=== PATIENT | female | born 1960 | race Caucasian/White ===

== ENCOUNTER 2022-11-05 09:53 | Outpatient (OUT) | payer MEDICAID, SELFPAY ==
[2022-11-05 12:11] LABS: Alanine Aminotransferase 50 U/L (14-59); Albumin Globulin Ratio 0.9; Alkaline Phosphatase 54 U/L (46-116); Anion Gap 13.3; Aspartate Amino Transferase 31 U/L (15-37); BUN Creatinine Ratio 18.3; Bilirubin Total 0.4 mg/dL (0.2-1.0); Calcium 9.6 mg/dL (8.5-10.1); Carbon Dioxide 26.8 mmol/L (21.0-32.0); Chloride 102 mmol/L (98-107); Chol HDL Ratio 3.8; Cholesterol 169 mg/dL (<=200); Estimated GFR (African America >60 (>=60); Estimated GFR (Non-African Ame >60 (>=60); Globulin 4.3 g/dL; Glucose 139 mg/dL (74-106); HDL Cholesterol 44 mg/dL (40-60); LDL Cholesterol Calculated 110.4 mg/dL; Potassium 4.1 mmol/L (3.5-5.1); Sodium 138 mmol/L (136-145); Total Protein 8.3 g/dL (6.4-8.2); Triglycerides 73 mg/dL (<=150); VLDL CHOLESTEROL 14.6 mg/dL
[2022-11-05 13:13] LABS: Estimated Average Glucose 148 mg/dL; Glycohemoglobin A1C 6.8 % (4.5-6.2)
== END 2022-11-05 09:54 | disposition home or self-care (01) ==
LOC: LAB 09:55
PROVIDERS: PCP Family Medicine; Visit Provider Family Medicine
DX: I12.9 Hypertensive chronic kidney disease with stage 1 through stage 4 chronic kidney disease, or unspecified chronic kidney disease (principal); N18.31 Chronic kidney disease, stage 3a; E11.22 Type 2 diabetes mellitus with diabetic chronic kidney disease; E78.2 Mixed hyperlipidemia
CPT/HCPCS: 36415; 80053; 80061; 83036

== ENCOUNTER 2022-12-24 13:37 | Outpatient (OUT) | payer MEDICAID, SELFPAY ==
[2022-12-24 14:29] LABS: Free T4 1.35 ng/dL (0.76-1.46)
[2022-12-24 14:34] LABS: Thyroid Stimulating Hormone 2.117 uIU/mL (0.358-3.740)
== END 2022-12-24 13:38 | disposition home or self-care (01) ==
LOC: LAB 13:38
PROVIDERS: PCP Family Medicine; Visit Provider Family Medicine
DX: E06.3 Autoimmune thyroiditis (principal); E03.9 Hypothyroidism, unspecified; G93.32 Myalgic encephalomyelitis/chronic fatigue syndrome
CPT/HCPCS: 36415; 84439; 84443

== ENCOUNTER 2023-06-16 08:15 | Outpatient (OUT) | payer MEDICAID, SELFPAY ==
[2023-06-16 10:09] LABS: Estimated Average Glucose 166 mg/dL; Glycohemoglobin A1C 7.4 % (4.5-6.2)
== END 2023-06-16 08:16 | disposition home or self-care (01) ==
LOC: LAB 08:15
PROVIDERS: PCP Family Medicine; Visit Provider Family Medicine
DX: E11.22 Type 2 diabetes mellitus with diabetic chronic kidney disease (principal); N18.31 Chronic kidney disease, stage 3a
CPT/HCPCS: 36415; 83036

== ENCOUNTER 2023-10-07 10:29 | Outpatient (OUT) | payer MEDICAID, SELFPAY ==
--- OUTSIDE RECORDS SUMMARY | 2023-10-07 10:52 | XMS_ITS | CCD ---
Author Organization [facility] Care Team Providers Care Coke Wheeler Name Role Phone COLT BOGGS Referring Unavailable HEMEYER, COLT Primary Care Unavailable RENNO, ANAS Attending Unavailable RENNO, ANAS Admitting Unavailable OK Procedure Practitioner Unavailab REG Molina Surgeon Unavailable OK Procedure Practitioner Unavailab MARIBEL Richardson Surgeon Unavail able OK Procedure Practitioner Unavailab TK Ha A Surgeon Unavailable OK Procedure Practitioner Unavailab le UNKNOWN, PROVIDER Surgeon Unavailable HEMEYER ., DR DALEY Attending Unavailable HEMEYER ., DR DALEY Primary Care Unavailable HEMEYER ., DR DALEY Admitting Unavailable HEMEYER ., DR DALEY Consulting Unavailable HEMEYER ., DR DALEY Primary Care Unavailable HEMEYER ., DR DALEY Admitting Unavailable HEMEYER ., DR DALEY Attending Unavailable HEMEYER ., DR DALEY Attending Unavailable HEMEYER ., DR DALEY Consulting Unavailable HEMEYER ., DR DALEY Primary Care Unavailable HEMEYER ., DR DALEY Admitting Unavailable HEMEYER ., DR DALEY Attending Unavailable HEMEYER ., DR DALEY Consulting Unavailable HEMEYER ., DR DALEY Primary Care Unavailable HEMEYER ., DR DALEY Admitting Unavailable HEMEYER ., DR DALEY Consulting Unavailable HEMEYER ., DR DALEY Primary Care Unavailable HEMEYER ., DR DALEY Admitting Unavailable HEMEYER ., DR DALEY Attending Unavailable HEMEYER, COLT J Attending Unavailable Allergies Allergy Classification Reported Allergen(s) Allergy Type Date of Onset Reaction(s) Facility (2 sources) Nalbuphine Drug Allergy 09-13-2013 [facility] Repository Problems Problem Classification Problem Date Documented Da te Episodic/Chronic Cardiac dysrhythmias (1 source) Tachycardia, unspecified; Translations: [TACHYCARDIA, UNSPECIFIED] Onset: 05-23-2018 Episodic Chronic kidney disease (1 source) Chronic kidney disease; Translations: [CHRONIC KIDNEY DISEASE STAGE 3A] Onset: 02-28-2022 Diabetes mellitus with complications (5 sources) Type 2 diabetes mellitus with diabetic chronic kidney disease; Translations: [TYPE 2 DM W/DIABETIC CKD] Onset: 02-28-2022 Chronic Diabetes mellitus without complication (1 source) Type 2 diabetes mellitus without complications; Translations: [TYPE 2 DIABETES MELLITUS WITHOUT COMPLICATIONS] Onset: 05-23-2018 Chronic Disorders of lipid metabolism (2 sources) Hyperlipidemia, unspecified; Translations: [Mixed hyperlipidemia] Onset: 05-23-2018 Chronic Essential hypertension (1 source) Essential (primary) hypertension; Translations: [ESSENTIAL (PRIMARY) HYPERTENSION] Onset: 05-23-2018 Chronic Hypertension with complications and secondary hypertension (4 sources) Hypertensive chronic kidney disease with stage 1 through stage 4 chronic kidney disease, or unspecified chronic kidney disease; Translations: [HTN CKD W/STAGE 1-4 CKD/UNS CKD] Onset: 02-25-2022 Chronic Malaise and fatigue (4 sources) Chronic fatigue, unspecified; Translations: [CHRONIC FATIGUE UNSPECIFIED] Onset: 07-04-2022 Chronic Other aftercare (1 source) halfway (current) use of aspirin; Translations: [ALF (CURRENT) USE OF ASPIRIN] Onset: 05-23-2018 Episodic Other aftercare (1 source) 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; Translations: [ALF (CURRENT) USE OF ORAL HYPOGLYCEMIC DRUGS] Onset: 05-23-2018 Other nervous system disorders (1 source) Encephalopathy, unspecified; Translations: [ENCEPHALOPATHY, UNSPECIFIED] Onset: 05-23-2018 Chronic Residual codes; unclassified (2 sources) Altered mental status, unspecified; Translations: [ALTERED MENTAL STATUS, UNSPECIFIED] Onset: 05-23-2018 Episodic Residual codes; unclassified (1 source) Acquired absence of other specified parts of digestive tract; Translations: [ACQUIRED ABSENCE OF OTHER SPECIFIED PARTS OF DIGESTIVE TRACT] Onset: 05-23-2018 Episodic Respiratory failure; insufficiency; arrest (adult) (1 source) Acute respiratory failure with hypoxia; Translations: [ACUTE RESPIRATORY FAILURE WITH HYPOXIA] Onset: 05-23-2018 Episodic Thyroid disorders (4 sources) Hypothyroidism, unspecified; Translations: [Thyrotoxicosis with diffuse goiter without thyrotoxic crisis or storm] Onset: 05-23-2018 Chronic Unclassified (1 source) AMS, LETHARGY Onset: 05-23-2018 Unclassified (1 source) AMS Onset: 05-23-2018 Results Test Name Value Interpretation Reference Range Facility GLYCOHEMOGLOBIN A1Con 2022 ADA RECOMMENDATION SEE BELOW Normal [facility] Comment on above: Result Comment: ADA RECOMMENDED LIMIT 4.0 - 6.0 ADA THERAPEUTIC TARGET < 7.0 ACTION SUGGESTED > 7.0 Performed By: #### A 1C #### [facility] [address] [place] [address] Dr. Veronica Floyd Glucose [Mass/Vol] 160 mg/dL Normal [facility] Comment on above: Performed By: #### A 1C #### [facility] [address] [place] [address] Dr. Veronica Floyd HbA1c (Bld) [Mass fraction] 7.2 % Critically high 4.5-6.2 [facility] Comment on above: Performed By: #### A 1C #### [facility] [address] [place] [address] Dr. Veronica Floyd FREE T3on 07-04-2022 FREE T3 2.59 pg/mlL Normal 2.18-3.98 [facility] Comment on above: Performed By: #### T SH, FT3 #### [facility] [address] [place] [address] Dr. Veronica Floyd FREE T4on 07-04-2022 Free T4 [Mass/Vol] 1.25 ng/dL Normal 0.76-1.46 [facility] Comment on above: Performed By: #### F T4 #### [facility] [address] [place] [address] Dr. Veronica Floyd TSHon 07-04-2022 TSH 3.607 uIU/mL Normal 0.358-3.740 [facility] Comment on above: Performed By: #### T SH, FT3 #### [facility] [address] [place] [address] Dr. Veronica Floyd GLYCOHEMOGLOBIN A1Con 2021 ADA RECOMMENDATION SEE BELOW Normal [facility] Comment on above: Result Comment: ADA RECOMMENDED LIMIT 4.0 - 6.0 ADA THERAPEUTIC TARGET < 7.0 ACTION SUGGESTED > 7.0 Performed By: #### A 1C #### [facility] [address] [address] [address] Veronica Floyd Glucose [Mass/Vol] 154 mg/dL Normal [facility] Comment on above: Performed By: #### A 1C #### [facility] [address] [place] [address] Dr. Veronica Floyd HbA1c (Bld) [Mass fraction] 7.0 % Critically high 4.5-6.2 [facility] Comment on above: Performed By: #### A 1C #### [facility] [address] [place] [address] Dr. Veronica Floyd LIPID PROFILEon 02-25-2022 CHOL-HDL RATIO NORM SEE BELOW Normal [facility] Comment on above: Result Comment: 3.3 - 4.4 LOW RISK 4.4 - 7.1 AVERAGE RISK 7.1 - 11.0 MODERATE RISK >11.0 HIGH RISK Performed By: #### C MP, LIPID #### [facility] [address] [place] [address] Dr. Veronica Floyd Cholesterol [Mass/Vol] 173 mg/dL Normal <=200 [facility] Comment on above: Performed By: #### C MP, LIPID #### [facility] [address] [place] [address] Dr. Veronica Floyd Cholesterol in HDL [Mass/Vol] 44 mg/dL Normal 40-60 [facility] Comment on above: Performed By: #### C MP, LIPID #### [facility] [address] [place] [address] Dr. Veronica Floyd Cholesterol in LDL [Mass/Vol] 114.6 mg/dL Normal [facility] Comment on above: Performed By: #### C MP, LIPID #### [facility] [address] [place] [address] Dr. Veronica Floyd Cholesterol.total/ Cholesterol in HDL [Mass ratio] 3.9 {ratio} Normal [facility] Comment on above: Performed By: #### C MP, LIPID #### [facility] [address] [place] [address] Dr. Veronica Floyd HDL NORMAL > or = 60 mg/dl - LO W CARDIOVASCULAR RISK <40 mg/dl - HIGH CARDIOVASCULAR RISK Normal [facility] Comment on above: Performed By: #### C MP, LIPID #### [facility] [address] [address] [address] Veronica Floyd LDL CALC NORMAL SEE BELOW Normal [facility] Comment on above: Result Comment: <100 mg/dl OPTIMAL 100 - 129 mg/dl NEAR OR ABOVE OPTIMAL 130 - 159 mg/dl BORDERLINE HIGH 160 - 189 mg/dl HIGH >190 mg/dl VERY HIGH Performed By: #### C MP, LIPID #### [facility] [address] [address] [address] Veronica Floyd Triglyceride [Mass/Vol] 72 mg/dL Normal <=150 [facility] Comment on above: Performed By: #### C MP, LIPID #### [facility] [address] [address] [address] Veronica Floyd VLDL CALC 14.4 mg/dL Normal [facility] Comment on above: Performed By: #### C MP, LIPID #### [facility] [address] [address] [address] Veronica Floyd PROF 14(COMP METB)on 02-25- 022 Albumin [Mass/Vol] 4.0 g/dL Normal 3.4-5.0 [facility] Comment on above: Performed By: #### C MP, LIPID #### [facility] [address] [address] [address] Veronica Floyd Albumin/Globulin [Mass ratio] 1.0 {ratio} Normal [facility] Comment on above: Performed By: #### C MP, LIPID #### [facility] [address] [address] [address] Veronica Floyd ALP [Catalytic activity/Vol] 53 U/L Normal 46-116 [facility] Comment on above: Performed By: #### C MP, LIPID #### [facility] [address] [address] [address] Veronica Floyd ALT [Catalytic activity/Vol] 45 U/L Normal 14-59 [facility] Comment on above: Performed By: #### C MP, LIPID #### [facility] [address] [address] [address] Veronica Floyd Anion gap [Moles/Vol] 9.8 mmol/L Normal [facility] Comment on above: Performed By: #### C MP, LIPID #### [facility] [address] [address] [address] Veronica Floyd AST [Catalytic activity/Vol] 23 U/L Normal 15-37 [facility] Comment on above: Performed By: #### C MP, LIPID #### [facility] [address] [address] [address] Veronica Floyd Bilirubin [Mass/Vol] 0.3 mg/dL Normal 0.2-1.0 [facility] Comment on above: Performed By: #### C MP, LIPID #### [facility] [address] [address] [address] Veronica Floyd Calcium [Mass/Vol] 9.5 mg/dL Normal 8.5-10.1 [facility] Comment on above: Performed By: #### C MP, LIPID #### [facility] [address] [address] [address] Veronica Floyd Chloride [Moles/Vol] 101 mmol/L Normal 98-107 [facility] Comment on above: Performed By: #### C MP, LIPID #### [facility] [address] [address] [address] Veronica Floyd CO2 [Moles/Vol] 28.4 mmol/L Normal 21.0-32.0 [facility] Comment on above: Performed By: #### C MP, LIPID #### [facility] [address] [address] [address] Veronica Floyd Creatinine [Mass/Vol] 0.90 mg/dL Normal 0.55-1.02 [facility] Comment on above: Performed By: #### C MP, LIPID #### [facility] [address] [address] [address] Veronica Floyd EGFR-AF FRENCH >60 Normal >=60 [facility] Comment on above: Performed By: #### C MP, LIPID #### [facility] [address] [address] [address] Veronica Floyd EGFR-NON AF FRENCH >60 Normal >=60 [facility] Comment on above: Performed By: #### C MP, LIPID #### [facility] [address] [address] [address] Veronica Floyd Globulin (S) [Mass/Vol] 4.1 g/dL Normal [facility] Comment on above: Performed By: #### C MP, LIPID #### [facility] [address] [address] [address] Veronica Floyd Glucose [Mass/Vol] 136 mg/dL Critically high 74-106 [facility] Comment on above: Performed By: #### C MP, LIPID #### [facility] [address] [place] [address] Dr. Veronica Floyd Potassium [Moles/Vol] 4.2 mmol/L Normal 3.5-5.1 [facility] Comment on above: Performed By: #### C MP, LIPID #### [facility] [address] [place] [address] Dr. Veronica Floyd Protein [Mass/Vol] 8.1 g/dL Normal 6.4-8.2 [facility] Comment on above: Performed By: #### C MP, LIPID #### [facility] [address] [place] [address] Dr. Veronica Floyd Sodium [Moles/Vol] 135 mmol/L Critically low 136-145 [facility] Comment on above: Performed By: #### C MP, LIPID #### [facility] [address] [place] [address] Dr. Veronica Floyd Urea nitrogen [Mass/Vol] 18.0 mg/dL Normal 7.0-18.0 [facility] Comment on above: Performed By: #### C MP, LIPID #### [facility] [address] [place] [address] Dr. Veronica Floyd Urea nitrogen/Creatinin e [Mass ratio] 20.0 mg/mg Normal [facility] Comment on above: Performed By: #### C MP, LIPID #### [facility] [address] [address] [address] Veronica Floyd GLYCOHEMOGLOBIN A1Con 2021 ADA RECOMMENDATION SEE BELOW Normal [facility] Comment on above: Result Comment: ADA RECOMMENDED LIMIT 4.0 - 6.0 ADA THERAPEUTIC TARGET < 7.0 ACTION SUGGESTED > 7.0 Performed By: #### A 1C #### [facility] [address] [address] [address] Veronica Floyd Glucose [Mass/Vol] 137 mg/dL Normal [facility] Comment on above: Performed By: #### A 1C #### [facility] [address] [address] [address] Veronica Floyd HbA1c (Bld) [Mass fraction] 6.4 % Critically high 4.5-6.2 [facility] Comment on above: Performed By: #### A 1C #### [facility] [address] [place] [address] Dr. Veronica Floyd BASIC METABOLIC PANELon 05-16 Calcium mass conc 9.5 mg/dL Normal 8.6-10.3 [facility] Comment on above: Order Comment: No: D o not add to previous draw Performed By: #### 3 1018 #### [facility] [address] [place] [address], [place] Chloride molar conc 102 mmol/L Normal 98-107 [facility] Comment on above: Order Comment: No: D o not add to previous draw Performed By: #### 3 1018 #### [facility] [address] [place] [address], [place] CO2 molar conc 30 mmol/L Normal 21-31 [facility] Comment on above: Order Comment: No: D o not add to previous draw Performed By: #### 3 1018 #### [facility] [address] [place] [address], [place] Creatinine mass conc 1.14 mg/dL Normal 0.60-1.20 [facility] Comment on above: Order Comment: No: D o not add to previous draw Performed By: #### 3 1018 #### [facility] [address] [place] [address], [place] GFR/1.73 sq M predicted among blacks MDRD vol rate/area (S/P/Bld) 59 ml/min/1.73sq m Abnormal >60 [facility] Comment on above: Order Comment: No: D o not add to previous draw Performed By: #### 3 1018 #### [facility] [address] [place] [address], [place] GFR/1.73 sq M predicted among non-blacks MDRD vol rate/area (S/P/Bld) 49 ml/min/1.73sq m Abnormal >60 [facility] Comment on above: Order Comment: No: D o not add to previous draw Performed By: #### 3 1018 #### [facility] [address] [place] [address], [place] Glucose mass conc 132 mg/dL High 70-100 [facility] Comment on above: Order Comment: No: D o not add to previous draw Performed By: #### 3 1018 #### [facility] [address] [place] [address], [place] Potassium molar conc 3.8 mmol/L Normal 3.5-5.1 [facility] Comment on above: Order Comment: No: D o not add to previous draw Performed By: #### 3 1018 #### [facility] [address] [place] [address], [place] Sodium molar conc 141 mmol/L Normal 136-145 [facility] Comment on above: Order Comment: No: D o not add to previous draw Performed By: #### 3 1018 #### [facility] [address] [place] [address], [place] Urea nitrogen mass conc 28 mg/dL High 7-25 [facility] Comment on above: Order Comment: No: D o not add to previous draw Performed By: #### 3 1018 #### [facility] [address] CBC COMPLETE BLOOD COUNTon 0 - Erythrocyte distribution width Ratio (RBC) 14.6 % Normal 11.5-15.0 [facility] Comment on above: Order Comment: No: D o not add to previous draw Performed By: #### 3 1018 #### [facility] [address] [place] [address], [facility] Hematocrit Volume Fraction (Bld) 39.7 % Normal 36.0-45.0 [facility] Comment on above: Order Comment: No: D o not add to previous draw Performed By: #### 3 1018 #### [facility] [address] [place] [address], [facility] Hemoglobin mass conc (Bld) 12.8 g/dL Normal 12.0-15.0 [facility] Comment on above: Order Comment: No: D o not add to previous draw Performed By: #### 3 1018 #### [facility] [address] [facility] [place] [address], [facility] MCH Entitic mass (RBC) 27.9 pg Normal 27.0-33.0 [facility] Comment on above: Order Comment: No: D o not add to previous draw Performed By: #### 3 1018 #### [facility] [address] [facility] [place] [address], [facility] MCHC mass conc (RBC) 32.2 g/dL Normal 32.0-35.0 [facility] Comment on above: Order Comment: No: D o not add to previous draw Performed By: #### 3 1018 #### [facility] [address] [place] [address], [facility] MCV Entitic volume (RBC) 86.7 fL Normal 82.0-98.0 [facility] Comment on above: Order Comment: No: D o not add to previous draw Performed By: #### 3 1018 #### [facility] [address] [facility]. [address] Nucleated RBC/100 WBC Ratio (Bld) 0 % Normal 0-0 [facility] Comment on above: Order Comment: No: D o not add to previous draw Performed By: #### 3 1018 #### [facility] [address] [place] [address], [facility] PLAT CNT 256 10*3/uL Normal 150-400 [facility] Comment on above: Order Comment: No: D o not add to previous draw Performed By: #### 3 1018 #### [facility] [address] RBC #/vol (Bld) 4.58 10*6/uL Normal 3.80-5.00 [facility] Comment on above: Order Comment: No: D o not add to previous draw Performed By: #### 3 1018 #### [facility] [address] [facility]. [address] WBC #/vol (Bld) 5.70 10*3/uL Normal 4.00-10.60 [facility] Comment on above: Order Comment: No: D o not add to previous draw Performed By: #### 3 1018 #### [facility] [address] [facility]. [address] IMMUNOGLOB BLon 06-03-2018 IgA mass conc 364 mg/dL Normal 60-413 [facility] Comment on above: Order Comment: No: D o not add to previous draw Performed By: #### 3 1018 #### [facility] [address] IgG mass conc 1180 mg/dL Normal 591-1540 [facility] Comment on above: Order Comment: No: D o not add to previous draw Performed By: #### 3 1018 #### [facility] [address] [place] [address], [facility] IgM mass conc 187 mg/dL Normal 54-285 [facility] Comment on above: Order Comment: No: D o not add to previous draw Performed By: #### 3 1018 #### [facility] [address] [place] [address], [facility] IMMUNOGLOBULIN Andrea 9 [place] Normal [facility] Comment on above: Order Comment: No: D o not add to previous draw IMMUNOGLOBULIN E 230 IU/mL High <101 [facility] Comment on above: Order Comment: No: D o not add to previous draw POC GLUCOSE LABon 06-03-2018 Glucose mass conc 250 mg/dL High 70-100 [facility] Comment on above: Performed By: #### 3 1018 #### [facility] [address] [place] [address], [facility] Glucose mass conc 254 mg/dL High 70-100 [facility] Comment on above: Performed By: #### 3 1018 #### [facility] [address] [place] [address], [facility] Glucose mass conc 131 mg/dL High 70-100 [facility] Comment on above: Performed By: #### 3 1018 #### [facility] [address] [place] [address], [facility] Glucose mass conc 117 mg/dL High 70-100 [facility] Comment on above: Performed By: #### 3 1018 #### [facility] [address] [place] [address], [place] BASIC METABOLIC PANELon 05-15 Calcium mass conc 9.4 mg/dL Normal 8.6-10.3 [facility] Comment on above: Order Comment: No: D o not add to previous draw Performed By: #### 3 1018 #### [facility] [address] [place] [address], [facility] Chloride molar conc 97 mmol/L Low 98-107 [facility] Comment on above: Order Comment: No: D o not add to previous draw Performed By: #### 3 1018 #### [facility] [address] [place] [address], [facility] CO2 molar conc 30 mmol/L Normal 21-31 [facility] Comment on above: Order Comment: No: D o not add to previous draw Performed By: #### 3 1018 #### [facility] [address] [place] [address], [place] Creatinine mass conc 1.15 mg/dL Normal 0.60-1.20 [facility] Comment on above: Order Comment: No: D o not add to previous draw Performed By: #### 3 1018 #### [facility] [address] [place] [address], [place] GFR/1.73 sq M predicted among blacks MDRD vol rate/area (S/P/Bld) 59 ml/min/1.73sq m Abnormal >60 [facility] Comment on above: Order Comment: No: D o not add to previous draw Performed By: #### 3 1018 #### [facility] [address] [place] [address], [facility] GFR/1.73 sq M predicted among non-blacks MDRD vol rate/area (S/P/Bld) 49 ml/min/1.73sq m Abnormal >60 [facility] Comment on above: Order Comment: No: D o not add to previous draw Performed By: #### 3 1018 #### [facility] [address] [place] [address], [place] Glucose mass conc 172 mg/dL High 70-100 [facility] Comment on above: Order Comment: No: D o not add to previous draw Performed By: #### 3 1018 #### [facility] [address] [place] [address], [place] Potassium molar conc 2.9 mmol/L Low 3.5-5.1 [facility] Comment on above: Order Comment: No: D o not add to previous draw Performed By: #### 3 1018 #### [facility] [address] [place] [address], [facility] Sodium molar conc 138 mmol/L Normal 136-145 [facility] Comment on above: Order Comment: No: D o not add to previous draw Performed By: #### 3 1018 #### [facility] [address] [place] [address], [facility] Urea nitrogen mass conc 24 mg/dL Normal 7-25 [facility] Comment on above: Order Comment: No: D o not add to previous draw Performed By: #### 3 1018 #### [facility] [address] [place] [address], [facility] HEMOGLOBIN A1Con 06-02-2018 Hemoglobin A1c/Hemoglobin.tot al mass fraction (Bld) 7.1 % High 4.0-6.0 [facility] Comment on above: Order Comment: Yes: Add to Previous draw if able Performed By: #### 3 1018 #### [facility] [address] [facility] [place] [address], [facility] Hemoglobin A1c/Hemoglobin.tot al mass fraction (Bld) 157 mg/dL High 70-126 [facility] Comment on above: Order Comment: Yes: Add to Previous draw if able Performed By: #### 3 1018 #### [facility] [address] [place] [address], [facility] MAGNESIUM BLOODon 06-02-2018 Magnesium mass conc 2.5 mg/dL Normal 1.9-2.7 [facility] Comment on above: Performed By: #### 3 1018 #### [facility] [address] [place] [address], [facility] MISCELLANEOUS PATHon 019 RESULT Results faxed to [facility] and sent to HIM Normal [facility] Comment on above: Order Comment: ARUP# [id number] ALLERGEN, FOOD, ALPHA-Gal PANEL CPT 99596 X4 Result Comment: Test performed at [facility], [address] [place] [id number]. Results faxed to Dr. Arroyo at [phone] Performed By: #### 3 1018 #### [facility] [address] [place] [address], [place] POC GLUCOSE LABon 06-02-2018 Glucose mass conc 243 mg/dL High 70-100 [facility] Comment on above: Performed By: #### 3 1018 #### [facility] [address] [place] [address], [place] Glucose mass conc 236 mg/dL High 70-100 [facility] Comment on above: Performed By: #### 3 1018 #### [facility] [address] [place] [address], [place] Glucose mass conc 154 mg/dL High 70-100 [facility] Comment on above: Performed By: #### 3 1018 #### [facility] [address] [place] [address], [place] Glucose mass conc 215 mg/dL High 70-100 [facility] Comment on above: Performed By: #### 3 1018 #### [facility] [address] [place] [address], [place] BASIC METABOLIC PANELon 05-15 Calcium mass conc 9.5 mg/dL Normal 8.6-10.3 [facility] Comment on above: Order Comment: No: D o not add to previous draw Performed By: #### 3 1018 #### [facility] [address] [place] [address], [place] Chloride molar conc 95 mmol/L Low 98-107 [facility] Comment on above: Order Comment: No: D o not add to previous draw Performed By: #### 3 1018 #### [facility] [address] [place] [address], [place] CO2 molar conc 30 mmol/L Normal 21-31 [facility] Comment on above: Order Comment: No: D o not add to previous draw Performed By: #### 3 1018 #### [facility] [address] [place] [address], [facility] Creatinine mass conc 0.78 mg/dL Normal 0.60-1.20 [facility] Comment on above: Order Comment: No: D o not add to previous draw Performed By: #### 3 1018 #### [facility] [address] [place] [address], [place] GFR/1.73 sq M predicted among blacks MDRD vol rate/area (S/P/Bld) mL/min/{1.73_m2} Normal >60 [facility] Comment on above: Order Comment: No: D o not add to previous draw Performed By: #### 3 1018 #### [facility] [address] [place] [address], [facility] GFR/1.73 sq M predicted among non-blacks MDRD vol rate/area (S/P/Bld) mL/min/{1.73_m2} Normal >60 [facility] Comment on above: Order Comment: No: D o not add to previous draw Performed By: #### 3 1018 #### [facility] [address] [place] [address], [facility] Glucose mass conc 160 mg/dL High 70-100 [facility] Comment on above: Order Comment: No: D o not add to previous draw Performed By: #### 3 1018 #### [facility] [address] [place] [address], [place] Potassium molar conc 3.1 mmol/L Low 3.5-5.1 [facility] Comment on above: Order Comment: No: D o not add to previous draw Performed By: #### 3 1018 #### [facility] [address] [place] [address], [place] Sodium molar conc 138 mmol/L Normal 136-145 [facility] Comment on above: Order Comment: No: D o not add to previous draw Performed By: #### 3 1018 #### [facility] [address] [facility]. [address] Urea nitrogen mass conc 16 mg/dL Normal 7-25 [facility] Comment on above: Order Comment: No: D o not add to previous draw Performed By: #### 3 1018 #### [facility] [address] [facility]. [address] CBC W/DIFFon 06-01-2018 ABS BASOPHILS 0.0 10*3/uL Normal 0.0-0.2 [facility] Comment on above: Order Comment: No: D o not add to previous draw Performed By: #### 2 5508, 94369, 04229, 35605 #### [facility] [address] ABS IMM GRANS 0.1 10*3/uL Normal 0.0-0.2 [facility] Comment on above: Order Comment: No: D o not add to previous draw Performed By: #### 2 5508, 22168, 36374, 52538 #### [facility] [address] [facility]. [address] ABS NEUTROPHILS 5.1 10*3/uL Normal 1.6-7.6 [facility] Comment on above: Order Comment: No: D o not add to previous draw Performed By: #### 2 5508, 01243, 44874, 46256 #### [facility] [address] [facility]. [address] Basophils #/vol (Bld) 0.5 % Normal 0.0-1.0 [facility] Comment on above: Order Comment: No: D o not add to previous draw Performed By: #### 2 5508, 16241, 58454, 36264 #### [facility] [address] [place] [address], [facility] Eosinophils #/vol (Bld) 0.0 10*3/uL Normal 0.0-0.5 [facility] Comment on above: Order Comment: No: D o not add to previous draw Performed By: #### 2 5508, 33171, 53994, 28595 #### [facility] [address] [place] [address], [facility] Eosinophils/100 WBC (Bld) 0.1 % Normal 0.0-6.0 [facility] Comment on above: Order Comment: No: D o not add to previous draw Performed By: #### 2 5507, 96966, 28413, 69359 #### [facility] [address] [place] [address], [facility] Erythrocyte distribution width Ratio (RBC) 14.4 % Normal 11.5-15.0 [facility] Comment on above: Order Comment: No: D o not add to previous draw Performed By: #### 2 550, 08732, 13618, 29247 #### [facility] [address] [place] [address], [facility] Hematocrit Volume Fraction (Bld) 39.8 % Normal 36.0-45.0 [facility] Comment on above: Order Comment: No: D o not add to previous draw Performed By: #### 2 550, 12433, 15218, 62221 #### [facility] [address] [place] [address], [facility] Hemoglobin mass conc (Bld) 13.4 g/dL Normal 12.0-15.0 [facility] Comment on above: Order Comment: No: D o not add to previous draw Performed By: #### 2 550, 18622, 97593, 00590 #### [facility] [address] [place] [address], [facility] IMMATURE GRANS 1.6 % High 0.0-1.0 [facility] Comment on above: Order Comment: No: D o not add to previous draw Performed By: #### 2 5507, 74319, 13357, 29306 #### [facility] [address] [place] [address], [facility] Lymphocytes #/vol (Bld) 1.7 10*3/uL Normal 1.2-4.0 [facility] Comment on above: Order Comment: No: D o not add to previous draw Performed By: #### 2 5507, , 44831, 77446 #### [facility] [address] [place] [address], [facility] Lymphocytes/100 WBC (Bld) 22.3 % Normal 20.0-45.0 [facility] Comment on above: Order Comment: No: D o not add to previous draw Performed By: #### 2 5507, , 61214, 20234 #### [facility] [address] MCH Entitic mass (RBC) 27.7 pg Normal 27.0-33.0 [facility] Comment on above: Order Comment: No: D o not add to previous draw Performed By: #### 2 5507, 55599, 35437, 86974 #### [facility] [address] [place] [address], [facility] MCHC mass conc (RBC) 33.7 g/dL Normal 32.0-35.0 [facility] Comment on above: Order Comment: No: D o not add to previous draw Performed By: #### 2 5507, 06616, 04814, 65422 #### [facility] [address] [place] [address], [facility] MCV Entitic volume (RBC) 82.4 fL Normal 82.0-98.0 [facility] Comment on above: Order Comment: No: D o not add to previous draw Performed By: #### 2 5507, 79756, 67072, 45936 #### [facility] [address] [place] [address], [facility] Monocytes #/vol (Bld) 0.7 10*3/uL Normal 0.1-1.0 [facility] Comment on above: Order Comment: No: D o not add to previous draw Performed By: #### 2 8, 60714, 63508, 47293 #### [facility] [address] [place] [address], [facility] MONOS 8.7 % Normal 5.0-12.0 [facility] Comment on above: Order Comment: No: D o not add to previous draw Performed By: #### 2 8, 77694, 21593, 01882 #### [facility] [address] [place] [address], [facility] Neutrophils/100 WBC (Bld) 66.8 % Normal 40.0-72.0 [facility] Comment on above: Order Comment: No: D o not add to previous draw Performed By: #### 2 5507, 28197, 65699, 85019 #### [facility] [address] [place] [address], [facility] Nucleated RBC/100 WBC Ratio (Bld) 0 % Normal 0-0 [facility] Comment on above: Order Comment: No: D o not add to previous draw Performed By: #### 2 550, 08721, 00432, 22702 #### [facility] [address] [place] [address], [facility] PLAT CNT 293 10*3/uL Normal 150-400 [facility] Comment on above: Order Comment: No: D o not add to previous draw Performed By: #### 2 8, 35066, 39769, 47262 #### [facility] [address] [place] [address], [facility] RBC #/vol (Bld) 4.83 10*6/uL Normal 3.80-5.00 [facility] Comment on above: Order Comment: No: D o not add to previous draw Performed By: #### 2 5507, 95127, 48757, 21656 #### [facility] [address] [place] [address], [facility] WBC #/vol (Bld) 7.70 10*3/uL Normal 4.00-10.60 [facility] Comment on above: Order Comment: No: D o not add to previous draw Performed By: #### 2 5508, 69643, 86740, 15082 #### [facility] [address] EEG Reporton 06-01-2018 EEG Report Name: Shabana Stallworth [facility] MR#: [id number] Age: 58 Physician: Colt Boggs M.D. Date: From 6:30 on May 30, 2018 until 0630 hours on May 31, 2018 Lab#: Date of : 1960 Patient Type: I NEURODIAGNOSTIC SERVICES REPORT [address] [place], [place] [address] Board of the [place] [employer] Accredited retail loss prevention officer: Jesse Muir. EEG DURATION: 23:33 and 0 seconds. CLINICAL HISTORY: This is a 58-year-old white female who was found confused at work. She apparently could not remember her name or events of the day. Her stated that she had been sleeping more the past 4 days. She had been complaining of fatigue and drove past the house. denies any facial droop or weakness or extremity deficits. PAST MEDICAL HISTORY: MEDICATIONS: Acetaminophen, acyclovir, ampicillin, ceftriaxone, etomidate, fentanyl citrate, rocuronium, vancomycin. OTHER PARAMETERS: EKG. ACTIVITIES: Stupor, 100%. 1. Generalized intermittent rhythmic slow, generalized and lateralized left hemisphere, 1-3 hertz, 20-70 microvolts seen in 30%-40% of recording. 2. Posterior background, not clearly seen. 3. Sleep spindles 12-16 hertz, 20-70 microvolts seen during sleep. 4. Excessive fast 15-18 hertz, 20-60 microvolts seen throughout the record. 5. Stimulation touch, auditory and pain stimuli, EEG reactivity seen. CLASSIFICATION: Abnormal II (lethargy 10-20 scalp electrodes, anterior temporal electrodes, standard electrodes). 1. Intermittent rhythmic slow, generalized and lateralized left hemisphere. 2. Excessive fast, generalized. IMPRESSION: Continuous video EEG monitoring was reviewed from 6:30 on May 30, 2018 until 0630 on 05/31/2018 and is suggestive of bilateral cortical dysfunction maximum in the left hemisphere. This EEG also shows moderate diffuse encephalopathy. The excessive fast activity seen in this recording could be secondary to the effect of medications. No epileptiform discharges or EEG seizures were seen during this recording. There was no push button event. Electronically Signed by: Raghu Matson MD 06/02/2018 09:51 P Raghu Matson MD Date Dict: 05/31/2018/10:33 Dipak/Raghu Matson MD Date Trans: 06/01/2018 05:26 Dipak/luis e [id number] cc: Colt Boggs M.D. [address] [place] [id number] Normal [facility] MAGNESIUM BLOODon 06-01-2018 Magnesium mass conc 2.3 mg/dL Normal 1.9-2.7 [facility] Comment on above: Performed By: #### 2 5508, 60671, 34022, 74477 #### [facility] [address] [place] [address], [place] POC GLUCOSE LABon 06-01-2018 Glucose mass conc 332 mg/dL High 70-100 [facility] Comment on above: Performed By: #### 3 1018 #### [facility] [address] [place] [address], [place] Glucose mass conc 224 mg/dL High 70-100 [facility] Comment on above: Performed By: #### 3 1018 #### [facility] [address] [place] [address], [place] Glucose mass conc 156 mg/dL High 70-100 [facility] Comment on above: Performed By: #### 2 5508, 19011, 23153, 12074 #### [facility] [address] [place] [address], [place] Glucose mass conc 216 mg/dL High 70-100 [facility] Comment on above: Performed By: #### 2 5508, 63193, 09400, 87772 #### [facility] [address] [place] [address], [facility] *C DIFF DNA AMPLIFICATIONon 05-31-2018 *C DIFF DNA AMPLIFICATION Clinical Report: (D) Specimen: [id number] Collected: 05/31/2018 13:15 Status: Final Last Updated: 05/31/2018 17:23 (1) No: Do not add to previous draw CDT DNA: (Final) Negative Normal [facility] Comment on above: Order Comment: No: D o not add to previous draw Performed By: #### 2 5508, 86106, 60160, 72211 #### [facility] [address] [place] [address], [facility] BASIC METABOLIC PANELon 05-15 Calcium mass conc 9.0 mg/dL Normal 8.6-10.3 [facility] Comment on above: Order Comment: No: D o not add to previous draw Performed By: #### 2 5508, 00222, 66295, 91901 #### [facility] [address] [place] [address], [place] Chloride molar conc 97 mmol/L Low 98-107 [facility] Comment on above: Order Comment: No: D o not add to previous draw Performed By: #### 2 5508, 00314, 61155, 37020 #### [facility] [address] [place] [address], [place] CO2 molar conc 32 mmol/L High 21-31 [facility] Comment on above: Order Comment: No: D o not add to previous draw Performed By: #### 2 5508, 15781, 46666, 51927 #### [facility] [address] [place] [address], [place] Creatinine mass conc 0.60 mg/dL Normal 0.60-1.20 [facility] Comment on above: Order Comment: No: D o not add to previous draw Performed By: #### 2 5508, 44969, 64078, 15903 #### [facility] [address] [place] [address], [place] GFR/1.73 sq M predicted among blacks MDRD vol rate/area (S/P/Bld) mL/min/{1.73_m2} Normal >60 [facility] Comment on above: Order Comment: No: D o not add to previous draw Performed By: #### 2 550, 73055, 36117, 55820 #### [facility] [address] [place] [address], [place] GFR/1.73 sq M predicted among non-blacks MDRD vol rate/area (S/P/Bld) mL/min/{1.73_m2} Normal >60 [facility] Comment on above: Order Comment: No: D o not add to previous draw Performed By: #### 2 5508, 21754, 60741, 18065 #### [facility] [address] [place] [address], [facility] Glucose mass conc 114 mg/dL High 70-100 [facility] Comment on above: Order Comment: No: D o not add to previous draw Performed By: #### 2 5508, 84881, 30702, 49870 #### [facility] [address] [place] [address], [place] Potassium molar conc 2.9 mmol/L Low 3.5-5.1 [facility] Comment on above: Order Comment: No: D o not add to previous draw Performed By: #### 2 5508, 83966, 64939, 45284 #### [facility] [address] [place] [address], [place] Sodium molar conc 140 mmol/L Normal 136-145 [facility] Comment on above: Order Comment: No: D o not add to previous draw Performed By: #### 2 5508, 96043, 40910, 12320 #### [facility] [address] Urea nitrogen mass conc 12 mg/dL Normal 7-25 [facility] Comment on above: Order Comment: No: D o not add to previous draw Performed By: #### 2 5507, 51891, 87835, 71402 #### [facility] [address] [facility] [address] CBC W/DIFFon 05-31-2018 ABS BASOPHILS 0.0 10*3/uL Normal 0.0-0.2 [facility] Comment on above: Order Comment: No: D o not add to previous draw Performed By: #### 2 5507, 22785, 37397, 67587 #### [facility] [address] [facility]. [address] ABS NEUTROPHILS 3.2 10*3/uL Normal 1.6-7.6 [facility] Comment on above: Order Comment: No: D o not add to previous draw Performed By: #### 2 5507, 84319, 40848, 56365 #### [facility] [address] [facility] [address] Basophils #/vol (Bld) 0.0 % Normal 0.0-1.0 [facility] Comment on above: Order Comment: No: D o not add to previous draw Performed By: #### 2 5508, 53229, 73468, 86568 #### [facility] [address] [facility] [address] Eosinophils #/vol (Bld) 0.0 10*3/uL Normal 0.0-0.5 [facility] Comment on above: Order Comment: No: D o not add to previous draw Performed By: #### 2 550, 80050, 65304, 46781 #### [facility] [address] Eosinophils/100 WBC (Bld) 0.0 % Normal 0.0-6.0 [facility] Comment on above: Order Comment: No: D o not add to previous draw Performed By: #### 2 8, 66419, 13415, 33728 #### [facility] [address] [place] [address], [facility] Erythrocyte distribution width Ratio (RBC) 14.2 % Normal 11.5-15.0 [facility] Comment on above: Order Comment: No: D o not add to previous draw Performed By: #### 2 5507, 88951, 09329, 04686 #### [facility] [address] [place] [address], [facility] GIANT PLATELETS Present Normal [facility] Comment on above: Order Comment: No: D o not add to previous draw Performed By: #### 2 5507, 22638, 10465, 82711 #### [facility] [address] Hematocrit Volume Fraction (Bld) 37.7 % Normal 36.0-45.0 [facility] Comment on above: Order Comment: No: D o not add to previous draw Performed By: #### 2 5507, 21190, 02681, 93081 #### [facility] [address] [place] [address], [facility] Hemoglobin mass conc (Bld) 12.5 g/dL Normal 12.0-15.0 [facility] Comment on above: Order Comment: No: D o not add to previous draw Performed By: #### 2 5507, 71861, 84066, 21822 #### [facility] [address] [place] [address], [facility] Lymphocytes #/vol (Bld) 1.2 10*3/uL Normal 1.2-4.0 [facility] Comment on above: Order Comment: No: D o not add to previous draw Performed By: #### 2 5508, 09549, 71692, 91654 #### [facility] [address] Lymphocytes/100 WBC (Bld) 24.3 % Normal 20.0-45.0 [facility] Comment on above: Order Comment: No: D o not add to previous draw Performed By: #### 2 5507, 24721, 73779, 08048 #### [facility] [address] [place] [address], [facility] MCH Entitic mass (RBC) 27.7 pg Normal 27.0-33.0 [facility] Comment on above: Order Comment: No: D o not add to previous draw Performed By: #### 2 5507, 84057, 37253, 46835 #### [facility] [address] MCHC mass conc (RBC) 33.2 g/dL Normal 32.0-35.0 [facility] Comment on above: Order Comment: No: D o not add to previous draw Performed By: #### 2 5507, 24389, 06923, 51085 #### [facility] [address] MCV Entitic volume (RBC) 83.6 fL Normal 82.0-98.0 [facility] Comment on above: Order Comment: No: D o not add to previous draw Performed By: #### 2 550, 99934, 04230, 62396 #### [facility] [address] METAMYELO 0.9 % High 0.0-0.0 [facility] Comment on above: Order Comment: No: D o not add to previous draw Performed By: #### 2 5507, 23793, 48365, 51470 #### [facility] [address] [place] [address], [facility] Monocytes #/vol (Bld) 0.4 10*3/uL Normal 0.1-1.0 [facility] Comment on above: Order Comment: No: D o not add to previous draw Performed By: #### 2 8, 53291, 19578, 40427 #### [facility] [address] [place] [address], [place] MONOS 7.5 % Normal 5.0-12.0 [facility] Comment on above: Order Comment: No: D o not add to previous draw Performed By: #### 2 5507, 75936, 68211, 00565 #### [facility] [address] [place] [address], [facility] MYELOS 1.9 % High .0-.0 [facility] Comment on above: Order Comment: No: D o not add to previous draw Performed By: #### 2 5507, 01581, 39309, 92616 #### [facility] [address] [place] [address], [facility] Neutrophils/100 WBC (Bld) 65.4 % Normal 40.0-72.0 [facility] Comment on above: Order Comment: No: D o not add to previous draw Performed By: #### 2 5507, 42950, 56175, 05835 #### [facility] [address] [place] [address], [facility] NRBC SCAN Present Normal [facility] Comment on above: Order Comment: No: D o not add to previous draw Performed By: #### 2 550, 72367, 07326, 44582 #### [facility] [address] [place] [address], [place] Nucleated RBC/100 WBC Ratio (Bld) 0 % Normal 0-0 [facility] Comment on above: Order Comment: No: D o not add to previous draw Performed By: #### 2 550, 94297, 07419, 44718 #### [facility] [address] [place] [address], [place] PLAT CNT 284 10*3/uL Normal 150-400 [facility] Comment on above: Order Comment: No: D o not add to previous draw Performed By: #### 2 5508, 18790, 93981, 89107 #### [facility] [address] [place] [address], [facility] RBC #/vol (Bld) 4.51 10*6/uL Normal 3.80-5.00 [facility] Comment on above: Order Comment: No: D o not add to previous draw Performed By: #### 2 5508, 19304, 31947, 13584 #### [facility] [address] [place] [address], [facility] WBC #/vol (Bld) 4.88 10*3/uL Normal 4.00-10.60 [facility] Comment on above: Order Comment: No: D o not add to previous draw Performed By: #### 2 5508, 04665, 91355, 96446 #### [facility] [address] EEG Reporton 05-31-2018 EEG Report Name: Shabana Stallworth [facility] MR#: [id number] Age: 58 Physician: Colt Boggs M.D. Date: From 6:30 on May 29, 2018, until 6:30 on May 30, 2018 Lab#: [id number] Date of : 1960 Patient Type: I NEURODIAGNOSTIC SERVICES REPORT [address] [place], [place] [address] Board of the [place] [employer] Accredited retail loss prevention officer: Jesse Muir. EEG DURATION: 23:45 and 28 seconds. CLINICAL HISTORY: This is a 58-year-old white female who was found confused at work. She apparently could not remember her name or events of the day. Her stated that she had been sleeping more the past 4 days. She had been complaining of fatigue and drove past the house. denies any facial droop or weakness, or extremity deficits. PAST MEDICAL HISTORY: MEDICATIONS: Acetaminophen, acyclovir, ampicillin, ceftriaxone, etomidate, fentanyl citrate, rocuronium, vancomycin. OTHER PARAMETERS: EKG. ACTIVITIES: Stupor, 100%. 1. Generalized intermittent rhythmic slow, generalized and lateralized left hemisphere, 1-3 hertz, 20-70 microvolts seen in 30-40% of recording. 2. Triphasic waves, generalized, seen during intermittent rhythmic slowing. 3. Posterior background of 9-10 hertz, 20-70 microvolts, seen in the posterior head region. It is waxing and waning, and is reduced by eye opening. 4. Sleep spindles 12-16 hertz, 20-70 microvolts, seen during sleep. 5. Vertex waves, 1 hertz, 20-70 microvolts, seen during sleep. 6. Stimulation; touch, auditory, and pain stimuli EEG reactivity seen. CLASSIFICATION: Abnormal II (lethargy, 10-20 scalp electrodes, anterior temporal electrodes, standard electrodes). 1. Intermittent rhythmic slow, generalized and lateralized, left hemisphere. 2. Triphasic waves, generalized, seen during intermittent rhythmic slowing. IMPRESSION: Continuous video EEG monitoring was reviewed from 6:30 on May 29, 2018, until 6:30 hours on May 30, 2018, and is suggestive of bilateral cortical dysfunction, maximum in the left hemisphere. This EEG also shows moderate diffuse encephalopathy. This study shows interval improvement. No epileptiform discharges or EEG seizures were seen during this recording. There was no push button event. Electronically Signed by: Raghu Matson MD 06/02/2018 09:51 P Raghu Matson MD Date Dict: 05/30/2018/10:09 Diapk/Raghu Matson MD Date Trans: 05/31/2018 05:14 Dipak/luis e [id number] cc: Colt Boggs M.D. [address] [place] [id number] Normal [facility] MAGNESIUM BLOODon 05-31-2018 Magnesium mass conc 1.9 mg/dL Normal 1.9-2.7 [facility] Comment on above: Order Comment: No: D o not add to previous draw Performed By: #### 2 5508, 16454, 55052, 85719 #### [facility] [address] [place] [address], [place] PHOSPHORUS BLOODon 9 Phosphate mass conc 4.0 mg/dL Normal 2.5-5.0 [facility] Comment on above: Order Comment: No: D o not add to previous draw Performed By: #### 2 5507, 01089, 27566, 14310 #### [facility] [address] [place] [address], [place] POC GLUCOSE LABon 05-31-2018 Glucose mass conc 274 mg/dL High 70-100 [facility] Comment on above: Performed By: #### 2 5507, 33321, 07203, 25332 #### [facility] [address] [place] [address], [place] Glucose mass conc 265 mg/dL High 70-100 [facility] Comment on above: Performed By: #### 2 5507, 97066, 89128, 89640 #### [facility] [address] [place] [address], [place] Glucose mass conc 118 mg/dL High 70-100 [facility] Comment on above: Performed By: #### 2 5507, 82657, 68329, 24935 #### [facility] [address] [place] [address], [place] Glucose mass conc 123 mg/dL High 70-100 [facility] Comment on above: Performed By: #### 2 5507, 04392, 81491, 45039 #### [facility] [address] [place] [address], [place] ARTERIAL BLOOD GAS WITH ICAo n 05-30-2018 BASE EXCESS 5 mmol/L High -2-2 [facility] Comment on above: Performed By: #### 2 5507, 00956, 52388, 63971 #### [facility] [address] [place] [address], [place] DELIVERY SYSTEMS MV Normal [facility] Comment on above: Performed By: #### 2 550, 96857, 23858, 35376 #### [facility] [address] [place] [address], [place] FIO2 40 % Normal 21-100 [facility] Comment on above: Performed By: #### 2 5507, 52313, 03854, 75612 #### [facility] [address] [place] [address], [place] HCO3 molar conc (Bld) 30 mmol/L High 23-27 [facility] Comment on above: Performed By: #### 2 5507, 74567, 06573, 14687 #### [facility] [address] [place] [address], [place] IONIZED CALCIUM 1.21 mmol/L Normal 1.13-1.32 [facility] Comment on above: Performed By: #### 2 5507, 10442, 88433, 86051 #### [facility] [address] [place] [address], [place] MIN VOLUME 7.7 Normal [facility] Comment on above: Performed By: #### 2 5507, 05296, 78825, 87913 #### [facility] [address] [place] [address], [place] MODALITY AC Normal [facility] Comment on above: Performed By: #### 2 550, 51140, 55956, 47343 #### [facility] [address] [place] [address], [place] Oxygen ppres (Bld) 88 mm[Hg] Normal 75-100 [facility] Comment on above: Performed By: #### 2 550, 76557, 53346, 96456 #### [facility] [address] [place] [address], [place] Oxygen saturation in Blood 95.4 % Normal 94.0-97.0 [facility] Comment on above: Performed By: #### 2 5508, 24665, 75226, 20590 #### [facility] [address] [place] [address], [facility] PCO2 43 mmHg Normal 35-45 [facility] Comment on above: Performed By: #### 2 550, 77416, 11167, 25560 #### [facility] [address] [place] [address], [facility] PEEP 8.0 CMH20 Normal [facility] Comment on above: Performed By: #### 2 5508, 51840, 66320, 11135 #### [facility] [address] [place] [address], [facility] PF RATIO 220 mmHg Normal 50-400 [facility] Comment on above: Performed By: #### 2 5508, 85928, 17567, 17790 #### [facility] [address] [place] [address], [facility] pH (Bld) 7.45 [pH] Normal 7.35-7.45 [facility] Comment on above: Performed By: #### 2 5508, 34858, 72743, 25430 #### [facility] [address] [place] [address], [facility] TIDAL VOLUME (VT) CC 400 Normal [facility] Comment on above: Performed By: #### 2 5508, 14895, 92136, 74524 #### [facility] [address] [place] [address], [facility] BASIC METABOLIC PANELon 02- Calcium mass conc 8.5 mg/dL Low 8.6-10.3 [facility] Comment on above: Order Comment: No: D o not add to previous draw Performed By: #### 2 5508, 81900, 55828, 77052 #### [facility] [address] [place] [address], [facility] Chloride molar conc 101 mmol/L Normal 98-107 [facility] Comment on above: Order Comment: No: D o not add to previous draw Performed By: #### 2 5508, 71650, 26885, 67680 #### [facility] [address] [place] [address], [place] CO2 molar conc 28 mmol/L Normal 21-31 [facility] Comment on above: Order Comment: No: D o not add to previous draw Performed By: #### 2 5508, 56552, 20061, 02910 #### [facility] [address] [place] [address], [place] Creatinine mass conc 0.59 mg/dL Low 0.60-1.20 [facility] Comment on above: Order Comment: No: D o not add to previous draw Performed By: #### 2 550, 54111, 15842, 03729 #### [facility] [address] [place] [address], [place] GFR/1.73 sq M predicted among blacks MDRD vol rate/area (S/P/Bld) mL/min/{1.73_m2} Normal >60 [facility] Comment on above: Order Comment: No: D o not add to previous draw Performed By: #### 2 5508, 24208, 48336, 16840 #### [facility] [address] [place] [address], [place] GFR/1.73 sq M predicted among non-blacks MDRD vol rate/area (S/P/Bld) mL/min/{1.73_m2} Normal >60 [facility] Comment on above: Order Comment: No: D o not add to previous draw Performed By: #### 2 5508, 60220, 04337, 71215 #### [facility] [address] [place] [address], [place] Glucose mass conc 239 mg/dL High 70-100 [facility] Comment on above: Order Comment: No: D o not add to previous draw Performed By: #### 2 550, 14077, 73962, 06196 #### [facility] [address] [place] [address], [facility] Potassium molar conc 3.6 mmol/L Normal 3.5-5.1 [facility] Comment on above: Order Comment: No: D o not add to previous draw Performed By: #### 2 5508, 58453, 58738, 31622 #### [facility] [address] [place] [address], [facility] Sodium molar conc 136 mmol/L Normal 136-145 [facility] Comment on above: Order Comment: No: D o not add to previous draw Performed By: #### 2 5508, 82129, 89659, 34159 #### [facility] [address] [place] [address], [facility] Urea nitrogen mass conc 20 mg/dL Normal 7-25 [facility] Comment on above: Order Comment: No: D o not add to previous draw Performed By: #### 2 5508, 55090, 36226, 81257 #### [facility] [address] [facility] [place] [address], [facility] CBC W/DIFFon 05-30-2018 ABS BASOPHILS 0.0 10*3/uL Normal 0.0-0.2 [facility] Comment on above: Order Comment: No: D o not add to previous draw Performed By: #### 2 5508, 17508, 48120, 08454 #### [facility] [address] [facility] [address] ABS IMM GRANS 0.2 10*3/uL Normal 0.0-0.2 [facility] Comment on above: Order Comment: No: D o not add to previous draw Performed By: #### 2 5508, 77715, 45399, 41731 #### [facility] [address] [place] [address], [facility] ABS NEUTROPHILS 2.5 10*3/uL Normal 1.6-7.6 [facility] Comment on above: Order Comment: No: D o not add to previous draw Performed By: #### 2 8, 08289, 30823, 71261 #### [facility] [address] [place] [address], [facility] Basophils #/vol (Bld) 0.5 % Normal 0.0-1.0 [facility] Comment on above: Order Comment: No: D o not add to previous draw Performed By: #### 2 8, 65362, 21836, 36830 #### [facility] [address] [place] [address], [facility] Eosinophils #/vol (Bld) 0.0 10*3/uL Normal 0.0-0.5 [facility] Comment on above: Order Comment: No: D o not add to previous draw Performed By: #### 2 5507, 71637, 57847, 03525 #### [facility] [address] [place] [address], [facility] Eosinophils/100 WBC (Bld) 0.0 % Normal 0.0-6.0 [facility] Comment on above: Order Comment: No: D o not add to previous draw Performed By: #### 2 5507, 84010, 69181, 77760 #### [facility] [address] [place] [address], [facility] Erythrocyte distribution width Ratio (RBC) 13.9 % Normal 11.5-15.0 [facility] Comment on above: Order Comment: No: D o not add to previous draw Performed By: #### 2 5508, 67628, 24777, 56771 #### [facility] [address] [place] [address], [facility] Hematocrit Volume Fraction (Bld) 34.3 % Low 36.0-45.0 [facility] Comment on above: Order Comment: No: D o not add to previous draw Performed By: #### 2 550, 55047, 32448, 92466 #### [facility] [address] Hemoglobin mass conc (Bld) 11.3 g/dL Low 12.0-15.0 [facility] Comment on above: Order Comment: No: D o not add to previous draw Performed By: #### 2 8, 34698, 25585, 88539 #### [facility] [address] [facility] [place] [address], [facility] IMMATURE GRANS 3.6 % High 0.0-1.0 [facility] Comment on above: Order Comment: No: D o not add to previous draw Performed By: #### 2 5507, , 29170, 80177 #### [facility] [address] [facility] [place] [address], [facility] Lymphocytes #/vol (Bld) 1.2 10*3/uL Normal 1.2-4.0 [facility] Comment on above: Order Comment: No: D o not add to previous draw Performed By: #### 2 5507, , 75287, 73400 #### [facility] [address] [facility] [place] [address], [facility] Lymphocytes/100 WBC (Bld) 29.0 % Normal 20.0-45.0 [facility] Comment on above: Order Comment: No: D o not add to previous draw Performed By: #### 2 5507, 96262, 16179, 06221 #### [facility] [address] [facility] [place] [address], [facility] MCH Entitic mass (RBC) 28.0 pg Normal 27.0-33.0 [facility] Comment on above: Order Comment: No: D o not add to previous draw Performed By: #### 2 5507, 44387, 41346, 99176 #### [facility] [address] [facility] [place] [id number], [facility] MCHC mass conc (RBC) 32.9 g/dL Normal 32.0-35.0 [facility] Comment on above: Order Comment: No: D o not add to previous draw Performed By: #### 2 5507, 71954, 34722, 70491 #### [facility] [address] MCV Entitic volume (RBC) 85.1 fL Normal 82.0-98.0 [facility] Comment on above: Order Comment: No: D o not add to previous draw Performed By: #### 2 8, 81620, 02679, 34260 #### [facility] [address] Monocytes #/vol (Bld) 0.3 10*3/uL Normal 0.1-1.0 [facility] Comment on above: Order Comment: No: D o not add to previous draw Performed By: #### 2 5507, 21353, 85115, 96713 #### [facility] [address] MONOS 6.9 % Normal 5.0-12.0 [facility] Comment on above: Order Comment: No: D o not add to previous draw Performed By: #### 2 5507, 38866, 70863, 69616 #### [facility] [address] Neutrophils/100 WBC (Bld) 60.0 % Normal 40.0-72.0 [facility] Comment on above: Order Comment: No: D o not add to previous draw Performed By: #### 2 5507, 40810, 39988, 95461 #### [facility] [address] Nucleated RBC/100 WBC Ratio (Bld) 0 % Normal 0-0 [facility] Comment on above: Order Comment: No: D o not add to previous draw Performed By: #### 2 5507, 46845, 14231, 04972 #### [facility] [address] [place] [address], [facility] PLAT CNT 250 10*3/uL Normal 150-400 [facility] Comment on above: Order Comment: No: D o not add to previous draw Performed By: #### 2 5508, 67800, 63777, 14658 #### [facility] [address] RBC #/vol (Bld) 4.03 10*6/uL Normal 3.80-5.00 [facility] Comment on above: Order Comment: No: D o not add to previous draw Performed By: #### 2 5508, 93751, 44085, 97268 #### [facility] [address] [place] [address], [facility] WBC #/vol (Bld) 4.20 10*3/uL Normal 4.00-10.60 [facility] Comment on above: Order Comment: No: D o not add to previous draw Performed By: #### 2 5508, 14284, 30526, 66764 #### [facility] [address] EEG Reporton 05-30-2018 EEG Report Name: Shabana Stallworth [facility] MR#: [id number] Age: 58 Physician: Colt Boggs M.D. Date: From 0630 hours on May 28, 2018, until 0630 hours on May 29, 2018 Lab#: [id number] Date of : 1960 Patient Type: I NEURODIAGNOSTIC SERVICES REPORT [address] [place] [phone] Board of the [place] [employer] Accredited retail loss prevention officer: Jesse Muir. EEG DURATION: 23:53:41. CLINICAL HISTORY: This is a 58-year-old white female who was found confused at work. She apparently could not remember her name or events of the day. Her stated that she had been sleeping more than the past four days. She had been complaining of fatigue and drove past the house. denies any facial droop or weakness for extremity deficits. PAST MEDICAL HISTORY: MEDICATIONS: Acetaminophen, acyclovir, ampicillin, ceftriaxone, etomidate, fentanyl citrate, rocuronium, vancomycin. OTHER PARAMETERS: EKG. ACTIVITIES: Stupor 100%. 1. Generalized intermittent rhythmic slow generalized and lateralized left hemisphere, 1-3 hertz, 20-70 microvolts seen in 50-60% of recording. 2. Continuous slow 2-6 hertz, 20-70 microvolts, generalized seen in 70%-80% of recording. 3. Sleep spindles 12-16 hertz, 20-70 microvolts, seen during sleep. 4. Vertex waves, 1 hertz, 20-70 microvolts, seen during sleep. 5. Stimulation touch, auditory, and pain stimuli, EEG reactivity. CLASSIFICATION: Abnormal III (stupor 10-20 scalp electrodes, anterior temporal electrodes, standard electrodes). 1. Continuous slow, generalized. 2. Intermittent rhythmic slow generalized and lateralized, left hemisphere. IMPRESSION: Continuous video EEG monitoring was reviewed from 0630 hours on May 28, 2018, until 0630 hours on May 29, 2018, and is suggestive of bilateral cortical dysfunction maximum in the left hemisphere. This EEG also shows moderate diffuse encephalopathy. No epileptiform discharges or EEG seizures were seen during this recording. There was no push button event. Electronically Signed by: Raghu Matson MD 06/02/2018 09:51 P Raghu Matson MD Date Dict: 05/29/2018/06:57 P/Raghu Matson MD Date Trans: 05/30/2018 05:46 A/luis e [id number] cc: Colt Boggs M.D. [address] [place] [phone] Normal [facility] MAGNESIUM BLOODon 05-30-2018 Magnesium mass conc 1.8 mg/dL Low 1.9-2.7 [facility] Comment on above: Order Comment: No: D o not add to previous draw Performed By: #### 2 5508, 79870, 35140, 04582 #### [facility] [address] [place] [address], [facility] PHOSPHORUS BLOODon 9 Phosphate mass conc 2.0 mg/dL Low 2.5-5.0 [facility] Comment on above: Order Comment: No: D o not add to previous draw Performed By: #### 2 5508, 04789, 77553, 19525 #### [facility] [address] [place] [address], [place] POC GLUCOSE LABon 05-30-2018 Glucose mass conc 297 mg/dL High 70-100 [facility] Comment on above: Performed By: #### 2 550, 12245, 93153, 58838 #### [facility] [address] [place] [address], [place] Glucose mass conc 176 mg/dL High 70-100 [facility] Comment on above: Performed By: #### 2 5508, 28617, 77075, 10070 #### [facility] [address] [place] [address], [place] BASIC METABOLIC PANELon 05-15 Calcium mass conc 8.7 mg/dL Normal 8.6-10.3 [facility] Comment on above: Order Comment: No: D o not add to previous draw Performed By: #### 2 5508, 32432, 29393, 15559 #### [facility] [address] [place] [address], [place] Chloride molar conc 103 mmol/L Normal 98-107 [facility] Comment on above: Order Comment: No: D o not add to previous draw Performed By: #### 2 5508, 36943, 02902, 25821 #### [facility] [address] [place] [address], [place] CO2 molar conc 26 mmol/L Normal 21-31 [facility] Comment on above: Order Comment: No: D o not add to previous draw Performed By: #### 2 5508, 92806, 54880, 02844 #### [facility] [address] [place] [address], [place] Creatinine mass conc 0.56 mg/dL Low 0.60-1.20 [facility] Comment on above: Order Comment: No: D o not add to previous draw Performed By: #### 2 5508, 50988, 74156, 82964 #### [facility] [address] [place] [address], [place] GFR/1.73 sq M predicted among blacks MDRD vol rate/area (S/P/Bld) mL/min/{1.73_m2} Normal >60 [facility] Comment on above: Order Comment: No: D o not add to previous draw Performed By: #### 2 5508, 97293, 43096, 76156 #### [facility] [address] [place] [address], [place] GFR/1.73 sq M predicted among non-blacks MDRD vol rate/area (S/P/Bld) mL/min/{1.73_m2} Normal >60 [facility] Comment on above: Order Comment: No: D o not add to previous draw Performed By: #### 2 5508, 03609, 85820, 47621 #### [facility] [address] [place] [address], [place] Glucose mass conc 263 mg/dL High 70-100 [facility] Comment on above: Order Comment: No: D o not add to previous draw Performed By: #### 2 5508, 10457, 38610, 36763 #### [facility] [address] [place] [address], [place] Potassium molar conc 4.1 mmol/L Normal 3.5-5.1 [facility] Comment on above: Order Comment: No: D o not add to previous draw Performed By: #### 2 5508, 79063, 69753, 10120 #### [facility] [address] [place] [address], [place] Sodium molar conc 135 mmol/L Low 136-145 [facility] Comment on above: Order Comment: No: D o not add to previous draw Performed By: #### 2 5508, 42092, 14684, 07049 #### [facility] [address] [place] [address], [facility] Urea nitrogen mass conc 20 mg/dL Normal 7-25 [facility] Comment on above: Order Comment: No: D o not add to previous draw Performed By: #### 2 5507, 63392, 87262, 21424 #### [facility] [address] [place] [address], [facility] CBC COMPLETE BLOOD COUNTon 0 - Erythrocyte distribution width Ratio (RBC) 13.7 % Normal 11.5-15.0 [facility] Comment on above: Order Comment: No: D o not add to previous draw Performed By: #### 2 5507, 19669, 68693, 57257 #### [facility] [address] [place] [address], [facility] Hematocrit Volume Fraction (Bld) 34.0 % Low 36.0-45.0 [facility] Comment on above: Order Comment: No: D o not add to previous draw Performed By: #### 2 5507, 00308, 47497, 14616 #### [facility] [address] [place] [address], [facility] Hemoglobin mass conc (Bld) 11.2 g/dL Low 12.0-15.0 [facility] Comment on above: Order Comment: No: D o not add to previous draw Performed By: #### 2 550, 41850, 29163, 88833 #### [facility] [address] [place] [address], [place] MCH Entitic mass (RBC) 27.6 pg Normal 27.0-33.0 [facility] Comment on above: Order Comment: No: D o not add to previous draw Performed By: #### 2 550, 30429, 43876, 44192 #### [facility] [address] [place] [address], [facility] MCHC mass conc (RBC) 32.9 g/dL Normal 32.0-35.0 [facility] Comment on above: Order Comment: No: D o not add to previous draw Performed By: #### 2 5508, 17770, 36901, 70128 #### [facility] [address] [place] [address], [facility] MCV Entitic volume (RBC) 83.7 fL Normal 82.0-98.0 [facility] Comment on above: Order Comment: No: D o not add to previous draw Performed By: #### 2 8, 98998, 72773, 96785 #### [facility] [address] [place] [address], [facility] Nucleated RBC/100 WBC Ratio (Bld) 0 % Normal 0-0 [facility] Comment on above: Order Comment: No: D o not add to previous draw Performed By: #### 2 5507, 19748, 14909, 80956 #### [facility] [address] [place] [address], [facility] PLAT CNT 237 10*3/uL Normal 150-400 [facility] Comment on above: Order Comment: No: D o not add to previous draw Performed By: #### 2 5507, 43030, 54784, 20776 #### [facility] [address] [place] [address], [facility] RBC #/vol (Bld) 4.06 10*6/uL Normal 3.80-5.00 [facility] Comment on above: Order Comment: No: D o not add to previous draw Performed By: #### 2 5508, 12077, 19665, 96785 #### [facility] [address] [place] [address], [facility] WBC #/vol (Bld) 3.83 10*3/uL Low 4.00-10.60 [facility] Comment on above: Order Comment: No: D o not add to previous draw Performed By: #### 2 550, 26477, 39401, 81342 #### [facility] [address] [place], [place] [address] EEG Reporton 05-29-2018 EEG Report Name: Shabana Stallworth [facility] MR#: [id number] Age: 58 Physician: Colt Boggs M.D. Date: From 0630 hours on May 27, 2018, until 0630 hours on May 28, 2018. Lab#: Date of : 1960 Patient Type: I NEURODIAGNOSTIC SERVICES REPORT [address], [place] [address] Board of the [place] [employer] Accredited retail loss prevention officer: Jesse Muir. EEG DURATION: 23:57 and 28 seconds. CLINICAL HISTORY: This is a 58-year-old white female who was found confused at work. She apparently could not remember her name or events of the day. Her stated that she had been sleeping more the past 4 days. She had been complaining of fatigue and drove past the house. denies any facial droop or weakness lower extremity deficits. PAST MEDICAL HISTORY: MEDICATIONS: Acetaminophen, acyclovir, ampicillin, ceftriaxone, etomidate, fentanyl citrate, rocuronium, and vancomycin. OTHER PARAMETERS: EKG. ACTIVITIES: Stupor, 100%. 1. Generalized intermittent rhythmic slow generalized and lateralized left hemisphere, 1-3 hertz, 20-70 microvolts seen in 50-60% of recording. 2. Posterior background, 9-10 hertz, 20-70 microvolts seen in the posterior head region. It is waxing and waning. 3. Sleep spindles 12-16 hertz, 20-70 microvolts, seen during sleep. 4. Vertex waves, 1 hertz, 20-70 microvolts, seen during sleep. 5. Stimulation touch, auditory, and pain stimuli, EEG reactivity. CLASSIFICATION: Abnormal III (stupor 10-20 scalp electrodes, anterior temporal electrodes, standard electrodes). 1. Intermittent rhythmic slow generalized. IMPRESSION: Continuous video EEG monitoring was reviewed from 0630 hours on May 27, 2018, until 0630 hours on May 28, 2018, and is suggestive of bilateral cortical dysfunction maximum in the left hemisphere. This EEG also shows moderate diffuse encephalopathy. No epileptiform discharges or EEG seizures were seen during this recording. There was no push button event. Electronically Signed by: Raghu Matson MD 06/02/2018 09:51 P Raghu Matson MD Date Dict: 05/28/2018/12:01 P/Raghu Matson MD Date Trans: 05/29/2018 08:51 A/luis e [id number] cc: Colt Boggs M.D. [address] [place] [address] [facility] [id number] Normal [facility] MAGNESIUM BLOODon 05-29-2018 Magnesium mass conc 1.9 mg/dL Normal 1.9-2.7 [facility] Comment on above: Order Comment: No: D o not add to previous draw Performed By: #### 2 5508, 25664, 98398, 88287 #### [facility] [address] [place] [address], [facility] PHOSPHORUS BLOODon 9 Phosphate mass conc 2.0 mg/dL Low 2.5-5.0 [facility] Comment on above: Order Comment: No: D o not add to previous draw Performed By: #### 2 5508, 07679, 44178, 36923 #### [facility] [address] [place] [address], [facility] BASIC METABOLIC PANELon 05-15 Calcium mass conc 8.5 mg/dL Low 8.6-10.3 [facility] Comment on above: Order Comment: No: D o not add to previous draw Performed By: #### 2 5508, 29424, 91472, 05271 #### [facility] [address] [place] [address], [facility] Chloride molar conc 107 mmol/L Normal 98-107 [facility] Comment on above: Order Comment: No: D o not add to previous draw Performed By: #### 2 5508, 06085, 15649, 11717 #### [facility] [address] [place] [address], [place] CO2 molar conc 22 mmol/L Normal 21-31 [facility] Comment on above: Order Comment: No: D o not add to previous draw Performed By: #### 2 5508, 56204, 73680, 12954 #### [facility] [address] [place] [address], [place] Creatinine mass conc 0.54 mg/dL Low 0.60-1.20 [facility] Comment on above: Order Comment: No: D o not add to previous draw Performed By: #### 2 5507, 22184, 13596, 60367 #### [facility] [address] [place] [address], [place] GFR/1.73 sq M predicted among blacks MDRD vol rate/area (S/P/Bld) mL/min/{1.73_m2} Normal >60 [facility] Comment on above: Order Comment: No: D o not add to previous draw Performed By: #### 2 550, 86455, 85892, 48568 #### [facility] [address] [place] [address], [place] GFR/1.73 sq M predicted among non-blacks MDRD vol rate/area (S/P/Bld) mL/min/{1.73_m2} Normal >60 [facility] Comment on above: Order Comment: No: D o not add to previous draw Performed By: #### 2 550, 71703, 92865, 15960 #### [facility] [address] [place] [address], [place] Glucose mass conc 161 mg/dL High 70-100 [facility] Comment on above: Order Comment: No: D o not add to previous draw Performed By: #### 2 550, 12210, 51043, 51705 #### [facility] [address] [place] [address], [place] Potassium molar conc 3.9 mmol/L Normal 3.5-5.1 [facility] Comment on above: Order Comment: No: D o not add to previous draw Performed By: #### 2 5508, 33174, 78283, 28096 #### [facility] [address] [place] [address], [facility] Sodium molar conc 137 mmol/L Normal 136-145 [facility] Comment on above: Order Comment: No: D o not add to previous draw Performed By: #### 2 5508, 84263, 95309, 80559 #### [facility] [address] [place] [address], [facility] Urea nitrogen mass conc 15 mg/dL Normal 7-25 [facility] Comment on above: Order Comment: No: D o not add to previous draw Performed By: #### 2 550, 80309, 86185, 61591 #### [facility] [address] [place] [address], [facility] CBC COMPLETE BLOOD COUNTon 0 - Erythrocyte distribution width Ratio (RBC) 13.9 % Normal 11.5-15.0 [facility] Comment on above: Order Comment: No: D o not add to previous draw Performed By: #### 2 5508, 22827, 86528, 08881 #### [facility] [address] [place] [address], [facility] Hematocrit Volume Fraction (Bld) 32.2 % Low 36.0-45.0 [facility] Comment on above: Order Comment: No: D o not add to previous draw Performed By: #### 2 5508, 42243, 39946, 61776 #### [facility] [address] [place] [address], [facility] Hemoglobin mass conc (Bld) 10.4 g/dL Low 12.0-15.0 [facility] Comment on above: Order Comment: No: D o not add to previous draw Performed By: #### 2 550, 31816, 11265, 50621 #### [facility] [address] MCH Entitic mass (RBC) 27.6 pg Normal 27.0-33.0 [facility] Comment on above: Order Comment: No: D o not add to previous draw Performed By: #### 2 5508, 13813, 57075, 27771 #### [facility] [address] MCHC mass conc (RBC) 32.3 g/dL Normal 32.0-35.0 [facility] Comment on above: Order Comment: No: D o not add to previous draw Performed By: #### 2 8, 65174, 49890, 85759 #### [facility] [address] MCV Entitic volume (RBC) 85.4 fL Normal 82.0-98.0 [facility] Comment on above: Order Comment: No: D o not add to previous draw Performed By: #### 2 550, 26902, 09030, 03140 #### [facility] [address] [facility] [address] Nucleated RBC/100 WBC Ratio (Bld) 0 % Normal 0-0 [facility] Comment on above: Order Comment: No: D o not add to previous draw Performed By: #### 2 5508, 54433, 33277, 27647 #### [facility] [address] [facility] [address], [facility] PLAT CNT 241 10*3/uL Normal 150-400 [facility] Comment on above: Order Comment: No: D o not add to previous draw Performed By: #### 2 5508, 16152, 74925, 62188 #### [facility] [address] [place] [address], [facility] RBC #/vol (Bld) 3.77 10*6/uL Low 3.80-5.00 [facility] Comment on above: Order Comment: No: D o not add to previous draw Performed By: #### 2 5508, 10055, 02094, 60136 #### [facility] [address] [facility] [address] WBC #/vol (Bld) 3.77 10*3/uL Low 4.00-10.60 [facility] Comment on above: Order Comment: No: D o not add to previous draw Performed By: #### 2 5508, 98762, 68006, 36268 #### [facility] [address] [facility] [address] CORTISOLon 05-28-2018 CORTISOL 2.6 mcg/dL Normal [facility] Comment on above: Order Comment: No: D o not add to previous draw Result Comment: Refe rence Range: AM 6.0-23.0 mcg/dL PM 0.0-9.0 mcg/dL Performed By: #### 2 5508, 17035, 68330, 38196 #### [facility] [address] [facility] [address] MAGNESIUM BLOODon 05-28-2018 Magnesium mass conc 1.8 mg/dL Low 1.9-2.7 [facility] Comment on above: Order Comment: No: D o not add to previous draw Performed By: #### 2 5508, 49387, 73895, 56919 #### [facility] [address] [facility] [place] [address], [facility] PHOSPHORUS BLOODon 9 Phosphate mass conc 3.0 mg/dL Normal 2.5-5.0 [facility] Comment on above: Order Comment: No: D o not add to previous draw Performed By: #### 2 5508, 41946, 44619, 39137 #### [facility] [address] [facility] [address] [place]GLOBULIN [place] [id number] Thyroglobulin Ab Qn [IU]/mL Normal 0.0-4.0 [facility] Comment on above: Order Comment: No: D o not add to previous draw Result Comment: INTE RPRETIVE INFORMATION: Thyroglobulin Antibody A value of 4.0 IU/mL or less indicates a negative result for thyroglobulin antibodies. The Thyroglobulin Antibody assay is being performed using the [employer] DxI method. Performed by [employer], [facility] [place] [address] [email or web address], Jack Torres MD - Lab. Director ARTERIAL BLOOD GAS WITH ICAo n 05-27-2018 BASE EXCESS -5 mmol/L Low -2-2 [facility] Comment on above: Performed By: #### 2 5508, 81229, 57089, 38469 #### [facility] [address] DELIVERY SYSTEMS MV Normal [facility] Comment on above: Performed By: #### 2 5508, 22086, 60038, 21336 #### [facility] [address] [facility] [address], [facility] FIO2 40 % Normal 21-100 [facility] Comment on above: Performed By: #### 2 5507, 91776, 88039, 23026 #### [facility] [address] [facility] [address], [facility] HCO3 molar conc (Bld) 21 mmol/L Low 23-27 [facility] Comment on above: Performed By: #### 2 5508, 12727, 28319, 70421 #### [facility] [address] [place] [address], [facility] IONIZED CALCIUM 1.25 mmol/L Normal 1.13-1.32 [facility] Comment on above: Performed By: #### 2 5508, 35952, 08825, 29841 #### [facility] [address] [place] [address], [facility] MIN VOLUME 6.1 Normal [facility] Comment on above: Performed By: #### 2 5508, 28226, 14328, 56401 #### [facility] [address] [place] [address], [facility] MODALITY AC Normal [facility] Comment on above: Performed By: #### 2 8, 30739, 59884, 25131 #### [facility] [address] [place] [address], [facility] Oxygen ppres (Bld) 135 mm[Hg] Critically high 75-100 T [facility] Comment on above: Performed By: #### 2 5507, 87831, 88793, 46380 #### [facility] [address] [place] [address], [facility] Oxygen saturation in Blood 95.5 % Normal 94.0-97.0 [facility] Comment on above: Performed By: #### 2 5507, 62077, 55823, 07929 #### [facility] [address] [place] [address], [facility] PCO2 43 mmHg Normal 35-45 [facility] Comment on above: Performed By: #### 2 5507, 25302, 67274, 42705 #### [facility] [address] [place] [id number], [facility] PEEP 8.0 CMH20 Normal [facility] Comment on above: Performed By: #### 2 5507, 30293, 07612, 64914 #### [facility] [address] [place] [address], [facility] pH (Bld) 7.30 [pH] Low 7.35-7.45 [facility] Comment on above: Performed By: #### 2 8, 58053, 38769, 28376 #### [facility] [address] [place] [address], [facility] TIDAL VOLUME (VT) CC 400 Normal [facility] Comment on above: Performed By: #### 2 5507, 54243, 13196, 67308 #### [facility] [address] [place] [address], [place] BASIC METABOLIC PANELon 05-15 Calcium mass conc 8.1 mg/dL Low 8.6-10.3 [facility] Comment on above: Order Comment: No: D o not add to previous draw Performed By: #### 2 5508, 27149, 07286, 61085 #### [facility] [address] [place] [address], [place] Chloride molar conc 109 mmol/L High 98-107 [facility] Comment on above: Order Comment: No: D o not add to previous draw Performed By: #### 2 5508, 83479, 25503, 29921 #### [facility] [address] [place] [address], [place] CO2 molar conc 23 mmol/L Normal 21-31 [facility] Comment on above: Order Comment: No: D o not add to previous draw Performed By: #### 2 5508, 46066, 19452, 25729 #### [facility] [address] [place] [address], [place] Creatinine mass conc 0.63 mg/dL Normal 0.60-1.20 [facility] Comment on above: Order Comment: No: D o not add to previous draw Performed By: #### 2 5508, 24361, 85282, 86264 #### [facility] [address] [place] [address], [place] GFR/1.73 sq M predicted among blacks MDRD vol rate/area (S/P/Bld) mL/min/{1.73_m2} Normal >60 [facility] Comment on above: Order Comment: No: D o not add to previous draw Performed By: #### 2 5508, 28128, 21296, 14003 #### [facility] [address] [place] [address], [place] GFR/1.73 sq M predicted among non-blacks MDRD vol rate/area (S/P/Bld) mL/min/{1.73_m2} Normal >60 [facility] Comment on above: Order Comment: No: D o not add to previous draw Performed By: #### 2 5508, 03575, 78510, 62064 #### [facility] [address] [place] [address], [place] Glucose mass conc 87 mg/dL Normal 70-100 [facility] Comment on above: Order Comment: No: D o not add to previous draw Performed By: #### 2 5508, 97488, 52248, 93660 #### [facility] [address] [place] [address], [place] Potassium molar conc 3.7 mmol/L Normal 3.5-5.1 [facility] Comment on above: Order Comment: No: D o not add to previous draw Performed By: #### 2 5508, 14954, 69900, 39805 #### [facility] [address] [place] [address], [place] Sodium molar conc 140 mmol/L Normal 136-145 [facility] Comment on above: Order Comment: No: D o not add to previous draw Performed By: #### 2 5508, 72959, 19563, 11850 #### [facility] [address] [place] [address], [place] Urea nitrogen mass conc 8 mg/dL Normal 7-25 [facility] Comment on above: Order Comment: No: D o not add to previous draw Performed By: #### 2 5508, 90001, 31964, 76755 #### [facility] [address] [place] [address], [place] CBC COMPLETE BLOOD COUNTon 0 2- Erythrocyte distribution width Ratio (RBC) 14.1 % Normal 11.5-15.0 [facility] Comment on above: Order Comment: No: D o not add to previous draw Performed By: #### 2 5508, 07526, 44650, 78528 #### [facility] [address] [place] [address], [place] Hematocrit Volume Fraction (Bld) 32.7 % Low 36.0-45.0 [facility] Comment on above: Order Comment: No: D o not add to previous draw Performed By: #### 2 5507, 16766, 36362, 58573 #### [facility] [address] [place] [address], [facility] Hemoglobin mass conc (Bld) 10.6 g/dL Low 12.0-15.0 [facility] Comment on above: Order Comment: No: D o not add to previous draw Performed By: #### 2 5507, 48412, 23004, 28939 #### [facility] [address] [place] [address], [facility] MCH Entitic mass (RBC) 28.0 pg Normal 27.0-33.0 [facility] Comment on above: Order Comment: No: D o not add to previous draw Performed By: #### 2 5507, 78056, 21672, 79482 #### [facility] [address] [place] [address], [facility] MCHC mass conc (RBC) 32.4 g/dL Normal 32.0-35.0 [facility] Comment on above: Order Comment: No: D o not add to previous draw Performed By: #### 2 5507, 29987, 94187, 61313 #### [facility] [address] [place] [address], [facility] MCV Entitic volume (RBC) 86.5 fL Normal 82.0-98.0 [facility] Comment on above: Order Comment: No: D o not add to previous draw Performed By: #### 2 5507, 58133, 14083, 64549 #### [facility] [address] [place] [address], [facility] Nucleated RBC/100 WBC Ratio (Bld) 0 % Normal 0-0 [facility] Comment on above: Order Comment: No: D o not add to previous draw Performed By: #### 2 5507, 72928, 75252, 77447 #### [facility] [address] [place] [address], [facility] PLAT CNT 207 10*3/uL Normal 150-400 [facility] Comment on above: Order Comment: No: D o not add to previous draw Performed By: #### 2 5508, 28935, 25834, 33532 #### [facility] [address] [place] [address], [facility] RBC #/vol (Bld) 3.78 10*6/uL Low 3.80-5.00 [facility] Comment on above: Order Comment: No: D o not add to previous draw Performed By: #### 2 5508, 81689, 98578, 19491 #### [facility] [address] [place] [address], [facility] WBC #/vol (Bld) 3.84 10*3/uL Low 4.00-10.60 [facility] Comment on above: Order Comment: No: D o not add to previous draw Performed By: #### 2 5508, 43865, 08278, 57242 #### [facility] [address] EEG Reporton 05-27-2018 EEG Report Name: Shabana Stallworth [facility] MR#: [id number] Age: 58 Physician: Colt Boggs M.D. Date: From 6:30 on May 26, 2018, until 6:30 hours on May 27, 2018 Lab#: Date of : 1960 Patient Type: I NEURODIAGNOSTIC SERVICES REPORT [address] [place] [id number] Board of the [place] [employer] Accredited retail loss prevention officer: Jesse Muir. EEG DURATION: 23:57 and 13 seconds. CLINICAL HISTORY: This is a 58-year-old white female, brought in after her co-worker found her confused at work. She apparently could not remember her name or events of the day. Her stated that she had been sleeping more the past 4 days. She had been complaining of fatigue and drove past the house. denies any facial droop or weakness for extremity deficits. PAST MEDICAL HISTORY: MEDICATIONS: Acetaminophen, acyclovir, ampicillin, ceftriaxone, etomidate, fentanyl citrate, rocuronium, vancomycin. OTHER PARAMETERS: EKG. ACTIVITIES: Stupor, 100%. 1. Generalized intermittent rhythmic slow generalized and lateralized left hemisphere, 1-3 hertz, 20-70 microvolts, seen in 50-60% of recording. 2. Posterior background of 9-10 hertz, 20-70 microvolts, seen in the posterior head region. It is waxing and waning. 3. Sleep spindles, 12-16 hertz, 20-70 microvolts, seen during sleep. 4. Vertex waves, 1 hertz, 20-70 microvolts, seen during sleep. 5. Stimulation touch, auditory, and pain stimuli EEG reactivity. CLASSIFICATION: Abnormal III (lethargy 10-20 scalp electrodes, anterior temporal electrodes, standard electrodes). 1. Intermittent rhythmic slow generalized, and lateralized, left hemisphere. IMPRESSION: Continuous video EEG monitoring was reviewed from 6:30 on May 25, 2018 until 6:30 on May 26, 2018 and is suggestive of bilateral cortical dysfunction, maximum in the left hemisphere. This EEG also shows moderate diffuse encephalopathy. No epileptiform discharges or EEG seizures were seen during this recording. There was no push button event. Electronically Signed by: Raghu Matson MD 06/02/2018 09:51 P Raghu Matson MD Date Dict: 05/27/2018/09:35 A/Raghu Matson MD Date Trans: 05/27/2018 08:32 P/luis e [id number] cc: Colt Boggs M.D. [address] [place] [id number] Normal [facility] EEG Report Name: Shabana Stallworth [facility] MR#: [id number] Age: 58 Physician: Colt Boggs M.D. Date: From 0630 hours on May 25, 2018, until 0630 hours on May 26, 2018 Lab#: Day 3 Date of : 1960 Patient Type: I NEURODIAGNOSTIC SERVICES REPORT [address] [place], [place] [address] Board of the [place] [employer] Accredited retail loss prevention officer: Jesse Muir. EEG DURATION: 23:57:32. CLINICAL HISTORY: This is a 58-year-old white female brought in after her co-worker found her confused at work. She apparently could not remember her name or events of the day. Her stated that she had been sleeping more than the past four days. She had been complaining of fatigue and drove past the house. denies any facial droop or weakness or extremity deficits. PAST MEDICAL HISTORY: MEDICATIONS: Acetaminophen, acyclovir, ampicillin, ceftriaxone, etomidate, fentanyl citrate, rocuronium, and vancomycin. OTHER PARAMETERS: EKG. ACTIVITIES: Stupor, 100%. 1. Generalized intermittent rhythmic slow 1 to 2 hertz, 20 to 70 microvolts, seen in 60 % to 70% of recording. 2. Posterior background, 9 to 10 hertz, 20 to 70 microvolts seen in the posterior head region. It is waxing and waning. 3. Sleep spindles, 12 to 16 hertz, 20 to 70 microvolts seen during sleep for stimulation, touch, auditory, and pain stimuli for EEG reactivity. CLASSIFICATION: Abnormal II (lethargy 10 to 20 scalp electrodes, anterior temporal electrodes, standard electrodes). 1. Intermittent rhythmic slow, generalized. IMPRESSION: Continuous video EEG monitoring was reviewed from 0630 hours on May 25, 2018, until 0630 hours on May 26, 2018, and is suggestive of moderate diffuse encephalopathy. No epileptiform discharges or EEG seizures were seen during this recording. There was no push button event. Electronically Signed by: Raghu Matson MD 06/02/2018 09:51 P Raghu Matson MD Date Dict: 05/26/2018/08:56 A/Raghu Matson MD Date Trans: 05/27/2018 07:09 Dipak/luis e [id number] cc: Colt Boggs M.D. [facility] [address] [facility] [phone] Normal The [facility] MAGNESIUM BLOODon 05-27-2018 Magnesium mass conc 1.7 mg/dL Low 1.9-2.7 [facility] Comment on above: Order Comment: No: D o not add to previous draw Performed By: #### 2 5508, 07219, 86661, 82328 #### [facility] [address] [place] [address], [facility] PHOSPHORUS BLOODon 9 Phosphate mass conc 3.0 mg/dL Normal 2.5-5.0 [facility] Comment on above: Order Comment: No: D o not add to previous draw Performed By: #### 2 5508, 25696, 72578, 23621 #### [facility] [address] [place] [address], [facility] ARTERIAL BLOOD GAS WITH ICAo n 05-26-2018 BASE EXCESS -3 mmol/L Low -2-2 [facility] Comment on above: Performed By: #### 8 5123 #### [facility] [address] [place] [address], [facility] DELIVERY SYSTEMS MV Normal [facility] Comment on above: Performed By: #### 8 5123 #### [facility] [address] [place] [address], [place] FIO2 40 % Normal 21-100 [facility] Comment on above: Performed By: #### 8 5123 #### [facility] [address] [place] [address], [place] HCO3 molar conc (Bld) 22 mmol/L Low 23-27 The [facility] [facility] Comment on above: Performed By: #### 8 [id number] #### [facility] [address] [place] [address], [place] IONIZED CALCIUM 1.19 mmol/L Normal 1.13-1.32 [facility] Comment on above: Performed By: #### 8 [id number] #### [facility] [address] [place] [address], [facility] MIN VOLUME 6.1 Normal [facility] Comment on above: Performed By: #### 8 [id number] #### [facility] [address] [place] [address], [place] MODALITY AC Normal [facility] Comment on above: Performed By: #### 8 [id number] #### [facility] [address] [place] [address], [facility] Oxygen ppres (Bld) 162 mm[Hg] Critically high 75-100 T [facility] Comment on above: Performed By: #### 8 [id number] #### [facility] [address] [place] [address], [facility] Oxygen saturation in Blood 96.4 % Normal 94.0-97.0 [facility] Comment on above: Performed By: #### 8 [id number] #### [facility] [address] [place] [address], [facility] PCO2 40 mmHg Normal 35-45 [facility] Comment on above: Performed By: #### 8 [id number] #### [facility] [address] [place] [address], [facility] PEEP 8.0 CMH20 Normal [facility] Comment on above: Performed By: #### 8 [id number] #### [facility] [address] [place] [address], [facility] pH (Bld) 7.35 [pH] Normal 7.35-7.45 [facility] Comment on above: Performed By: #### 8 [id number] #### [facility] [address] [place] [address], [facility] TIDAL VOLUME (VT) CC 400 Normal [facility] Comment on above: Performed By: #### 8 [id number] #### [facility] [address] [place] [address], [facility] BASIC METABOLIC PANELon 05-15 Calcium mass conc 7.8 mg/dL Low 8.6-10.3 [facility] Comment on above: Order Comment: No: D o not add to previous draw Performed By: #### 8 [id number] #### [facility] [address] [place] [address], [place] Chloride molar conc 110 mmol/L High 98-107 [facility] Comment on above: Order Comment: No: D o not add to previous draw Performed By: #### 8 [id number] #### [facility] [address] [place] [address], [place] CO2 molar conc 22 mmol/L Normal 21-31 [facility] Comment on above: Order Comment: No: D o not add to previous draw Performed By: #### 8 [id number] #### [facility] [address] [place] [address], [place] Creatinine mass conc 0.60 mg/dL Normal 0.60-1.20 [facility] Comment on above: Order Comment: No: D o not add to previous draw Performed By: #### 8 [id number] #### [facility] [address] [place] [address], [place] GFR/1.73 sq M predicted among blacks MDRD vol rate/area (S/P/Bld) mL/min/{1.73_m2} Normal >60 [facility] Comment on above: Order Comment: No: D o not add to previous draw Performed By: #### 8 [id number] #### [facility] [address] [place] [address], [place] GFR/1.73 sq M predicted among non-blacks MDRD vol rate/area (S/P/Bld) mL/min/{1.73_m2} Normal >60 [facility] Comment on above: Order Comment: No: D o not add to previous draw Performed By: #### 8 [id number] #### [facility] [address] [place] [address], [facility] Glucose mass conc 85 mg/dL Normal 70-100 [facility] Comment on above: Order Comment: No: D o not add to previous draw Performed By: #### 8 [id number] #### [facility] [address] [place] [id number], [facility] Potassium molar conc 3.8 mmol/L Normal 3.5-5.1 [facility] Comment on above: Order Comment: No: D o not add to previous draw Performed By: #### 8 [id number] #### [facility] [address] [place] [address], [facility] Sodium molar conc 141 mmol/L Normal 136-145 [facility] Comment on above: Order Comment: No: D o not add to previous draw Performed By: #### 8 [id number] #### [facility] [address] [place] [address], [facility] Urea nitrogen mass conc 7 mg/dL Normal 7-25 [facility] Comment on above: Order Comment: No: D o not add to previous draw Performed By: #### 8 [id number] #### [facility] [address] [place] [address], [facility] CBC W/DIFFon 05-26-2018 ABS BASOPHILS 0.0 10*3/uL Normal 0.0-0.2 [facility] Comment on above: Order Comment: No: D o not add to previous draw Performed By: #### 8 [id number] #### [facility] [address] [place] [address], [facility] ABS IMM GRANS 0.0 10*3/uL Normal 0.0-0.2 [facility] Comment on above: Order Comment: No: D o not add to previous draw Performed By: #### 8 [id number] #### [facility] [address] [place] [address], [facility] ABS NEUTROPHILS 1.9 10*3/uL Normal 1.6-7.6 [facility] Comment on above: Order Comment: No: D o not add to previous draw Performed By: #### 8 [id number] #### [facility] [address] [place] [address], [facility] Basophils #/vol (Bld) 1.2 % High 0.0-1.0 [facility] Comment on above: Order Comment: No: D o not add to previous draw Performed By: #### 8 [id number] #### [facility] [address] [place] [address], [facility] Eosinophils #/vol (Bld) 0.1 10*3/uL Normal 0.0-0.5 [facility] Comment on above: Order Comment: No: D o not add to previous draw Performed By: #### 8 [id number] #### [facility] [address] [place] [address], [facility] Eosinophils/100 WBC (Bld) 4.0 % Normal 0.0-6.0 [facility] Comment on above: Order Comment: No: D o not add to previous draw Performed By: #### 8 [id number] #### [facility] [address] [place] [address], [facility] Erythrocyte distribution width Ratio (RBC) 14.6 % Normal 11.5-15.0 [facility] Comment on above: Order Comment: No: D o not add to previous draw Performed By: #### 8 [id number] #### [facility] [address] [place] [address], [facility] Hematocrit Volume Fraction (Bld) 35.2 % Low 36.0-45.0 [facility] Comment on above: Order Comment: No: D o not add to previous draw Performed By: #### 8 [id number] #### [facility] [address] [place] [address], [facility] Hemoglobin mass conc (Bld) 10.9 g/dL Low 12.0-15.0 [facility] Comment on above: Order Comment: No: D o not add to previous draw Performed By: #### 8 [id number] #### [facility] [address] [place] [address], [facility] IMMATURE GRANS 0.6 % Normal 0.0-1.0 [facility] Comment on above: Order Comment: No: D o not add to previous draw Performed By: #### 8 [id number] #### [facility] [address] [place] [address], [facility] Lymphocytes #/vol (Bld) 1.0 10*3/uL Low 1.2-4.0 [facility] Comment on above: Order Comment: No: D o not add to previous draw Performed By: #### 8 [id number] #### [facility] [address] Lymphocytes/100 WBC (Bld) 29.3 % Normal 20.0-45.0 [facility] Comment on above: Order Comment: No: D o not add to previous draw Performed By: #### 8 [id number] #### [facility] [address] [facility] [address] MCH Entitic mass (RBC) 27.8 pg Normal 27.0-33.0 [facility] Comment on above: Order Comment: No: D o not add to previous draw Performed By: #### 8 [id number] #### [facility] [address] [facility] [place] [address], [facility] MCHC mass conc (RBC) 31.0 g/dL Low 32.0-35.0 [facility] Comment on above: Order Comment: No: D o not add to previous draw Performed By: #### 8 [id number] #### [facility] [address] [place] [address], [facility] MCV Entitic volume (RBC) 89.8 fL Normal 82.0-98.0 [facility] Comment on above: Order Comment: No: D o not add to previous draw Performed By: #### 8 [id number] #### [facility] [address] [place] [address], [facility] Monocytes #/vol (Bld) 0.2 10*3/uL Normal 0.1-1.0 [facility] Comment on above: Order Comment: No: D o not add to previous draw Performed By: #### 8 [id number] #### [facility] [address] [place] [address], [facility] MONOS 7.0 % Normal 5.0-12.0 [facility] Comment on above: Order Comment: No: D o not add to previous draw Performed By: #### 8 [id number] #### [facility] [address] [place] [address], [facility] Neutrophils/100 WBC (Bld) 57.9 % Normal 40.0-72.0 [facility] Comment on above: Order Comment: No: D o not add to previous draw Performed By: #### 8 [id number] #### [facility] [address] [place] [id number], [facility] Nucleated RBC/100 WBC Ratio (Bld) 0 % Normal 0-0 [facility] Comment on above: Order Comment: No: D o not add to previous draw Performed By: #### 8 [id number] #### [facility] [address] [place] [address], [facility] PLAT CNT 175 10*3/uL Normal 150-400 [facility] Comment on above: Order Comment: No: D o not add to previous draw Performed By: #### 8 5123 #### [facility] [address] [place] [address], [facility] RBC #/vol (Bld) 3.92 10*6/uL Normal 3.80-5.00 [facility] Comment on above: Order Comment: No: D o not add to previous draw Performed By: #### 8 [id number] #### [facility] [address] WBC #/vol (Bld) 3.28 10*3/uL Low 4.00-10.60 [facility] Comment on above: Order Comment: No: D o not add to previous draw Performed By: #### 8 [id number] #### [facility] [address] EEG Reporton 05-26-2018 EEG Report Name: Shbaana Stallworth [facility] MR#: [id number] Age: 58 Physician: Colt Boggs M.D. Date: 05/24/2018, Day #2. Lab#: Date of : 1960 Patient Type: I NEURODIAGNOSTIC SERVICES REPORT [place] [address] Board of the [place] [employer] Accredited Laboratory STUDY: Clinical Neurophysiology Laboratory Report -- Routine EEG. DATE/TIME: From 0630 hours on May 24, 2018, until 0630 hours on May 25, 2018. TECHNOLOGIST: Jesse Muir. EEG DURATION: 23:49:45. CLINICAL HISTORY: This is a 58-year-old white female, brought in after her co-worker found her confused at work. She apparently could not remember her name or events of the day. Her stated that she had been sleeping more for the past 4 days. She had been complaining of fatigue and drove past the house. denies any facial droop or weakness or extremity deficits. PAST MEDICAL HISTORY: MEDICATIONS: Acetaminophen, acyclovir, ampicillin, ceftriaxone, etomidate, fentanyl citrate, rocuronium, and vancomycin. OTHER PARAMETERS: EKG. ACTIVITIES: Stupor, 100%. 1. The patient has continuous slow generalized 2-4 hertz, 20-70 microvolts seen in 80% of recording. 2. Generalized intermittent rhythmic slow 1-2 hertz, 20-70 microvolts, seen in 20% of recording. 3. Beta waves at times superimposed on continuous generalized slow frequently seen. 4. Sleep spindles 12-16 hertz seen in the frontal central region, they are symmetrical. 5. Stimulation touch, auditory and pain stimuli for EEG reactivity. 6. Sharp transients were seen at right frontal F4 region 1-2 times in 3 hours. CLASSIFICATION: Abnormal III (stupor 10-20 scalp electrodes, anterior temporal electrodes, standard electrodes). 1. Continuous slow, generalized. 2. Intermittent rhythmic slow, generalized. IMPRESSION: Continuous video EEG monitoring was reviewed from 0630 hours on May 24, 2018, until 0630 hours on May 25, 2018, and is suggestive of [id number] diffuse encephalopathy. No clear epileptiform discharges or EEG seizures were seen during this recording. There was no push button event. Electronically Signed by: Raghu Matson MD 06/02/2018 09:51 P Raghu Matson MD Date Dict: 05/25/2018/09:23 Dipak/Raghu Matson MD Date Trans: 05/26/2018 07:34 Rossy [id number] cc: Colt Boggs M.D. [address] [place] [id number] Normal [facility] MAGNESIUM BLOODon 05-26-2018 Magnesium mass conc 1.9 mg/dL Normal 1.9-2.7 [facility] Comment on above: Order Comment: No: D o not add to previous draw Performed By: #### 8 [id number] #### [facility] [address] PHOSPHORUS BLOODon 9 Phosphate mass conc 2.7 mg/dL Normal 2.5-5.0 [facility] Comment on above: Order Comment: No: D o not add to previous draw Performed By: #### 8 [id number] #### [facility] [address] [place], [place] [id number] [place] [address] *CSF CULTUREon 05-25-2018 *CSF CULTURE Clinical Report: (D) Specimen/Source: CSF/Tube 3 Collected: 05/25/2018 15:00 Status: Final Last Updated: 05/30/2018 06:30 (1) Lumbar Puncture. GRAM (Final) No Polys Seen No Bacteria Seen CYTOSPUN (Final) This Gram Stain was done on a cytocentrifuged specimen CULT RES (Final) No Growth Day 5 Normal [facility] Comment on above: Order Comment: No: D o not add to previous draw Performed By: #### 1 0054 #### [facility] [address] [place] [address], [facility] ALBUMIN FLUID MISCon 019 Albumin mass conc g/dL Normal [facility] Comment on above: Order Comment: No: D o not add to previous draw Result Comment: The reference range and other method performance specifications have not been established for this test in fluids. the test result should be integrated into the clinical context for interpretation. Performed By: #### 1 0054 #### [facility] [address] ARTERIAL BLOOD GAS WITH ICAo n 05-25-2018 BASE EXCESS -2 mmol/L Normal -2-2 [facility] Comment on above: Performed By: #### 5 0103 #### [facility] [address] [place] [address], [facility] DELIVERY SYSTEMS MV Normal [facility] Comment on above: Performed By: #### 5 0103 #### [facility] [address] [facility] [place] [address], [facility] FIO2 40 % Normal 21-100 [facility] Comment on above: Performed By: #### 5 3 #### [facility] [address] [place] [address], [facility] HCO3 molar conc (Bld) 24 mmol/L Normal 23-27 [facility] Comment on above: Performed By: #### 5 0103 #### [facility] [address] [place] [address], [facility] IONIZED CALCIUM 1.16 mmol/L Normal 1.13-1.32 [facility] Comment on above: Performed By: #### 5 3 #### [facility] [address] [place] [address], [facility] MIN VOLUME 5.8 Normal [facility] Comment on above: Performed By: #### 5 0103 #### [facility] [address] [place] [address], [facility] MODALITY AC Normal [facility] Comment on above: Performed By: #### 5 0103 #### [facility] [address] [place] [address], [facility] Oxygen ppres (Bld) 131 mm[Hg] Critically high 75-100 T he [facility] Comment on above: Performed By: #### 5 0103 #### [facility] [address] [place] [address], [facility] Oxygen saturation in Blood 96.3 % Normal 94.0-97.0 [facility] Comment on above: Performed By: #### 5 0103 #### [facility] [address] [place] [address], [facility] PCO2 44 mmHg Normal 35-45 [facility] Comment on above: Performed By: #### 5 0103 #### [facility] [address] [place] [address], [facility] PEEP 8.0 CMH20 Normal [facility] Comment on above: Performed By: #### 5 0103 #### [facility] [address] [place] [address], [facility] pH (Bld) 7.34 [pH] Low 7.35-7.45 [facility] Comment on above: Performed By: #### 5 0103 #### [facility] [address] [place] [address], [facility] TIDAL VOLUME (VT) CC 400 Normal [facility] Comment on above: Performed By: #### 5 0103 #### [facility] [address] [place] [address], [facility] BASIC METABOLIC PANELon - Calcium mass conc 7.8 mg/dL Low 8.6-10.3 [facility] Comment on above: Order Comment: No: D o not add to previous draw Performed By: #### 5 0103 #### [facility] [address] [place] [address], [place] Chloride molar conc 111 mmol/L High 98-107 [facility] Comment on above: Order Comment: No: D o not add to previous draw Performed By: #### 5 0103 #### [facility] [address] [place] [address], [place] CO2 molar conc 22 mmol/L Normal 21-31 [facility] Comment on above: Order Comment: No: D o not add to previous draw Performed By: #### 5 0103 #### [facility] [address] [place] [address], [place] Creatinine mass conc 0.75 mg/dL Normal 0.60-1.20 [facility] Comment on above: Order Comment: No: D o not add to previous draw Performed By: #### 5 0103 #### [facility] [address] [place] [address], [place] GFR/1.73 sq M predicted among blacks MDRD vol rate/area (S/P/Bld) mL/min/{1.73_m2} Normal >60 [facility] Comment on above: Order Comment: No: D o not add to previous draw Performed By: #### 5 0103 #### [facility] [address] [place] [address], [place] GFR/1.73 sq M predicted among non-blacks MDRD vol rate/area (S/P/Bld) mL/min/{1.73_m2} Normal >60 [facility] Comment on above: Order Comment: No: D o not add to previous draw Performed By: #### 5 0103 #### [facility] [address] [place] [address], [place] Glucose mass conc 111 mg/dL High 70-100 [facility] Comment on above: Order Comment: No: D o not add to previous draw Performed By: #### 5 0103 #### [facility] [address] [place] [address], [facility] Potassium molar conc 3.3 mmol/L Low 3.5-5.1 [facility] Comment on above: Order Comment: No: D o not add to previous draw Performed By: #### 5 0103 #### [facility] [address] Sodium molar conc 139 mmol/L Normal 136-145 [facility] Comment on above: Order Comment: No: D o not add to previous draw Performed By: #### 5 0103 #### [facility] [address] Urea nitrogen mass conc 10 mg/dL Normal 7-25 [facility] Comment on above: Order Comment: No: D o not add to previous draw Performed By: #### 5 0103 #### [facility] [address] [facility] [place] [address], [facility] CBC W/DIFFon 05-25-2018 ABS BASOPHILS 0.0 10*3/uL Normal 0.0-0.2 [facility] Comment on above: Order Comment: No: D o not add to previous draw Performed By: #### 5 0103 #### [facility] [address] [facility] [place] [address], [facility] ABS IMM GRANS 0.0 10*3/uL Normal 0.0-0.2 [facility] Comment on above: Order Comment: No: D o not add to previous draw Performed By: #### 5 0103 #### [facility] [address] [place] [address], [facility] ABS NEUTROPHILS 2.9 10*3/uL Normal 1.6-7.6 [facility] Comment on above: Order Comment: No: D o not add to previous draw Performed By: #### 5 0103 #### [facility] [address] [place] [address], [facility] Basophils #/vol (Bld) 0.7 % Normal 0.0-1.0 [facility] Comment on above: Order Comment: No: D o not add to previous draw Performed By: #### 5 0103 #### [facility] [address] [place] [address], [facility] Eosinophils #/vol (Bld) 0.1 10*3/uL Normal 0.0-0.5 [facility] Comment on above: Order Comment: No: D o not add to previous draw Performed By: #### 5 0103 #### [facility] [address] [place] [id number], [facility] Eosinophils/100 WBC (Bld) 2.9 % Normal 0.0-6.0 [facility] Comment on above: Order Comment: No: D o not add to previous draw Performed By: #### 5 0103 #### [facility] [address] [place] [address], [facility] Erythrocyte distribution width Ratio (RBC) 14.2 % Normal 11.5-15.0 [facility] Comment on above: Order Comment: No: D o not add to previous draw Performed By: #### 5 3 #### [facility] [address] [place] [address], [facility] Hematocrit Volume Fraction (Bld) 33.4 % Low 36.0-45.0 [facility] Comment on above: Order Comment: No: D o not add to previous draw Performed By: #### 5 0103 #### [facility] [address] [place] [address], [facility] Hemoglobin mass conc (Bld) 10.8 g/dL Low 12.0-15.0 [facility] Comment on above: Order Comment: No: D o not add to previous draw Performed By: #### 5 0103 #### [facility] [address] IMMATURE GRANS 0.2 % Normal 0.0-1.0 [facility] Comment on above: Order Comment: No: D o not add to previous draw Performed By: #### 5 0103 #### [facility] [address] [place] [address], [facility] Lymphocytes #/vol (Bld) 1.1 10*3/uL Low 1.2-4.0 [facility] Comment on above: Order Comment: No: D o not add to previous draw Performed By: #### 5 0103 #### [facility] [address] [facility] [place] [address], [facility] Lymphocytes/100 WBC (Bld) 24.4 % Normal 20.0-45.0 [facility] Comment on above: Order Comment: No: D o not add to previous draw Performed By: #### 5 0103 #### [facility] [address] [facility] [place] [address], [facility] MCH Entitic mass (RBC) 27.9 pg Normal 27.0-33.0 [facility] Comment on above: Order Comment: No: D o not add to previous draw Performed By: #### 5 0103 #### [facility] [address] [facility] [address] MCHC mass conc (RBC) 32.3 g/dL Normal 32.0-35.0 [facility] Comment on above: Order Comment: No: D o not add to previous draw Performed By: #### 5 0103 #### [facility] [address] [place] [address], [facility] MCV Entitic volume (RBC) 86.3 fL Normal 82.0-98.0 [facility] Comment on above: Order Comment: No: D o not add to previous draw Performed By: #### 5 0103 #### [facility] [address] [place] [address], [facility] Monocytes #/vol (Bld) 0.3 10*3/uL Normal 0.1-1.0 [facility] Comment on above: Order Comment: No: D o not add to previous draw Performed By: #### 5 0103 #### [facility] [address] [place] [id number], [facility] MONOS 7.0 % Normal 5.0-12.0 [facility] Comment on above: Order Comment: No: D o not add to previous draw Performed By: #### 5 0103 #### [facility] [address] [place] [address], [facility] Neutrophils/100 WBC (Bld) 64.8 % Normal 40.0-72.0 [facility] Comment on above: Order Comment: No: D o not add to previous draw Performed By: #### 5 0103 #### [facility] [address] [place] [address], [facility] Nucleated RBC/100 WBC Ratio (Bld) 0 % Normal 0-0 [facility] Comment on above: Order Comment: No: D o not add to previous draw Performed By: #### 5 0103 #### [facility] [address] [facility] [address], [facility] PLAT CNT 172 10*3/uL Normal 150-400 [facility] Comment on above: Order Comment: No: D o not add to previous draw Performed By: #### 5 0103 #### [facility] [address] [place] [address], [facility] RBC #/vol (Bld) 3.87 10*6/uL Normal 3.80-5.00 [facility] Comment on above: Order Comment: No: D o not add to previous draw Performed By: #### 5 0103 #### [facility] [address] [place] [id number], [facility] WBC #/vol (Bld) 4.43 10*3/uL Normal 4.00-10.60 [facility] Comment on above: Order Comment: No: D o not add to previous draw Performed By: #### 5 0103 #### [facility] [address] [place] [address], [facility] CSF CELL COUNTon 05-25-2018 FLUID APPEAR ALL 4 TUBES: CLEAR A ND COLORLESS Normal [facility] Comment on above: Order Comment: No: D o not add to previous draw Performed By: #### 1 0054 #### [facility] [address] [place] [address], [facility] FLUID VOLUME 16.5 ml Normal [facility] Comment on above: Order Comment: No: D o not add to previous draw Performed By: #### 1 0054 #### [facility] [address] [place] [address], [place] Lymphocytes/100 WBC (Bld) 48 % High 0-0 [facility] Comment on above: Order Comment: No: D o not add to previous draw Performed By: #### 1 0054 #### [facility] [address] [place] [address], [facility] MACROPHAGE 11 % Normal [facility] Comment on above: Order Comment: No: D o not add to previous draw Performed By: #### 1 0054 #### [facility] [address] [place] [address], [facility] OTHER F1 TOTAL 68 WBC SEEN ON DIFF DONE ON CYTOSPIN PREP Normal [facility] Comment on above: Order Comment: No: D o not add to previous draw Result Comment: Resu lt changed by [email or web address] on 05/26/2018 09:25. The previous value was TOTAL 68 WBC SEEN ON DIFF DONE ON CYTOSPIN PREP. Performed By: #### 1 0054 #### [facility] [address] [place] [address], [facility] OTHER F3 Checked by Patrick walters M.D. Normal [facility] Comment on above: Order Comment: No: D o not add to previous draw Result Comment: Resu lt changed by [email or web address] on 05/26/2018 09:25. The previous value was Preliminary report; verified report to follow. Performed By: #### 1 0054 #### [facility] [address] [place] [address], [facility] RBC #/vol (Bld) 2 mm3 High 0-0 [facility] Comment on above: Order Comment: No: D o not add to previous draw Performed By: #### 1 0054 #### [facility] [address] [place] [address], [facility] RBC % CRENATION 0 % Normal 0-0 [facility] Comment on above: Order Comment: No: D o not add to previous draw Performed By: #### 1 0054 #### [facility] [address] [place] [address], [facility] SEGS 9 % High 0-0 [facility] Comment on above: Order Comment: No: D o not add to previous draw Performed By: #### 1 0054 #### [facility] [address] [place] [address], [facility] SITE LUMBAR, TUBE 4 Normal [facility] Comment on above: Order Comment: No: D o not add to previous draw Performed By: #### 1 0054 #### [facility] [address] [place] [address], [facility] WBC #/vol (Bld) 2 mm3 High 0-0 [facility] Comment on above: Order Comment: No: D o not add to previous draw Performed By: #### 1 0054 #### [facility] [address] [place] [address], [facility] XANTHOCHROMIA NONE SEEN Normal [facility] Comment on above: Order Comment: No: D o not add to previous draw Performed By: #### 1 0054 #### [facility] [address] [place] [address], [facility] DILANTINon 05-25-2018 DILANTIN (PHENYTOIN) 7.7 mcg/mL Low 10.0-20.0 [facility] Comment on above: Order Comment: No: D o not add to previous draw Performed By: #### 5 0103 #### [facility] [address] EEG Reporton 05-25-2018 EEG Report Name: Shabana Stallworth [facility] MR#: [id number] Age: 58 Physician: Colt Boggs M.D. Date: 05/23/2018-05/24/2018 Lab#: [id number], day 1 Date of : 1960 Patient Type: I NEURODIAGNOSTIC SERVICES REPORT [address], [place] [address] Board of the [place] [employer] Accredited Laboratory HISTORY: This video/EEG continuous monitoring is performed on a 58-year-old woman with altered mental status. CENTRAL ACTIVE MEDICATIONS: Propofol infusion, fentanyl. PROCEDURE: This is a 32-channel digital EEG recording with electrodes applied according to the International 10-20 System of Electrode Placement. The EEG was recorded and reviewed using multiple, reformatable montages. TECHNICAL DESCRIPTION: Background at the onset of recording is composed of 1 hertz, 40-60 microvolt polymorphic delta frequency, most prominently noted over the bilateral frontal brain regions, intermixed with 5-10 microvolt frontal and central beta frequency activity. Occasional 40-60 microvolt bifrontal sharp waves are noted, which are somewhat broad-based and do not associate with any rhythmic or evolving activity. As the study progressed, delta frequency attenuates, and by the end of the recording and after approximately 7 p.m. on May 23, there is an alternating pattern of poorly formed bursts and with alternating periods of 1-2 seconds of background suppression, which is somewhat incomplete, including some delta and beta frequency. During the bursts, there is generalized 10 microvolt beta frequency activity intermixed with 40-50 microvolt theta and delta frequencies. No behavioral abnormalities are noted throughout the EEG recording. No electrographic seizure activity is recorded. EEG DIAGNOSIS: This video/EEG continuous monitoring is abnormal due to: 1. Generalized background slowing. 2. Intermittent periods of suppression alternating with periods of activity as described above by the end of the study. EEG INTERPRETATION: This video/EEG continuous monitoring is abnormal due to the presence of generalized background slowing, consistent with encephalopathy of nonspecific etiology, and may also be consistent with the patient's known history of sedation. No electrographic seizure activity is recorded. Occasional right frontal poorly formed sharp waves are noted, however, these do not appear to disturb the background. Clinical correlation is advised. Electronically Signed by: Maribel Marinelli M.D. Ph.D 05/29/2018 05:10 P Maribel Marinelli M.D. Ph.D Date Dict: 05/24/2018/09:31 A/Maribel Marinelli M.D. Ph.D Date Trans: 05/24/2018 10:34 P/mmo [id number] cc: Colt Boggs M.D. [address] [place] [phone] Normal [facility] ENCEPHALOPATHY, AUTOIMMUNE C SFon 05-25-2018 ENCEPHALOPATHY AUTOIMMUNE EVAL, CSF Results faxed to ordering physician and sent to HIM Normal [facility] Comment on above: Performed By: #### 3 1018 #### [facility] [address] [facility] [place] [address], [facility] ENCEPHALOPATHY, AUTOIMMUNE S ERUMon 05-25-2018 ENCEPHALOPATHY EVALUATION Results faxed to ordering physician and sent to HIM Normal [facility] Comment on above: Performed By: #### 3 1018 #### [facility] [address] [facility] [place] [address], [facility] FLUID SPECIFIC GRAVITYon SPEC GRAV 1.005 Normal [facility] Comment on above: Order Comment: No: D o not add to previous draw Performed By: #### 8 5123 #### [facility] [address] [place] [address], [facility] FREE DILANTIN (UNBOUND)on FREE DILANTIN 1.0 mcg/mL Normal 1.0-2.0 [facility] Comment on above: Order Comment: No: D o not add to previous draw Performed By: #### 5 0103 #### [address] [place] [address], [facility] GLUCOSE CSFon 05-25-2018 GLUCOSE CSF 52 mg/dL Normal 40-70 [facility] Comment on above: Order Comment: No: D o not add to previous draw Performed By: #### 1 0054 #### [facility] [address] [place] [address], [facility] KEPPRA ILon 05-25-2018 IL Normal [facility] Comment on above: Order Comment: No: D o not add to previous draw KEPPRA 18 ug/mL Normal [facility] Comment on above: Order Comment: No: D o not add to previous draw Result Comment: A reference range for Keppra has not been well established. The proposed therapeutic range for seizure control is 6-46 ug/mL. Measurement of Levetiracetam (Keppra) can be elevated due to the presence of both Keppra and Brivaracetam (Briviact) in the patient's system. The medications are structurally similar thus cross reactivity is possible. Pharmacokinetics of Keppra are affected by renal function. The relationship between serum concentrations and toxicity is not known. LUMBAR PUNCTURE DIAGNOSTICon 05-25-2018 LUMBAR PUNCTURE DIAGNOSTIC [facility] Department of Radiology [address] [place] [id number] Patient Name: SHABANA STALLWORTH : 1960 Sex: F Age: Race: White Pt. Location: [place] [address] Patient Status: I Ordered Date: 05/25/2018 9:10:00 AM Completed Date: 05/25/2018 03:22 PM Requesting Provider: BECK TAPIA Attending Provider: REG RAHMAN Report Copy To: Signs & Symptoms: Altered Mental Status History: Patient history not available Comments: R/O Menningitis Exam: LUMBAR PUNCTURE DIAGNOSTIC LUMBAR PUNCTURE DIAGNOSTIC 05/25/2018 3:22 PM EST SIGNS AND SYMPTOMS: Altered Mental Status TECHNOLOGIST COMMENTS: ams, r/o meningitis. Lumbar puncture with Dr. Arnold. fluoro time 1.23 minutes opeing pressure 26. needle out 1507. approximately 18 cc of CSF collected and delivered to lab. QUESTION FOR THE RADIOLOGIST: R/O Menningitis INFORMED CONSENT: Reason for procedure was discussed with the patient. The procedure expectations risks benefits options and alternatives were discussed. All the questions were answered. The patient understood that results cannot be guaranteed. The procedure is indicated and risks are acceptable. Consent was obtained. Timeout: [place] protocol timeout verification performed. PROCEDURE: Lumbar puncture was performed under fluoroscopic guidance and local anesthesia with strict aseptic precautions in the lateral decubitus position. 1% lidocaine was used for local anesthesia. 3.5 inch 20-gauge spinal needle was used. Lumbar puncture was performed at L4-5 via right oblique sublaminar approach. Retrograde free flow of clear CSF was obtained. 18 cc of CSF was collected and sent to lab for investigations. Opening pressure was 26 mm of water. Fluoroscopy time: 1.23 minutes Patient tolerated the procedure well. No immediate complications were detected. IMPRESSION: Fluoroscopy guided lumbar puncture was performed. No immediate complications detected. Electronically signed by:Kacie Arnold. Transcribed by: [email or web address], User Resident: Electronically Signed by: KACIE ARNOLD @ 05/25/2018 06:13 PM [facility] Comment on above: Order Comment: No: D o not add to previous draw MRI BRAIN TEMPORAL LOBE W WO CONTRASTon 05-25-2018 MRI BRAIN TEMPORAL LOBE W WO CONTRAST [facility] Department of Radiology [address] [place] [address] Patient Name: SHABANA STALLWORTH : 1960 Sex: F Age: Race: White Pt. Location: [place] [address] Patient Status: I Ordered Date: 05/25/2018 10:00:00 AM Completed Date: 05/25/2018 02:30 PM Requesting Provider: VELIA NAPOLES Attending Provider: REG RAHMAN Report Copy To: Signs & Symptoms: Seizures History: Patient history not available Comments: R/O Menningitis, question of meningitis vs encephalitis vs CAUL FAT PULLER vasculitis Exam: MRI BRAIN TEMPORAL LOBE W WO CONTRAST MRI BRAIN TEMPORAL LOBE W WO CONTRAST 05/25/2018 2:30 PM EST SIGN AND SYMPTOMS: Seizures TECHNOLOGIST COMMENTS: pt had sudden onset of confusion and an episode of starring off increased fever QUESTION FOR RADIOLOGIST: R/O Menningitis, question of meningitis vs encephalitis vs CAUL FAT PULLER vasculitis PROTOCOL: The following pulse sequences were utilized when imaging the brain and temporal lobe: sagittal T1, diffusion weighted imaging, axial T2 FLAIR, coronal T2 FLAIR (temporal lobe), coronal T2 (temporal lobe), coronal 3D (temporal lobe), coronal T1, and axial GRE. Post contrast imaging obtained in coronal 3D and axial 3D. CONTRAST: Contrast: DOTAREM, 20 milliliter, Intravenous COMPARISON: Brain CT scan from May 23, 2018. FINDINGS: Extra axial spaces: Age appropriate. Hemorrhage: None. Ventricular system: Within normal limits. Basal cisterns: Within normal limits and not effaced. Cerebral parenchyma: Multiple areas of increased signal intensity in T2 FLAIR sequences within the periventricular and subcortical white matter without pathologic enhancement or evidence of restricted diffusion. The findings may represent severe likely vascular white matter ischemic disease which is somewhat exaggerated considering the patient's age. Differential possibilities include severe vasculitis or possibly demyelinating process in the proper clinical setting. Midline shift: None.. Cerebellum: Within normal limits. Brainstem: Within normal limits. OTHER: Calvarium: Normal marrow signal. Vascular system: Satisfactory flow voids within the anterior and posterior circulation. Visualized Paranasal sinuses: Mucoperiosteal thickening in the left maxillary sinus, ethmoid air cells and sphenoid sinus suggesting chronic sinus disease. There is also partial opacification of the mastoid air cells bilaterally. Visualized Orbits: Within normal limits. Visualized upper cervical spine: Within normal limits. Sella and skull base: Within normal limits. IMPRESSION: Large areas of periventricular and subcortical white matter abnormal signal intensity but without pathologic enhancement or restricted diffusion. The pattern may represent severe microvascular white matter ischemic disease or could be secondary to severe vasculitis. Possibility of demyelinating process is felt less likely but not excluded. No definite evidence of meningitis Electronically signed by:Kacie Arnold. Transcribed by: [email or web address], User Resident: Electronically Signed by: KACIE ARNOLD @ 05/26/2018 04:08 PM Normal [facility] Comment on above: Order Comment: No: D o not add to previous draw PROTHROMBIN TIMEon INR Coag RelTime (PPP) 1.10 {INR} Normal 0.91-1.16 [facility] Comment on above: Order Comment: No: D o not add to previous draw Result Comment: ACCC P RECOMMENDED INR FOR WARFARIN THERAPY ----- ------- CONDITION INR PROPHYLAXIS OF VENOUS THROMBOSIS 2-3 (HIGH-RISK SURGERY) TREATMENT OF VENOUS THROMBOSIS 2-3 TREATMENT OF PULMONARY EMBOLISM 2-3 PREVENTION OF SYSTEMIC EMBOLISM: 2-3 ACUTE MYOCARDIAL INFARCTION TISSUE HEART VALVES VALVULAR HEART DISEASE ATRIAL FIBRILLATION RECURRENT SYSTEMIC EMBOLISM MECHANICAL HEART VALVE 2.5-3.5 FROM: ORAL ANTICOAGULANTS. MECHANISM OF ACTION, CLINICAL EFFECTIVENESS, AND OPTIMAL THERAPEUTIC RANGE. CHEST 1995;108:231S-246S. Performed By: #### 1 0054 #### [facility] [address] Prothrombin time (PT) Coag time (PPP) 14.2 s Normal 12.3-14.8 [facility] Comment on above: Order Comment: No: D o not add to previous draw Result Comment: ALL RESULTS MUST BE INTERPRETED WITH RESPECT TO BLOOD DRAWING ARTIFACT OR DILUTION ERROR OF ANTICOAGULANT AT THE TIME OF SAMPLING. Performed By: #### 1 0054 #### [facility] [address] TOTAL PROTEIN CSFon 05-25-19 19 TOTAL PROTEIN CSF 93.0 mg/dL High 20.0-45.0 [facility] Comment on above: Order Comment: No: D o not add to previous draw Performed By: #### 1 0054 #### [facility] [address] TPO ANTIBODY [id number] 019 TPO ANTIBODY <0.3 Normal 0.0-9.0 [facility] Comment on above: Order Comment: SPECI MEN IS CSF. PLEASE RUN WITH DISCLAIMER. SPOKE WITH CLARISSAREFERENCE NUMBER [id number] results should be interpreted with caution. Assay wasperformed at client's request on a sub-optimal specimen. Result Comment: Perf ormed by [employer], [address] [place] [address] [email or web address], Jack Torres MD - Lab. Director VANCOMYCIN TIMEDon 9 VANCOMYCIN TIMED 12.6 mcg/mL Normal [facility] Comment on above: Performed By: #### 1 0054 #### [facility] [address] VANCOMYCIN TIMED 30.2 mcg/mL Normal [facility] Comment on above: Order Comment: No: D o not add to previous draw Performed By: #### 2 1408 #### [facility] [address] VANCOMYCIN TROUGHon 05-25-19 19 VANCOMYCIN TROU 10.9 mcg/mL Normal 5.0-20.0 [facility] Comment on above: Performed By: #### 5 0103 #### [facility] [address] *AFB BLOOD CULTUREon 019 *AFB BLOOD CULTURE Clinical Report: (V) Specimen: BLOOD CULTURE Collected: 05/24/2018 12:48 Status: Pending Last Updated: 05/26/2018 15:38 CULT RES (Prelim) Culture In Progress No Growth To Date Normal [facility] Comment on above: Performed By: #### 8 5123 #### [address] *BLOOD CULTUREon 05-24-2018 Bacteria identified Cx Nom (Bld) Clinical Report: (D) Specimen: BLOOD CULTURE Collected: 05/24/2018 14:47 Status: Final Last Updated: 05/30/2018 06:16 CULT RES (Final) No Growth Day 5 Normal [facility] Comment on above: Performed By: #### 2 1408 #### [facility] [address] Bacteria identified Cx Nom (Bld) Clinical Report: (D) Specimen: BLOOD CULTURE Collected: 05/24/2018 12:48 Status: Final Last Updated: 05/30/2018 06:16 CULT RES (Final) No Growth Day 5 Normal [facility] Comment on above: Performed By: #### 2 1408 #### [facility] [address] *FUNGAL BLOOD CULTUREon 05-15 *FUNGAL BLOOD CULTURE Clinical Report: (D) Specimen: BLOOD CULTURE Collected: 05/24/2018 12:48 Status: Final Last Updated: 07/06/2018 11:17 (1) No: Do not add to previous draw CULT RES (Final) No growth after 42 days of incubation Normal [facility] Comment on above: Order Comment: No: D o not add to previous draw Performed By: #### 8 5123 #### [facility] [address] [place] [address], [facility] ANAon 05-24-2018 Nuclear Ab IF titer (S) <1:40 Normal <1:40,1:40 [facility] Comment on above: Order Comment: No: D o not add to previous draw Performed By: #### 2 1408 #### [facility] [address] [facility]. [address] ANCA IGG WITH REFLEX [id number] on 05-24-2018 ANCA <1:20 Normal <1:20 [facility] Comment on above: Order Comment: No: D o not add to previous draw Result Comment: The ANCA IFA is <1:20; therefore, no further testing will be performed. INTERPRETIVE INFORMATION: Anti-Neutrophil Cyto Ab, IgG Neutrophil Cytoplasmic Antibodies (C-ANCA = granular cytoplasmic staining, P-ANCA = perinuclear staining) are found in the serum of over 90 percent of patients with certain necrotizing systemic vasculitides, and usually in less than 5 percent of patients with collagen vascular disease or arthritis. Performed by [employer], [address] [place] [id number] [email or web address], Jack Torres MD - Lab. Director ANTI DNAon 05-24-2018 ANTI DNA <1:10 Normal <1:10 [facility] Comment on above: Order Comment: No: D o not add to previous draw Performed By: #### 2 1408 #### [facility] [address] [place] [address], [facility] ANTI-BETA 2 GLYCOPROTEIN 1on 05-24-2018 ANTI B2GP1 IGG 0.0 g units Normal 0.0-19.9 [facility] Comment on above: Order Comment: No: D o not add to previous draw Performed By: #### 3 1018 #### [facility] [address] [place] [address], [place] ANTI B2GP1 IGM 3.6 m units Normal 0.0-19.9 [facility] Comment on above: Order Comment: No: D o not add to previous draw Performed By: #### 3 1018 #### [facility] [address] [place] [address], [facility] ANTICARDIOLIPIN ANTIBODYon 0 05-24-2018 CARDIOLIPIN IGG 7.3 GPL Normal 0.0-22.9 [facility] Comment on above: Order Comment: No: D o not add to previous draw Performed By: #### 3 1018 #### [facility] [address] [place] [address], [place] CARDIOLIPIN IGM 5.5 MPL Normal 0.0-10.9 [facility] Comment on above: Order Comment: No: D o not add to previous draw Performed By: #### 3 1018 #### [facility] [address] [place] [address], [place] ARTERIAL BLOOD GAS WITH ICAo n 05-24-2018 BASE EXCESS -3 mmol/L Low -2-2 [facility] Comment on above: Performed By: #### 3 1018 #### [facility] [address] [place] [address], [place] [employer] MV Normal [facility] Comment on above: Performed By: #### 3 1018 #### [facility] [address] [place] [address], [place] FIO2 40 % Normal 21-100 [facility] Comment on above: Performed By: #### 3 1018 #### [facility] [address] [place] [address], [facility] HCO3 molar conc (Bld) 22 mmol/L Low 23-27 [facility] Comment on above: Performed By: #### 3 1018 #### [facility] [address] [facility] [place] [address], [facility] IONIZED CALCIUM 1.14 mmol/L Normal 1.13-1.32 [facility] Comment on above: Performed By: #### 3 1018 #### [facility] [address] [facility] [place] [address], [facility] MIN VOLUME 5.8 Normal [facility] Comment on above: Performed By: #### 3 1018 #### [facility] [address] [place] [address], [facility] MODALITY AC Normal [facility] Comment on above: Performed By: #### 3 1018 #### [facility] [address] [facility] [place], [place] [id number] [place] [address] Oxygen ppres (Bld) 106 mm[Hg] Critically high 75-100 T he [facility] Comment on above: Performed By: #### 3 1018 #### [facility] [address] [place] [address], [facility] Oxygen saturation in Blood 95.3 % Normal 94.0-97.0 [facility] Comment on above: Performed By: #### 3 1018 #### [facility] [address] [place] [address], [facility] PCO2 37 mmHg Normal 35-45 [facility] Comment on above: Performed By: #### 3 1018 #### [facility] [address] [place] [address], [facility] PEEP 8.0 CMH20 Normal [facility] Comment on above: Performed By: #### 3 1018 #### [facility] [address] [facility] [place] [address], [facility] PF RATIO 265 mmHg Normal 50-400 [facility] Comment on above: Performed By: #### 3 1018 #### [facility] [address] [place] [address], [facility] pH (Bld) 7.38 [pH] Normal 7.35-7.45 [facility] Comment on above: Performed By: #### 3 1018 #### [facility] [address] [place] [address], [facility] TIDAL VOLUME (VT) CC 400 Normal [facility] Comment on above: Performed By: #### 3 1018 #### [facility] [address] [place] [address], [facility] BASIC METABOLIC PANELon 05-15 Calcium mass conc 8.0 mg/dL Low 8.6-10.3 [facility] Comment on above: Order Comment: No: D o not add to previous draw Performed By: #### 3 1018 #### [facility] [address] [place] [address], [place] Chloride molar conc 104 mmol/L Normal 98-107 [facility] Comment on above: Order Comment: No: D o not add to previous draw Performed By: #### 3 1018 #### [facility] [address] [place] [address], [place] CO2 molar conc 23 mmol/L Normal 21-31 [facility] Comment on above: Order Comment: No: D o not add to previous draw Performed By: #### 3 1018 #### [facility] [address] [place] [address], [place] Creatinine mass conc 0.99 mg/dL Normal 0.60-1.20 [facility] Comment on above: Order Comment: No: D o not add to previous draw Performed By: #### 3 1018 #### [facility] [address] [place] [address], [place] GFR/1.73 sq M predicted among blacks MDRD vol rate/area (S/P/Bld) mL/min/{1.73_m2} Normal >60 [facility] Comment on above: Order Comment: No: D o not add to previous draw Performed By: #### 3 1018 #### [facility] [address] [place] [address], [facility] GFR/1.73 sq M predicted among non-blacks MDRD vol rate/area (S/P/Bld) 58 ml/min/1.73sq m Abnormal >60 [facility] Comment on above: Order Comment: No: D o not add to previous draw Performed By: #### 3 1018 #### [facility] [address] [place] [address], [facility] Glucose mass conc 162 mg/dL High 70-100 [facility] Comment on above: Order Comment: No: D o not add to previous draw Performed By: #### 3 1018 #### [facility] [address] [place] [address], [place] Potassium molar conc 3.8 mmol/L Normal 3.5-5.1 [facility] Comment on above: Order Comment: No: D o not add to previous draw Performed By: #### 3 1018 #### [facility] [address] [place] [address], [place] Sodium molar conc 135 mmol/L Low 136-145 [facility] Comment on above: Order Comment: No: D o not add to previous draw Performed By: #### 3 1018 #### [facility] [address] [place] [address], [place] Urea nitrogen mass conc 15 mg/dL Normal 7-25 [facility] Comment on above: Order Comment: No: D o not add to previous draw Performed By: #### 3 1018 #### [facility] [address] [place] [address], [place] CBC COMPLETE BLOOD COUNTon 0 - Erythrocyte distribution width Ratio (RBC) 13.7 % Normal 11.5-15.0 [facility] Comment on above: Order Comment: No: D o not add to previous draw Performed By: #### 3 1018 #### [facility] [address] [place] [address], [facility] Hematocrit Volume Fraction (Bld) 36.6 % Normal 36.0-45.0 [facility] Comment on above: Order Comment: No: D o not add to previous draw Performed By: #### 3 1018 #### [facility] [address] [place] [address], [facility] Hemoglobin mass conc (Bld) 11.8 g/dL Low 12.0-15.0 [facility] Comment on above: Order Comment: No: D o not add to previous draw Performed By: #### 3 1018 #### [facility] [address] [place] [address], [facility] MCH Entitic mass (RBC) 27.6 pg Normal 27.0-33.0 [facility] Comment on above: Order Comment: No: D o not add to previous draw Performed By: #### 3 1018 #### [facility] [address] [facility] [place] [address], [facility] MCHC mass conc (RBC) 32.2 g/dL Normal 32.0-35.0 [facility] Comment on above: Order Comment: No: D o not add to previous draw Performed By: #### 3 1018 #### [facility] [address] [place] [address], [facility] MCV Entitic volume (RBC) 85.7 fL Normal 82.0-98.0 [facility] Comment on above: Order Comment: No: D o not add to previous draw Performed By: #### 3 1018 #### [facility] [address] [place] [id number], [facility] Nucleated RBC/100 WBC Ratio (Bld) 0 % Normal 0-0 [facility] Comment on above: Order Comment: No: D o not add to previous draw Performed By: #### 3 1018 #### [facility] [address] [place] [address], [facility] PLAT CNT 204 10*3/uL Normal 150-400 [facility] Comment on above: Order Comment: No: D o not add to previous draw Performed By: #### 3 1018 #### [facility] [address] [place] [address], [facility] RBC #/vol (Bld) 4.27 10*6/uL Normal 3.80-5.00 [facility] Comment on above: Order Comment: No: D o not add to previous draw Performed By: #### 3 1018 #### [facility] [address] [place] [address], [facility] WBC #/vol (Bld) 8.94 10*3/uL Normal 4.00-10.60 [facility] Comment on above: Order Comment: No: D o not add to previous draw Performed By: #### 3 1018 #### [facility] [address] [place] [address], [facility] COMPLEMENT 3on 05-24-2018 COMPLEMENT 3 134 mg/dL Normal 79-152 [facility] Comment on above: Order Comment: No: D o not add to previous draw Performed By: #### 5 0103 #### [facility] [address] [place] [address], [facility] COMPLEMENT 4on 05-24-2018 COMPLEMENT 4 28 mg/dL Normal 16-38 [facility] Comment on above: Order Comment: No: D o not add to previous draw Performed By: #### 5 0103 #### [facility] [address] [place] [address], [facility] CRYOGLOBULIN ILon 05-24-2018 CRYOGLOBULIN 0 mg/dL Normal 0-10 [facility] CYCLIC CITRULLINATED PEPTIDE AB [id number] 05-24-2018 CYCLIC CIT PEP 6 Units Normal 0-19 [facility] Comment on above: Order Comment: No: D o not add to previous draw Result Comment: INTE RPRETIVE INFORMATION: Cyclic Citrullinated Peptide Antibody, IgG 19 Units or less ................... Negative 20-39 Units ........................ Weak Positive 40-59 Units ........................ Moderate Positive 60 Units or greater ................ Strong Positive Anti-cyclic citrullinated peptide (anti-CCP), IgG antibodies are present in about 69-83 percent of patients with rheumatoid arthritis (RA) and have specificities of 93-95 percent. These autoantibodies may be present in the preclinical phase of disease, are associated with future RA development, and may predict radiographic joint destruction. Patients with weak positive results should be monitored and testing repeated. Performed by [employer], [address] [place] [id number] [email or web address], Jack Torres MD - Lab. Director DRVVT SCREENon 05-24-2018 DRVVT SCREEN 1.04 RATIO Normal 0.00-1.20 [facility] Comment on above: Order Comment: No: D o not add to previous draw Performed By: #### 1 0054 #### [facility] [address] [facility]. [address] EEG Reporton 05-24-2018 EEG Report Name: Shabana Stallworth [facility] MR#: [id number] Age: 58 Physician: Colt Boggs M.D. Date: 05/23/2018 Lab#: [id number] Date of : 1960 Patient Type: I NEURODIAGNOSTIC SERVICES REPORT [address], [place] [address] Board of the [place] [employer] Accredited Laboratory HISTORY: This EEG is performed on a 58-year-old woman with altered mental status and fever. CENTRAL ACTIVE MEDICATIONS: Propofol. PROCEDURE: This is a 32-channel digital EEG recording with electrodes applied according to the International 10-20 System of Electrode Placement. The EEG was recorded and reviewed using multiple, reformatable montages. TECHNICAL DESCRIPTION: There is no normal background throughout the EEG recording. Background consists of 30-50 microvolts generalized polymorphic delta frequency of approximately 1 hertz, with overlying 5 microvolts beta frequency activity. Intermittent sharp waves of approximately 50-60 microvolts in amplitude are noted over the right frontal brain region, and at times also reflected in the left frontal brain regions. No electrographic seizure activity is recorded. Hyperventilation could not be performed. Photic stimulation was performed, and produces posterior driving responses, which are better sustained over the left hemisphere as compared to the right side. No electroencephalographic clear sleep is noted, however, the entire EEG consists of beta frequency activity overlying delta frequency, resembling spindle activity. This does not appear to be typical for sleep and not it is diffuse beta frequency. EEG DIAGNOSIS: This EEG is abnormal due to the presence of severe generalized background slowing, and intermittent right more than left frontal sharp waves. EEG INTERPRETATION: This EEG is abnormal due to the presence of severe generalized background slowing, consistent with encephalopathy of nonspecific etiology. Right frontal sharp activity is epileptiform, and would infer a partial mechanism of seizure generation. No electrographic seizure activity is recorded. Video/EEG monitoring is to follow this report. Electronically Signed by: Maribel Marinelli M.D. Ph.D 05/29/2018 05:10 P Maribel Marinelli M.D. Ph.D Date Dict: 05/23/2018/04:40 P/Maribel Marinelli M.D. Ph.D Date Trans: 05/24/2018 05:02 Dipak/luis e [id number] cc: Colt Boggs M.D. [address] [place] [id number] Normal [facility] FREE DILANTIN (UNBOUND)on FREE DILANTIN 1.2 mcg/mL Normal 1.0-2.0 [facility] Comment on above: Order Comment: No: D o not add to previous draw2x could not get Performed By: #### 3 1018 #### [facility] [address] [place] [address], [facility] LUPUS ANTICOAGULANTon 2018 LUPUS ANTICOAGUL Negative Normal NEGATIVE [facility] Comment on above: Order Comment: No: D o not add to previous draw Result Comment: BY H EXAGONAL PHASE PHOSPHOLIPID METHODOLOGY Performed By: #### 2 1408 #### [facility] [address] [place] [address], [facility] MAGNESIUM BLOODon 05-24-2018 Magnesium mass conc 1.7 mg/dL Low 1.9-2.7 [facility] Comment on above: Order Comment: No: D o not add to previous draw Performed By: #### 3 1018 #### [facility] [address] [place] [address], [facility] PHOSPHORUS BLOODon 9 Phosphate mass conc 3.5 mg/dL Normal 2.5-5.0 [facility] Comment on above: Order Comment: No: D o not add to previous draw Performed By: #### 3 1018 #### [facility] [address] [place] [address], [facility] PROCALCITONINon 05-24-2018 Protein mass conc 0.18 ng/mL High 0.00-0.10 [facility] Comment on above: Order Comment: No: D o not add to previous draw Result Comment: Susp ected Lower Respiratory Tract Infection: 0.1-0.25ng/mL- Low likelihood for bacterial infection;Antibiotics discouraged.* >0.25ng/mL- Increased likelihood bacterial infection;Antibiotics encouraged. ____ Suspected Sepsis: Strongly consider initiating antibiotics in all unstable patients. 0.1-0.5ng/mL- Low likelihood for sepsis; Antibiotics discouraged.* >0.5ng/mL- Increased likelihood sepsis; Antibiotics encouraged. >2.0ng/mL- High risk of sepsis/septic shock; Antibiotics strongly encouraged. *Recommend retesting PCT within 6-12hours if clinically indicated and initial PCT<0.5ng/mL Performed By: #### 5 0103 #### [facility] [address] [place] [address], [facility] PTT-LAon 05-24-2018 aPTT Coag time (Bld) 37.3 s Normal 31.0-43.0 [facility] Comment on above: Order Comment: No: D o not add to previous draw Performed By: #### 2 1408 #### [facility] [address] [place] [address], [facility] RHEUMATOID FACTOR SERUMon RA <20 Normal 0-20 [facility] Comment on above: Order Comment: No: D o not add to previous draw Performed By: #### 5 0103 #### [facility] [address] [place] [address], [facility] SJOGRENS ANTIBODIESon 2018 SS-A Negative Normal NEG,NEGATIVE ,Neg [facility] Comment on above: Order Comment: No: D o not add to previous draw Performed By: #### 2 1408 #### [facility] [address] [place] [address], [facility] SS-B Negative Normal NEG,NEGATIVE ,Neg [facility] Comment on above: Order Comment: No: D o not add to previous draw Performed By: #### 2 1408 #### [facility] [address] [place] [address], [facility] SMOOTH MUSCLE ABon 9 SMOOTH MUSC AB 1:20 Abnormal NONE DETECTED [facility] Comment on above: Order Comment: No: D o not add to previous draw Result Comment: NONE DETECTED: LESS THAN 1:20 WEAKLY POSITIVE: 1:20 - 1:40 SUGGESTIVE OF CHRONIC HEPATITIS: 1:80 OR GREATER NOTE: FOR WEAKLY POSITIVE RESULTS, TITER MAY BE PRESENT IN ACUTE VIRAL HEPATITIS, INFECTIOUS MONONUCLEOSIS OR MALIGNANCY. Performed By: #### 2 1408 #### [facility] [address] [facility] [place] [address], [facility] URINALYSIS REFLEXon 05-24-19 19 Appearance Nom (U) CLEAR Normal CLEAR [facility] Comment on above: Order Comment: No: D o not add to previous drawCriteria for reflexing a culture was not met. Please call the lab [id number] within 24 hours of collection time if culture is needed Performed By: #### 3 1018 #### [facility] [address] [place] [address], [facility] Bilirubin mass conc Negative Normal NEGATIVE [facility] Comment on above: Order Comment: No: D o not add to previous drawCriteria for reflexing a culture was not met. Please call the lab [id number] within 24 hours of collection time if culture is needed Performed By: #### 3 1018 #### [facility] [address] [place] [address], [facility] BLOOD MODERATE Abnormal NEGATIVE [facility] Comment on above: Order Comment: No: D o not add to previous drawCriteria for reflexing a culture was not met. Please call the lab [id number] within 24 hours of collection time if culture is needed Performed By: #### 3 1018 #### [facility] [address] [place] [address], [facility] Color Nom (U) YELLOW Normal YELLOW [facility] Comment on above: Order Comment: No: D o not add to previous drawCriteria for reflexing a culture was not met. Please call the lab [id number] within 24 hours of collection time if culture is needed Performed By: #### 3 1018 #### [facility] [address] [place] [address], [place] EPIS OCC Normal FEW,OCC,NONE SEEN [facility] Comment on above: Order Comment: No: D o not add to previous drawCriteria for reflexing a culture was not met. Please call the lab [id number] within 24 hours of collection time if culture is needed Performed By: #### 3 1018 #### [facility] [address] [place] [address], [place] Glucose mass conc Negative Normal NEGATIVE [facility] Comment on above: Order Comment: No: D o not add to previous drawCriteria for reflexing a culture was not met. Please call the lab [id number] within 24 hours of collection time if culture is needed Performed By: #### 3 1018 #### [facility] [address] [place] [address], [place] KETONE Negative Normal NEGATIVE [facility] Comment on above: Order Comment: No: D o not add to previous drawCriteria for reflexing a culture was not met. Please call the lab [id number] within 24 hours of collection time if culture is needed Performed By: #### 3 1018 #### [facility] [address] [place] [address], [place] LEUK BARRETT Negative Normal NEGATIVE [facility] Comment on above: Order Comment: No: D o not add to previous drawCriteria for reflexing a culture was not met. Please call the lab [id number] within 24 hours of collection time if culture is needed Performed By: #### 3 1018 #### [facility] [address] [place] [address], [place] MUCUS THREADS OCC Abnormal NONE SEEN [facility] Comment on above: Order Comment: No: D o not add to previous drawCriteria for reflexing a culture was not met. Please call the lab [id number] within 24 hours of collection time if culture is needed Performed By: #### 3 1018 #### [facility] [address] [place] [address], [place] Nitrite Ql (U) Negative Normal NEGATIVE [facility] Comment on above: Order Comment: No: D o not add to previous drawCriteria for reflexing a culture was not met. Please call the lab [id number] within 24 hours of collection time if culture is needed Performed By: #### 3 1018 #### [facility] [address] [place] [address], [facility] pH (Bld) 5.0 Normal 5.0-8.0 [facility] Comment on above: Order Comment: No: D o not add to previous drawCriteria for reflexing a culture was not met. Please call the lab [id number] within 24 hours of collection time if culture is needed Performed By: #### 3 1018 #### [facility] [address] [facility]. [address] Protein mass conc (U) Negative Normal NEGATIVE [facility] Comment on above: Order Comment: No: D o not add to previous drawCriteria for reflexing a culture was not met. Please call the lab [id number] within 24 hours of collection time if culture is needed Performed By: #### 3 1018 #### [facility] [address] [place] [address], [facility] RBC #/vol (U) 21-50 Abnormal NONE SEEN [facility] Comment on above: Order Comment: No: D o not add to previous drawCriteria for reflexing a culture was not met. Please call the lab [id number] within 24 hours of collection time if culture is needed Performed By: #### 3 1018 #### [facility] [address] [place] [address], [facility] SPEC GRAV 1.023 High 1.015-1.020 [facility] Comment on above: Order Comment: No: D o not add to previous drawCriteria for reflexing a culture was not met. Please call the lab [id number] within 24 hours of collection time if culture is needed Performed By: #### 3 1018 #### [facility] [address] URIC ACID CRYSTAL OCC Abnormal NONE SEEN [facility] Comment on above: Order Comment: No: D o not add to previous drawCriteria for reflexing a culture was not met. Please call the lab [id number] within 24 hours of collection time if culture is needed Performed By: #### 3 1018 #### [facility] [address] [place] [address], [facility] WBC UA 3-5 Abnormal NONE SEEN [facility] Comment on above: Order Comment: No: D o not add to previous drawCriteria for reflexing a culture was not met. Please call the lab [id number] within 24 hours of collection time if culture is needed Performed By: #### 3 1018 #### [facility] [address] [facility]. [address] *RAPID FLU AANDB BY ELDON Londono 05-23-2018 *RAPID FLU AANDB BY MOLECULAR Clinical Report: (D) Specimen: NASAL SWAB Collected: 05/23/2018 11:11 Status: Final Last Updated: 05/23/2018 11:48 FLUA RNA (Final) Negative FLUB RNA (Final) Negative Normal [facility] Comment on above: Performed By: #### 3 1018 #### [facility] [address] [place] [address], [facility] AMMONIA BLOODon 05-23-2018 Ammonia mass conc (P) 39 umol/L Normal 16-53 [facility] Comment on above: Order Comment: No: D o not add to previous draw Performed By: #### 2 1408 #### [facility] [address] [facility] [place] [address], [facility] ARTERIAL BLOOD GAS WITH ICAo n 05-23-2018 BASE EXCESS -1 mmol/L Normal -2-2 [facility] Comment on above: Performed By: #### 3 1018 #### [facility] [address] [place] [address], [facility] DELIVERY SYSTEMS MV Normal [facility] Comment on above: Performed By: #### 3 1018 #### [facility] [address] [place] [address], [place] FIO2 50 % Normal 21-100 [facility] Comment on above: Performed By: #### 3 1018 #### [facility] [address] [place] [address], [place] HCO3 molar conc (Bld) 22 mmol/L Low 23-27 [facility] Comment on above: Performed By: #### 3 1018 #### [facility] [address] [place] [address], [place] IONIZED CALCIUM 1.12 mmol/L Low 1.13-1.32 [facility] Comment on above: Performed By: #### 3 1018 #### [facility] [address] [place] [address], [place] MIN VOLUME 11.2 Normal [facility] Comment on above: Performed By: #### 3 1018 #### [facility] [address] [place] [address], [place] MODALITY A/C Normal [facility] Comment on above: Performed By: #### 3 1018 #### [facility] [address] [place] [address], [place] Oxygen ppres (Bld) 131 mm[Hg] Critically high 75-100 T [facility] Comment on above: Performed By: #### 3 1018 #### [facility] [address] [place] [address], [place] Oxygen saturation in Blood 96.0 % Normal 94.0-97.0 [facility] Comment on above: Performed By: #### 3 1018 #### [facility] [address] [place] [address], [place] PCO2 29 mmHg Low 35-45 [facility] Comment on above: Performed By: #### 3 1018 #### [facility] [address] PEEP 8.0 CMH20 Normal [facility] Comment on above: Performed By: #### 3 1018 #### [facility] [address] [facility] [place] [address], [facility] PF RATIO 262 mmHg Normal 50-400 [facility] Comment on above: Performed By: #### 3 1018 #### [facility] [address] pH (Bld) 7.48 [pH] High 7.35-7.45 [facility] Comment on above: Performed By: #### 3 1018 #### [facility] [address] TIDAL VOLUME (VT) CC 450 Normal [facility] Comment on above: Performed By: #### 3 1018 #### [facility] [address] BNP (B-TYPE NATRIURETIC PEPT PATRICIA)on 05-23-2018 Natriuretic peptide B mass conc (Bld) 39 pg/mL Normal 0-100 [facility] Comment on above: Order Comment: No: D o not add to previous draw Result Comment: Give n the appropriate clinical setting a BNP result of >100 pg/mL indicates congestive heart failure. Performed By: #### 8 5123 #### [facility] [address] CBC W/DIFFon 05-23-2018 ABS BASOPHILS 0.0 10*3/uL Normal 0.0-0.2 [facility] Comment on above: Order Comment: No: D o not add to previous draw Performed By: #### 5 0103 #### [facility] [address] ABS IMM GRANS 0.0 10*3/uL Normal 0.0-0.2 [facility] Comment on above: Order Comment: No: D o not add to previous draw Performed By: #### 5 0103 #### [facility] [address] [place] [address], [facility] ABS NEUTROPHILS 5.0 10*3/uL Normal 1.6-7.6 [facility] Comment on above: Order Comment: No: D o not add to previous draw Performed By: #### 5 0103 #### [facility] [address] [place] [address], [facility] Basophils #/vol (Bld) 0.4 % Normal 0.0-1.0 [facility] Comment on above: Order Comment: No: D o not add to previous draw Performed By: #### 5 0103 #### [facility] [address] [place] [address], [facility] Eosinophils #/vol (Bld) 0.0 10*3/uL Normal 0.0-0.5 [facility] Comment on above: Order Comment: No: D o not add to previous draw Performed By: #### 5 0103 #### [facility] [address] [place] [address], [facility] Eosinophils/100 WBC (Bld) 0.0 % Normal 0.0-6.0 [facility] Comment on above: Order Comment: No: D o not add to previous draw Performed By: #### 5 0103 #### [facility] [address] [place] [address], [facility] Erythrocyte distribution width Ratio (RBC) 13.2 % Normal 11.5-15.0 [facility] Comment on above: Order Comment: No: D o not add to previous draw Performed By: #### 5 0103 #### [facility] [address] [place] [address], [facility] Hematocrit Volume Fraction (Bld) 43.7 % Normal 36.0-45.0 [facility] Comment on above: Order Comment: No: D o not add to previous draw Performed By: #### 5 0103 #### [facility] [address] [facility] [address], [facility] Hemoglobin mass conc (Bld) 14.6 g/dL Normal 12.0-15.0 [facility] Comment on above: Order Comment: No: D o not add to previous draw Performed By: #### 5 0103 #### [facility] [address] [place] [address], [facility] IMMATURE GRANS 0.3 % Normal 0.0-1.0 [facility] Comment on above: Order Comment: No: D o not add to previous draw Performed By: #### 5 0103 #### [facility] [address] [place] [address], [facility] Lymphocytes #/vol (Bld) 1.7 10*3/uL Normal 1.2-4.0 [facility] Comment on above: Order Comment: No: D o not add to previous draw Performed By: #### 5 0103 #### [facility] [address] [place] [address], [facility] Lymphocytes/100 WBC (Bld) 24.8 % Normal 20.0-45.0 [facility] Comment on above: Order Comment: No: D o not add to previous draw Performed By: #### 5 3 #### [facility] [address] MCH Entitic mass (RBC) 27.7 pg Normal 27.0-33.0 [facility] Comment on above: Order Comment: No: D o not add to previous draw Performed By: #### 5 0103 #### [facility] [address] [place] [address], [facility] MCHC mass conc (RBC) 33.4 g/dL Normal 32.0-35.0 [facility] Comment on above: Order Comment: No: D o not add to previous draw Performed By: #### 5 3 #### [facility] [address] [place] [address], [facility] MCV Entitic volume (RBC) 82.9 fL Normal 82.0-98.0 [facility] Comment on above: Order Comment: No: D o not add to previous draw Performed By: #### 5 0103 #### [facility] [address] [place] [id number], [facility] Monocytes #/vol (Bld) 0.3 10*3/uL Normal 0.1-1.0 [facility] Comment on above: Order Comment: No: D o not add to previous draw Performed By: #### 5 0103 #### [facility] [address] [facility] [place] [address], [facility] MONOS 3.6 % Low 5.0-12.0 [facility] Comment on above: Order Comment: No: D o not add to previous draw Performed By: #### 5 0103 #### [facility] [address] [place] [address], [facility] Neutrophils/100 WBC (Bld) 70.9 % Normal 40.0-72.0 [facility] Comment on above: Order Comment: No: D o not add to previous draw Performed By: #### 5 0103 #### [facility] [address] [facility] [place] [address], [facility] Nucleated RBC/100 WBC Ratio (Bld) 0 % Normal 0-0 [facility] Comment on above: Order Comment: No: D o not add to previous draw Performed By: #### 5 0103 #### [facility] [address] [place] [address], [facility] PLAT CNT 241 10*3/uL Normal 150-400 [facility] Comment on above: Order Comment: No: D o not add to previous draw Performed By: #### 5 0103 #### [facility] [address] [place] [address], [facility] RBC #/vol (Bld) 5.27 10*6/uL High 3.80-5.00 [facility] Comment on above: Order Comment: No: D o not add to previous draw Performed By: #### 5 0103 #### [facility] [address] [place] [address], [facility] WBC #/vol (Bld) 7.03 10*3/uL Normal 4.00-10.60 [facility] Comment on above: Order Comment: No: D o not add to previous draw Performed By: #### 5 0103 #### [facility] [address] [place] [address], [place] COMP METABOLIC PANELon 05-23 Albumin mass conc 4.1 g/dL Normal 3.5-5.7 [facility] Comment on above: Order Comment: No: D o not add to previous draw Performed By: #### 2 5508, 55220, 91449, 57192 #### [facility] [address] [place] [address], [place] ALKALINE PHOSPH 58 IU/L Normal 34-104 [facility] Comment on above: Order Comment: No: D o not add to previous draw Performed By: #### 2 5508, 91507, 96123, 96580 #### [facility] [address] [place] [address], [place] ALT enzyme act/vol 43 U/L Normal 7-52 [facility] Comment on above: Order Comment: No: D o not add to previous draw Performed By: #### 2 5508, 08912, 50538, 13186 #### [facility] [address] [place] [address], [place] AST enzyme act/vol 30 U/L Normal 13-39 [facility] Comment on above: Order Comment: No: D o not add to previous draw Performed By: #### 2 5508, 15896, 49408, 84864 #### [facility] [address] [place] [address], [place] Bilirubin mass conc 0.5 mg/dL Normal 0.3-1.0 [facility] Comment on above: Order Comment: No: D o not add to previous draw Performed By: #### 2 5507, 66684, 79804, 66558 #### [facility] [address] [place] [address], [place] Calcium mass conc 9.4 mg/dL Normal 8.6-10.3 [facility] Comment on above: Order Comment: No: D o not add to previous draw Performed By: #### 2 550, 35454, 85192, 24897 #### [facility] [address] [place] [address], [place] Chloride molar conc 99 mmol/L Normal 98-107 [facility] Comment on above: Order Comment: No: D o not add to previous draw Performed By: #### 2 5507, 19551, 57899, 39509 #### [facility] [address] [place] [address], [place] CO2 molar conc 24 mmol/L Normal 21-31 [facility] Comment on above: Order Comment: No: D o not add to previous draw Performed By: #### 2 550, 87183, 20557, 37219 #### [facility] [address] [place] [address], [place] Creatinine mass conc 0.97 mg/dL Normal 0.60-1.20 [facility] Comment on above: Order Comment: No: D o not add to previous draw Performed By: #### 2 550, 72823, 40856, 19400 #### [facility] [address] [place] [address], [place] GFR/1.73 sq M predicted among blacks MDRD vol rate/area (S/P/Bld) mL/min/{1.73_m2} Normal >60 [facility] Comment on above: Order Comment: No: D o not add to previous draw Performed By: #### 2 550, 74905, 01709, 98847 #### [facility] [address] [place] [address], [place] GFR/1.73 sq M predicted among non-blacks MDRD vol rate/area (S/P/Bld) 59 ml/min/1.73sq m Abnormal >60 [facility] Comment on above: Order Comment: No: D o not add to previous draw Performed By: #### 2 550, 58226, 70418, 76420 #### [facility] [address] [place] [address], [place] Glucose mass conc 204 mg/dL High 70-100 [facility] Comment on above: Order Comment: No: D o not add to previous draw Performed By: #### 2 550, 18732, 79021, 71807 #### [facility] [address] [place] [address], [place] Potassium molar conc 4.0 mmol/L Normal 3.5-5.1 [facility] Comment on above: Order Comment: No: D o not add to previous draw Performed By: #### 2 5508, 67545, 17605, 14159 #### [facility] [address] [place] [address], [place] Protein mass conc 7.7 g/dL Normal 6.0-8.3 [facility] Comment on above: Order Comment: No: D o not add to previous draw Performed By: #### 2 5508, 16948, 82453, 72895 #### [facility] [address] [place] [address], [place] Sodium molar conc 134 mmol/L Low 136-145 [facility] Comment on above: Order Comment: No: D o not add to previous draw Performed By: #### 2 5508, 92327, 33550, 55375 #### [facility] [address] [place] [address], [place] Urea nitrogen mass conc 18 mg/dL Normal 7-25 [facility] Comment on above: Order Comment: No: D o not add to previous draw Performed By: #### 2 5508, 64968, 66721, 31594 #### [address] CPKon 05-23-2018 CK enzyme act/vol 47 U/L Normal 30-223 [facility] Comment on above: Performed By: #### 2 5508, 58772, 19788, 05865 #### [facility] [address] BRAIN W WO CONTRASTon CT BRAIN W WO CONTRAST [facility] Department of Radiology [address] [place] [id number] Patient Name: SHABANA STALLWORTH : 1960 Sex: F Age: Race: White Pt. Location: [place] [address] Patient Status: I Ordered Date: 05/23/2018 4:25:00 PM Completed Date: 05/23/2018 06:01 PM Requesting Provider: VICTOR MANUEL DUNLAP Attending Provider: REG RAHMAN Report Copy To: Signs & Symptoms: Stroke(CVA) History: Patient history not available Comments: R/O Seizure Disorder Exam: CT BRAIN W WO CONTRAST CT BRAIN W WO CONTRAST 05/23/2018 6:01 PM EST SIGNS AND SYMPTOMS: Stroke(CVA) TECHNOLOGIST COMMENTS: Pt with increased confusion, decreased LOC, x 5 days with seizure like activity. Elevated temperature 104. QUESTION FOR THE RADIOLOGIST: R/O Seizure Disorder PROTOCOL: Axial CT images of the head were obtained with and without IV contrast. CONTRAST: Contrast: OMNIPAQUE 350 (LOCM), 75 milliliter, Intravenous TECHNIQUE:Multi-detector CT axial slices of the brain were obtained with IV contrast. Helical,sagittal, coronal, and 3-D reconstructions were performed and viewed on a separate workstation. Appropriate CT dose lowering techniques were utilized. COMPARISON: None. FINDINGS: There is no shift of the midline structures, acute intracranial bleeding, mass effects, or evidence of acute ischemia. The ventricular system is normal in size. The brainstem and the cerebellum are unremarkable. The visualized intraorbital contents, the visualized paranasal sinuses, and the infratemporal soft tissues show no abnormality. The osseous structures in the skull base and the calvarium show no acute abnormality. No abnormal post contrast enhancement. IMPRESSION: Normal contrast-enhanced CT brain. Approved by:Stormy ACEVEDO on 05/23/2018 6:58 PM EST. I, Jewel Barnett, have reviewed the images and report and concur with these findings. Electronically signed by:Jewel Barnett. Transcribed by: [email or web address], User Resident: STORMY ACEVEDO Electronically Signed by: JEWEL BARNETT @ 05/24/2018 07:57 AM I personally read this/these film(s) with this resident Normal [facility] Comment on above: Order Comment: R/O S eizure Disorder History and Physicalon 05-23 History and Physical MR#: [id number] [facility] Pt. Name: Shabana Stallworth Admitted: 05/23/2018 Date of : 1960 Attending Physician: Oral Ortiz MD Room #: [facility] [id number] Discharge Date: HISTORY AND PHYSICAL CHIEF COMPLAINT: Progressive confusion through past 5 days, lethargy and decreased responsiveness since yesterday. HISTORY OF PRESENTING ILLNESS: The patient is a 58-year-old female with the past medical history significant for type 2 diabetes mellitus, on metformin; hypertension; and hypothyroidism, who was brought to the ED from work yesterday. She was noted to be confused. 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 On questioning, the patient told him she did not remember how to do it. Subsequently, she was apparently could not remember her name, could not perform basic tasks at work, could not remember events of the day. Since Friday, her children have noticed while driving she has been missing the turns, which is her routine way to drive to work. For the past 3 days after she got from work, she goes to sleep immediately and for the past 2-3 days, she has been sleeping more than usual. Her at bedside denies she having any episodes of chills, complaining of headache, no incontinence, no seizure-like activities, no sick contacts from friends and family, unsure about at workplace, she did not notice any gait instability, no falls. She was seen by her PCP on Friday for confusion and since her basic blood work revealed elevated TSH of 5.3, she was changed back from the [place] Thyroid to Synthroid, which she did the prescription day before yesterday. In the ER, her vital signs were noted to be blood pressure 144/90 mmHg, pulse rate tachycardic with 102 per minute, respiratory rate 18 per minute, temperature 97.7, SpO2 98% on room air. Basic labs including CBC, WBC 7.1, hemoglobin 14.3 g/dL, hematocrit 42.8, platelets 213. BMP notable for sodium 134, potassium 4.5 mEq/L, chloride 100, CO2 24, glucose 213, creatinine 1.29, calcium 9.4. LFTs notable for ALT 66, AST 81, alkaline phosphatase 81, albumin 4, total bilirubin 0.4. INR 1.01, TSH 5.52, ammonia negative, lactate normal at 2.0. Urinalysis unremarkable, free T3 2.93, which is normal. An ABG was done at 3 a.m. on 05/23, which revealed a pH of 7.40, pCO2 40, PO2 73, bicarb 26. A CT of the brain without contrast was done, which was unremarkable. She is transferred here for further management of altered mental status. PAST MEDICAL HISTORY: 1. Type 2 diabetes mellitus, on metformin and Trulicity. 2. Hypertension. 3. Hyperlipidemia. 4. Hypothyroidism. PAST SURGICAL HISTORY: Laparoscopic cholecystectomy, appendectomy. CURRENT MEDICATIONS: 1. Aspirin 81 mg daily. 2. Metformin 1000 mg b.i.d. 3. Trulicity 1.5 mg subcutaneously weekly. 4. Biotin 1 mg daily. 5. Colestipol 2 g b.i.d. 6. Losartan 100 mg daily. 7. Metoprolol 100 mg b.i.d. 8. Potassium 99 mg orally daily. 9. Synthroid 88 mcg daily. DRUG ALLERGIES: She is allergic to Nubain. REVIEW OF SYSTEMS: Unable to be completed as the patient is lethargic and unresponsive. PHYSICAL EXAMINATION: VITAL SIGNS: Blood pressure of 170/90 mmHg; pulse rate 140 per minute, regular; respiratory rate 22 per minute; SpO2 99% on room air; temperature 100.4. GENERAL APPEARANCE: She is a moderately obese lady, unresponsive and lethargic. EYES: Bilateral pupils 3 mm equally reacting to light, extraocular movements intact, no conjunctival pallor or scleral icterus noted. NECK: Obese, no neck vein distention noted, no lymphadenopathy, no neck rigidity noted. HEART: S1, S2 heard, regular in rate and rhythm, tachycardic, no murmurs, rubs, or gallops, no S3/S4. LUNGS: Clear to auscultation both anterior and posterior lung reich. ABDOMEN: Obese, the patient moans to diffuse palpation of the abdomen, no guarding or rigidity, bowel sounds are active. NEUROLOGY: She is lethargic, unresponsive, motor movements noted to sternal rub. Bilateral pupils 3 mm equally reacting to light, extraocular movements intact, no neck rigidity, bilateral upper extremities in flexor posture, bilateral legs in extensor posture, bilateral Babinski negative, plantar withdrawal response. PERIPHERAL PULSES: 2+ bilateral radial, 2+ dorsalis pedis/posterior tibial. DIAGNOSTIC LABS AND TESTS: Reviewed. CT brain reviewed. ASSESSMENT AND PLAN: The patient is admitted in the step-down unit on 5AB, discussed with the MICU Team. Will move to MICU for close monitoring. 1. Altered mental status/lethargy. There were some bleeding spots noted in the tip of her tongue, Concerning for seizure. b. Discussed with Neurology. c. Stat video EEG monitoring. d. Start acyclovir 1 g IV t.i.d. e. Neuro checks every 4 hours. f. Continue IV fluids at 125 mL/hour. g. Repeat basic labs. h. Consult Neurology and MICU. i. Send flu PCR. *DVT prophylaxis. Hold for now as she is anticipated to get a lumbar puncture. *Seizure precautions. Plan discussed with the at bedside, MICU Team, Neurology, RN. Electronically Signed by: Oral Ortiz MD 05/25/2018 07:33 P Oral Ortiz MD Date Dict: 05/23/2018/11:43 A/Oral Ortiz MD Date Trans: 05/23/2018 12:23 P/mmo [id number] Normal [facility] LACTATE BLOODon 05-23-2018 Lactate molar conc 2.1 mmol/L Normal 0.5-2.2 [facility] Comment on above: Order Comment: No: D o not add to previous draw Performed By: #### 1 0054 #### [facility] [address] Operative Reporton 9 Operative Report MR#: [id number] I [facility] Pt. Name: Shabana Stallworth Room #: [facility] [id number] Discharge Date: Birthdate: 1960 OPERATIVE REPORT DATE OF SURGERY: 05/23/2018 SURGEON: Reg Rahman MD PROCEDURE NAME: Endotracheal intubation. INDICATION FOR PROCEDURE: Acute hypercapnic respiratory failure and altered mental status for airway protection. TIME OF PROCEDURE: 12 p.m. CONSENT: The procedure done as an emergent procedure. PROCEDURE IN DETAIL: The patient was placed in a dependent position for endotracheal intubation. The patient had sedation, which was achieved by etomidate 20, propofol 50, fentanyl 100, rocuronium 80. At that time, the Mac 3 was inserted into the patient's airway and there was a grade 1 view of the patient's vocal cord and the endotracheal tube was passed into the vocal cords and was seen going through the trachea. The stylet was removed and there was color change seen on the colorimetric meter. The patient was easily Ambu'd and then the vent was connected to the ET tube. Postprocedure chest x-ray was obtained and there was no pneumothorax and the ET tube was right. Electronically Signed by: Reg Rahman MD 05/26/2018 02:22 P Reg Rahman MD I was present for the entire procedure. Date Dict: 05/23/2018/05:10 P/Victor Manuel Dunlap MD Date Trans: 05/23/2018 09:22 P/eriko [id number] cc: Colt Boggs M.D. [address] [place] [address] [facility] [id number] Normal [facility] POC GLUCOSE LABon 05-23-2018 Glucose mass conc 184 mg/dL High 70-100 [facility] Comment on above: Performed By: #### 8 5499 #### [address] PORTABLE CHEST 1 VIEWon PORTABLE CHEST 1 VIEW [facility] Department of Radiology [address] [place] [id number] Patient Name: SHABANA STALLWORTH : 1960 Sex: F Age: Race: White Pt. Location: [place] [address] Patient Status: I Ordered Date: 05/23/2018 1:15:00 PM Completed Date: 05/23/2018 01:24 PM Requesting Provider: VICTOR MANUEL DUNLAP Attending Provider: REG RAHMAN Report Copy To: Signs & Symptoms: Post Intubation History: Patient history not available Comments: Check NG Tube Position, intubation Exam: PORTABLE CHEST 1 VIEW PORTABLE CHEST 1 VIEW 05/23/2018 1:24 PM EST SIGNS AND SYMPTOMS: Post Intubation TECHNOLOGIST COMMENTS: status post intubation check ET placement QUESTION FOR THE RADIOLOGIST: Check NG Tube Position, intubation PROTOCOL: AP(PA) view was obtained. COMPARISON: None FINDINGS: ET tube is seen with tip approximately 3.5 cm from the anastasiia, appropriately positioned. Enteric tube is seen coursing below the diaphragm with tip in the stomach. Can be advanced 10 to 15 cm. The trachea is midline. The cardiac silhouette is slightly enlarged, may be accentuated due to AP technique. There is a left retrocardiac opacity silhouetting left diaphragm, may represent atelectasis or pneumonia. Interstitial markings with increased vasculature seen, consistent with early pulmonary edema. No pleural effusion. No pneumothorax. Azygos fissure is seen, normal anatomic variant. No acute bony pathology. IMPRESSION: * ET tube appropriately positioned. * Enteric tube with tip in the stomach, can be advanced 10-15 cm for better positioning. * Left retrocardiac opacity is seen, may be atelectasis or pneumonia. * Increased vascular markings with possible mild cardiomegaly, consistent with early pulmonary edema. Approved by:Stormy ACEVEDO on 05/23/2018 1:48 PM EST. I, Jewel Barnett, have reviewed the images and report and concur with these findings. Electronically signed by:Jewel Barnett. Transcribed by: [email or web address], User Resident: STORMY ACEVEDO Electronically Signed by: JEWEL BARNETT @ 05/23/2018 08:48 PM I personally read this/these film(s) with this resident Normal [facility] Comment on above: Order Comment: Check NG Tube Position, intubation PROLACTINon 05-23-2018 Protein mass conc 6.23 ng/mL Normal 1.39-24.20 [facility] Comment on above: Performed By: #### 2 5508, 50686, 01263, 57742 #### [facility] [address] [place] [address], [facility] TSH3 WITH REFLEXon 9 T4 free mass conc 1.23 ng/dL Normal 0.71-1.85 [facility] Comment on above: Order Comment: No: D o not add to previous draw Performed By: #### 2 5508, 46946, 80564, 03829 #### [facility] [address] [place] [address], [facility] TSH 3RD GENERATION 1.62 uIU/mL Normal 0.34-5.60 [facility] Comment on above: Order Comment: No: D o not add to previous draw Performed By: #### 2 5508, 00796, 54669, 18034 #### [facility] [address] Vital Signs Date Time Vital Sign Value Performing Clinician Jakob tipton 05-30-2018 06:10-0500 Respiratory rate 12 /min COLT BOGGS [facility] Comment on above: Performed By: #### 2 5508, 24696, 78527, 54749 #### [facility] [address] [place] [address], [facility] 05-27-2018 06:54-0500 Respiratory rate 12 /min COLT BOGGS [facility] Comment on above: Performed By: #### 2 5508, 68420, 59892, 66184 #### [facility] [address] [place] [address], [facility] 05-26-2018 07:11-0500 Respiratory rate 12 /min COLT BOGGS [facility] Comment on above: Performed By: #### 8 5123 #### [facility] [address] [place] [address], [facility] 05-25-2018 06:37-0500 Respiratory rate 12 /min COLT BOGGS [facility] Comment on above: Performed By: #### 5 0103 #### [facility] [address] 05-24-2018 07:31-0500 Respiratory rate 12 /min COLT BOGGS [facility] Comment on above: Performed By: #### 3 1018 #### [facility] [address] 05-23-2018 18:54-0500 Respiratory rate 12 /min COLT BOGGS [facility] Comment on above: Performed By: #### 3 1018 #### [facility] [address] Encounters Encounter Date Encounter Type Care Provider Facility Start: 06-18-2023 End: 06-18-2023 ambulatory COLT BOGGS Not Available Start: 08-13-2022 End: 08-14-[address] COLT BOGGS . Facility: Start: 07-04-2022 End: 07-05-[address] COLT BOGGS . Facility:[facility] Start: 06-20-[address] COLT BOGGS . Fac ility:[facility] Start: 02-25-2022 End: 02-26-[address] COLT BOGGS . Facility: Start: 09-01-2021 End: 09-02-[address] COLT BOGGS . Facility: Start: 05-23-2018 End: 06-03-2018 Evaluation and management of inpatient COLT BOGGS Facility:[facility] Procedures Date Procedure Procedure Detail Performing Clinician Start: 05-25-2018 Drainage of Spinal C anal, Percutaneous Approach, Diagnostic EHAB A [place] Start: 05-25-2018 FLUOROSCOPY OF SPINAL CORD EHAB A [place] Start: 05-23-2018 INSERTION OF ENDOTRA CHEAL AIRWAY INTO TRACHEA, VIA OPENING REG RAHMAN Start: 05-23-2018 MEASURE OF ARTERIAL SATURATION, PERIPHERAL, PERC APPROACH MARC HAINES Start: 05-23-2018 MEASUREMENT OF CAUL FAT PULLER E LECTR ACTIVITY, TECHNICAL APPLICATIONS SPECIALIST APPROACH MARIBEL MARINELLI Start: 05-23-2018 MONITORING OF CAUL FAT PULLER EL [employer] ACTIVITY, TECHNICAL APPLICATIONS SPECIALIST APPROACH MARIBEL MARINELLI Start: 05-23-2018 RESPIRATORY VENTILAT ION, GREATER THAN 96 CONSECUTIVE HOURS REG [facility] Payers Date Payer Category Payer Medicaid [id number] 1960 Unknown [id number] 2.16.8 [id number] 1960 Unknown [id number] 2.16.84 [id number] 1960 Unknown [id number] 2.16.84 [id number] 1960 Unknown [id number] 2.16.84 [id number] 1962 Unknown [id number] 2.16.84 [id number] 1962 Unknown [id number] 2.16.84 [id number] 1962 Unknown [id number] 2.16.84 [id number] 1959 Unknown [id number] 1959 Unknown [id number] Summary Purpose Family History No Family History Records FoundNo Family History Records FoundNo Family History Records Found Advance Directives No Advanced Directives Records FoundNo Advanced Directives Records FoundNo Advanced Directives Records Found Hospital Course Note MR#: [id number] [facility] Pt. Name: Shabana Stallworth Admitted: 05/23/2018 Discharged: 06/03/2018 Date of : 1960 Physician: Devin Arroyo M.D. DISCHARGE SUMMARY PRIMARY CARE PHYSICIAN: Dr. Colt Boggs. PRINCIPAL DIAGNOSES: 1. Acute encephalopathy, etiology unclear, improving. 2. Acute respiratory failure status post intubation, resolved. 3. Seizure. 4. 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 5. Diabetes, type 2. SECONDARY DIAGNOSES: 1. Hypertension. 2. Dyslipidemia. CONSULTATION: During hospitalization; MICU consulted, Neurology consulted, Endocrinology consulted, PMR consulted. PROCEDURES: The patient to be intubated and extubated during MICU. The patient had an EEG done. PHYSICAL EXAMINATION: Today; GENERAL: Comfortable, in no acute distress. Awake, alert, and oriented x3. HEENT: PERRLA. NECK: Supple. RESPIRATORY: Lung sounds clear. No wheezes. Nonlabored. HEART: S1 and S2. ABDOMEN: Soft. NEUROLOGICAL: Oriented x3. No focal deficit. PSYCH (more content not included)... Additional Source Comments INFORMATION SOURCE (unrecogn ized section and content) DATE CREATED AUTHOR 07/07/2018 [facility] DATE CREATED AUTHOR AUTHOR'S ORGANIZ ATION 08/20/2022 [facility] DATE CREATED AUTHOR AUTHOR'S ORGANIZ ATION 06/19/2023 [facility] FOR RECORDS PERTAINING TO PATIENTS WHO ARE OR HAVE BEEN ENROLLED IN A CHEMICAL DEPENDENCY/SUBSTANCEABUSE PROGRAM, SOME INFORMATION MAY BE OMITTED. This clinical summary was aggregated from multiple sources. Caution should be exercised in using it in the provision of clinical care. This summary normalizes information from multiple sources, and as a consequence, information in this document may materially change the coding, format and clinical context of patient data. In addition, data may be omitted in some cases. CLINICAL DECISIONS SHOULD BE BASED ON THE PRIMARY CLINICAL RECORDS. [employer] provides no warranty or guarantee of the accuracy or completeness of information in this document.
[2023-10-07 11:17] LABS: Estimated Average Glucose 131 mg/dL; Glycohemoglobin A1C 6.2 % (4.5-6.2)
== END 2023-10-07 10:30 | disposition home or self-care (01) ==
LOC: LAB 10:30
PROVIDERS: PCP Family Medicine; Visit Provider Family Medicine
DX: E11.22 Type 2 diabetes mellitus with diabetic chronic kidney disease (principal); N18.31 Chronic kidney disease, stage 3a
CPT/HCPCS: 36415; 83036

== ENCOUNTER 2024-01-13 08:06 | Outpatient (OUT) | payer MEDICAID, SELFPAY ==
--- OUTSIDE RECORDS SUMMARY | 2024-01-13 08:28 | XMS_ITS | CCD ---
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 Name Role Phone COTL BOGGS Referring Unavailable HEMEYER, COLT Primary Care Unavailable RENNO, ANAS Attending Unavailable RENNO, ANAS Admitting Unavailable [place] Procedure Practitioner Unavailab REG Molina Surgeon Unavailable [place] Procedure Practitioner Unavailab MARIBEL Richardson Surgeon Unavail able [place] Procedure Practitioner Unavailab TK Ha A Surgeon Unavailable [place] Procedure Practitioner Unavailab le UNKNOWN, PROVIDER Surgeon [...] Unavailable HEMEYER ., DR DALEY Attending Unavailable ALEKSYERCOLT J Attending Unavailable HEMEYERCOLT J Attending Unavailable HEMEYERCOLT Attending Unavailable HEMEYER, COLT J Referring Unavailable Allergies Allergy Classification Reported Allergen(s) Allergy Type Date of Onset Reaction(s) Facility (2 sources) Nalbuphine Drug Allergy 09-13-2013 [facility] Problems Problem Classification Problem Date Documented [...] Onset: 07-04-2022 Chronic Other aftercare (1 source) [facility] (current) use of aspirin; Translations: [[facility] (CURRENT) USE OF ASPIRIN] Onset: 05-23-2018 Episodic Other aftercare (1 source) [facility] (current) use of oral hypoglycemic drugs; 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 The complete report is available in the patient's medical record. If you cannot access the medical record, please contact the sending organization for a detailed fax or copy. Examination: BI MAMMOGRAM SCREENING TOMOSYNTHESIS BILATERAL Clinical History: screen breast ca Technique: Screening digital mammography study of both breasts was performed with 2-D and 3-D tomosynthesis imaging. Study was compared to the prior exam dated 02/26/2019 Findings: Scattered areas of fibroglandular density are noted bilaterally. There is no evidence of interval dominant spiculated mass, grouped microcalcifications or skin thickening which would be suggestive of malignancy. Mild scattered benign-appearing calcifications noted bilaterally. Stable benign-appearing nodular density in the upper outer portion of the left breast. Axillary lymph nodes are noted bilaterally. IMPRESSION: Impression: No specific evidence of malignancy seen in either breast. BI-RADS 2 Breast Density: There are scattered areas of fibroglandular density BiRads: BIRADS 2 - Benign Recommended follow-up: Routine Screening Mamm ELECTRONICALLY SIGNED BY: Ray Castillo M.D. Normal Not Available GLYCOHEMOGLOBIN A1Con 2022 ADA RECOMMENDATION SEE BELOW Normal [facility] Comment on above: Result Comment: ADA RECOMMENDED LIMIT 4.0 - 6.0 ADA THERAPEUTIC TARGET < 7.0 ACTION SUGGESTED > 7.0 Performed By: #### A 1C #### [facility] [address], [place] [address] Dr. Veronica Floyd Glucose [Mass/Vol] 160 mg/dL Normal [facility] Comment on above: Performed By: #### A 1C #### [facility] [address] [place], [place] [address] Dr. Veronica Floyd HbA1c (Bld) [Mass fraction] 7.2 % Critically high 4.5-6.2 [facility] Comment on above: Performed By: #### A 1C #### [facility] [address] [place] [address] [address] Veronica Floyd FREE T3on 07-04-2022 FREE T3 2.59 pg/mlL Normal 2.18-3.98 [facility] Comment on above: Performed By: #### T SH, FT3 #### [facility] [address] [place] [address] Dr. Veronica Floyd FREE T4on 07-04-2022 Free T4 [Mass/Vol] 1.25 ng/dL Normal 0.76-1.46 [facility] Comment on above: Performed By: #### F T4 #### [facility] [address] [place] [address] Dr. Veronica Floyd TSHon 07-04-2022 TSH 3.607 uIU/mL Normal 0.358-3.740 [facility] Comment on above: Performed By: #### T SH, FT3 #### [facility] [address] [place] [address] Dr. Veronica Floyd GLYCOHEMOGLOBIN A1Con 2021 ADA RECOMMENDATION SEE BELOW Normal [facility] Comment on above: Result Comment: ADA RECOMMENDED LIMIT 4.0 - 6.0 ADA THERAPEUTIC TARGET < 7.0 ACTION SUGGESTED > 7.0 Performed By: #### A 1C #### [facility] [address] [place] [address] Dr. Veronica Floyd Glucose [Mass/Vol] 154 mg/dL Normal [facility] Comment on above: Performed By: #### A 1C #### [facility] [address] [place] [address] Dr. Veronica Floyd HbA1c (Bld) [Mass fraction] 7.0 % Critically high 4.5-6.2 [facility] Comment on above: Performed By: #### A 1C #### [facility] [address] [place] [address] Dr. Veronica Floyd LIPID PROFILEon 02-25-2022 CHOL-HDL RATIO NORM SEE BELOW Normal [facility] Comment on above: Result Comment: 3.3 - 4.4 LOW RISK 4.4 - 7.1 AVERAGE RISK 7.1 - 11.0 MODERATE RISK >11.0 HIGH RISK Performed By: #### C MP, LIPID #### [facility] [address] [address] [address] Veronica Floyd Cholesterol [Mass/Vol] 173 mg/dL Normal <=200 [facility] Comment on above: Performed By: #### C MP, LIPID #### [facility] [address] [address] [address] Veronica Floyd Cholesterol in HDL [Mass/Vol] 44 mg/dL Normal 40-60 [facility] Comment on above: Performed By: #### C MP, LIPID #### [facility] [address] [address] [address] Veronica Floyd Cholesterol in LDL [Mass/Vol] 114.6 mg/dL Normal [facility] Comment on above: Performed By: #### C MP, LIPID #### [facility] [address] [address] [address] Veronica Floyd Cholesterol.total/ Cholesterol in HDL [Mass ratio] 3.9 {ratio} Normal [facility] Comment on above: Performed By: #### C MP, LIPID #### [facility] [address] [address] [address] Veronica Floyd HDL NORMAL > or = 60 mg/dl - LO W CARDIOVASCULAR RISK <40 mg/dl - HIGH CARDIOVASCULAR RISK Normal [facility] Comment on above: Performed By: #### C MP, LIPID #### [facility] [address] [address] [address] Veronica Floyd LDL CALC NORMAL SEE BELOW Normal [facility] Comment on above: Result Comment: <100 mg/dl OPTIMAL 100 - 129 mg/dl NEAR OR ABOVE OPTIMAL 130 - 159 mg/dl BORDERLINE HIGH 160 - 189 mg/dl HIGH >190 mg/dl VERY HIGH Performed By: #### C MP, LIPID #### [facility] [address] [address] [address] Veronica Floyd Triglyceride [Mass/Vol] 72 mg/dL Normal <=150 [facility] Comment on above: Performed By: #### C MP, LIPID #### [facility] [address] [place] [address] Dr. Veronica Floyd VLDL CALC 14.4 mg/dL Normal [facility] Comment on above: Performed By: #### C MP, LIPID #### [facility] [address] [place] [address] Dr. Veronica Floyd PROF 14(COMP METB)on 02-25- 022 Albumin [Mass/Vol] 4.0 g/dL Normal 3.4-5.0 [facility] Comment on above: Performed By: #### C MP, LIPID #### [facility] [address] [place] [address] Dr. Veronica Floyd Albumin/Globulin [Mass ratio] 1.0 {ratio} Normal [facility] Comment on above: Performed By: #### C MP, LIPID #### [facility] [address] [place] [address] Dr. Veronica Floyd ALP [Catalytic activity/Vol] 53 U/L Normal 46-116 [facility] Comment on above: Performed By: #### C MP, LIPID #### [facility] [address] [place] [address] Dr. Veronica Floyd ALT [Catalytic activity/Vol] 45 U/L Normal 14-59 [facility] Comment on above: Performed By: #### C MP, LIPID #### [facility] [address] [place] [address] Dr. Veronica Floyd Anion gap [Moles/Vol] 9.8 mmol/L Normal [facility] Comment on above: Performed By: #### C MP, LIPID #### [facility] [address] [place] [address] Dr. Veronica Floyd AST [Catalytic activity/Vol] 23 U/L Normal 15-37 [facility] Comment on above: Performed By: #### C MP, LIPID #### [facility] [address] [place] [address] Dr. Veronica Floyd Bilirubin [Mass/Vol] 0.3 mg/dL Normal 0.2-1.0 [facility] Comment on above: Performed By: #### C MP, LIPID #### [facility] [address] [place] [address] Dr. Veronica Floyd Calcium [Mass/Vol] 9.5 mg/dL Normal 8.5-10.1 [facility] Comment on above: Performed By: #### C MP, LIPID #### [facility] [address] [place] [address] Dr. Veronica Floyd Chloride [Moles/Vol] 101 mmol/L Normal 98-107 [facility] Comment on above: Performed By: #### C MP, LIPID #### [facility] [address] [place] [address] Dr. Veronica Floyd CO2 [Moles/Vol] 28.4 mmol/L Normal 21.0-32.0 [facility] Comment on above: Performed By: #### C MP, LIPID #### [facility] [address] [place] [address] Dr. Veronica Floyd Creatinine [Mass/Vol] 0.90 mg/dL Normal 0.55-1.02 [facility] Comment on above: Performed By: #### C MP, LIPID #### [facility] [address] [place] [address] Dr. Veronica Floyd EGFR-AF HAITIAN >60 Normal >=60 [facility] Comment on above: Performed By: #### C MP, LIPID #### [facility] [address] [place] [address] Dr. Veronica Floyd EGFR-NON AF HAITIAN >60 Normal >=60 [facility] Comment on above: Performed By: #### C MP, LIPID #### [facility] [address] [place] [address] Dr. Veronica Floyd Globulin (S) [Mass/Vol] 4.1 g/dL Normal [facility] Comment on above: Performed By: #### C MP, LIPID #### [facility] [address] [place] [address] Dr. Veronica Floyd Glucose [Mass/Vol] 136 mg/dL Critically high 74-106 T [facility] [place] Comment on above: Performed By: #### C MP, LIPID #### [facility] [address] [place] [address] Dr. Veronica Floyd Potassium [Moles/Vol] 4.2 mmol/L Normal 3.5-5.1 [facility] Comment on above: Performed By: #### C MP, LIPID #### [facility] [address] [place] [address] Dr. Veronica Floyd Protein [Mass/Vol] 8.1 g/dL Normal 6.4-8.2 [facility] Comment on above: Performed By: #### C MP, LIPID #### [facility] [address] [place] [address] Dr. Veronica Floyd Sodium [Moles/Vol] 135 mmol/L Critically low 136-145 Th [facility] Comment on above: Performed By: #### C MP, LIPID #### [facility] [address] [place] [address] Dr. Veronica Floyd Urea nitrogen [Mass/Vol] 18.0 mg/dL Normal 7.0-18.0 [facility] Comment on above: Performed By: #### C MP, LIPID #### [facility] [address] [place] [address] Dr. Veronica Floyd Urea nitrogen/Creatinin e [Mass ratio] 20.0 mg/mg Normal [facility] Comment on above: Performed By: #### C MP, LIPID #### [facility] [address] [place] [address] Dr. Veronica Floyd GLYCOHEMOGLOBIN A1Con 2021 ADA RECOMMENDATION SEE BELOW Normal [facility] Comment on above: Result Comment: ADA RECOMMENDED LIMIT 4.0 - 6.0 ADA THERAPEUTIC TARGET < 7.0 ACTION SUGGESTED > 7.0 Performed By: #### A 1C #### [facility] [address] [place] [address] Dr. Veronica Floyd Glucose [Mass/Vol] 137 mg/dL Normal [facility] Comment on above: Performed By: #### A 1C #### [facility] [address] [place] [address] Dr. Veronica Floyd HbA1c (Bld) [Mass fraction] 6.4 % Critically high 4.5-6.2 [facility] Comment on above: Performed By: #### A 1C #### [facility] [address] [place], [place] [address] Dr. Veronica Floyd BASIC METABOLIC PANELon 02-2 Calcium mass conc 9.5 mg/dL Normal 8.6-10.3 [facility] Comment on above: Order Comment: No: D o not add to previous draw Performed By: #### 3 1018 #### [facility] [address] [place] [address], [place] Chloride molar conc 102 mmol/L Normal 98-107 [facility] Comment on above: Order Comment: No: D o not add to previous draw Performed By: #### 3 1018 #### [facility] [address] [place] [address], [place] CO2 molar conc 30 mmol/L Normal 21-31 [facility] Comment on above: Order Comment: No: D o not add to previous draw Performed By: #### 3 1018 #### [facility] [address] [place] [address], [place] Creatinine mass conc 1.14 mg/dL Normal 0.60-1.20 [facility] Comment on above: Order Comment: No: D o not add to previous draw Performed By: #### 3 1018 #### [facility] [address] [place] [address], [place] GFR/1.73 sq M predicted among blacks MDRD vol rate/area (S/P/Bld) 59 ml/min/1.73sq m Abnormal >60 [facility] Comment on above: Order Comment: No: D o not add to previous draw Performed By: #### 3 1018 #### [facility] [address] [place] [address], [place] GFR/1.73 sq M predicted among non-blacks MDRD vol rate/area (S/P/Bld) 49 ml/min/1.73sq m Abnormal >60 [facility] Comment on above: Order Comment: No: D o not add to previous draw Performed By: #### 3 1018 #### [facility] [address] [place] [address], [facility] Glucose mass conc 132 mg/dL High 70-100 [facility] Comment on above: Order Comment: No: D o not add to previous draw Performed By: #### 3 1018 #### [facility] [address] [place] [address], [place] Potassium molar conc 3.8 mmol/L Normal 3.5-5.1 [facility] Comment on above: Order Comment: No: D o not add to previous draw Performed By: #### 3 1018 #### [facility] [address] [place] [address], [place] Sodium molar conc 141 mmol/L Normal 136-145 [facility] Comment on above: Order Comment: No: D o not add to previous draw Performed By: #### 3 1018 #### [facility] [address] [place] [address], [place] Urea nitrogen mass conc 28 mg/dL High 7-25 [facility] Comment on above: Order Comment: No: D o not add to previous draw Performed By: #### 3 1018 #### [facility] [address] [place] [address], [facility] CBC COMPLETE BLOOD COUNTon 0 - Erythrocyte distribution width Ratio (RBC) 14.6 % Normal 11.5-15.0 [facility] Comment on above: Order Comment: No: D o not add to previous draw Performed By: #### 3 1018 #### [facility] [address] [place] [address], [place] Hematocrit Volume Fraction (Bld) 39.7 % Normal 36.0-45.0 [facility] Comment on above: Order Comment: No: D o not add to previous draw Performed By: #### 3 1018 #### [facility] [address] Hemoglobin mass conc (Bld) 12.8 g/dL Normal 12.0-15.0 [facility] Comment on above: Order Comment: No: D o not add to previous draw Performed By: #### 3 1018 #### [facility] [address] [place] [address], [facility] MCH Entitic mass (RBC) 27.9 pg Normal 27.0-33.0 [facility] Comment on above: Order Comment: No: D o not add to previous draw Performed By: #### 3 1018 #### [facility] [address] [place] [address], [facility] MCHC mass conc (RBC) 32.2 g/dL Normal 32.0-35.0 [facility] Comment on above: Order Comment: No: D o not add to previous draw Performed By: #### 3 1018 #### [facility] [address] MCV Entitic volume (RBC) 86.7 fL Normal 82.0-98.0 [facility] Comment on above: Order Comment: No: D o not add to previous draw Performed By: #### 3 1018 #### [facility] [address] [facility] [address] Nucleated RBC/100 WBC Ratio (Bld) 0 % Normal 0-0 [facility] Comment on above: Order Comment: No: D o not add to previous draw Performed By: #### 3 1018 #### [facility] [address] [place] [address], [facility] PLAT CNT 256 10*3/uL Normal 150-400 [facility] Comment on above: Order Comment: No: D o not add to previous draw Performed By: #### 3 1018 #### [facility] [address] [place] [address], [facility] RBC #/vol (Bld) 4.58 10*6/uL Normal 3.80-5.00 [facility] Comment on above: Order Comment: No: D o not add to previous draw Performed By: #### 3 1018 #### [facility] [address] WBC #/vol (Bld) 5.70 10*3/uL Normal 4.00-10.60 [facility] Comment on above: Order Comment: No: D o not add to previous draw Performed By: #### 3 1018 #### [facility] [address] IMMUNOGLOB BLon 06-03-2018 IgA mass conc 364 mg/dL Normal 60-413 [facility] Comment on above: Order Comment: No: D o not add to previous draw Performed By: #### 3 1018 #### [facility] [address] IgG mass conc 1180 mg/dL Normal 591-1540 [facility] Comment on above: Order Comment: No: D o not add to previous draw Performed By: #### 3 1018 #### [facility] [address] IgM mass conc 187 mg/dL Normal 54-285 [facility] Comment on above: Order Comment: No: D o not add to previous draw Performed By: #### 3 1018 #### [facility] [address] [facility] [address] IMMUNOGLOBULIN Andrea 9 [place] Normal [facility] Comment on above: Order Comment: No: D o not add to previous draw IMMUNOGLOBULIN E 230 IU/mL High <101 [facility] Comment on above: Order Comment: No: D o not add to previous draw POC GLUCOSE LABon 06-03-2018 Glucose mass conc 250 mg/dL High 70-100 [facility] Comment on above: Performed By: #### 3 1018 #### [facility] [address] [place] [address], [facility] Glucose mass conc 254 mg/dL High 70-100 [facility] Comment on above: Performed By: #### 3 1018 #### [facility] [address] [place] [address], [place] Glucose mass conc 131 mg/dL High 70-100 [facility] Comment on above: Performed By: #### 3 1018 #### [facility] [address] [place] [address], [place] Glucose mass conc 117 mg/dL High 70-100 [facility] Comment on above: Performed By: #### 3 1018 #### [facility] [address] [place] [address], [facility] BASIC METABOLIC PANELon - Calcium mass conc 9.4 mg/dL Normal 8.6-10.3 [facility] Comment on above: Order Comment: No: D o not add to previous draw Performed By: #### 3 1018 #### [facility] [address] [place] [address], [place] Chloride molar conc 97 mmol/L Low 98-107 [facility] Comment on above: Order Comment: No: D o not add to previous draw Performed By: #### 3 1018 #### [facility] [address] [place] [address], [place] CO2 molar conc 30 mmol/L Normal 21-31 [facility] Comment on above: Order Comment: No: D o not add to previous draw Performed By: #### 3 1018 #### [facility] [address] [place] [address], [place] Creatinine mass conc 1.15 mg/dL Normal 0.60-1.20 [facility] Comment on above: Order Comment: No: D o not add to previous draw Performed By: #### 3 1018 #### [facility] [address] [place] [address], [place] GFR/1.73 sq M predicted among blacks MDRD vol rate/area (S/P/Bld) 59 ml/min/1.73sq m Abnormal >60 [facility] Comment on above: Order Comment: No: D o not add to previous draw Performed By: #### 3 1018 #### [facility] [address] [place] [address], [place] GFR/1.73 sq M predicted among non-blacks MDRD vol rate/area (S/P/Bld) 49 ml/min/1.73sq m Abnormal >60 [facility] Comment on above: Order Comment: No: D o not add to previous draw Performed By: #### 3 1018 #### [facility] [address] [place] [address], [facility] Glucose mass conc 172 mg/dL High 70-100 [facility] Comment on above: Order Comment: No: D o not add to previous draw Performed By: #### 3 1018 #### [facility] [address] [place] [address], [place] Potassium molar conc 2.9 mmol/L Low 3.5-5.1 [facility] Comment on above: Order Comment: No: D o not add to previous draw Performed By: #### 3 1018 #### [facility] [address] [place] [address], [place] Sodium molar conc 138 mmol/L Normal 136-145 [facility] Comment on above: Order Comment: No: D o not add to previous draw Performed By: #### 3 1018 #### [facility] [address] [place] [address], [place] Urea nitrogen mass conc 24 mg/dL Normal 7-25 [facility] Comment on above: Order Comment: No: D o not add to previous draw Performed By: #### 3 1018 #### [facility] [address] [place] [address], [place] HEMOGLOBIN A1Con 06-02-2018 Hemoglobin A1c/Hemoglobin.tot al mass fraction (Bld) 7.1 % High 4.0-6.0 [facility] Comment on above: Order Comment: Yes: Add to Previous draw if able Performed By: #### 3 1018 #### [facility] [address] [place] [address], [facility] Hemoglobin A1c/Hemoglobin.tot al mass fraction (Bld) 157 mg/dL High 70-126 [facility] Comment on above: Order Comment: Yes: Add to Previous draw if able Performed By: #### 3 1018 #### [facility] [address] [place] [address], [facility] MAGNESIUM BLOODon 06-02-2018 Magnesium mass conc 2.5 mg/dL Normal 1.9-2.7 [facility] Comment on above: Performed By: #### 3 1018 #### [facility] [address] [facility] [address] MISCELLANEOUS PATHon 019 RESULT Results faxed to [facility] and sent to HIM Normal [facility] Comment on above: Order Comment: [facility]# [id number] ALLERGEN, FOOD, ALPHA-Gal PANEL CPT 68571 X4 Result Comment: Test performed at [facility], [address] [place] [id number]. Results faxed to Dr. Arroyo at [phone] Performed By: #### 3 1018 #### [facility] [address] [facility] [place] [address], [facility] POC GLUCOSE LABon 06-02-2018 Glucose mass conc 243 mg/dL High 70-100 [facility] Comment on above: Performed By: #### 3 1018 #### [facility] [address] [facility] [place] [address], [facility] Glucose mass conc 236 mg/dL High 70-100 [facility] Comment on above: Performed By: #### 3 1018 #### [facility] [address] [place] [address], [facility] [facility] Glucose mass conc 154 mg/dL High 70-100 [facility] Comment on above: Performed By: #### 3 1018 #### [facility] [address] [place] [address], [facility] Glucose mass conc 215 mg/dL High 70-100 [facility] Comment on above: Performed By: #### 3 1018 #### [facility] [address] [place] [address], [facility] BASIC METABOLIC PANELon - Calcium mass conc 9.5 mg/dL Normal 8.6-10.3 [facility] Comment on above: Order Comment: No: D o not add to previous draw Performed By: #### 3 1018 #### [facility] [address] [place] [address], [facility] Chloride molar conc 95 mmol/L Low 98-107 [facility] Comment on above: Order Comment: No: D o not add to previous draw Performed By: #### 3 1018 #### [facility] [address] [place] [address], [facility] CO2 molar conc 30 mmol/L Normal 21-31 [facility] Comment on above: Order Comment: No: D o not add to previous draw Performed By: #### 3 1018 #### [facility] [address] [place] [address], [facility] Creatinine mass conc 0.78 mg/dL Normal 0.60-1.20 [facility] Comment on above: Order Comment: No: D o not add to previous draw Performed By: #### 3 1018 #### [facility] [address] [place] [address], [facility] GFR/1.73 sq M predicted among blacks MDRD vol rate/area (S/P/Bld) mL/min/{1.73_m2} Normal >60 [facility] Comment on above: Order Comment: No: D o not add to previous draw Performed By: #### 3 1018 #### [facility] [address] [place] [address], [facility] GFR/1.73 sq M predicted among non-blacks MDRD vol rate/area (S/P/Bld) mL/min/{1.73_m2} Normal >60 [facility] Comment on above: Order Comment: No: D o not add to previous draw Performed By: #### 3 1018 #### [facility] [address] [place] [address], [facility] Glucose mass conc 160 mg/dL High 70-100 [facility] Comment on above: Order Comment: No: D o not add to previous draw Performed By: #### 3 1018 #### [facility] [address] [place] [address], [facility] Potassium molar conc 3.1 mmol/L Low 3.5-5.1 [facility] Comment on above: Order Comment: No: D o not add to previous draw Performed By: #### 3 1018 #### [facility] [address] [place] [address], [facility] Sodium molar conc 138 mmol/L Normal 136-145 [facility] Comment on above: Order Comment: No: D o not add to previous draw Performed By: #### 3 1018 #### [facility] [address] [place] [id number], [facility] Urea nitrogen mass conc 16 mg/dL Normal 7-25 [facility] Comment on above: Order Comment: No: D o not add to previous draw Performed By: #### 3 1018 #### [facility] [address] [place] [id number], [facility] CBC W/DIFFon 06-01-2018 ABS BASOPHILS 0.0 10*3/uL Normal 0.0-0.2 [facility] Comment on above: Order Comment: No: D o not add to previous draw Performed By: #### 2 5508, 98034, 76031, 53363 #### [facility] [address] [place] [address], [facility] ABS IMM GRANS 0.1 10*3/uL Normal 0.0-0.2 [facility] Comment on above: Order Comment: No: D o not add to previous draw Performed By: #### 2 5507, 18022, 91206, 26428 #### [facility] [address] [place] [address], [facility] ABS NEUTROPHILS 5.1 10*3/uL Normal 1.6-7.6 [facility] Comment on above: Order Comment: No: D o not add to previous draw Performed By: #### 2 5507, , 09666, 60953 #### [facility] [address] [place] [address], [facility] Basophils #/vol (Bld) 0.5 % Normal 0.0-1.0 [facility] Comment on above: Order Comment: No: D o not add to previous draw Performed By: #### 2 5507, 80303, 90847, 20705 #### [facility] [address] [facility] [place] [address], [facility] Eosinophils #/vol (Bld) 0.0 10*3/uL Normal 0.0-0.5 [facility] Comment on above: Order Comment: No: D o not add to previous draw Performed By: #### 2 5507, 07377, 71870, 27177 #### [facility] [address] [facility] [place] [address], [facility] Eosinophils/100 WBC (Bld) 0.1 % Normal 0.0-6.0 [facility] Comment on above: Order Comment: No: D o not add to previous draw Performed By: #### 2 5507, 47135, 06443, 65200 #### [facility] [address] [place] [address], [facility] Erythrocyte distribution width Ratio (RBC) 14.4 % Normal 11.5-15.0 [facility] Comment on above: Order Comment: No: D o not add to previous draw Performed By: #### 2 550, 30778, 36232, 98560 #### [facility] [address] Hematocrit Volume Fraction (Bld) 39.8 % Normal 36.0-45.0 [facility] Comment on above: Order Comment: No: D o not add to previous draw Performed By: #### 2 5507, 08701, 22229, 21085 #### [facility] [address] [place] [address], [facility] Hemoglobin mass conc (Bld) 13.4 g/dL Normal 12.0-15.0 [facility] Comment on above: Order Comment: No: D o not add to previous draw Performed By: #### 2 5507, 22842, 60761, 62352 #### [facility] [address] IMMATURE GRANS 1.6 % High 0.0-1.0 [facility] Comment on above: Order Comment: No: D o not add to previous draw Performed By: #### 2 550, 09827, 28162, 85411 #### [facility] [address] [place] [address], [facility] Lymphocytes #/vol (Bld) 1.7 10*3/uL Normal 1.2-4.0 [facility] Comment on above: Order Comment: No: D o not add to previous draw Performed By: #### 2 550, 57238, 27929, 71383 #### [facility] [address] [place] [id number], [facility] Lymphocytes/100 WBC (Bld) 22.3 % Normal 20.0-45.0 [facility] Comment on above: Order Comment: No: D o not add to previous draw Performed By: #### 2 550, 10992, 03913, 82089 #### [facility] [address] MCH Entitic mass (RBC) 27.7 pg Normal 27.0-33.0 [facility] Comment on above: Order Comment: No: D o not add to previous draw Performed By: #### 2 8, 66792, 23364, 36080 #### [facility] [address] [place] [id number], [facility] MCHC mass conc (RBC) 33.7 g/dL Normal 32.0-35.0 [facility] Comment on above: Order Comment: No: D o not add to previous draw Performed By: #### 2 5507, 89281, 20386, 30476 #### [facility] [address] [place] [address], [facility] MCV Entitic volume (RBC) 82.4 fL Normal 82.0-98.0 [facility] Comment on above: Order Comment: No: D o not add to previous draw Performed By: #### 2 550, 89570, 26344, 20571 #### [facility] [address] [place] [address], [facility] Monocytes #/vol (Bld) 0.7 10*3/uL Normal 0.1-1.0 [facility] Comment on above: Order Comment: No: D o not add to previous draw Performed By: #### 2 5507, 26554, 43313, 24882 #### [facility] [address] [place] [address], [facility] MONOS 8.7 % Normal 5.0-12.0 [facility] Comment on above: Order Comment: No: D o not add to previous draw Performed By: #### 2 550, 40442, 38772, 54227 #### [facility] [address] [place] [address], [facility] Neutrophils/100 WBC (Bld) 66.8 % Normal 40.0-72.0 [facility] Comment on above: Order Comment: No: D o not add to previous draw Performed By: #### 2 5508, 77364, 25912, 45562 #### [facility] [address] [place] [address], [facility] Nucleated RBC/100 WBC Ratio (Bld) 0 % Normal 0-0 [facility] Comment on above: Order Comment: No: D o not add to previous draw Performed By: #### 2 5508, 67852, 33782, 72094 #### [facility] [address] [place] [address], [facility] PLAT CNT 293 10*3/uL Normal 150-400 [facility] Comment on above: Order Comment: No: D o not add to previous draw Performed By: #### 2 5508, 31699, 79511, 15675 #### [facility] [address] [place] [address], [facility] RBC #/vol (Bld) 4.83 10*6/uL Normal 3.80-5.00 [facility] Comment on above: Order Comment: No: D o not add to previous draw Performed By: #### 2 5508, 87994, 74079, 21771 #### [facility] [address] [place] [address], [place] WBC #/vol (Bld) 7.70 10*3/uL Normal 4.00-10.60 [facility] Comment on above: Order Comment: No: D o not add to previous draw Performed By: #### 2 5508, 67378, 12857, 60580 #### [facility] [address] [place] [address], [facility] EEG Reporton 06-01-2018 EEG Report Name: Shabana Stallworth [facility] MR#: [id number] Age: 58 Physician: Colt Boggs M.D. 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 EEG DURATION: 23:33 and 0 [...] push button event. Electronically Signed by: Raghu aMtson MD 06/02/2018 09:51 P Raghu Matson MD Date Dict: 05/31/2018/10:33 Dipak/Raghu Matson MD Date Trans: 06/01/2018 05:26 Dipak/luis e [id number] cc: Colt Boggs M.D. [address] [place] [address] B [facility] [address] Normal [facility] MAGNESIUM BLOODon 06-01-2018 Magnesium mass conc 2.3 mg/dL Normal 1.9-2.7 [facility] Comment on above: Performed By: #### 2 5508, 07341, 12972, 03187 #### [facility] [address] [place] [address], [facility] POC GLUCOSE LABon 06-01-2018 Glucose mass conc 332 mg/dL High 70-100 [facility] Comment on above: Performed By: #### 3 1018 #### [facility] [address] [facility] [place] [address], [place] Glucose mass conc 224 mg/dL High 70-100 [facility] Comment on above: Performed By: #### 3 1018 #### [facility] [address] [facility] [place] [address], [place] Glucose mass conc 156 mg/dL High 70-100 [facility] Comment on above: Performed By: #### 2 5508, 17839, 08652, 69089 #### [facility] [address] [place] [address], [place] Glucose mass conc 216 mg/dL High 70-100 [facility] Comment on above: Performed By: #### 2 5508, 15136, 02422, 95786 #### [facility] [address] [place] [address], [place] *C DIFF DNA AMPLIFICATIONon 05-31-2018 *C DIFF DNA AMPLIFICATION Clinical Report: (D) Specimen: [id number] Collected: 05/31/2018 13:15 Status: Final Last Updated: 05/31/2018 17:23 (1) No: Do not add to previous draw CDT DNA: (Final) Negative Normal [facility] Comment on above: Order Comment: No: D o not add to previous draw Performed By: #### 2 5508, 98078, 15623, 17913 #### [facility] [address] [place] [address], [place] BASIC METABOLIC PANELon 05-15 Calcium mass conc 9.0 mg/dL Normal 8.6-10.3 [facility] Comment on above: Order Comment: No: D o not add to previous draw Performed By: #### 2 5508, 16767, 84947, 36085 #### [facility] [address] [place] [address], [place] Chloride molar conc 97 mmol/L Low 98-107 [facility] Comment on above: Order Comment: No: D o not add to previous draw Performed By: #### 2 8, 82305, 08203, 91815 #### [facility] [address] [place] [address], [place] CO2 molar conc 32 mmol/L High 21-31 [facility] Comment on above: Order Comment: No: D o not add to previous draw Performed By: #### 2 8, 26822, 80785, 70627 #### [facility] [address] [place] [id number], [facility] Creatinine mass conc 0.60 mg/dL Normal 0.60-1.20 [facility] Comment on above: Order Comment: No: D o not add to previous draw Performed By: #### 2 5508, 95937, 03137, 00462 #### [facility] [address] [place] [address], [place] GFR/1.73 sq M predicted among blacks MDRD vol rate/area (S/P/Bld) mL/min/{1.73_m2} Normal >60 [facility] Comment on above: Order Comment: No: D o not add to previous draw Performed By: #### 2 5508, 04191, 16193, 58695 #### [facility] [address] [place] [address], [place] GFR/1.73 sq M predicted among non-blacks MDRD vol rate/area (S/P/Bld) mL/min/{1.73_m2} Normal >60 [facility] Comment on above: Order Comment: No: D o not add to previous draw Performed By: #### 2 5508, 00562, 52501, 91301 #### [facility] [address] [place] [address], [facility] Glucose mass conc 114 mg/dL High 70-100 [facility] Comment on above: Order Comment: No: D o not add to previous draw Performed By: #### 2 5508, 36534, 01120, 36319 #### [facility] [address] [place] [address], [facility] Potassium molar conc 2.9 mmol/L Low 3.5-5.1 [facility] Comment on above: Order Comment: No: D o not add to previous draw Performed By: #### 2 5507, 47095, 72865, 57013 #### [facility] [address] [place] [address], [facility] Sodium molar conc 140 mmol/L Normal 136-145 [facility] Comment on above: Order Comment: No: D o not add to previous draw Performed By: #### 2 5508, 00527, 23437, 27736 #### [facility] [address] [place] [address], [facility] Urea nitrogen mass conc 12 mg/dL Normal 7-25 [facility] Comment on above: Order Comment: No: D o not add to previous draw Performed By: #### 2 5508, 06181, 09979, 82956 #### [facility] [address] [place] [id number], [facility] CBC W/DIFFon 05-31-2018 ABS BASOPHILS 0.0 10*3/uL Normal 0.0-0.2 [facility] Comment on above: Order Comment: No: D o not add to previous draw Performed By: #### 2 550, 03010, 20483, 25079 #### [facility] [address] [place] [id number], [facility] ABS NEUTROPHILS 3.2 10*3/uL Normal 1.6-7.6 [facility] Comment on above: Order Comment: No: D o not add to previous draw Performed By: #### 2 5507, 15640, 45958, 28018 #### [facility] [address] [place] [address], [facility] Basophils #/vol (Bld) 0.0 % Normal 0.0-1.0 [facility] Comment on above: Order Comment: No: D o not add to previous draw Performed By: #### 2 5507, , 58185, 11812 #### [facility] [address] [place] [address], [facility] Eosinophils #/vol (Bld) 0.0 10*3/uL Normal 0.0-0.5 [facility] Comment on above: Order Comment: No: D o not add to previous draw Performed By: #### 2 5507, , 70297, 59141 #### [facility] [address] [place] [id number], [facility] Eosinophils/100 WBC (Bld) 0.0 % Normal 0.0-6.0 [facility] Comment on above: Order Comment: No: D o not add to previous draw Performed By: #### 2 5507, , 63576, 38526 #### [facility] [address] [place] [id number], [facility] Erythrocyte distribution width Ratio (RBC) 14.2 % Normal 11.5-15.0 [facility] Comment on above: Order Comment: No: D o not add to previous draw Performed By: #### 2 5507, 45270, 56027, 04590 #### [facility] [address] [place] [address], [place] GIANT PLATELETS Present Normal [facility] Comment on above: Order Comment: No: D o not add to previous draw Performed By: #### 2 5507, 14769, 07905, 71785 #### [facility] [address] [place] [address], [facility] Hematocrit Volume Fraction (Bld) 37.7 % Normal 36.0-45.0 [facility] Comment on above: Order Comment: No: D o not add to previous draw Performed By: #### 2 5507, , 51126, 56367 #### [facility] [address] [place] [address], [facility] Hemoglobin mass conc (Bld) 12.5 g/dL Normal 12.0-15.0 [facility] Comment on above: Order Comment: No: D o not add to previous draw Performed By: #### 2 5507, , 04247, 34518 #### [facility] [address] [place] [address], [facility] Lymphocytes #/vol (Bld) 1.2 10*3/uL Normal 1.2-4.0 [facility] Comment on above: Order Comment: No: D o not add to previous draw Performed By: #### 2 5507, , 18457, 90007 #### [facility] [address] [place] [address], [facility] Lymphocytes/100 WBC (Bld) 24.3 % Normal 20.0-45.0 [facility] Comment on above: Order Comment: No: D o not add to previous draw Performed By: #### 2 5507, 53895, 72359, 20499 #### [facility] [address] [place] [id number], [facility] MCH Entitic mass (RBC) 27.7 pg Normal 27.0-33.0 [facility] Comment on above: Order Comment: No: D o not add to previous draw Performed By: #### 2 5507, 64626, 15269, 45435 #### [facility] [address] MCHC mass conc (RBC) 33.2 g/dL Normal 32.0-35.0 [facility] Comment on above: Order Comment: No: D o not add to previous draw Performed By: #### 2 5507, 31439, 47936, 99577 #### [facility] [address] MCV Entitic volume (RBC) 83.6 fL Normal 82.0-98.0 [facility] Comment on above: Order Comment: No: D o not add to previous draw Performed By: #### 2 5507, 64074, 74241, 99874 #### [facility] [address] METAMYELO 0.9 % High 0.0-0.0 [facility] Comment on above: Order Comment: No: D o not add to previous draw Performed By: #### 2 5507, , 14488, 16862 #### [facility] [address] Monocytes #/vol (Bld) 0.4 10*3/uL Normal 0.1-1.0 [facility] Comment on above: Order Comment: No: D o not add to previous draw Performed By: #### 2 5507, 42923, 34208, 09233 #### [facility] [address] MONOS 7.5 % Normal 5.0-12.0 [facility] Comment on above: Order Comment: No: D o not add to previous draw Performed By: #### 2 5507, 90799, 90299, 23080 #### [facility] [address] MYELOS 1.9 % High .0-.0 [facility] Comment on above: Order Comment: No: D o not add to previous draw Performed By: #### 2 5507, 65126, 13258, 66871 #### [facility] [address] [place] [address], [facility] Neutrophils/100 WBC (Bld) 65.4 % Normal 40.0-72.0 [facility] Comment on above: Order Comment: No: D o not add to previous draw Performed By: #### 2 5508, 25180, 15091, 52812 #### [facility] [address] [place] [id number], [facility] NRBC SCAN Present Normal [facility] Comment on above: Order Comment: No: D o not add to previous draw Performed By: #### 2 5508, 07019, 73896, 62093 #### [facility] [address] [place] [address], [facility] Nucleated RBC/100 WBC Ratio (Bld) 0 % Normal 0-0 [facility] Comment on above: Order Comment: No: D o not add to previous draw Performed By: #### 2 5508, 50255, 55316, 30460 #### [facility] [address] [place] [address], [facility] PLAT CNT 284 10*3/uL Normal 150-400 [facility] Comment on above: Order Comment: No: D o not add to previous draw Performed By: #### 2 5508, 74223, 31584, 52687 #### [facility] [address] [place] [address], [facility] RBC #/vol (Bld) 4.51 10*6/uL Normal 3.80-5.00 [facility] Comment on above: Order Comment: No: D o not add to previous draw Performed By: #### 2 5508, 39467, 76156, 78690 #### [facility] [address] [place] [id number], [facility] WBC #/vol (Bld) 4.88 10*3/uL Normal 4.00-10.60 [facility] Comment on above: Order Comment: No: D o not add to previous draw Performed By: #### 2 5508, 35365, 91619, 83324 #### [facility] [address] [place] [address], [facility] EEG Reporton 05-31-2018 EEG Report Name: Shabana Stallworth [facility] MR#: [id number] Age: 58 Physician: Colt Boggs M.D. 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 EEG DURATION: 23:45 and 28 [...] P Raghu Matson MD Date Dict: 05/30/2018/10:09 Dipak/Raghu Matson MD Date Trans: 05/31/2018 05:14 Dipak/luis e [id number] cc: Colt Boggs M.D. [address] [place] [id number] Normal [facility] MAGNESIUM BLOODon 05-31-2018 Magnesium mass conc 1.9 mg/dL Normal 1.9-2.7 [facility] Comment on above: Order Comment: No: D o not add to previous draw Performed By: #### 2 5508, 85513, 45793, 76330 #### [facility] [address] [place] [address], [facility] PHOSPHORUS BLOODon 9 Phosphate mass conc 4.0 mg/dL Normal 2.5-5.0 [facility] Comment on above: Order Comment: No: D o not add to previous draw Performed By: #### 2 5508, 56724, 32398, 32093 #### [facility] [address] [place] [address], [place] POC GLUCOSE LABon 05-31-2018 Glucose mass conc 274 mg/dL High 70-100 [facility] Comment on above: Performed By: #### 2 5508, 40233, 45193, 03309 #### [facility] [address] [place] [address], [place] Glucose mass conc 265 mg/dL High 70-100 [facility] Comment on above: Performed By: #### 2 5507, 79558, 16052, 46058 #### [facility] [address] [place] [address], [place] Glucose mass conc 118 mg/dL High 70-100 [facility] Comment on above: Performed By: #### 2 5507, 98632, 16305, 58485 #### [facility] [address] [place], [place] [address], [place] Glucose mass conc 123 mg/dL High 70-100 [facility] Comment on above: Performed By: #### 2 5507, 49553, 35487, 17947 #### [facility] [address] [place] [address], [facility] ARTERIAL BLOOD GAS WITH ICAo n 05-30-2018 BASE EXCESS 5 mmol/L High -2-2 [facility] Comment on above: Performed By: #### 2 5507, 84843, 97660, 91681 #### [facility] [address] [place] [address], [facility] DELIVERY SYSTEMS MV Normal [facility] Comment on above: Performed By: #### 2 5507, 73365, 19531, 74590 #### [facility] [address] [place] [address], [place] FIO2 40 % Normal 21-100 [facility] Comment on above: Performed By: #### 2 5507, 05994, 50171, 06724 #### [facility] [address] [place] [address], [place] HCO3 molar conc (Bld) 30 mmol/L High 23-27 [facility] Comment on above: Performed By: #### 2 5507, 52229, 64926, 56191 #### [facility] [address] [place] [address], [place] IONIZED CALCIUM 1.21 mmol/L Normal 1.13-1.32 [facility] Comment on above: Performed By: #### 2 5507, 31102, 81379, 48869 #### [facility] [address] [place] [address], [place] MIN VOLUME 7.7 Normal [facility] Comment on above: Performed By: #### 2 5507, 67325, 79885, 08283 #### [facility] [address] [place] [address], [place] MODALITY AC Normal [facility] Comment on above: Performed By: #### 2 5507, 00164, 66624, 70283 #### [facility] [address] [place] [address], [place] Oxygen ppres (Bld) 88 mm[Hg] Normal 75-100 [facility] Comment on above: Performed By: #### 2 5507, 22808, 88829, 53926 #### [facility] [address] [place] [address], [place] Oxygen saturation in Blood 95.4 % Normal 94.0-97.0 [facility] Comment on above: Performed By: #### 2 5507, 08058, 29408, 64466 #### [facility] [address] [place] [address], [place] PCO2 43 mmHg Normal 35-45 [facility] Comment on above: Performed By: #### 2 5507, 17692, 15036, 57034 #### [facility] [address] [place] [address], [place] PEEP 8.0 CMH20 Normal [facility] Comment on above: Performed By: #### 2 5507, 03389, 29985, 34035 #### [facility] [address] [place] [address], [place] PF RATIO 220 mmHg Normal 50-400 [facility] Comment on above: Performed By: #### 2 5507, 22342, 32325, 42272 #### [facility] [address] [place] [address], [place] pH (Bld) 7.45 [pH] Normal 7.35-7.45 [facility] Comment on above: Performed By: #### 2 5508, 09320, 81971, 13277 #### [facility] [address] [place] [address], [place] TIDAL VOLUME (VT) CC 400 Normal [facility] Comment on above: Performed By: #### 2 5508, 05547, 67193, 18415 #### [facility] [address] [place] [address], [place] BASIC METABOLIC PANELon 05-15 Calcium mass conc 8.5 mg/dL Low 8.6-10.3 [facility] Comment on above: Order Comment: No: D o not add to previous draw Performed By: #### 2 550, 28556, 43161, 36924 #### [facility] [address] [place] [address], [place] Chloride molar conc 101 mmol/L Normal 98-107 [facility] Comment on above: Order Comment: No: D o not add to previous draw Performed By: #### 2 5508, 33751, 18779, 27999 #### [facility] [address] [place] [address], [place] CO2 molar conc 28 mmol/L Normal 21-31 [facility] Comment on above: Order Comment: No: D o not add to previous draw Performed By: #### 2 5508, 18213, 06006, 55389 #### [facility] [address] [place] [address], [place] Creatinine mass conc 0.59 mg/dL Low 0.60-1.20 [facility] Comment on above: Order Comment: No: D o not add to previous draw Performed By: #### 2 550, 24625, 64126, 60218 #### [facility] [address] [place] [address], [place] GFR/1.73 sq M predicted among blacks MDRD vol rate/area (S/P/Bld) mL/min/{1.73_m2} Normal >60 [facility] Comment on above: Order Comment: No: D o not add to previous draw Performed By: #### 2 5508, 78615, 54151, 18471 #### [facility] [address] [place] [address], [place] GFR/1.73 sq M predicted among non-blacks MDRD vol rate/area (S/P/Bld) mL/min/{1.73_m2} Normal >60 [facility] Comment on above: Order Comment: No: D o not add to previous draw Performed By: #### 2 5508, 35658, 79425, 47397 #### [facility] [address] [place] [address], [place] Glucose mass conc 239 mg/dL High 70-100 [facility] Comment on above: Order Comment: No: D o not add to previous draw Performed By: #### 2 5508, 97252, 19707, 91058 #### [facility] [address] [place] [address], [place] Potassium molar conc 3.6 mmol/L Normal 3.5-5.1 [facility] Comment on above: Order Comment: No: D o not add to previous draw Performed By: #### 2 5508, 70001, 33594, 83658 #### [facility] [address] [place] [address], [place] Sodium molar conc 136 mmol/L Normal 136-145 [facility] Comment on above: Order Comment: No: D o not add to previous draw Performed By: #### 2 5508, 63928, 13728, 94703 #### [facility] [address] [place] [address], [place] Urea nitrogen mass conc 20 mg/dL Normal 7-25 [facility] Comment on above: Order Comment: No: D o not add to previous draw Performed By: #### 2 5508, 81322, 53226, 38034 #### [facility] [address] CBC W/DIFFon 05-30-2018 ABS BASOPHILS 0.0 10*3/uL Normal 0.0-0.2 [facility] Comment on above: Order Comment: No: D o not add to previous draw Performed By: #### 2 8, 96368, 15029, 06551 #### [facility] [address] ABS IMM GRANS 0.2 10*3/uL Normal 0.0-0.2 [facility] Comment on above: Order Comment: No: D o not add to previous draw Performed By: #### 2 8, 63362, 76753, 61309 #### [facility] [address] ABS NEUTROPHILS 2.5 10*3/uL Normal 1.6-7.6 [facility] Comment on above: Order Comment: No: D o not add to previous draw Performed By: #### 2 5507, 17533, 90831, 73194 #### [facility] [address] [facility]. [address] Basophils #/vol (Bld) 0.5 % Normal 0.0-1.0 [facility] Comment on above: Order Comment: No: D o not add to previous draw Performed By: #### 2 5508, 85614, 80237, 49061 #### [facility] [address] [facility]. [address] Eosinophils #/vol (Bld) 0.0 10*3/uL Normal 0.0-0.5 [facility] Comment on above: Order Comment: No: D o not add to previous draw Performed By: #### 2 550, 73837, 15891, 48005 #### [facility] [address] [place] [address], [facility] Eosinophils/100 WBC (Bld) 0.0 % Normal 0.0-6.0 [facility] Comment on above: Order Comment: No: D o not add to previous draw Performed By: #### 2 550, 27901, 07730, 09823 #### [facility] [address] Erythrocyte distribution width Ratio (RBC) 13.9 % Normal 11.5-15.0 [facility] Comment on above: Order Comment: No: D o not add to previous draw Performed By: #### 2 5507, 31074, 44075, 05473 #### [facility] [address] Hematocrit Volume Fraction (Bld) 34.3 % Low 36.0-45.0 [facility] Comment on above: Order Comment: No: D o not add to previous draw Performed By: #### 2 550, 47165, 04615, 89943 #### [facility] [address] Hemoglobin mass conc (Bld) 11.3 g/dL Low 12.0-15.0 [facility] Comment on above: Order Comment: No: D o not add to previous draw Performed By: #### 2 550, 58812, 09008, 06457 #### [facility] [address] [place] [address], [facility] IMMATURE GRANS 3.6 % High 0.0-1.0 [facility] Comment on above: Order Comment: No: D o not add to previous draw Performed By: #### 2 550, 16316, 22881, 47776 #### [facility] [address] [place] [id number], [facility] Lymphocytes #/vol (Bld) 1.2 10*3/uL Normal 1.2-4.0 [facility] Comment on above: Order Comment: No: D o not add to previous draw Performed By: #### 2 5507, 84821, 21190, 89588 #### [facility] [address] [place] [address], [facility] Lymphocytes/100 WBC (Bld) 29.0 % Normal 20.0-45.0 [facility] Comment on above: Order Comment: No: D o not add to previous draw Performed By: #### 2 5507, 86843, 57444, 82089 #### [facility] [address] MCH Entitic mass (RBC) 28.0 pg Normal 27.0-33.0 [facility] Comment on above: Order Comment: No: D o not add to previous draw Performed By: #### 2 5507, , 56965, 43884 #### [facility] [address] MCHC mass conc (RBC) 32.9 g/dL Normal 32.0-35.0 [facility] Comment on above: Order Comment: No: D o not add to previous draw Performed By: #### 2 5507, 39687, 64199, 80891 #### [facility] [address] MCV Entitic volume (RBC) 85.1 fL Normal 82.0-98.0 [facility] Comment on above: Order Comment: No: D o not add to previous draw Performed By: #### 2 5507, 89336, 92189, 04562 #### [facility] [address] [place] [address], [facility] Monocytes #/vol (Bld) 0.3 10*3/uL Normal 0.1-1.0 [facility] Comment on above: Order Comment: No: D o not add to previous draw Performed By: #### 2 5507, 94434, 78484, 76075 #### [facility] [address] [place] [id number], [facility] MONOS 6.9 % Normal 5.0-12.0 [facility] Comment on above: Order Comment: No: D o not add to previous draw Performed By: #### 2 5508, 37051, 05477, 60717 #### [facility] [address] [place] [address], [facility] Neutrophils/100 WBC (Bld) 60.0 % Normal 40.0-72.0 [facility] Comment on above: Order Comment: No: D o not add to previous draw Performed By: #### 2 5508, 48931, 90130, 43223 #### [facility] [address] [place] [address], [facility] Nucleated RBC/100 WBC Ratio (Bld) 0 % Normal 0-0 [facility] Comment on above: Order Comment: No: D o not add to previous draw Performed By: #### 2 5508, 75719, 96762, 60509 #### [facility] [address] [facility] [place] [address], [facility] PLAT CNT 250 10*3/uL Normal 150-400 [facility] Comment on above: Order Comment: No: D o not add to previous draw Performed By: #### 2 5508, 67470, 67524, 16634 #### [facility] [address] [facility] [place] [address], [facility] RBC #/vol (Bld) 4.03 10*6/uL Normal 3.80-5.00 [facility] Comment on above: Order Comment: No: D o not add to previous draw Performed By: #### 2 5508, 41204, 22646, 28947 #### [facility] [address] [place] [id number], [facility] WBC #/vol (Bld) 4.20 10*3/uL Normal 4.00-10.60 [facility] Comment on above: Order Comment: No: D o not add to previous draw Performed By: #### 2 5508, 24579, 04103, 48843 #### [facility] [address] [place], [place] [address] EEG Reporton 05-30-2018 EEG Report Name: Shabana Stallworth [facility] MR#: [id number] Age: 58 Physician: Colt Boggs M.D. 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 EEG DURATION: 23:53:41. CLINICAL HISTORY: [...] P/Raghu Matson MD Date Trans: 05/30/2018 05:46 A/mmo [id number] cc: Colt Boggs M.D. [address] [place] [id number] Normal [facility] MAGNESIUM BLOODon 05-30-2018 Magnesium mass conc 1.8 mg/dL Low 1.9-2.7 [facility] Comment on above: Order Comment: No: D o not add to previous draw Performed By: #### 2 5508, 54232, 49781, 31062 #### [facility] [address] [place] [address], [facility] PHOSPHORUS BLOODon 9 Phosphate mass conc 2.0 mg/dL Low 2.5-5.0 [facility] Comment on above: Order Comment: No: D o not add to previous draw Performed By: #### 2 5508, 22310, 44172, 76902 #### [facility] [address] [place] [address], [facility] POC GLUCOSE LABon 05-30-2018 Glucose mass conc 297 mg/dL High 70-100 [facility] Comment on above: Performed By: #### 2 5508, 54204, 07754, 07104 #### [facility] [address] [place] [address], [facility] Glucose mass conc 176 mg/dL High 70-100 [facility] Comment on above: Performed By: #### 2 5508, 39530, 34135, 44458 #### [facility] [address] [place] [address], [place] BASIC METABOLIC PANELon 05-15 Calcium mass conc 8.7 mg/dL Normal 8.6-10.3 [facility] Comment on above: Order Comment: No: D o not add to previous draw Performed By: #### 2 5508, 28256, 01618, 96196 #### [facility] [address] [place] [address], [place] Chloride molar conc 103 mmol/L Normal 98-107 [facility] Comment on above: Order Comment: No: D o not add to previous draw Performed By: #### 2 5508, 78610, 61274, 62972 #### [facility] [address] [place] [address], [place] CO2 molar conc 26 mmol/L Normal 21-31 [facility] Comment on above: Order Comment: No: D o not add to previous draw Performed By: #### 2 5508, 28956, 64193, 67245 #### [facility] [address] [place] [address], [place] Creatinine mass conc 0.56 mg/dL Low 0.60-1.20 [facility] Comment on above: Order Comment: No: D o not add to previous draw Performed By: #### 2 5508, 22527, 82734, 60275 #### [facility] [address] [place] [address], [place] GFR/1.73 sq M predicted among blacks MDRD vol rate/area (S/P/Bld) mL/min/{1.73_m2} Normal >60 [facility] Comment on above: Order Comment: No: D o not add to previous draw Performed By: #### 2 5508, 08117, 70419, 29454 #### [facility] [address] [place] [address], [place] GFR/1.73 sq M predicted among non-blacks MDRD vol rate/area (S/P/Bld) mL/min/{1.73_m2} Normal >60 [facility] Comment on above: Order Comment: No: D o not add to previous draw Performed By: #### 2 5508, 44174, 56280, 73591 #### [facility] [address] [place] [address], [place] Glucose mass conc 263 mg/dL High 70-100 [facility] Comment on above: Order Comment: No: D o not add to previous draw Performed By: #### 2 5508, 52101, 70075, 52510 #### [facility] [address] [place] [address], [place] Potassium molar conc 4.1 mmol/L Normal 3.5-5.1 [facility] Comment on above: Order Comment: No: D o not add to previous draw Performed By: #### 2 550, 77051, 05528, 42465 #### [facility] [address] [place] [address], [place] Sodium molar conc 135 mmol/L Low 136-145 [facility] Comment on above: Order Comment: No: D o not add to previous draw Performed By: #### 2 5508, 81745, 56580, 32649 #### [facility] [address] [place] [address], [place] Urea nitrogen mass conc 20 mg/dL Normal 7-25 [facility] Comment on above: Order Comment: No: D o not add to previous draw Performed By: #### 2 5508, 63204, 56718, 12124 #### [facility] [address] [place] [address], [place] CBC COMPLETE BLOOD COUNTon 0 - Erythrocyte distribution width Ratio (RBC) 13.7 % Normal 11.5-15.0 [facility] Comment on above: Order Comment: No: D o not add to previous draw Performed By: #### 2 5508, 16216, 94084, 83682 #### [facility] [address] Hematocrit Volume Fraction (Bld) 34.0 % Low 36.0-45.0 [facility] Comment on above: Order Comment: No: D o not add to previous draw Performed By: #### 2 8, 84994, 54426, 92217 #### [facility] [address] [place] [address], [facility] Hemoglobin mass conc (Bld) 11.2 g/dL Low 12.0-15.0 [facility] Comment on above: Order Comment: No: D o not add to previous draw Performed By: #### 2 5507, 00553, 28215, 86879 #### [facility] [address] [facility] [address] MCH Entitic mass (RBC) 27.6 pg Normal 27.0-33.0 [facility] Comment on above: Order Comment: No: D o not add to previous draw Performed By: #### 2 5507, 98443, 70954, 69832 #### [facility] [address] [facility] [place] [address], [facility] MCHC mass conc (RBC) 32.9 g/dL Normal 32.0-35.0 [facility] Comment on above: Order Comment: No: D o not add to previous draw Performed By: #### 2 5507, 24656, 54911, 26570 #### [facility] [address] [place] [address], [facility] MCV Entitic volume (RBC) 83.7 fL Normal 82.0-98.0 [facility] Comment on above: Order Comment: No: D o not add to previous draw Performed By: #### 2 5507, 09388, 34126, 19480 #### [facility] [address] [place] [address], [facility] Nucleated RBC/100 WBC Ratio (Bld) 0 % Normal 0-0 [facility] Comment on above: Order Comment: No: D o not add to previous draw Performed By: #### 2 5508, 41540, 33632, 78951 #### [facility] [address] [place] [address], [facility] PLAT CNT 237 10*3/uL Normal 150-400 [facility] Comment on above: Order Comment: No: D o not add to previous draw Performed By: #### 2 5508, 06088, 21953, 55627 #### [facility] [address] RBC #/vol (Bld) 4.06 10*6/uL Normal 3.80-5.00 [facility] Comment on above: Order Comment: No: D o not add to previous draw Performed By: #### 2 5508, 25538, 88067, 53266 #### [facility] [address] WBC #/vol (Bld) 3.83 10*3/uL Low 4.00-10.60 [facility] Comment on above: Order Comment: No: D o not add to previous draw Performed By: #### 2 5508, 72779, 79060, 45849 #### [facility] [address] EEG Reporton 05-29-2018 EEG Report Name: Shabana Stallworth [facility] MR#: [id number] Age: 58 Physician: Colt Boggs M.D. Date: From 0630 hours on May 27, 2018, until 0630 hours on May 28, 2018. 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 EEG DURATION: 23:57 and 28 [...] P/Raghu Matson MD Date Trans: 05/29/2018 08:51 Dipak/luis e [id number] cc: Colt Boggs M.D. [address] [place] [phone] Normal [facility] MAGNESIUM BLOODon 05-29-2018 Magnesium mass conc 1.9 mg/dL Normal 1.9-2.7 [facility] Comment on above: Order Comment: No: D o not add to previous draw Performed By: #### 2 5468, 62190, 59547, 93797 #### [facility] [address] [place] [address], [facility] PHOSPHORUS BLOODon 9 Phosphate mass conc 2.0 mg/dL Low 2.5-5.0 [facility] Comment on above: Order Comment: No: D o not add to previous draw Performed By: #### 2 5508, 03014, 74596, 75541 #### [facility] [address] [place] [address], [facility] BASIC METABOLIC PANELon 05-15 Calcium mass conc 8.5 mg/dL Low 8.6-10.3 [facility] Comment on above: Order Comment: No: D o not add to previous draw Performed By: #### 2 5508, 49135, 32154, 19674 #### [facility] [address] [place] [address], [place] Chloride molar conc 107 mmol/L Normal 98-107 [facility] Comment on above: Order Comment: No: D o not add to previous draw Performed By: #### 2 5508, 17283, 85082, 72361 #### [facility] [address] [place] [address], [place] CO2 molar conc 22 mmol/L Normal 21-31 [facility] Comment on above: Order Comment: No: D o not add to previous draw Performed By: #### 2 5508, 62403, 55055, 12303 #### [facility] [address] [place] [address], [place] Creatinine mass conc 0.54 mg/dL Low 0.60-1.20 [facility] Comment on above: Order Comment: No: D o not add to previous draw Performed By: #### 2 5508, 60795, 15101, 59203 #### [facility] [address] [place] [address], [place] GFR/1.73 sq M predicted among blacks MDRD vol rate/area (S/P/Bld) mL/min/{1.73_m2} Normal >60 [facility] Comment on above: Order Comment: No: D o not add to previous draw Performed By: #### 2 5507, 19699, 88613, 23956 #### [facility] [address] [place] [address], [place] GFR/1.73 sq M predicted among non-blacks MDRD vol rate/area (S/P/Bld) mL/min/{1.73_m2} Normal >60 [facility] Comment on above: Order Comment: No: D o not add to previous draw Performed By: #### 2 5507, 72489, 96359, 18759 #### [facility] [address] [place] [address], [place] Glucose mass conc 161 mg/dL High 70-100 [facility] Comment on above: Order Comment: No: D o not add to previous draw Performed By: #### 2 5507, 07541, 63793, 96042 #### [facility] [address] [place] [address], [place] Potassium molar conc 3.9 mmol/L Normal 3.5-5.1 [facility] Comment on above: Order Comment: No: D o not add to previous draw Performed By: #### 2 5507, 73650, 73848, 11109 #### [facility] [address] [place] [address], [place] Sodium molar conc 137 mmol/L Normal 136-145 [facility] Comment on above: Order Comment: No: D o not add to previous draw Performed By: #### 2 550, 97370, 35292, 81865 #### [facility] [address] [place] [address], [place] Urea nitrogen mass conc 15 mg/dL Normal 7-25 [facility] Comment on above: Order Comment: No: D o not add to previous draw Performed By: #### 2 550, 35878, 73759, 96016 #### [facility] [address] [place] [id number], [facility] CBC COMPLETE BLOOD COUNTon 0 - Erythrocyte distribution width Ratio (RBC) 13.9 % Normal 11.5-15.0 [facility] Comment on above: Order Comment: No: D o not add to previous draw Performed By: #### 2 5508, 14027, 92804, 06652 #### [facility] [address] [place] [address], [facility] Hematocrit Volume Fraction (Bld) 32.2 % Low 36.0-45.0 [facility] Comment on above: Order Comment: No: D o not add to previous draw Performed By: #### 2 550, 32007, 71634, 77453 #### [facility] [address] [place] [address], [facility] Hemoglobin mass conc (Bld) 10.4 g/dL Low 12.0-15.0 [facility] Comment on above: Order Comment: No: D o not add to previous draw Performed By: #### 2 5508, 08364, 17545, 18100 #### [facility] [address] [place] [address], [facility] MCH Entitic mass (RBC) 27.6 pg Normal 27.0-33.0 [facility] Comment on above: Order Comment: No: D o not add to previous draw Performed By: #### 2 550, 27468, 09991, 57538 #### [facility] [address] [place] [address], [place] MCHC mass conc (RBC) 32.3 g/dL Normal 32.0-35.0 [facility] Comment on above: Order Comment: No: D o not add to previous draw Performed By: #### 2 5508, 54529, 88780, 24080 #### [facility] [address] [place] [address], [place] MCV Entitic volume (RBC) 85.4 fL Normal 82.0-98.0 [facility] Comment on above: Order Comment: No: D o not add to previous draw Performed By: #### 2 5508, 46685, 48906, 23779 #### [facility] [address] Nucleated RBC/100 WBC Ratio (Bld) 0 % Normal 0-0 [facility] Comment on above: Order Comment: No: D o not add to previous draw Performed By: #### 2 5508, 11563, 65391, 54537 #### [facility] [address] [place] [address], [facility] PLAT CNT 241 10*3/uL Normal 150-400 [facility] Comment on above: Order Comment: No: D o not add to previous draw Performed By: #### 2 5508, 39199, 12939, 83703 #### [facility] [address] [place] [address], [facility] RBC #/vol (Bld) 3.77 10*6/uL Low 3.80-5.00 [facility] Comment on above: Order Comment: No: D o not add to previous draw Performed By: #### 2 5508, 39100, 89257, 62600 #### [facility] [address] [place] [address], [facility] WBC #/vol (Bld) 3.77 10*3/uL Low 4.00-10.60 [facility] Comment on above: Order Comment: No: D o not add to previous draw Performed By: #### 2 5508, 18824, 28377, 74373 #### [facility] [address] [place] [address], [facility] CORTISOLon 05-28-2018 CORTISOL 2.6 mcg/dL Normal [facility] Comment on above: Order Comment: No: D o not add to previous draw Result Comment: Refe rence Range: AM 6.0-23.0 mcg/dL PM 0.0-9.0 mcg/dL Performed By: #### 2 5508, 43150, 20752, 02596 #### [facility] [address] [place] [address], [facility] MAGNESIUM BLOODon 05-28-2018 Magnesium mass conc 1.8 mg/dL Low 1.9-2.7 [facility] Comment on above: Order Comment: No: D o not add to previous draw Performed By: #### 2 5508, 23528, 30824, 10388 #### [facility] [address] [place] [address], [facility] PHOSPHORUS BLOODon 9 Phosphate mass conc 3.0 mg/dL Normal 2.5-5.0 [facility] Comment on above: Order Comment: No: D o not add to previous draw Performed By: #### 2 5508, 97502, 04973, 41549 #### [facility] [address] [facility] [address] THYROGLOBULIN [place] [address]rm Thyroglobulin Ab Qn [IU]/mL Normal 0.0-4.0 [facility] Comment on above: Order Comment: No: D o not add to previous draw Result Comment: INTE RPRETIVE INFORMATION: Thyroglobulin Antibody A value of 4.0 IU/mL or less indicates a negative result for thyroglobulin antibodies. The Thyroglobulin Antibody assay is being performed using the Salvador Marimar Access DxI method. Performed by [facility], [address] [place] [id number] [email or web address], Jack Torres MD - Lab. Director ARTERIAL BLOOD GAS WITH ICAo n 05-27-2018 BASE EXCESS -5 mmol/L Low -2-2 [facility] Comment on above: Performed By: #### 2 5508, 88989, 43245, 24642 #### [facility] [address] [place] [address], [facility] [employer] MV Normal [facility] Comment on above: Performed By: #### 2 5508, 22504, 07020, 89148 #### [facility] [address] [place] [address], [facility] FIO2 40 % Normal 21-100 [facility] Comment on above: Performed By: #### 2 5507, 18429, 02741, 39605 #### [facility] [address] [place] [address], [facility] HCO3 molar conc (Bld) 21 mmol/L Low 23-27 [facility] Comment on above: Performed By: #### 2 5507, 60532, 54257, 75832 #### [facility] [address] [place] [address], [facility] IONIZED CALCIUM 1.25 mmol/L Normal 1.13-1.32 [facility] Comment on above: Performed By: #### 2 5507, 82532, 23838, 01040 #### [facility] [address] [place] [id number], [facility] MIN VOLUME 6.1 Normal [facility] Comment on above: Performed By: #### 2 5507, 12624, 18541, 01924 #### [facility] [address] [facility] [place] [address], [facility] MODALITY AC Normal [facility] Comment on above: Performed By: #### 2 5507, 95349, 16537, 14432 #### [facility] [address] [place] [address], [facility] Oxygen ppres (Bld) 135 mm[Hg] Critically high 75-100 [facility] Comment on above: Performed By: #### 2 5507, 90307, 94178, 29391 #### [facility] [address] [place] [address], [facility] Oxygen saturation in Blood 95.5 % Normal 94.0-97.0 [facility] Comment on above: Performed By: #### 2 5507, 63982, 05595, 64775 #### [facility] [address] [place] [address], [place] PCO2 43 mmHg Normal 35-45 [facility] Comment on above: Performed By: #### 2 5508, 82929, 76215, 19080 #### [facility] [address] [place] [address], [place] PEEP 8.0 CMH20 Normal [facility] Comment on above: Performed By: #### 2 5508, 51533, 48529, 82158 #### [facility] [address] [place] [address], [place] pH (Bld) 7.30 [pH] Low 7.35-7.45 [facility] Comment on above: Performed By: #### 2 5508, 87477, 38436, 35825 #### [facility] [address] [place] [address], [place] TIDAL VOLUME (VT) CC 400 Normal [facility] Comment on above: Performed By: #### 2 5508, 33867, 54606, 77581 #### [facility] [address] [place] [address], [facility] BASIC METABOLIC PANELon 05-15 Calcium mass conc 8.1 mg/dL Low 8.6-10.3 [facility] Comment on above: Order Comment: No: D o not add to previous draw Performed By: #### 2 5508, 75021, 86325, 29533 #### [facility] [address] [place] [address], [place] Chloride molar conc 109 mmol/L High 98-107 [facility] Comment on above: Order Comment: No: D o not add to previous draw Performed By: #### 2 5508, 98474, 39666, 35219 #### [facility] [address] [place] [address], [place] CO2 molar conc 23 mmol/L Normal 21-31 [facility] Comment on above: Order Comment: No: D o not add to previous draw Performed By: #### 2 5508, 95087, 49647, 00549 #### [facility] [address] [place] [address], [facility] Creatinine mass conc 0.63 mg/dL Normal 0.60-1.20 [facility] Comment on above: Order Comment: No: D o not add to previous draw Performed By: #### 2 5508, 57339, 58927, 77228 #### [facility] [address] [place] [address], [place] GFR/1.73 sq M predicted among blacks MDRD vol rate/area (S/P/Bld) mL/min/{1.73_m2} Normal >60 [facility] Comment on above: Order Comment: No: D o not add to previous draw Performed By: #### 2 5507, 07551, 43625, 63418 #### [facility] [address] [place] [address], [facility] GFR/1.73 sq M predicted among non-blacks MDRD vol rate/area (S/P/Bld) mL/min/{1.73_m2} Normal >60 [facility] Comment on above: Order Comment: No: D o not add to previous draw Performed By: #### 2 550, 30305, 85608, 68795 #### [facility] [address] [place] [address], [facility] Glucose mass conc 87 mg/dL Normal 70-100 [facility] Comment on above: Order Comment: No: D o not add to previous draw Performed By: #### 2 5508, 75928, 10052, 76684 #### [facility] [address] [place] [address], [place] Potassium molar conc 3.7 mmol/L Normal 3.5-5.1 [facility] Comment on above: Order Comment: No: D o not add to previous draw Performed By: #### 2 550, 51556, 27627, 33551 #### [facility] [address] [place] [address], [facility] Sodium molar conc 140 mmol/L Normal 136-145 [facility] Comment on above: Order Comment: No: D o not add to previous draw Performed By: #### 2 5508, 80162, 79054, 68489 #### [facility] [address] [place] [address], [facility] Urea nitrogen mass conc 8 mg/dL Normal 7-25 [facility] Comment on above: Order Comment: No: D o not add to previous draw Performed By: #### 2 5508, 01032, 39533, 97538 #### [facility] [address] [place] [address], [facility] CBC COMPLETE BLOOD COUNTon 0 05-27-2018 Erythrocyte distribution width Ratio (RBC) 14.1 % Normal 11.5-15.0 [facility] Comment on above: Order Comment: No: D o not add to previous draw Performed By: #### 2 5508, 01383, 45346, 45725 #### [facility] [address] [place] [id number], [facility] Hematocrit Volume Fraction (Bld) 32.7 % Low 36.0-45.0 [facility] Comment on above: Order Comment: No: D o not add to previous draw Performed By: #### 2 5508, 95170, 78545, 21476 #### [facility] [address] [place] [address], [facility] Hemoglobin mass conc (Bld) 10.6 g/dL Low 12.0-15.0 [facility] Comment on above: Order Comment: No: D o not add to previous draw Performed By: #### 2 5508, 62317, 77993, 18833 #### [facility] [address] [place] [address], [place] MCH Entitic mass (RBC) 28.0 pg Normal 27.0-33.0 [facility] Comment on above: Order Comment: No: D o not add to previous draw Performed By: #### 2 5508, 88178, 96745, 10980 #### [facility] [address] [place] [address], [facility] MCHC mass conc (RBC) 32.4 g/dL Normal 32.0-35.0 [facility] Comment on above: Order Comment: No: D o not add to previous draw Performed By: #### 2 5507, 67011, 98923, 64030 #### [facility] [address] [place] [address], [facility] MCV Entitic volume (RBC) 86.5 fL Normal 82.0-98.0 [facility] Comment on above: Order Comment: No: D o not add to previous draw Performed By: #### 2 550, 15351, 47143, 33423 #### [facility] [address] Nucleated RBC/100 WBC Ratio (Bld) 0 % Normal 0-0 [facility] Comment on above: Order Comment: No: D o not add to previous draw Performed By: #### 2 550, 57456, 40439, 27706 #### [facility] [address] [place] [address], [facility] PLAT CNT 207 10*3/uL Normal 150-400 [facility] Comment on above: Order Comment: No: D o not add to previous draw Performed By: #### 2 550, 25903, 60795, 43652 #### [facility] [address] [place] [address], [facility] RBC #/vol (Bld) 3.78 10*6/uL Low 3.80-5.00 [facility] Comment on above: Order Comment: No: D o not add to previous draw Performed By: #### 2 550, 95310, 62444, 73263 #### [facility] [address] [place] [id number], [facility] WBC #/vol (Bld) 3.84 10*3/uL Low 4.00-10.60 [facility] Comment on above: Order Comment: No: D o not add to previous draw Performed By: #### 2 5508, 71620, 93033, 99785 #### [facility] [address] EEG Reporton 05-27-2018 EEG Report Name: Shabana Stallworth [facility] MR#: [id number] Age: 58 Physician: Colt Boggs M.D. 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 EEG DURATION: 23:57 and 13 [...] MD Date Trans: 05/27/2018 08:32 P/luis e [id number] cc: Colt Boggs M.D. [address] [place] [id number] [place] [facility] EEG Report Name: Shabana Stallworth [facility] MR#: [id number] Age: 58 Physician: Colt Boggs M.D. 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 EEG DURATION: 23:57:32. CLINICAL HISTORY: [...] MD Date Trans: 05/27/2018 07:09 Dipak/luis e [id number] cc: Colt Boggs M.D. [address] [place] [id number] Normal [facility] MAGNESIUM BLOODon 05-27-2018 Magnesium mass conc 1.7 mg/dL Low 1.9-2.7 [facility] Comment on above: Order Comment: No: D o not add to previous draw Performed By: #### 2 5508, 65851, 63455, 68462 #### [facility] [address] [place] [address], [facility] PHOSPHORUS BLOODon 9 Phosphate mass conc 3.0 mg/dL Normal 2.5-5.0 [facility] Comment on above: Order Comment: No: D o not add to previous draw Performed By: #### 2 5508, 26448, 21156, 41206 #### [facility] [address] ARTERIAL BLOOD GAS WITH ICAo n 05-26-2018 BASE EXCESS -3 mmol/L Low -2-2 [facility] Comment on above: Performed By: #### 8 5123 #### [facility] [address] [place] [id number], [facility] [employer] MV Normal [facility] Comment on above: Performed By: #### 8 5123 #### [facility] [address] [place] [address], [facility] FIO2 40 % Normal 21-100 [facility] Comment on above: Performed By: #### 8 5123 #### [facility] [address] [place] [address], [facility] HCO3 molar conc (Bld) 22 mmol/L Low 23-27 [facility] Comment on above: Performed By: #### 8 5123 #### [facility] [address] [place] [address], [facility] IONIZED CALCIUM 1.19 mmol/L Normal 1.13-1.32 [facility] Comment on above: Performed By: #### 8 5123 #### [facility] [address] [facility] [place] [address], [facility] MIN VOLUME 6.1 Normal [facility] Comment on above: Performed By: #### 8 5123 #### [facility] [address] [place] [address], [facility] MODALITY AC Normal [facility] Comment on above: Performed By: #### 8 5123 #### [facility] [address] [place] [address], [facility] Oxygen ppres (Bld) 162 mm[Hg] Critically high 75-100 T [facility] Comment on above: Performed By: #### 8 5123 #### [facility] [address] [place] [address], [facility] Oxygen saturation in Blood 96.4 % Normal 94.0-97.0 [facility] Comment on above: Performed By: #### 8 5123 #### [facility] [address] [place] [address], [facility] PCO2 40 mmHg Normal 35-45 [facility] Comment on above: Performed By: #### 8 5123 #### [facility] [address] [place] [address], [facility] PEEP 8.0 CMH20 Normal [facility] Comment on above: Performed By: #### 8 5123 #### [facility] [address] [place] [address], [facility] pH (Bld) 7.35 [pH] Normal 7.35-7.45 [facility] Comment on above: Performed By: #### 8 5123 #### [facility] [address] [place] [address], [facility] TIDAL VOLUME (VT) CC 400 Normal [facility] Comment on above: Performed By: #### 8 5123 #### [facility] [address] BASIC METABOLIC PANELon 05-15 Calcium mass conc 7.8 mg/dL Low 8.6-10.3 [facility] Comment on above: Order Comment: No: D o not add to previous draw Performed By: #### 8 5123 #### [facility] [address] [place] [address], [facility] Chloride molar conc 110 mmol/L High 98-107 [facility] Comment on above: Order Comment: No: D o not add to previous draw Performed By: #### 8 5123 #### [facility] [address] [place] [address], [facility] CO2 molar conc 22 mmol/L Normal 21-31 [facility] Comment on above: Order Comment: No: D o not add to previous draw Performed By: #### 8 5123 #### [facility] [address] [place] [address], [facility] Creatinine mass conc 0.60 mg/dL Normal 0.60-1.20 [facility] Comment on above: Order Comment: No: D o not add to previous draw Performed By: #### 8 5123 #### [facility] [address] [place] [address], [place] GFR/1.73 sq M predicted among blacks MDRD vol rate/area (S/P/Bld) mL/min/{1.73_m2} Normal >60 [facility] Comment on above: Order Comment: No: D o not add to previous draw Performed By: #### 8 5123 #### [facility] [address] [place] [address], [place] GFR/1.73 sq M predicted among non-blacks MDRD vol rate/area (S/P/Bld) mL/min/{1.73_m2} Normal >60 [facility] Comment on above: Order Comment: No: D o not add to previous draw Performed By: #### 8 5123 #### [facility] [address] [place] [address], [facility] Glucose mass conc 85 mg/dL Normal 70-100 [facility] Comment on above: Order Comment: No: D o not add to previous draw Performed By: #### 8 5123 #### [facility] [address] [place] [address], [facility] Potassium molar conc 3.8 mmol/L Normal 3.5-5.1 [facility] Comment on above: Order Comment: No: D o not add to previous draw Performed By: #### 8 5123 #### [facility] [address] [place] [address], [place] Sodium molar conc 141 mmol/L Normal 136-145 [facility] Comment on above: Order Comment: No: D o not add to previous draw Performed By: #### 8 5123 #### [facility] [address] [facility] [place] [address] Urea nitrogen mass conc 7 mg/dL Normal 7-25 [facility] Comment on above: Order Comment: No: D o not add to previous draw Performed By: #### 8 5123 #### [facility] [address] [facility] [place] [address], [facility] CBC W/DIFFon 05-26-2018 ABS BASOPHILS 0.0 10*3/uL Normal 0.0-0.2 [facility] Comment on above: Order Comment: No: D o not add to previous draw Performed By: #### 8 5123 #### [facility] [address] [facility]. [address] ABS IMM GRANS 0.0 10*3/uL Normal 0.0-0.2 [facility] Comment on above: Order Comment: No: D o not add to previous draw Performed By: #### 8 5123 #### [facility] [address] [facility]. [address] ABS NEUTROPHILS 1.9 10*3/uL Normal 1.6-7.6 [facility] Comment on above: Order Comment: No: D o not add to previous draw Performed By: #### 8 5123 #### [facility] [address] [facility]. [address] Basophils #/vol (Bld) 1.2 % High 0.0-1.0 [facility] Comment on above: Order Comment: No: D o not add to previous draw Performed By: #### 8 5123 #### [facility] [address] [facility]. [address] Eosinophils #/vol (Bld) 0.1 10*3/uL Normal 0.0-0.5 [facility] Comment on above: Order Comment: No: D o not add to previous draw Performed By: #### 8 5123 #### [facility] [address] [facility] [place] [address], [facility] Eosinophils/100 WBC (Bld) 4.0 % Normal 0.0-6.0 [facility] Comment on above: Order Comment: No: D o not add to previous draw Performed By: #### 8 5123 #### [facility] [address] [place] [address], [facility] Erythrocyte distribution width Ratio (RBC) 14.6 % Normal 11.5-15.0 [facility] Comment on above: Order Comment: No: D o not add to previous draw Performed By: #### 8 5123 #### [facility] [address] [place] [address], [facility] Hematocrit Volume Fraction (Bld) 35.2 % Low 36.0-45.0 [facility] Comment on above: Order Comment: No: D o not add to previous draw Performed By: #### 8 5123 #### [facility] [address] [place] [address], [facility] Hemoglobin mass conc (Bld) 10.9 g/dL Low 12.0-15.0 [facility] Comment on above: Order Comment: No: D o not add to previous draw Performed By: #### 8 5123 #### [facility] [address] [place] [address], [facility] IMMATURE GRANS 0.6 % Normal 0.0-1.0 [facility] Comment on above: Order Comment: No: D o not add to previous draw Performed By: #### 8 5123 #### [facility] [address] [place] [address], [facility] Lymphocytes #/vol (Bld) 1.0 10*3/uL Low 1.2-4.0 [facility] Comment on above: Order Comment: No: D o not add to previous draw Performed By: #### 8 5123 #### [facility] [address] [place] [id number], [facility] Lymphocytes/100 WBC (Bld) 29.3 % Normal 20.0-45.0 [facility] Comment on above: Order Comment: No: D o not add to previous draw Performed By: #### 8 5123 #### [facility] [address] [place] [address], [facility] MCH Entitic mass (RBC) 27.8 pg Normal 27.0-33.0 [facility] Comment on above: Order Comment: No: D o not add to previous draw Performed By: #### 8 5123 #### [facility] [address] [address] MCHC mass conc (RBC) 31.0 g/dL Low 32.0-35.0 [facility] Comment on above: Order Comment: No: D o not add to previous draw Performed By: #### 8 5123 #### [facility] [address] [facility] [address] MCV Entitic volume (RBC) 89.8 fL Normal 82.0-98.0 [facility] Comment on above: Order Comment: No: D o not add to previous draw Performed By: #### 8 5123 #### [facility] [address] [facility] [place] [address], [facility] Monocytes #/vol (Bld) 0.2 10*3/uL Normal 0.1-1.0 [facility] Comment on above: Order Comment: No: D o not add to previous draw Performed By: #### 8 5123 #### [facility] [address] [facility] [place] [id number], [facility] MONOS 7.0 % Normal 5.0-12.0 [facility] Comment on above: Order Comment: No: D o not add to previous draw Performed By: #### 8 5123 #### [facility] [address] [place] [id number], [facility] Neutrophils/100 WBC (Bld) 57.9 % Normal 40.0-72.0 [facility] Comment on above: Order Comment: No: D o not add to previous draw Performed By: #### 8 5123 #### [facility] [address] Nucleated RBC/100 WBC Ratio (Bld) 0 % Normal 0-0 [facility] Comment on above: Order Comment: No: D o not add to previous draw Performed By: #### 8 5123 #### [facility] [address] [facility] [place] [address], [facility] PLAT CNT 175 10*3/uL Normal 150-400 [facility] Comment on above: Order Comment: No: D o not add to previous draw Performed By: #### 8 5123 #### [facility] [address] RBC #/vol (Bld) 3.92 10*6/uL Normal 3.80-5.00 [facility] Comment on above: Order Comment: No: D o not add to previous draw Performed By: #### 8 5123 #### [facility] [address] [facility] [address] WBC #/vol (Bld) 3.28 10*3/uL Low 4.00-10.60 [facility] Comment on above: Order Comment: No: D o not add to previous draw Performed By: #### 8 5123 #### [facility] [address] EEG Reporton 05-26-2018 EEG Report Name: Shabana Stallworth [facility] MR#: [id number] Age: 58 Physician: Colt Boggs M.D. Date: 05/24/2018, Day #2. Lab#: Date of : 1960 Patient Type: I NEURODIAGNOSTIC SERVICES REPORT [address] [place] [id number] Board of the [place] [employer] Accredited Laboratory STUDY: Clinical Neurophysiology [...] May 25, 2018, and is suggestive of [id number]-wi-[id number] diffuse encephalopathy. No clear epileptiform discharges or EEG seizures were seen during this recording. There was no push button event. Electronically Signed by: Raghu Matson MD 06/02/2018 09:51 P Raghu Matson MD Date Dict: 05/25/2018/09:23 Dipak/Raghu Matson MD Date Trans: 05/26/2018 07:34 A/luis e [id number]_[id number] cc: Colt Boggs M.D. [address] [facility] [address] [facility] [address] Normal [facility] MAGNESIUM BLOODon 05-26-2018 Magnesium mass conc 1.9 mg/dL Normal 1.9-2.7 [facility] Comment on above: Order Comment: No: D o not add to previous draw Performed By: #### 8 5123 #### [facility] [address] [place] [address], [facility] PHOSPHORUS BLOODon 9 Phosphate mass conc 2.7 mg/dL Normal 2.5-5.0 [facility] Comment on above: Order Comment: No: D o not add to previous draw Performed By: #### 8 5123 #### [facility] [address] [facility] [place], [place] [id number] [place] [address] *CSF CULTUREon 05-25-2018 *CSF CULTURE Clinical Report: (D) Specimen/Source: CSF/Tube 3 Collected: 05/25/2018 15:00 Status: Final Last Updated: 05/30/2018 06:30 (1) Lumbar Puncture. GRAM (Final) No Polys Seen No Bacteria Seen CYTOSPUN (Final) This Gram Stain was done on a cytocentrifuged specimen CULT RES (Final) No Growth Day 5 Normal [facility] Comment on above: Order Comment: No: D o not add to previous draw Performed By: #### 1 0054 #### [facility] [address] [facility] [place] [place] [address], [facility] ALBUMIN FLUID MISCon 019 Albumin mass conc g/dL Normal [facility] Comment on above: Order Comment: No: D o not add to previous draw Result Comment: The reference range and other method performance specifications have not been established for this test in fluids. the test result should be integrated into the clinical context for interpretation. Performed By: #### 1 0054 #### [facility] [address] [place] [address], [facility] ARTERIAL BLOOD GAS WITH ICAo n 05-25-2018 BASE EXCESS -2 mmol/L Normal -2-2 [facility] Comment on above: Performed By: #### 102 #### [facility] [address] [place] [address], [facility] DELIVERY SYSTEMS MV Normal [facility] Comment on above: Performed By: #### 3 #### [facility] [address] [place] [address], [place] FIO2 40 % Normal 21-100 [facility] Comment on above: Performed By: #### 102 #### [facility] [address] [place] [address], [facility] HCO3 molar conc (Bld) 24 mmol/L Normal 23-27 [facility] Comment on above: Performed By: #### 102 #### [facility] [address] [place] [address], [facility] IONIZED CALCIUM 1.16 mmol/L Normal 1.13-1.32 [facility] Comment on above: Performed By: #### 102 #### [facility] [address] [place] [address], [facility] MIN VOLUME 5.8 Normal [facility] Comment on above: Performed By: #### 102 #### [facility] [address] [place] [address], [place] MODALITY AC Normal [facility] Comment on above: Performed By: #### 3 #### [facility] [address] [place] [address], [facility] Oxygen ppres (Bld) 131 mm[Hg] Critically high 75-100 T [facility] Comment on above: Performed By: #### 102 #### [facility] [address] [place] [address], [facility] Oxygen saturation in Blood 96.3 % Normal 94.0-97.0 [facility] Comment on above: Performed By: #### 5 0103 #### [facility] [address] [place] [address], [facility] PCO2 44 mmHg Normal 35-45 [facility] Comment on above: Performed By: #### 5 0103 #### [facility] [address] [place] [address], [place] PEEP 8.0 CMH20 Normal [facility] Comment on above: Performed By: #### 5 0103 #### [facility] [address] [place] [address], [place] pH (Bld) 7.34 [pH] Low 7.35-7.45 [facility] Comment on above: Performed By: #### 5 0103 #### [facility] [address] [place] [address], [facility] TIDAL VOLUME (VT) CC 400 Normal [facility] Comment on above: Performed By: #### 5 0103 #### [facility] [address] [place] [address], [facility] BASIC METABOLIC PANELon 05-15 Calcium mass conc 7.8 mg/dL Low 8.6-10.3 [facility] Comment on above: Order Comment: No: D o not add to previous draw Performed By: #### 5 0103 #### [facility] [address] [place] [address], [facility] Chloride molar conc 111 mmol/L High 98-107 [facility] Comment on above: Order Comment: No: D o not add to previous draw Performed By: #### 5 0103 #### [facility] [address] [place] [address], [facility] CO2 molar conc 22 mmol/L Normal 21-31 [facility] Comment on above: Order Comment: No: D o not add to previous draw Performed By: #### 5 3 #### [facility] [address] [place] [address], [facility] Creatinine mass conc 0.75 mg/dL Normal 0.60-1.20 [facility] Comment on above: Order Comment: No: D o not add to previous draw Performed By: #### 5 0103 #### [facility] [address] [place] [address], [place] GFR/1.73 sq M predicted among blacks MDRD vol rate/area (S/P/Bld) mL/min/{1.73_m2} Normal >60 [facility] Comment on above: Order Comment: No: D o not add to previous draw Performed By: #### 5 0103 #### [facility] [address] [place] [address], [place] GFR/1.73 sq M predicted among non-blacks MDRD vol rate/area (S/P/Bld) mL/min/{1.73_m2} Normal >60 [facility] Comment on above: Order Comment: No: D o not add to previous draw Performed By: #### 5 0103 #### [facility] [address] [place] [address], [facility] Glucose mass conc 111 mg/dL High 70-100 [facility] Comment on above: Order Comment: No: D o not add to previous draw Performed By: #### 5 0103 #### [facility] [address] [place] [address], [place] Potassium molar conc 3.3 mmol/L Low 3.5-5.1 [facility] Comment on above: Order Comment: No: D o not add to previous draw Performed By: #### 5 0103 #### [facility] [address] [place] [address], [place] Sodium molar conc 139 mmol/L Normal 136-145 [facility] Comment on above: Order Comment: No: D o not add to previous draw Performed By: #### 5 0103 #### [facility] [address] [place] [address], [place] Urea nitrogen mass conc 10 mg/dL Normal 7-25 [facility] Comment on above: Order Comment: No: D o not add to previous draw Performed By: #### 5 0103 #### [facility] [address] CBC W/DIFFon 05-25-2018 ABS BASOPHILS 0.0 10*3/uL Normal 0.0-0.2 [facility] Comment on above: Order Comment: No: D o not add to previous draw Performed By: #### 5 0103 #### [facility] [address] ABS IMM GRANS 0.0 10*3/uL Normal 0.0-0.2 [facility] Comment on above: Order Comment: No: D o not add to previous draw Performed By: #### 5 0103 #### [facility] [address] ABS NEUTROPHILS 2.9 10*3/uL Normal 1.6-7.6 [facility] Comment on above: Order Comment: No: D o not add to previous draw Performed By: #### 5 0103 #### [facility] [address] Basophils #/vol (Bld) 0.7 % Normal 0.0-1.0 [facility] Comment on above: Order Comment: No: D o not add to previous draw Performed By: #### 5 0103 #### [facility] [address] [place] [address], [facility] Eosinophils #/vol (Bld) 0.1 10*3/uL Normal 0.0-0.5 [facility] Comment on above: Order Comment: No: D o not add to previous draw Performed By: #### 5 0103 #### [facility] [address] [place] [address], [facility] Eosinophils/100 WBC (Bld) 2.9 % Normal 0.0-6.0 [facility] Comment on above: Order Comment: No: D o not add to previous draw Performed By: #### 5 0103 #### [facility] [address] [facility]. [address] Erythrocyte distribution width Ratio (RBC) 14.2 % Normal 11.5-15.0 [facility] Comment on above: Order Comment: No: D o not add to previous draw Performed By: #### 5 0103 #### [facility] [address] Hematocrit Volume Fraction (Bld) 33.4 % Low 36.0-45.0 [facility] Comment on above: Order Comment: No: D o not add to previous draw Performed By: #### 5 0103 #### [facility] [address] Hemoglobin mass conc (Bld) 10.8 g/dL Low 12.0-15.0 [facility] Comment on above: Order Comment: No: D o not add to previous draw Performed By: #### 5 0103 #### [facility] [address] [place] [address], [facility] IMMATURE GRANS 0.2 % Normal 0.0-1.0 [facility] Comment on above: Order Comment: No: D o not add to previous draw Performed By: #### 5 0103 #### [facility] [address] Lymphocytes #/vol (Bld) 1.1 10*3/uL Low 1.2-4.0 [facility] Comment on above: Order Comment: No: D o not add to previous draw Performed By: #### 5 0103 #### [facility] [address] [place] [address], [facility] Lymphocytes/100 WBC (Bld) 24.4 % Normal 20.0-45.0 [facility] Comment on above: Order Comment: No: D o not add to previous draw Performed By: #### 5 0103 #### [facility] [address] MCH Entitic mass (RBC) 27.9 pg Normal 27.0-33.0 [facility] Comment on above: Order Comment: No: D o not add to previous draw Performed By: #### 5 0103 #### [facility] [address] MCHC mass conc (RBC) 32.3 g/dL Normal 32.0-35.0 [facility] Comment on above: Order Comment: No: D o not add to previous draw Performed By: #### 5 0103 #### [facility] [address] MCV Entitic volume (RBC) 86.3 fL Normal 82.0-98.0 [facility] Comment on above: Order Comment: No: D o not add to previous draw Performed By: #### 5 0103 #### [facility] [address] [facility]. [address] Monocytes #/vol (Bld) 0.3 10*3/uL Normal 0.1-1.0 [facility] Comment on above: Order Comment: No: D o not add to previous draw Performed By: #### 5 3 #### [facility] [address] [facility] [address] MONOS 7.0 % Normal 5.0-12.0 [facility] Comment on above: Order Comment: No: D o not add to previous draw Performed By: #### 5 0103 #### [facility] [address] Neutrophils/100 WBC (Bld) 64.8 % Normal 40.0-72.0 [facility] Comment on above: Order Comment: No: D o not add to previous draw Performed By: #### 5 3 #### [facility] [address] [place] [address], [facility] Nucleated RBC/100 WBC Ratio (Bld) 0 % Normal 0-0 [facility] Comment on above: Order Comment: No: D o not add to previous draw Performed By: #### 5 0103 #### [facility] [address] [place] [address], [place] PLAT CNT 172 10*3/uL Normal 150-400 [facility] Comment on above: Order Comment: No: D o not add to previous draw Performed By: #### 5 0103 #### [facility] [address] [place] [address], [facility] RBC #/vol (Bld) 3.87 10*6/uL Normal 3.80-5.00 [facility] Comment on above: Order Comment: No: D o not add to previous draw Performed By: #### 5 0103 #### [facility] [address] [place] [address], [facility] WBC #/vol (Bld) 4.43 10*3/uL Normal 4.00-10.60 [facility] Comment on above: Order Comment: No: D o not add to previous draw Performed By: #### 5 0103 #### [facility] [address] [place] [address], [facility] CSF CELL COUNTon 05-25-2018 FLUID APPEAR ALL 4 TUBES: CLEAR A ND COLORLESS Normal [facility] Comment on above: Order Comment: No: D o not add to previous draw Performed By: #### 1 0054 #### [facility] [address] [place] [address], [facility] FLUID VOLUME 16.5 ml Normal [facility] Comment on above: Order Comment: No: D o not add to previous draw Performed By: #### 1 0054 #### [facility] [address] [place] [address], [facility] Lymphocytes/100 WBC (Bld) 48 % High 0-0 [facility] Comment on above: Order Comment: No: D o not add to previous draw Performed By: #### 1 0054 #### [facility] [address] [place] [address], [facility] MACROPHAGE 11 % Normal [facility] Comment on above: Order Comment: No: D o not add to previous draw Performed By: #### 1 0054 #### [facility] [address] [place] [address], [facility] OTHER F1 TOTAL 68 WBC SEEN ON DIFF DONE ON CYTOSPIN PREP Normal [facility] Comment on above: Order Comment: No: D o not add to previous draw Result Comment: [facility]u lt [facility] on 05/26/2018 09:25. The previous value was TOTAL 68 WBC SEEN ON DIFF DONE ON CYTOSPIN PREP. Performed By: #### 1 0054 #### [facility] [address] [facility]. [address] OTHER F3 Checked by Patrick walters M.D. Normal [facility] Comment on above: Order Comment: No: D o not add to previous draw Result Comment: Resu lt changed by [facility] on 05/26/2018 09:25. The previous value was Preliminary report; verified report to follow. Performed By: #### 1 0054 #### [facility] [address] [facility] [place] [address], [facility] RBC #/vol (Bld) 2 mm3 High 0-0 [facility] Comment on above: Order Comment: No: D o not add to previous draw Performed By: #### 1 0054 #### [facility] [address] [facility] [place] [address], [facility] RBC % CRENATION 0 % Normal 0-0 [facility] Comment on above: Order Comment: No: D o not add to previous draw Performed By: #### 1 0054 #### [facility] [address] SEGS 9 % High 0-0 [facility] Comment on above: Order Comment: No: D o not add to previous draw Performed By: #### 1 0054 #### [facility] [address] [place] [address], [facility] SITE LUMBAR, TUBE 4 Normal [facility] Comment on above: Order Comment: No: D o not add to previous draw Performed By: #### 1 0054 #### [facility] [address] WBC #/vol (Bld) 2 mm3 High 0-0 [facility] Comment on above: Order Comment: No: D o not add to previous draw Performed By: #### 1 0054 #### [facility] [address] XANTHOCHROMIA NONE SEEN Normal [facility] Comment on above: Order Comment: No: D o not add to previous draw Performed By: #### 1 0054 #### [facility] [address] DILANTINon 05-25-2018 DILANTIN (PHENYTOIN) 7.7 mcg/mL Low 10.0-20.0 [facility] Comment on above: Order Comment: No: D o not add to previous draw Performed By: #### 5 0103 #### [facility] [address] EEG Reporton 05-25-2018 EEG Report Name: Shabana Stallworth [facility] MR#: [id number] Age: 58 Physician: Colt Boggs M.D. Date: 05/23/2018-05/24/2018 Lab#: [id number], day 1 Date of : 1960 Patient Type: I NEURODIAGNOSTIC SERVICES REPORT [address] [place], [place] [address] Board of the [place] [employer] Accredited Laboratory HISTORY: This video/EEG [...] Marinelli M.D. Ph.D Date Trans: 05/24/2018 10:34 P/luis e [id number] cc: Colt Boggs M.D. [address] [place] [address] [address] [facility] [address] Normal [facility] ENCEPHALOPATHY, AUTOIMMUNE C SFon 05-25-2018 ENCEPHALOPATHY AUTOIMMUNE EVAL, CSF Results faxed to ordering physician and sent to HIM Normal [facility] Comment on above: Performed By: #### 3 1018 #### [facility] [address] [facility] [place] [address], [facility] ENCEPHALOPATHY, AUTOIMMUNE S ERUMon 05-25-2018 ENCEPHALOPATHY EVALUATION Results faxed to ordering physician and sent to HIM Normal [facility] Comment on above: Performed By: #### 3 1018 #### [facility] [address] [facility] [place] [address], [facility] FLUID SPECIFIC GRAVITYon SPEC GRAV 1.005 Normal [facility] Comment on above: Order Comment: No: D o not add to previous draw Performed By: #### 8 5123 #### [facility] [address] [facility] [place] [address], [facility] FREE DILANTIN (UNBOUND)on FREE DILANTIN 1.0 mcg/mL Normal 1.0-2.0 [facility] Comment on above: Order Comment: No: D o not add to previous draw Performed By: #### 5 0103 #### [facility] [address] [facility] [place] [address], [facility] GLUCOSE CSFon 05-25-2018 GLUCOSE CSF 52 mg/dL Normal 40-70 [facility] Comment on above: Order Comment: No: D o not add to previous draw Performed By: #### 1 0054 #### [facility] [address] [facility] [place] [address], [facility] KEPPRA ILon 05-25-2018 IL Normal [facility] Comment on above: Order Comment: No: D o not add to previous draw KEPPRA 18 ug/mL Normal [facility] Comment on above: Order Comment: No: D [...] LUMBAR PUNCTURE DIAGNOSTICon 05-25-2018 LUMBAR PUNCTURE DIAGNOSTIC [facility] [address] [place] [address] Patient Name: SHABANA STALLWORTH : 1960 Sex: F Age: Race: White Pt. Location: [place] [address] Patient Status: I Ordered Date: 05/25/2018 9:10:00 [...] risks are acceptable. Consent was obtained. Timeout: [place] protocol timeout verification performed. PROCEDURE: Lumbar puncture [...] detected. Electronically signed by:Kacie Arnold. Transcribed by: [email or web address], User Resident: Electronically Signed by: KACIE ARNOLD @ 05/25/2018 06:13 PM Normal [facility] Comment on above: Order Comment: No: D o not add to previous draw MRI BRAIN TEMPORAL LOBE W WO CONTRASTon 05-25-2018 MRI BRAIN TEMPORAL LOBE W WO CONTRAST [facility] [address] [place] [id number] Patient Name: SHABANA STALLWORTH : 1960 Sex: F Age: Race: White Pt. 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 Transcribed by: [email or web address], User Resident: Electronically Signed by: KACIE ARNOLD @ 05/26/2018 04:08 PM Normal [facility] Comment on above: Order Comment: No: D o not add to previous draw PROTHROMBIN TIMEon 9 INR Coag RelTime (PPP) 1.10 {INR} Normal 0.91-1.16 [facility] Comment on above: Order Comment: No: D [...] 1995;[id number]. Performed By: #### 1 0054 #### [address] Prothrombin time (PT) Coag time (PPP) 14.2 s Normal 12.3-14.8 [facility] Comment on above: Order Comment: No: D o not add to previous draw Result Comment: ALL RESULTS MUST BE INTERPRETED WITH RESPECT TO BLOOD DRAWING ARTIFACT OR DILUTION ERROR OF ANTICOAGULANT AT THE TIME OF SAMPLING. Performed By: #### 1 0054 #### [facility] 3000 [facility]. [address] TOTAL PROTEIN CSFon 05-25-19 19 TOTAL PROTEIN CSF 93.0 mg/dL High 20.0-45.0 [facility] Comment on above: Order Comment: No: D o not add to previous draw Performed By: #### 1 0054 #### [facility] 3000 [facility]. [address] TPO ANTIBODY [id number] TPO ANTIBODY <0.3 Normal 0.0-9.0 [facility] Comment on above: Order Comment: SPECI MEN IS CSF. PLEASE RUN WITH DISCLAIMER. SPOKE WITH CLARISSAREFERENCE NUMBER [id number] results should be interpreted with caution. Assay wasperformed at client's request on a sub-optimal specimen. Result Comment: Perf ormed by [employer], [address] [place] [id number] [email or web address], Jack Torres MD - Lab. Director VANCOMYCIN TIMEDon 9 VANCOMYCIN TIMED 12.6 mcg/mL Normal [facility] Comment on above: Performed By: #### 1 0054 #### [facility] 3000 [facility]. [address] VANCOMYCIN TIMED 30.2 mcg/mL Normal [facility] Comment on above: Order Comment: No: D o not add to previous draw Performed By: #### 2 1408 #### [facility] [address] [facility] [place] [address], [facility] VANCOMYCIN TROUGHon 05-25-19 19 VANCOMYCIN TROU 10.9 mcg/mL Normal 5.0-20.0 [facility] Comment on above: Performed By: #### 5 0103 #### [facility] [address] [facility]. [address] *AFB BLOOD CULTUREon 019 *AFB BLOOD CULTURE Clinical Report: (V) Specimen: BLOOD CULTURE Collected: 05/24/2018 12:48 Status: Pending Last Updated: 05/26/2018 15:38 CULT RES (Prelim) Culture In Progress No Growth To Date Normal [facility] Comment on above: Performed By: #### 8 5123 #### [facility] [address] *BLOOD CULTUREon 05-24-2018 Bacteria identified Cx Nom (Bld) Clinical Report: (D) Specimen: BLOOD CULTURE Collected: 05/24/2018 14:47 Status: Final Last Updated: 05/30/2018 06:16 CULT RES (Final) No Growth Day 5 Normal [facility] Comment on above: Performed By: #### 2 1408 #### [facility] [address] Bacteria identified Cx Nom (Bld) Clinical Report: (D) Specimen: BLOOD CULTURE Collected: 05/24/2018 12:48 Status: Final Last Updated: 05/30/2018 06:16 CULT RES (Final) No Growth Day 5 Normal [facility] Comment on above: Performed By: #### 2 1408 #### [facility] [address] *FUNGAL BLOOD CULTUREon 05-15 *FUNGAL BLOOD CULTURE Clinical Report: (D) Specimen: BLOOD CULTURE Collected: 05/24/2018 12:48 Status: Final Last Updated: 07/06/2018 11:17 (1) No: Do not add to previous draw CULT RES (Final) No growth after 42 days of incubation Normal [facility] Comment on above: Order Comment: No: D o not add to previous draw Performed By: #### 8 5123 #### [facility] [address] [place] [address], [facility] ANAon 05-24-2018 Nuclear Ab IF titer (S) <1:40 Normal <1:40,1:40 [facility] Comment on above: Order Comment: No: D o not add to previous draw Performed By: #### 2 1408 #### [facility] [address] [place] [address], [facility] ANCA IGG WITH REFLEX [id number] on 05-24-2018 ANCA <1:20 Normal <1:20 [facility] Comment on above: Order Comment: No: D [...] collagen vascular disease or arthritis. Performed by [employer], [address] [place] [id number] [email or web address], Jack Torres MD - Lab. Director ANTI DNAon 05-24-2018 ANTI DNA <1:10 Normal <1:10 [facility] Comment on above: Order Comment: No: D o not add to previous draw Performed By: #### 2 1408 #### [facility] [address] [facility] [place] [address], [place] ANTI-BETA 2 GLYCOPROTEIN 1on 05-24-2018 ANTI B2GP1 IGG 0.0 g units Normal 0.0-19.9 [facility] Comment on above: Order Comment: No: D o not add to previous draw Performed By: #### 3 1018 #### [facility] [address] [facility] [place] [address], [place] ANTI B2GP1 IGM 3.6 m units Normal 0.0-19.9 [facility] Comment on above: Order Comment: No: D o not add to previous draw Performed By: #### 3 1018 #### [facility] [address] [place] [address], [place] ANTICARDIOLIPIN ANTIBODYon 0 05-24-2018 CARDIOLIPIN IGG 7.3 GPL Normal 0.0-22.9 [facility] Comment on above: Order Comment: No: D o not add to previous draw Performed By: #### 3 1018 #### [facility] [address] [place] [address], [facility] CARDIOLIPIN IGM 5.5 MPL Normal 0.0-10.9 [facility] Comment on above: Order Comment: No: D o not add to previous draw Performed By: #### 3 1018 #### [facility] [address] [place] [address], [facility] ARTERIAL BLOOD GAS WITH ICAo n 05-24-2018 BASE EXCESS -3 mmol/L Low -2-2 [facility] Comment on above: Performed By: #### 3 1018 #### [facility] [address] [facility] [address] DELIVERY SYSTEMS MV Normal [facility] Comment on above: Performed By: #### 3 1018 #### [facility] [address] [place] [address], [facility] FIO2 40 % Normal 21-100 [facility] Comment on above: Performed By: #### 3 1018 #### [facility] [address] [place] [address], [facility] HCO3 molar conc (Bld) 22 mmol/L Low 23-27 [facility] Comment on above: Performed By: #### 3 1018 #### [facility] [address] [place] [address], [facility] IONIZED CALCIUM 1.14 mmol/L Normal 1.13-1.32 [facility] Comment on above: Performed By: #### 3 1018 #### [facility] [address] [place] [address], [facility] MIN VOLUME 5.8 Normal [facility] Comment on above: Performed By: #### 3 1018 #### [facility] [address] [place] [address], [facility] MODALITY AC Normal [facility] Comment on above: Performed By: #### 3 1018 #### [facility] [address] [place] [address], [place] Oxygen ppres (Bld) 106 mm[Hg] Critically high 75-100 T [facility] Comment on above: Performed By: #### 3 1018 #### [facility] [address] [place] [address], [place] Oxygen saturation in Blood 95.3 % Normal 94.0-97.0 [facility] Comment on above: Performed By: #### 3 1018 #### [facility] [address] [place] [address], [place] PCO2 37 mmHg Normal 35-45 [facility] Comment on above: Performed By: #### 3 1018 #### [facility] [address] [place] [address], [place] PEEP 8.0 CMH20 Normal [facility] Comment on above: Performed By: #### 3 1018 #### [facility] [address] [place] [address], [place] PF RATIO 265 mmHg Normal 50-400 [facility] Comment on above: Performed By: #### 3 1018 #### [facility] [address] [place] [address], [place] pH (Bld) 7.38 [pH] Normal 7.35-7.45 [facility] Comment on above: Performed By: #### 3 1018 #### [facility] [address] [place] [address], [place] TIDAL VOLUME (VT) CC 400 Normal [facility] Comment on above: Performed By: #### 3 1018 #### [facility] [address] [place] [address], [place] BASIC METABOLIC PANELon 05-15 Calcium mass conc 8.0 mg/dL Low 8.6-10.3 [facility] Comment on above: Order Comment: No: D o not add to previous draw Performed By: #### 3 1018 #### [facility] [address] [place] [address], [place] Chloride molar conc 104 mmol/L Normal 98-107 [facility] Comment on above: Order Comment: No: D o not add to previous draw Performed By: #### 3 1018 #### [facility] [address] [place] [address], [place] CO2 molar conc 23 mmol/L Normal 21-31 [facility] Comment on above: Order Comment: No: D o not add to previous draw Performed By: #### 3 1018 #### [facility] [address] [place] [address], [place] Creatinine mass conc 0.99 mg/dL Normal 0.60-1.20 [facility] Comment on above: Order Comment: No: D o not add to previous draw Performed By: #### 3 1018 #### [facility] [address] [place] [address], [place] GFR/1.73 sq M predicted among blacks MDRD vol rate/area (S/P/Bld) mL/min/{1.73_m2} Normal >60 [facility] Comment on above: Order Comment: No: D o not add to previous draw Performed By: #### 3 1018 #### [facility] [address] [place] [address], [place] GFR/1.73 sq M predicted among non-blacks MDRD vol rate/area (S/P/Bld) 58 ml/min/1.73sq m Abnormal >60 [facility] Comment on above: Order Comment: No: D o not add to previous draw Performed By: #### 3 1018 #### [facility] [address] [place] [address], [place] Glucose mass conc 162 mg/dL High 70-100 [facility] Comment on above: Order Comment: No: D o not add to previous draw Performed By: #### 3 1018 #### [facility] [address] [place] [address], [facility] Potassium molar conc 3.8 mmol/L Normal 3.5-5.1 [facility] Comment on above: Order Comment: No: D o not add to previous draw Performed By: #### 3 1018 #### [facility] [address] [place] [address], [facility] Sodium molar conc 135 mmol/L Low 136-145 [facility] Comment on above: Order Comment: No: D o not add to previous draw Performed By: #### 3 1018 #### [facility] [address] [place] [id number], [facility] Urea nitrogen mass conc 15 mg/dL Normal 7-25 [facility] Comment on above: Order Comment: No: D o not add to previous draw Performed By: #### 3 1018 #### [facility] [address] [place], [place] [id number] [place] [address] CBC COMPLETE BLOOD COUNTon 0 - Erythrocyte distribution width Ratio (RBC) 13.7 % Normal 11.5-15.0 [facility] Comment on above: Order Comment: No: D o not add to previous draw Performed By: #### 3 1018 #### [facility] [address] [place] [address], [facility] Hematocrit Volume Fraction (Bld) 36.6 % Normal 36.0-45.0 [facility] Comment on above: Order Comment: No: D o not add to previous draw Performed By: #### 3 1018 #### [facility] [address] [place] [address], [facility] Hemoglobin mass conc (Bld) 11.8 g/dL Low 12.0-15.0 [facility] Comment on above: Order Comment: No: D o not add to previous draw Performed By: #### 3 1018 #### [facility] [address] [place] [address], [facility] MCH Entitic mass (RBC) 27.6 pg Normal 27.0-33.0 [facility] Comment on above: Order Comment: No: D o not add to previous draw Performed By: #### 3 1018 #### [facility] [address] [place] [address], [facility] MCHC mass conc (RBC) 32.2 g/dL Normal 32.0-35.0 [facility] Comment on above: Order Comment: No: D o not add to previous draw Performed By: #### 3 1018 #### [facility] [address] [place] [address], [facility] MCV Entitic volume (RBC) 85.7 fL Normal 82.0-98.0 [facility] Comment on above: Order Comment: No: D o not add to previous draw Performed By: #### 3 1018 #### [facility] [address] [place] [address], [facility] Nucleated RBC/100 WBC Ratio (Bld) 0 % Normal 0-0 [facility] Comment on above: Order Comment: No: D o not add to previous draw Performed By: #### 3 1018 #### [facility] [address] [place] [id number], [facility] PLAT CNT 204 10*3/uL Normal 150-400 [facility] Comment on above: Order Comment: No: D o not add to previous draw Performed By: #### 3 1018 #### [facility] [address] [place] [id number], [facility] RBC #/vol (Bld) 4.27 10*6/uL Normal 3.80-5.00 [facility] Comment on above: Order Comment: No: D o not add to previous draw Performed By: #### 3 1018 #### [facility] [address] [place] [id number], [place] WBC #/vol (Bld) 8.94 10*3/uL Normal 4.00-10.60 [facility] Comment on above: Order Comment: No: D o not add to previous draw Performed By: #### 3 1018 #### [facility] [address] [place] [address], [facility] COMPLEMENT 3on 05-24-2018 COMPLEMENT 3 134 mg/dL Normal 79-152 [facility] Comment on above: Order Comment: No: D o not add to previous draw Performed By: #### 5 0103 #### [facility] [address] [place] [address], [facility] COMPLEMENT 405-24-2018 COMPLEMENT 4 28 mg/dL Normal 16-38 [facility] Comment on above: Order Comment: No: D o not add to previous draw Performed By: #### 5 0103 #### [facility] [address] [facility] [place] [address], [facility] CRYOGLOBULIN ILon 05-24-2018 CRYOGLOBULIN 0 mg/dL Normal 0-10 [facility] CYCLIC CITRULLINATED PEPTIDE AB [id number] 05-24-2018 CYCLIC CIT PEP 6 Units Normal 0-19 [facility] Comment on above: Order Comment: No: D [...] be monitored and testing repeated. Performed by [employer], [address] [place] [id number] [email or web address], Jack Torres MD - Lab. Director DRVVT SCREENon 05-24-2018 DRVVT SCREEN 1.04 RATIO Normal 0.00-1.20 [facility] Comment on above: Order Comment: No: D o not add to previous draw Performed By: #### 1 0054 #### [facility] [address] EEG Reporton 05-24-2018 EEG Report Name: Shabana Stallworth [facility] MR#: [id number] Age: 58 Physician: Colt Boggs M.D. Date: 05/23/2018 Lab#: [id number] Date of : 1960 Patient Type: I NEURODIAGNOSTIC SERVICES REPORT [address] [place], [place] [id number] Board of the [place] [employer] Accredited Laboratory HISTORY: This EEG [...] Ph.D Date Trans: 05/24/2018 05:02 Dipak/luis e [id number] cc: Colt Boggs M.D. [address] [place] [id number] Normal [facility] FREE DILANTIN (UNBOUND)on FREE DILANTIN 1.2 mcg/mL Normal 1.0-2.0 [facility] Comment on above: Order Comment: No: D o not add to previous draw2x could not get Performed By: #### 3 1018 #### [facility] [address] [facility] [place] [address], [facility] LUPUS ANTICOAGULANTon 2018 LUPUS ANTICOAGUL Negative Normal NEGATIVE [facility] Comment on above: Order Comment: No: D o not add to previous draw Result Comment: BY H EXAGONAL PHASE PHOSPHOLIPID METHODOLOGY Performed By: #### 2 1408 #### [facility] [address] [place] [address], [facility] MAGNESIUM BLOODon 05-24-2018 Magnesium mass conc 1.7 mg/dL Low 1.9-2.7 [facility] Comment on above: Order Comment: No: D o not add to previous draw Performed By: #### 3 1018 #### [facility] [address] [place] [address], [facility] PHOSPHORUS BLOODon 9 Phosphate mass conc 3.5 mg/dL Normal 2.5-5.0 [facility] Comment on above: Order Comment: No: D o not add to previous draw Performed By: #### 3 1018 #### [facility] [address] PROCALCITONINon 05-24-2018 Protein mass conc 0.18 ng/mL High 0.00-0.10 [facility] Comment on above: Order Comment: No: D [...] PCT<0.5ng/mL Performed By: #### 5 0103 #### [facility] [address] PTT-LAon 05-24-2018 aPTT Coag time (Bld) 37.3 s Normal 31.0-43.0 [facility] Comment on above: Order Comment: No: D o not add to previous draw Performed By: #### 2 1408 #### [facility] [address] [place] [address], [facility] RHEUMATOID FACTOR SERUMon RA <20 Normal 0-20 [facility] Comment on above: Order Comment: No: D o not add to previous draw Performed By: #### 5 0103 #### [facility] [address] [place] [address], [facility] SJOGRENS ANTIBODIESon 2018 SS-A Negative Normal NEG,NEGATIVE ,Neg [facility] Comment on above: Order Comment: No: D o not add to previous draw Performed By: #### 2 1408 #### [facility] [address] [place] [address], [facility] SS-B Negative Normal NEG,NEGATIVE ,Neg [facility] Comment on above: Order Comment: No: D o not add to previous draw Performed By: #### 2 1408 #### [facility] [address] [place] [address], [facility] SMOOTH MUSCLE ABon 9 SMOOTH MUSC AB 1:20 Abnormal NONE DETECTED [facility] Comment on above: Order Comment: No: D o not add to previous draw Result Comment: NONE DETECTED: LESS THAN 1:20 WEAKLY POSITIVE: 1:20 - 1:40 SUGGESTIVE OF CHRONIC HEPATITIS: 1:80 OR GREATER NOTE: FOR WEAKLY POSITIVE RESULTS, TITER MAY BE PRESENT IN ACUTE VIRAL HEPATITIS, INFECTIOUS MONONUCLEOSIS OR MALIGNANCY. Performed By: #### 2 1408 #### [facility] [address] [place] [address], [facility] URINALYSIS REFLEXon 05-24-19 19 Appearance Nom (U) CLEAR Normal CLEAR [facility] Comment on above: Order Comment: No: D o not add to previous drawCriteria for reflexing a culture was not met. Please call the lab [id number] within 24 hours of collection time if culture is needed Performed By: #### 3 1018 #### [facility] [address] [place] [address], [place] Bilirubin mass conc Negative Normal NEGATIVE [facility] Comment on above: Order Comment: No: D o not add to previous drawCriteria for reflexing a culture was not met. Please call the lab [email or web address] within 24 hours of collection time if culture is needed Performed By: #### 3 1018 #### [facility] [address] [place] [address], [place] BLOOD MODERATE Abnormal NEGATIVE [facility] Comment on above: Order Comment: No: D o not add to previous drawCriteria for reflexing a culture was not met. Please call the lab [email or web address] within 24 hours of collection time if culture is needed Performed By: #### 3 1018 #### [facility] [address] [place] [address], [place] Color Nom (U) YELLOW Normal YELLOW [facility] Comment on above: Order Comment: No: D o not add to previous drawCriteria for reflexing a culture was not met. Please call the lab [id number] within 24 hours of collection time if culture is needed Performed By: #### 3 1018 #### [facility] [address] [place] [address], [place] EPIS OCC Normal FEW,OCC,NONE SEEN [facility] Comment on above: Order Comment: No: D o not add to previous drawCriteria for reflexing a culture was not met. Please call the lab [email or web address] within 24 hours of collection time if culture is needed Performed By: #### 3 1018 #### [facility] [address] [place] [address], [place] Glucose mass conc Negative Normal NEGATIVE [facility] Comment on above: Order Comment: No: D o not add to previous drawCriteria for reflexing a culture was not met. Please call the lab [email or web address] within 24 hours of collection time if culture is needed Performed By: #### 3 1018 #### [facility] [address] [place] [address], [place] KETONE Negative Normal NEGATIVE [facility] Comment on above: Order Comment: No: D o not add to previous drawCriteria for reflexing a culture was not met. Please call the lab [id number] within 24 hours of collection time if culture is needed Performed By: #### 3 1018 #### [facility] [address] [place] [address], [facility] LEUK BARRETT Negative Normal NEGATIVE [facility] Comment on above: Order Comment: No: D o not add to previous drawCriteria for reflexing a culture was not met. Please call the lab [id number] within 24 hours of collection time if culture is needed Performed By: #### 3 1018 #### [facility] [address] [facility] [place] [address], [facility] MUCUS THREADS OCC Abnormal NONE SEEN [facility] Comment on above: Order Comment: No: D o not add to previous drawCriteria for reflexing a culture was not met. Please call the lab [email or web address] within 24 hours of collection time if culture is needed Performed By: #### 3 1018 #### [facility] [address] [facility] [place] [address], [facility] Nitrite Ql (U) Negative Normal NEGATIVE [facility] Comment on above: Order Comment: No: D o not add to previous drawCriteria for reflexing a culture was not met. Please call the lab [email or web address] within 24 hours of collection time if culture is needed Performed By: #### 3 1018 #### [facility] [address] [place] [address], [facility] pH (Bld) 5.0 Normal 5.0-8.0 [facility] Comment on above: Order Comment: No: D o not add to previous drawCriteria for reflexing a culture was not met. Please call the lab [id number] within 24 hours of collection time if culture is needed Performed By: #### 3 1018 #### [facility] [address] [place] [address], [facility] Protein mass conc (U) Negative Normal NEGATIVE [facility] Comment on above: Order Comment: No: D o not add to previous drawCriteria for reflexing a culture was not met. Please call the lab [id number] within 24 hours of collection time if culture is needed Performed By: #### 3 1018 #### [facility] [address] [facility] [place] [address], [facility] RBC #/vol (U) 21-50 Abnormal NONE SEEN [facility] Comment on above: Order Comment: No: D o not add to previous drawCriteria for reflexing a culture was not met. Please call the lab [email or web address] within 24 hours of collection time if culture is needed Performed By: #### 3 1018 #### [facility] [address] SPEC GRAV 1.023 High 1.015-1.020 [facility] Comment on above: Order Comment: No: D o not add to previous drawCriteria for reflexing a culture was not met. Please call the lab [id number] within 24 hours of collection time if culture is needed Performed By: #### 3 1018 #### [facility] [address] URIC ACID CRYSTAL OCC Abnormal NONE SEEN [facility] Comment on above: Order Comment: No: D o not add to previous drawCriteria for reflexing a culture was not met. Please call the lab [email or web address] within 24 hours of collection time if culture is needed Performed By: #### 3 1018 #### [facility] 3000 [facility] [place] [address], [facility] WBC UA 3-5 Abnormal NONE SEEN [facility] Comment on above: Order Comment: No: D o not add to previous drawCriteria for reflexing a culture was not met. Please call the lab [id number] within 24 hours of collection time if culture is needed Performed By: #### 3 1018 #### [facility] 3000 [facility] [place] [address], [facility] *RAPID FLU AANDB BY ELDON Londono 05-23-2018 *RAPID FLU AANDB BY MOLECULAR Clinical Report: (D) Specimen: NASAL SWAB Collected: 05/23/2018 11:11 Status: Final Last Updated: 05/23/2018 11:48 FLUA RNA (Final) Negative FLUB RNA (Final) Negative Normal [facility] Comment on above: Performed By: #### 3 1018 #### [facility] [address] [place] [address], [facility] AMMONIA BLOODon 05-23-2018 Ammonia mass conc (P) 39 umol/L Normal 16-53 [facility] Comment on above: Order Comment: No: D o not add to previous draw Performed By: #### 2 1408 #### [facility] [address] [place] [address], [facility] ARTERIAL BLOOD GAS WITH ICAo n 05-23-2018 BASE EXCESS -1 mmol/L Normal -2-2 [facility] Comment on above: Performed By: #### 3 1018 #### [facility] [address] [place] [address], [facility] DELIVERY SYSTEMS MV Normal [facility] Comment on above: Performed By: #### 3 1018 #### [facility] [address] [facility] [place] [address], [facility] FIO2 50 % Normal 21-100 [facility] Comment on above: Performed By: #### 3 1018 #### [facility] [address] [place] [address], [facility] HCO3 molar conc (Bld) 22 mmol/L Low 23-27 [facility] Comment on above: Performed By: #### 3 1018 #### [facility] [address] [place] [address], [facility] IONIZED CALCIUM 1.12 mmol/L Low 1.13-1.32 [facility] Comment on above: Performed By: #### 3 1018 #### [facility] [address] [place] [address], [facility] MIN VOLUME 11.2 Normal [facility] Comment on above: Performed By: #### 3 1018 #### [facility] [address] [place] [address], [facility] MODALITY A/C Normal [facility] Comment on above: Performed By: #### 3 1018 #### [facility] [address] [place] [address], [facility] Oxygen ppres (Bld) 131 mm[Hg] Critically high 75-100 T [facility] Comment on above: Performed By: #### 3 1018 #### [facility] [address] [place] [address], [facility] Oxygen saturation in Blood 96.0 % Normal 94.0-97.0 [facility] Comment on above: Performed By: #### 3 1018 #### [facility] [address] [place] [address], [facility] PCO2 29 mmHg Low 35-45 [facility] Comment on above: Performed By: #### 3 1018 #### [facility] [address] [place] [address], [facility] PEEP 8.0 CMH20 Normal [facility] Comment on above: Performed By: #### 3 1018 #### [facility] [address] [place] [address], [facility] PF RATIO 262 mmHg Normal 50-400 [facility] Comment on above: Performed By: #### 3 1018 #### [facility] [address] [place] [address], [facility] pH (Bld) 7.48 [pH] High 7.35-7.45 [facility] Comment on above: Performed By: #### 3 1018 #### [facility] [address] TIDAL VOLUME (VT) CC 450 Normal [facility] Comment on above: Performed By: #### 3 1018 #### [facility] [address] BNP (B-TYPE NATRIURETIC PEPT PATRICIA)on 05-23-2018 Natriuretic peptide B mass conc (Bld) 39 pg/mL Normal 0-100 [facility] Comment on above: Order Comment: No: D o not add to previous draw Result Comment: Give n the appropriate clinical setting a BNP result of >100 pg/mL indicates congestive heart failure. Performed By: #### 8 5123 #### [facility] [address] CBC W/DIFFon 05-23-2018 ABS BASOPHILS 0.0 10*3/uL Normal 0.0-0.2 [facility] Comment on above: Order Comment: No: D o not add to previous draw Performed By: #### 5 0103 #### [facility] [address] ABS IMM GRANS 0.0 10*3/uL Normal 0.0-0.2 [facility] Comment on above: Order Comment: No: D o not add to previous draw Performed By: #### 5 0103 #### [facility] [address] ABS NEUTROPHILS 5.0 10*3/uL Normal 1.6-7.6 [facility] Comment on above: Order Comment: No: D o not add to previous draw Performed By: #### 5 0103 #### [facility] 3000 [facility]. [address] Basophils #/vol (Bld) 0.4 % Normal 0.0-1.0 [facility] Comment on above: Order Comment: No: D o not add to previous draw Performed By: #### 5 0103 #### [facility] 3000 [facility]. [address] Eosinophils #/vol (Bld) 0.0 10*3/uL Normal 0.0-0.5 [facility] Comment on above: Order Comment: No: D o not add to previous draw Performed By: #### 5 0103 #### [facility] [address] [place] [address], [facility] Eosinophils/100 WBC (Bld) 0.0 % Normal 0.0-6.0 [facility] Comment on above: Order Comment: No: D o not add to previous draw Performed By: #### 5 0103 #### [facility] [address] [facility] [address] Erythrocyte distribution width Ratio (RBC) 13.2 % Normal 11.5-15.0 [facility] Comment on above: Order Comment: No: D o not add to previous draw Performed By: #### 5 3 #### [facility] [address] [facility] [address] Hematocrit Volume Fraction (Bld) 43.7 % Normal 36.0-45.0 [facility] Comment on above: Order Comment: No: D o not add to previous draw Performed By: #### 5 0103 #### [facility] [address] [facility]. [address] Hemoglobin mass conc (Bld) 14.6 g/dL Normal 12.0-15.0 [facility] Comment on above: Order Comment: No: D o not add to previous draw Performed By: #### 5 0103 #### [facility] [address] [facility] [place] [address], [facility] IMMATURE GRANS 0.3 % Normal 0.0-1.0 [facility] Comment on above: Order Comment: No: D o not add to previous draw Performed By: #### 5 3 #### [facility] [address] [place] [address], [facility] Lymphocytes #/vol (Bld) 1.7 10*3/uL Normal 1.2-4.0 [facility] Comment on above: Order Comment: No: D o not add to previous draw Performed By: #### 5 0103 #### [facility] [address] [facility] [address] Lymphocytes/100 WBC (Bld) 24.8 % Normal 20.0-45.0 [facility] Comment on above: Order Comment: No: D o not add to previous draw Performed By: #### 5 0103 #### [facility] [address] [facility] [address] MCH Entitic mass (RBC) 27.7 pg Normal 27.0-33.0 [facility] Comment on above: Order Comment: No: D o not add to previous draw Performed By: #### 5 0103 #### [facility] [address] [facility] [address] MCHC mass conc (RBC) 33.4 g/dL Normal 32.0-35.0 [facility] Comment on above: Order Comment: No: D o not add to previous draw Performed By: #### 5 0103 #### [facility] 3000 [facility]. [address] MCV Entitic volume (RBC) 82.9 fL Normal 82.0-98.0 [facility] Comment on above: Order Comment: No: D o not add to previous draw Performed By: #### 5 0103 #### [facility] [address] [facility] [place] [address], [facility] Monocytes #/vol (Bld) 0.3 10*3/uL Normal 0.1-1.0 [facility] Comment on above: Order Comment: No: D o not add to previous draw Performed By: #### 5 0103 #### [facility] [address] [place] [address], [facility] MONOS 3.6 % Low 5.0-12.0 [facility] Comment on above: Order Comment: No: D o not add to previous draw Performed By: #### 5 0103 #### [facility] [address] [place] [address], [facility] Neutrophils/100 WBC (Bld) 70.9 % Normal 40.0-72.0 [facility] Comment on above: Order Comment: No: D o not add to previous draw Performed By: #### 5 0103 #### [facility] [address] [place] [address], [facility] Nucleated RBC/100 WBC Ratio (Bld) 0 % Normal 0-0 [facility] Comment on above: Order Comment: No: D o not add to previous draw Performed By: #### 5 0103 #### [facility] [address] [place] [address], [facility] PLAT CNT 241 10*3/uL Normal 150-400 [facility] Comment on above: Order Comment: No: D o not add to previous draw Performed By: #### 5 0103 #### [facility] [address] [place] [address], [facility] RBC #/vol (Bld) 5.27 10*6/uL High 3.80-5.00 [facility] Comment on above: Order Comment: No: D o not add to previous draw Performed By: #### 5 0103 #### [facility] [address] [place] [address], [facility] WBC #/vol (Bld) 7.03 10*3/uL Normal 4.00-10.60 [facility] Comment on above: Order Comment: No: D o not add to previous draw Performed By: #### 5 0103 #### [facility] [address] [place] [address], [facility] COMP METABOLIC PANELon 05-23 Albumin mass conc 4.1 g/dL Normal 3.5-5.7 [facility] Comment on above: Order Comment: No: D o not add to previous draw Performed By: #### 2 5508, 21160, 02039, 34100 #### [facility] [address] [place] [address], [place] ALKALINE PHOSPH 58 IU/L Normal 34-104 [facility] Comment on above: Order Comment: No: D o not add to previous draw Performed By: #### 2 5507, 74909, 79081, 65171 #### [facility] [address] [place] [address], [place] ALT enzyme act/vol 43 U/L Normal 7-52 [facility] Comment on above: Order Comment: No: D o not add to previous draw Performed By: #### 2 8, 65854, 69766, 83534 #### [facility] [address] [place] [address], [place] AST enzyme act/vol 30 U/L Normal 13-39 [facility] Comment on above: Order Comment: No: D o not add to previous draw Performed By: #### 2 5507, 10607, 62118, 94546 #### [facility] [address] [place] [address], [place] Bilirubin mass conc 0.5 mg/dL Normal 0.3-1.0 [facility] Comment on above: Order Comment: No: D o not add to previous draw Performed By: #### 2 550, 91475, 63761, 55229 #### [facility] [address] [place] [address], [place] Calcium mass conc 9.4 mg/dL Normal 8.6-10.3 [facility] Comment on above: Order Comment: No: D o not add to previous draw Performed By: #### 2 5508, 04628, 00647, 28989 #### [facility] [address] [place] [address], [place] Chloride molar conc 99 mmol/L Normal 98-107 [facility] Comment on above: Order Comment: No: D o not add to previous draw Performed By: #### 2 8, 66812, 26857, 14819 #### [facility] [address] [place] [address], [place] CO2 molar conc 24 mmol/L Normal 21-31 [facility] Comment on above: Order Comment: No: D o not add to previous draw Performed By: #### 2 5508, 57128, 43905, 79691 #### [facility] [address] [place] [address], [place] Creatinine mass conc 0.97 mg/dL Normal 0.60-1.20 [facility] Comment on above: Order Comment: No: D o not add to previous draw Performed By: #### 2 5508, 36953, 92251, 12784 #### [facility] [address] [place] [address], [facility] GFR/1.73 sq M predicted among blacks MDRD vol rate/area (S/P/Bld) mL/min/{1.73_m2} Normal >60 [facility] Comment on above: Order Comment: No: D o not add to previous draw Performed By: #### 2 5508, 79469, 24781, 09802 #### [facility] [address] [place] [address], [place] GFR/1.73 sq M predicted among non-blacks MDRD vol rate/area (S/P/Bld) 59 ml/min/1.73sq m Abnormal >60 [facility] Comment on above: Order Comment: No: D o not add to previous draw Performed By: #### 2 5508, 07611, 22468, 11592 #### [facility] [address] [place] [address], [place] Glucose mass conc 204 mg/dL High 70-100 [facility] Comment on above: Order Comment: No: D o not add to previous draw Performed By: #### 2 5508, 04397, 37103, 82822 #### [facility] [address] [place] [address], [facility] Potassium molar conc 4.0 mmol/L Normal 3.5-5.1 [facility] Comment on above: Order Comment: No: D o not add to previous draw Performed By: #### 2 5508, 99929, 30072, 42068 #### [facility] [address] [place] [address], [facility] Protein mass conc 7.7 g/dL Normal 6.0-8.3 [facility] Comment on above: Order Comment: No: D o not add to previous draw Performed By: #### 2 5508, 14105, 00878, 23042 #### [facility] [address] [place] [address], [facility] Sodium molar conc 134 mmol/L Low 136-145 [facility] Comment on above: Order Comment: No: D o not add to previous draw Performed By: #### 2 5508, 51757, 17318, 44775 #### [facility] [address] [facility] [place] [address], [facility] Urea nitrogen mass conc 18 mg/dL Normal 7-25 [facility] Comment on above: Order Comment: No: D o not add to previous draw Performed By: #### 2 5508, 63252, 70279, 04005 #### [facility] [address] [facility] [place] [address], [facility] CPKon 05-23-2018 CK enzyme act/vol 47 U/L Normal 30-223 [facility] Comment on above: Performed By: #### 2 5508, 47669, 11177, 19813 #### [facility] [address] [facility] [place] [address], [facility] CT BRAIN W WO CONTRASTon CT BRAIN W WO CONTRAST [facility] [address] [place] [address] [id number] Patient Name: SHABANA STALLWORTH : 1960 Sex: F Age: Race: White Pt. Location: [place] [address] Patient Status: I Ordered Date: 05/23/2018 4:25:00 [...] findings. Electronically signed by:Jewel Barnett. Transcribed by: [email or web address], User Resident: STORMY ACEVEDO Electronically Signed by: JEWEL BARNETT @ 05/24/2018 07:57 AM I personally read this/these film(s) with this resident Normal [facility] Comment on above: Order Comment: R/O S eizure Disorder History and Physicalon 05-23 History and Physical MR#: [id number] [facility] Pt. Name: Shabana Stallworth Admitted: 05/23/2018 Date of : 1960 Attending Physician: Oral Ortiz MD Room #: VALE [id number] Discharge Date: HISTORY AND PHYSICAL CHIEF COMPLAINT: [...] 5.3, she was changed back from the Chireno Thyroid to Synthroid, which she did the [...] A/Oral Ortiz MD Date Trans: 05/23/2018 12:23 P/luis e [id number] Normal [facility] LACTATE BLOODon 05-23-2018 Lactate molar conc 2.1 mmol/L Normal 0.5-2.2 [facility] Comment on above: Order Comment: No: D o not add to previous draw Performed By: #### 1 0054 #### [facility] Zahra SIMON. [address] Operative Reporton 9 Operative Report MR#: [id number] I [facility] Pt. Name: Shabana Stallworth Room #: VALE [id number] Discharge Date: Birthdate: 1960 OPERATIVE REPORT DATE [...] Manuel Dunlap MD Date Trans: 05/23/2018 09:22 P/luis e [id number] cc: Colt Boggs M.D. [address] [place] [address] B [facility] [phone] Normal [facility] POC GLUCOSE LABon 05-23-2018 Glucose mass conc 184 mg/dL High 70-100 [facility] Comment on above: Performed By: #### 8 5499 #### [place] [address], [facility] PORTABLE CHEST 1 VIEWon PORTABLE CHEST 1 VIEW [facility] [address] [place] [phone] Patient Name: SHABANA STALLWORTH : 1960 Sex: F Age: Race: White Pt. Location: [place] [address] Patient Status: I Ordered Date: 05/23/2018 1:15:00 [...] ACEVEDO on 05/23/2018 1:48 PM EST. I, Jweel Barnett, have reviewed the images and report and concur with these findings. Electronically signed by:Jewel Barnett. Transcribed by: [email or web address], User Resident: STORMY ACEVEDO Electronically Signed by: JEWEL BARNETT @ 05/23/2018 08:48 PM I personally read this/these film(s) with this resident Normal [facility] Comment on above: Order Comment: Check NG Tube Position, intubation PROLACTINon 05-23-2018 Protein mass conc 6.23 ng/mL Normal 1.39-24.20 [facility] Comment on above: Performed By: #### 2 5508, 59241, 17272, 28326 #### [facility] [address] [facility] [place] [address], [facility] TSH3 WITH REFLEXon 9 T4 free mass conc 1.23 ng/dL Normal 0.71-1.85 [facility] Comment on above: Order Comment: No: D o not add to previous draw Performed By: #### 2 5508, 04352, 36945, 63111 #### [facility] [address] [place] [address], [facility] TSH 3RD GENERATION 1.62 uIU/mL Normal 0.34-5.60 [facility] Comment on above: Order Comment: No: D o not add to previous draw Performed By: #### 2 5508, 50220, 34281, 65260 #### [facility] [address] [place] [address], [facility] Vital Signs Date Time Vital Sign Value Performing Clinician Jakob tipton 05-30-2018 06:10-0500 Respiratory rate 12 /min COLT BOGGS [facility] Comment on above: Performed By: #### 2 5508, 04576, 66573, 38546 #### [facility] [address] [place] [address], [facility] 05-27-2018 06:54-0500 Respiratory rate 12 /min COLT BOGGS [facility] Comment on above: Performed By: #### 2 5508, 63234, 49455, 71261 #### [facility] [address] [place] [address], [facility] 05-26-2018 07:11-0500 Respiratory rate 12 /min COLT BOGGS [facility] Comment on above: Performed By: #### 8 5123 #### [facility] [address] [place] [address], [facility] 05-25-2018 06:37-0500 Respiratory rate 12 /min COLT BOGGS [facility] Comment on above: Performed By: #### 5 0103 #### [facility] [address] [place] [address], [facility] 05-24-2018 07:31-0500 Respiratory rate 12 /min COLT BOGGS [facility] Comment on above: Performed By: #### 3 1018 #### [facility] [address] [place] [address], [facility] 05-23-2018 18:54-0500 Respiratory rate 12 /min COLT BOGGS [facility] Comment on above: Performed By: #### 3 1018 #### [facility] [address] [place] [address], [facility] Encounters Encounter Date Encounter Type Care Provider Facility Start: 12-22-2023 End: 12-22-2023 ambulatory COLT BOGGS Not Available Start: 12-08-2023 End: 12-08-2023 ambulatory COLT BOGGS Not Available Start: 10-08-2023 End: 10-08-2023 ambulatory COLT Johnny AMBROSE Not Available Start: 06-18-2023 End: 06-18-2023 ambulatory COLT BOGGS Not Available Start: 08-13-2022 End: 08-14-[address] COLT BOGGS . Facility:[facility] Start: 07-04-2022 End: 07-05-[address] COLT BOGGS . Facility:[facility] Start: 06-20-[address] COLT BOGGS . Fac ility:[facility] Start: 02-25-2022 End: 02-26-[address] COLT BOGGS . Facility:[facility] Start: 09-01-2021 End: 09-02-[address] COLT BOGGS . Facility: Start: 05-23-2018 End: 06-03-2018 Evaluation and management of inpatient COLT BOGGS Facility:[facility] Procedures Date Procedure Procedure Detail Performing Clinician Start: 05-25-2018 Drainage of Spinal C anal, Percutaneous Approach, Diagnostic EHAB A [place] Start: 05-25-2018 FLUOROSCOPY OF SPINAL CORD EHAB A [place] Start: 05-23-2018 INSERTION OF ENDOTRA CHEAL AIRWAY INTO TRACHEA, VIA OPENING REG RAHMAN Start: 05-23-2018 MEASURE OF ARTERIAL SATURATION, PERIPHERAL, PERC APPROACH MARC HAINES Start: 05-23-2018 MEASUREMENT OF WEB CONTENT DEVELOPER E LECTR ACTIVITY, INTERNATIONAL SALES REPRESENTATIVE APPROACH MARIBEL MARINELLI Start: 05-23-2018 MONITORING OF WEB CONTENT DEVELOPER EL ECTR ACTIVITY, INTERNATIONAL SALES REPRESENTATIVE APPROACH MARIBEL MARINELLI Start: 05-23-2018 RESPIRATORY VENTILAT ION, GREATER THAN 96 CONSECUTIVE HOURS REG RAHMAN Payers Date Payer Category Payer Medicaid [id number] 1960 Unknown [id number] 2.16.8 [id number] 1960 Unknown [id number] 2.16.84 [id number] 1960 Unknown [id number] 2.16.84 [id number] 1960 Unknown [id number] 2.16.84 [id number] 1960 Unknown [id number] 2.16.84 [id number] 1960 Unknown [id number] 2.16.84 [id number] 1960 Unknown [id number] 2.16.84 [id number] 1960 Unknown [id number] 2.16.84 [id number] 1960 Unknown [id number] 2.16.84 [id number] 1960 Unknown [id number] 2.16.84 [id number] 1959 Unknown [id number] 1957 Unknown [id number] Summary Purpose Family History No Family History Records FoundNo Family History Records FoundNo Family History Records Found Advance Directives No Advanced Directives Records FoundNo Advanced Directives Records FoundNo Advanced Directives Records Found Hospital Course Note MR#: [id number] [facility] Pt. Name: Shabana Stallworth Admitted: 05/23/2018 Discharged: [...] section and content) DATE CREATED AUTHOR 07/07/2018 [facility] DATE CREATED AUTHOR AUTHOR'S ORGANIZ ATION 08/20/2022 [facility] DATE CREATED AUTHOR AUTHOR'S ORGANIZ ATION 12/28/2023 [facility] PERTAINING TO PATIENTS WHO ARE [...] BE BASED ON THE PRIMARY CLINICAL RECORDS. [email or web address] provides no warranty or guarantee of the accuracy or completeness of information in this document.
[2024-01-13 09:13] LABS: Free T4 1.26 ng/dL (0.76-1.46)
[2024-01-13 09:21] LABS: Free T3 2.76 pg/mL (2.18-3.98); Thyroid Stimulating Hormone 3.087 uIU/mL (0.358-3.740)
== END 2024-01-13 08:07 | disposition home or self-care (01) ==
LOC: LAB 08:07
PROVIDERS: PCP Family Medicine; Visit Provider Family Medicine
DX: E03.9 Hypothyroidism, unspecified (principal); E05.00 Thyrotoxicosis with diffuse goiter without thyrotoxic crisis or storm; G93.32 Myalgic encephalomyelitis/chronic fatigue syndrome; I12.9 Hypertensive chronic kidney disease with stage 1 through stage 4 chronic kidney disease, or unspecified chronic kidney disease; N18.31 Chronic kidney disease, stage 3a; E11.22 Type 2 diabetes mellitus with diabetic chronic kidney disease; E78.2 Mixed hyperlipidemia
CPT/HCPCS: 36415; 84439; 84443; 84481

== ENCOUNTER 2024-03-02 08:16 | Outpatient (OUT) | payer MEDICAID, SELFPAY ==
[2024-03-02 10:09] LABS: Free T4 1.35 ng/dL (0.76-1.46)
[2024-03-02 10:23] LABS: Alanine Aminotransferase 39 U/L (14-59); Albumin Globulin Ratio 0.9; Albumin Level 3.6 g/dL (3.4-5.0); Alkaline Phosphatase 58 U/L (46-116); Anion Gap 13.1; Aspartate Amino Transferase 24 U/L (15-37); BUN Creatinine Ratio 15.5; Bilirubin Total 0.5 mg/dL (0.2-1.0); Calcium 9.6 mg/dL (8.5-10.1); Carbon Dioxide 27.1 mmol/L (21.0-32.0); Chloride 101 mmol/L (98-107); Chol HDL Ratio 3.6; Cholesterol 168 mg/dL (<=200); Estimated GFR (African America >60 (>=60 mL/min/1.73m^2); Estimated GFR (Non-African Ame 58 (>=60 mL/min/1.73m^2); Free T3 2.64 pg/mL (2.18-3.98); Globulin 4.2 g/dL; Glucose 173 mg/dL (74-106); HDL Cholesterol 47 mg/dL (40-60); Potassium 4.2 mmol/L (3.5-5.1); Sodium 137 mmol/L (136-145); Total Protein 7.8 g/dL (6.4-8.2); Triglycerides 75 mg/dL (<=150)
[2024-03-02 10:39] LABS: Estimated Average Glucose 192 mg/dL; Glycohemoglobin A1C 8.3 % (4.5-6.2)
== END 2024-03-02 08:17 | disposition home or self-care (01) ==
LOC: LAB 08:17
PROVIDERS: PCP Family Medicine; Visit Provider Family Medicine
DX: E06.3 Autoimmune thyroiditis (principal); E05.00 Thyrotoxicosis with diffuse goiter without thyrotoxic crisis or storm; G93.32 Myalgic encephalomyelitis/chronic fatigue syndrome; I12.9 Hypertensive chronic kidney disease with stage 1 through stage 4 chronic kidney disease, or unspecified chronic kidney disease; N18.31 Chronic kidney disease, stage 3a; E11.22 Type 2 diabetes mellitus with diabetic chronic kidney disease; E78.2 Mixed hyperlipidemia
CPT/HCPCS: 36415; 80053; 80061; 83036; 84439; 84443; 84481

== ENCOUNTER 2024-07-03 11:45 | Outpatient (OUT) | payer MEDICAID, SELFPAY ==
--- OUTSIDE RECORDS SUMMARY | 2024-07-03 11:48 | XMS_ITS | CCD ---
Author Organization [facility] Care Team Providers Care Residential Life Director Name Role Phone COLT BOGGS Referring Unavailable HEMEYER, COLT Primary Care Unavailable RENNO, ANAS Attending Unavailable RENNO, ANAS Admitting Unavailable [place] Procedure Practitioner Unavailab REG Molina Surgeon Unavailable [place] Procedure Practitioner Unavailab MARIBEL Richardson Surgeon Unavail able [place] Procedure Practitioner Unavailab TK Ha A Surgeon Unavailable [place] Procedure Practitioner Unavailab le UNKNOWN, PROVIDER Surgeon [...] Unavailable HEMEYER ., DR DALEY Attending Unavailable Colt Boggs MD Primary Care Provider Colt Boggs MD Unavailable [phone] Colt Boggs MD Primary Care Provider Colt Boggs MD Unavailable COLT BOGGS Attending Unavailable COLT BOGGS Attending Unavailable COLT BOGGS Attending Unavailable COLT BOGGS Referring Unavailable COLT BOGGS Attending Unavailable HEMEYER, EDWARD J Attending Unavailable Allergies Allergy Classification Reported Allergen(s) Allergy Type Date of Onset Reaction(s) Facility (2 sources) Nalbuphine Drug Allergy 4 [facility] Repository (12 sources) Nalbuphine Drug Allergy 3 GI intolerance [facility] (12 sources) Rosuvastatin calcium Propensity to adverse reactions 4 Other [facility] (12 sources) Semaglutide Allergy to substance 3 [facility] Medications Current Medications Medication Drug Class(es) Dates Sig (Normalized) Sig (Original) aspirin 81 mg delayed release oral tablet (12 sources) Platelet Aggregation Inhibitor, Nonsteroidal Anti-inflammatory Drug take 1 tablet by mouth once daily aspirin 81 MG EC tablet Take 81 mg by mouth 1 (one) time each day at the same time. Active biotin 1 mg oral capsule (12 sources) take 1 capsule by mouth once daily biotin 1 MG capsule Take 1 capsule by mouth 1 (one) time each day at the same time. Active 0.5 ml dulaglutide 1.5 mg/ml auto-injector (2 sources) GLP-1 Receptor Agonist Start: 03-15-2024 End: 06-13-2024 inject 0.75 mg by subcutaneous injection every week Dulaglutide (Trulicity) 0.75 MG/0.5ML solution auto-injector Indications: Type 2 diabetes mellitus with stage 3a chronic kidney disease, without long-term current use of insulin (HCC) ([facility]) , Morbid obesity due to excess calories ([facility]) Inject 0.75 mg under the skin 1 (one) time per week 2 mL 03/15/2024 06/13/2024 Active glipiZIDE 5 mg oral tablet (12 sources) Sulfonylurea Start: 01-15-2024 End: 03-15-2024 glipiZIDE (Glucotrol) 5 MG tablet Indications: Type 2 diabetes mellitus with stage 3a chronic kidney disease, without long-term current use of insulin (HCC) ([facility]) Take 2 tablets in the morning and 1 tablet in the evening. 90 tablet 2 01/15/2024 03/15/2024 Discontinued (Therapy completed) Start: 10-23-2023 glipiZIDE (Glu cotrol) 5 MG tablet Indications: Type 2 diabetes mellitus with stage 3a chronic kidney disease, without long-term current use of insulin (HCC) (CMS/HCC) Take 2 tablets in the morning and 1 tablet in the evening. 90 tablet 2 10/23/2023 Active levothyroxine sodium 0.075 mg oral tablet (14 sources) l-Thyroxine Start: 01-15-2024 End: 02-03-2025 take 1 tablet by mouth before mealtime levothyroxine (Synthroid, Levoxyl) 75 MCG tablet Indications: Acquired hypothyroidism (CMS/HCC) Take 1 tablet (75 mcg) by mouth in the morning. Take before meals. 30 tablet 11 02/04/2024 02/03/2025 Active Start: 01-09-2023 End: 01-09-2024 take 1 tablet by mouth before mealtime levothyroxine (Synthroid, Levoxyl) 75 MCG tablet Indications: Acquired hypothyroidism (CMS/HCC) Take 1 tablet (75 mcg) by mouth in the morning. Take before meals. 30 tablet 11 01/09/2023 Active losartan potassium 100 mg oral tablet (14 sources) Angiotensin 2 Receptor Oumar Start: 01-15-2024 End: 06-13-2024 take 1 tablet by mouth once daily losartan (Cozaar) 100 MG tablet Indications: Benign essential hypertension (CMS/HCC) Take 1 tablet (100 mg) by mouth Daily 30 tablet 2 03/15/2024 06/13/2024 Active Start: 10-08-2023 End: 01-06-2024 take 1 tablet by mouth once daily losartan (Cozaar) 100 MG tablet Indications: Benign essential hypertension (CMS/HCC) Take 1 tablet (100 mg) by mouth Daily 30 tablet 2 10/08/2023 Active metFORMIN hydrochloride 1000 mg oral tablet (14 sources) Biguanide Start: 01-15-2024 End: 06-13-2024 take 1 tablet by mouth in the morning metFORMIN (Glucophage) 1000 MG tablet Indications: Type 2 diabetes mellitus with stage 3a chronic kidney disease, without long-term current use of insulin (HCC) (CMS/HCC) Take 1 tablet (1,000 mg) by mouth in the morning and 1 tablet (1,000 mg) in the evening. Take with meals. 60 tablet 2 03/15/2024 06/13/2024 Active Start: 10-08-2023 End: 09-24-2024 take 1 tablet by mouth in the morning metFORMIN (Glucophage) 1000 MG tablet Indications: Type 2 diabetes mellitus with stage 3a chronic kidney disease, without long-term current use of insulin (HCC) (CMS/HCC) Take 1 tablet (1,000 mg) by mouth in the morning and 1 tablet (1,000 mg) in the evening. Take with meals. 60 tablet 2 10/08/2023 Active metoprolol tartrate 50 mg oral tablet (14 sources) beta-Adrenergic Oumar Start: 01-15-2024 End: 06-13-2024 take 1 tablet by mouth in the morning metoprolol tartrate (Lopressor) 50 MG tablet Indications: Benign essential hypertension (CMS/HCC) Take 1 tablet (50 mg) by mouth in the morning and 1 tablet (50 mg) before bedtime. 60 tablet 2 03/15/2024 06/13/2024 Active Start: 10-08-2023 End: 01-06-2024 take 1 tablet by mouth in the morning metoprolol tartrate (Lopressor) 50 MG tablet Indications: Benign essential hypertension (CMS/HCC) Take 1 tablet (50 mg) by mouth in the morning and 1 tablet (50 mg) before bedtime. 60 tablet 2 10/08/2023 Active potassium 99 mg extended release oral tablet (12 sources) take 1 tablet by trace th once daily Potassium 99 MG tablet Take 99 mg by mouth 1 (one) time each day at the same time. Active Problems Active Problems Problem Classification Problem Date Documented Da te Episodic/Chronic Cardiac dysrhythmias (1 source) Tachycardia, unspecified; Translations: [TACHYCARDIA, UNSPECIFIED] Onset: 05-23-2018 Episodic Chronic kidney disease (14 sources) Chronic kidney disease stage 3A ; Translations: [Stage 3a chronic kidney disease (HCC)] Onset: 11-05-2022 11-05-2022 Chronic Chronic kidney disease (1 source) Chronic kidney disease; Translations: [CHRONIC KIDNEY DISEASE STAGE 3A] Onset: 02-28-2022 Diabetes mellitus with complications (20 sources) Type 2 diabetes mellitus with diabetic chronic kidney disease; Translations: [Chronic kidney disease due to type 2 diabetes mellitus] Onset: 02-28-2022 Chronic Diabetes mellitus without complication (1 source) Type 2 diabetes mellitus without complications; Translations: [TYPE 2 DIABETES MELLITUS WITHOUT COMPLICATIONS] Onset: 05-23-2018 Chronic Disorders of lipid metabolism (16 sources) Hyperlipidemia, unspecified; Translations: [Mixed hyperlipidemia] Onset: 05-23-2018 11-05-2022 Chronic Essential hypertension (15 sources) Essential (primary) hypertension; Translations: [Benign essential hypertension] Onset: 05-23-2018 11-05-2022 Chronic Hypertension with complications and secondary hypertension (18 sources) Hypertensive chronic kidney disease with stage 1 through stage 4 chronic kidney disease, or unspecified chronic kidney disease; Translations: [Hypertensive renal disease] Onset: 02-25-2022 Chronic Malaise and fatigue (20 sources) Chronic fatigue, unspecified; Translations: [Chronic fatigue syndrome] Onset: 07-04-2022 Resolved: 01-28-2024 Chronic Other aftercare (1 source) FDC (current) use of aspirin; Translations: [ALF (CURRENT) USE OF ASPIRIN] Onset: 05-23-2018 Episodic Other aftercare (2 sources) Polypharmacy ; Translations: [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] 02-04-2024 Episodic Other aftercare (1 source) [facility] (current) use of oral hypoglycemic drugs; Translations: [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 (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) USE OF ORAL HYPOGLYCEMIC DRUGS] Onset: 05-23-2018 Other connective tissue disease (14 sources) Myalgia caused by statin; Translations: [Myalgia, unspecified site] Onset: 10-22-2023 10-22-2023 Episodic Other hereditary and degenerative nervous system conditions (12 sources) Restless legs; Translations: [Restless legs syndrome] Onset: 11-05-2022 11-05-2022 Chronic Other nervous system disorders (1 source) Encephalopathy, unspecified; Translations: [ENCEPHALOPATHY, UNSPECIFIED] Onset: 05-23-2018 Chronic Other nutritional; endocrine; and metabolic disorders (11 sources) Morbid obesity; Translations: [Morbid (severe) obesity due to excess calories] Onset: 01-28-2024 01-28-2024 Chronic Other nutritional; endocrine; and metabolic disorders (2 sources) Body mass index 30+ - obesity; Translations: [Body mass index (BMI) 35.0-35.9, adult] 03-03-2024 Chronic Residual codes; unclassified (2 sources) Altered [...] WITH HYPOXIA] Onset: 05-23-2018 Episodic Thyroid disorders (20 sources) Hypothyroidism, unspecified; Translations: [Thyrotoxicosis with diffuse goiter without thyrotoxic crisis or storm] Onset: 05-23-2018 11-05-2022 Chronic Unclassified (1 source) AMS, LETHARGY Onset: 05-23-2018 Unclassified (1 source) AMS Onset: 05-23-2018 Past or Other Problems Problem Classification Problem Date Documented Date Episodic/Chronic Administrative/social admission (2 sources) Advance directive discussed with patient; Translations: [Other specified counseling] 12-02-2023 Episodic Complications of surgical procedures or medical care (12 sources) Postgastric surgery syndrome; 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] Onset: 11-05-2022 11-05-2022 Episodic Genitourinary symptoms and ill-defined conditions (2 sources) Microalbuminuria; Translations: [Proteinuria, unspecified] 12-08-2023 Episodic Other diseases of veins and lymphatics (12 sources) Vascular insufficiency; Translations: [Venous insufficiency (chronic) (peripheral)] Onset: 11-05-2022 11-05-2022 Episodic Other nutritional; endocrine; and metabolic disorders (14 sources) Severe obesity; Translations: [Class 2 severe obesity due to excess calories with serious comorbidity and body mass index (BMI) of 35.0 to 35.9 in adult] Onset: 10-22-2023 Resolved: 01-28-2024 10-22-2023 Chronic Other screening for suspected conditions (not mental disorders or infectious disease) (10 sources) Patient encounter status; Translations: [Encounter for screening for malignant neoplasm of colon] 12-02-2023 Episodic Results Test Name Value Interpretation Reference Range Facility ALL THYROXINE (T4) FREEon Free T4 [Mass/Vol] 1.35 ng/dL 0.76 - 1. 46 ng/dL [facility] ALL THYROXINE (T4) FREEon Free T4 [Mass/Vol] 1.26 ng/dL 0.76 - 1. 46 ng/dL [facility] BI MAMMOGRAM SCREENING TOMOS YNTHESIS BILATERALon 12-22-2023 BI MAMMOGRAM SCREENING TOMOSYNTHESIS BILATERAL [...] BY: Ray Castillo M.D. Normal Not Available Laboratory - Chemistry and C hemistry - challengeon 12-08-2023 Albumin DL <= 20 mg/L (U) [Mass/Vol] 10 mg/dL [facility] Albumin/Creatinine DL <= 1.0 mg/L (U) [Ratio] 100 [facility] Creatinine (U) [Mass/Vol] 0.1 mg/dL [facility] No Panel Informationon 12-07 Interpretation and review of laboratory results Normal [facility] GLYCOHEMOGLOBIN A1Con 2022 ADA RECOMMENDATION SEE BELOW Normal [facility] Comment on above: Result Comment: ADA RECOMMENDED LIMIT 4.0 - 6.0 ADA THERAPEUTIC TARGET < 7.0 ACTION SUGGESTED > 7.0 Performed By: #### A 1C #### [facility] [address] [address] [address] Veronica Floyd Glucose [Mass/Vol] 160 mg/dL Normal [facility] Comment on above: Performed By: #### A 1C #### [facility] [address] [place] [address] Dr. Veronica Floyd HbA1c (Bld) [Mass fraction] 7.2 % Critically high 4.5-6.2 Comment on above: Performed By: #### A 1C #### [facility] [address] [place] [address] Dr. Veronica Floyd FREE T3on 07-04-2022 FREE T3 2.59 pg/mlL Normal 2.18-3.98 [facility] Comment on above: Performed By: #### T SH, FT3 #### [facility] [address] [place] [address] Dr. Veronica Floyd FREE T4on 07-04-2022 Free T4 [Mass/Vol] 1.25 ng/dL Normal 0.76-1.46 [facility] Comment on above: Performed By: #### F T4 #### [facility] [address] [place] [address] Dr. Veronica Floyd TSHon 07-04-2022 TSH 3.607 uIU/mL Normal 0.358-3.740 [facility] Comment on above: Performed By: #### T SH, FT3 #### [facility] [address] [place] [address] Dr. Veronica Floyd GLYCOHEMOGLOBIN A1Con 2021 ADA RECOMMENDATION SEE BELOW Normal [facility] Comment on above: Result Comment: ADA RECOMMENDED LIMIT 4.0 - 6.0 ADA THERAPEUTIC TARGET < 7.0 ACTION SUGGESTED > 7.0 Performed By: #### A 1C #### [facility] [address] [place] [address] Dr. Veronica Floyd Glucose [Mass/Vol] 154 mg/dL Normal [facility] Comment on above: Performed By: #### A 1C #### [facility] [address] [place] [address] Dr. Veronica Floyd HbA1c (Bld) [Mass fraction] 7.0 % Critically high 4.5-6.2 Comment on above: Performed By: #### A 1C #### [facility] [address] [address] [address] Veronica Floyd LIPID PROFILEon 02-25-2022 CHOL-HDL RATIO NORM SEE BELOW Normal Comment on above: Result Comment: 3.3 - 4.4 LOW RISK 4.4 - 7.1 AVERAGE RISK 7.1 - 11.0 MODERATE RISK >11.0 HIGH RISK Performed By: #### C MP, LIPID #### [facility] [address] [address] [address] Veronica Floyd Cholesterol [Mass/Vol] 173 mg/dL Normal <=200 Comment on above: Performed By: #### C MP, LIPID #### [facility] [address] [address] [address] Veronica Floyd Cholesterol in HDL [Mass/Vol] 44 mg/dL Normal 40-60 Comment on above: Performed By: #### C MP, LIPID #### [facility] [address] [address] [address] Veronica Floyd Cholesterol in LDL [Mass/Vol] 114.6 mg/dL Normal Comment on above: Performed By: #### C MP, LIPID #### [facility] [address] [address] [address] Veronica Floyd Cholesterol.total/ Cholesterol in HDL [Mass ratio] 3.9 {ratio} Normal Comment on above: Performed By: #### C MP, LIPID #### [facility] [address] [address] [address] Veronica Floyd HDL NORMAL > or = 60 mg/dl - LO W CARDIOVASCULAR RISK <40 mg/dl - HIGH CARDIOVASCULAR RISK Normal Comment on above: Performed By: #### C MP, LIPID #### [facility] [address] [address] [address] Veronica Floyd LDL CALC NORMAL SEE BELOW Normal [facility] Comment on above: Result Comment: <100 mg/dl OPTIMAL 100 - 129 mg/dl NEAR OR ABOVE OPTIMAL 130 - 159 mg/dl BORDERLINE HIGH 160 - 189 mg/dl HIGH >190 mg/dl VERY HIGH Performed By: #### C MP, LIPID #### [facility] [address] [place] [address] Dr. Veronica Floyd Triglyceride [Mass/Vol] 72 mg/dL Normal <=150 Comment on above: Performed By: #### C MP, LIPID #### [facility] [address] [place] [address] Dr. Veronica Floyd VLDL CALC 14.4 mg/dL Normal Comment on above: Performed By: #### C MP, LIPID #### [facility] [address] [place] [address] Dr. Veronica Floyd PROF 14(COMP METB)on 022 Albumin [Mass/Vol] 4.0 g/dL Normal 3.4-5.0 [facility] Comment on above: Performed By: #### C MP, LIPID #### [facility] [address] [place] [address] Dr. Vernoica Floyd Albumin/Globulin [Mass ratio] 1.0 {ratio} Normal Comment on above: Performed By: #### C MP, LIPID #### [facility] [address] [place] [address] Dr. Veronica Floyd ALP [Catalytic activity/Vol] 53 U/L Normal 46-116 Comment on above: Performed By: #### C MP, LIPID #### [facility] [address] [place] [address] Dr. Veronica Floyd ALT [Catalytic activity/Vol] 45 U/L Normal 14-59 Comment on above: Performed By: #### C MP, LIPID #### [facility] [address] [place] [address] Dr. Veronica Floyd Anion gap [Moles/Vol] 9.8 mmol/L Normal Comment on above: Performed By: #### C MP, LIPID #### [facility] [address] [place] [address] Dr. Veronica Floyd AST [Catalytic activity/Vol] 23 U/L Normal 15-37 Comment on above: Performed By: #### C MP, LIPID #### [facility] [address] [place], [place] [id number] Dr. Veronica Floyd Bilirubin [Mass/Vol] 0.3 mg/dL Normal 0.2-1.0 Comment on above: Performed By: #### C MP, LIPID #### [facility] [address] [place] [address] Dr. Veronica Floyd Calcium [Mass/Vol] 9.5 mg/dL Normal 8.5-10.1 [facility] Comment on above: Performed By: #### C MP, LIPID #### [facility] [address] [place] [address] Dr. Veronica Floyd Chloride [Moles/Vol] 101 mmol/L Normal 98-107 Comment on above: Performed By: #### C MP, LIPID #### [facility] [address] [place] [address] Dr. Veronica Floyd CO2 [Moles/Vol] 28.4 mmol/L Normal 21.0-32.0 [facility] Comment on above: Performed By: #### C MP, LIPID #### [facility] [address] [place] [address] Dr. Veronica Floyd Creatinine [Mass/Vol] 0.90 mg/dL Normal 0.55-1.02 Comment on above: Performed By: #### C MP, LIPID #### [facility] [address] [place] [address] Dr. Veronica Floyd EGFR-AF TAJIK >60 Normal >=60 [facility] Comment on above: Performed By: #### C MP, LIPID #### [facility] [address] [place] [address] Dr. Veronica Floyd EGFR-NON AF TAJIK >60 Normal >=60 Comment on above: Performed By: #### C MP, LIPID #### [facility] [address] [place] [address] Dr. Veronica Floyd Globulin (S) [Mass/Vol] 4.1 g/dL Normal Comment on above: Performed By: #### C MP, LIPID #### [facility] [address] [place] [address] Dr. Veronica Floyd Glucose [Mass/Vol] 136 mg/dL Critically high 74-106 [facility] Comment on above: Performed By: #### C MP, LIPID #### [facility] [address] [place] [address] Dr. Veronica Floyd Potassium [Moles/Vol] 4.2 mmol/L Normal 3.5-5.1 Comment on above: Performed By: #### C MP, LIPID #### [facility] [address] [place] [address] Dr. Veronica Floyd Protein [Mass/Vol] 8.1 g/dL Normal 6.4-8.2 [facility] Comment on above: Performed By: #### C MP, LIPID #### [facility] [address] [place] [address] Dr. Veronica Floyd Sodium [Moles/Vol] 135 mmol/L Critically low 136-145 [facility] Comment on above: Performed By: #### C MP, LIPID #### [facility] [address] [place] [address] Dr. Veronica Floyd Urea nitrogen [Mass/Vol] 18.0 mg/dL Normal 7.0-18.0 Comment on above: Performed By: #### C MP, LIPID #### [facility] [address] [place] [address] Dr. Veronica Floyd Urea nitrogen/Creatinin e [Mass ratio] 20.0 mg/mg Normal Comment on above: Performed By: #### C MP, LIPID #### [facility] [address] [place] [address] Dr. Veronica Floyd GLYCOHEMOGLOBIN A1Con 2021 ADA RECOMMENDATION SEE BELOW Normal [facility] Comment on above: Result Comment: ADA RECOMMENDED LIMIT 4.0 - 6.0 ADA THERAPEUTIC TARGET < 7.0 ACTION SUGGESTED > 7.0 Performed By: #### A 1C #### [facility] [address] [place] [address] Dr. Veronica Floyd Glucose [Mass/Vol] 137 mg/dL Normal [facility] Comment on above: Performed By: #### A 1C #### [facility] [address] [place], [place] [address] Dr. Veronica Floyd HbA1c (Bld) [Mass fraction] 6.4 % Critically high 4.5-6.2 [facility] Comment on above: Performed By: #### A 1C #### [facility] [address] [address] [address] Veronica Floyd BASIC METABOLIC PANELon 05-16 Calcium mass conc 9.5 mg/dL Normal 8.6-10.3 [facility] Comment on above: Order Comment: No: D o not add to previous draw Performed By: #### 3 1018 #### [facility] [address] [place] [address], [place] Chloride molar conc 102 mmol/L Normal 98-107 [facility] Comment on above: Order Comment: No: D o not add to previous draw Performed By: #### 3 1018 #### [facility] [address] [place] [address], [place] CO2 molar conc 30 mmol/L Normal 21-31 [facility] Comment on above: Order Comment: No: D o not add to previous draw Performed By: #### 3 1018 #### [facility] [address] [place] [address], [place] Creatinine mass conc 1.14 mg/dL Normal 0.60-1.20 [facility] Comment on above: Order Comment: No: D o not add to previous draw Performed By: #### 3 1018 #### [facility] [address] [place] [address], [place] GFR/1.73 sq M predicted among blacks MDRD vol rate/area (S/P/Bld) 59 ml/min/1.73sq m Abnormal >60 [facility] Comment on above: Order Comment: No: D o not add to previous draw Performed By: #### 3 1018 #### [facility] [address] [place] [address], [facility] GFR/1.73 sq M predicted among non-blacks MDRD vol rate/area (S/P/Bld) 49 ml/min/1.73sq m Abnormal >60 [facility] Comment on above: Order Comment: No: D o not add to previous draw Performed By: #### 3 1018 #### [facility] [address] [place] [address], [facility] Glucose mass conc 132 mg/dL High 70-100 [facility] Comment on above: Order Comment: No: D o not add to previous draw Performed By: #### 3 1018 #### [facility] [address] [place] [address], [facility] Potassium molar conc 3.8 mmol/L Normal 3.5-5.1 [facility] Comment on above: Order Comment: No: D o not add to previous draw Performed By: #### 3 1018 #### [facility] [address] [place] [address], [place] Sodium molar conc 141 mmol/L Normal 136-145 [facility] Comment on above: Order Comment: No: D o not add to previous draw Performed By: #### 3 1018 #### [facility] [address] [place] [address], [facility] Urea nitrogen mass conc 28 mg/dL High 7-25 [facility] Comment on above: Order Comment: No: D o not add to previous draw Performed By: #### 3 1018 #### [facility] [address] [place] [address], [place] CBC COMPLETE BLOOD COUNTon 0 - Erythrocyte distribution width Ratio (RBC) 14.6 % Normal 11.5-15.0 [facility] [facility] Comment on above: Order Comment: No: D o not add to previous draw Performed By: #### 3 1018 #### [facility] [address] [place] [address], [place] Hematocrit Volume Fraction (Bld) 39.7 % Normal 36.0-45.0 [facility] Comment on above: Order Comment: No: D o not add to previous draw Performed By: #### 3 1018 #### [facility] [address] [place] [address], [facility] Hemoglobin mass conc (Bld) 12.8 g/dL Normal 12.0-15.0 [facility] Comment on above: Order Comment: No: D o not add to previous draw Performed By: #### 3 1018 #### [facility] [address] [place] [id number], [facility] MCH Entitic mass (RBC) 27.9 pg Normal 27.0-33.0 [facility] Comment on above: Order Comment: No: D o not add to previous draw Performed By: #### 3 1018 #### [facility] [address] MCHC mass conc (RBC) 32.2 g/dL Normal 32.0-35.0 [facility] Comment on above: Order Comment: No: D o not add to previous draw Performed By: #### 3 1018 #### [facility] [address] [facility] [place] [address], [facility] MCV Entitic volume (RBC) 86.7 fL Normal 82.0-98.0 [facility] Comment on above: Order Comment: No: D o not add to previous draw Performed By: #### 3 1018 #### [facility] [address] [place] [address], [facility] Nucleated RBC/100 WBC Ratio (Bld) 0 % Normal 0-0 [facility] Comment on above: Order Comment: No: D o not add to previous draw Performed By: #### 3 1018 #### [facility] [address] [place] [id number], [facility] PLAT CNT 256 10*3/uL Normal 150-400 [facility] Comment on above: Order Comment: No: D o not add to previous draw Performed By: #### 3 1018 #### [facility] [address] RBC #/vol (Bld) 4.58 10*6/uL Normal 3.80-5.00 [facility] Comment on above: Order Comment: No: D o not add to previous draw Performed By: #### 3 1018 #### [facility] [address] WBC #/vol (Bld) 5.70 10*3/uL Normal 4.00-10.60 [facility] Comment on above: Order Comment: No: D o not add to previous draw Performed By: #### 3 1018 #### [facility] [address] IMMUNOGLOB BLon 06-03-2018 IgA mass conc 364 mg/dL Normal 60-413 [facility] Comment on above: Order Comment: No: D o not add to previous draw Performed By: #### 3 1018 #### [facility] [address] IgG mass conc 1180 mg/dL Normal 591-1540 [facility] Comment on above: Order Comment: No: D o not add to previous draw Performed By: #### 3 1018 #### [facility] [address] IgM mass conc 187 mg/dL Normal 54-285 [facility] Comment on above: Order Comment: No: D o not add to previous draw Performed By: #### 3 1018 #### [facility] [address] IMMUNOGLOBULIN [place] 9 [place] Normal [facility] Comment on above: Order Comment: No: D o not add to previous draw IMMUNOGLOBULIN E 230 IU/mL High <101 [facility] Comment on above: Order Comment: No: D o not add to previous draw POC GLUCOSE LABon 06-03-2018 Glucose mass conc 250 mg/dL High 70-100 [facility] Comment on above: Performed By: #### 3 1018 #### [facility] [address] [place] [address], [place] Glucose mass conc 254 mg/dL High 70-100 [facility] Comment on above: Performed By: #### 3 1018 #### [facility] [address] [place] [address], [place] Glucose mass conc 131 mg/dL High 70-100 [facility] Comment on above: Performed By: #### 3 1018 #### [facility] [address] [place] [address], [place] Glucose mass conc 117 mg/dL High 70-100 [facility] Comment on above: Performed By: #### 3 1018 #### [facility] [address] [place] [address], [place] BASIC METABOLIC PANELon 05-15 Calcium mass conc 9.4 mg/dL Normal 8.6-10.3 [facility] Comment on above: Order Comment: No: D o not add to previous draw Performed By: #### 3 1018 #### [facility] [address] [place] [address], [place] Chloride molar conc 97 mmol/L Low 98-107 [facility] Comment on above: Order Comment: No: D o not add to previous draw Performed By: #### 3 1018 #### [facility] [address] [place] [address], [place] CO2 molar conc 30 mmol/L Normal 21-31 [facility] Comment on above: Order Comment: No: D o not add to previous draw Performed By: #### 3 1018 #### [facility] [address] [place] [address], [place] Creatinine mass conc 1.15 mg/dL Normal 0.60-1.20 [facility] Comment on above: Order Comment: No: D o not add to previous draw Performed By: #### 3 1018 #### [facility] [address] [place] [address], [place] GFR/1.73 sq M predicted among blacks MDRD vol rate/area (S/P/Bld) 59 ml/min/1.73sq m Abnormal >60 [facility] Comment on above: Order Comment: No: D o not add to previous draw Performed By: #### 3 1018 #### [facility] [address] [place] [address], [place] GFR/1.73 sq M predicted among non-blacks MDRD vol rate/area (S/P/Bld) 49 ml/min/1.73sq m Abnormal >60 [facility] Comment on above: Order Comment: No: D o not add to previous draw Performed By: #### 3 1018 #### [facility] [address] [place] [address], [place] Glucose mass conc 172 mg/dL High 70-100 [facility] Comment on above: Order Comment: No: D o not add to previous draw Performed By: #### 3 1018 #### [facility] [address] [place] [address], [place] Potassium molar conc 2.9 mmol/L Low 3.5-5.1 [facility] Comment on above: Order Comment: No: D o not add to previous draw Performed By: #### 3 1018 #### [facility] [address] [place] [address], [place] Sodium molar conc 138 mmol/L Normal 136-145 [facility] Comment on above: Order Comment: No: D o not add to previous draw Performed By: #### 3 1018 #### [facility] [address] [place] [address], [place] Urea nitrogen mass conc 24 mg/dL Normal 7-25 [facility] Comment on above: Order Comment: No: D o not add to previous draw Performed By: #### 3 1018 #### [facility] [address] [place] [address], [facility] HEMOGLOBIN A1Con 06-02-2018 Hemoglobin A1c/Hemoglobin.tot al mass fraction (Bld) 7.1 % High 4.0-6.0 [facility] Comment on above: Order Comment: Yes: Add to Previous draw if able Performed By: #### 3 1018 #### [facility] [address] [place] [address], [facility] Hemoglobin A1c/Hemoglobin.tot al mass fraction (Bld) 157 mg/dL High 70-126 [facility] Comment on above: Order Comment: Yes: Add to Previous draw if able Performed By: #### 3 1018 #### [facility] [address] [facility] [place] [address], [facility] MAGNESIUM BLOODon 06-02-2018 Magnesium mass conc 2.5 mg/dL Normal 1.9-2.7 [facility] Comment on above: Performed By: #### 3 1018 #### [facility] [address] MISCELLANEOUS PATHon 019 RESULT Results faxed to [facility] and sent to HIM Normal [facility] Comment on above: Order Comment: [facility]# [id number] ALLERGEN, FOOD, ALPHA-Gal PANEL CPT 43575 X4 Result Comment: Test performed at [facility], [address] [place] [id number]. Results faxed to Dr. Arroyo at [phone] Performed By: #### 3 1018 #### [facility] [address] [place] [address], [facility] POC GLUCOSE LABon 06-02-2018 Glucose mass conc 243 mg/dL High 70-100 [facility] Comment on above: Performed By: #### 3 1018 #### [facility] [address] [place] [address], [place] Glucose mass conc 236 mg/dL High 70-100 [facility] Comment on above: Performed By: #### 3 1018 #### [facility] [address] [place] [address], [place] Glucose mass conc 154 mg/dL High 70-100 [facility] Comment on above: Performed By: #### 3 1018 #### [facility] [address] [place] [address], [place] Glucose mass conc 215 mg/dL High 70-100 [facility] Comment on above: Performed By: #### 3 1018 #### [facility] [address] [place] [address], [facility] BASIC METABOLIC PANELon - Calcium mass conc 9.5 mg/dL Normal 8.6-10.3 [facility] Comment on above: Order Comment: No: D o not add to previous draw Performed By: #### 3 1018 #### [facility] [address] [place] [address], [place] Chloride molar conc 95 mmol/L Low 98-107 [facility] Comment on above: Order Comment: No: D o not add to previous draw Performed By: #### 3 1018 #### [facility] [address] [place] [address], [place] CO2 molar conc 30 mmol/L Normal 21-31 [facility] Comment on above: Order Comment: No: D o not add to previous draw Performed By: #### 3 1018 #### [facility] [address] [place] [address], [facility] Creatinine mass conc 0.78 mg/dL Normal 0.60-1.20 [facility] Comment on above: Order Comment: No: D o not add to previous draw Performed By: #### 3 1018 #### [facility] [address] [place] [address], [place] GFR/1.73 sq M predicted among blacks MDRD vol rate/area (S/P/Bld) mL/min/{1.73_m2} Normal >60 [facility] Comment on above: Order Comment: No: D o not add to previous draw Performed By: #### 3 1018 #### [facility] [address] [place] [address], [facility] GFR/1.73 sq M predicted among non-blacks MDRD vol rate/area (S/P/Bld) mL/min/{1.73_m2} Normal >60 [facility] Comment on above: Order Comment: No: D o not add to previous draw Performed By: #### 3 1018 #### [facility] [address] [place] [address], [facility] Glucose mass conc 160 mg/dL High 70-100 [facility] Comment on above: Order Comment: No: D o not add to previous draw Performed By: #### 3 1018 #### [facility] [address] [place] [address], [facility] Potassium molar conc 3.1 mmol/L Low 3.5-5.1 [facility] Comment on above: Order Comment: No: D o not add to previous draw Performed By: #### 3 1018 #### [facility] [address] [place] [address], [place] Sodium molar conc 138 mmol/L Normal 136-145 [facility] Comment on above: Order Comment: No: D o not add to previous draw Performed By: #### 3 1018 #### [facility] [address] [place] [address], [facility] Urea nitrogen mass conc 16 mg/dL Normal 7-25 [facility] Comment on above: Order Comment: No: D o not add to previous draw Performed By: #### 3 1018 #### [facility] [address] [place] [address], [place] CBC W/DIFFon 02-18-2019 ABS BASOPHILS 0.0 10*3/uL Normal 0.0-0.2 [facility] Comment on above: Order Comment: No: D o not add to previous draw Performed By: #### 2 8, 63586, 31432, 58441 #### [facility] [address] [place] [address], [facility] ABS IMM GRANS 0.1 10*3/uL Normal 0.0-0.2 [facility] Comment on above: Order Comment: No: D o not add to previous draw Performed By: #### 2 8, 99248, 00736, 34627 #### [facility] [address] [place] [address], [facility] ABS NEUTROPHILS 5.1 10*3/uL Normal 1.6-7.6 [facility] Comment on above: Order Comment: No: D o not add to previous draw Performed By: #### 2 550, 18050, 11089, 33633 #### [facility] [address] [place] [address], [facility] Basophils #/vol (Bld) 0.5 % Normal 0.0-1.0 [facility] Comment on above: Order Comment: No: D o not add to previous draw Performed By: #### 2 550, 20498, 51263, 57359 #### [facility] [address] [place] [address], [facility] Eosinophils #/vol (Bld) 0.0 10*3/uL Normal 0.0-0.5 [facility] Comment on above: Order Comment: No: D o not add to previous draw Performed By: #### 2 550, 25442, 05745, 26331 #### [facility] [address] [place] [address], [facility] Eosinophils/100 WBC (Bld) 0.1 % Normal 0.0-6.0 [facility] Comment on above: Order Comment: No: D o not add to previous draw Performed By: #### 2 5507, 44040, 57895, 60598 #### [facility] [address] [place] [address], [facility] Erythrocyte distribution width Ratio (RBC) 14.4 % Normal 11.5-15.0 [facility] Comment on above: Order Comment: No: D o not add to previous draw Performed By: #### 2 5507, , 47303, 93271 #### [facility] [address] [place] [address], [facility] Hematocrit Volume Fraction (Bld) 39.8 % Normal 36.0-45.0 [facility] Comment on above: Order Comment: No: D o not add to previous draw Performed By: #### 2 5507, 31925, 26586, 47662 #### [facility] [address] Hemoglobin mass conc (Bld) 13.4 g/dL Normal 12.0-15.0 [facility] Comment on above: Order Comment: No: D o not add to previous draw Performed By: #### 2 5507, 09221, 58100, 93982 #### [facility] [address] [place] [address], [facility] IMMATURE GRANS 1.6 % High 0.0-1.0 [facility] Comment on above: Order Comment: No: D o not add to previous draw Performed By: #### 2 5507, 74161, 35176, 72249 #### [facility] [address] [place] [id number], [facility] Lymphocytes #/vol (Bld) 1.7 10*3/uL Normal 1.2-4.0 [facility] Comment on above: Order Comment: No: D o not add to previous draw Performed By: #### 2 550, 64853, 89141, 68574 #### [facility] [address] [place] [address], [place] Lymphocytes/100 WBC (Bld) 22.3 % Normal 20.0-45.0 [facility] Comment on above: Order Comment: No: D o not add to previous draw Performed By: #### 2 5507, 90428, 15711, 91946 #### [facility] [address] [place] [address], [facility]CH Entitic mass (RBC) 27.7 pg Normal 27.0-33.0 [facility] Comment on above: Order Comment: No: D o not add to previous draw Performed By: #### 2 5507, 69792, 14154, 99003 #### [facility] [address] [place] [address], [facility] MCHC mass conc (RBC) 33.7 g/dL Normal 32.0-35.0 [facility] Comment on above: Order Comment: No: D o not add to previous draw Performed By: #### 2 5507, 92367, 90550, 84367 #### [facility] [address] MCV Entitic volume (RBC) 82.4 fL Normal 82.0-98.0 [facility] Comment on above: Order Comment: No: D o not add to previous draw Performed By: #### 2 5507, 75998, 79262, 78737 #### [facility] [address] [place] [address], [facility] Monocytes #/vol (Bld) 0.7 10*3/uL Normal 0.1-1.0 [facility] Comment on above: Order Comment: No: D o not add to previous draw Performed By: #### 2 5507, 87266, 33524, 87276 #### [facility] [address] [place] [address], [facility] MONOS 8.7 % Normal 5.0-12.0 [facility] Comment on above: Order Comment: No: D o not add to previous draw Performed By: #### 2 5508, 71319, 20806, 18530 #### [facility] [address] [place] [address], [facility] Neutrophils/100 WBC (Bld) 66.8 % Normal 40.0-72.0 [facility] Comment on above: Order Comment: No: D o not add to previous draw Performed By: #### 2 5508, 82325, 90761, 70539 #### [facility] [address] [place] [address], [facility] Nucleated RBC/100 WBC Ratio (Bld) 0 % Normal 0-0 [facility] Comment on above: Order Comment: No: D o not add to previous draw Performed By: #### 2 5508, 11217, 93206, 44156 #### [facility] [address] [place] [id number], [facility] PLAT CNT 293 10*3/uL Normal 150-400 [facility] Comment on above: Order Comment: No: D o not add to previous draw Performed By: #### 2 5508, 74993, 44414, 49422 #### [facility] [address] [place] [address], [facility] RBC #/vol (Bld) 4.83 10*6/uL Normal 3.80-5.00 [facility] Comment on above: Order Comment: No: D o not add to previous draw Performed By: #### 2 5508, 59345, 00200, 84140 #### [facility] [address] [place] [address], [place] WBC #/vol (Bld) 7.70 10*3/uL Normal 4.00-10.60 [facility] Comment on above: Order Comment: No: D o not add to previous draw Performed By: #### 2 5508, 18460, 75184, 47228 #### [facility] [address] [place] [id number], [facility] EEG Reporton 06-01-2018 EEG Report Name: GayleShabana [facility] MR#: [id number] Age: 58 Physician: Colt Boggs M.D. Date: From 6:30 on May 30, 2018 until 0630 hours on May 31, 2018 Lab#: [id number] Date of : 1960 Patient Type: I NEURODIAGNOSTIC SERVICES REPORT [address] [place], [place] [address] Board of the [employer] [employer] Accredited social media director: Jesse Muir. EEG DURATION: 23:33 and 0 [...] Raghu Matson MD Date Dict: 05/31/2018/10:33 Dipak/Raghu aMtson MD Date Trans: 06/01/2018 05:26 Dipak/luis e [id number] cc: Colt Boggs M.D. [address] [place] [address] [facility] [address] Normal [facility] MAGNESIUM BLOODon 06-01-2018 Magnesium mass conc 2.3 mg/dL Normal 1.9-2.7 [facility] Comment on above: Performed By: #### 2 5508, 44466, 51948, 52669 #### [facility] [address] [place] [address], [facility] POC GLUCOSE LABon 06-01-2018 Glucose mass conc 332 mg/dL High 70-100 [facility] Comment on above: Performed By: #### 3 1018 #### [facility] [address] [place] [address], [place] Glucose mass conc 224 mg/dL High 70-100 [facility] Comment on above: Performed By: #### 3 1018 #### [facility] [address] [place] [address], [place] Glucose mass conc 156 mg/dL High 70-100 [facility] Comment on above: Performed By: #### 2 5508, 80227, 01162, 41728 #### [facility] [address] [place] [address], [place] Glucose mass conc 216 mg/dL High 70-100 [facility] Comment on above: Performed By: #### 2 5508, 51636, 79861, 83581 #### [facility] [address] [place] [address], [place] *C DIFF DNA AMPLIFICATIONon 05-31-2018 *C DIFF DNA AMPLIFICATION Clinical Report: (D) Specimen: [id number] Collected: 05/31/2018 13:15 Status: Final Last Updated: 05/31/2018 17:23 (1) No: Do not add to previous draw CDT DNA: (Final) Negative Normal [facility] Comment on above: Order Comment: No: D o not add to previous draw Performed By: #### 2 5508, 20326, 06553, 98864 #### [facility] [address] [place] [address], [facility] BASIC METABOLIC PANELon 05-15 Calcium mass conc 9.0 mg/dL Normal 8.6-10.3 [facility] Comment on above: Order Comment: No: D o not add to previous draw Performed By: #### 2 5508, 58843, 37411, 40638 #### [facility] [address] [place] [address], [place] Chloride molar conc 97 mmol/L Low 98-107 [facility] Comment on above: Order Comment: No: D o not add to previous draw Performed By: #### 2 5508, 88727, 64761, 05642 #### [facility] [address] [place] [address], [place] CO2 molar conc 32 mmol/L High 21-31 [facility] Comment on above: Order Comment: No: D o not add to previous draw Performed By: #### 2 5508, 97077, 50954, 62889 #### [facility] [address] [place] [address], [facility] Creatinine mass conc 0.60 mg/dL Normal 0.60-1.20 [facility] Comment on above: Order Comment: No: D o not add to previous draw Performed By: #### 2 5508, 71292, 60499, 13898 #### [facility] [address] [place] [address], [place] GFR/1.73 sq M predicted among blacks MDRD vol rate/area (S/P/Bld) mL/min/{1.73_m2} Normal >60 [facility] Comment on above: Order Comment: No: D o not add to previous draw Performed By: #### 2 5508, 94533, 86325, 08212 #### [facility] [address] [place] [address], [facility] GFR/1.73 sq M predicted among non-blacks MDRD vol rate/area (S/P/Bld) mL/min/{1.73_m2} Normal >60 [facility] Comment on above: Order Comment: No: D o not add to previous draw Performed By: #### 2 5508, 48965, 08590, 08921 #### [facility] [address] [place] [address], [facility] Glucose mass conc 114 mg/dL High 70-100 [facility] Comment on above: Order Comment: No: D o not add to previous draw Performed By: #### 2 5508, 64191, 96397, 20320 #### [facility] [address] [place] [address], [facility] Potassium molar conc 2.9 mmol/L Low 3.5-5.1 [facility] Comment on above: Order Comment: No: D o not add to previous draw Performed By: #### 2 5508, 59972, 81445, 07009 #### [facility] [address] [place] [address], [place] Sodium molar conc 140 mmol/L Normal 136-145 [facility] Comment on above: Order Comment: No: D o not add to previous draw Performed By: #### 2 5508, 65633, 91225, 08199 #### [facility] [address] [place] [address], [place] Urea nitrogen mass conc 12 mg/dL Normal 7-25 [facility] Comment on above: Order Comment: No: D o not add to previous draw Performed By: #### 2 5508, 14804, 92680, 40152 #### [facility] [address] [place] [address], [place] CBC W/DIFFon 05-31-2018 ABS BASOPHILS 0.0 10*3/uL Normal 0.0-0.2 [facility] Comment on above: Order Comment: No: D o not add to previous draw Performed By: #### 2 5508, 63513, 98056, 13254 #### [facility] [address] [place] [address], [facility] ABS NEUTROPHILS 3.2 10*3/uL Normal 1.6-7.6 [facility] Comment on above: Order Comment: No: D o not add to previous draw Performed By: #### 2 5507, 47625, 34490, 16119 #### [facility] [address] [place] [address], [facility] Basophils #/vol (Bld) 0.0 % Normal 0.0-1.0 [facility] Comment on above: Order Comment: No: D o not add to previous draw Performed By: #### 2 550, 09764, 90871, 98692 #### [facility] [address] [place] [place] [address], [facility] Eosinophils #/vol (Bld) 0.0 10*3/uL Normal 0.0-0.5 [facility] Comment on above: Order Comment: No: D o not add to previous draw Performed By: #### 2 5508, 02469, 76617, 67911 #### [facility] [address] [place] [place] [address], [facility] Eosinophils/100 WBC (Bld) 0.0 % Normal 0.0-6.0 [facility] Comment on above: Order Comment: No: D o not add to previous draw Performed By: #### 2 550, 22276, 46077, 77171 #### [facility] [address] [place] [place] [address], [facility] Erythrocyte distribution width Ratio (RBC) 14.2 % Normal 11.5-15.0 [facility] Comment on above: Order Comment: No: D o not add to previous draw Performed By: #### 2 5507, 49248, 64209, 84544 #### [facility] [address] [place] [id number], [facility] GIANT PLATELETS Present Normal [facility] Comment on above: Order Comment: No: D o not add to previous draw Performed By: #### 2 5507, 27128, 00179, 70267 #### [facility] [address] [place] [id number], [facility] Hematocrit Volume Fraction (Bld) 37.7 % Normal 36.0-45.0 [facility] Comment on above: Order Comment: No: D o not add to previous draw Performed By: #### 2 5507, 93134, 27418, 79670 #### [facility] [address] [place] [id number], [facility] Hemoglobin mass conc (Bld) 12.5 g/dL Normal 12.0-15.0 [facility] Comment on above: Order Comment: No: D o not add to previous draw Performed By: #### 2 5507, 15320, 30396, 37954 #### [facility] [address] [place] [address], [facility] Lymphocytes #/vol (Bld) 1.2 10*3/uL Normal 1.2-4.0 [facility] Comment on above: Order Comment: No: D o not add to previous draw Performed By: #### 2 5507, 87228, 98492, 09893 #### [facility] [address] [place] [id number], [facility] Lymphocytes/100 WBC (Bld) 24.3 % Normal 20.0-45.0 [facility] Comment on above: Order Comment: No: D o not add to previous draw Performed By: #### 2 5507, 43653, 00216, 84432 #### [facility] [address] [place] [address], [facility] MCH Entitic mass (RBC) 27.7 pg Normal 27.0-33.0 [facility] Comment on above: Order Comment: No: D o not add to previous draw Performed By: #### 2 8, 15558, 63277, 84414 #### [facility] [address] MCHC mass conc (RBC) 33.2 g/dL Normal 32.0-35.0 [facility] Comment on above: Order Comment: No: D o not add to previous draw Performed By: #### 2 5507, 89812, 73983, 86669 #### [facility] [address] MCV Entitic volume (RBC) 83.6 fL Normal 82.0-98.0 [facility] Comment on above: Order Comment: No: D o not add to previous draw Performed By: #### 2 5507, , 29109, 55418 #### [facility] [address] METAMYELO 0.9 % High 0.0-0.0 [facility] Comment on above: Order Comment: No: D o not add to previous draw Performed By: #### 2 5507, 21358, 66175, 01695 #### [facility] [address] Monocytes #/vol (Bld) 0.4 10*3/uL Normal 0.1-1.0 [facility] Comment on above: Order Comment: No: D o not add to previous draw Performed By: #### 2 5507, 06739, 35837, 56112 #### [facility] [address] MONOS 7.5 % Normal 5.0-12.0 [facility] Comment on above: Order Comment: No: D o not add to previous draw Performed By: #### 2 5507, 23750, 93751, 31426 #### [facility] [address] [place] [address], [facility] MYELOS 1.9 % High .0-.0 [facility] Comment on above: Order Comment: No: D o not add to previous draw Performed By: #### 2 8, 10149, 60011, 53189 #### [facility] [address] [place] [id number], [facility] Neutrophils/100 WBC (Bld) 65.4 % Normal 40.0-72.0 [facility] Comment on above: Order Comment: No: D o not add to previous draw Performed By: #### 2 8, 39874, 01187, 66511 #### [facility] [address] [place] [id number], [facility] NRBC SCAN Present Normal [facility] Comment on above: Order Comment: No: D o not add to previous draw Performed By: #### 2 5507, 80802, 20054, 12195 #### [facility] [address] [place] [id number], [facility] Nucleated RBC/100 WBC Ratio (Bld) 0 % Normal 0-0 [facility] Comment on above: Order Comment: No: D o not add to previous draw Performed By: #### 2 5507, 37145, 36356, 12252 #### [facility] [address] [place] [id number], [facility] PLAT CNT 284 10*3/uL Normal 150-400 [facility] Comment on above: Order Comment: No: D o not add to previous draw Performed By: #### 2 5508, 58978, 68920, 72070 #### [facility] [address] [place] [id number], [facility] RBC #/vol (Bld) 4.51 10*6/uL Normal 3.80-5.00 [facility] Comment on above: Order Comment: No: D o not add to previous draw Performed By: #### 2 550, 61115, 57365, 79611 #### [facility] [address] WBC #/vol (Bld) 4.88 10*3/uL Normal 4.00-10.60 [facility] Comment on above: Order Comment: No: D o not add to previous draw Performed By: #### 2 5508, 72503, 90687, 10514 #### [facility] [address] EEG Reporton 05-31-2018 EEG Report Name: Shabana Stallworth [facility] MR#: [id number] Age: 58 Physician: Colt Boggs M.D. Date: From 6:30 on May 29, 2018, until 6:30 on May 30, 2018 Lab#: [id number] Date of : 1960 Patient Type: I NEURODIAGNOSTIC SERVICES REPORT [address] [place], [place] [address] Board of the [place] [employer] Accredited social media director: Jesse Muir. EEG DURATION: 23:45 and 28 [...] MD Date Trans: 05/31/2018 05:14 Dipak/luis e [id number] cc: Colt Boggs M.D. [address] [place] [id number] Normal [facility] MAGNESIUM BLOODon 05-31-2018 Magnesium mass conc 1.9 mg/dL Normal 1.9-2.7 [facility] Comment on above: Order Comment: No: D o not add to previous draw Performed By: #### 2 5508, 19581, 88525, 85680 #### [facility] [address] [place] [address], [facility] PHOSPHORUS BLOODon 9 Phosphate mass conc 4.0 mg/dL Normal 2.5-5.0 [facility] Comment on above: Order Comment: No: D o not add to previous draw Performed By: #### 2 5508, 80662, 59533, 56276 #### [facility] [address] [place] [address], [facility] POC GLUCOSE LABon 05-31-2018 Glucose mass conc 274 mg/dL High 70-100 [facility] Comment on above: Performed By: #### 2 5507, 50245, 07369, 41850 #### [facility] [address] [place] [address], [place] Glucose mass conc 265 mg/dL High 70-100 [facility] Comment on above: Performed By: #### 2 5507, 54834, 40528, 74340 #### [facility] [address] [place] [address], [place] Glucose mass conc 118 mg/dL High 70-100 [facility] Comment on above: Performed By: #### 2 8, 86073, 72457, 85032 #### [facility] [address] [place] [address], [place] Glucose mass conc 123 mg/dL High 70-100 [facility] Comment on above: Performed By: #### 2 5507, 24115, 25476, 37380 #### [facility] [address] [place] [address], [place] ARTERIAL BLOOD GAS WITH ICAo n 05-30-2018 BASE EXCESS 5 mmol/L High -2-2 [facility] Comment on above: Performed By: #### 2 5507, 93860, 15634, 27271 #### [facility] [address] [place] [address], [place] DELIVERY SYSTEMS MV Normal [facility] Comment on above: Performed By: #### 2 5507, 35166, 17179, 86892 #### [facility] [address] [place] [address], [place] FIO2 40 % Normal 21-100 [facility] Comment on above: Performed By: #### 2 5507, 11652, 54865, 02153 #### [facility] [address] [place] [address], [place] HCO3 molar conc (Bld) 30 mmol/L High 23-27 [facility] Comment on above: Performed By: #### 2 5507, 72748, 55867, 07430 #### [facility] [address] [place] [address], [place] IONIZED CALCIUM 1.21 mmol/L Normal 1.13-1.32 [facility] Comment on above: Performed By: #### 2 5507, 67369, 75725, 38126 #### [facility] [address] [place] [address], [place] MIN VOLUME 7.7 Normal [facility] Comment on above: Performed By: #### 2 5507, 00668, 48119, 17928 #### [facility] [address] [place] [address], [place] MODALITY AC Normal [facility] Comment on above: Performed By: #### 2 5507, 90386, 82997, 44779 #### [facility] [address] [place] [address], [place] Oxygen ppres (Bld) 88 mm[Hg] Normal 75-100 [facility] Comment on above: Performed By: #### 2 5507, 27180, 99241, 21596 #### [facility] [address] [place] [address], [place] Oxygen saturation in Blood 95.4 % Normal 94.0-97.0 [facility] Comment on above: Performed By: #### 2 5507, 16408, 66095, 76344 #### [facility] [address] [place] [address], [place] PCO2 43 mmHg Normal 35-45 [facility] Comment on above: Performed By: #### 2 5507, 31849, 52536, 57773 #### [facility] [address] [place] [address], [place] PEEP 8.0 CMH20 Normal [facility] Comment on above: Performed By: #### 2 5507, 88907, 99084, 88271 #### [facility] [address] [place] [address], [place] PF RATIO 220 mmHg Normal 50-400 [facility] Comment on above: Performed By: #### 2 5508, 72311, 66956, 29773 #### [facility] [address] [place] [address], [place] pH (Bld) 7.45 [pH] Normal 7.35-7.45 [facility] Comment on above: Performed By: #### 2 8, 45058, 22502, 94807 #### [facility] [address] [place] [address], [place] TIDAL VOLUME (VT) CC 400 Normal [facility] Comment on above: Performed By: #### 2 550, 83421, 48820, 07353 #### [facility] [address] [place] [address], [place] BASIC METABOLIC PANELon 05-15 Calcium mass conc 8.5 mg/dL Low 8.6-10.3 [facility] Comment on above: Order Comment: No: D o not add to previous draw Performed By: #### 2 5508, 15751, 77707, 16419 #### [facility] [address] [place] [address], [place] Chloride molar conc 101 mmol/L Normal 98-107 [facility] Comment on above: Order Comment: No: D o not add to previous draw Performed By: #### 2 5508, 32522, 80621, 21446 #### [facility] [address] [place] [address], [place] CO2 molar conc 28 mmol/L Normal 21-31 [facility] Comment on above: Order Comment: No: D o not add to previous draw Performed By: #### 2 5508, 69656, 00556, 06011 #### [facility] [address] [place] [address], [place] Creatinine mass conc 0.59 mg/dL Low 0.60-1.20 [facility] Comment on above: Order Comment: No: D o not add to previous draw Performed By: #### 2 5508, 26194, 46346, 76431 #### [facility] [address] [place] [address], [place] GFR/1.73 sq M predicted among blacks MDRD vol rate/area (S/P/Bld) mL/min/{1.73_m2} Normal >60 [facility] Comment on above: Order Comment: No: D o not add to previous draw Performed By: #### 2 5508, 37983, 59488, 72784 #### [facility] [address] [place] [address], [place] GFR/1.73 sq M predicted among non-blacks MDRD vol rate/area (S/P/Bld) mL/min/{1.73_m2} Normal >60 [facility] Comment on above: Order Comment: No: D o not add to previous draw Performed By: #### 2 5508, 94026, 49754, 70310 #### [facility] [address] [place] [address], [place] Glucose mass conc 239 mg/dL High 70-100 [facility] Comment on above: Order Comment: No: D o not add to previous draw Performed By: #### 2 5508, 08497, 24393, 66728 #### [facility] [address] [place] [address], [place] Potassium molar conc 3.6 mmol/L Normal 3.5-5.1 [facility] Comment on above: Order Comment: No: D o not add to previous draw Performed By: #### 2 5508, 02616, 66164, 65458 #### [facility] [address] [place] [address], [place] Sodium molar conc 136 mmol/L Normal 136-145 [facility] Comment on above: Order Comment: No: D o not add to previous draw Performed By: #### 2 5508, 63682, 40594, 59814 #### [facility] [address] Urea nitrogen mass conc 20 mg/dL Normal 7-25 [facility] Comment on above: Order Comment: No: D o not add to previous draw Performed By: #### 2 8, 90751, 73747, 98973 #### [facility] [address] CBC W/DIFFon 05-30-2018 ABS BASOPHILS 0.0 10*3/uL Normal 0.0-0.2 [facility] Comment on above: Order Comment: No: D o not add to previous draw Performed By: #### 2 8, 54604, 60856, 57030 #### [facility] [address] ABS IMM GRANS 0.2 10*3/uL Normal 0.0-0.2 [facility] Comment on above: Order Comment: No: D o not add to previous draw Performed By: #### 2 8, 32767, 52568, 42540 #### [facility] [address] ABS NEUTROPHILS 2.5 10*3/uL Normal 1.6-7.6 [facility] Comment on above: Order Comment: No: D o not add to previous draw Performed By: #### 2 5508, 49499, 18951, 35540 #### [facility] [address] Basophils #/vol (Bld) 0.5 % Normal 0.0-1.0 [facility] Comment on above: Order Comment: No: D o not add to previous draw Performed By: #### 2 550, 88675, 91837, 50728 #### [facility] [address] [place] [address], [place] Eosinophils #/vol (Bld) 0.0 10*3/uL Normal 0.0-0.5 [facility] Comment on above: Order Comment: No: D o not add to previous draw Performed By: #### 2 5507, 89031, 83234, 38587 #### [facility] [address] Eosinophils/100 WBC (Bld) 0.0 % Normal 0.0-6.0 [facility] Comment on above: Order Comment: No: D o not add to previous draw Performed By: #### 2 5507, 56840, 63076, 71749 #### [facility] [address] Erythrocyte distribution width Ratio (RBC) 13.9 % Normal 11.5-15.0 [facility] Comment on above: Order Comment: No: D o not add to previous draw Performed By: #### 2 5507, 70116, 62118, 28109 #### [facility] [address] Hematocrit Volume Fraction (Bld) 34.3 % Low 36.0-45.0 [facility] Comment on above: Order Comment: No: D o not add to previous draw Performed By: #### 2 5507, 64509, 28824, 15638 #### [facility] [address] Hemoglobin mass conc (Bld) 11.3 g/dL Low 12.0-15.0 [facility] Comment on above: Order Comment: No: D o not add to previous draw Performed By: #### 2 5507, 44329, 89929, 13702 #### [facility] [address] [place] [address], [facility] IMMATURE GRANS 3.6 % High 0.0-1.0 [facility] Comment on above: Order Comment: No: D o not add to previous draw Performed By: #### 2 5507, 98167, 04791, 80396 #### [facility] [address] [place] [address], [facility] Lymphocytes #/vol (Bld) 1.2 10*3/uL Normal 1.2-4.0 [facility] Comment on above: Order Comment: No: D o not add to previous draw Performed By: #### 2 5507, , 39589, 89413 #### [facility] [address] [place] [address], [facility] Lymphocytes/100 WBC (Bld) 29.0 % Normal 20.0-45.0 [facility] Comment on above: Order Comment: No: D o not add to previous draw Performed By: #### 2 5507, , 03602, 49619 #### [facility] [address] [place] [address], [facility] MCH Entitic mass (RBC) 28.0 pg Normal 27.0-33.0 [facility] Comment on above: Order Comment: No: D o not add to previous draw Performed By: #### 2 5507, 72460, 69813, 68690 #### [facility] [address] [place] [address], [facility] MCHC mass conc (RBC) 32.9 g/dL Normal 32.0-35.0 [facility] Comment on above: Order Comment: No: D o not add to previous draw Performed By: #### 2 5507, 48470, 81548, 98765 #### [facility] [address] [place] [address], [facility] MCV Entitic volume (RBC) 85.1 fL Normal 82.0-98.0 [facility] Comment on above: Order Comment: No: D o not add to previous draw Performed By: #### 2 550, 57832, 98493, 22096 #### [facility] [address] [place] [address], [facility] Monocytes #/vol (Bld) 0.3 10*3/uL Normal 0.1-1.0 [facility] Comment on above: Order Comment: No: D o not add to previous draw Performed By: #### 2 5508, 87127, 68593, 26975 #### [facility] [address] [place] [address], [facility] MONOS 6.9 % Normal 5.0-12.0 [facility] Comment on above: Order Comment: No: D o not add to previous draw Performed By: #### 2 8, 30996, 63197, 13136 #### [facility] [address] [place] [address], [facility] Neutrophils/100 WBC (Bld) 60.0 % Normal 40.0-72.0 [facility] Comment on above: Order Comment: No: D o not add to previous draw Performed By: #### 2 5507, 91022, 99226, 00995 #### [facility] [address] [place] [address], [facility] Nucleated RBC/100 WBC Ratio (Bld) 0 % Normal 0-0 [facility] Comment on above: Order Comment: No: D o not add to previous draw Performed By: #### 2 550, 05072, 04299, 37876 #### [facility] [address] [place] [address], [facility] PLAT CNT 250 10*3/uL Normal 150-400 [facility] Comment on above: Order Comment: No: D o not add to previous draw Performed By: #### 2 550, 00742, 47227, 67917 #### [facility] [address] [place] [address], [facility] RBC #/vol (Bld) 4.03 10*6/uL Normal 3.80-5.00 [facility] Comment on above: Order Comment: No: D o not add to previous draw Performed By: #### 2 550, 98846, 89800, 34835 #### [facility] [address] WBC #/vol (Bld) 4.20 10*3/uL Normal 4.00-10.60 [facility] Comment on above: Order Comment: No: D o not add to previous draw Performed By: #### 2 5508, 68446, 15716, 31771 #### [facility] [address] EEG Reporton 05-30-2018 EEG Report Name: Shabana Stallworth [facility] MR#: [id number] Age: 58 Physician: Colt Boggs M.D. Date: From 0630 hours on May 28, 2018, until 0630 hours on May 29, 2018 Lab#: Date of : 1960 Patient Type: I NEURODIAGNOSTIC SERVICES REPORT [address] [place], [place] [address] Board of [employer] [place] [employer] Accredited social media director: Jesse Muir. EEG DURATION: 23:53:41. CLINICAL HISTORY: [...] MD Date Trans: 05/30/2018 05:46 A/luis e [id number] cc: Colt Boggs M.D. [address] [place] [id number] Normal [facility] MAGNESIUM BLOODon 05-30-2018 Magnesium mass conc 1.8 mg/dL Low 1.9-2.7 [facility] Comment on above: Order Comment: No: D o not add to previous draw Performed By: #### 2 5508, 84348, 94063, 43375 #### [facility] [address] [place] [address], [facility] PHOSPHORUS BLOODon 9 Phosphate mass conc 2.0 mg/dL Low 2.5-5.0 [facility] Comment on above: Order Comment: No: D o not add to previous draw Performed By: #### 2 5508, 78240, 86928, 25935 #### [facility] [address] [place] [address], [facility] POC GLUCOSE LABon 05-30-2018 Glucose mass conc 297 mg/dL High 70-100 [facility] Comment on above: Performed By: #### 2 5508, 25995, 07251, 68588 #### [facility] [address] [place] [address], [facility] Glucose mass conc 176 mg/dL High 70-100 [facility] Comment on above: Performed By: #### 2 5508, 09473, 71126, 06177 #### [facility] [address] [place] [address], [place] BASIC METABOLIC PANELon 05-15 Calcium mass conc 8.7 mg/dL Normal 8.6-10.3 [facility] Comment on above: Order Comment: No: D o not add to previous draw Performed By: #### 2 5508, [id number], [id number], [id number] #### [facility] [address] [place] [address], [place] Chloride molar conc 103 mmol/L Normal 98-107 [facility] Comment on above: Order Comment: No: D o not add to previous draw Performed By: #### 2 5508, 37418, 34862, 79233 #### [facility] [address] [place] [address], [place] CO2 molar conc 26 mmol/L Normal 21-31 [facility] Comment on above: Order Comment: No: D o not add to previous draw Performed By: #### 2 5508, 79954, 68851, 72664 #### [facility] [address] [place] [address], [place] Creatinine mass conc 0.56 mg/dL Low 0.60-1.20 [facility] Comment on above: Order Comment: No: D o not add to previous draw Performed By: #### 2 5508, 14268, 44236, 70714 #### [facility] [address] [place] [address], [place] GFR/1.73 sq M predicted among blacks MDRD vol rate/area (S/P/Bld) mL/min/{1.73_m2} Normal >60 The [facility] Comment on above: Order Comment: No: D o not add to previous draw Performed By: #### 2 5508, 10077, 99486, 10159 #### [facility] [address] [place] [address], [facility] GFR/1.73 sq M predicted among non-blacks MDRD vol rate/area (S/P/Bld) mL/min/{1.73_m2} Normal >60 The [facility] Comment on above: Order Comment: No: D o not add to previous draw Performed By: #### 2 5508, 65214, 35683, 68179 #### [facility] [address] [place] [address], [place] Glucose mass conc 263 mg/dL High 70-100 [facility] Comment on above: Order Comment: No: D o not add to previous draw Performed By: #### 2 5508, 41894, 75502, 61700 #### [facility] [address] [place] [address], [place] Potassium molar conc 4.1 mmol/L Normal 3.5-5.1 [facility] Comment on above: Order Comment: No: D o not add to previous draw Performed By: #### 2 5508, 46516, 68905, 86520 #### [facility] [address] [place] [address], [place] Sodium molar conc 135 mmol/L Low 136-145 [facility] Comment on above: Order Comment: No: D o not add to previous draw Performed By: #### 2 5508, 66810, 11599, 70819 #### [facility] [address] [place] [address], [place] Urea nitrogen mass conc 20 mg/dL Normal 7-25 [facility] Comment on above: Order Comment: No: D o not add to previous draw Performed By: #### 2 5508, 67883, 40205, 80175 #### [facility] [address] [place] [address], [place] CBC COMPLETE BLOOD COUNTon 0 - Erythrocyte distribution width Ratio (RBC) 13.7 % Normal 11.5-15.0 [facility] Comment on above: Order Comment: No: D o not add to previous draw Performed By: #### 2 5507, 30536, 41160, 74904 #### [facility] [address] [place] [address], [facility] Hematocrit Volume Fraction (Bld) 34.0 % Low 36.0-45.0 [facility] Comment on above: Order Comment: No: D o not add to previous draw Performed By: #### 2 5507, 80278, 40060, 87285 #### [facility] [address] [place] [address], [facility] Hemoglobin mass conc (Bld) 11.2 g/dL Low 12.0-15.0 [facility] Comment on above: Order Comment: No: D o not add to previous draw Performed By: #### 2 5507, 90104, 83176, 83921 #### [facility] [address] [place] [address], [facility] MCH Entitic mass (RBC) 27.6 pg Normal 27.0-33.0 [facility] Comment on above: Order Comment: No: D o not add to previous draw Performed By: #### 2 5507, 56050, 09314, 61301 #### [facility] [address] [place] [address], [facility] MCHC mass conc (RBC) 32.9 g/dL Normal 32.0-35.0 [facility] Comment on above: Order Comment: No: D o not add to previous draw Performed By: #### 2 5507, 60887, 65467, 61417 #### [facility] [address] [place] [address], [place] MCV Entitic volume (RBC) 83.7 fL Normal 82.0-98.0 [facility] Comment on above: Order Comment: No: D o not add to previous draw Performed By: #### 2 5507, 00630, 95881, 93286 #### [facility] [address] [place] [address], [facility] Nucleated RBC/100 WBC Ratio (Bld) 0 % Normal 0-0 [facility] Comment on above: Order Comment: No: D o not add to previous draw Performed By: #### 2 5508, 20641, 06781, 09272 #### [facility] [address] [place] [address], [facility] PLAT CNT 237 10*3/uL Normal 150-400 [facility] Comment on above: Order Comment: No: D o not add to previous draw Performed By: #### 2 5508, 43545, 26835, 65207 #### [facility] [address] [place] [address], [facility] RBC #/vol (Bld) 4.06 10*6/uL Normal 3.80-5.00 [facility] Comment on above: Order Comment: No: D o not add to previous draw Performed By: #### 2 5508, 55886, 21527, 59504 #### [facility] [address] [place] [address], [facility] WBC #/vol (Bld) 3.83 10*3/uL Low 4.00-10.60 [facility] Comment on above: Order Comment: No: D o not add to previous draw Performed By: #### 2 5508, 83656, 58552, 73716 #### [facility] [address] [place] [address], [facility] EEG Reporton 05-29-2018 EEG Report Name: Shabana Stallworth [facility] MR#: [id number] Age: 58 Physician: Colt Boggs M.D. Date: From 0630 hours on May 27, 2018, until 0630 hours on May 28, 2018. Lab#: Day 5 Date of : 1960 Patient Type: I NEURODIAGNOSTIC SERVICES REPORT [address] [place], [place] [address] Board of the [place] [employer] Accredited social media director: Jesse Muir. EEG DURATION: 23:57 and 28 [...] P/Raghu Matson MD Date Trans: 05/29/2018 08:51 Rossy [id number] cc: Colt Boggs M.D. [address] [place] [id number] Normal [facility] MAGNESIUM BLOODon 05-29-2018 Magnesium mass conc 1.9 mg/dL Normal 1.9-2.7 The [facility] Comment on above: Order Comment: No: D o not add to previous draw Performed By: #### 2 5508, 40935, 03663, 69551 #### [facility] [address] [place] [address], [facility] PHOSPHORUS BLOODon 9 Phosphate mass conc 2.0 mg/dL Low 2.5-5.0 [facility] Comment on above: Order Comment: No: D o not add to previous draw Performed By: #### 2 5508, 92128, 72509, 66881 #### [facility] [address] [place] [address], [facility] BASIC METABOLIC PANELon 05-15 Calcium mass conc 8.5 mg/dL Low 8.6-10.3 [facility] Comment on above: Order Comment: No: D o not add to previous draw Performed By: #### 2 5508, 40446, 46288, 87465 #### [facility] [address] [place] [address], [facility] Chloride molar conc 107 mmol/L Normal 98-107 The [facility] Comment on above: Order Comment: No: D o not add to previous draw Performed By: #### 2 5508, 31516, 23215, 71962 #### [facility] [address] [place] [address], [place] CO2 molar conc 22 mmol/L Normal 21-31 [facility] Comment on above: Order Comment: No: D o not add to previous draw Performed By: #### 2 5508, 31436, 43488, 46013 #### [facility] [address] [place] [address], [place] Creatinine mass conc 0.54 mg/dL Low 0.60-1.20 The [facility] Comment on above: Order Comment: No: D o not add to previous draw Performed By: #### 2 550, 97226, 92376, 80525 #### [facility] [address] [place] [address], [place] GFR/1.73 sq M predicted among blacks MDRD vol rate/area (S/P/Bld) mL/min/{1.73_m2} Normal >60 The [facility] Comment on above: Order Comment: No: D o not add to previous draw Performed By: #### 2 550, 43987, 90651, 24790 #### [facility] [address] [place] [address], [place] GFR/1.73 sq M predicted among non-blacks MDRD vol rate/area (S/P/Bld) mL/min/{1.73_m2} Normal >60 The [facility] Comment on above: Order Comment: No: D o not add to previous draw Performed By: #### 2 5507, 77226, 04318, 74481 #### [facility] [address] [place] [address], [place] Glucose mass conc 161 mg/dL High 70-100 [facility] Comment on above: Order Comment: No: D o not add to previous draw Performed By: #### 2 5507, 07776, 96629, 13285 #### [facility] [address] [place] [address], [place] Potassium molar conc 3.9 mmol/L Normal 3.5-5.1 [facility] Comment on above: Order Comment: No: D o not add to previous draw Performed By: #### 2 550, 02161, 20875, 67609 #### [facility] [address] [place] [address], [place] Sodium molar conc 137 mmol/L Normal 136-145 The [facility] Comment on above: Order Comment: No: D o not add to previous draw Performed By: #### 2 550, 61564, 68420, 71060 #### [facility] [address] [place] [address], [facility] Urea nitrogen mass conc 15 mg/dL Normal 7-25 The [facility] Comment on above: Order Comment: No: D o not add to previous draw Performed By: #### 2 5508, 34650, 00882, 77228 #### [facility] [address] [place] [address], [facility] CBC COMPLETE BLOOD COUNTon 0 - Erythrocyte distribution width Ratio (RBC) 13.9 % Normal 11.5-15.0 The [facility] Comment on above: Order Comment: No: D o not add to previous draw Performed By: #### 2 550, 51357, 90055, 90080 #### [facility] [address] [place] [address], [facility] Hematocrit Volume Fraction (Bld) 32.2 % Low 36.0-45.0 [facility] Comment on above: Order Comment: No: D o not add to previous draw Performed By: #### 2 5508, 71540, 64037, 72360 #### [facility] [address] [place] [address], [facility] Hemoglobin mass conc (Bld) 10.4 g/dL Low 12.0-15.0 [facility] Comment on above: Order Comment: No: D o not add to previous draw Performed By: #### 2 5508, 64217, 20765, 46739 #### [facility] [address] [place] [address], [facility] MCH Entitic mass (RBC) 27.6 pg Normal 27.0-33.0 The [facility] Comment on above: Order Comment: No: D o not add to previous draw Performed By: #### 2 5508, 49212, 22813, 52459 #### [facility] [address] [place] [address], [facility] MCHC mass conc (RBC) 32.3 g/dL Normal 32.0-35.0 [facility] Comment on above: Order Comment: No: D o not add to previous draw Performed By: #### 2 5508, 60761, 28802, 47221 #### [facility] [address] [place] [address], [facility] MCV Entitic volume (RBC) 85.4 fL Normal 82.0-98.0 [facility] Comment on above: Order Comment: No: D o not add to previous draw Performed By: #### 2 5508, 68456, 72301, 23847 #### [facility] [address] [place] [address], [facility] Nucleated RBC/100 WBC Ratio (Bld) 0 % Normal 0-0 [facility] Comment on above: Order Comment: No: D o not add to previous draw Performed By: #### 2 5508, 91158, 81639, 27847 #### [facility] [address] [place] [address], [facility] PLAT CNT 241 10*3/uL Normal 150-400 The [facility] Comment on above: Order Comment: No: D o not add to previous draw Performed By: #### 2 5508, 93866, 45747, 55653 #### [facility] [address] [place] [address], [facility] RBC #/vol (Bld) 3.77 10*6/uL Low 3.80-5.00 The [facility] Comment on above: Order Comment: No: D o not add to previous draw Performed By: #### 2 5508, 68961, 11942, 84647 #### [facility] [address] [place] [address], [facility] WBC #/vol (Bld) 3.77 10*3/uL Low 4.00-10.60 The [facility] Comment on above: Order Comment: No: D o not add to previous draw Performed By: #### 2 5508, 87425, 91558, 63888 #### [facility] [address] [place] [address], [facility] CORTISOLon 05-28-2018 CORTISOL 2.6 mcg/dL Normal The [facility] Comment on above: Order Comment: No: D o not add to previous draw Result Comment: Refe rence Range: AM 6.0-23.0 mcg/dL PM 0.0-9.0 mcg/dL Performed By: #### 2 5508, 43007, 31503, 02479 #### [facility] [address] [place] [address], [facility] MAGNESIUM BLOODon 05-28-2018 Magnesium mass conc 1.8 mg/dL Low 1.9-2.7 The [facility] Comment on above: Order Comment: No: D o not add to previous draw Performed By: #### 2 5508, 34433, 00833, 92512 #### [facility] [address] [place] [address], [facility] PHOSPHORUS BLOODon 9 Phosphate mass conc 3.0 mg/dL Normal 2.5-5.0 The [facility] Comment on above: Order Comment: No: D o not add to previous draw Performed By: #### 2 5508, 34125, 63144, 88823 #### [facility] [address] [place] [address], [facility] THYROGLOBULIN [place] [id number] Thyroglobulin Ab Qn [IU]/mL Normal 0.0-4.0 The [facility] Comment on above: Order Comment: No: D o not add to previous draw Result Comment: INTE RPRETIVE INFORMATION: Thyroglobulin Antibody A value of 4.0 IU/mL or less indicates a negative result for thyroglobulin antibodies. The Thyroglobulin Antibody assay is being performed using the Salvador Killen Access DxI method. Performed by [facility] [place] [address] [email or web address], Jack Torres MD - Lab. Director ARTERIAL BLOOD GAS WITH ICAo n 05-27-2018 BASE EXCESS -5 mmol/L Low -2-2 The [facility] Comment on above: Performed By: #### 2 5508, 25707, 49028, 72383 #### [facility] [address] [place] [address], [facility] [employer] MV Normal The [facility] Comment on above: Performed By: #### 2 5507, 17135, 71248, 25363 #### [facility] [address] [place] [address], [facility] FIO2 40 % Normal 21-100 The [facility] Comment on above: Performed By: #### 2 5507, 43678, 93318, 64386 #### [facility] [address] [place] [address], [facility] HCO3 molar conc (Bld) 21 mmol/L Low 23-27 The [facility] Comment on above: Performed By: #### 2 5507, , 63511, 95721 #### [facility] [address] [place] [address], [facility] IONIZED CALCIUM 1.25 mmol/L Normal 1.13-1.32 The [facility] Comment on above: Performed By: #### 2 5507, 96329, 23085, 47177 #### [facility] [address] [place] [address], [facility] MIN VOLUME 6.1 Normal The [facility] Comment on above: Performed By: #### 2 5507, 45694, 18241, 08088 #### [facility] [address] [place] [address], [facility] MODALITY AC Normal The [facility] Comment on above: Performed By: #### 2 5507, 43218, 86204, 84004 #### [facility] [address] [place] [address], [facility] Oxygen ppres (Bld) 135 mm[Hg] Critically high 75-100 T he [facility] Comment on above: Performed By: #### 2 5507, 53392, 15763, 03202 #### [facility] [address] [place] [address], [facility] Oxygen saturation in Blood 95.5 % Normal 94.0-97.0 The [facility] Comment on above: Performed By: #### 2 550, 34227, 40197, 51514 #### [facility] [address] [place] [address], [facility] PCO2 43 mmHg Normal 35-45 The [facility] Comment on above: Performed By: #### 2 550, 40247, 99075, 27068 #### [facility] [address] [place] [address], [facility] PEEP 8.0 CMH20 Normal The [facility] Comment on above: Performed By: #### 2 550, 32307, 02979, 64531 #### [facility] [address] [place] [address], [facility] pH (Bld) 7.30 [pH] Low 7.35-7.45 The [facility] Comment on above: Performed By: #### 2 5508, 55927, 10785, 55721 #### [facility] [address] [place] [address], [facility] TIDAL VOLUME (VT) CC 400 Normal The [facility] Comment on above: Performed By: #### 2 5508, 50638, 13043, 41968 #### [facility] [address] [place] [address], [facility] BASIC METABOLIC PANELon 05-15 Calcium mass conc 8.1 mg/dL Low 8.6-10.3 The [facility] Comment on above: Order Comment: No: D o not add to previous draw Performed By: #### 2 5508, 59006, 79078, 29446 #### [facility] [address] [place] [address], [facility] Chloride molar conc 109 mmol/L High 98-107 The [facility] Comment on above: Order Comment: No: D o not add to previous draw Performed By: #### 2 5508, 53361, 57773, 19089 #### [facility] [address] [place] [address], [place] CO2 molar conc 23 mmol/L Normal 21-31 The [facility] Comment on above: Order Comment: No: D o not add to previous draw Performed By: #### 2 5508, 61827, 68950, 73409 #### [facility] [address] [place] [address], [place] Creatinine mass conc 0.63 mg/dL Normal 0.60-1.20 The [facility] Comment on above: Order Comment: No: D o not add to previous draw Performed By: #### 2 550, 11981, 92660, 77570 #### [facility] [address] [place] [address], [place] GFR/1.73 sq M predicted among blacks MDRD vol rate/area (S/P/Bld) mL/min/{1.73_m2} Normal >60 The [facility] Comment on above: Order Comment: No: D o not add to previous draw Performed By: #### 2 5508, 24153, 63668, 02148 #### [facility] [address] [place] [address], [place] GFR/1.73 sq M predicted among non-blacks MDRD vol rate/area (S/P/Bld) mL/min/{1.73_m2} Normal >60 The [facility] Comment on above: Order Comment: No: D o not add to previous draw Performed By: #### 2 5508, 76131, 77878, 30412 #### [facility] [address] [place] [address], [place] Glucose mass conc 87 mg/dL Normal 70-100 The [facility] Comment on above: Order Comment: No: D o not add to previous draw Performed By: #### 2 5508, 65474, 76055, 44497 #### [facility] [address] [place] [address], [place] Potassium molar conc 3.7 mmol/L Normal 3.5-5.1 The [facility] Comment on above: Order Comment: No: D o not add to previous draw Performed By: #### 2 5508, 97877, 22930, 19577 #### [facility] [address] [place] [address], [facility] Sodium molar conc 140 mmol/L Normal 136-145 The [facility] Comment on above: Order Comment: No: D o not add to previous draw Performed By: #### 2 5508, 91916, 52504, 61051 #### [facility] [address] [place] [address], [facility] Urea nitrogen mass conc 8 mg/dL Normal 7-25 The [facility] Comment on above: Order Comment: No: D o not add to previous draw Performed By: #### 2 5507, 15755, 26648, 93151 #### [facility] [address] CBC COMPLETE BLOOD COUNTon 0 - Erythrocyte distribution width Ratio (RBC) 14.1 % Normal 11.5-15.0 The [facility] Comment on above: Order Comment: No: D o not add to previous draw Performed By: #### 2 5507, 85918, 28493, 39447 #### [facility] [address] [place] [address], [facility] Hematocrit Volume Fraction (Bld) 32.7 % Low 36.0-45.0 The [facility] Comment on above: Order Comment: No: D o not add to previous draw Performed By: #### 2 8, 70611, 65444, 84795 #### [facility] [address] [place] [address], [facility] Hemoglobin mass conc (Bld) 10.6 g/dL Low 12.0-15.0 The [facility] Comment on above: Order Comment: No: D o not add to previous draw Performed By: #### 2 5507, 63043, 07499, 26462 #### [facility] [address] MCH Entitic mass (RBC) 28.0 pg Normal 27.0-33.0 The [facility] Comment on above: Order Comment: No: D o not add to previous draw Performed By: #### 2 5508, 82353, 24697, 78681 #### [facility] [address] MCHC mass conc (RBC) 32.4 g/dL Normal 32.0-35.0 The [facility] Comment on above: Order Comment: No: D o not add to previous draw Performed By: #### 2 550, 05552, 82321, 37308 #### [facility] [address] MCV Entitic volume (RBC) 86.5 fL Normal 82.0-98.0 The [facility] Comment on above: Order Comment: No: D o not add to previous draw Performed By: #### 2 5508, 82585, 11355, 22528 #### [facility] [address] Nucleated RBC/100 WBC Ratio (Bld) 0 % Normal 0-0 The [facility] Comment on above: Order Comment: No: D o not add to previous draw Performed By: #### 2 5508, 36150, 31720, 26264 #### [facility] [address] [place] [address], [facility] PLAT CNT 207 10*3/uL Normal 150-400 The [facility] Comment on above: Order Comment: No: D o not add to previous draw Performed By: #### 2 550, 17119, 64922, 56132 #### [facility] [address] [place] [address], [facility] RBC #/vol (Bld) 3.78 10*6/uL Low 3.80-5.00 The [facility] Comment on above: Order Comment: No: D o not add to previous draw Performed By: #### 2 5508, 92338, 45670, 06441 #### [facility] [address] [place] [address], [facility] WBC #/vol (Bld) 3.84 10*3/uL Low 4.00-10.60 The [facility] Comment on above: Order Comment: No: D o not add to previous draw Performed By: #### 2 5508, 49958, 17441, 66716 #### [facility] [address] [place], [place] [address] [place] [address] EEG Reporton 05-27-2018 EEG Report Name: Shabana Stallworth [facility] MR#: [id number] Age: 58 Physician: Colt Boggs M.D. Date: From 6:30 on May 26, 2018, until 6:30 hours on May 27, 2018 Lab#: Date of : 1960 Patient Type: I NEURODIAGNOSTIC SERVICES REPORT [address] [place], [place] [address] Board of the [place] [employer] Accredited social media director: Jesse Muir. EEG DURATION: 23:57 and 13 [...] A/Raghu Matson MD Date Trans: 05/27/2018 08:32 P/mmo [id number] cc: Colt Boggs M.D. [address] [place] [phone] Normal [facility] EEG Report Name: Shabana Stallworth [facility] MR#: [id number] Age: 58 Physician: Colt Boggs M.D. Date: From 0630 hours on May 25, 2018, until 0630 hours on May 26, 2018 Lab#: 3 Date of : 1960 Patient Type: I NEURODIAGNOSTIC SERVICES REPORT [address] [place], [place] [address] Board of the [place] [employer] Accredited social media director: Jesse Muir. EEG DURATION: 23:57:32. CLINICAL HISTORY: [...] MD Date Trans: 05/27/2018 07:09 Dipak/luis e DN_JN:[id number] cc: Colt Boggs M.D. [address] [place] [phone] Normal [facility] MAGNESIUM BLOODon 05-27-2018 Magnesium mass conc 1.7 mg/dL Low 1.9-2.7 [facility] Comment on above: Order Comment: No: D o not add to previous draw Performed By: #### 2 5508, 82025, 96673, 10200 #### [facility] [address] [place] [address], [facility] PHOSPHORUS BLOODon 9 Phosphate mass conc 3.0 mg/dL Normal 2.5-5.0 [facility] Comment on above: Order Comment: No: D o not add to previous draw Performed By: #### 2 5508, 50152, [address], 59124 #### [facility] [address] ARTERIAL BLOOD GAS WITH ICAo n 05-26-2018 BASE EXCESS -3 mmol/L Low -2-2 [facility] Comment on above: Performed By: #### 8 5123 #### [facility] [address] DELIVERY SYSTEMS MV Normal [facility] Comment on above: Performed By: #### 8 5123 #### [facility] [address] [facility] [place] [address], [facility] FIO2 40 % Normal 21-100 [facility] Comment on above: Performed By: #### 8 5123 #### [facility] [address] HCO3 molar conc (Bld) 22 mmol/L Low 23-27 [facility] Comment on above: Performed By: #### 8 5123 #### [facility] [address] [place] [address], [facility] IONIZED CALCIUM 1.19 mmol/L Normal 1.13-1.32 [facility] Comment on above: Performed By: #### 8 5123 #### [facility] [address] [place] [address], [facility] MIN VOLUME 6.1 Normal [facility] Comment on above: Performed By: #### 8 5123 #### [facility] [address] [place] [address], [facility] MODALITY AC Normal [facility] Comment on above: Performed By: #### 8 5123 #### [facility] [address] [place] [address], [facility] Oxygen ppres (Bld) 162 mm[Hg] Critically high 75-100 T he [facility] Comment on above: Performed By: #### 8 5123 #### [facility] [address] Oxygen saturation in Blood 96.4 % Normal 94.0-97.0 [facility] Comment on above: Performed By: #### 8 5123 #### [facility] [address] [place] [address], [facility] PCO2 40 mmHg Normal 35-45 [facility] Comment on above: Performed By: #### 8 5123 #### [facility] [address] [place] [address], [facility] PEEP 8.0 CMH20 Normal [facility] Comment on above: Performed By: #### 8 5123 #### [facility] [address] pH (Bld) 7.35 [pH] Normal 7.35-7.45 [facility] Comment on above: Performed By: #### 8 5123 #### [facility] [address] TIDAL VOLUME (VT) CC 400 Normal [facility] Comment on above: Performed By: #### 8 5123 #### [facility] [address] BASIC METABOLIC PANELon - Calcium mass conc 7.8 mg/dL Low 8.6-10.3 [facility] Comment on above: Order Comment: No: D o not add to previous draw Performed By: #### 8 5123 #### [facility] [address] [place] [address], [facility] Chloride molar conc 110 mmol/L High 98-107 [facility] Comment on above: Order Comment: No: D o not add to previous draw Performed By: #### 8 5123 #### [facility] [address] [place] [address], [facility] CO2 molar conc 22 mmol/L Normal 21-31 [facility] Comment on above: Order Comment: No: D o not add to previous draw Performed By: #### 8 5123 #### [facility] [address] [place] [address], [place] Creatinine mass conc 0.60 mg/dL Normal 0.60-1.20 [facility] Comment on above: Order Comment: No: D o not add to previous draw Performed By: #### 8 5123 #### [facility] [address] [place] [address], [place] GFR/1.73 sq M predicted among blacks MDRD vol rate/area (S/P/Bld) mL/min/{1.73_m2} Normal >60 [facility] Comment on above: Order Comment: No: D o not add to previous draw Performed By: #### 8 5123 #### [facility] [address] [place] [address], [place] GFR/1.73 sq M predicted among non-blacks MDRD vol rate/area (S/P/Bld) mL/min/{1.73_m2} Normal >60 [facility] Comment on above: Order Comment: No: D o not add to previous draw Performed By: #### 8 5123 #### [facility] [address] [place] [address], [place] Glucose mass conc 85 mg/dL Normal 70-100 [facility] Comment on above: Order Comment: No: D o not add to previous draw Performed By: #### 8 5123 #### [facility] [address] [place] [address], [place] Potassium molar conc 3.8 mmol/L Normal 3.5-5.1 [facility] Comment on above: Order Comment: No: D o not add to previous draw Performed By: #### 8 5123 #### [facility] [address] Sodium molar conc 141 mmol/L Normal 136-145 [facility] Comment on above: Order Comment: No: D o not add to previous draw Performed By: #### 8 5123 #### [facility] [address] Urea nitrogen mass conc 7 mg/dL Normal 7-25 [facility] Comment on above: Order Comment: No: D o not add to previous draw Performed By: #### 8 5123 #### [facility] [address] [place] [address], [facility] CBC W/DIFFon 05-26-2018 ABS BASOPHILS 0.0 10*3/uL Normal 0.0-0.2 [facility] Comment on above: Order Comment: No: D o not add to previous draw Performed By: #### 8 5123 #### [facility] [address] ABS IMM GRANS 0.0 10*3/uL Normal 0.0-0.2 [facility] Comment on above: Order Comment: No: D o not add to previous draw Performed By: #### 8 5123 #### [facility] [address] ABS NEUTROPHILS 1.9 10*3/uL Normal 1.6-7.6 [facility] Comment on above: Order Comment: No: D o not add to previous draw Performed By: #### 8 [id number] #### [facility] [address] Basophils #/vol (Bld) 1.2 % High 0.0-1.0 [facility] Comment on above: Order Comment: No: D o not add to previous draw Performed By: #### 8 5123 #### [facility] [address] Eosinophils #/vol (Bld) 0.1 10*3/uL Normal 0.0-0.5 [facility] Comment on above: Order Comment: No: D o not add to previous draw Performed By: #### 8 [id number] #### [facility] [address] [place] [address], [facility] Eosinophils/100 WBC (Bld) 4.0 % Normal 0.0-6.0 [facility] Comment on above: Order Comment: No: D o not add to previous draw Performed By: #### 8 [id number] #### [facility] [address] Erythrocyte distribution width Ratio (RBC) 14.6 % Normal 11.5-15.0 [facility] Comment on above: Order Comment: No: D o not add to previous draw Performed By: #### 8 5123 #### [facility] [address] Hematocrit Volume Fraction (Bld) 35.2 % Low 36.0-45.0 [facility] Comment on above: Order Comment: No: D o not add to previous draw Performed By: #### 8 5123 #### [facility] [address] [place] [address], [facility] Hemoglobin mass conc (Bld) 10.9 g/dL Low 12.0-15.0 [facility] Comment on above: Order Comment: No: D o not add to previous draw Performed By: #### 8 [id number] #### [facility] [address] [place] [address], [facility] IMMATURE GRANS 0.6 % Normal 0.0-1.0 [facility] Comment on above: Order Comment: No: D o not add to previous draw Performed By: #### 8 5123 #### [facility] [address] [place] [id number], [facility] Lymphocytes #/vol (Bld) 1.0 10*3/uL Low 1.2-4.0 [facility] Comment on above: Order Comment: No: D o not add to previous draw Performed By: #### 8 [id number] #### [facility] [address] [facility] [place] [address], [facility] Lymphocytes/100 WBC (Bld) 29.3 % Normal 20.0-45.0 [facility] Comment on above: Order Comment: No: D o not add to previous draw Performed By: #### 8 [id number] #### [facility] [address] [place] [address], [facility] MCH Entitic mass (RBC) 27.8 pg Normal 27.0-33.0 [facility] Comment on above: Order Comment: No: D o not add to previous draw Performed By: #### 8 5123 #### [facility] [address] [facility] [address] MCHC mass conc (RBC) 31.0 g/dL Low 32.0-35.0 [facility] Comment on above: Order Comment: No: D o not add to previous draw Performed By: #### 8 5123 #### [facility] [address] [facility] [address] MCV Entitic volume (RBC) 89.8 fL Normal 82.0-98.0 [facility] Comment on above: Order Comment: No: D o not add to previous draw Performed By: #### 8 [id number] #### [facility] [address] [facility] [place] [address], [facility] Monocytes #/vol (Bld) 0.2 10*3/uL Normal 0.1-1.0 [facility] Comment on above: Order Comment: No: D o not add to previous draw Performed By: #### 8 5123 #### [facility] [address] [place] [address], [facility] MONOS 7.0 % Normal 5.0-12.0 [facility] Comment on above: Order Comment: No: D o not add to previous draw Performed By: #### 8 5123 #### [facility] [address] [place] [address], [facility] Neutrophils/100 WBC (Bld) 57.9 % Normal 40.0-72.0 [facility] Comment on above: Order Comment: No: D o not add to previous draw Performed By: #### 8 [id number] #### [facility] [address] [place] [id number], [facility] Nucleated RBC/100 WBC Ratio (Bld) 0 % Normal 0-0 [facility] Comment on above: Order Comment: No: D o not add to previous draw Performed By: #### 8 5123 #### [facility] [address] [place] [id number], [place] PLAT CNT 175 10*3/uL Normal 150-400 [facility] Comment on above: Order Comment: No: D o not add to previous draw Performed By: #### 8 5123 #### [facility] [address] [place] [address], [facility] RBC #/vol (Bld) 3.92 10*6/uL Normal 3.80-5.00 [facility] Comment on above: Order Comment: No: D o not add to previous draw Performed By: #### 8 5123 #### [facility] [address] [place] [id number], [facility] WBC #/vol (Bld) 3.28 10*3/uL Low 4.00-10.60 [facility] Comment on above: Order Comment: No: D o not add to previous draw Performed By: #### 8 5123 #### [facility] [address] [place] [address], [facility] EEG Reporton 05-26-2018 EEG Report Name: Shabana Stallworth [facility] MR#: [id number] Age: 58 Physician: Colt Boggs M.D. Date: 05/24/2018, Day #2. Lab#: Date of : 1960 Patient Type: I NEURODIAGNOSTIC SERVICES REPORT [address] [place] [place], [place] [address] Board of the [place] [employer] Accredited Laboratory STUDY: Clinical Neurophysiology [...] May 25, 2018, and is suggestive of [id number] diffuse encephalopathy. No clear epileptiform discharges or EEG seizures were seen during this recording. There was no push button event. Electronically Signed by: Raghu Matson MD 06/02/2018 09:51 P Raghu Matson MD Date Dict: 05/25/2018/09:23 Dipak/Raghu Matson MD Date Trans: 05/26/2018 07:34 Dipak/luis e [id number] cc: Colt Boggs M.D. [address] [place] [address] [facility] [phone] Normal [facility] MAGNESIUM BLOODon 05-26-2018 Magnesium mass conc 1.9 mg/dL Normal 1.9-2.7 [facility] Comment on above: Order Comment: No: D o not add to previous draw Performed By: #### 8 [id number] #### [facility] [address] PHOSPHORUS BLOODon 9 Phosphate mass conc 2.7 mg/dL Normal 2.5-5.0 [facility] Comment on above: Order Comment: No: D o not add to previous draw Performed By: #### 8 [id number] #### [facility] [address] *CSF CULTUREon 05-25-2018 *CSF CULTURE Clinical Report: (D) Specimen/Source: CSF/Tube 3 Collected: 05/25/2018 15:00 Status: Final Last Updated: 05/30/2018 06:30 (1) Lumbar Puncture. GRAM (Final) No Polys Seen No Bacteria Seen CYTOSPUN (Final) This Gram Stain was done on a cytocentrifuged specimen CULT RES (Final) No Growth Day 5 Normal [facility] Comment on above: Order Comment: No: D o not add to previous draw Performed By: #### 1 0054 #### [facility] [address] [place] [address], [facility] ALBUMIN FLUID MISCon 019 Albumin mass conc g/dL Normal [facility] Comment on above: Order Comment: No: D o not add to previous draw Result Comment: The reference range and other method performance specifications have not been established for this test in fluids. the test result should be integrated into the clinical context for interpretation. Performed By: #### 1 0054 #### [facility] [address] [place] [address], [facility] ARTERIAL BLOOD GAS WITH ICAo n 05-25-2018 BASE EXCESS -2 mmol/L Normal -2-2 [facility] Comment on above: Performed By: #### 5 3 #### [facility] [address] [place] [address], [facility] DELIVERY SYSTEMS MV Normal [facility] Comment on above: Performed By: #### 5 0103 #### [facility] [address] [place] [address], [facility] FIO2 40 % Normal 21-100 [facility] Comment on above: Performed By: #### 5 3 #### [facility] [address] [place] [address], [facility] HCO3 molar conc (Bld) 24 mmol/L Normal 23-27 [facility] Comment on above: Performed By: #### 5 3 #### [facility] [address] [place] [address], [facility] IONIZED CALCIUM 1.16 mmol/L Normal 1.13-1.32 [facility] Comment on above: Performed By: #### 5 3 #### [facility] [address] [place] [address], [facility] MIN VOLUME 5.8 Normal [facility] Comment on above: Performed By: #### 5 3 #### [facility] [address] [place] [address], [facility] MODALITY AC Normal [facility] Comment on above: Performed By: #### 5 3 #### [facility] [address] [place] [address], [facility] Oxygen ppres (Bld) 131 mm[Hg] Critically high 75-100 T he [facility] Comment on above: Performed By: #### 5 3 #### [facility] [address] [place] [address], [place] Oxygen saturation in Blood 96.3 % Normal 94.0-97.0 [facility] Comment on above: Performed By: #### 5 0103 #### [facility] [address] [place] [address], [place] PCO2 44 mmHg Normal 35-45 [facility] Comment on above: Performed By: #### 5 0103 #### [facility] [address] [place] [address], [place] PEEP 8.0 CMH20 Normal [facility] Comment on above: Performed By: #### 5 0103 #### [facility] [address] [place] [address], [place] pH (Bld) 7.34 [pH] Low 7.35-7.45 [facility] Comment on above: Performed By: #### 5 0103 #### [facility] [address] [place] [address], [place] TIDAL VOLUME (VT) CC 400 Normal [facility] Comment on above: Performed By: #### 5 0103 #### [facility] [address] [place] [address], [place] BASIC METABOLIC PANELon 05-15 Calcium mass conc 7.8 mg/dL Low 8.6-10.3 [facility] Comment on above: Order Comment: No: D o not add to previous draw Performed By: #### 5 0103 #### [facility] [address] [place] [address], [place] Chloride molar conc 111 mmol/L High 98-107 [facility] Comment on above: Order Comment: No: D o not add to previous draw Performed By: #### 5 0103 #### [facility] [address] [place] [address], [place] CO2 molar conc 22 mmol/L Normal 21-31 [facility] Comment on above: Order Comment: No: D o not add to previous draw Performed By: #### 5 0103 #### [facility] [address] [place] [address], [facility] Creatinine mass conc 0.75 mg/dL Normal 0.60-1.20 [facility] Comment on above: Order Comment: No: D o not add to previous draw Performed By: #### 5 0103 #### [facility] [address] [place] [address], [facility] GFR/1.73 sq M predicted among blacks MDRD vol rate/area (S/P/Bld) mL/min/{1.73_m2} Normal >60 [facility] Comment on above: Order Comment: No: D o not add to previous draw Performed By: #### 5 0103 #### [facility] [address] [place] [address], [facility] GFR/1.73 sq M predicted among non-blacks MDRD vol rate/area (S/P/Bld) mL/min/{1.73_m2} Normal >60 [facility] Comment on above: Order Comment: No: D o not add to previous draw Performed By: #### 5 0103 #### [facility] [address] [place] [address], [facility] Glucose mass conc 111 mg/dL High 70-100 [facility] Comment on above: Order Comment: No: D o not add to previous draw Performed By: #### 5 0103 #### [facility] [address] [place] [address], [facility] Potassium molar conc 3.3 mmol/L Low 3.5-5.1 [facility] Comment on above: Order Comment: No: D o not add to previous draw Performed By: #### 5 0103 #### [facility] [address] [place] [address], [place] Sodium molar conc 139 mmol/L Normal 136-145 [facility] Comment on above: Order Comment: No: D o not add to previous draw Performed By: #### 5 0103 #### [facility] [address] Urea nitrogen mass conc 10 mg/dL Normal 7-25 [facility] Comment on above: Order Comment: No: D o not add to previous draw Performed By: #### 5 0103 #### [facility] [address] CBC W/DIFFon 05-25-2018 ABS BASOPHILS 0.0 10*3/uL Normal 0.0-0.2 [facility] Comment on above: Order Comment: No: D o not add to previous draw Performed By: #### 5 0103 #### [facility] [address] ABS IMM GRANS 0.0 10*3/uL Normal 0.0-0.2 [facility] Comment on above: Order Comment: No: D o not add to previous draw Performed By: #### 5 0103 #### [facility] [address] ABS NEUTROPHILS 2.9 10*3/uL Normal 1.6-7.6 [facility] Comment on above: Order Comment: No: D o not add to previous draw Performed By: #### 5 0103 #### [facility] [address] Basophils #/vol (Bld) 0.7 % Normal 0.0-1.0 [facility] Comment on above: Order Comment: No: D o not add to previous draw Performed By: #### 5 0103 #### [facility] [address] Eosinophils #/vol (Bld) 0.1 10*3/uL Normal 0.0-0.5 [facility] Comment on above: Order Comment: No: D o not add to previous draw Performed By: #### 5 0103 #### [facility] [address] [place] [address], [facility] Eosinophils/100 WBC (Bld) 2.9 % Normal 0.0-6.0 [facility] Comment on above: Order Comment: No: D o not add to previous draw Performed By: #### 5 0103 #### [facility] [address] [facility] [address] Erythrocyte distribution width Ratio (RBC) 14.2 % Normal 11.5-15.0 [facility] Comment on above: Order Comment: No: D o not add to previous draw Performed By: #### 5 3 #### [facility] [address] Hematocrit Volume Fraction (Bld) 33.4 % Low 36.0-45.0 [facility] Comment on above: Order Comment: No: D o not add to previous draw Performed By: #### 5 0103 #### [facility] [address] Hemoglobin mass conc (Bld) 10.8 g/dL Low 12.0-15.0 [facility] Comment on above: Order Comment: No: D o not add to previous draw Performed By: #### 5 3 #### [facility] [address] IMMATURE GRANS 0.2 % Normal 0.0-1.0 [facility] Comment on above: Order Comment: No: D o not add to previous draw Performed By: #### 5 0103 #### [facility] [address] Lymphocytes #/vol (Bld) 1.1 10*3/uL Low 1.2-4.0 [facility] Comment on above: Order Comment: No: D o not add to previous draw Performed By: #### 5 3 #### [facility] [address] Lymphocytes/100 WBC (Bld) 24.4 % Normal 20.0-45.0 [facility] Comment on above: Order Comment: No: D o not add to previous draw Performed By: #### 5 0103 #### [facility] [address] [facility] [address] [facility] Entitic mass (RBC) 27.9 pg Normal 27.0-33.0 [facility] Comment on above: Order Comment: No: D o not add to previous draw Performed By: #### 5 3 #### [facility] [address] [facility] [address] MCHC mass conc (RBC) 32.3 g/dL Normal 32.0-35.0 The [facility] Comment on above: Order Comment: No: D o not add to previous draw Performed By: #### 5 3 #### [facility] [address] MCV Entitic volume (RBC) 86.3 fL Normal 82.0-98.0 The [facility] Comment on above: Order Comment: No: D o not add to previous draw Performed By: #### 5 3 #### [facility] [address] Monocytes #/vol (Bld) 0.3 10*3/uL Normal 0.1-1.0 The [facility] Comment on above: Order Comment: No: D o not add to previous draw Performed By: #### 5 0103 #### [facility] [address] MONOS 7.0 % Normal 5.0-12.0 The [facility] Comment on above: Order Comment: No: D o not add to previous draw Performed By: #### 5 3 #### [facility] [address] [place] [address], [facility] Neutrophils/100 WBC (Bld) 64.8 % Normal 40.0-72.0 The [facility] Comment on above: Order Comment: No: D o not add to previous draw Performed By: #### 5 0103 #### [facility] [address] [place] [id number], [facility] Nucleated RBC/100 WBC Ratio (Bld) 0 % Normal 0-0 The [facility] Comment on above: Order Comment: No: D o not add to previous draw Performed By: #### 5 0103 #### [facility] [address] [place] [address], [facility] PLAT CNT 172 10*3/uL Normal 150-400 [facility] Comment on above: Order Comment: No: D o not add to previous draw Performed By: #### 5 0103 #### [facility] [address] [place] [address], [facility] RBC #/vol (Bld) 3.87 10*6/uL Normal 3.80-5.00 [facility] Comment on above: Order Comment: No: D o not add to previous draw Performed By: #### 5 0103 #### [facility] [address] [place] [address], [facility] WBC #/vol (Bld) 4.43 10*3/uL Normal 4.00-10.60 The [facility] Comment on above: Order Comment: No: D o not add to previous draw Performed By: #### 5 0103 #### [facility] [address] [place] [id number], [facility] CSF CELL COUNTon 05-25-2018 FLUID APPEAR ALL 4 TUBES: CLEAR A ND COLORLESS Normal The [facility] Comment on above: Order Comment: No: D o not add to previous draw Performed By: #### 1 0054 #### [facility] [address] [place] [id number] FLUID VOLUME 16.5 ml Normal The [facility] Comment on above: Order Comment: No: D o not add to previous draw Performed By: #### 1 0054 #### [facility] [address] [place] [address], [facility] Lymphocytes/100 WBC (Bld) 48 % High 0-0 [facility] Comment on above: Order Comment: No: D o not add to previous draw Performed By: #### 1 0054 #### [facility] [address] [place] [address], [facility] MACROPHAGE 11 % Normal [facility] Comment on above: Order Comment: No: D o not add to previous draw Performed By: #### 1 0054 #### [facility] [address] [place] [address], [facility] OTHER F1 TOTAL 68 WBC SEEN ON DIFF DONE ON CYTOSPIN PREP Normal The [facility] Comment on above: Order Comment: No: D o not add to previous draw Result Comment: Resu lt changed by [facility] on 05/26/2018 09:25. The previous value was TOTAL 68 WBC SEEN ON DIFF DONE ON CYTOSPIN PREP. Performed By: #### 1 0054 #### [facility] [address] [place] [address], [facility] OTHER F3 Checked by Patrick walters M.D. Normal The [facility] Comment on above: Order Comment: No: D o not add to previous draw Result Comment: Resu lt changed by [facility] on 05/26/2018 09:25. The previous value was Preliminary report; verified report to follow. Performed By: #### 1 0054 #### [facility] [address] [place] [address], [facility] RBC #/vol (Bld) 2 mm3 High 0-0 The [facility] Comment on above: Order Comment: No: D o not add to previous draw Performed By: #### 1 0054 #### [facility] [address] RBC % CRENATION 0 % Normal 0-0 The [facility] Comment on above: Order Comment: No: D o not add to previous draw Performed By: #### 1 0054 #### [facility] [address] [place] [address], [facility] SEGS 9 % High 0-0 [facility] Comment on above: Order Comment: No: D o not add to previous draw Performed By: #### 1 0054 #### [facility] [address] [place] [address], [facility] SITE LUMBAR, TUBE 4 Normal [facility] Comment on above: Order Comment: No: D o not add to previous draw Performed By: #### 1 0054 #### [facility] [address] WBC #/vol (Bld) 2 mm3 High 0-0 [facility] Comment on above: Order Comment: No: D o not add to previous draw Performed By: #### 1 0054 #### [facility] [address] XANTHOCHROMIA NONE SEEN Normal [facility] Comment on above: Order Comment: No: D o not add to previous draw Performed By: #### 1 0054 #### [facility] [address] DILANTINon 05-25-2018 DILANTIN (PHENYTOIN) 7.7 mcg/mL Low 10.0-20.0 The [facility] Comment on above: Order Comment: No: D o not add to previous draw Performed By: #### 5 0103 #### [facility] [address] EEG Reporton 05-25-2018 EEG Report Name: Shabana Stallworth [facility] MR#: [id number] Age: 58 Physician: Colt Boggs M.D. Date: 05/23/2018-05/24/2018 Lab#: [id number], day 1 Date of : 1960 Patient Type: I NEURODIAGNOSTIC SERVICES REPORT [address] [place], [place] [address] Board of the [place] [employer] Accredited Laboratory HISTORY: This video/EEG [...] Maribel Marinelli M.D. Ph.D Date Dict: 05/24/2018/09:31 Neville Marinelli M.D. Ph.D Date Trans: 05/24/2018 10:34 P/luis e [id number] cc: Colt Boggs M.D. [address] [place] [address] B [facility] [id number] Normal [facility] ENCEPHALOPATHY, AUTOIMMUNE C SFon 05-25-2018 ENCEPHALOPATHY AUTOIMMUNE EVAL, CSF Results faxed to ordering physician and sent to HIM Normal The [facility] Comment on above: Performed By: #### 3 1018 #### [facility] [address] [place] [address], [facility] ENCEPHALOPATHY, AUTOIMMUNE S ERUMon 05-25-2018 ENCEPHALOPATHY EVALUATION Results faxed to ordering physician and sent to HIM Normal [facility] Comment on above: Performed By: #### 3 1018 #### [facility] [address] [place] [address], [facility] FLUID SPECIFIC GRAVITYon SPEC GRAV 1.005 Normal The [facility] Comment on above: Order Comment: No: D o not add to previous draw Performed By: #### 8 5123 #### [facility] [address] [place] [address], [facility] FREE DILANTIN (UNBOUND)on FREE DILANTIN 1.0 mcg/mL Normal 1.0-2.0 The [facility] Comment on above: Order Comment: No: D o not add to previous draw Performed By: #### 5 0103 #### [facility] [address] [place] [address], [place] GLUCOSE CSFon 05-25-2018 GLUCOSE CSF 52 mg/dL Normal 40-70 The [facility] Comment on above: Order Comment: No: D o not add to previous draw Performed By: #### 1 0054 #### [facility] [address] [place] [address], [facility] KEPPRA ILon 05-25-2018 IL Normal The [facility] Comment on above: Order Comment: No: D o not add to previous draw KEPPRA 18 ug/mL Normal [facility] Comment on above: Order Comment: No: [...] PUNCTURE DIAGNOSTICon 05-25-2018 LUMBAR PUNCTURE DIAGNOSTIC [facility] Department of Radiology [address] [place] [phone] Patient Name: SHABANA STALLWORTH : 1960 Sex: F Age: Race: White Pt. Location: [place] [address] Patient Status: I Ordered Date: 05/25/2018 9:10:00 [...] risks are acceptable. Consent was obtained. Timeout: [place] protocol timeout verification performed. PROCEDURE: Lumbar puncture [...] detected. Electronically signed by:Kacie Arnold. Transcribed by: [email or web address], User Resident: Electronically Signed by: KACIE ARNOLD @ 05/25/2018 06:13 PM Normal [facility] Comment on above: Order Comment: No: D o not add to previous draw MRI BRAIN TEMPORAL LOBE W WO CONTRASTon 05-25-2018 MRI BRAIN TEMPORAL LOBE W WO CONTRAST [facility] Department of Radiology [address] [place] [phone] Patient Name: SHABANA STALLWORTH : 1960 Sex: F Age: Race: White Pt. 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 Transcribed by: [email or web address], User Resident: Electronically Signed by: KACIE ARNOLD @ 05/26/2018 04:08 PM Normal [facility] Comment on above: Order Comment: No: D o not add to previous draw PROTHROMBIN TIMEon INR Coag RelTime (PPP) 1.10 {INR} Normal 0.91-1.16 [facility] Comment on above: Order Comment: No: [...] 1995;108:[id number]. Performed By: #### 1 0054 #### [address] Prothrombin time (PT) Coag time (PPP) 14.2 s Normal 12.3-14.8 [facility] Comment on above: Order Comment: No: D o not add to previous draw Result Comment: ALL RESULTS MUST BE INTERPRETED WITH RESPECT TO BLOOD DRAWING ARTIFACT OR DILUTION ERROR OF ANTICOAGULANT AT THE TIME OF SAMPLING. Performed By: #### 1 0054 #### [facility] [address] [facility] [place] [address], [facility] TOTAL PROTEIN CSFon 05-25-19 19 TOTAL PROTEIN CSF 93.0 mg/dL High 20.0-45.0 The [facility] Comment on above: Order Comment: No: D o not add to previous draw Performed By: #### 1 0054 #### [facility] [address] [facility] [place] [address], [facility] TPO ANTIBODY [id number] TPO ANTIBODY <0.3 Normal 0.0-9.0 The [facility] Comment on above: Order Comment: SPECI MEN IS CSF. PLEASE RUN WITH DISCLAIMER. SPOKE WITH CLARISSAREFERENCE NUMBER [id number] results should be interpreted with caution. Assay wasperformed at client's request on a sub-optimal specimen. Result Comment: Perf ormed by [facility], [address] [place] [id number] [email or web address], Jack Torres MD - Lab. Director VANCOMYCIN TIMEDon 9 VANCOMYCIN TIMED 12.6 mcg/mL Normal [facility] Comment on above: Performed By: #### 1 0054 #### [facility] [address] [facility] [place] [address], [facility] VANCOMYCIN TIMED 30.2 mcg/mL Normal [facility] Comment on above: Order Comment: No: D o not add to previous draw Performed By: #### 2 1408 #### [facility] [address] [place] [address], [facility] VANCOMYCIN TROUGHon 05-25-19 19 VANCOMYCIN TROU 10.9 mcg/mL Normal 5.0-20.0 [facility] Comment on above: Performed By: #### 5 0103 #### [facility] [address] *AFB BLOOD CULTUREon 019 *AFB BLOOD CULTURE Clinical Report: (V) Specimen: BLOOD CULTURE Collected: 05/24/2018 12:48 Status: Pending Last Updated: 05/26/2018 15:38 CULT RES (Prelim) Culture In Progress No Growth To Date Normal [facility] Comment on above: Performed By: #### 8 5123 #### [facility] 3000 [place], [place] [id number] [place] [address] *BLOOD CULTUREon 05-24-2018 Bacteria identified Cx Nom (Bld) Clinical Report: (D) Specimen: BLOOD CULTURE Collected: 05/24/2018 14:47 Status: Final Last Updated: 05/30/2018 06:16 CULT RES (Final) No Growth Day 5 Normal [facility] Comment on above: Performed By: #### 2 1408 #### [facility] [address] Bacteria identified Cx Nom (Bld) Clinical Report: (D) Specimen: BLOOD CULTURE Collected: 05/24/2018 12:48 Status: Final Last Updated: 05/30/2018 06:16 CULT RES (Final) No Growth Day 5 Normal [facility] Comment on above: Performed By: #### 2 1408 #### [facility] [address] *FUNGAL BLOOD CULTUREon 05-15 *FUNGAL BLOOD CULTURE Clinical Report: (D) Specimen: BLOOD CULTURE Collected: 05/24/2018 12:48 Status: Final Last Updated: 07/06/2018 11:17 (1) No: Do not add to previous draw CULT RES (Final) No growth after 42 days of incubation Normal [facility] Comment on above: Order Comment: No: D o not add to previous draw Performed By: #### 8 5123 #### [facility] [address] [place] [address], [facility] ANAon 05-24-2018 Nuclear Ab IF titer (S) <1:40 Normal <1:40,1:40 [facility] Comment on above: Order Comment: No: D o not add to previous draw Performed By: #### 2 1408 #### [facility] [address] [place] [address], [facility] ANCA IGG WITH REFLEX [id number] on 05-24-2018 ANCA <1:20 Normal <1:20 [facility] Comment on above: Order Comment: No: [...] collagen vascular disease or arthritis. Performed by [facility], [address] [place] [id number] [email or web address], Jack Torres MD - Lab. Director ANTI DNAon 05-24-2018 ANTI DNA <1:10 Normal <1:10 [facility] Comment on above: Order Comment: No: D o not add to previous draw Performed By: #### 2 1408 #### [facility] [address] [place] [address], [facility] ANTI-BETA 2 GLYCOPROTEIN 1on 05-24-2018 ANTI B2GP1 IGG 0.0 g units Normal 0.0-19.9 [facility] Comment on above: Order Comment: No: D o not add to previous draw Performed By: #### 3 1018 #### [facility] [address] [place] [address], [facility] ANTI B2GP1 IGM 3.6 m units Normal 0.0-19.9 [facility] Comment on above: Order Comment: No: D o not add to previous draw Performed By: #### 3 1018 #### [facility] [address] ANTICARDIOLIPIN ANTIBODYon 0 05-24-2018 CARDIOLIPIN IGG 7.3 GPL Normal 0.0-22.9 [facility] Comment on above: Order Comment: No: D o not add to previous draw Performed By: #### 3 1018 #### [facility] [address] [place] [address], [facility] CARDIOLIPIN IGM 5.5 MPL Normal 0.0-10.9 [facility] Comment on above: Order Comment: No: D o not add to previous draw Performed By: #### 3 1018 #### [facility] [address] ARTERIAL BLOOD GAS WITH ICAo n 05-24-2018 BASE EXCESS -3 mmol/L Low -2-2 [facility] Comment on above: Performed By: #### 3 1018 #### [facility] [address] DELIVERY SYSTEMS MV Normal [facility] Comment on above: Performed By: #### 3 1018 #### [facility] [address] [facility] [place] [address], [facility] FIO2 40 % Normal 21-100 [facility] Comment on above: Performed By: #### 3 1018 #### [facility] [address] [place] [address], [facility] HCO3 molar conc (Bld) 22 mmol/L Low 23-27 [facility] Comment on above: Performed By: #### 3 1018 #### [facility] [address] [place] [address], [facility] IONIZED CALCIUM 1.14 mmol/L Normal 1.13-1.32 [facility] Comment on above: Performed By: #### 3 1018 #### [facility] [address] [place] [address], [facility] MIN VOLUME 5.8 Normal [facility] Comment on above: Performed By: #### 3 1018 #### [facility] [address] [place] [address], [place] MODALITY AC Normal [facility] Comment on above: Performed By: #### 3 1018 #### [facility] [address] [place] [address], [place] Oxygen ppres (Bld) 106 mm[Hg] Critically high 75-100 T he [facility] Comment on above: Performed By: #### 3 1018 #### [facility] [address] [place] [address], [place] Oxygen saturation in Blood 95.3 % Normal 94.0-97.0 [facility] Comment on above: Performed By: #### 3 1018 #### [facility] [address] [place] [address], [place] PCO2 37 mmHg Normal 35-45 [facility] Comment on above: Performed By: #### 3 1018 #### [facility] [address] [place] [address], [place] PEEP 8.0 CMH20 Normal [facility] Comment on above: Performed By: #### 3 1018 #### [facility] [address] [place] [address], [place] PF RATIO 265 mmHg Normal 50-400 [facility] Comment on above: Performed By: #### 3 1018 #### [facility] [address] [place] [address], [place] pH (Bld) 7.38 [pH] Normal 7.35-7.45 [facility] Comment on above: Performed By: #### 3 1018 #### [facility] [address] [place] [address], [place] TIDAL VOLUME (VT) CC 400 Normal [facility] Comment on above: Performed By: #### 3 1018 #### [facility] [address] [place] [address], [place] BASIC METABOLIC PANELon 05-15 Calcium mass conc 8.0 mg/dL Low 8.6-10.3 [facility] Comment on above: Order Comment: No: D o not add to previous draw Performed By: #### 3 1018 #### [facility] [address] [place] [address], [place] Chloride molar conc 104 mmol/L Normal 98-107 [facility] Comment on above: Order Comment: No: D o not add to previous draw Performed By: #### 3 1018 #### [facility] [address] [place] [address], [place] CO2 molar conc 23 mmol/L Normal 21-31 [facility] Comment on above: Order Comment: No: D o not add to previous draw Performed By: #### 3 1018 #### [facility] [address] [place] [address], [place] Creatinine mass conc 0.99 mg/dL Normal 0.60-1.20 [facility] Comment on above: Order Comment: No: D o not add to previous draw Performed By: #### 3 1018 #### [facility] [address] [place] [address], [place] GFR/1.73 sq M predicted among blacks MDRD vol rate/area (S/P/Bld) mL/min/{1.73_m2} Normal >60 [facility] Comment on above: Order Comment: No: D o not add to previous draw Performed By: #### 3 1018 #### [facility] [address] [place] [address], [place] GFR/1.73 sq M predicted among non-blacks MDRD vol rate/area (S/P/Bld) 58 ml/min/1.73sq m Abnormal >60 [facility] Comment on above: Order Comment: No: D o not add to previous draw Performed By: #### 3 1018 #### [facility] [address] [place] [address], [facility] Glucose mass conc 162 mg/dL High 70-100 [facility] Comment on above: Order Comment: No: D o not add to previous draw Performed By: #### 3 1018 #### [facility] [address] [place] [address], [facility] Potassium molar conc 3.8 mmol/L Normal 3.5-5.1 [facility] Comment on above: Order Comment: No: D o not add to previous draw Performed By: #### 3 1018 #### [facility] [address] [place] [address], [facility] Sodium molar conc 135 mmol/L Low 136-145 [facility] Comment on above: Order Comment: No: D o not add to previous draw Performed By: #### 3 1018 #### [facility] [address] [place] [address], [facility] Urea nitrogen mass conc 15 mg/dL Normal 7-25 [facility] Comment on above: Order Comment: No: D o not add to previous draw Performed By: #### 3 1018 #### [facility] [address] [place] [address], [facility] CBC COMPLETE BLOOD COUNTon 0 - Erythrocyte distribution width Ratio (RBC) 13.7 % Normal 11.5-15.0 [facility] Comment on above: Order Comment: No: D o not add to previous draw Performed By: #### 3 1018 #### [facility] [address] [place] [address], [facility] Hematocrit Volume Fraction (Bld) 36.6 % Normal 36.0-45.0 [facility] Comment on above: Order Comment: No: D o not add to previous draw Performed By: #### 3 1018 #### [facility] [address] Hemoglobin mass conc (Bld) 11.8 g/dL Low 12.0-15.0 [facility] Comment on above: Order Comment: No: D o not add to previous draw Performed By: #### 3 1018 #### [facility] [address] MCH Entitic mass (RBC) 27.6 pg Normal 27.0-33.0 [facility] Comment on above: Order Comment: No: D o not add to previous draw Performed By: #### 3 1018 #### [facility] [address] MCHC mass conc (RBC) 32.2 g/dL Normal 32.0-35.0 [facility] Comment on above: Order Comment: No: D o not add to previous draw Performed By: #### 3 1018 #### [facility] [address] MCV Entitic volume (RBC) 85.7 fL Normal 82.0-98.0 [facility] Comment on above: Order Comment: No: D o not add to previous draw Performed By: #### 3 1018 #### [facility] [address] [facility] [address] Nucleated RBC/100 WBC Ratio (Bld) 0 % Normal 0-0 [facility] Comment on above: Order Comment: No: D o not add to previous draw Performed By: #### 3 1018 #### [facility] [address] [place] [address], [facility] PLAT CNT 204 10*3/uL Normal 150-400 [facility] Comment on above: Order Comment: No: D o not add to previous draw Performed By: #### 3 1018 #### [facility] [address] [place] [address], [facility] RBC #/vol (Bld) 4.27 10*6/uL Normal 3.80-5.00 [facility] Comment on above: Order Comment: No: D o not add to previous draw Performed By: #### 3 1018 #### [facility] [address] [place] [address], [facility] WBC #/vol (Bld) 8.94 10*3/uL Normal 4.00-10.60 [facility] Comment on above: Order Comment: No: D o not add to previous draw Performed By: #### 3 1018 #### [facility] [address] [place] [address], [facility] COMPLEMENT 3on 05-24-2018 COMPLEMENT 3 134 mg/dL Normal 79-152 [facility] Comment on above: Order Comment: No: D o not add to previous draw Performed By: #### 5 0103 #### [facility] [address] [place] [address], [facility] COMPLEMENT 4on 05-24-2018 COMPLEMENT 4 28 mg/dL Normal 16-38 [facility] Comment on above: Order Comment: No: D o not add to previous draw Performed By: #### 5 0103 #### [facility] [address] [place] [address], [facility] CRYOGLOBULIN ILon 05-24-2018 CRYOGLOBULIN 0 mg/dL Normal 0-10 [facility] CYCLIC CITRULLINATED PEPTIDE [place] [id number] 05-24-2018 CYCLIC CIT PEP 6 Units Normal 0-19 [facility] Comment on above: Order Comment: No: [...] be monitored and testing repeated. Performed by [facility], [address] [place] [id number] [email or web address], Jack Torres MD - Lab. Director DRVVT SCREENon 05-24-2018 DRVVT SCREEN 1.04 RATIO Normal 0.00-1.20 [facility] Comment on above: Order Comment: No: D o not add to previous draw Performed By: #### 1 0054 #### [facility] [address] EEG Reporton 05-24-2018 EEG Report Name: Shabana Stallworth [facility] MR#: [id number] Age: 58 Physician: Colt Boggs M.D. Date: 05/23/2018 Lab#: [id number] Date of : 1960 Patient Type: I NEURODIAGNOSTIC SERVICES REPORT [address] [place], [place] [address] Board of the [employer] Accredited Laboratory HISTORY: This EEG [...] Ph.D Date Trans: 05/24/2018 05:02 Dipak/luis e [id number] cc: Colt Boggs M.D. [address] [place] [id number] Normal [facility] FREE DILANTIN (UNBOUND)on FREE DILANTIN 1.2 mcg/mL Normal 1.0-2.0 [facility] Comment on above: Order Comment: No: D o not add to previous draw2x could not get Performed By: #### 3 1018 #### [facility] [address] [place] [address], [facility] LUPUS ANTICOAGULANTon 2018 LUPUS ANTICOAGUL Negative Normal NEGATIVE [facility] Comment on above: Order Comment: No: D o not add to previous draw Result Comment: BY H EXAGONAL PHASE PHOSPHOLIPID METHODOLOGY Performed By: #### 2 0608 #### [facility] [address] [place] [address], [facility] MAGNESIUM BLOODon 05-24-2018 Magnesium mass conc 1.7 mg/dL Low 1.9-2.7 [facility] Comment on above: Order Comment: No: D o not add to previous draw Performed By: #### 3 1018 #### [facility] [address] [place] [address], [facility] PHOSPHORUS BLOODon 9 Phosphate mass conc 3.5 mg/dL Normal 2.5-5.0 [facility] Comment on above: Order Comment: No: D o not add to previous draw Performed By: #### 3 1018 #### [facility] [address] [place] [address], [facility] PROCALCITONINon 05-24-2018 Protein mass conc 0.18 ng/mL High 0.00-0.10 [facility] Comment on above: Order Comment: No: [...] PCT<0.5ng/mL Performed By: #### 5 0103 #### [facility] [address] [place] [address], [facility] PTT-LAon 05-24-2018 aPTT Coag time (Bld) 37.3 s Normal 31.0-43.0 [facility] Comment on above: Order Comment: No: D o not add to previous draw Performed By: #### 2 1408 #### [facility] [address] [place] [address], [facility] RHEUMATOID FACTOR SERUMon RA <20 Normal 0-20 [facility] Comment on above: Order Comment: No: D o not add to previous draw Performed By: #### 5 0103 #### [facility] [address] [place] [address], [facility] SJOGRENS ANTIBODIESon 2018 SS-A Negative Normal NEG,NEGATIVE ,Neg [facility] Comment on above: Order Comment: No: D o not add to previous draw Performed By: #### 2 1408 #### [facility] [address] SS-B Negative Normal NEG,NEGATIVE ,Neg [facility] Comment on above: Order Comment: No: D o not add to previous draw Performed By: #### 2 1408 #### [facility] [address] [facility] [place] [place] [address], [facility] SMOOTH MUSCLE ABon 9 SMOOTH MUSC AB 1:20 Abnormal NONE DETECTED [facility] Comment on above: Order Comment: No: D o not add to previous draw Result Comment: NONE DETECTED: LESS THAN 1:20 WEAKLY POSITIVE: 1:20 - 1:40 SUGGESTIVE OF CHRONIC HEPATITIS: 1:80 OR GREATER NOTE: FOR WEAKLY POSITIVE RESULTS, TITER MAY BE PRESENT IN ACUTE VIRAL HEPATITIS, INFECTIOUS MONONUCLEOSIS OR MALIGNANCY. Performed By: #### 2 1408 #### [facility] [address] [place] [address], [facility] URINALYSIS REFLEXon 05-24-19 19 Appearance Nom (U) CLEAR Normal CLEAR [facility] Comment on above: Order Comment: No: D o not add to previous drawCriteria for reflexing a culture was not met. Please call the lab [id number] within 24 hours of collection time if culture is needed Performed By: #### 3 1018 #### [facility] [address] [place] [address], [place] Bilirubin mass conc Negative Normal NEGATIVE [facility] Comment on above: Order Comment: No: D o not add to previous drawCriteria for reflexing a culture was not met. Please call the lab [id number] within 24 hours of collection time if culture is needed Performed By: #### 3 1018 #### [facility] [address] [place] [address], [place] BLOOD MODERATE Abnormal NEGATIVE [facility] Comment on above: Order Comment: No: D o not add to previous drawCriteria for reflexing a culture was not met. Please call the lab [id number] within 24 hours of collection time if culture is needed Performed By: #### 3 1018 #### [facility] [address] [place] [address], [place] Color Nom (U) YELLOW Normal YELLOW [facility] Comment on above: Order Comment: No: D o not add to previous drawCriteria for reflexing a culture was not met. Please call the lab [id number] within 24 hours of collection time if culture is needed Performed By: #### 3 1018 #### [facility] [address] [place] [address], [place] EPIS OCC Normal FEW,OCC,NONE SEEN [facility] Comment on above: Order Comment: No: D o not add to previous drawCriteria for reflexing a culture was not met. Please call the lab [id number] within 24 hours of collection time if culture is needed Performed By: #### 3 1018 #### [facility] [address] [place] [address], [place] Glucose mass conc Negative Normal NEGATIVE [facility] Comment on above: Order Comment: No: D o not add to previous drawCriteria for reflexing a culture was not met. Please call the lab [id number] within 24 hours of collection time if culture is needed Performed By: #### 3 1018 #### [facility] [address] [place] [address], [facility] KETONE Negative Normal NEGATIVE [facility] Comment on above: Order Comment: No: D o not add to previous drawCriteria for reflexing a culture was not met. Please call the lab [id number] within 24 hours of collection time if culture is needed Performed By: #### 3 1018 #### [facility] [address] [place] [address], [facility] LEUK ABRRETT Negative Normal NEGATIVE [facility] Comment on above: Order Comment: No: D o not add to previous drawCriteria for reflexing a culture was not met. Please call the lab [id number] within 24 hours of collection time if culture is needed Performed By: #### 3 1018 #### [facility] [address] [place] [address], [facility] MUCUS THREADS OCC Abnormal NONE SEEN [facility] Comment on above: Order Comment: No: D o not add to previous drawCriteria for reflexing a culture was not met. Please call the lab [id number] within 24 hours of collection time if culture is needed Performed By: #### 3 1018 #### [facility] [address] [place] [address], [facility] Nitrite Ql (U) Negative Normal NEGATIVE [facility] Comment on above: Order Comment: No: D o not add to previous drawCriteria for reflexing a culture was not met. Please call the lab [id number] within 24 hours of collection time if culture is needed Performed By: #### 3 1018 #### [facility] [address] [place] [address], [facility] pH (Bld) 5.0 Normal 5.0-8.0 [facility] Comment on above: Order Comment: No: D o not add to previous drawCriteria for reflexing a culture was not met. Please call the lab [id number] within 24 hours of collection time if culture is needed Performed By: #### 3 1018 #### [facility] [address] [place] [address], [facility] Protein mass conc (U) Negative Normal NEGATIVE [facility] Comment on above: Order Comment: No: D o not add to previous drawCriteria for reflexing a culture was not met. Please call the lab [id number] within 24 hours of collection time if culture is needed Performed By: #### 3 1018 #### [facility] [address] [place] [address], [facility] RBC #/vol (U) 21-50 Abnormal NONE SEEN [facility] Comment on above: Order Comment: No: D o not add to previous drawCriteria for reflexing a culture was not met. Please call the lab [id number] within 24 hours of collection time if culture is needed Performed By: #### 3 1018 #### [facility] [address] [place] [address], [facility] SPEC GRAV 1.023 High 1.015-1.020 [facility] Comment on above: Order Comment: No: D o not add to previous drawCriteria for reflexing a culture was not met. Please call the lab [id number] within 24 hours of collection time if culture is needed Performed By: #### 3 1018 #### [facility] [address] [place] [address], [facility] URIC ACID CRYSTAL OCC Abnormal NONE SEEN [facility] Comment on above: Order Comment: No: D o not add to previous drawCriteria for reflexing a culture was not met. Please call the lab [id number] within 24 hours of collection time if culture is needed Performed By: #### 3 1018 #### [facility] [address] [place] [address], [facility] WBC UA 3-5 Abnormal NONE SEEN [facility] Comment on above: Order Comment: No: D o not add to previous drawCriteria for reflexing a culture was not met. Please call the lab [id number] within 24 hours of collection time if culture is needed Performed By: #### 3 1018 #### [facility] [address] *RAPID FLU AANDB BY ELDON Londono 05-23-2018 *RAPID FLU AANDB BY MOLECULAR Clinical Report: (D) Specimen: NASAL SWAB Collected: 05/23/2018 11:11 Status: Final Last Updated: 05/23/2018 11:48 FLUA RNA (Final) Negative FLUB RNA (Final) Negative Normal [facility] Comment on above: Performed By: #### 3 1018 #### [facility] [address] [place] [address], [facility] AMMONIA BLOODon 05-23-2018 Ammonia mass conc (P) 39 umol/L Normal 16-53 [facility] Comment on above: Order Comment: No: D o not add to previous draw Performed By: #### 2 1408 #### [facility] [address] ARTERIAL BLOOD GAS WITH ICAo n 05-23-2018 BASE EXCESS -1 mmol/L Normal -2-2 [facility] Comment on above: Performed By: #### 3 1018 #### [facility] [address] DELIVERY SYSTEMS MV Normal [facility] Comment on above: Performed By: #### 3 1018 #### [facility] [address] [place] [address], [facility] FIO2 50 % Normal 21-100 [facility] Comment on above: Performed By: #### 3 1018 #### [facility] [address] [place] [address], [facility] HCO3 molar conc (Bld) 22 mmol/L Low 23-27 [facility] Comment on above: Performed By: #### 3 1018 #### [facility] [address] IONIZED CALCIUM 1.12 mmol/L Low 1.13-1.32 [facility] Comment on above: Performed By: #### 3 1018 #### [facility] [address] [place] [address], [facility] MIN VOLUME 11.2 Normal [facility] Comment on above: Performed By: #### 3 1018 #### [facility] [address] [place] [address], [facility] MODALITY A/C Normal [facility] Comment on above: Performed By: #### 3 1018 #### [facility] [address] Oxygen ppres (Bld) 131 mm[Hg] Critically high 75-100 T he [facility] Comment on above: Performed By: #### 3 1018 #### [facility] [address] Oxygen saturation in Blood 96.0 % Normal 94.0-97.0 [facility] Comment on above: Performed By: #### 3 1018 #### [facility] [address] [place] [address], [facility] PCO2 29 mmHg Low 35-45 [facility] Comment on above: Performed By: #### 3 1018 #### [facility] [address] [place] [address], [facility] PEEP 8.0 CMH20 Normal [facility] Comment on above: Performed By: #### 3 1018 #### [facility] [address] [place] [address], [facility] PF RATIO 262 mmHg Normal 50-400 [facility] Comment on above: Performed By: #### 3 1018 #### [facility] [address] [place] [address], [facility] pH (Bld) 7.48 [pH] High 7.35-7.45 [facility] Comment on above: Performed By: #### 3 1018 #### [facility] [address] TIDAL VOLUME (VT) CC 450 Normal [facility] Comment on above: Performed By: #### 3 1018 #### [facility] [address] BNP (B-TYPE NATRIURETIC PEPT PATRICIA)on 05-23-2018 Natriuretic peptide B mass conc (Bld) 39 pg/mL Normal 0-100 [facility] Comment on above: Order Comment: No: D o not add to previous draw Result Comment: Give n the appropriate clinical setting a BNP result of >100 pg/mL indicates congestive heart failure. Performed By: #### 8 5123 #### [facility] [address] CBC W/DIFFon 05-23-2018 ABS BASOPHILS 0.0 10*3/uL Normal 0.0-0.2 [facility] Comment on above: Order Comment: No: D o not add to previous draw Performed By: #### 5 0103 #### [facility] [address] ABS IMM GRANS 0.0 10*3/uL Normal 0.0-0.2 [facility] Comment on above: Order Comment: No: D o not add to previous draw Performed By: #### 5 0103 #### [facility] [address] ABS NEUTROPHILS 5.0 10*3/uL Normal 1.6-7.6 [facility] Comment on above: Order Comment: No: D o not add to previous draw Performed By: #### 5 0103 #### [facility] [address] Basophils #/vol (Bld) 0.4 % Normal 0.0-1.0 [facility] Comment on above: Order Comment: No: D o not add to previous draw Performed By: #### 5 0103 #### [facility] [address] [place] [address], [facility] Eosinophils #/vol (Bld) 0.0 10*3/uL Normal 0.0-0.5 [facility] Comment on above: Order Comment: No: D o not add to previous draw Performed By: #### 5 0103 #### [facility] [address] [place] [address], [facility] Eosinophils/100 WBC (Bld) 0.0 % Normal 0.0-6.0 [facility] Comment on above: Order Comment: No: D o not add to previous draw Performed By: #### 5 0103 #### [facility] [address] [place] [address], [facility] Erythrocyte distribution width Ratio (RBC) 13.2 % Normal 11.5-15.0 [facility] Comment on above: Order Comment: No: D o not add to previous draw Performed By: #### 5 0103 #### [facility] [address] [place] [address], [facility] Hematocrit Volume Fraction (Bld) 43.7 % Normal 36.0-45.0 [facility] Comment on above: Order Comment: No: D o not add to previous draw Performed By: #### 5 0103 #### [facility] [address] [place] [address], [facility] Hemoglobin mass conc (Bld) 14.6 g/dL Normal 12.0-15.0 [facility] Comment on above: Order Comment: No: D o not add to previous draw Performed By: #### 5 0103 #### [facility] [address] [place] [address], [facility] IMMATURE GRANS 0.3 % Normal 0.0-1.0 [facility] Comment on above: Order Comment: No: D o not add to previous draw Performed By: #### 5 0103 #### [facility] [address] [place] [address], [facility] Lymphocytes #/vol (Bld) 1.7 10*3/uL Normal 1.2-4.0 [facility] Comment on above: Order Comment: No: D o not add to previous draw Performed By: #### 5 0103 #### [facility] [address] [place] [address], [facility] Lymphocytes/100 WBC (Bld) 24.8 % Normal 20.0-45.0 [facility] Comment on above: Order Comment: No: D o not add to previous draw Performed By: #### 5 0103 #### [facility] [address] MCH Entitic mass (RBC) 27.7 pg Normal 27.0-33.0 [facility] Comment on above: Order Comment: No: D o not add to previous draw Performed By: #### 5 3 #### [facility] [address] MCHC mass conc (RBC) 33.4 g/dL Normal 32.0-35.0 [facility] Comment on above: Order Comment: No: D o not add to previous draw Performed By: #### 5 3 #### [facility] [address] [facility] [address] MCV Entitic volume (RBC) 82.9 fL Normal 82.0-98.0 [facility] Comment on above: Order Comment: No: D o not add to previous draw Performed By: #### 5 0103 #### [facility] [address] [place] [address], [facility] Monocytes #/vol (Bld) 0.3 10*3/uL Normal 0.1-1.0 [facility] Comment on above: Order Comment: No: D o not add to previous draw Performed By: #### 5 0103 #### [facility] [address] [place] [id number], [facility] MONOS 3.6 % Low 5.0-12.0 [facility] Comment on above: Order Comment: No: D o not add to previous draw Performed By: #### 5 0103 #### [facility] [address] [place] [address], [facility] Neutrophils/100 WBC (Bld) 70.9 % Normal 40.0-72.0 [facility] Comment on above: Order Comment: No: D o not add to previous draw Performed By: #### 5 0103 #### [facility] [address] [place] [address], [facility] Nucleated RBC/100 WBC Ratio (Bld) 0 % Normal 0-0 [facility] Comment on above: Order Comment: No: D o not add to previous draw Performed By: #### 5 0103 #### [facility] [address] [place] [id number], [facility] PLAT CNT 241 10*3/uL Normal 150-400 [facility] Comment on above: Order Comment: No: D o not add to previous draw Performed By: #### 5 0103 #### [facility] [address] [facility] [place] [place] [address], [facility] RBC #/vol (Bld) 5.27 10*6/uL High 3.80-5.00 [facility] Comment on above: Order Comment: No: D o not add to previous draw Performed By: #### 5 0103 #### [facility] [address] [place] [id number], [facility] WBC #/vol (Bld) 7.03 10*3/uL Normal 4.00-10.60 [facility] Comment on above: Order Comment: No: D o not add to previous draw Performed By: #### 5 0103 #### [facility] [address] [place] [address], [facility] COMP METABOLIC PANELon 05-23 Albumin mass conc 4.1 g/dL Normal 3.5-5.7 [facility] Comment on above: Order Comment: No: D o not add to previous draw Performed By: #### 2 5508, 34133, 51375, 18207 #### [facility] [address] [place] [address], [facility] ALKALINE PHOSPH 58 IU/L Normal 34-104 [facility] Comment on above: Order Comment: No: D o not add to previous draw Performed By: #### 2 5508, 46830, 31517, 14671 #### [facility] [address] [place] [address], [place] ALT enzyme act/vol 43 U/L Normal 7-52 [facility] Comment on above: Order Comment: No: D o not add to previous draw Performed By: #### 2 5508, 94557, 55308, 39383 #### [facility] [address] [place] [address], [place] AST enzyme act/vol 30 U/L Normal 13-39 [facility] Comment on above: Order Comment: No: D o not add to previous draw Performed By: #### 2 5508, 82844, 23579, 35436 #### [facility] [address] [place] [address], [facility] Bilirubin mass conc 0.5 mg/dL Normal 0.3-1.0 [facility] Comment on above: Order Comment: No: D o not add to previous draw Performed By: #### 2 5508, 38030, 87043, 72339 #### [facility] [address] [place] [address], [place] Calcium mass conc 9.4 mg/dL Normal 8.6-10.3 [facility] Comment on above: Order Comment: No: D o not add to previous draw Performed By: #### 2 5508, 40553, 89247, 74612 #### [facility] [address] [place] [address], [place] Chloride molar conc 99 mmol/L Normal 98-107 [facility] Comment on above: Order Comment: No: D o not add to previous draw Performed By: #### 2 5508, 29690, 96753, 95158 #### [facility] [address] [place] [address], [place] CO2 molar conc 24 mmol/L Normal 21-31 [facility] Comment on above: Order Comment: No: D o not add to previous draw Performed By: #### 2 5508, 23587, 20558, 53935 #### [facility] [address] [place] [address], [place] Creatinine mass conc 0.97 mg/dL Normal 0.60-1.20 [facility] Comment on above: Order Comment: No: D o not add to previous draw Performed By: #### 2 5508, 84528, 02159, 73351 #### [facility] [address] [place] [address], [place] GFR/1.73 sq M predicted among blacks MDRD vol rate/area (S/P/Bld) mL/min/{1.73_m2} Normal >60 [facility] Comment on above: Order Comment: No: D o not add to previous draw Performed By: #### 2 5508, 37872, 31972, 85623 #### [facility] [address] [place] [address], [place] GFR/1.73 sq M predicted among non-blacks MDRD vol rate/area (S/P/Bld) 59 ml/min/1.73sq m Abnormal >60 [facility] Comment on above: Order Comment: No: D o not add to previous draw Performed By: #### 2 5508, 35716, 71517, 07823 #### [facility] [address] [place] [address], [place] Glucose mass conc 204 mg/dL High 70-100 [facility] Comment on above: Order Comment: No: D o not add to previous draw Performed By: #### 2 5508, 82247, 19177, 97463 #### [facility] [address] [place] [id number], [facility] Potassium molar conc 4.0 mmol/L Normal 3.5-5.1 [facility] Comment on above: Order Comment: No: D o not add to previous draw Performed By: #### 2 5508, 39693, 09947, 62727 #### [facility] [address] [place] [address], [facility] Protein mass conc 7.7 g/dL Normal 6.0-8.3 [facility] Comment on above: Order Comment: No: D o not add to previous draw Performed By: #### 2 5508, 58146, 82923, 05316 #### [facility] [address] [place] [address], [facility] Sodium molar conc 134 mmol/L Low 136-145 [facility] Comment on above: Order Comment: No: D o not add to previous draw Performed By: #### 2 5508, 92166, 32886, 57262 #### [facility] [address] [place] [address], [facility] Urea nitrogen mass conc 18 mg/dL Normal 7-25 [facility] Comment on above: Order Comment: No: D o not add to previous draw Performed By: #### 2 5508, 44506, 06159, 67395 #### [facility] [address] [place] [address], [place] CPKon 05-23-2018 CK enzyme act/vol 47 U/L Normal 30-223 [facility] Comment on above: Performed By: #### 2 5508, 15228, 70034, 91891 #### [facility] [address] [place] [id number], [facility] CT BRAIN W WO CONTRASTon CT BRAIN W WO CONTRAST [facility] Department of Radiology [address] [place] [address] Patient Name: SHABANA STALLWORTH : 1960 Sex: F Age: Race: White Pt. Location: [place] [address] Patient Status: I Ordered Date: 05/23/2018 4:25:00 PM Completed Date: 05/23/2018 06:01 PM Requesting Provider: GALINDO DUNLAP Attending Provider: REG RAHMAN Report Copy [...] findings. Electronically signed by:Jewel Barnett. Transcribed by: [email or web address], User Resident: STORMY ACEVEDO Electronically Signed by: JEWEL BARNETT @ 05/24/2018 07:57 AM I personally read this/these film(s) with this resident Normal [facility] Comment on above: Order Comment: R/O S eizure Disorder History and Physicalon 05-23 History and Physical MR#: [id number] [facility] Pt. Name: Shabana Stallworth Admitted: 05/23/2018 Date of : 1960 Attending Physician: Oral Ortiz MD Room #: VALE [id number] Discharge Date: HISTORY AND PHYSICAL CHIEF COMPLAINT: [...] 5.3, she was changed back from the [place] Thyroid to Synthroid, which she did the [...] Ortiz MD Date Trans: 05/23/2018 12:23 P/mmo [id number] Normal [facility] LACTATE BLOODon 05-23-2018 Lactate molar conc 2.1 mmol/L Normal 0.5-2.2 [facility] Comment on above: Order Comment: No: D o not add to previous draw Performed By: #### 1 0054 #### [facility] [address] Operative Reporton 9 Operative Report MR#: [id number] I [facility] Pt. Name: Shabana Stallworth Room #: [facility] [id number] Discharge Date: Birthdate: 1960 OPERATIVE REPORT DATE [...] for the entire procedure. Date Dict: 05/23/2018/05:10 P/Galindo Dunlap MD Date Trans: 05/23/2018 09:22 P/mmo [id number] cc: Colt Boggs M.D. [address] [place] [address] [address] [facility] [address] Normal [facility] POC GLUCOSE LABon 05-23-2018 Glucose mass conc 184 mg/dL High 70-100 [facility] Comment on above: Performed By: #### 8 5499 #### [facility] [address] PORTABLE CHEST 1 VIEWon PORTABLE CHEST 1 VIEW [facility] Department of Radiology [address] [place] [address] Patient Name: SHABANA STALLWORTH : 1960 Sex: F Age: Race: White Pt. Location: [place] [address] Patient Status: I Ordered Date: 05/23/2018 1:15:00 PM Completed Date: 05/23/2018 01:24 PM Requesting Provider: GALINDO DUNLAP Attending Provider: REG RAHMAN Report Copy [...] findings. Electronically signed by:Jewel Barnett. Transcribed by: [email or web address], User Resident: STORMY ACEVEDO Electronically Signed by: JEWEL BARNETT @ 05/23/2018 08:48 PM I personally read this/these film(s) with this resident Normal [facility] Comment on above: Order Comment: Check NG Tube Position, intubation PROLACTINon 05-23-2018 Protein mass conc 6.23 ng/mL Normal 1.39-24.20 [facility] Comment on above: Performed By: #### 2 5508, 14705, 05557, 48220 #### [facility] [address] [place] [address], [place] TSH3 WITH REFLEXon 9 T4 free mass conc 1.23 ng/dL Normal 0.71-1.85 [facility] Comment on above: Order Comment: No: D o not add to previous draw Performed By: #### 2 5508, 26648, 43933, 40280 #### [facility] [address] [place] [address], [facility] TSH 3RD GENERATION 1.62 uIU/mL Normal 0.34-5.60 [facility] Comment on above: Order Comment: No: D o not add to previous draw Performed By: #### 2 5508, 50945, 15091, 42303 #### [facility] [address] Vital Signs Date Time Vital Sign Value Performing Clinician Facility 03-15-2024 09:23-0500 Body height 167.6 cm Colt Boggs MD Work Phone: [facility] 03-15-2024 09:23-0500 Body mass index (BMI) [Ratio] 35.51 kg/m2 Colt Boggs MD Work Phone: [facility] 03-15-2024 09:23-0500 Body weight 99.79 kg Colt Boggs MD Work Phone: [facility] 03-15-2024 09:23-0500 Diastolic blood pressure 76 mm[Hg] Colt Boggs MD Work Phone: [facility] 03-15-2024 09:23-0500 Heart rate 79 /min Colt Boggs MD Work Phone: [facility] 03-15-2024 09:23-0500 SaO2% (BldA) [Mass fraction] 98 % Colt Boggs MD Work Phone: [facility] 03-15-2024 09:23-0500 Systolic blood pressure 128 mm[Hg] Colt Boggs MD Work Phone: [facility] 02-04-2024 08:53-0400 Body height 167.6 cm Colt Boggs MD Work Phone: [facility] 02-04-2024 08:53-0400 Body mass index (BMI) [Ratio] 35.51 kg/m2 Colt Boggs MD Work Phone: [facility] 02-04-2024 08:53-0400 Body weight 99.79 kg Colt Boggs MD Work Phone: [facility] 12-08-2023 08:54-0400 Body height 167.6 cm Colt Boggs MD Work Phone: [facility] 12-08-2023 08:54-0400 Body mass index (BMI) [Ratio] 35.51 kg/m2 Colt Boggs MD Work Phone: [facility] 12-08-2023 08:54-0400 Body weight 99.79 kg Colt Boggs MD Work Phone: [facility] 12-08-2023 08:54-0400 Heart rate 75 /min Colt Bogsg MD Work Phone: [facility] 12-08-2023 08:54-0400 SaO2% (BldA) [Mass fraction] 99 % Colt Boggs MD Work Phone: [facility] 05-30-2018 06:10-0500 Respiratory rate 12 /min COLT BOGGS [facility] Comment on above: Performed By: #### [id number], 21858, 23442, 16808 #### [facility] [address] [facility] [place] [place] [address], [facility] 05-27-2018 06:54-0500 Respiratory rate 12 /min EDJIMMY BOGGS [facility] Comment on above: Performed By: #### 26460, 37908, 00254, 82913 #### [facility] [address] [place] [id number], [facility] 05-26-2018 07:11-0500 Respiratory rate 12 /min EDJIMMY BOGGS [facility] Comment on above: Performed By: #### [id number] #### [facility] [address] [facility] [place] [place] [address], [facility] 05-25-2018 06:37-0500 Respiratory rate 12 /min COLT BOGGS [facility] Comment on above: Performed By: #### [id number] #### [facility] [address] 05-24-2018 07:31-0500 Respiratory rate 12 /min COLT BOGGS [facility] Comment on above: Performed By: #### [id number] #### [facility] [address] [place] [address], [facility] 05-23-2018 18:54-0500 Respiratory rate 12 /min COLT BOGGS [facility] Comment on above: Performed By: #### [id number] #### [facility] [address] Encounters Encounter Date Encounter Type Care Provider Facility Start: 03-15-2024 End: 03-15-2024 Virginia Boggs MD Work Phone: [facility] Start: 03-15-2024 End: 03-15-2024 Virginia Boggs MD Work Phone: [facility] Start: 03-15-2024 End: 03-15-2024 Office outpatient visit 25 minutes Colt Boggs MD Work Phone: [facility] Comment on above: Benign essential hyp ertension (CMS/HCC); Hypertensive nephropathy (CMS/HCC); Stage 3a chronic kidney disease (HCC) (CMS/HCC); Type 2 diabetes mellitus with stage 3a chronic kidney disease, without long-term current use of insulin (HCC) (CMS/HCC); Mixed hyperlipidemia (CMS/HCC); Myalgia due to statin; Morbid obesity due to excess calories (CMS/HCC); BMI 35.0-35.9,adult Start: 03-15-2024 End: 03-15-2024 ambulatory COLT BOGGS Not Available Start: 03-02-2024 End: 03-02-2024 Clinisync Result Encounter Colt Boggs MD Work Phone: [facility] Unsolicited Start: 03-02-2024 End: 03-02-2024 Clinisync Result Encounter Colt Boggs MD Work Phone: [facility] Unsolic[facility] Start: 02-04-2024 End: 02-04-2024 Bamboo flowsheet Colt Boggs MD Work Phone: [facility] Start: 02-04-2024 End: 02-04-2024 Bamboo flowsheet Colt Boggs MD Work Phone: [facility] Start: 02-04-2024 End: 02-04-2024 Office outpatient visit 25 minutes Colt Boggs MD Work Phone: [facility] Comment on above: Acquired hypothyroid ism (CMS/HCC) (Primary Dx); Bharat's disease (CMS/HCC); Graves disease (CMS/HCC); Chronic fatigue; Morbid obesity due to excess calories (CMS/HCC); Polypharmacy Start: 02-04-2024 End: 02-04-2024 ambulatory COLT BOGGS Not Available Start: 01-13-2024 End: 01-13-2024 Clinisync Result Encounter Colt Boggs MD Work Phone: [facility] Unsolicited Start: 01-13-2024 End: 01-13-2024 Clinisync Result Encounter Colt Boggs MD Work Phone: [facility] Unsolicited Start: 01-10-2024 End: 01-12-2024 Refill Colt Boggs MD Work Phone: [facility] Comment on above: Type 2 diabetes oliva itus with stage 3a chronic kidney disease, without long-term current use of insulin (HCC) (CMS/HCC) Start: 12-22-2023 End: 12-22-2023 ambulatory COLT BOGGS Not Available Start: 12-08-2023 End: 12-08-2023 Bamboo flowsheet Colt Boggs MD Work Phone: [facility] Start: 12-08-2023 End: 12-08-2023 Bamboo flowsheet Colt Boggs MD Work Phone: [facility] Start: 12-08-2023 End: 12-08-2023 Patient encounter status Colt Boggs MD Work Phone: [facility] Work Phone: Start: 12-08-2023 End: 12-08-2023 Periodic preventive med est patient 40-64yrs Colt Boggs MD Work Phone: [facility] Comment on above: Encounter for wellne ss examination in adult (Primary Dx); Advance directive discussed with patient; Encounter for screening for malignant neoplasm of colon; Screening for cervical cancer; Screening mammogram, encounter for; Screening for osteoporosis; Screening for colon cancer; Type 2 diabetes mellitus with stage 3a chronic kidney disease, without long-term current use of insulin (HCC) ([facility]); Class 2 severe obesity due to excess calories with serious comorbidity and body mass index (BMI) of 35.0 to 35.9 in adult ([facility]); Microalbuminuria Start: 12-08-2023 End: 12-08-2023 ambulatory COLT BOGGS Not Available Start: 10-08-2023 End: 10-08-2023 ambulatory COLT BOGGS Not Available Start: 06-18-2023 End: 06-18-2023 ambulatory COLT BOGGS Not Available Start: 08-13-2022 End: 08-14-[address] COLT BOGGS . Facility: Start: 07-04-2022 End: 07-05-[address] COLT BOGGS . Facility: Start: 06-20-[address] COLT BOGGS . Fac ility:[facility] Start: 02-25-2022 End: 02-26-[address] COLT BOGGS . Facility: Start: 09-01-2021 End: 09-02-[address] COLT BOGGS . Facility: Start: 05-23-2018 End: 06-03-2018 Evaluation and management of inpatient COLT BOGGS Facility:[facility] Procedures Date Procedure Procedure Detail Performing Clinician Start: 03-02-2024 ALL THYROXINE (T4) FREE Colt Boggs MD Work Phone: Start: 01-13-2024 ALL THYROXINE (T4) FREE Colt Boggs MD Work Phone: Start: 12-22-2023 Mammography Colt argueta MD Work Phone: Start: 12-08-2023 Urine albumin semiquantitative Colt Boggs MD Work Phone: Start: 02-26-2019 Mammography Colt argueta MD Work Phone: Start: 05-25-2018 Drainage of Spinal C anal, Percutaneous Approach, Diagnostic EHAB Dipak KULKARNI Start: 05-25-2018 FLUOROSCOPY OF SPINAL CORD EHAB A ANUSHKATAHAWSaad Start: 05-23-2018 INSERTION OF ENDOTRA CHEAL AIRWAY INTO TRACHEA, VIA OPENING REG RAHMAN Start: 05-23-2018 MEASURE OF ARTERIAL SATURATION, PERIPHERAL, PERC APPROACH MARC HAINES Start: 05-23-2018 MEASUREMENT OF STRUCTURAL ENGINEERING TECHNICIAN E LECTR ACTIVITY, AMMONIA NITRATE OPERATOR APPROACH MARIBEL MARINELLI Start: 05-23-2018 MONITORING OF STRUCTURAL ENGINEERING TECHNICIAN EL ECTR ACTIVITY, AMMONIA NITRATE OPERATOR APPROACH MARIBEL MARINELLI Start: 05-23-2018 RESPIRATORY VENTILAT ION, GREATER THAN 96 CONSECUTIVE HOURS REG RAHMAN Plan of Treatment Date Care Activity Detail Author Start: 01-04-2027 Screening for malign ant neoplasm of colon [facility] Start: 12-21-2024 Screening for malign ant neoplasm of breast Mammogram [facility] Start: 12-07-2024 Urine screening for protein Diabetes: Urine Protein Screening [facility] Start: 06-08-2024 End: 06-08-2024 Patient encounter procedure 06/08/2024 9:00 AM EST Office Visit [facility] [address] [address] Colt Boggs MD [address] [facility] [address] [place] [address] (Fax) [facility] Start: 04-24-2024 Glaucoma screening Diabetes: R etinopathy Screening [facility] Start: 03-15-2024 End: 03-15-2025 Hemoglobin A1c/Hemoglobin.total in Blood Hemoglobin A1c Lab Routine Type 2 diabetes mellitus with stage 3a chronic kidney disease, without long-term current use of insulin (HCC) ([facility]) Expected: 03/15/2024 (Approximate), Expires: 03/15/2025 [facility] Work Phone: Comment on above: Expected: 03/15/2024 (Approximate), Expires: 03/15/2025 Start: 03-15-2024 End: 03-15-2024 Patient encounter procedure [facility] Comment on above: Benign essential hyp ertension (CMS/HCC); Hypertensive nephropathy (CMS/HCC); Stage 3a chronic kidney disease (HCC) (CMS/HCC); Mixed hyperlipidemia (CMS/HCC); Myalgia due to statin; Type 2 diabetes mellitus with stage 3a chronic kidney disease, without long-term current use of insulin (HCC) (CMS/HCC); Morbid obesity due to excess calories (CMS/HCC); BMI 35.0-35.9,adult Start: 02-04-2024 End: 02-04-2024 Patient encounter procedure 02/04/2024 9:00 AM EDT Office Visit [facility] [address] [facility] [address] [place] [address] Colt Boggs MD [address] [place] [address] Bharat's disease (CMS/HCC); Acquired hypothyroidism (CMS/HCC); Chronic fatigue; Morbid obesity due to excess calories (CMS/HCC) [facility] Comment on above: Bharat's disease (CMS/HCC); Acquired hypothyroidism (CMS/HCC); Chronic fatigue; Morbid obesity due to excess calories (CMS/HCC) Start: 12-14-2023 Influenza vaccination Influenza Vacc ine (#1) [facility] Start: 12-08-2023 End: 02-06-2025 MG Breast - bilateral Screening Bilateral screening mammogram Imaging Routine Screening mammogram, encounter for Expected: 12/08/2023, Expires: 02/06/2025 [facility] Work Phone: Comment on above: Expected: 12/08/2023 , Expires: 02/06/2025 Start: 12-08-2023 End: 12-08-2023 Patient encounter procedure 12/08/2023 9:00 AM EDT Office Visit [facility] [address] [facility] [address] [place] [address] Colt Boggs MD [address] [place] [address] (Fax) Encounter for wellness examination in adult; Advance directive discussed with patient; Encounter for screening for malignant neoplasm of colon; Screening for cervical cancer; Screening mammogram, encounter for; Screening for osteoporosis [facility] Comment on above: Encounter for wellne ss examination in adult; Advance directive discussed with patient; Encounter for screening for malignant neoplasm of colon; Screening for cervical cancer; Screening mammogram, encounter for; Screening for osteoporosis Start: 02-25-2023 Urine screening for protein Diabetes: Urine Protein Screening [facility] Start: 02-05-2023 Hemoglobin A1c measurement Diabetes: Hemoglobin A1C [facility] Start: 02-27-2020 Screening for malign ant neoplasm of breast Mammogram [facility] Start: 01-26-1992 Screening for malign ant neoplasm of cervix [facility] Start: 1983 Screening for malign ant neoplasm of cervix Pap Smear [facility] Start: 1960 Screening for malign ant neoplasm of colon [facility] Noninvasive colorect al cancer DNA and occult blood screening [Presence] in Stool Cologuard colon cancer screening Lab Routine Encounter for screening for malignant neoplasm of colon Ordered: 12/08/2023 [facility] Comment on above: Ordered: 12/08/2023 Immunizations Immunization Date Immunization Notes Care Provider [facility] 01-08-2017 influenza, injectabl e, quadrivalent, preservative free Colt Boggs MD Work Phone: [facility] 01-08-2017 influenza virus vacc ine, unspecified formulation Colt Boggs MD Work Phone: [facility] Payers Date Payer Category Payer Medicaid [id number] 2022 Medicaid [id number] 1960 Unknown [id number] 2.16.8 [id number] 1960 Unknown [id number] 2.16.84 [id number] 1960 Unknown [id number] 2.16.84 [id number] 1960 Unknown [id number] 2.16.84 [id number] 1960 Unknown [id number] 2.16.84 0.1.803678.3.579.2.593 1960 Unknown [id number] 2.16.84 0.1.221365.3.579.2.593 1960 Unknown [id number] 2.16.84 0.1.528015.3.579.2.1259 1960 Unknown [id number] 2.16.84 0.1.096050.3.579.2.1259 1960 Unknown [id number] 2.16.84 0.1.623165.3.579.2.1259 1960 Unknown [id number] 2.16.84 0.1.644792.3.579.2.1259 1960 Unknown [id number] 2.16.84 [id number] 1960 Unknown [id number] 2.16.84 [id number] 1959 Unknown [id number] 1957 Unknown [id number] Social History Date Type Detail Facility Start: 12-04-2022 Tobacco smoking stat [facility] Never smoked tobacco [facility] Start: 12-04-2022 Tobacco use and exposure Smoke less tobacco non-user [facility] Start: 10-08-2023 End: 12-08-2023 Alcoholic beverage intake Lifetime non-drinker (finding) [facility] Start: 01-01-2023 End: 01-09-2023 History of Social function [facility] Start: 01-01-2023 End: 01-09-2023 Humiliation, Afraid, Rape, and Kick questionnaire [HARK] [facility] Within the last year , have you been afraid of your partner or ex-partner? No [facility] Do you belong to any clubs or organizations such as restoration groups, unions, fraternal or athletic groups, or school groups? Yes [facility] Are you now , , , , never or living with a partner? [facility] How often to you hav e a drink containing alcohol? Never [facility] How many standard dr inks containing alcohol do you have on a typical day? Patient does not drink [facility] How hard is it for y ou to pay for the very basics like food, housing, medical care, and heating Not very hard [facility] Do you feel stress - tense, restless, nervous, or anxious, or unable to sleep at night because your mind is troubled all the time - these days [OSQ] Not at all [facility] (I/We) worried wheth er (my/our) food would run out before (I/we) got money to buy more. Never true [facility] Start: 11-12-2022 Education 21 [facility] Start: 1960 Sex assigned at Not on file [facility] NEGATED: Highlighted rowStart: NINF History of tobacco use Passive smoker [facility] History of Present illness Narrative 03-15-2024 Colt Boggs MD - 03/15/2024 9:30 AM EST Note Date & Type Note Facility 03-15-2024 History of Presen t illness Narrative Images from the original note were not included. Patient ID: Shabana Stallworth is a 64 y.o. female who presents for: Hypertension Patient is here for follow-up of elevated blood pressure. She is not exercising and is adherent to a low-salt diet. Blood pressure is well controlled at home. Cardiac symptoms: none. Patient denies chest pain, dyspnea, irregular heart beat, lower extremity edema, and palpitations. Cardiovascular risk factors: diabetes mellitus, dyslipidemia, hypertension, obesity (BMI >= 30 kg/m2), and sedentary lifestyle. Use of agents associated with hypertension: thyroid hormones. History of target organ damage: none. Hyperlipidemia Pt who presents for follow-up of dyslipidemia. A repeat fasting lipid profile was done. The patient does not use medications that may worsen dyslipidemias (corticosteroids, progestins, anabolic steroids, diuretics, beta-blockers, amiodarone, cyclosporine, olanzapine). Exercise: rarely. Diabetes Mellitus Patient presents for follow up of diabetes. Current symptoms include: none. Symptoms have stabilized. Patient denies increased appetite, paresthesia of the feet, polydipsia, polyuria, and visual disturbances. Evaluation to date has included: fasting blood sugar, fasting lipid panel, and hemoglobin A1C. Home sugars: patient does not check sugars. Review of Systems Constitutional: Negative for activity change and fatigue. Respiratory: Negative for cough, shortness of breath and wheezing. Cardiovascular: Negative for chest pain, palpitations and leg swelling. Neurological: Negative for light-headedness and headaches. Objective The patient is pleasant and in no acute distress. The neck is supple and trachea is midline. No masses are appreciated. The heart is regular rate and rhythm without S3, S4. No murmur. The patient has normal respiratory pattern. The breath sounds are symmetrical without evidence of rhonchi or rales. No wheezing. The skin is warm and dry. The lower extremities have trace edema. The patient has good eye contact and speech is clear. Appropriate affect. Visit Vitals BP 128/76 Pulse 79 Ht 5' 6 Wt 220 lb SpO2 98% BMI 35.51 kg/m OB Status Postmenopausal Smoking Status Never BSA 2.16 m Component Ref Range & Units 13 d ago 5 mo ago 9 mo ago GLYCOHEMOGLOBIN A1C 4.5 - 6.2 % 8.3 High 6.2 CM 7.4 High Allergies Allergen Reactions Semaglutide Other Reaction(s): nausea and vomiting, hair fell out Crestor [Rosuvastatin] Other Bad muscle and Joint Pain Nalbuphine GI intolerance Current Outpatient Medications on File Prior to Visit Medication Sig Dispense Refill aspirin 81 MG EC tablet Take 81 mg by mouth 1 (one) time each day at the same time. biotin 1 MG capsule Take 1 capsule by mouth 1 (one) time each day at the same time. glipiZIDE (Glucotrol) 5 MG tablet Take 2 tablets in the morning and 1 tablet in the evening. 90 tablet 2 levothyroxine (Synthroid, Levoxyl) 75 MCG tablet Take 1 tablet (75 mcg) by mouth in the morning. Take before meals. 30 tablet 11 losartan (Cozaar) 100 MG tablet Take 1 tablet (100 mg) by mouth Daily 30 tablet 2 metFORMIN (Glucophage) 1000 MG tablet Take 1 tablet (1,000 mg) by mouth in the morning and 1 tablet (1,000 mg) in the evening. Take with meals. 60 tablet 2 metoprolol tartrate (Lopressor) 50 MG tablet Take 1 tablet (50 mg) by mouth in the morning and 1 tablet (50 mg) before bedtime. 60 tablet 2 Potassium 99 MG tablet Take 99 mg by mouth 1 (one) time each day at the same time. No current facility-administered medications on file prior to visit. 1. Benign essential hypertension (CMS/HCC) Chronic problem, stable, to goal. In prescribing a renewal to their current medication, consideration of the following encompasses moderate decision making; the current prescriptions and supplements, the current allergies and medication intolerances, current medical conditions, and potential drug interactions. Any changes to risks, benefits, and reason for renewing their current medication due to the above were discussed. The patient was given a chance to ask questions today and all questions were answered. The patient is to contact us if any other questions arise or if any problems occur. (Utilizing the original 1994/1996 guidelines or the 2020 office/outpatient code guidelines for selecting the level of E/M service, In both sets of guidelines, prescription drug management appears in the moderate medical decision making (MDM) row. Neither the original guidelines nor the new guidelines state that a new prescription or change is needed in order to credit prescription drug management) - losartan (Cozaar) 100 MG tablet; Take 1 tablet (100 mg) by mouth Daily Dispense: 30 tablet; Refill: 2 - metoprolol tartrate (Lopressor) 50 MG tablet; Take 1 tablet (50 mg) by mouth in the morning and 1 tablet (50 mg) before bedtime. Dispense: 60 tablet; Refill: 2 2. Hypertensive nephropathy (CMS/HCC) 3. Stage 3a chronic kidney disease (HCC) (CMS/HCC) 4. Type 2 diabetes mellitus with stage 3a chronic kidney disease, without long-term current use of insulin (HCC) (CMS/HCC) Chronic problem that is unstable and has significant worsening of her hemoglobin A1c. She is not to goal. I did review the last 3 hemoglobin A1c levels with. She notes she may have been eating a little bit more sugar but nothing significant. Has a role she does not follow any specific lifestyle changes. We do have her allergic to Ozempic. She states however that she knows she was on Trulicity previously and she tolerated. We did talk about several options including Farxiga, but she wants to try the Trulicity. We also discussed with the Trulicity that we would discontinue the glipizide. In prescribing a new medication consideration of the following encompasses moderate decision making: the current prescriptions and supplements, the current allergies and medication intolerances, the current medical conditions, and potential drug interactions. Risks, benefits, and reason for starting their medication were discussed. The patient was given a chance to ask questions today and all questions were answered. The patient is to contact us if any other questions arise or if any problems occur with the adjustment in their medication. - Dulaglutide (Trulicity) 0.75 MG/0.5ML solution auto-injector; Inject 0.75 mg under the skin 1 (one) time per week Dispense: 2 mL; Refill: 0 - metFORMIN (Glucophage) 1000 MG tablet; Take 1 tablet (1,000 mg) by mouth in the morning and 1 tablet (1,000 mg) in the evening. Take with meals. Dispense: 60 tablet; Refill: 2 - Hemoglobin A1c; Future - Hemoglobin A1c 5. Mixed hyperlipidemia (CMS/HCC) Chronic problem which is a comorbid condition with the hypertension and diabetes. 6. Myalgia due to statin We had tried some sort of statin years ago and that lost in the documentation shuffle. We did try her on the Crestor and within a few days she started getting myalgias. 7. Morbid obesity due to excess calories (CMS/HCC) Chronic problem that is a comorbid condition. - Dulaglutide (Trulicity) 0.75 MG/0.5ML solution auto-injector; Inject 0.75 mg under the skin 1 (one) time per week Dispense: 2 mL; Refill: 0 8. BMI 35.0-35.9,adult Chronic problem that defines the morbid obesity documented in this encounter [facility] Evaluation note 03-15-2024 Note Date & Type Note Facility 03-15-2024 Evaluation note Diagnosis Type 2 diabetes mellitus with stage 3a chronic kidney disease, without long-term current use of insulin (HCC) (CMS/HCC) Mixed hyperlipidemia (CMS/HCC) Mixed hyperlipidemia Benign essential hypertension (CMS/HCC) Essential hypertension, benign Hypertensive nephropathy (CMS/HCC) Unspecified hypertensive kidney disease with chronic kidney disease stage I through stage IV, or unspecified Stage 3a chronic kidney disease (HCC) (CMS/HCC) Benign essential hypertension (CMS/HCC) Essential hypertension, benign Hypertensive nephropathy (CMS/HCC) Unspecified hypertensive kidney disease with chronic kidney disease stage I through stage IV, or unspecified Stage 3a chronic kidney disease (HCC) (CMS/HCC) Type 2 diabetes mellitus with stage 3a chronic kidney disease, without long-term current use of insulin (HCC) (CMS/HCC) Mixed hyperlipidemia (CMS/HCC) Mixed hyperlipidemia Myalgia due to statin Morbid obesity due to excess calories (CMS/HCC) BMI 35.0-35.9,adult documented in this encounter [facility] History of Present illness Narrative 02-04-2024 Colt Boggs MD - 02/04/2024 9:00 AM EDT Note Date & Type Note Facility 02-04-2024 History of Presen t illness Narrative Images from the original note were not included. Patient ID: Shabana Stallworth is a 64 y.o. female who presents for: Pt here today to review his/hers thyroid labs and any medication changes needed. Fatigue: Present, Unchanged Weight Gain: Absent Inability to lose weight: Present, Unchanged Hair Changes: Absent She is not controlling her dietary intake. She is not exercising. Review of Systems Constitutional: Positive for fatigue. Negative for appetite change. HENT: Negative for trouble swallowing and voice change. Cardiovascular: Negative for palpitations. Musculoskeletal: Positive for arthralgias and myalgias. Psychiatric/Behavioral: Negative for sleep disturbance. The patient is not nervous/anxious. Endocrine: Negative for cold intolerance and heat intolerance. Clinisync Result Encounter on 01/13/2024 Component Date Value Ref Range Status FREE T4 01/13/2024 1.26 0.76 - 1.46 ng/dL Final FREE T3 01/13/2024 2.76 2.18 - 3.98 pg/mL Final THYROID STIMULATING HORMONE 01/13/2024 3.087 0.358 - 3.740 uIU/mL Final Objective The patient is pleasant and in no acute distress The patient does not appear to have a gross neurologic deficit. The patient has good eye contact and clear speech Visit Vitals Ht 5' 6 Wt 220 lb BMI 35.51 kg/m OB Status Postmenopausal Smoking Status Never BSA 2.16 m Allergies Allergen Reactions Semaglutide Other Reaction(s): nausea and vomiting, hair fell out Crestor [Rosuvastatin] Other Bad muscle and Joint Pain Nalbuphine GI intolerance Current Outpatient Medications on File Prior to Visit Medication Sig Dispense Refill aspirin 81 MG EC tablet Take 81 mg by mouth 1 (one) time each day at the same time. biotin 1 MG capsule Take 1 capsule by mouth 1 (one) time each day at the same time. glipiZIDE (Glucotrol) 5 MG tablet Take 2 tablets in the morning and 1 tablet in the evening. 90 tablet 2 losartan (Cozaar) 100 MG tablet Take 1 tablet (100 mg) by mouth Daily 30 tablet 2 metFORMIN (Glucophage) 1000 MG tablet Take 1 tablet (1,000 mg) by mouth in the morning and 1 tablet (1,000 mg) in the evening. Take with meals. 60 tablet 2 metoprolol tartrate (Lopressor) 50 MG tablet Take 1 tablet (50 mg) by mouth in the morning and 1 tablet (50 mg) before bedtime. 60 tablet 2 Potassium 99 MG tablet Take 99 mg by mouth 1 (one) time each day at the same time. [DISCONTINUED] levothyroxine (Synthroid, Levoxyl) 75 MCG tablet Take 1 tablet (75 mcg) by mouth in the morning. Take before meals. 30 tablet 0 No current facility-administered medications on file prior to visit. 1. Acquired hypothyroidism (CMS/[facility]) (Primary) This is a complex chronic problem, stable, to goal; management requires moderate decision making I reviewed diet and exercise with the patient. I discussed the patient's current psychosocial and physical condition and the stress impact upon them. I reviewed the multiple unique laboratories and explained the results to the patient. The patient has been re-educated concerning the above diagnoses and that the treatment for some of these may not be considered the standard of care, including TSH suppression when utilized. The patient has been re-educated and instructed concerning medication timing, diet, exercise, and stress reduction as appropriate. I reviewed the patient's current prescriptions and discussed the possibilities of medication renewals, adjustments, new medication start, or stop medication as appropriate. The patient has been instructed to follow up and bring a diet and exercise log, obtain the unique laboratory tests ordered, and the importance of follow up and compliance. The patient was given a chance to ask questions today and all questions were answered. The patient is to contact us if any other questions arise or if any problems occur. - levothyroxine (Synthroid, Levoxyl) 75 MCG tablet; Take 1 tablet (75 mcg) by mouth in the morning. Take before meals. Dispense: 30 tablet; Refill: 11 2. Bharat's disease (CMS/HCC) Chronic problem, clinically asymptomatic, causative of the acquired hypothyroidism. 3. Graves disease (CMS/HCC) Chronic problem, currently clinically asymptomatic. She has had ocular involvement before. She follows with and I ocular care technician. 4. Chronic fatigue Chronic problem, stable, complex in nature with moderate decision making. I discussed with the patient and/or their textiles sales representative, their fatigue issues. We discussed how this is improved significantly. We discussed that the patient will almost certainly need to continue to make lifestyle changes including diet, sleep, exercise, and stress management as appropriate. We discussed how this is almost always a multifactorial problem. We further discussed how we will continue to search for refinements in their current treatments or evaluation for further disease processes and then support or treat them as appropriate. We discussed how we can frequently improve the symptoms, but may not be able to completely cure or resolve the issue. The patient was given a chance to ask questions and all questions were answered. 5. Morbid obesity due to excess calories (CMS/HCC) Encouraged the lifestyle changes we have previously discussed on multiple occasions. 6. Polypharmacy Chronic problem The patient meets the criteria for polypharmacy; 5 or more prescriptions or multi-morbidity defined as 5 or more diagnoses. Polypharmacy can significantly increase the risk of preventable adverse drug events and negatively impact adherence. Consideration of diverse factors such as clinician agreement, patient perspective, and de-prescribing, as appropriate can improve patient outcomes while simplifying care. This requires longitudinal monitoring as there is at least a moderate risk of morbidity and requires at least a moderate degree of evaluation and management. documented in this encounter [facility] Evaluation note 02-04-2024 Note Date & Type Note Facility 02-04-2024 Evaluation note Diagnosis Type 2 diabetes mellitus with stage 3a chronic kidney disease, without long-term current use of insulin (HCC) (CMS/HCC) Mixed hyperlipidemia (CMS/HCC) Mixed hyperlipidemia Benign essential hypertension (CMS/HCC) Essential hypertension, benign Hypertensive nephropathy (CMS/HCC) Unspecified hypertensive kidney disease with chronic kidney disease stage I through stage IV, or unspecified Stage 3a chronic kidney disease (HCC) (CMS/HCC) Acquired hypothyroidism (CMS/HCC)- Primary Unspecified hypothyroidism Bharat's disease (CMS/HCC) Chronic lymphocytic thyroiditis Graves disease (CMS/HCC) Toxic diffuse goiter without mention of thyrotoxic crisis or storm Chronic fatigue Other malaise and fatigue Morbid obesity due to excess calories (CMS/HCC) Polypharmacy Issue of repeat prescriptions documented in this encounter [facility] History of Present illness Narrative 12-08-2023 Colt Boggs MD - 12/08/2023 9:00 AM EDT Note Date & Type Note Facility 12-08-2023 History of Presen t illness Narrative Images from the original note were not included. Patient ID: Shabana Stallworth is a 63 y.o. female who presents for: See Scanned Wellness packet Advance Directive/Living Will: No Health Care Power of Director Of Application Development: No Review of Systems Constitutional: Negative for appetite change, chills, fever and unexpected weight change. Breasts: Negative for breast mass and breast discharge. Respiratory: Negative for cough, shortness of breath and wheezing. Cardiovascular: Negative for chest pain, palpitations and leg swelling. Gastrointestinal: Negative for abdominal pain, constipation and diarrhea. Genitourinary: Negative for frequency and urgency. Neurological: Negative for light-headedness and headaches. Psychiatric/Behavioral: Negative for behavioral problems and sleep disturbance. The patient is not nervous/anxious. Objective The patient is pleasant and in no acute distress. The head is normocephalic and atraumatic. Both eyes appear grossly normal without obvious lid pathology or icterus. Both ears hearing is grossly intact. The neck is supple and trachea is midline. No masses are appreciated. The anterior cervical lymphatics demonstrates shoddy bilateral nontender lymphadenopathy. There is no supraclavicular lymphadenopathy. The heart is regular rate and rhythm without S3, S4. No murmur. The patient has normal respiratory pattern. The breath sounds are symmetrical without evidence of rhonchi or rales. No wheezing. The skin is warm and dry. The lower extremities have trace edema. Neurologic screening exam is nonfocal. The patient is alert. There is no overt gross evidence of cognitive impairment The patient has good eye contact and speech is clear. Appropriate affect. Visit Vitals Pulse 75 Ht 5' 6 Wt 220 lb SpO2 99% BMI 35.51 kg/m OB Status Postmenopausal Smoking Status Never BSA 2.16 m 12/04/2022 01/09/2023 06/18/2023 10/08/2023 12/08/2023 Vitals Weight (lb) 217 213 213 220 220 Office Visit on 12/08/2023 Component Date Value Ref Range Status MICROALBUMIN, URINE 12/08/2023 10 Final ALB/CREAT RATIO 12/08/2023 100 Final URINE CREAT 12/08/2023 0.1 Final Allergies Allergen Reactions Semaglutide Other Reaction(s): nausea and vomiting, hair fell out Crestor [Rosuvastatin] Other Bad muscle and Joint Pain Nalbuphine GI intolerance Current Outpatient Medications on File Prior to Visit Medication Sig Dispense Refill aspirin 81 MG EC tablet Take 81 mg by mouth 1 (one) time each day at the same time. biotin 1 MG capsule Take 1 capsule by mouth 1 (one) time each day at the same time. glipiZIDE (Glucotrol) 5 MG tablet Take 2 tablets in the morning and 1 tablet in the evening. 90 tablet 2 levothyroxine (Synthroid, Levoxyl) 75 MCG tablet Take 1 tablet (75 mcg) by mouth in the morning. Take before meals. 30 tablet 11 losartan (Cozaar) 100 MG tablet Take 1 tablet (100 mg) by mouth Daily 30 tablet 2 metFORMIN (Glucophage) 1000 MG tablet Take 1 tablet (1,000 mg) by mouth in the morning and 1 tablet (1,000 mg) in the evening. Take with meals. 60 tablet 2 metoprolol tartrate (Lopressor) 50 MG tablet Take 1 tablet (50 mg) by mouth in the morning and 1 tablet (50 mg) before bedtime. 60 tablet 2 Potassium 99 MG tablet Take 99 mg by mouth 1 (one) time each day at the same time. No current facility-administered medications on file prior to visit. 1. Encounter for wellness examination in adult I have reviewed the patients PMShx, medications, and reconciled the problem list. Health maintenance and risk was reviewed and discussed. I also reviewed and discussed as appropriate; immunizations, colon cancer screening, breast and cervical cancer screening, recommended and any current lab evaluation. All items were brought up to date unless declined by the patient. 2. Advance directive discussed with patient Patient voluntarily agreed to discuss advance care planning at today's wellness visit. We discussed that an advance directive is a legal document that only goes into effect if the patient is incapacitated and unable to speak for themselves. This would help us to decide what care the patient would want. We discussed emergency treatments to keep the patient alive such as CPR, ventilator use and concept of comfort. We discussed how patients could make their wishes known through a living will, durable power of energy attorney for healthcare, or other advanced directives. We discussed telling hannah people about their advance and a copy will be kept in the EHR. I discussed that they should also make me an emergency contact in their cell phone, and/or notify their POA that I have a copy of the advanced directives. 3. Encounter for screening for malignant neoplasm of colon Discussion with patient about being overdue for colon cancer screening and utilizing colonoscopy versus Cologuard. Patient has chosen Cologuard. She understands if positive she will need to have colonoscopy. - Cologuard colon cancer screening 4. Screening for cervical cancer Patient is in a longstanding monogamous relationship. She has had previous Pap smears and none were abnormal to her memory. I do remember we had a discussion previously and she has declined further cervical cancer screening as she is at low risk. 5. Screening mammogram, encounter for - Bilateral screening mammogram; Future - Bilateral screening mammogram 6. Screening for osteoporosis Patient declined DEXA scan 7. Screening for colon cancer As above 8. Type 2 diabetes mellitus with stage 3a chronic kidney disease, without long-term current use of insulin (HCC) ([facility]) Patient was overdue And is screen today. - POCT microalbumin manually resulted 9. Class 2 severe obesity due to excess calories with serious comorbidity and body mass index (BMI) of 35.0 to 35.9 in adult ([facility]) Chronic problems and we have discussed multiple times lifestyle. 10. Microalbuminuria Chronic problem, defining an aspect the nephropathy, with significant risk, uncertain progression requiring longitudinal monitoring, and moderate decision making. Microalbuminuria describes a moderate increase in the level of urine albumin. Normally, the kidneys filter albumin, so if the kidney leaks small amounts of albumin into the urine then it is a indicator of chronic kidney disease. Microalbuminuria is an independent indicator of increased cardiovascular risk among individuals and therefore can be used for risk stratification for cardiovascular disease. documented in this encounter [facility] Evaluation note Note Date & Type Note Facility Evaluation note Diagnosis Encounter for wellness examination in adult- Primary Advance directive discussed with patient Encounter for screening for malignant neoplasm of colon Screening for cervical cancer Screening for malignant neoplasm of the cervix Screening mammogram, encounter for Screening for osteoporosis Special screening for osteoporosis Screening for colon cancer Special screening for malignant neoplasms, colon Type 2 diabetes mellitus with stage 3a chronic kidney disease, without long-term current use of insulin (HCC) ([facility]/HCC) Class 2 severe obesity due to excess calories with serious comorbidity and body mass index (BMI) of 35.0 to 35.9 in adult (CMS/[facility]) Microalbuminuria Proteinuria documented in this encounter [facility] Evaluation note Note Date & Type Note Facility Evaluation note Diagnosis Type 2 diabetes mellitus with stage 3a chronic kidney disease, without long-term current use of insulin (HCC) (CMS/HCC) documented in this encounter [facility] Summary Purpose Family History No Family History Records FoundNo Family History Records FoundNo Family History Records Found Advance Directives No Advanced Directives Records FoundNo Advanced Directives Records FoundNo Advanced Directives Records Found Hospital Course Note MR#: [id number] [facility] Pt. Name: Shabana Stallworth Admitted: [...] section and content) DATE CREATED AUTHOR 07/07/[address] [facility] DATE CREATED AUTHOR AUTHOR'S ORGANIZ ATION 08/20/2022 [facility] DATE CREATED AUTHOR AUTHOR'S ORGANIZ ATION 03/16/2024 [facility] dical Specialists EPIC Care Teams (unrecognized sec tion and content) Residential Life Director Relationship Specialty Start Date End Date Colt Boggs MD [address] [place] [address] PCP - General Family Medicine 10/16/22 Colt Boggs MD [address] [place] [address] PCP - [facility] R[facility]y [facility] 07/14/23 Residential Life Director Relationship Specialty Start Date End Date Colt Boggs MD [address] [place] [address] PCP - General Family Medicine 10/16/22 Colt Boggs MD [address] [place] [address] PCP - [facility]iri Ramey [facility] 07/14/23 Residential Life Director Relationship Specialty Start Date End Date oClt Boggs MD [address] [place] [address] PCP - General Family Medicine 10/16/22 Colt Boggs MD [address] [place] [address] (Fax) PCP - NOMMiri Ramey [facility] 07/14/23 Residential Life Director Relationship Specialty Start Date End Date Colt Boggs MD (Fax) PCP - General Family Medicine 10/16/22 Colt Boggs MD [address] [place] [address] (Fax) PCP - NOMS Tanvir [facility] 07/14/23 Residential Life Director Relationship Specialty Start Date End Date Colt Boggs MD (Fax) PCP - General Family Medicine 10/16/22 Colt Boggs MD [address] [place] [address] (Fax) PCP - [facility]OM[facility] Tanvir [facility] 07/14/23 Residential Life Director Relationship Specialty Start Date End Date Colt Boggs MD (Fax) PCP - General Family Medicine 10/16/22 Colt Boggs MD [address] [place] [address] (Fax) PCP - [facility] Tanvir [facility] 07/14/23 Residential Life Director Relationship Specialty Start Date End Date Colt Boggs MD [address] [place] [id number] PCP - General Family Medicine 10/16/22 Residential Life Director Relationship Specialty Start Date End Date Colt Boggs MD [address] [place] [address] PCP - General Family Medicine 10/16/22 Residential Life Director Relationship Specialty Start Date End Date Colt Boggs MD [address] [place] [address] PCP - General Family Medicine 10/16/22 Colt Boggs MD [address] [place] [address] PCP - [facility] 07/14/23 Reason for Visit (unrecogniz ed section and content) Reason Comments Hypothyroidism Reason Comments Hypertension Hyperlipidemia Diabetes Reason Comments Annual Exam Reason Comments Med Refill FOR RECORDS PERTAINING TO PATIENTS WHO ARE [...] BE BASED ON THE PRIMARY CLINICAL RECORDS. [facility]. provides no warranty or guarantee of the accuracy or completeness of information in this document.
[2024-07-03 12:09] LABS: Estimated Average Glucose 212 mg/dL
== END 2024-07-03 11:46 | disposition home or self-care (01) ==
LOC: LAB 11:46
PROVIDERS: PCP Family Medicine; Visit Provider Family Medicine
DX: E11.22 Type 2 diabetes mellitus with diabetic chronic kidney disease (principal); N18.31 Chronic kidney disease, stage 3a
CPT/HCPCS: 36415; 83036

== ENCOUNTER 2024-09-21 10:16 | Outpatient (OUT) | payer MEDICAID, SELFPAY ==
[2024-09-21 10:58] LABS: Estimated Average Glucose 272 mg/dL; Glycohemoglobin A1C 11.1 % (4.5-6.2)
[2024-09-21 11:13] LABS: Alanine Aminotransferase 49 U/L (14-59); Albumin Globulin Ratio 0.9; Albumin Level 3.8 g/dL (3.4-5.0); Alkaline Phosphatase 66 U/L (46-116); Anion Gap 14.1; Aspartate Amino Transferase 30 U/L (15-37); BUN Creatinine Ratio 15.7; Bilirubin Total 0.5 mg/dL (0.2-1.0); Calcium 9.3 mg/dL (8.5-10.1); Carbon Dioxide 26.7 mmol/L (21.0-32.0); Chloride 100 mmol/L (98-107); Chol HDL Ratio 3.5; Cholesterol 159 mg/dL (<=200); Estimated GFR (African America >60 (>=60 mL/min/1.73m^2); Estimated GFR (Non-African Ame >60 (>=60 mL/min/1.73m^2); Glucose 242 mg/dL (74-106); HDL Cholesterol 46 mg/dL (40-60); LDL Cholesterol Calculated 95.6 mg/dL; Potassium 3.8 mmol/L (3.5-5.1); Sodium 137 mmol/L (136-145); Total Protein 7.8 g/dL (6.4-8.2); Triglycerides 87 mg/dL (<=150); VLDL CHOLESTEROL 17.4 mg/dL
== END 2024-09-21 10:17 | disposition home or self-care (01) ==
LOC: LAB 10:18
PROVIDERS: PCP Family Medicine; Visit Provider Family Medicine
DX: I12.9 Hypertensive chronic kidney disease with stage 1 through stage 4 chronic kidney disease, or unspecified chronic kidney disease (principal); N18.31 Chronic kidney disease, stage 3a; E11.22 Type 2 diabetes mellitus with diabetic chronic kidney disease; E78.2 Mixed hyperlipidemia
CPT/HCPCS: 36415; 80053; 80061; 83036

== ENCOUNTER 2025-01-07 08:23 | Outpatient (OUT) | payer MEDICAID, SELFPAY ==
--- OUTSIDE RECORDS SUMMARY | 2025-01-07 08:26 | XMS_ITS | Encounter Summary ---
Author Organization [facility] Address [address] [place] [address] Care Team Providers Care Child Development Teacher Name Role Phone Colt Roland MD Primary Care Provider + [phone] Colt Roland MD Unavailable [phone] Reason for Visit * Reason Onset Date Comments Lab Orders 12/28/2024 Encounter Details Date Type Department Care Team (Late st Contact Info) Description 12/28/2024 Telephone [facility] [place] [facility] Medicine [address] [place] [address] [address] [place] [id number] Susie Rizvi, MA Lab Orders Social History Tobacco Use Types Packs/Day Years Used Date Smoking Tobacco: Never Passive Smoke Exposure: Never Smokeless Tobacco: Never Alcohol Use Standard Drinks/Week Comments Never 0 (1 standard drink = 0.6 oz pur e alcohol) B1300 Health Literacy Answer Date Recor ded How often do you need to hav e someone help you when you read instructions, pamphlets, or other written material from your doctor or pharmacy? Never 10/04/2024 Humiliation, Afraid, Rape, and Kick questionnair e Answer Date Recorded Within the last year, have y ou been afraid of your partner or ex-partner? No 10/04/2024 Within the last year, have y ou been humiliated or emotionally abused in other ways by your partner or ex-partner? No Within the last year, have y ou been kicked, hit, slapped, or otherwise physically hurt by your partner or ex-partner? No 10/04/2024 Within the last year, have y ou been raped or forced to have any kind of sexual activity by your partner or ex-partner? No 10/04/2024 Social Connection and Isolat ion Panel [NHANES] Answer Date Recorded In a typical week, how many times do you talk on the phone with family, friends, or neighbors? Twice a week 10/04/2024 How often do you get togethe r with friends or relatives? Three times a week 10/04/2024 How often do you attend chur ch or catholic services? More than 4 times per year 10/04/2024 Do you belong to any clubs o r organizations such as latter-day groups, unions, fraternal or athletic groups, or school groups? Yes 10/04/2024 How often do you attend meet ings of the clubs or organizations you belong to? More than 4 times per year 10/04/2024 Are you , , di vorced, , never , or living with a partner? 10/04/2024 AUDIT-C Answer Date Recorded Q1: How often do you have a drink containing alcohol? Never 10/04/2024 Q2: How many drinks containi ng alcohol do you have on a typical day when you are drinking? Patient does not drink Q3: How often do you have si x or more drinks on one occasion? Never 10/04/2024 Overall Financial Resource Strain (CARDIA) Answe r Date Recorded How hard is it for you to pa y for the very basics like food, housing, medical care, and heating? Patient declined 10/04/2024 PHQ-2 Answer Date Recorded Patient Health Questionnaire-2 Score 0 10/05/2024 [facility] Questionnaire Answer Date Recorded Do you feel stress - tense, restless, nervous, or anxious, or unable to sleep at night because your mind is troubled all the time - these days? Not at all 10/04/2024 Exercise Vital Sign Answer Date Recorde d On average, how many days pe r week do you engage in moderate to strenuous exercise (like a brisk walk)? 0 days Minutes of Exercise per Session Not on file 10/04/2024 Hunger Vital Sign Answer Date Recorded Within the past 12 months, y ou worried that your food would run out before you got the money to buy more. Patient declined Within the past 12 months, t he food you bought just didn't last and you didn't have money to get more. Patient declined PRAPARE - Transportation Answer Date Re corded In the past 12 months, has l ack of transportation kept you from medical appointments or from getting medications? No 09/13 In the past 12 months, has l ack of transportation kept you from meetings, work, or from getting things needed for daily living? No 10/04/2024 Housing Stability Vital Sign Answer Santino e Recorded In the last 12 months, was t here a time when you were not able to pay the mortgage or rent on time? Patient refused 01/02/20 In the last 12 months, how many places have you lived? 1 01/01/2023 In the last 12 months, was t here a time when you did not have a steady place to sleep or slept in a custodial (including now)? No 01/01/2023 Housing Stability Vital Sign Answer Santino e Recorded In the last 12 months, was t here a time when you were not able to pay the mortgage or rent on time? Patient declined 10/05/19 Number of Times Moved in the Last Year Not on fi le 10/04/2024 At any time in the past 12 m [facility], were you homeless or living in a custodial (including now)? No 10/04/2024 Education Answer Date Recorded What is the highest level of school you have completed or the highest degree you have received? 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 There were no thyroid labs ordered for her. I called and she asked if I could send them to [facility] and I did. She will not be able to get them done tomorrow so she cancelled and will reschedule, * Telephone Encounter - Susie Rizvi MA - 12/28/2024 1:22 PM EDT Pt needs to get her thyroid labs done by Friday in order to keep her OV documented in this encounter Plan of Treatment Upcoming Encounters Date Type Department Care Team (Late st Contact Info) Description 01/10/2025 10:00 AM EDT Office Visit [facility] [address] [place] [place] [phone] Colt Roland MD [address] [place] [address] documented as of this encounter Visit Diagnoses Not on filedocumented in this encounter Care Teams Child Development Teacher Relationship Specialty Start Date End Date Colt Roland MD PCP - General Family Medicine 10/16/22 Colt Roland MD [address] [place] [address] PCP - JAN Ramey GRINDER SET UP OPERATOR JIG 07/14/23 documented as of this encounter
--- OUTSIDE RECORDS SUMMARY | 2025-01-07 08:26 | XMS_ITS | Encounter Summary ---
Author Organization [facility] Address [address] [place] [address] Care Team Providers Care Software Applications Engineer Name Role Phone Colt Roland MD Primary Care Provider + [phone] Colt Roland MD Unavailable [phone] Encounter Details Date Type Department Care Team (Late st Contact Info) Description 12/28/2024 Orders Only [facility] [facility] Family [facility] 112 [facility] 100 [place] [address] Susie Rizvi, LIDIA Acquired hypothyroidism ; Bharat's disease ; Graves disease ; Chronic fatigue Social History Tobacco Use Types Packs/Day Years [...] often do you attend chur ch or amish services? More than 4 times per year [...] Recorded Patient Health Questionnaire-2 Score 0 10/05/2024 [facility] - Occupational Stress Questionnaire Answer Date [...] or rent on time? Patient refused 01/02/20 23 In the last 12 months, how many places have you lived? 1 01/01/2023 In the last 12 months, was t here a time when you did not have a steady place to sleep or slept in a detention (including now)? No 01/01/2023 Housing Stability Vital Sign Answer Santino e Recorded In the last 12 months, was t here a time when you were not able to pay the mortgage or rent on time? Patient declined 10/05/19 Number of Times Moved in the Last Year Not on fi le 10/04/2024 At any time in the past 12 m [facility], were you homeless or living in a detention (including now)? No 10/04/2024 Education Answer Date [...] on file documented as of this encounter Plan of Treatment Upcoming Encounters Date Type Department Care Team (Late st Contact Info) Description 01/10/2025 10:00 AM EDT Office Visit [facility] 112 [facility] [address] [place] [address] Colt Roland MD 112 [facility] 100 [place] [address] Scheduled Orders Name Type Priority Associated Diagnoses Orde r Schedule T3, free Lab Routine Acquired hypothyroidism Bharat's disease Graves disease Chronic fatigue Expected: 12/28/2024 (Approximate), Expires: 12/28/2025 T4, free Lab Routine Acquired hypothyroidism Bharat's disease Graves disease Chronic fatigue Expected: 12/28/2024 (Approximate), Expires: 12/28/2025 TSH Lab Routine Acquired hypothyroidism Bharat's disease Graves disease Chronic fatigue Expected: 12/28/2024 (Approximate), Expires: 12/28/2025 documented as of this encounter Visit Diagnoses Diagnosis Acquired hypothyroidism Unspecified hypothyroidism Bharat's disease Chronic lymphocytic thyroiditis Graves disease Toxic diffuse goiter without mention of thyrotoxic crisis or storm Chronic fatigue Other malaise and fatigue documented in this encounter Care Teams Software Applications Engineer Relationship Specialty Start Date End Date Colt Roland MD PCP - General Family Medicine 10/16/22 Colt Roland MD [address] [place] [address] PCP - [facility] LABOY 07/14/23 documented as of this encounter
--- OUTSIDE RECORDS SUMMARY | 2025-01-07 08:27 | XMS_ITS | Encounter Summary ---
Author Organization [facility] Address [address] [place] [address] Care Team Providers Care Employment Instructional Associate Name Role Phone Colt Roland MD Primary Care Provider [phone] Colt Roland MD Unavailable [phone] Reason for Visit * Reason Comments Med Refill Encounter Details Date Type Department Care Team (Late st Contact Info) Description 01/06/2025 Refill [facility] Family Medicine [address] [place] [address] Colt Roland MD 112 [facility] [address] [place] [address] Benign essential hypertension ; Type 2 diabetes mellitus with stage 2 chronic kidney disease, without long-term current use of insulin (HCC); Type 2 diabetes mellitus with stage 3a chronic kidney disease, without long-term current use of insulin (HCC) Social History Tobacco Use Types Packs/Day Years [...] often do you attend chur ch or oriental orthodox services? More than 4 times per year 10/04/2024 Do you belong to any clubs o r organizations such as spiritism groups, unions, fraternal or athletic groups, or [...] Recorded Patient Health Questionnaire-2 Score 0 10/05/2024 [facility] - Occupational Stress [...] place to sleep or slept in a prison (including now)? No 01/01/2023 Housing Stability Vital Sign Answer Santino e Recorded In the last 12 months, was t here a time when you were not able to pay the mortgage or rent on time? Patient declined 10/05/19 Number of Times Moved in the Last Year Not on fi le 10/04/2024 At any time in the past 12 m [facility], were you homeless or living in a prison (including now)? No 10/04/2024 Education Answer Date [...] Visit [facility] 112 [facility] 100 [place] [address] Colt Roland MD 112 [facility] 100 [place] [address] documented as of this encounter Visit Diagnoses Diagnosis Benign essential hypertension Essential hypertension, benign Type 2 diabetes mellitus with stage 2 chronic kidney disease, without long-term current use of insulin (HCC) Type 2 diabetes mellitus with stage 3a chronic kidney disease, without long-term current use of insulin (HCC) documented in this encounter Care Teams Employment Instructional Associate Relationship Specialty Start Date End Date Colt Roland MD PCP - General Family Medicine 10/16/22 Colt Roland MD 112 [facility] [address] [place] [address] PCP - [facility] LABOY 07/14/23 documented as of this encounter
--- OUTSIDE RECORDS SUMMARY | 2025-01-07 08:27 | XMS_ITS | Clinical Summary ---
Author Organization [facility] Address [id number] [address] [place] [address] Care Team Providers Care Elementary Educator Name Role Phone Colt Roland MD Primary Care Provider + [phone] Allergies Active Allergy Reactions Criticality Noted Date Comments Nalbuphine NUBAIN Medications losartan (COZAAR) 100 mg tablet Take 100 mg by mouth daily. Active metFORMIN (GLUCOPHAGE) 1000 mg tablet Take 1,000 mg by mouth 2 (two) times a day with meals. Active metoprolol tartrate (LOPRESSOR) 50 mg tablet Take 50 mg by mouth 2 (two) times a day. Active potassium 99 mg tablet Take 99 mg by mouth daily. Active aspirin (ASPIR-81 ORAL) Take 81 mg by mouth daily. Active BIOTIN ORAL Take 1,000 mg by mouth daily. Active levothyroxine (SYNTHROID, LEVOTHROID) 50 MCG tablet Take 50 mcg by mouth daily. Active TRULICITY 1.5 mg/0.5 mL pen injector INJECT 1 (ONE) pen SUBCUTANEOUSLY EVERY week 5 9 Active Social History Tobacco Use Types Packs/Day Years Used Date Smoking Tobacco: Never Smokeless Tobacco: Never Alcohol Use Standard Drinks/Week Comments No 0 (1 standard drink = 0.6 oz pur e alcohol) AUDIT-C Answer Date Recorded Frequency of Alcohol Consumption Never 07/13/2018 Average Number of Drinks Not on file 019 Frequency of Binge Drinking Not on file 04/2018 Childcare Answer Date Recorded Childcare Unknown 09/22/2018 Employment Answer Date Recorded Employment Unknown 09/22/2018 Purpose - Life Answer Date Recorded Purpose and direction in life Unknown Comments No Sex and Gender Information Value Date Recorded Sex Assigned at Not on file Legal Sex Female 6:34 PM EDT Gender Identity Not on file Sexual Orientation Not on file Last Filed Vital Signs Vital Sign Reading Time Taken Comments Blood Pressure 164/100 07/20/2018 9:50 AM EDT out of one of her BP meds Pulse 80 06/13/2018 11:25 AM EST Temperature 36.6 C (97.9 F) 06/13/2018 11:25 AM EST Respiratory Rate 16 06/13/2018 11:2 5 AM EST Oxygen Saturation - - Inhaled Oxygen Concentration - - Weight 91.6 kg (202 lb) 07/20/2018 9:50 AM EDT Height 168.9 cm (5' 6.5 ) 07/20/2018 9: 50 AM EDT Body Mass Index 32.12 07/20/2018 9:50 AM EDT Plan of Treatment Health Maintenance Due Date Last Done Comments Depression Screening 1974 Tobacco Screening 1974 Adult BMI Screening 01/26/1980 DTaP,Tdap and Td Vaccines (1 - Tdap) 1981 Pap Smear 1983 Zoster (Shingles) Vaccine (1 of 2) 01/26/2012 Influenza Vaccine 12/13/2024 01/08/2017 Medical Devices Not on file [place] [address] [place] [address] MEDICAID Care Teams Elementary Educator Relationship Specialty Start Date End Date Colt Roland MD PCP - General Family Medicine 06/04/18
--- OUTSIDE RECORDS SUMMARY | 2025-01-07 08:27 | XMS_ITS | Encounter Summary ---
Author Organization [facility] Address [address] [place] [address] Care Team Providers Care Stitch Cleaner Name Role Phone Colt Roland MD Primary Care Provider [phone] Colt Roland MD Unavailable [phone] Reason for Visit * Reason Comments Med Refill Encounter Details Date Type Department Care Team (Late st Contact Info) Description 12/23/2023 Refill [facility] [place] [facility] Family Medicine [address] [place] [address] Colt Roland MD 112 [facility] [address] [place] [address] Benign essential hypertension ; Type 2 diabetes mellitus with stage 3a chronic kidney disease, without long-term current use of insulin (HCC) Social History Tobacco Use Types Packs/Day Years Used Date Smoking Tobacco: Never Passive Smoke Exposure: Never Smokeless Tobacco: Never Alcohol Use Standard Drinks/Week Comments Never 0 (1 standard drink = 0.6 oz pur e alcohol) Humiliation, Afraid, Rape, and Kick questionnair e Answer Date Recorded Within the last year, have y ou been afraid of your partner or ex-partner? No 01/01/2023 Within the last year, have y ou been humiliated or emotionally abused in other ways by your partner or ex-partner? No Within the last year, have y ou been kicked, hit, slapped, or otherwise physically hurt by your partner or ex-partner? No 01/01/2023 Within the last year, have y ou been raped or forced to have any kind of sexual activity by your partner or ex-partner? No 01/01/2023 Social Connection and Isolat ion Panel [NHANES] Answer Date Recorded In a typical week, how many times do you talk on the phone with family, friends, or neighbors? Once a week 01/01/2023 How often do you get togethe r with friends or relatives? More than three times a week 01/01/2023 How often do you attend chur or latter-day services? More than 4 times per year 01/01/2023 Do you belong to any clubs o r organizations such as jainism groups, unions, fraternal or athletic groups, or school groups? Yes 01/01/2023 How often do you attend meet ings of the clubs or organizations you belong to? More than 4 times per year 01/01/2023 Are you , , di vorced, , never , or living with a partner? 01/01/2023 AUDIT-C Answer Date Recorded Q1: How often do you have a drink containing alcohol? Never 01/01/2023 Q2: How many drinks containi ng alcohol do you have on a typical day when you are drinking? Patient does not drink Q3: How often do you have si x or more drinks on one occasion? Never 01/01/2023 Overall Financial Resource Strain (CARDIA) Answe r Date Recorded How hard is it for you to pa y for the very basics like food, housing, medical care, and heating? Not very hard 01/01/2023 PHQ-2 Answer Date Recorded Patient Health Questionnaire-2 Score 0 01/09/2023 [facility] - Occupational Stress Questionnaire Answer Date Recorded Do you feel stress - tense, restless, nervous, or anxious, or unable to sleep at night because your mind is troubled all the time - these days? Not at all 01/01/2023 Exercise Vital Sign Answer Date Recorde d On average, how many days pe r week do you engage in moderate to strenuous exercise (like a brisk walk)? 0 days Minutes of Exercise per Session Not on file 01/01/2023 Hunger Vital Sign Answer Date Recorded Within the past 12 months, y ou worried that your food would run out before you got the money to buy more. Never true 01/02/20 Within the past 12 months, t he food you bought just didn't last and you didn't have money to get more. Never true 01/01/2023 PRAPARE - Transportation Answer Date Re corded In the past 12 months, has l ack of transportation kept you from medical appointments or from getting medications? No 12/14 In the past 12 months, has l ack of transportation kept you from meetings, work, or from getting things needed for daily living? No 01/01/2023 Housing Stability Vital Sign Answer [...] place to sleep or slept in a usp (including now)? No 01/01/2023 Education Answer Date Recorded What is the [...] 10:00 AM EDT Office Visit [facility] [facility] Family Medicine 112 [facility] 100 [place] [address] Colt Roland MD 112 [facility] 100 [place] [address] (Fax) documented as of this encounter Visit Diagnoses Diagnosis Benign essential hypertension Essential hypertension, benign Type 2 diabetes mellitus with stage 3a chronic kidney disease, without long-term current use of insulin (HCC) documented in this encounter Care Teams Stitch Cleaner Relationship Specialty Start Date End Date Colt Roland MD PCP - General Family Medicine 10/16/22 Colt Roland MD [address] [place] [address] PCP - JAN Ramey WAXER FLOOR 07/14/23 documented as of this encounter
--- OUTSIDE RECORDS SUMMARY | 2025-01-07 08:27 | XMS_ITS | Encounter Summary ---
Author Organization [facility] Address [address] [place] [address] Care Team Providers Care Enforcement Manager Name Role Phone Colt Roland MD Primary Care Provider [phone] Colt Roland MD Unavailable [phone] Encounter Details Date Type Department Care Team (Late st Contact Info) Description 12/09/2022 Orders Only [facility] [address] [facility] [place] [address] Colt Roland MD [address] [place] [address] (Fax) Bharat's disease (Primary Dx); Acquired hypothyroidism ; Chronic fatigue syndrome Social History Tobacco Use Types Packs/Day Years Used Date Smoking Tobacco: Never Passive Smoke Exposure: Never Smokeless Tobacco: Never Alcohol Use Standard Drinks/Week Comments Never 0 (1 standard drink = 0.6 oz pur e alcohol) Humiliation, Afraid, Rape, and Kick questionnair e Answer Date Recorded Within the last year, have y ou been afraid of your partner or ex-partner? No 11/12/2022 Within the last year, have y ou been humiliated or emotionally abused in other ways by your partner or ex-partner? No Within the last year, have y ou been kicked, hit, slapped, or otherwise physically hurt by your partner or ex-partner? No 11/12/2022 Within the last year, have y ou been raped or forced to have any kind of sexual activity by your partner or ex-partner? No 11/12/2022 Social Connection and Isolat ion Panel [NHANES] Answer Date Recorded In a typical week, how many times do you talk on the phone with family, friends, or neighbors? Once a week 11/12/2022 How often do you get togethe r with friends or relatives? Three times a week 11/12/2022 How often do you attend chur ch or anabaptism services? More than 4 times per year 11/12/2022 Do you belong to any clubs o r organizations such as christian groups, unions, fraternal or athletic groups, or school groups? Yes 11/12/2022 How often do you attend meet ings of the clubs or organizations you belong to? More than 4 times per year 11/12/2022 Are you , , di vorced, , never , or living with a partner? 11/12/2022 AUDIT-C Answer Date Recorded Q1: How often do you have a drink containing alcohol? Never 11/12/2022 Q2: How many drinks containi ng alcohol do you have on a typical day when you are drinking? Patient does not drink Q3: How often do you have si x or more drinks on one occasion? Never 11/12/2022 Overall Financial Resource Strain (CARDIA) Answe r Date Recorded How hard is it for you to pa y for the very basics like food, housing, medical care, and heating? Patient declined 11/12/2022 PHQ-2 Answer Date Recorded Patient Health Questionnaire-2 Score 0 12/04/2022 [facility] - Occupational Stress Questionnaire Answer Date Recorded Do you feel stress - tense, restless, nervous, or anxious, or unable to sleep at night because your mind is troubled all the time - these days? Not at all 11/12/2022 Exercise Vital Sign Answer Date Recorde d On average, how many days pe r week do you engage in moderate to strenuous exercise (like a brisk walk)? 0 days Minutes of Exercise per Session Not on file 11/12/2022 Hunger Vital Sign Answer Date Recorded Within the past 12 months, y ou worried that your food would run out before you got the money to buy more. Patient declined Within the past 12 months, t he food you bought just didn't last and you didn't have money to get more. Patient declined 04/2022 PRAPARE - Transportation Answer Date Re corded In the past 12 months, has l ack of transportation kept you from medical appointments or from getting medications? No 04/2022 In the past 12 months, has l ack of transportation kept you from meetings, work, or from getting things needed for daily living? No 11/12/2022 Housing Stability Vital Sign Answer Santino e Recorded In the last 12 months, was t here a time when you were not able to pay the mortgage or rent on time? Patient refused 11/13/19 Number of Places Lived in the Last Year Not on f ile 11/12/2022 In the last 12 months, was t here a time when you did not have a steady place to sleep or slept in a group home (including now)? No 11/12/2022 Education Answer Date Recorded What is the [...] file Not on file Not on file COVID-19 Exposure Response Date Recorded In the last 10 days, have yo u been in contact with someone who was confirmed or suspected to have Coronavirus/COVID-19? No / Unsure 12/04/2022 10:14 AM EDT documented as of this encounter Plan of Treatment Upcoming Encounters Date Type Department Care Team (Late st Contact Info) Description 01/10/2025 10:00 AM EDT Office Visit [facility] [address] [facility] [address] [place] [address] Colt Roland MD 112 [facility] 100 [place] [address] documented as of this encounter Visit Diagnoses Diagnosis Bharat's disease- Primary Chronic lymphocytic thyroiditis Acquired hypothyroidism Unspecified hypothyroidism Chronic fatigue syndrome documented in this encounter Care Teams Enforcement Manager Relationship Specialty Start Date End Date Colt Roland MD PCP - General Family Medicine 10/16/22 Colt Roland MD [address] [place] [id number] PCP - [facility] Tanvir LABOY 07/14/23 documented as of this encounter
--- OUTSIDE RECORDS SUMMARY | 2025-01-07 08:27 | XMS_ITS | Encounter Summary ---
Author Organization [facility] Address [address] [place] [address] Care Team Providers Care Bobtail Driver Name Role Phone Colt Roland MD Primary Care Provider [phone] Colt Roland MD Unavailable [phone] Reason for Visit * Reason Onset Date Comments Care Coordination 01/05/2025 Encounter Details Date Type Department Care Team (Late st Contact Info) Description 01/05/2025 Telephone [facility] [facility] [address] [place] [address] [address] [place] [id number] Susie Rizvi, LIDIA Care Coordination Social History Tobacco Use Types Packs/Day Years [...] often do you attend chur ch or yazdanism services? More than 4 times per year 10/04/2024 Do you belong to any clubs o r organizations such as taoist groups, unions, fraternal or athletic groups, or [...] Recorded Patient Health Questionnaire-2 Score 0 10/05/2024 [facility] Questionnaire Answer Date [...] place to sleep or slept in a fpc (including now)? No 01/01/2023 Housing Stability Vital Sign Answer Santino e Recorded In the last 12 months, was t here a time when you were not able to pay the mortgage or rent on time? Patient declined 10/05/19 Number of Times Moved in the Last Year Not on fi le 10/04/2024 At any time in the past 12 m [facility], were you homeless or living in a fpc (including now)? No 10/04/2024 Education Answer Date [...] * Telephone Encounter - Samantha Devi - 01/06/2025 1:12 PM EDT Patient getting labs done tomorrow am * Telephone Encounter - Susie Rizvi MA - 01/05/2025 11:09 AM EDT Pt has not gone and gotten the THY or DM labs you had talked to her about last week. They would need done by Friday documented in this encounter Plan of Treatment Upcoming Encounters Date Type Department Care Team (Late st Contact Info) Description 01/10/2025 10:00 AM EDT Office Visit [facility] [address] [place] [place] [address] Colt Roland MD [address] [place] [address] documented as of this encounter Visit Diagnoses Not on filedocumented in this encounter Care Teams Bobtail Driver Relationship Specialty Start Date End Date Colt Roland MD PCP - General Family Medicine 10/16/22 Colt Roland MD [address] [place] [address] PCP - JAN Ramey TOWER OBSERVER 07/14/23 documented as of this encounter
--- OUTSIDE RECORDS SUMMARY | 2025-01-07 08:27 | XMS_ITS | Encounter Summary ---
Author Organization [facility] Address [address] [place] [address] Care Team Providers Care Office Professional Name Role Phone Colt Roland MD Primary Care Provider [phone] Colt Roland MD Unavailable [phone] Encounter Details Date Type Department Care Team (Late st Contact Info) Description 01/15/2024 Orders Only [facility] [address] [place] [address] Colt Roland MD [address] [facility] [address] [place] [address] (Fax) Social History Tobacco Use Types Packs/Day Years [...] 01/01/2023 How often do you attend chur ch or sikhism services? More than 4 times per year 01/01/2023 Do you belong to any clubs o r organizations such as quaker groups, unions, fraternal or athletic groups, or [...] Recorded Patient Health Questionnaire-2 Score 0 01/09/2023 [facility] - Occupational Stress [...] money to buy more. Never true 01/02/20 23 Within the past 12 months, t he [...] place to sleep or slept in a [place] [facility] [place] (including now)? No 01/01/2023 Education Answer Date [...] Visit [facility] [address] [facility] [address] [place] [address] Colt Roland MD 112 [facility] 100 [place] [address] (Fax) documented as of this encounter Visit Diagnoses Not on filedocumented in this encounter Care Teams Office Professional Relationship Specialty Start Date End Date Colt Roland MD (Fax) PCP - General Family Medicine 10/16/22 Colt Roland MD 112 [facility] 100 [place] [address] (Fax) PCP - [facility] Tanvir TANDEM MILL STICKER 07/14/23 documented as of this encounter
--- OUTSIDE RECORDS SUMMARY | 2025-01-07 08:27 | XMS_ITS | Encounter Summary ---
Author Organization [facility] Address [address] [place] [address] Care Team Providers Care Tare Weigher Name Role Phone Colt Roland MD Primary Care Provider [phone] Colt Roland MD Unavailable [phone] Reason for Visit * Reason Comments Med Refill Encounter Details Date Type Department Care Team (Late st Contact Info) Description 12/30/2022 Refill [facility] [address] [facility] [place] [address] Colt Roland MD [address] [place] [address] Hypothyroidism, unspecified Social History Tobacco Use Types Packs/Day Years [...] often do you attend chur ch or quaker services? More than 4 times per year [...] Recorded Patient Health Questionnaire-2 Score 0 12/04/2022 [facility] - Occupational Stress Questionnaire Answer Date [...] place to sleep or slept in a senior living (including now)? No 01/01/2023 Education Answer Date [...] suspected to have Coronavirus/COVID-19? No / Unsure 01/01/2023 9:23 AM EDT documented as of this encounter Functional Status * Audit-C Score Answer Date of Assessment Author 0 01/01/2023 9:23 AM EDT Yissel Devi * Q1: How often do you have a drink containing alcohol? Answer Date of Assessment Author Never 01/01/2023 9:23 AM EDT Yissel Devi * Q2: How many drinks containing alcohol do you have on a typical day when you are drinking? Answer Date of Assessment Author Patient does not drink 01/01/2023 9:23 AM EDT Samantha Marinelli * Q3: How often do you have six or more drinks on one occasion? Answer Date of Assessment Author Never 01/01/2023 9:23 AM EDT Yissel Devi documented as of this encounter Plan of Treatment Upcoming Encounters Date Type Department Care Team (Late st Contact Info) Description 01/10/2025 10:00 AM EDT Office Visit [facility] [address] [facility] [address] [place] [address] Colt Roland MD [address] [facility] [address] [place] [address] documented as of this encounter Visit Diagnoses Diagnosis Hypothyroidism, unspecified documented in this encounter Care Teams Tare Weigher Relationship Specialty Start Date End Date Colt Roland MD PCP - General Family Medicine 10/16/22 Colt Roland MD [address] [facility] [address] [place] [address] PCP - [facility] Tanvir ASSEMBLY MEMBER 07/14/23 documented as of this encounter
--- OUTSIDE RECORDS SUMMARY | 2025-01-07 08:27 | XMS_ITS | Encounter Summary ---
Author Organization [facility] Address [address] [place] [address] Care Team Providers Care Screw Machine Tool Setter Name Role Phone Colt Roland MD Primary Care Provider [phone] Colt Roland MD Unavailable [phone] Reason for Visit * Reason Comments Med Refill Encounter Details Date Type Department Care Team (Late st Contact Info) Description 12/31/2023 Refill [facility] [facility] [address] [place] [address] Colt Roland MD 112 [facility] [address] [place] [address] Benign essential hypertension ; Type 2 diabetes [...] How often do you attend chur or hoahaoism services? More than 4 times per year 01/01/2023 Do you belong to any clubs o r organizations such as taoism groups, unions, fraternal or athletic groups, or [...] Recorded Patient Health Questionnaire-2 Score 0 01/09/2023 [facility] - Occupational Stress Questionnaire Answer Date [...] encounter Miscellaneous Notes * Telephone Encounter - Colt Roland MD - 01/15/2024 10:01 AM EDT I did review and her last off this visit was in November and that was a wellness visit not a problem visit. We did deny the refill request so I think that was appropriate. In the same breath I do not want her to be out so I went ahead and sent in a supply that should last for 90 days. * Telephone Encounter - Susie DmitriLIDIA - 01/13/2024 1:54 PM EDT Pt called and stated she has been trying to fill her medication and [facility] told her they could not until she contacted office and got new scripts sent because they were declined. She states she has a thy OV upcoming and just had labs but she was just seen for her DM HTN HLD documented in this encounter Plan of Treatment Upcoming Encounters Date Type Department Care Team (Late st Contact Info) Description 01/10/2025 10:00 AM EDT Office Visit [facility] [address] [address] Colt Roland MD [address] [address] documented as of this encounter Visit Diagnoses Diagnosis Benign essential hypertension Essential hypertension, benign Type 2 diabetes mellitus with stage 3a chronic kidney disease, without long-term current use of insulin (HCC) documented in this encounter Care Teams Screw Machine Tool Setter Relationship Specialty Start Date End Date Colt Roland MD PCP - General Family Medicine 10/16/22 Colt Roland MD [address] [address] PCP - JAN LABOY 07/14/23 documented as of this encounter
--- OUTSIDE RECORDS SUMMARY | 2025-01-07 08:27 | XMS_ITS | Clinical Summary ---
Author Organization [facility] Healthcare Address [address] [place] [address] Care Team Providers Care Brand Recorder Name Role Phone Colt Roland MD Primary Care Provider [phone] Colt Roland MD Unavailable [phone] Allergies Active Allergy Reactions Criticality Noted Date Comments Rosuvastatin Other Low 06/18/2023 Bad muscle and Joint Pain Nalbuphine GI intolerance Low 11/05/2022 Semaglutide Medium 11/05/2022 Other Reaction(s): nausea and vomiting, hair fell out Medications aspirin 81 MG EC tablet Take 81 mg by mouth 1 (one) time each day at the same time. Active biotin 1 MG capsule Take 1 capsule by mouth 1 (one) time each day at the same time. Active Potassium 99 MG tablet Take 99 mg by mouth 1 (one) time each day at the same time. Active levothyroxine (Synthroid, Levoxyl) 75 MCG tabletIndications: Acquired hypothyroidism Take 1 tablet (75 mcg) by mouth in the morning. Take before meals. 30 tablet 11 02/04/20 24 025 Active empagliflozin (Jardiance) 25 MGIndications:Type 2 diabetes mellitus with stage 3a chronic kidney disease, without long-term current use of insulin (HCC) Take 1 tablet (25 mg) by mouth Daily 30 tablet 2 07/07/19 25 Active Additional Information Patient not taking.Reported on 10/05/2024 metFORMIN (Glucophage) 1000 MG tabletIndications: Type 2 diabetes mellitus with stage 2 chronic kidney disease, without long-term current use of insulin (HCC) Take 1 tablet (1,000 mg) by mouth in the morning and 1 tablet (1,000 mg) in the evening. Take with meals. 60 tablet 2 10/06/19 Active losartan (Cozaar) 100 MG tabletIndications: Benign essential hypertension Take 1 tablet (100 mg) by mouth Daily 30 tablet 2 10/06/19 Active metoprolol tartrate (Lopressor) 50 MG tabletIndications: Benign essential hypertension Take 1 tablet (50 mg) by mouth in the morning and 1 tablet (50 mg) before bedtime. 60 tablet 2 10/06/19 Active colestipol (Colestid) 1 g tabletIndications: Postsurgical dumping syndrome Titrate from 1 to 2 tablets twice daily. Take at least 1 hour after or 4 hours before other medications. 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 We will continue this diagnosis until the next time we monitor the lab. If she remains in stage II we will adjust the diagnosis to reflect this. Chronic problem, stable, defining the end organ damage of the nephropathy. I stressed the importance of keeping blood pressure and blood sugar to goal, staying well hydrated, and aerobic exercises as tolerated. Continue to monitor longitudinally. Type 2 diabetes mellitus wit h diabetic chronic kidney disease 11/05/2022 Venous insufficiency 11/05/2022 Resolved Problems Problem Noted Date Diagnosed Date Resolved Date Class 2 severe obesity due t o excess calories with serious comorbidity and body mass index (BMI) of 35.0 to 35.9 in adult 10/22/2023 Chronic fatigue syndrome 11/05/2022 10/ Encounters Date Type Department Care Team Description 01/06/2025 Refill [facility] [address] [facility] 100 [place] [address] Colt Roland MD Benign essential hypertension ; Type 2 diabetes mellitus with stage 2 chronic kidney disease, without long-term current use of insulin (HCC); Type 2 diabetes mellitus with stage 3a chronic kidney disease, without long-term current use of insulin (HCC) 01/05/2025 Telephone [facility] 100 [facility] [address] [facility] [address] [place] [address] Dmitri July, [place] Care Coordination 12/28/2024 Telephone [facility] 100 [facility] [address] [facility] [address] [place] [address] maria antonia July, [place] Lab Orders 12/28/2024 Orders Only [facility] [address] [place] [address] Dmitri July, [place] Acquired hypothyroidism ; Bharat's disease ; Graves disease ; Chronic fatigue 11/16/2024 Telephone [facility] 100 [facility] [address] [facility] [address] [place] [address] Dmitri SusieCULLMAN, [place] 10/13/2024 Orders Only [facility] 100 [facility] [address] [facility] [address] [place] [address] Colt Roland MD from Last 3 Months Immunizations Immunization Administration Dates Next Due Influenza, injectable, quadrivalent, preservativ e free 01/08/2017 Family History Medical History Relation Name Comments Learning disabilities Daughter 2 Peggy No Known Problems Father Diabetes Mother Sherrie Hypertension Mother Sherrie Kidney disease Mother Sherrie Autoimmune disease Sister 1 Thyroid disease Sister 2 Diabetes Sister 3 Janneth Hypertension Sister 3 Janneth Asthma Son 1 Leonid Learning disabilities Son 1 Leonid Learning disabilities Son 2 Leonid Araujo Relation Name Status Comments Daughter 1 Alive x2 Daughter 2 Peggy Father Alive Mother Sherrie Alive Sister 1 Sister 2 Alive Sister 3 Janneth Son 1 Leonid Alive x2 Son 2 Leonid Araujo Social History Tobacco Use Types Packs/Day Years Used Date Smoking Tobacco: Never Passive Smoke Exposure: Never Smokeless Tobacco: Never Tobacco Cessation:Counseling Given: Yes Alcohol Use Standard Drinks/Week Comments Never 0 [...] 10/04/2024 How often do you attend chur or islam services? More than 4 times per year 10/04/2024 Do you belong to any clubs o r organizations such as mu-ism groups, unions, fraternal or athletic groups, or [...] Recorded Patient Health Questionnaire-2 Score 0 10/05/2024 [facility] - Occupational Stress [...] place to sleep or slept in a jail (including now)? No 01/01/2023 Housing Stability Vital Sign Answer Santino e Recorded In the last 12 months, was t here a time when you were not able to pay the mortgage or rent on time? Patient declined 10/05/19 Number of Times Moved in the Last Year Not on fi le 10/04/2024 At any time in the past [address] [facility], were you homeless or living in a jail (including now)? No 10/04/2024 Education Answer Date [...] file Not on file Not on file Last Filed Vital Signs Vital Sign [place] Time Taken Comments Blood Pressure 128/80 07/06/2024 9:01 AM EDT Pulse 78 10/05/2024 10:31 AM EDT Temperature - - Respiratory Rate - - Oxygen Saturation 97% 10/05/2024 10:31 AM EDT Inhaled Oxygen Concentration - - Weight 100 kg (221 lb) 10/05/2024 10:31 AM EDT Height 167.6 cm (5' 6 ) 10/05/2024 10:31 AM EDT Body Mass Index 35.67 10/05/2024 10:31 AM EDT Plan of Treatment Upcoming Encounters Date Type Department Care Team (Late st Contact Info) Description 01/10/2025 10:00 AM EDT Office Visit [facility] [address] [facility] 100 [place] [address] Colt Roland MD 112 [facility] 100 [place] [address] Health Maintenance Due Date Last Done Comments CT Colonography 1962 Colonoscopy 1962 FIT 1962 FOBT 1962 Sigmoidoscopy 1962 Pap Smear 1983 Cervical Cancer Screening 01/26/1992 HPV/Cotest 01/26/1992 Diabetes: Urine Protein Screening 12/07/2024 12/08/2023, 08/14/2020, 06/07/2019, Additional history exists Mammogram 12/21/2024 12/22/2023, 02/26/2019 Diabetes: Hemoglobin A1C 12/22/2024 025, 11/05/2022, 08/13/2022, Additional history exists Influenza Vaccine (#1) 2025 01/08/2017 Postp oned from 12/13/2024 (Patient Refused) Diabetes: Retinopathy Screening 03/23/2026 03/23/2024, 03/23/2024, 04/24/2022, Additional history exists Colorectal Cancer Screening 01/04/2027 FIT-DNA 01/04/2027 01/05/2024 Procedures Procedure Name Priority Date/Time Associated Diagnosis Comments DIABETIC RETINOPATHY SCREENING - OU - BOTH EYES Routine 03/23/2024 5:10 PM EST LAB COLOGUARD COLON CANCER SCREEN Routine 01/05/2024 10:30 AM EDT Encounter for screening for malignant neoplasm of colon BI MAMMOGRAM SCREENING TOMOSYNTHESIS BILATERAL Routine 12/22/2023 8:44 AM EDT Screening mammogram, encounter for POCT MICROALBUMIN Routine 12/08/2023 9:2 1 AM EDT Type 2 diabetes mellitus with stage 3a chronic kidney disease, without long-term current use of insulin (HCC) HEMOGLOBIN A1C Routine 11/05/2022 Type 2 diabetes mellitus with stage 3a chronic kidney disease, without long-term current use of insulin (HCC) from Last 3 Months or Most Recently Relevant to Health Maintenance Results * Diabetic Retinopathy Screening - OU - Both Eyes (03/23/2024 5:10 PM EST) Anatomical Region Laterality Modality Head Other Colt Roland MD OPHTH PHOTOGRAPHY Final Resu lt * Cologuard?? colon cancer screening (01/05/2024 10:30 AM EDT) NONINV COLON CA DNA+OCC BLD SCRN STL-IMP Negative Negative 01/08/2024 9:40 AM EDT [facility] (CLIA #:[id number]) Comment: NEGATIVE TEST RESULT. A negative Cologuard result indicates a low likelihood that a colorectal cancer (CRC) or advanced adenoma (adenomatous polyps with more advanced pre-malignant features) is present. The chance that a person with a negative Cologuard test has a colorectal cancer is less than 1 in 1500 (negative predictive value >99.9%) or has an advanced adenoma is less than 5.3% (negative predictive value 94.7%). These data are based on a prospective cross-sectional study of 10,000 individuals at average risk for colorectal cancer who were screened with both Cologuard and colonoscopy. (Kaylee Mao et al, N Engl J Med 2014;370(14):0497-0367) The normal value (reference range) for this assay is negative. COLOGUARD RE-SCREENING RECOMMENDATION: Periodic colorectal cancer screening is an important part of preventive healthcare for asymptomatic individuals at average risk for colorectal cancer. Following a negative Cologuard result, the [place] Cancer Society and U.S. Multi-Society Task Force screening guidelines recommend a Cologuard re-screening interval of 3 years. References: [place] [employer] Guideline for Colorectal Cancer Screening: https://www.cancer.org/cancer/hwbrt-mandea-pynzen/auoprnnhi-dypdurcri-hgomnzh/ac s-rec ommendations.html.; [place], Mindy RIVERA, Van TurnerK, Colorectal Cancer Screening: Recommendations for Physicians and Patients from the U.S. Multi-Society Task Force on Colorectal Cancer Screening , Am J Gastroenterology 2017; 112:8660-0838. TEST DESCRIPTION: Composite algorithmic analysis of stool DNA-biomarkers with hemoglobin immunoassay. Quantitative values of individual biomarkers are not reportable and are not associated with individual biomarker result reference ranges. Cologuard is intended for colorectal cancer screening of adults of either sex, 45 years or older, who are at average-risk for colorectal cancer (CRC). Cologuard has been approved for use by the U.S. FDA. The performance of Cologuard was established in a cross sectional study of average-risk adults aged 50-84. Cologuard performance in patients ages 45 to 49 years was estimated by sub-group analysis of near-age groups. Colonoscopies performed for a positive result may find as the most clinically significant lesion: colorectal cancer [4.0%], advanced adenoma (including sessile serrated polyps greater than or equal to 1cm diameter) [20%] or non- advanced adenoma [31%]; or no colorectal neoplasia [45%]. These estimates are derived from a prospective cross-sectional screening study of 10,000 individuals at average risk for colorectal cancer who were screened with both Cologuard and colonoscopy. (Kaylee Armenta al, N Engl J Med 2014;370(14):4602-1981.) Cologuard may produce a false negative or false positive result (no colorectal cancer or precancerous polyp present at colonoscopy follow up). A negative Cologuard test result does not guarantee the absence of CRC or advanced adenoma (pre-cancer). The current Cologuard screening interval is every 3 years. ([place] Cancer Society and U.S. Multi-Society Task Force). Cologuard performance data in a 10,000 patient pivotal study using colonoscopy as the reference method can be accessed at the following location: www.[employer]/results. Additional description of the Cologuard test process, warnings and precautions can be found at www.cologuard.Cerebrex. Stool specimen (specimen) 01/05/2024 10:30 AM EDT 01/06/2024 12:37 PM EDT Colt Roland MD LAB MOLECULAR DIAGNOSTICS OR DERABLES Final Result [facility] (CLIA #:[id number]) Charity NunnGinette Ephraim . [place] [id number], * Bilateral screening mammogram with tomosynthesis (12/22/2023 8:44 AM EDT) Anatomical Region Laterality Modality Breast Bilateral Mammography 12/22/2023 8:56 AM EDT Impressions 12/22/2023 9:05 AM EDT Impression: No specific evidence of malignancy seen in either breast. BI-RADS 2 Breast Density: There are scattered areas of fibroglandular density BiRads: BIRADS 2 - Benign Recommended follow-up: Routine Screening Mamm ELECTRONICALLY SIGNED BY: Ray Castillo M.D. Narrative 12/22/2023 9:05 AM EDT Examination: BI MAMMOGRAM SCREENING TOMOSYNTHESIS BILATERAL Clinical [...] would be suggestive of malignancy. Mild scattered benign- appearing calcifications noted bilaterally. Stable benign-appearing nodular density in the upper outer portion of the left breast. Axillary lymph nodes are noted bilaterally. Procedure Note Ray Castillo MD - 12/22/2023 Examination: BI MAMMOGRAM SCREENING TOMOSYNTHESIS BILATERAL Clinical History: screen breast ca Technique: Screening digital mammography study of both breasts wasperformed with 2-D and 3-D tomosynthesis imaging. Study was compared tothe prior exam dated 02/26/2019 Findings: Scattered areas of fibroglandular density are noted bilaterally.There is no evidence of interval dominant spiculated mass, groupedmicrocalcifications or skin thickening which would be suggestive ofmalignancy. Mild scattered benign- appearing calcifications notedbilaterally. Stable benign-appearing nodular density in the upper outerportion of the left breast. Axillary lymph nodes are noted bilaterally. IMPRESSION: Impression: No specific evidence of malignancy seen in either breast. BI-RADS 2 Breast Density: There are scattered areas of fibroglandular density BiRads: BIRADS 2 - Benign Recommended follow-up: Routine Screening Mamm ELECTRONICALLY SIGNED BY: Ray Castillo M.D. Colt Roland MD IMG BI PROCEDURES Final Resu lt * POCT microalbumin manually resulted (12/08/2023 9:21 AM EDT) MICROALBUMIN, URINE 10 ALB/CREAT RATIO 100 URINE CREAT 0.1 Urine 12/08/2023 9:21 AM EDT us Colt Roland MD POINT OF CARE TEST ENTER/DAWNA T ORDERABLES Final Result * (ABNORMAL) Hemoglobin A1c (11/05/2022) HEMOGLOBIN A1C 6.8 [facility] Blood Venous blood specimen / Unknown 11/05/2022 Colt Roland MD LAB BLOOD ORDERABLES Edited Result - Final [facility] from Last 3 Months or Most Recently Relevant to Health Maintenance Insurance [facility] MEDICAID [place] Care Teams Brand Recorder Relationship Specialty Start Date End Date Colt Roland MD PCP - General Family Medicine 10/16/22 Colt Roland MD [address] [facility] [address] [place] [address] PCP - [facility] SNORKELLING INSTRUCTOR 07/14/23
--- OUTSIDE RECORDS SUMMARY | 2025-01-07 08:27 | XMS_ITS | Encounter Summary ---
Author Organization [facility] Address [address] [place] [address] Care Team Providers Care Dean Of Faculty Name Role Phone Colt Roland MD Primary Care Provider [phone] Colt Roland MD Unavailable [phone] Reason for Visit * Reason Comments Med Refill Encounter Details Date Type Department Care Team (Late st Contact Info) Description 12/31/2022 Refill [facility] [address] [facility] [place] [address] Colt Roland MD [address] [place] [address] Hypothyroidism, unspecified Social History Tobacco Use Types [...] often do you attend chur ch or mu-ism services? More than 4 times per year 01/01/2023 Do you belong to any clubs o r organizations such as druze groups, unions, fraternal or athletic groups, or [...] Recorded Patient Health Questionnaire-2 Score 0 12/04/2022 [facility] - Occupational Stress Questionnaire Answer Date [...] 10:00 AM EDT Office Visit [facility] [address] [facility] [address] [place] [address] Colt Roland MD [address] [facility] [address] [place] [address] documented as of this encounter Visit Diagnoses Diagnosis Hypothyroidism, unspecified documented in this encounter Care Teams Dean Of Faculty Relationship Specialty Start Date End Date Colt Roland MD PCP - General Family Medicine 10/16/22 Colt Roland MD [address] [facility] [address] [place] [address] PCP - [facility] ERGONOMICS ENGINEER 07/14/23 documented as of this encounter
--- OUTSIDE RECORDS SUMMARY | 2025-01-07 08:27 | XMS_ITS | Encounter Summary ---
Author Organization [facility] Address [address] [place] [address] Care Team Providers Care Ice Puller Name Role Phone Colt Roland MD Primary Care Provider [phone] Colt Roland MD Unavailable [phone] Encounter Details Date Type Department Care Team (Late st Contact Info) Description 12/04/2022 Orders Only [facility] [address] [id number] Colt Roland MD [address] [facility] [address] [place] [address] Social History Tobacco Use Types Packs/Day Years [...] often do you attend chur ch or sikh services? More than 4 times per year 11/12/2022 Do you belong to any clubs o r organizations such as islam groups, unions, fraternal or athletic groups, or [...] Recorded Patient Health Questionnaire-2 Score 0 12/04/2022 [facility] - Occupational Stress [...] place to sleep or slept in a penitentiary (including now)? No 11/12/2022 Education Answer Date [...] as of this encounter Functional Status * Over the past 2 weeks, how often have you been bothered by any of the following problems? Question Answer Date of Assessment Author Little interest or pleasure in doing things Not at all 12/04/2022 10:45 AM EDT Dmitri July, M A Feeling down, depressed, or hopeless Not at all 12/04/2022 10:45 AM EDT Dmitri July, M A Patient Health Questionnaire -2 Score 0 12/04/2022 10:45 AM EDT Dmitri July, M A documented as of this encounter Plan of Treatment Upcoming Encounters Date Type Department Care Team (Late st Contact Info) Description 01/10/2025 10:00 AM EDT Office Visit [facility] 112 [facility] 100 [place] [address] Colt Roland MD [address] [address] documented as of this encounter Procedures Procedure Name Priority Date/Time Associated Diagnosis Comments DIABETIC RETINOPATHY SCREENING - OU - BOTH EYES Routine 04/24/2022 2:24 PM EST documented in this encounter Results * Diabetic Retinopathy Screening - OU - Both Eyes (04/24/2022 2:24 PM EST) Anatomical Region Laterality Modality Head Other Colt Roland MD OPHTH PHOTOGRAPHY Edited Res ult - Final documented in this encounter Visit Diagnoses Not on filedocumented in this encounter Care Teams Ice Puller Relationship Specialty Start Date End Date Colt Roland MD PCP - General Family Medicine 10/16/22 Colt Roland MD [address] [address] PCP - [facility] CUPOLA TAPPER 07/14/23 documented as of this encounter
--- OUTSIDE RECORDS SUMMARY | 2025-01-07 08:28 | XMS_ITS | CCD ---
Author Organization [facility] Care Team Providers Care Mandrel Maker Name Role Phone COLT BOGGS Referring Unavailable HEMEYER, COLT Primary Care Unavailable RENNO, ANAS Attending Unavailable RENNO, ANAS Admitting Unavailable [place] Procedure Practitioner Unavailab REG Molina Surgeon Unavailable [place] Procedure Practitioner Unavailab MARIBEL Richardson Surgeon Unavail able [place] Procedure Practitioner Unavailab TK Ha A Surgeon Unavailable [place] Procedure Practitioner Unavailab le UNKNOWN, PROVIDER Surgeon [...] Unavailable HEMEYER ., DR DALEY Attending Unavailable Alfredyer Colt LANZA Primary Care Provider Colt Boggs MD Unavailable Colt Boggs MD Primary Care Provider Colt Boggs MD Unavailable COLT BOGGS Referring Unavailable COLT BOGGS Primary Care Unavailable Colt Boggs MD Unavailable COLT BOGGS Attending Unavailable COLT BOGGS Attending Unavailable COLT BOGGS Attending Unavailable COLT BOGGS Attending Unavailable COLT BOGGS Referring Unavailable COLT BOGGS Attending Unavailable COLT BOGGS Attending Unavailable Allergies Allergy Classification Reported Allergen(s) Allergy Type Date of Onset Reaction(s) Facility (2 sources) Nalbuphine Drug Allergy 4 [facility] Repository (17 sources) Nalbuphine; Translations: [NALBUPHINE] Drug Allergy 3 GI intolerance [facility] (16 sources) Rosuvastatin calcium Propensity to adverse reactions 4 Other [facility] (16 sources) Semaglutide Allergy to substance 3 [facility] Medications Current Medications Medication Drug Class(es) Dates Sig (Normalized) Sig (Original) aspirin 81 mg delayed release oral tablet (16 sources) Platelet Aggregation Inhibitor, Nonsteroidal Anti-inflammatory Drug take 1 tablet by mouth once daily aspirin 81 MG EC tablet Take 81 mg by mouth 1 (one) time each day at the same time. Active biotin 1 mg oral capsule (16 sources) take 1 capsule by mouth once daily biotin 1 MG capsule Take 1 capsule by mouth 1 (one) time each day at the same time. Active colestipol hydrochloride 1000 mg oral tablet (2 sources) Bile Acid Sequestrant Start: 10-05-2024 colestipol (Colestid) 1 g tablet Indications: Postsurgical dumping syndrome Titrate from 1 to 2 tablets twice daily. Take at least 1 hour after or 4 hours before other medications. 120 tablet 1 10/05/2024 Active 0.5 ml dulaglutide 1.5 mg/ml auto-injector (2 sources) GLP-1 Receptor Agonist Start: 03-15-2024 End: 06-13-2024 inject 0.75 mg by subcutaneous injection every week Dulaglutide (Trulicity) 0.75 MG/0.5ML solution auto-injector Indications: Type 2 diabetes mellitus with stage 3a chronic kidney disease, without long-term current use of insulin (HCC) (CMS/HCC) , Morbid obesity due to excess calories (CMS/HCC) Inject 0.75 mg under the skin 1 (one) time per week 2 mL 03/15/2024 06/13/2024 Active empagliflozin 25 mg oral tablet (4 sources) Sodium-Glucose Cotransporter 2 Inhibitor Start: 07-06-2024 End: 10-04-2024 take 1 tablet by mouth once daily empagliflozin (Jardiance) 25 MG Indications: Type 2 diabetes mellitus with stage 3a chronic kidney disease, without long-term current use of insulin (HCC) Take 1 tablet (25 mg) by mouth Daily 30 tablet 2 07/06/2024 Active glipiZIDE 5 mg oral tablet (12 [...] Active levothyroxine sodium 0.075 mg oral tablet (18 sources) l-Thyroxine Start: 01-15-2024 End: 02-03-2025 take 1 tablet by mouth before mealtime levothyroxine (Synthroid, Levoxyl) 75 MCG tablet Indications: Acquired hypothyroidism Take 1 tablet (75 mcg) [...] Active losartan potassium 100 mg oral tablet (20 sources) Angiotensin 2 Receptor Oumar Start: 07-06-2024 End: 01-03-2025 take 1 tablet by mouth once daily losartan (Cozaar) 100 MG tablet Indications: Benign essential hypertension Take 1 tablet (100 mg) by mouth Daily 30 tablet 2 10/05/2024 01/03/2025 Active Start: 01-15-2024 End: 06-13-2024 take 1 tablet [...] Active metFORMIN hydrochloride 1000 mg oral tablet (20 sources) Biguanide Start: 07-06-2024 End: 01-03-2025 take 1 tablet by mouth in the morning metFORMIN (Glucophage) 1000 MG tablet Indications: Type 2 diabetes mellitus with stage 2 chronic kidney disease, without long-term current use of insulin (HCC) Take 1 tablet (1,000 mg) by mouth in the morning and 1 tablet (1,000 mg) in the evening. Take with meals. 60 tablet 2 10/05/2024 01/03/2025 Active Start: 01-15-2024 End: 06-13-2024 take 1 tablet [...] Active metoprolol tartrate 50 mg oral tablet (20 sources) beta-Adrenergic Oumar Start: 07-06-2024 End: 01-03-2025 take 1 tablet by mouth in the morning metoprolol tartrate (Lopressor) 50 MG tablet Indications: Benign essential hypertension Take 1 tablet (50 mg) by mouth in the morning and 1 tablet (50 mg) before bedtime. 60 tablet 2 10/05/2024 01/03/2025 Active Start: 01-15-2024 End: 06-13-2024 take 1 tablet [...] potassium 99 mg extended release oral tablet (16 sources) take 1 tablet by trace th once daily Potassium 99 MG tablet Take 99 mg by mouth 1 (one) time each day at the same time. Active Problems Active Problems Problem Classification Problem Date Documented Da te Episodic/Chronic Cardiac dysrhythmias (1 source) Tachycardia, unspecified; Translations: [TACHYCARDIA, UNSPECIFIED] Onset: 05-23-2018 Episodic Chronic kidney disease (20 sources) Chronic kidney disease stage 3A ; Translations: [Stage 3a chronic kidney disease (HCC)] Onset: 11-05-2022 11-05-2022 Chronic Chronic kidney disease (1 source) Chronic kidney disease; Translations: [CHRONIC KIDNEY DISEASE STAGE 3A] Onset: 02-28-2022 Complications of surgical procedures or medical care (18 sources) Postgastric surgery syndrome; 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] Onset: 11-05-2022 11-05-2022 Episodic Diabetes mellitus with complications (20 sources) Type 2 diabetes mellitus with diabetic chronic kidney disease; Translations: [Chronic kidney disease due to type 2 diabetes mellitus] Onset: 02-28-2022 Chronic Diabetes mellitus without complication (1 source) Type 2 diabetes mellitus without complications; Translations: [TYPE 2 DIABETES MELLITUS WITHOUT COMPLICATIONS] Onset: 05-23-2018 Chronic Disorders of lipid metabolism (20 sources) Hyperlipidemia, unspecified; Translations: [Mixed hyperlipidemia] Onset: 05-23-2018 11-05-2022 Chronic Essential hypertension (20 sources) Essential (primary) hypertension; Translations: [Benign essential hypertension] Onset: 05-23-2018 11-05-2022 Chronic Hypertension with complications and secondary hypertension (20 sources) Hypertensive chronic kidney disease with stage 1 through stage 4 chronic kidney disease, or unspecified chronic kidney disease; Translations: [Hypertensive renal disease] Onset: 02-25-2022 Chronic Malaise and fatigue (20 sources) Chronic fatigue, unspecified; Translations: [Chronic fatigue syndrome] Onset: 07-04-2022 Resolved: 01-28-2024 Chronic Other aftercare (1 source) [facility] (current) use of aspirin; Translations: [[facility] (CURRENT) USE OF ASPIRIN] Onset: 05-23-2018 Episodic Other aftercare (2 sources) Polypharmacy ; Translations: [Other group home (current) drug therapy] 02-04-2024 Episodic Other aftercare (1 source) [facility] (current) use of oral hypoglycemic drugs; Translations: [[facility] (CURRENT) USE OF ORAL HYPOGLYCEMIC DRUGS] Onset: 05-23-2018 Other connective tissue disease (20 sources) Myalgia caused by statin; Translations: [Myalgia, unspecified site] Onset: 10-22-2023 10-22-2023 Episodic Other hereditary and degenerative nervous system conditions (16 sources) Restless legs; Translations: [Restless legs syndrome] Onset: 11-05-2022 11-05-2022 Chronic Other nervous system disorders (1 source) Encephalopathy, unspecified; Translations: [ENCEPHALOPATHY, UNSPECIFIED] Onset: 05-23-2018 Chronic Other nutritional; endocrine; and metabolic disorders (17 sources) Morbid obesity; Translations: [Morbid (severe) obesity [...] PARTS OF DIGESTIVE TRACT] Onset: 05-23-2018 Episodic Residual codes; unclassified (1 source) Pain, unspecified; Translations: [Pain, unspecified] Onset: 08-01-2024 Episodic Respiratory failure; insufficiency; arrest (adult) (1 [...] patient; Translations: [Other specified counseling] 12-02-2023 Episodic Genitourinary symptoms and ill-defined conditions (2 sources) Microalbuminuria; Translations: [Proteinuria, unspecified] 12-08-2023 Episodic Other diseases of veins and lymphatics (16 sources) Vascular insufficiency; Translations: [Venous insufficiency (chronic) (peripheral)] Onset: 11-05-2022 11-05-2022 Episodic Other nutritional; endocrine; and metabolic disorders (18 sources) Severe obesity; Translations: [Class 2 severe [...] Test Name Value Interpretation Reference Range Facility MLR HEMOGLOBIN A1Con 025 Glucose [Mass/Vol] 272 mg/dL [facility] HbA1c (Bld) [Mass fraction] 11.1 % High 4.5 - 6.2 % [facility] Comment on above: ADA RECOMMENDED LIMI T 4.0 - 6.0 ADA THERAPEUTIC TARGET < 7.0 ACTION SUGGESTED > 7.0 Interpretation and review of laboratory results Abnormal [facility] ALL THYROXINE (T4) FREEon Free T4 [Mass/Vol] 1.35 ng/dL 0.76 - 1. 46 ng/dL [facility] ALL THYROXINE (T4) FREEon Free T4 [Mass/Vol] 1.26 ng/dL 0.76 - 1. 46 ng/dL [facility] BI MAMMOGRAM SCREENING TOMOS YNTHESIS BILATERALon 12-22-2023 [...] <= 20 mg/L (U) [Mass/Vol] 10 mg/dL [facility] Albumin/Creatinine DL <= 1.0 mg/L (U) [Ratio] 100 [facility] Creatinine (U) [Mass/Vol] 0.1 mg/dL [facility] No Panel Informationon 12-07 Interpretation and review of laboratory results Normal [facility] GLYCOHEMOGLOBIN A1Con 2022 ADA RECOMMENDATION SEE BELOW Normal [facility] Comment on above: Result Comment: ADA RECOMMENDED LIMIT 4.0 - 6.0 ADA THERAPEUTIC TARGET < 7.0 ACTION SUGGESTED > 7.0 Performed By: #### A 1C #### [facility] [address] [place] [address] Dr. Veronica Floyd Glucose [Mass/Vol] 160 mg/dL Normal [facility] Comment on above: Performed By: #### A 1C #### [facility] [address] [place] [address] Dr. Veronica Floyd HbA1c (Bld) [Mass fraction] 7.2 % Critically high 4.5-6.2 [facility] Comment on above: Performed By: #### A 1C #### [facility] [address] [place] [address] Dr. Veronica Floyd FREE T3on 07-04-2022 FREE T3 2.59 pg/mlL Normal 2.18-3.98 [facility] Comment on above: Performed By: #### T SH, FT3 #### [facility] [address] [place] [address] Dr. Veronica Floyd FREE T4on 07-04-2022 Free T4 [Mass/Vol] 1.25 ng/dL Normal 0.76-1.46 [facility] Comment on above: Performed By: #### F T4 #### [facility] [address] [place] [address] Dr. Veronica Floyd TSHon 07-04-2022 TSH 3.607 uIU/mL Normal 0.358-3.740 [facility] Comment on above: Performed By: #### T SH, FT3 #### [facility] [address] [place] [address] Dr. Veronica Floyd GLYCOHEMOGLOBIN A1Con 2021 ADA RECOMMENDATION SEE BELOW Normal [facility] Comment on above: Result Comment: ADA RECOMMENDED LIMIT 4.0 - 6.0 ADA THERAPEUTIC TARGET < 7.0 ACTION SUGGESTED > 7.0 Performed By: #### A 1C #### [facility] [address] [place] [address] Dr. Veronica Floyd Glucose [Mass/Vol] 154 mg/dL Normal [facility] Comment on above: Performed By: #### A 1C #### [facility] [address] [address] [address] Veronica Floyd HbA1c (Bld) [Mass fraction] 7.0 % Critically high 4.5-6.2 [facility] Comment on above: Performed By: #### A 1C #### [facility] [address] [place] [address] Dr. Veronica Floyd LIPID PROFILEon 02-25-2022 CHOL-HDL RATIO NORM SEE BELOW Normal [facility] Comment on above: Result Comment: 3.3 - 4.4 LOW RISK 4.4 - 7.1 AVERAGE RISK 7.1 - 11.0 MODERATE RISK >11.0 HIGH RISK Performed By: #### C MP, LIPID #### [facility] [address] [place] [address] Dr. Veronica Floyd Cholesterol [Mass/Vol] 173 mg/dL Normal <=200 [facility] Comment on above: Performed By: #### C MP, LIPID #### [facility] [address] [place] [address] Dr. Veronica Floyd Cholesterol in HDL [Mass/Vol] 44 mg/dL Normal 40-60 [facility] Comment on above: Performed By: #### C MP, LIPID #### [facility] [address] [place] [address] Dr. Veronica Floyd Cholesterol in LDL [Mass/Vol] 114.6 mg/dL Normal [facility] Comment on above: Performed By: #### C MP, LIPID #### [facility] [address] [place] [address] Dr. Veronica Floyd Cholesterol.total/ Cholesterol in HDL [Mass ratio] 3.9 {ratio} Normal [facility] Comment on above: Performed By: #### C MP, LIPID #### [facility] [address] [place] [address] Dr. Veronica Floyd HDL NORMAL > or = 60 mg/dl - LO W CARDIOVASCULAR RISK <40 mg/dl - HIGH CARDIOVASCULAR RISK Normal [facility] Comment on above: Performed By: #### C MP, LIPID #### [facility] [address] [address] [address] Veronica Floyd LDL CALC NORMAL SEE BELOW Normal [facility] Comment on above: Result Comment: <100 mg/dl OPTIMAL 100 - 129 mg/dl NEAR OR ABOVE OPTIMAL 130 - 159 mg/dl BORDERLINE HIGH 160 - 189 mg/dl HIGH >190 mg/dl VERY HIGH Performed By: #### C MP, LIPID #### [facility] [address] [address] [address] Veronica Floyd Triglyceride [Mass/Vol] 72 mg/dL Normal <=150 [facility] Comment on above: Performed By: #### C MP, LIPID #### [facility] [address] [address] [address] Veronica Floyd VLDL CALC 14.4 mg/dL Normal [facility] Comment on above: Performed By: #### C MP, LIPID #### [facility] [address] [place] [address] Dr. Veronica Floyd PROF 14(COMP METB)on 02-25- 022 Albumin [Mass/Vol] 4.0 g/dL Normal 3.4-5.0 [facility] Comment on above: Performed By: #### C MP, LIPID #### [facility] [address] [place] [address] Dr. Veronica Floyd Albumin/Globulin [Mass ratio] 1.0 {ratio} Normal [facility] Comment on above: Performed By: #### C MP, LIPID #### [facility] [address] [address] [address] Veronica Floyd ALP [Catalytic activity/Vol] 53 U/L Normal 46-116 [facility] Comment on above: Performed By: #### C MP, LIPID #### [facility] [address] [address] [address] Veronica Floyd ALT [Catalytic activity/Vol] 45 U/L Normal 14-59 [facility] Comment on above: Performed By: #### C MP, LIPID #### [facility] [address] [address] [address] Veronica Floyd Anion gap [Moles/Vol] 9.8 mmol/L Normal [facility] Comment on above: Performed By: #### C MP, LIPID #### [facility] [address] [address] [address] Veronica Floyd AST [Catalytic activity/Vol] 23 U/L Normal 15-37 [facility] Comment on above: Performed By: #### C MP, LIPID #### [facility] [address] [address] [address] Veronica Floyd Bilirubin [Mass/Vol] 0.3 mg/dL Normal 0.2-1.0 [facility] Comment on above: Performed By: #### C MP, LIPID #### [facility] [address] [address] [address] Veronica Floyd Calcium [Mass/Vol] 9.5 mg/dL Normal 8.5-10.1 [facility] Comment on above: Performed By: #### C MP, LIPID #### [facility] [address] [address] [address] Veronica Floyd Chloride [Moles/Vol] 101 mmol/L Normal 98-107 [facility] Comment on above: Performed By: #### C MP, LIPID #### [facility] [address] [address] [address] Veronica Floyd CO2 [Moles/Vol] 28.4 mmol/L Normal 21.0-32.0 [facility] Comment on above: Performed By: #### C MP, LIPID #### [facility] [address] [address] [address] Veronica Floyd Creatinine [Mass/Vol] 0.90 mg/dL Normal 0.55-1.02 [facility] Comment on above: Performed By: #### C MP, LIPID #### [facility] [address] [address] [address] Veronica Floyd EGFR-AF NIGERIAN >60 Normal >=60 [facility] Comment on above: Performed By: #### C MP, LIPID #### [facility] [address] [address] [address] Veronica Floyd EGFR-NON AF NIGERIAN >60 Normal >=60 [facility] Comment on above: Performed By: #### C MP, LIPID #### [facility] [address] [address] [address] Veronica Floyd Globulin (S) [Mass/Vol] 4.1 g/dL Normal [facility] Comment on above: Performed By: #### C MP, LIPID #### [facility] [address] [address] [address] Veronica Floyd Glucose [Mass/Vol] 136 mg/dL Critically high 74-106 [facility] Comment on above: Performed By: #### C MP, LIPID #### [facility] [address] [address] [address] Veronica Floyd Potassium [Moles/Vol] 4.2 mmol/L Normal 3.5-5.1 [facility] Comment on above: Performed By: #### C MP, LIPID #### [facility] [address] [place] [address] Dr. Veronica Floyd Protein [Mass/Vol] 8.1 g/dL Normal 6.4-8.2 [facility] Comment on above: Performed By: #### C MP, LIPID #### [facility] [address] [place] [address] Dr. Veronica Floyd Sodium [Moles/Vol] 135 mmol/L Critically low 136-145 [facility] Comment on above: Performed By: #### C MP, LIPID #### [facility] [address] [place] [address] Dr. Veronica Floyd Urea nitrogen [Mass/Vol] 18.0 mg/dL Normal 7.0-18.0 [facility] Comment on above: Performed By: #### C MP, LIPID #### [facility] [address] [place] [address] Dr. Veronica Floyd Urea nitrogen/Creatinin e [Mass ratio] 20.0 mg/mg Normal [facility] Comment on above: Performed By: #### C MP, LIPID #### [facility] [address] [place] [address] Dr. Veronica Floyd GLYCOHEMOGLOBIN A1Con 2021 ADA RECOMMENDATION SEE BELOW Normal [facility] Comment on above: Result Comment: ADA RECOMMENDED LIMIT 4.0 - 6.0 ADA THERAPEUTIC TARGET < 7.0 ACTION SUGGESTED > 7.0 Performed By: #### A 1C #### [facility] [address] [address] [address] Veronica Floyd Glucose [Mass/Vol] 137 mg/dL Normal [facility] Comment on above: Performed By: #### A 1C #### [facility] [address] [address] [address] Veronica Floyd HbA1c (Bld) [Mass fraction] 6.4 % Critically high 4.5-6.2 [facility] Comment on above: Performed By: #### A 1C #### [facility] [address] [address] [address] Veronica Floyd BASIC METABOLIC PANELon 05-16 Calcium mass conc 9.5 mg/dL Normal 8.6-10.3 [facility] Comment on above: Order Comment: No: D o not add to previous draw Performed By: #### 3 1018 #### [facility] [address] [place] [address], [place] Chloride molar conc 102 mmol/L Normal 98-107 [facility] Comment on above: Order Comment: No: D o not add to previous draw Performed By: #### 3 1018 #### [facility] [address] [place] [address], [place] CO2 molar conc 30 mmol/L Normal 21-31 [facility] Comment on above: Order Comment: No: D o not add to previous draw Performed By: #### 3 1018 #### [facility] [address] [place] [address], [place] Creatinine mass conc 1.14 mg/dL Normal 0.60-1.20 [facility] Comment on above: Order Comment: No: D o not add to previous draw Performed By: #### 3 1018 #### [facility] [address] [place] [address], [place] GFR/1.73 sq M predicted among blacks MDRD vol rate/area (S/P/Bld) 59 ml/min/1.73sq m Abnormal >60 [facility] Comment on above: Order Comment: No: D o not add to previous draw Performed By: #### 3 1018 #### [facility] [address] [place] [address], [place] GFR/1.73 sq M predicted among non-blacks MDRD vol rate/area (S/P/Bld) 49 ml/min/1.73sq m Abnormal >60 [facility] Comment on above: Order Comment: No: D o not add to previous draw Performed By: #### 3 1018 #### [facility] [address] [place] [address], [place] Glucose mass conc 132 mg/dL High 70-100 [facility] Comment on above: Order Comment: No: D o not add to previous draw Performed By: #### 3 1018 #### [facility] [address] [place] [address], [place] Potassium molar conc 3.8 mmol/L Normal 3.5-5.1 [facility] Comment on above: Order Comment: No: D o not add to previous draw Performed By: #### 3 1018 #### [facility] [address] [place] [address], [place] Sodium molar conc 141 mmol/L Normal 136-145 [facility] Comment on above: Order Comment: No: D o not add to previous draw Performed By: #### 3 1018 #### [facility] [address] [place] [address], [place] Urea nitrogen mass conc 28 mg/dL High 7-25 [facility] Comment on above: Order Comment: No: D o not add to previous draw Performed By: #### 3 1018 #### [facility] [address] [place] [address], [place] CBC COMPLETE BLOOD COUNTon 0 06-03-2018 Erythrocyte distribution width Ratio (RBC) 14.6 % Normal 11.5-15.0 [facility] Comment on above: Order Comment: No: D o not add to previous draw Performed By: #### 3 1018 #### [facility] [address] [place] [address], [facility] Hematocrit Volume Fraction (Bld) 39.7 % Normal 36.0-45.0 [facility] Comment on above: Order Comment: No: D o not add to previous draw Performed By: #### 3 1018 #### [facility] [address] [place] [address], [facility] Hemoglobin mass conc (Bld) 12.8 g/dL Normal 12.0-15.0 [facility] Comment on above: Order Comment: No: D o not add to previous draw Performed By: #### 3 1018 #### [facility] [address] [place] [address], [facility] MCH Entitic mass (RBC) 27.9 pg Normal 27.0-33.0 [facility] Comment on above: Order Comment: No: D o not add to previous draw Performed By: #### 3 1018 #### [facility] [address] [place] [address], [facility] MCHC mass conc (RBC) 32.2 g/dL Normal 32.0-35.0 [facility] Comment on above: Order Comment: No: D o not add to previous draw Performed By: #### 3 1018 #### [facility] [address] [place] [address], [facility] MCV Entitic volume (RBC) 86.7 fL Normal 82.0-98.0 [facility] Comment on above: Order Comment: No: D o not add to previous draw Performed By: #### 3 1018 #### [facility] [address] [place] [address], [facility] Nucleated RBC/100 WBC Ratio (Bld) 0 % Normal 0-0 [facility] Comment on above: Order Comment: No: D o not add to previous draw Performed By: #### 3 1018 #### [facility] [address] [place] [address], [facility] PLAT CNT 256 10*3/uL Normal 150-400 [facility] Comment on above: Order Comment: No: D o not add to previous draw Performed By: #### 3 1018 #### [facility] [address] [facility]. [address] RBC #/vol (Bld) 4.58 10*6/uL Normal 3.80-5.00 [facility] Comment on above: Order Comment: No: D o not add to previous draw Performed By: #### 3 1018 #### [facility] [address] [facility] [place] [address], [facility] WBC #/vol (Bld) 5.70 10*3/uL Normal 4.00-10.60 [facility] Comment on above: Order Comment: No: D o not add to previous draw Performed By: #### 3 1018 #### [facility] [address] [facility]. [address] IMMUNOGLOB BLon 06-03-2018 IgA mass conc 364 mg/dL Normal 60-413 [facility] Comment on above: Order Comment: No: D o not add to previous draw Performed By: #### 3 1018 #### [facility] [address] [facility]. [address] IgG mass conc 1180 mg/dL Normal 591-1540 [facility] Comment on above: Order Comment: No: D o not add to previous draw Performed By: #### 3 1018 #### [facility] [address] [facility]. [address] IgM mass conc 187 mg/dL Normal 54-285 [facility] Comment on above: Order Comment: No: D o not add to previous draw Performed By: #### 3 1018 #### [facility] [address] [place] [address], [facility] IMMUNOGLOBULIN [place] 9 [place] Normal [facility] Comment on above: Order Comment: No: D o not add to previous draw IMMUNOGLOBULIN E 230 IU/mL High <101 [facility] Comment on above: Order Comment: No: D o not add to previous draw POC GLUCOSE LABon 06-03-2018 Glucose mass conc 250 mg/dL High 70-100 [facility] Comment on above: Performed By: #### 3 1018 #### [facility] [address] [place] [address], [facility] Glucose mass conc 254 mg/dL High 70-100 [facility] Comment on above: Performed By: #### 3 1018 #### [facility] [address] [place] [address], [facility] Glucose mass conc 131 mg/dL High 70-100 [facility] Comment on above: Performed By: #### 3 1018 #### [facility] [address] [place] [address], [facility] Glucose mass conc 117 mg/dL High 70-100 [facility] Comment on above: Performed By: #### 3 1018 #### [facility] [address] [place] [address], [facility] BASIC METABOLIC PANELon 05-15 Calcium mass conc 9.4 mg/dL Normal 8.6-10.3 [facility] Comment on above: Order Comment: No: D o not add to previous draw Performed By: #### 3 1018 #### [facility] [address] [place] [address], [facility] Chloride molar conc 97 mmol/L Low 98-107 [facility] Comment on above: Order Comment: No: D o not add to previous draw Performed By: #### 3 1018 #### [facility] [address] [place] [address], [facility] CO2 molar conc 30 mmol/L Normal 21-31 [facility] Comment on above: Order Comment: No: D o not add to previous draw Performed By: #### 3 1018 #### [facility] [address] [place] [address], [facility] Creatinine mass conc 1.15 mg/dL Normal 0.60-1.20 [facility] Comment on above: Order Comment: No: D o not add to previous draw Performed By: #### 3 1018 #### [facility] [address] [place] [address], [place] GFR/1.73 sq M predicted among blacks MDRD vol rate/area (S/P/Bld) 59 ml/min/1.73sq m Abnormal >60 [facility] Comment on above: Order Comment: No: D o not add to previous draw Performed By: #### 3 1018 #### [facility] [address] [place] [address], [place] GFR/1.73 sq M predicted among non-blacks MDRD vol rate/area (S/P/Bld) 49 ml/min/1.73sq m Abnormal >60 [facility] Comment on above: Order Comment: No: D o not add to previous draw Performed By: #### 3 1018 #### [facility] [address] [place] [address], [facility] Glucose mass conc 172 mg/dL High 70-100 [facility] Comment on above: Order Comment: No: D o not add to previous draw Performed By: #### 3 1018 #### [facility] [address] [place] [address], [place] Potassium molar conc 2.9 mmol/L Low 3.5-5.1 [facility] Comment on above: Order Comment: No: D o not add to previous draw Performed By: #### 3 1018 #### [facility] [address] [place] [address], [facility] Sodium molar conc 138 mmol/L Normal 136-145 [facility] Comment on above: Order Comment: No: D o not add to previous draw Performed By: #### 3 1018 #### [facility] [address] [place] [address], [facility] Urea nitrogen mass conc 24 mg/dL Normal 7-25 [facility] Comment on above: Order Comment: No: D o not add to previous draw Performed By: #### 3 1018 #### [facility] [address] [place] [id number], [facility] HEMOGLOBIN A1Con 06-02-2018 Hemoglobin A1c/Hemoglobin.tot al mass fraction (Bld) 7.1 % High 4.0-6.0 [facility] Comment on above: Order Comment: Yes: Add to Previous draw if able Performed By: #### 3 1018 #### [facility] [address] [facility] [place] [address], [facility] Hemoglobin A1c/Hemoglobin.tot al mass fraction (Bld) 157 mg/dL High 70-126 [facility] Comment on above: Order Comment: Yes: Add to Previous draw if able Performed By: #### 3 1018 #### [facility] [address] [place] [address], [facility] MAGNESIUM BLOODon 06-02-2018 Magnesium mass conc 2.5 mg/dL Normal 1.9-2.7 [facility] Comment on above: Performed By: #### 3 1018 #### [facility] [address] [place] [address], [facility] MISCELLANEOUS PATHon 019 RESULT Results faxed to [facility] and sent to HIM Normal [facility] Comment on above: Order Comment: [facility]# [id number] ALLERGEN, FOOD, ALPHA-Gal PANEL CPT 11185 X4 Result Comment: Test performed at [facility] [employer], [address] [place] [id number]. Results faxed to Dr. Arroyo at [phone] Performed By: #### 3 1018 #### [facility] [address] [place] [address], [place] POC GLUCOSE LABon 06-02-2018 Glucose mass conc 243 mg/dL High 70-100 [facility] Comment on above: Performed By: #### 3 1018 #### [facility] [address] [place] [address], [place] Glucose mass conc 236 mg/dL High 70-100 [facility] Comment on above: Performed By: #### 3 1018 #### [facility] [address] [place] [address], [place] Glucose mass conc 154 mg/dL High 70-100 [facility] Comment on above: Performed By: #### 3 1018 #### [facility] [address] [place] [address], [place] Glucose mass conc 215 mg/dL High 70-100 [facility] Comment on above: Performed By: #### 3 1018 #### [facility] [address] [place] [address], [place] BASIC METABOLIC PANELon 05-15 Calcium mass conc 9.5 mg/dL Normal 8.6-10.3 [facility] Comment on above: Order Comment: No: D o not add to previous draw Performed By: #### 3 1018 #### [facility] [address] [place] [address], [place] Chloride molar conc 95 mmol/L Low 98-107 [facility] Comment on above: Order Comment: No: D o not add to previous draw Performed By: #### 3 1018 #### [facility] [address] [place] [address], [place] CO2 molar conc 30 mmol/L Normal 21-31 [facility] Comment on above: Order Comment: No: D o not add to previous draw Performed By: #### 3 1018 #### [facility] [address] [place] [address], [facility] Creatinine mass conc 0.78 mg/dL Normal 0.60-1.20 [facility] Comment on above: Order Comment: No: D o not add to previous draw Performed By: #### 3 1018 #### [facility] [address] [place] [address], [facility] GFR/1.73 sq M predicted among blacks MDRD vol rate/area (S/P/Bld) mL/min/{1.73_m2} Normal >60 [facility] Comment on above: Order Comment: No: D o not add to previous draw Performed By: #### 3 1018 #### [facility] [address] [place] [address], [facility] GFR/1.73 sq M predicted among non-blacks MDRD vol rate/area (S/P/Bld) mL/min/{1.73_m2} Normal >60 [facility] Comment on above: Order Comment: No: D o not add to previous draw Performed By: #### 3 1018 #### [facility] [address] [place] [address], [facility] Glucose mass conc 160 mg/dL High 70-100 [facility] Comment on above: Order Comment: No: D o not add to previous draw Performed By: #### 3 1018 #### [facility] [address] [place] [address], [facility] Potassium molar conc 3.1 mmol/L Low 3.5-5.1 [facility] Comment on above: Order Comment: No: D o not add to previous draw Performed By: #### 3 1018 #### [facility] [address] [place] [address], [facility] Sodium molar conc 138 mmol/L Normal 136-145 [facility] Comment on above: Order Comment: No: D o not add to previous draw Performed By: #### 3 1018 #### [facility] [address] Urea nitrogen mass conc 16 mg/dL Normal 7-25 [facility] Comment on above: Order Comment: No: D o not add to previous draw Performed By: #### 3 1018 #### [facility] [address] CBC W/DIFFon 06-01-2018 ABS BASOPHILS 0.0 10*3/uL Normal 0.0-0.2 [facility] Comment on above: Order Comment: No: D o not add to previous draw Performed By: #### 2 5508, 04131, 93779, 70555 #### [facility] [address] ABS IMM GRANS 0.1 10*3/uL Normal 0.0-0.2 [facility] Comment on above: Order Comment: No: D o not add to previous draw Performed By: #### 2 5508, 38601, 98194, 82974 #### [facility] [address] ABS NEUTROPHILS 5.1 10*3/uL Normal 1.6-7.6 [facility] Comment on above: Order Comment: No: D o not add to previous draw Performed By: #### 2 5508, 50196, 30281, 24769 #### [facility] [address] [facility]. [address] Basophils #/vol (Bld) 0.5 % Normal 0.0-1.0 [facility] Comment on above: Order Comment: No: D o not add to previous draw Performed By: #### 2 5508, 93046, 07161, 30795 #### [facility] [address] [facility]. [address] Eosinophils #/vol (Bld) 0.0 10*3/uL Normal 0.0-0.5 [facility] Comment on above: Order Comment: No: D o not add to previous draw Performed By: #### 2 5507, 28137, 04120, 24005 #### [facility] [address] [place] [address], [facility] Eosinophils/100 WBC (Bld) 0.1 % Normal 0.0-6.0 [facility] Comment on above: Order Comment: No: D o not add to previous draw Performed By: #### 2 5507, , 68277, 27381 #### [facility] [address] Erythrocyte distribution width Ratio (RBC) 14.4 % Normal 11.5-15.0 [facility] Comment on above: Order Comment: No: D o not add to previous draw Performed By: #### 2 5507, , 36309, 22775 #### [facility] [address] Hematocrit Volume Fraction (Bld) 39.8 % Normal 36.0-45.0 [facility] Comment on above: Order Comment: No: D o not add to previous draw Performed By: #### 2 5507, 14384, 93296, 47561 #### [facility] [address] [place] [address], [facility] Hemoglobin mass conc (Bld) 13.4 g/dL Normal 12.0-15.0 [facility] Comment on above: Order Comment: No: D o not add to previous draw Performed By: #### 2 5507, 69980, 39728, 39021 #### [facility] [address] [place] [address], [facility] IMMATURE GRANS 1.6 % High 0.0-1.0 [facility] Comment on above: Order Comment: No: D o not add to previous draw Performed By: #### 2 5507, 68690, 94724, 25866 #### [facility] [address] [place] [address], [facility] Lymphocytes #/vol (Bld) 1.7 10*3/uL Normal 1.2-4.0 [facility] Comment on above: Order Comment: No: D o not add to previous draw Performed By: #### 2 5507, 66693, 38891, 68352 #### [facility] [address] [place] [address], [facility] Lymphocytes/100 WBC (Bld) 22.3 % Normal 20.0-45.0 [facility] Comment on above: Order Comment: No: D o not add to previous draw Performed By: #### 2 5507, 07391, 18294, 41255 #### [facility] [address] MCH Entitic mass (RBC) 27.7 pg Normal 27.0-33.0 [facility] Comment on above: Order Comment: No: D o not add to previous draw Performed By: #### 2 5507, 08126, 38302, 38209 #### [facility] [address] MCHC mass conc (RBC) 33.7 g/dL Normal 32.0-35.0 [facility] Comment on above: Order Comment: No: D o not add to previous draw Performed By: #### 2 5507, 82983, 63609, 08936 #### [facility] [address] MCV Entitic volume (RBC) 82.4 fL Normal 82.0-98.0 [facility] Comment on above: Order Comment: No: D o not add to previous draw Performed By: #### 2 5507, 22751, 98045, 17822 #### [facility] [address] [place] [address], [facility] Monocytes #/vol (Bld) 0.7 10*3/uL Normal 0.1-1.0 [facility] Comment on above: Order Comment: No: D o not add to previous draw Performed By: #### 2 8, 77403, 84219, 82436 #### [facility] [address] [place] [address], [facility] MONOS 8.7 % Normal 5.0-12.0 [facility] Comment on above: Order Comment: No: D o not add to previous draw Performed By: #### 2 5508, 44289, 87341, 03508 #### [facility] [address] [place] [address], [facility] Neutrophils/100 WBC (Bld) 66.8 % Normal 40.0-72.0 [facility] Comment on above: Order Comment: No: D o not add to previous draw Performed By: #### 2 5508, 14056, 71805, 66965 #### [facility] [address] [place] [address], [facility] Nucleated RBC/100 WBC Ratio (Bld) 0 % Normal 0-0 [facility] Comment on above: Order Comment: No: D o not add to previous draw Performed By: #### 2 5508, 15850, 96568, 03008 #### [facility] [address] [place] [id number], [place] PLAT CNT 293 10*3/uL Normal 150-400 [facility] Comment on above: Order Comment: No: D o not add to previous draw Performed By: #### 2 5508, 82282, 05538, 44591 #### [facility] [address] [place] [id number], [facility] RBC #/vol (Bld) 4.83 10*6/uL Normal 3.80-5.00 [facility] Comment on above: Order Comment: No: D o not add to previous draw Performed By: #### 2 5508, 13003, 01313, 55170 #### [facility] [address] [place] [address], [place] WBC #/vol (Bld) 7.70 10*3/uL Normal 4.00-10.60 [facility] Comment on above: Order Comment: No: D o not add to previous draw Performed By: #### 2 5508, 49103, 67526, 81497 #### [facility] [address] [place], [place] [address] EEG Reporton 06-01-2018 EEG Report Name: Shabana Stallworth [facility] MR#: [id number] Age: 58 Physician: Colt Boggs M.D. 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 EEG DURATION: 23:33 and 0 [...] P Raghu Matson MD Date Dict: 05/31/2018/10:33 A/Raghu Matson MD Date Trans: 06/01/2018 05:26 A/luis e [id number] cc: Colt Boggs M.D. [address] [place] [id number] Normal [facility] MAGNESIUM BLOODon 06-01-2018 Magnesium mass conc 2.3 mg/dL Normal 1.9-2.7 [facility] Comment on above: Performed By: #### 2 5508, 09764, 02013, 88855 #### [facility] [address] [place] [address], [place] POC GLUCOSE LABon 06-01-2018 Glucose mass conc 332 mg/dL High 70-100 [facility] Comment on above: Performed By: #### 3 1018 #### [facility] [address] [place] [address], [place] Glucose mass conc 224 mg/dL High 70-100 [facility] Comment on above: Performed By: #### 3 1018 #### [facility] [address] [place] [address], [place] Glucose mass conc 156 mg/dL High 70-100 [facility] Comment on above: Performed By: #### 2 5508, 14726, 02592, 20375 #### [facility] [address] [place] [address], [place] Glucose mass conc 216 mg/dL High 70-100 [facility] Comment on above: Performed By: #### 2 5508, 45020, 75378, 10448 #### [facility] [address] *C DIFF DNA AMPLIFICATIONon 05-31-2018 *C DIFF DNA AMPLIFICATION Clinical Report: (D) Specimen: [id number] Collected: 05/31/2018 13:15 Status: Final Last Updated: 05/31/2018 17:23 (1) No: Do not add to previous draw CDT DNA: (Final) Negative Normal [facility] Comment on above: Order Comment: No: D o not add to previous draw Performed By: #### 2 5508, 74415, 76390, 33634 #### [facility] [address] [place] [address], [facility] BASIC METABOLIC PANELon 05-15 Calcium mass conc 9.0 mg/dL Normal 8.6-10.3 [facility] Comment on above: Order Comment: No: D o not add to previous draw Performed By: #### 2 5508, 27240, 85844, 98969 #### [facility] [address] [place] [address], [facility] Chloride molar conc 97 mmol/L Low 98-107 [facility] Comment on above: Order Comment: No: D o not add to previous draw Performed By: #### 2 5508, 19118, 95513, 59067 #### [facility] [address] [place] [address], [facility] CO2 molar conc 32 mmol/L High 21-31 [facility] Comment on above: Order Comment: No: D o not add to previous draw Performed By: #### 2 5508, 05913, 77094, 49036 #### [facility] [address] [place] [address], [facility] Creatinine mass conc 0.60 mg/dL Normal 0.60-1.20 [facility] Comment on above: Order Comment: No: D o not add to previous draw Performed By: #### 2 5508, 62502, 76884, 50166 #### [facility] [address] [place] [address], [place] GFR/1.73 sq M predicted among blacks MDRD vol rate/area (S/P/Bld) mL/min/{1.73_m2} Normal >60 [facility] Comment on above: Order Comment: No: D o not add to previous draw Performed By: #### 2 550, 58744, 39105, 63966 #### [facility] [address] [place] [address], [place] GFR/1.73 sq M predicted among non-blacks MDRD vol rate/area (S/P/Bld) mL/min/{1.73_m2} Normal >60 [facility] Comment on above: Order Comment: No: D o not add to previous draw Performed By: #### 2 550, 06702, 85999, 08285 #### [facility] [address] [place] [address], [facility] Glucose mass conc 114 mg/dL High 70-100 [facility] Comment on above: Order Comment: No: D o not add to previous draw Performed By: #### 2 550, 80951, 11789, 88556 #### [facility] [address] [place] [address], [place] Potassium molar conc 2.9 mmol/L Low 3.5-5.1 [facility] Comment on above: Order Comment: No: D o not add to previous draw Performed By: #### 2 5508, 41632, 72583, 61046 #### [facility] [address] [place] [address], [place] Sodium molar conc 140 mmol/L Normal 136-145 [facility] Comment on above: Order Comment: No: D o not add to previous draw Performed By: #### 2 5508, 19052, 56026, 22711 #### [facility] [address] [place] [address], [place] Urea nitrogen mass conc 12 mg/dL Normal 7-25 [facility] Comment on above: Order Comment: No: D o not add to previous draw Performed By: #### 2 5508, 82010, 30482, 40243 #### [facility] [address] CBC W/DIFFon 05-31-2018 ABS BASOPHILS 0.0 10*3/uL Normal 0.0-0.2 [facility] Comment on above: Order Comment: No: D o not add to previous draw Performed By: #### 2 5508, 19195, 19414, 19461 #### [facility] [address] [place] [address], [facility] ABS NEUTROPHILS 3.2 10*3/uL Normal 1.6-7.6 [facility] Comment on above: Order Comment: No: D o not add to previous draw Performed By: #### 2 5508, 64429, 60087, 28795 #### [facility] [address] Basophils #/vol (Bld) 0.0 % Normal 0.0-1.0 [facility] Comment on above: Order Comment: No: D o not add to previous draw Performed By: #### 2 5508, 63473, 24501, 30603 #### [facility] [facility] [address] [place] [address], [facility] Eosinophils #/vol (Bld) 0.0 10*3/uL Normal 0.0-0.5 [facility] Comment on above: Order Comment: No: D o not add to previous draw Performed By: #### 2 5508, 05565, 38403, 02387 #### [facility] [address] [facility] [place] [address], [facility] Eosinophils/100 WBC (Bld) 0.0 % Normal 0.0-6.0 [facility] Comment on above: Order Comment: No: D o not add to previous draw Performed By: #### 2 5508, 79839, 72609, 77211 #### [facility] [address] [place] [address], [facility] Erythrocyte distribution width Ratio (RBC) 14.2 % Normal 11.5-15.0 [facility] Comment on above: Order Comment: No: D o not add to previous draw Performed By: #### 2 5507, 84131, 29834, 57817 #### [facility] [address] [place] [address], [facility] GIANT PLATELETS Present Normal [facility] Comment on above: Order Comment: No: D o not add to previous draw Performed By: #### 2 5507, 17905, 36320, 18153 #### [facility] [address] [place] [address], [facility] Hematocrit Volume Fraction (Bld) 37.7 % Normal 36.0-45.0 [facility] Comment on above: Order Comment: No: D o not add to previous draw Performed By: #### 2 550, 93811, 60053, 14744 #### [facility] [address] [place] [address], [facility] Hemoglobin mass conc (Bld) 12.5 g/dL Normal 12.0-15.0 [facility] Comment on above: Order Comment: No: D o not add to previous draw Performed By: #### 2 550, 14652, 28918, 45866 #### [facility] [address] [place] [id number], [facility] Lymphocytes #/vol (Bld) 1.2 10*3/uL Normal 1.2-4.0 [facility] Comment on above: Order Comment: No: D o not add to previous draw Performed By: #### 2 550, 93580, 37199, 35786 #### [facility] [address] [place] [id number], [facility] Lymphocytes/100 WBC (Bld) 24.3 % Normal 20.0-45.0 [facility] Comment on above: Order Comment: No: D o not add to previous draw Performed By: #### 2 5507, 63922, 50717, 38002 #### [facility] [address] MCH Entitic mass (RBC) 27.7 pg Normal 27.0-33.0 [facility] Comment on above: Order Comment: No: D o not add to previous draw Performed By: #### 2 5507, , 79411, 34599 #### [facility] [address] MCHC mass conc (RBC) 33.2 g/dL Normal 32.0-35.0 [facility] Comment on above: Order Comment: No: D o not add to previous draw Performed By: #### 2 5507, , 98378, 28649 #### [facility] [address] MCV Entitic volume (RBC) 83.6 fL Normal 82.0-98.0 [facility] Comment on above: Order Comment: No: D o not add to previous draw Performed By: #### 2 5507, , 32137, 94948 #### [facility] [address] METAMYELO 0.9 % High 0.0-0.0 [facility] Comment on above: Order Comment: No: D o not add to previous draw Performed By: #### 2 5507, 96982, 13041, 59840 #### [facility] [address] Monocytes #/vol (Bld) 0.4 10*3/uL Normal 0.1-1.0 [facility] Comment on above: Order Comment: No: D o not add to previous draw Performed By: #### 2 5507, 95227, 21536, 21748 #### [facility] [address] [place] [address], [place] MONOS 7.5 % Normal 5.0-12.0 [facility] Comment on above: Order Comment: No: D o not add to previous draw Performed By: #### 2 5508, 89867, 13365, 91155 #### [facility] [address] [place] [address], [place] MYELOS 1.9 % High .0-.0 [facility] Comment on above: Order Comment: No: D o not add to previous draw Performed By: #### 2 8, 81920, 23158, 48826 #### [facility] [address] [place] [address], [facility] Neutrophils/100 WBC (Bld) 65.4 % Normal 40.0-72.0 [facility] Comment on above: Order Comment: No: D o not add to previous draw Performed By: #### 2 5507, 48802, 21838, 06755 #### [facility] [address] [place] [address], [facility] NRBC SCAN Present Normal [facility] Comment on above: Order Comment: No: D o not add to previous draw Performed By: #### 2 8, 51954, 92544, 92285 #### [facility] [address] [place] [address], [facility] Nucleated RBC/100 WBC Ratio (Bld) 0 % Normal 0-0 [facility] Comment on above: Order Comment: No: D o not add to previous draw Performed By: #### 2 8, 57388, 92778, 38695 #### [facility] [address] [place] [address], [place] PLAT CNT 284 10*3/uL Normal 150-400 [facility] Comment on above: Order Comment: No: D o not add to previous draw Performed By: #### 2 5507, 23450, 16200, 86419 #### [facility] [address] RBC #/vol (Bld) 4.51 10*6/uL Normal 3.80-5.00 [facility] Comment on above: Order Comment: No: D o not add to previous draw Performed By: #### 2 5508, 50769, 98267, 47675 #### [facility] [address] [place], [place] [address] WBC #/vol (Bld) 4.88 10*3/uL Normal 4.00-10.60 [facility] Comment on above: Order Comment: No: D o not add to previous draw Performed By: #### 2 5508, 68620, 88050, 57980 #### [facility] [address] EEG Reporton 05-31-2018 EEG Report Name: Shabana Stallworth [facility] MR#: [id number] Age: 58 Physician: Colt Boggs M.D. Date: From 6:30 on May 29, 2018, until 6:30 on May 30, 2018 Lab#: 7 Date of : 1960 Patient Type: I NEURODIAGNOSTIC SERVICES REPORT [address] [place] [id number] Board of the [place] [employer] Accredited feather cutting machine feeder: Jesse Muir. EEG DURATION: 23:45 and 28 [...] MD Date Trans: 05/31/2018 05:14 Dipak/luis e [id number] cc: Colt Boggs M.D. [address] [place] [phone] Normal [facility] MAGNESIUM BLOODon 05-31-2018 Magnesium mass conc 1.9 mg/dL Normal 1.9-2.7 [facility] Comment on above: Order Comment: No: D o not add to previous draw Performed By: #### 2 7688, 37906, 40029, 25365 #### [facility] [address] [facility] [place] [address], [facility] PHOSPHORUS BLOODon 9 Phosphate mass conc 4.0 mg/dL Normal 2.5-5.0 [facility] Comment on above: Order Comment: No: D o not add to previous draw Performed By: #### 2 5508, 83509, 78730, 84776 #### [facility] [address] [place] [address], [place] POC GLUCOSE LABon 05-31-2018 Glucose mass conc 274 mg/dL High 70-100 [facility] Comment on above: Performed By: #### 2 5508, 95105, 17152, 73018 #### [facility] [address] [place] [address], [place] Glucose mass conc 265 mg/dL High 70-100 [facility] Comment on above: Performed By: #### 2 5508, 77878, 01407, 34780 #### [facility] [address] [place] [address], [place] Glucose mass conc 118 mg/dL High 70-100 [facility] Comment on above: Performed By: #### 2 5507, 78786, 07142, 12656 #### [facility] [address] [place] [address], [place] Glucose mass conc 123 mg/dL High 70-100 [facility] Comment on above: Performed By: #### 2 8, 59292, 85927, 97515 #### [facility] [address] [place] [address], [place] ARTERIAL BLOOD GAS WITH ICAo n 05-30-2018 BASE EXCESS 5 mmol/L High -2-2 [facility] Comment on above: Performed By: #### 2 8, 77558, 95378, 73638 #### [facility] [address] [place] [address], [place] [employer] MV Normal [facility] Comment on above: Performed By: #### 2 8, 70873, 27552, 33406 #### [facility] [address] [place] [address], [place] FIO2 40 % Normal 21-100 [facility] Comment on above: Performed By: #### 2 5508, 73177, 82848, 39062 #### [facility] [address] [place] [address], [place] HCO3 molar conc (Bld) 30 mmol/L High 23-27 [facility] Comment on above: Performed By: #### 2 5507, 71024, 11962, 34233 #### [facility] [address] [place] [address], [place] IONIZED CALCIUM 1.21 mmol/L Normal 1.13-1.32 [facility] Comment on above: Performed By: #### 2 5507, 74358, 16468, 81990 #### [facility] [address] [place] [address], [place] MIN VOLUME 7.7 Normal [facility] Comment on above: Performed By: #### 2 5507, 06222, 48142, 81840 #### [facility] [address] [place] [address], [place] MODALITY AC Normal [facility] Comment on above: Performed By: #### 2 5507, 24074, 90731, 86298 #### [facility] [address] [place] [address], [place] Oxygen ppres (Bld) 88 mm[Hg] Normal 75-100 [facility] Comment on above: Performed By: #### 2 550, 11763, 23439, 17469 #### [facility] [address] [place] [address], [place] Oxygen saturation in Blood 95.4 % Normal 94.0-97.0 [facility] Comment on above: Performed By: #### 2 550, 81397, 43907, 42866 #### [facility] [address] [place] [address], [place] PCO2 43 mmHg Normal 35-45 [facility] Comment on above: Performed By: #### 2 5508, 12874, 99586, 05905 #### [facility] [address] [place] [address], [facility] PEEP 8.0 CMH20 Normal [facility] Comment on above: Performed By: #### 2 5508, 61619, 76803, 12813 #### [facility] [address] [place] [address], [place] PF RATIO 220 mmHg Normal 50-400 [facility] Comment on above: Performed By: #### 2 8, 58268, 43951, 93928 #### [facility] [address] [place] [address], [facility] pH (Bld) 7.45 [pH] Normal 7.35-7.45 [facility] Comment on above: Performed By: #### 2 550, 36431, 48702, 54832 #### [facility] [address] [place] [address], [facility] TIDAL VOLUME (VT) CC 400 Normal [facility] Comment on above: Performed By: #### 2 8, 41889, 52823, 34045 #### [facility] [address] [place] [address], [facility] BASIC METABOLIC PANELon 05-15 Calcium mass conc 8.5 mg/dL Low 8.6-10.3 [facility] Comment on above: Order Comment: No: D o not add to previous draw Performed By: #### 2 5508, 30213, 84469, 41198 #### [facility] [address] [place] [address], [place] Chloride molar conc 101 mmol/L Normal 98-107 [facility] Comment on above: Order Comment: No: D o not add to previous draw Performed By: #### 2 5508, 71380, 41534, 47028 #### [facility] [address] [place] [address], [place] CO2 molar conc 28 mmol/L Normal 21-31 [facility] Comment on above: Order Comment: No: D o not add to previous draw Performed By: #### 2 5508, 78839, 11816, 95434 #### [facility] [address] [place] [address], [place] Creatinine mass conc 0.59 mg/dL Low 0.60-1.20 [facility] Comment on above: Order Comment: No: D o not add to previous draw Performed By: #### 2 5508, 84486, 18287, 75905 #### [facility] [address] [place] [address], [place] GFR/1.73 sq M predicted among blacks MDRD vol rate/area (S/P/Bld) mL/min/{1.73_m2} Normal >60 [facility] Comment on above: Order Comment: No: D o not add to previous draw Performed By: #### 2 5508, 41754, 10034, 17683 #### [facility] [address] [place] [address], [place] GFR/1.73 sq M predicted among non-blacks MDRD vol rate/area (S/P/Bld) mL/min/{1.73_m2} Normal >60 [facility] Comment on above: Order Comment: No: D o not add to previous draw Performed By: #### 2 5508, 82460, 37143, 74911 #### [facility] [address] [place] [address], [place] Glucose mass conc 239 mg/dL High 70-100 [facility] Comment on above: Order Comment: No: D o not add to previous draw Performed By: #### 2 5508, 13381, 86298, 77623 #### [facility] [address] [place] [address], [place] Potassium molar conc 3.6 mmol/L Normal 3.5-5.1 [facility] Comment on above: Order Comment: No: D o not add to previous draw Performed By: #### 2 5508, 84174, 83073, 04430 #### [facility] [address] Sodium molar conc 136 mmol/L Normal 136-145 [facility] Comment on above: Order Comment: No: D o not add to previous draw Performed By: #### 2 8, 40020, 41658, 16127 #### [facility] [address] Urea nitrogen mass conc 20 mg/dL Normal 7-25 [facility] Comment on above: Order Comment: No: D o not add to previous draw Performed By: #### 2 8, 00610, 32984, 22849 #### [facility] [address] [facility] CBC W/DIFFon 05-30-2018 ABS BASOPHILS 0.0 10*3/uL Normal 0.0-0.2 [facility] Comment on above: Order Comment: No: D o not add to previous draw Performed By: #### 2 5508, 00546, 57808, 97941 #### [facility] [address] [facility]. [address] ABS IMM GRANS 0.2 10*3/uL Normal 0.0-0.2 [facility] Comment on above: Order Comment: No: D o not add to previous draw Performed By: #### 2 5508, 04700, 85337, 76713 #### [facility] [address] [facility] ABS NEUTROPHILS 2.5 10*3/uL Normal 1.6-7.6 [facility] Comment on above: Order Comment: No: D o not add to previous draw Performed By: #### 2 5508, 86473, 86477, 33568 #### [facility] [address] [place] [address], [place] Basophils #/vol (Bld) 0.5 % Normal 0.0-1.0 [facility] Comment on above: Order Comment: No: D o not add to previous draw Performed By: #### 2 5507, 76724, 26544, 54606 #### [facility] [address] [place] [address], [facility] Eosinophils #/vol (Bld) 0.0 10*3/uL Normal 0.0-0.5 [facility] Comment on above: Order Comment: No: D o not add to previous draw Performed By: #### 2 5507, 97095, 72799, 89069 #### [facility] [address] [place] [id number], [facility] Eosinophils/100 WBC (Bld) 0.0 % Normal 0.0-6.0 [facility] Comment on above: Order Comment: No: D o not add to previous draw Performed By: #### 2 5507, 69411, 22245, 31433 #### [facility] [address] Erythrocyte distribution width Ratio (RBC) 13.9 % Normal 11.5-15.0 [facility] Comment on above: Order Comment: No: D o not add to previous draw Performed By: #### 2 5507, 71256, 16340, 80246 #### [facility] [address] Hematocrit Volume Fraction (Bld) 34.3 % Low 36.0-45.0 [facility] Comment on above: Order Comment: No: D o not add to previous draw Performed By: #### 2 5507, 85220, 61721, 49053 #### [facility] [address] [place] [id number], [facility] Hemoglobin mass conc (Bld) 11.3 g/dL Low 12.0-15.0 [facility] Comment on above: Order Comment: No: D o not add to previous draw Performed By: #### 2 5507, 96479, 23867, 99620 #### [facility] [address] [place] [address], [facility] IMMATURE GRANS 3.6 % High 0.0-1.0 [facility] Comment on above: Order Comment: No: D o not add to previous draw Performed By: #### 2 5507, 51455, 98818, 38800 #### [facility] [address] [place] [address], [facility] Lymphocytes #/vol (Bld) 1.2 10*3/uL Normal 1.2-4.0 [facility] Comment on above: Order Comment: No: D o not add to previous draw Performed By: #### 2 5507, 40827, 22882, 45459 #### [facility] [address] [place] [id number], [facility] Lymphocytes/100 WBC (Bld) 29.0 % Normal 20.0-45.0 [facility] Comment on above: Order Comment: No: D o not add to previous draw Performed By: #### 2 5507, 11557, 85206, 66094 #### [facility] [address] [place] [address], [facility] MCH Entitic mass (RBC) 28.0 pg Normal 27.0-33.0 [facility] Comment on above: Order Comment: No: D o not add to previous draw Performed By: #### 2 5507, 43992, 38418, 13804 #### [facility] [address] [place] [address], [facility] MCHC mass conc (RBC) 32.9 g/dL Normal 32.0-35.0 [facility] Comment on above: Order Comment: No: D o not add to previous draw Performed By: #### 2 5507, 35613, 60439, 73907 #### [facility] [address] [place] [id number], [facility] MCV Entitic volume (RBC) 85.1 fL Normal 82.0-98.0 [facility] Comment on above: Order Comment: No: D o not add to previous draw Performed By: #### 2 8, 64408, 90800, 81832 #### [facility] [address] [place] [address], [facility] Monocytes #/vol (Bld) 0.3 10*3/uL Normal 0.1-1.0 [facility] Comment on above: Order Comment: No: D o not add to previous draw Performed By: #### 2 5507, 26760, 86715, 98597 #### [facility] [address] [place] [address], [facility] MONOS 6.9 % Normal 5.0-12.0 [facility] Comment on above: Order Comment: No: D o not add to previous draw Performed By: #### 2 5507, 96221, 99860, 40620 #### [facility] [address] [place] [address], [facility] Neutrophils/100 WBC (Bld) 60.0 % Normal 40.0-72.0 [facility] Comment on above: Order Comment: No: D o not add to previous draw Performed By: #### 2 5507, 62731, 65436, 87257 #### [facility] [address] [place] [address], [facility] Nucleated RBC/100 WBC Ratio (Bld) 0 % Normal 0-0 [facility] Comment on above: Order Comment: No: D o not add to previous draw Performed By: #### 2 550, 06996, 14106, 29347 #### [facility] [address] [place] [address], [facility] PLAT CNT 250 10*3/uL Normal 150-400 [facility] Comment on above: Order Comment: No: D o not add to previous draw Performed By: #### 2 550, 47189, 42081, 25851 #### [facility] [address] RBC #/vol (Bld) 4.03 10*6/uL Normal 3.80-5.00 [facility] Comment on above: Order Comment: No: D o not add to previous draw Performed By: #### 2 5508, 32188, 70411, 17633 #### [facility] [address] [place], [place] [address] WBC #/vol (Bld) 4.20 10*3/uL Normal 4.00-10.60 [facility] Comment on above: Order Comment: No: D o not add to previous draw Performed By: #### 2 5508, 98932, 80034, 72220 #### [facility] [address] EEG Reporton 05-30-2018 EEG Report Name: Shabana Stallworth [facility] MR#: [id number] Age: 58 Physician: Colt Boggs M.D. 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 EEG DURATION: 23:53:41. CLINICAL HISTORY: [...] MD Date Trans: 05/30/2018 05:46 A/luis e [id number] cc: Colt Boggs M.D. [address] [place] [phone] Normal [facility] MAGNESIUM BLOODon 05-30-2018 Magnesium mass conc 1.8 mg/dL Low 1.9-2.7 [facility] Comment on above: Order Comment: No: D o not add to previous draw Performed By: #### 2 5508, 64546, 64069, 26242 #### [facility] [address] [place] [address], [facility] PHOSPHORUS BLOODon 9 Phosphate mass conc 2.0 mg/dL Low 2.5-5.0 [facility] Comment on above: Order Comment: No: D o not add to previous draw Performed By: #### 2 5508, 11342, 59688, 42344 #### [facility] [address] [place] [address], [place] POC GLUCOSE LABon 05-30-2018 Glucose mass conc 297 mg/dL High 70-100 [facility] Comment on above: Performed By: #### 2 5508, 47758, 44421, 48146 #### [facility] [address] [place] [address], [place] Glucose mass conc 176 mg/dL High 70-100 [facility] Comment on above: Performed By: #### 2 5508, 30134, 95903, 31370 #### [facility] [address] [place] [address], [place] BASIC METABOLIC PANELon 05-15 Calcium mass conc 8.7 mg/dL Normal 8.6-10.3 [facility] Comment on above: Order Comment: No: D o not add to previous draw Performed By: #### 2 5508, 41797, 76934, 49875 #### [facility] [address] [place] [address], [place] Chloride molar conc 103 mmol/L Normal 98-107 [facility] Comment on above: Order Comment: No: D o not add to previous draw Performed By: #### 2 5508, 35897, 44202, 51504 #### [facility] [address] [place] [address], [place] CO2 molar conc 26 mmol/L Normal 21-31 [facility] Comment on above: Order Comment: No: D o not add to previous draw Performed By: #### 2 5508, 44825, 56973, 74981 #### [facility] [address] [place] [address], [place] Creatinine mass conc 0.56 mg/dL Low 0.60-1.20 [facility] Comment on above: Order Comment: No: D o not add to previous draw Performed By: #### 2 5508, 80533, 22737, 61904 #### [facility] [address] [place] [address], [place] GFR/1.73 sq M predicted among blacks MDRD vol rate/area (S/P/Bld) mL/min/{1.73_m2} Normal >60 [facility] Comment on above: Order Comment: No: D o not add to previous draw Performed By: #### 2 5508, 27995, 50311, 28624 #### [facility] [address] [place] [address], [place] GFR/1.73 sq M predicted among non-blacks MDRD vol rate/area (S/P/Bld) mL/min/{1.73_m2} Normal >60 [facility] Comment on above: Order Comment: No: D o not add to previous draw Performed By: #### 2 5508, 50677, 00014, 10690 #### [facility] [address] [place] [address], [place] Glucose mass conc 263 mg/dL High 70-100 [facility] Comment on above: Order Comment: No: D o not add to previous draw Performed By: #### 2 5508, 78670, 89219, 43135 #### [facility] [address] [place] [address], [place] Potassium molar conc 4.1 mmol/L Normal 3.5-5.1 [facility] Comment on above: Order Comment: No: D o not add to previous draw Performed By: #### 2 5508, 60162, 47116, 71096 #### [facility] [address] [place] [address], [place] Sodium molar conc 135 mmol/L Low 136-145 [facility] Comment on above: Order Comment: No: D o not add to previous draw Performed By: #### 2 5508, 26930, 50405, 29630 #### [facility] [address] [place] [address], [place] Urea nitrogen mass conc 20 mg/dL Normal 7-25 [facility] Comment on above: Order Comment: No: D o not add to previous draw Performed By: #### 2 5508, 14746, 98737, 20928 #### [facility] [address] CBC COMPLETE BLOOD COUNTon 0 - Erythrocyte distribution width Ratio (RBC) 13.7 % Normal 11.5-15.0 [facility] Comment on above: Order Comment: No: D o not add to previous draw Performed By: #### 2 8, 15227, 39853, 22618 #### [facility] [address] Hematocrit Volume Fraction (Bld) 34.0 % Low 36.0-45.0 [facility] Comment on above: Order Comment: No: D o not add to previous draw Performed By: #### 2 5507, 50923, 17675, 42083 #### [facility] [address] Hemoglobin mass conc (Bld) 11.2 g/dL Low 12.0-15.0 [facility] Comment on above: Order Comment: No: D o not add to previous draw Performed By: #### 2 5507, 88754, 87026, 44814 #### [facility] [address] [place] [address], [facility] MCH Entitic mass (RBC) 27.6 pg Normal 27.0-33.0 [facility] Comment on above: Order Comment: No: D o not add to previous draw Performed By: #### 2 5508, 56927, 80977, 82289 #### [facility] [address] [place] [address], [facility] MCHC mass conc (RBC) 32.9 g/dL Normal 32.0-35.0 [facility] Comment on above: Order Comment: No: D o not add to previous draw Performed By: #### 2 550, 53552, 96107, 11963 #### [facility] [address] [place] [address], [facility] MCV Entitic volume (RBC) 83.7 fL Normal 82.0-98.0 [facility] Comment on above: Order Comment: No: D o not add to previous draw Performed By: #### 2 5508, 65663, 44231, 49861 #### [facility] [address] [place] [address], [facility] Nucleated RBC/100 WBC Ratio (Bld) 0 % Normal 0-0 [facility] Comment on above: Order Comment: No: D o not add to previous draw Performed By: #### 2 5508, 05053, 83690, 01096 #### [facility] [address] [place] [address], [facility] PLAT CNT 237 10*3/uL Normal 150-400 [facility] Comment on above: Order Comment: No: D o not add to previous draw Performed By: #### 2 5508, 78701, 81431, 17100 #### [facility] [address] [place] [address], [facility] RBC #/vol (Bld) 4.06 10*6/uL Normal 3.80-5.00 [facility] Comment on above: Order Comment: No: D o not add to previous draw Performed By: #### 2 5508, 54087, 63365, 45864 #### [facility] [address] [place] [address], [facility] WBC #/vol (Bld) 3.83 10*3/uL Low 4.00-10.60 [facility] Comment on above: Order Comment: No: D o not add to previous draw Performed By: #### 2 5508, 11902, 27697, 68309 #### [facility] [address] [place] [address], [facility] EEG Reporton 05-29-2018 EEG Report Name: Shabana Stallworth [facility] MR#: [id number] Age: 58 Physician: Colt Boggs M.D. Date: From 0630 hours on May 27, 2018, until 0630 hours on May 28, 2018. Lab#: Date of : 1960 Patient Type: I NEURODIAGNOSTIC SERVICES REPORT [address], [place] [address] Board of the [place] [employer] Accredited feather cutting machine feeder: Jesse Muir. EEG DURATION: 23:57 and 28 [...] P Raghu Matson MD Date Dict: 05/28/2018/12:01 Aydee/Raghu Matson MD Date Trans: 05/29/2018 08:51 Dipak/luis e [id number] cc: Colt Boggs M.D. [address] [place] [address] B [facility] [address] Normal [facility] MAGNESIUM BLOODon 05-29-2018 Magnesium mass conc 1.9 mg/dL Normal 1.9-2.7 [facility] Comment on above: Order Comment: No: D o not add to previous draw Performed By: #### 2 5508, 99994, 92051, 67055 #### [facility] [address] [place] [address], [facility] PHOSPHORUS BLOODon 9 Phosphate mass conc 2.0 mg/dL Low 2.5-5.0 [facility] Comment on above: Order Comment: No: D o not add to previous draw Performed By: #### 2 5508, 74278, 83669, 73413 #### [facility] [address] [place] [address], [place] BASIC METABOLIC PANELon 05-15 Calcium mass conc 8.5 mg/dL Low 8.6-10.3 [facility] Comment on above: Order Comment: No: D o not add to previous draw Performed By: #### 2 5508, 36480, 64538, 52454 #### [facility] [address] [place] [address], [place] Chloride molar conc 107 mmol/L Normal 98-107 [facility] Comment on above: Order Comment: No: D o not add to previous draw Performed By: #### 2 5508, 46437, 20762, 97334 #### [facility] [address] [place] [address], [place] CO2 molar conc 22 mmol/L Normal 21-31 [facility] Comment on above: Order Comment: No: D o not add to previous draw Performed By: #### 2 5508, 27427, 81277, 72164 #### [facility] [address] [place] [address], [facility] Creatinine mass conc 0.54 mg/dL Low 0.60-1.20 [facility] Comment on above: Order Comment: No: D o not add to previous draw Performed By: #### 2 5508, 95138, 14080, 57542 #### [facility] [address] [place] [address], [facility] GFR/1.73 sq M predicted among blacks MDRD vol rate/area (S/P/Bld) mL/min/{1.73_m2} Normal >60 [facility] Comment on above: Order Comment: No: D o not add to previous draw Performed By: #### 2 5507, 71081, 55437, 77814 #### [facility] [address] [place] [address], [facility] GFR/1.73 sq M predicted among non-blacks MDRD vol rate/area (S/P/Bld) mL/min/{1.73_m2} Normal >60 [facility] Comment on above: Order Comment: No: D o not add to previous draw Performed By: #### 2 550, 21105, 20384, 19465 #### [facility] [address] [place] [address], [facility] Glucose mass conc 161 mg/dL High 70-100 [facility] Comment on above: Order Comment: No: D o not add to previous draw Performed By: #### 2 5508, 62818, 84848, 67936 #### [facility] [address] [place] [address], [place] Potassium molar conc 3.9 mmol/L Normal 3.5-5.1 [facility] Comment on above: Order Comment: No: D o not add to previous draw Performed By: #### 2 550, 97063, 92274, 35350 #### [facility] [address] [place] [address], [facility] Sodium molar conc 137 mmol/L Normal 136-145 [facility] Comment on above: Order Comment: No: D o not add to previous draw Performed By: #### 2 5508, 92397, 35396, 94436 #### [facility] [address] [place] [address], [facility] Urea nitrogen mass conc 15 mg/dL Normal 7-25 [facility] Comment on above: Order Comment: No: D o not add to previous draw Performed By: #### 2 5508, 93265, 21483, 97526 #### [facility] [address] [place] [address], [facility] CBC COMPLETE BLOOD COUNTon 0 05-28-2018 Erythrocyte distribution width Ratio (RBC) 13.9 % Normal 11.5-15.0 [facility] Comment on above: Order Comment: No: D o not add to previous draw Performed By: #### 2 5508, 43790, 72086, 25588 #### [facility] [address] [place] [id number], [facility] Hematocrit Volume Fraction (Bld) 32.2 % Low 36.0-45.0 [facility] Comment on above: Order Comment: No: D o not add to previous draw Performed By: #### 2 5508, 00598, 91385, 81627 #### [facility] [address] [place] [address], [facility] Hemoglobin mass conc (Bld) 10.4 g/dL Low 12.0-15.0 [facility] Comment on above: Order Comment: No: D o not add to previous draw Performed By: #### 2 5508, 59919, 43972, 06954 #### [facility] [address] [place] [address], [place] MCH Entitic mass (RBC) 27.6 pg Normal 27.0-33.0 [facility] Comment on above: Order Comment: No: D o not add to previous draw Performed By: #### 2 5508, 44592, 46465, 19872 #### [facility] [address] [place] [address], [facility] MCHC mass conc (RBC) 32.3 g/dL Normal 32.0-35.0 [facility] Comment on above: Order Comment: No: D o not add to previous draw Performed By: #### 2 8, 37420, 30811, 07739 #### [facility] [address] [place] [id number], [facility] MCV Entitic volume (RBC) 85.4 fL Normal 82.0-98.0 [facility] Comment on above: Order Comment: No: D o not add to previous draw Performed By: #### 2 5507, 32411, 48986, 11776 #### [facility] [address] Nucleated RBC/100 WBC Ratio (Bld) 0 % Normal 0-0 [facility] Comment on above: Order Comment: No: D o not add to previous draw Performed By: #### 2 5508, 54091, 46298, 33597 #### [facility] [address] [place] [address], [facility] PLAT CNT 241 10*3/uL Normal 150-400 [facility] Comment on above: Order Comment: No: D o not add to previous draw Performed By: #### 2 550, 57183, 78348, 03906 #### [facility] [address] [place] [id number], [facility] RBC #/vol (Bld) 3.77 10*6/uL Low 3.80-5.00 [facility] Comment on above: Order Comment: No: D o not add to previous draw Performed By: #### 2 550, 41710, 10101, 41458 #### [facility] [address] [place] [id number], [facility] WBC #/vol (Bld) 3.77 10*3/uL Low 4.00-10.60 [facility] Comment on above: Order Comment: No: D o not add to previous draw Performed By: #### 2 5508, 63526, 01710, 69428 #### [facility] [address] [place] [address], [facility] CORTISOLon 05-28-2018 CORTISOL 2.6 mcg/dL Normal [facility] Comment on above: Order Comment: No: D o not add to previous draw Result Comment: Refe rence Range: AM 6.0-23.0 mcg/dL PM 0.0-9.0 mcg/dL Performed By: #### 2 5508, 69768, 93432, 94516 #### [facility] [address] [place] [address], [facility] MAGNESIUM BLOODon 05-28-2018 Magnesium mass conc 1.8 mg/dL Low 1.9-2.7 [facility] Comment on above: Order Comment: No: D o not add to previous draw Performed By: #### 2 5508, 20766, 16757, 41493 #### [facility] [address] [place] [address], [facility] PHOSPHORUS BLOODon 9 Phosphate mass conc 3.0 mg/dL Normal 2.5-5.0 [facility] Comment on above: Order Comment: No: D o not add to previous draw Performed By: #### 2 5508, 08184, 46274, 88180 #### [facility] [address] [place] [address], [facility] THYROGLOBULIN AB [id number] Thyroglobulin Ab Qn [IU]/mL Normal 0.0-4.0 [facility] Comment on above: Order Comment: No: D o not add to previous draw Result Comment: INTE RPRETIVE INFORMATION: Thyroglobulin Antibody A value of 4.0 IU/mL or less indicates a negative result for thyroglobulin antibodies. The Thyroglobulin Antibody assay is being performed using the [employer] Access DxI method. Performed by [facility], [address] [place] [address] [email or web address], Jack Torres MD - Lab. Director ARTERIAL BLOOD GAS WITH ICAo n 05-27-2018 BASE EXCESS -5 mmol/L Low -2-2 [facility] Comment on above: Performed By: #### 2 5507, 03430, 55434, 57791 #### [facility] [address] [place] [id number], [facility] [employer] MV Normal [facility] Comment on above: Performed By: #### 2 5507, 42177, 37398, 25895 #### [facility] [address] [place] [address], [place] FIO2 40 % Normal 21-100 [facility] Comment on above: Performed By: #### 2 5507, 37005, 13062, 38946 #### [facility] [address] [place] [address], [facility] HCO3 molar conc (Bld) 21 mmol/L Low 23-27 [facility] Comment on above: Performed By: #### 2 5507, 96445, 59457, 15165 #### [facility] [address] [place] [address], [place] IONIZED CALCIUM 1.25 mmol/L Normal 1.13-1.32 [facility] Comment on above: Performed By: #### 2 5507, 68903, 62222, 32818 #### [facility] [address] [place] [address], [place] MIN VOLUME 6.1 Normal [facility] Comment on above: Performed By: #### 2 5507, 29671, 11998, 23520 #### [facility] [address] [place] [address], [place] MODALITY AC Normal [facility] Comment on above: Performed By: #### 2 5507, 34357, 55425, 60518 #### [facility] [address] [place] [id number], [facility] Oxygen ppres (Bld) 135 mm[Hg] Critically high 75-100 T [facility] Comment on above: Performed By: #### 2 5508, 71186, 74518, 49076 #### [facility] [address] [place] [address], [facility] Oxygen saturation in Blood 95.5 % Normal 94.0-97.0 [facility] Comment on above: Performed By: #### 2 5508, 86277, 36020, 58600 #### [facility] [address] [place] [id number], [facility] PCO2 43 mmHg Normal 35-45 [facility] Comment on above: Performed By: #### 2 550, 99012, 96422, 85286 #### [facility] [address] [place] [address], [facility] PEEP 8.0 CMH20 Normal [facility] Comment on above: Performed By: #### 2 5508, 18589, 60387, 89802 #### [facility] [address] [place] [id number], [facility] pH (Bld) 7.30 [pH] Low 7.35-7.45 [facility] Comment on above: Performed By: #### 2 5508, 57898, 03591, 46763 #### [facility] [address] [place] [id number], [facility] TIDAL VOLUME (VT) CC 400 Normal [facility] Comment on above: Performed By: #### 2 5508, 80019, 98093, 46110 #### [facility] [address] [place] [id number], [facility] BASIC METABOLIC PANELon - Calcium mass conc 8.1 mg/dL Low 8.6-10.3 [facility] Comment on above: Order Comment: No: D o not add to previous draw Performed By: #### 2 5508, 36120, 33233, 15648 #### [facility] [address] [place] [address], [place] Chloride molar conc 109 mmol/L High 98-107 [facility] Comment on above: Order Comment: No: D o not add to previous draw Performed By: #### 2 5508, 37060, 52370, 16637 #### [facility] [address] [place] [address], [place] CO2 molar conc 23 mmol/L Normal 21-31 [facility] Comment on above: Order Comment: No: D o not add to previous draw Performed By: #### 2 5508, 99929, 01820, 85252 #### [facility] [address] [place] [address], [place] Creatinine mass conc 0.63 mg/dL Normal 0.60-1.20 [facility] Comment on above: Order Comment: No: D o not add to previous draw Performed By: #### 2 5508, 75421, 13489, 94714 #### [facility] [address] [place] [address], [place] GFR/1.73 sq M predicted among blacks MDRD vol rate/area (S/P/Bld) mL/min/{1.73_m2} Normal >60 [facility] Comment on above: Order Comment: No: D o not add to previous draw Performed By: #### 2 5508, 84798, 66391, 45034 #### [facility] [address] [place] [address], [place] GFR/1.73 sq M predicted among non-blacks MDRD vol rate/area (S/P/Bld) mL/min/{1.73_m2} Normal >60 [facility] Comment on above: Order Comment: No: D o not add to previous draw Performed By: #### 2 5508, 86847, 65265, 15412 #### [facility] [address] [place] [address], [facility] Glucose mass conc 87 mg/dL Normal 70-100 [facility] Comment on above: Order Comment: No: D o not add to previous draw Performed By: #### 2 5508, 29846, 90163, 08492 #### [facility] [address] [place] [address], [place] Potassium molar conc 3.7 mmol/L Normal 3.5-5.1 [facility] Comment on above: Order Comment: No: D o not add to previous draw Performed By: #### 2 5508, 53969, 88087, 35433 #### [facility] [address] [place] [address], [facility] Sodium molar conc 140 mmol/L Normal 136-145 [facility] Comment on above: Order Comment: No: D o not add to previous draw Performed By: #### 2 5507, 85377, 31049, 37634 #### [facility] [address] [place] [id number], [facility] Urea nitrogen mass conc 8 mg/dL Normal 7-25 [facility] Comment on above: Order Comment: No: D o not add to previous draw Performed By: #### 2 5508, 53129, 05420, 17003 #### [facility] [address] [place] [address], [facility] CBC COMPLETE BLOOD COUNTon 0 - Erythrocyte distribution width Ratio (RBC) 14.1 % Normal 11.5-15.0 [facility] Comment on above: Order Comment: No: D o not add to previous draw Performed By: #### 2 5508, 93761, 66366, 83753 #### [facility] [address] [place] [address], [facility] Hematocrit Volume Fraction (Bld) 32.7 % Low 36.0-45.0 [facility] Comment on above: Order Comment: No: D o not add to previous draw Performed By: #### 2 550, 75021, 04070, 48827 #### [facility] [address] [place] [address] Hemoglobin mass conc (Bld) 10.6 g/dL Low 12.0-15.0 [facility] Comment on above: Order Comment: No: D o not add to previous draw Performed By: #### 2 550, 63739, 59894, 33813 #### [facility] [address] [place] [address], [facility] MCH Entitic mass (RBC) 28.0 pg Normal 27.0-33.0 [facility] Comment on above: Order Comment: No: D o not add to previous draw Performed By: #### 2 5507, 13559, 09110, 05354 #### [facility] [address] MCHC mass conc (RBC) 32.4 g/dL Normal 32.0-35.0 [facility] Comment on above: Order Comment: No: D o not add to previous draw Performed By: #### 2 550, 71394, 90667, 50770 #### [facility] [address] [place] [address], [facility] MCV Entitic volume (RBC) 86.5 fL Normal 82.0-98.0 [facility] Comment on above: Order Comment: No: D o not add to previous draw Performed By: #### 2 550, 91143, 37575, 93714 #### [facility] [address] [place] [address], [facility] Nucleated RBC/100 WBC Ratio (Bld) 0 % Normal 0-0 [facility] Comment on above: Order Comment: No: D o not add to previous draw Performed By: #### 2 550, 40018, 28404, 17622 #### [facility] [address] [place] [id number], [facility] PLAT CNT 207 10*3/uL Normal 150-400 [facility] Comment on above: Order Comment: No: D o not add to previous draw Performed By: #### 2 5508, 01214, 89339, 82710 #### [facility] [address] [place] [address], [facility] RBC #/vol (Bld) 3.78 10*6/uL Low 3.80-5.00 [facility] Comment on above: Order Comment: No: D o not add to previous draw Performed By: #### 2 5508, 61342, 75123, 87788 #### [facility] [address] [place] [address], [facility] WBC #/vol (Bld) 3.84 10*3/uL Low 4.00-10.60 [facility] Comment on above: Order Comment: No: D o not add to previous draw Performed By: #### 2 5508, 45507, 85798, 72711 #### [facility] [address] [place] [address] EEG Reporton 05-27-2018 EEG Report Name: Shabana Stallworth [facility] MR#: [id number] Age: 58 Physician: Colt Boggs M.D. 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 EEG DURATION: 23:57 and 13 [...] Matson MD Date Trans: 05/27/2018 08:32 P/mmo [id number] cc: Colt Boggs M.D. [address] [place] [id number] [place] [facility] EEG Report Name: Shabana Stallworth [facility] MR#: [id number] Age: 58 Physician: Colt Boggs M.D. 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 EEG DURATION: 23:57:32. CLINICAL HISTORY: [...] MD Date Trans: 05/27/2018 07:09 Dipak/luis e [id number] cc: Colt Boggs M.D. [address] [place] [address] B [facility] [id number] Normal [facility] MAGNESIUM BLOODon 05-27-2018 Magnesium mass conc 1.7 mg/dL Low 1.9-2.7 [facility] Comment on above: Order Comment: No: D o not add to previous draw Performed By: #### 2 5508, 18400, 91529, 64435 #### [facility] [address] [place] [address], [facility] PHOSPHORUS BLOODon 9 Phosphate mass conc 3.0 mg/dL Normal 2.5-5.0 [facility] Comment on above: Order Comment: No: D o not add to previous draw Performed By: #### 2 5508, 65760, 52187, 47286 #### [facility] [address] [place] [address], [facility] ARTERIAL BLOOD GAS WITH ICAo n 05-26-2018 BASE EXCESS -3 mmol/L Low -2-2 [facility] Comment on above: Performed By: #### 8 5123 #### [facility] [address] [place] [address], [facility] DELIVERY SYSTEMS MV Normal [facility] Comment on above: Performed By: #### 8 5123 #### [facility] [address] [place] [address], [facility] FIO2 40 % Normal 21-100 [facility] Comment on above: Performed By: #### 8 5123 #### [facility] [address] [place] [address], [facility] HCO3 molar conc (Bld) 22 mmol/L Low 23-27 [facility] Comment on above: Performed By: #### 8 5123 #### [facility] [address] [place] [address], [facility] IONIZED CALCIUM 1.19 mmol/L Normal 1.13-1.32 [facility] Comment on above: Performed By: #### 8 5123 #### [facility] [address] [place] [address], [place] MIN VOLUME 6.1 Normal [facility] Comment on above: Performed By: #### 8 5123 #### [facility] [address] [place] [address], [facility] MODALITY AC Normal [facility] Comment on above: Performed By: #### 8 5123 #### [facility] [address] [place] [address], [place] Oxygen ppres (Bld) 162 mm[Hg] Critically high 75-100 T [facility] Comment on above: Performed By: #### 8 5123 #### [facility] [address] [place] [address], [facility] Oxygen saturation in Blood 96.4 % Normal 94.0-97.0 [facility] Comment on above: Performed By: #### 8 5123 #### [facility] [address] [place] [address], [place] PCO2 40 mmHg Normal 35-45 [facility] Comment on above: Performed By: #### 8 5123 #### [facility] [address] [place] [address], [place] PEEP 8.0 CMH20 Normal [facility] Comment on above: Performed By: #### 8 5123 #### [facility] [address] [place] [address], [place] pH (Bld) 7.35 [pH] Normal 7.35-7.45 [facility] Comment on above: Performed By: #### 8 5123 #### [facility] [address] [place] [address], [facility] TIDAL VOLUME (VT) CC 400 Normal [facility] Comment on above: Performed By: #### 8 5123 #### [facility] [address] [place] [address], [facility] BASIC METABOLIC PANELon 05-15 Calcium mass conc 7.8 mg/dL Low 8.6-10.3 [facility] Comment on above: Order Comment: No: D o not add to previous draw Performed By: #### 8 5123 #### [facility] [address] [place] [address], [place] Chloride molar conc 110 mmol/L High 98-107 [facility] Comment on above: Order Comment: No: D o not add to previous draw Performed By: #### 8 5123 #### [facility] [address] [place] [address], [place] CO2 molar conc 22 mmol/L Normal 21-31 [facility] Comment on above: Order Comment: No: D o not add to previous draw Performed By: #### 8 5123 #### [facility] [address] [place] [address], [place] Creatinine mass conc 0.60 mg/dL Normal 0.60-1.20 [facility] Comment on above: Order Comment: No: D o not add to previous draw Performed By: #### 8 5123 #### [facility] [address] [place] [address], [place] GFR/1.73 sq M predicted among blacks MDRD vol rate/area (S/P/Bld) mL/min/{1.73_m2} Normal >60 [facility] Comment on above: Order Comment: No: D o not add to previous draw Performed By: #### 8 5123 #### [facility] [address] [place] [address], [place] GFR/1.73 sq M predicted among non-blacks MDRD vol rate/area (S/P/Bld) mL/min/{1.73_m2} Normal >60 [facility] Comment on above: Order Comment: No: D o not add to previous draw Performed By: #### 8 5123 #### [facility] [address] [place] [address], [place] Glucose mass conc 85 mg/dL Normal 70-100 [facility] Comment on above: Order Comment: No: D o not add to previous draw Performed By: #### 8 5123 #### [facility] [address] Potassium molar conc 3.8 mmol/L Normal 3.5-5.1 [facility] Comment on above: Order Comment: No: D o not add to previous draw Performed By: #### 8 5123 #### [facility] [address] Sodium molar conc 141 mmol/L Normal 136-145 [facility] Comment on above: Order Comment: No: D o not add to previous draw Performed By: #### 8 5123 #### [facility] [address] Urea nitrogen mass conc 7 mg/dL Normal 7-25 [facility] Comment on above: Order Comment: No: D o not add to previous draw Performed By: #### 8 5123 #### [facility] [address] [place] [address], [facility] CBC W/DIFFon 05-26-2018 ABS BASOPHILS 0.0 10*3/uL Normal 0.0-0.2 [facility] Comment on above: Order Comment: No: D o not add to previous draw Performed By: #### 8 5123 #### [facility] [address] ABS IMM GRANS 0.0 10*3/uL Normal 0.0-0.2 [facility] Comment on above: Order Comment: No: D o not add to previous draw Performed By: #### 8 5123 #### [facility] [address] [place] [address], [facility] ABS NEUTROPHILS 1.9 10*3/uL Normal 1.6-7.6 [facility] Comment on above: Order Comment: No: D o not add to previous draw Performed By: #### 8 5123 #### [facility] [address] [place] [address], [facility] Basophils #/vol (Bld) 1.2 % High 0.0-1.0 [facility] Comment on above: Order Comment: No: D o not add to previous draw Performed By: #### 8 5123 #### [facility] [address] [place] [address], [facility] Eosinophils #/vol (Bld) 0.1 10*3/uL Normal 0.0-0.5 [facility] Comment on above: Order Comment: No: D o not add to previous draw Performed By: #### 8 5123 #### [facility] [address] [place] [address], [facility] Eosinophils/100 WBC (Bld) 4.0 % Normal 0.0-6.0 [facility] Comment on above: Order Comment: No: D o not add to previous draw Performed By: #### 8 5123 #### [facility] [address] Erythrocyte distribution width Ratio (RBC) 14.6 % Normal 11.5-15.0 [facility] Comment on above: Order Comment: No: D o not add to previous draw Performed By: #### 8 5123 #### [facility] [address] Hematocrit Volume Fraction (Bld) 35.2 % Low 36.0-45.0 [facility] Comment on above: Order Comment: No: D o not add to previous draw Performed By: #### 8 5123 #### [facility] [address] [place] [address], [facility] Hemoglobin mass conc (Bld) 10.9 g/dL Low 12.0-15.0 [facility] Comment on above: Order Comment: No: D o not add to previous draw Performed By: #### 8 5123 #### [facility] [address] [place] [address], [facility] IMMATURE GRANS 0.6 % Normal 0.0-1.0 [facility] Comment on above: Order Comment: No: D o not add to previous draw Performed By: #### 8 5123 #### [facility] [address] [facility] [place] [address], [facility] Lymphocytes #/vol (Bld) 1.0 10*3/uL Low 1.2-4.0 [facility] Comment on above: Order Comment: No: D o not add to previous draw Performed By: #### 8 5123 #### [facility] [address] [facility] Lymphocytes/100 WBC (Bld) 29.3 % Normal 20.0-45.0 [facility] Comment on above: Order Comment: No: D o not add to previous draw Performed By: #### 8 5123 #### [facility] [address] MCH Entitic mass (RBC) 27.8 pg Normal 27.0-33.0 [facility] Comment on above: Order Comment: No: D o not add to previous draw Performed By: #### 8 5123 #### [facility] [address] MCHC mass conc (RBC) 31.0 g/dL Low 32.0-35.0 [facility] Comment on above: Order Comment: No: D o not add to previous draw Performed By: #### 8 5123 #### [facility] [address] MCV Entitic volume (RBC) 89.8 fL Normal 82.0-98.0 [facility] Comment on above: Order Comment: No: D o not add to previous draw Performed By: #### 8 5123 #### [facility] [address] [place] [address], [facility] Monocytes #/vol (Bld) 0.2 10*3/uL Normal 0.1-1.0 [facility] Comment on above: Order Comment: No: D o not add to previous draw Performed By: #### 8 5123 #### [facility] [address] [place] [address], [facility] MONOS 7.0 % Normal 5.0-12.0 [facility] Comment on above: Order Comment: No: D o not add to previous draw Performed By: #### 8 5123 #### [facility] [address] [place] [address], [facility] Neutrophils/100 WBC (Bld) 57.9 % Normal 40.0-72.0 [facility] Comment on above: Order Comment: No: D o not add to previous draw Performed By: #### 8 5123 #### [facility] [address] [place] [address], [facility] Nucleated RBC/100 WBC Ratio (Bld) 0 % Normal 0-0 [facility] Comment on above: Order Comment: No: D o not add to previous draw Performed By: #### 8 5123 #### [facility] [address] [facility] [place] [address], [facility] PLAT CNT 175 10*3/uL Normal 150-400 [facility] Comment on above: Order Comment: No: D o not add to previous draw Performed By: #### 8 5123 #### [facility] [address] [place] [address], [facility] RBC #/vol (Bld) 3.92 10*6/uL Normal 3.80-5.00 [facility] Comment on above: Order Comment: No: D o not add to previous draw Performed By: #### 8 5123 #### [facility] [address] [place] [address], [facility] WBC #/vol (Bld) 3.28 10*3/uL Low 4.00-10.60 [facility] Comment on above: Order Comment: No: D o not add to previous draw Performed By: #### 8 5123 #### [facility] [address] EEG Reporton 05-26-2018 EEG Report Name: Shabana Stallworth [facility] MR#: [id number] Age: 58 Physician: Colt Boggs M.D. Date: 05/24/2018, Day #2. Lab#: Date of : 1960 Patient Type: I NEURODIAGNOSTIC SERVICES REPORT [address] [place], [place] [address] Board of the [place] [employer] Accredited Laboratory STUDY: Clinical Neurophysiology [...] May 25, 2018, and is suggestive of khvctfop-oj-lfficf diffuse encephalopathy. No clear epileptiform discharges or EEG seizures were seen during this recording. There was no push button event. Electronically Signed by: Raghu Matson MD 06/02/2018 09:51 P Raghu Matson MD Date Dict: 05/25/2018/09:23 A/Raghu Matson MD Date Trans: 05/26/2018 07:34 Dipak/luis e [id number] cc: Colt Boggs M.D. [address] [place] [id number] Normal [facility] MAGNESIUM BLOODon 05-26-2018 Magnesium mass conc 1.9 mg/dL Normal 1.9-2.7 [facility] Comment on above: Order Comment: No: D o not add to previous draw Performed By: #### 8 5123 #### [facility] [address] PHOSPHORUS BLOODon 9 Phosphate mass conc 2.7 mg/dL Normal 2.5-5.0 [facility] Comment on above: Order Comment: No: D o not add to previous draw Performed By: #### 8 5123 #### [facility] [address] *CSF CULTUREon 05-25-2018 *CSF CULTURE Clinical Report: (D) Specimen/Source: CSF/Tube 3 Collected: 05/25/2018 15:00 Status: Final Last Updated: 05/30/2018 06:30 (1) Lumbar Puncture. GRAM (Final) No Polys Seen No Bacteria Seen CYTOSPUN (Final) This Gram Stain was done on a cytocentrifuged specimen CULT RES (Final) No Growth Day 5 Normal [facility] Comment on above: Order Comment: No: D o not add to previous draw Performed By: #### 1 0054 #### [facility] [address] [place] [address], [facility] ALBUMIN FLUID MISCon 019 Albumin mass conc g/dL Normal [facility] Comment on above: Order Comment: No: D o not add to previous draw Result Comment: The reference range and other method performance specifications have not been established for this test in fluids. the test result should be integrated into the clinical context for interpretation. Performed By: #### 1 0054 #### [facility] [address] ARTERIAL BLOOD GAS WITH ICAo n 05-25-2018 BASE EXCESS -2 mmol/L Normal -2-2 [facility] Comment on above: Performed By: #### 5 0103 #### [facility] [address] DELIVERY SYSTEMS MV Normal [facility] Comment on above: Performed By: #### 5 0103 #### [facility] [address] [facility] [place] [address], [facility] FIO2 40 % Normal 21-100 [facility] Comment on above: Performed By: #### 5 0103 #### [facility] [address] [facility] HCO3 molar conc (Bld) 24 mmol/L Normal 23-27 [facility] Comment on above: Performed By: #### 5 0103 #### [facility] [address] IONIZED CALCIUM 1.16 mmol/L Normal 1.13-1.32 [facility] Comment on above: Performed By: #### 5 0103 #### [facility] [address] [facility] [place] [address], [facility] MIN VOLUME 5.8 Normal [facility] Comment on above: Performed By: #### 5 0103 #### [facility] [address] [place] [address], [place] MODALITY AC Normal [facility] Comment on above: Performed By: #### 5 0103 #### [facility] [address] [place] [address], [facility] Oxygen ppres (Bld) 131 mm[Hg] Critically high 75-100 T he [facility] Comment on above: Performed By: #### 5 0103 #### [facility] [address] [place] [address], [facility] Oxygen saturation in Blood 96.3 % Normal 94.0-97.0 [facility] Comment on above: Performed By: #### 5 0103 #### [facility] [address] [facility] [place] [address], [facility] PCO2 44 mmHg Normal 35-45 [facility] Comment on above: Performed By: #### 5 3 #### [facility] [address] [facility] [place] [address], [facility] PEEP 8.0 CMH20 Normal [facility] Comment on above: Performed By: #### 5 0103 #### [facility] [address] [facility] [place] [address], [facility] pH (Bld) 7.34 [pH] Low 7.35-7.45 [facility] Comment on above: Performed By: #### 5 3 #### [facility] [address] [place] [address], [facility] TIDAL VOLUME (VT) CC 400 Normal [facility] Comment on above: Performed By: #### 5 0103 #### [facility] [address] [place] [address], [facility] BASIC METABOLIC PANELon 05-15 Calcium mass conc 7.8 mg/dL Low 8.6-10.3 [facility] Comment on above: Order Comment: No: D o not add to previous draw Performed By: #### 5 3 #### [facility] [address] [place] [address], [facility] Chloride molar conc 111 mmol/L High 98-107 [facility] Comment on above: Order Comment: No: D o not add to previous draw Performed By: #### 5 0103 #### [facility] [address] [place] [address], [place] CO2 molar conc 22 mmol/L Normal 21-31 [facility] Comment on above: Order Comment: No: D o not add to previous draw Performed By: #### 5 0103 #### [facility] [address] [place] [address], [facility] Creatinine mass conc 0.75 mg/dL Normal 0.60-1.20 [facility] Comment on above: Order Comment: No: D o not add to previous draw Performed By: #### 5 0103 #### [facility] [address] [place] [address], [place] GFR/1.73 sq M predicted among blacks MDRD vol rate/area (S/P/Bld) mL/min/{1.73_m2} Normal >60 [facility] Comment on above: Order Comment: No: D o not add to previous draw Performed By: #### 5 0103 #### [facility] [address] [place] [address], [place] GFR/1.73 sq M predicted among non-blacks MDRD vol rate/area (S/P/Bld) mL/min/{1.73_m2} Normal >60 [facility] Comment on above: Order Comment: No: D o not add to previous draw Performed By: #### 5 0103 #### [facility] [address] [place] [address], [place] Glucose mass conc 111 mg/dL High 70-100 [facility] Comment on above: Order Comment: No: D o not add to previous draw Performed By: #### 5 0103 #### [facility] [address] [place] [address], [place] Potassium molar conc 3.3 mmol/L Low 3.5-5.1 [facility] Comment on above: Order Comment: No: D o not add to previous draw Performed By: #### 5 0103 #### [facility] [address] [place] [address], [facility] Sodium molar conc 139 mmol/L Normal 136-145 [facility] Comment on above: Order Comment: No: D o not add to previous draw Performed By: #### 5 0103 #### [facility] [address] [facility]. [address] Urea nitrogen mass conc 10 mg/dL Normal 7-25 [facility] Comment on above: Order Comment: No: D o not add to previous draw Performed By: #### 5 0103 #### [facility] [address] [facility] [place] [address], [facility] CBC W/DIFFon 05-25-2018 ABS BASOPHILS 0.0 10*3/uL Normal 0.0-0.2 [facility] Comment on above: Order Comment: No: D o not add to previous draw Performed By: #### 5 0103 #### [facility] [address] [facility]. [address] ABS IMM GRANS 0.0 10*3/uL Normal 0.0-0.2 [facility] Comment on above: Order Comment: No: D o not add to previous draw Performed By: #### 5 0103 #### [facility] [address] [facility]. [address] ABS NEUTROPHILS 2.9 10*3/uL Normal 1.6-7.6 [facility] Comment on above: Order Comment: No: D o not add to previous draw Performed By: #### 5 0103 #### [facility] [address] [facility] [place] [address], [facility] Basophils #/vol (Bld) 0.7 % Normal 0.0-1.0 [facility] Comment on above: Order Comment: No: D o not add to previous draw Performed By: #### 5 0103 #### [facility] [address] [place] [address], [facility] Eosinophils #/vol (Bld) 0.1 10*3/uL Normal 0.0-0.5 [facility] Comment on above: Order Comment: No: D o not add to previous draw Performed By: #### 5 0103 #### [facility] [address] [place] [address], [facility] Eosinophils/100 WBC (Bld) 2.9 % Normal 0.0-6.0 [facility] Comment on above: Order Comment: No: D o not add to previous draw Performed By: #### 5 0103 #### [facility] [address] [facility]. [address] Erythrocyte distribution width Ratio (RBC) 14.2 % Normal 11.5-15.0 [facility] Comment on above: Order Comment: No: D o not add to previous draw Performed By: #### 5 0103 #### [facility] [address] [facility] [place] [address], [facility] Hematocrit Volume Fraction (Bld) 33.4 % Low 36.0-45.0 [facility] Comment on above: Order Comment: No: D o not add to previous draw Performed By: #### 5 0103 #### [facility] [address] [facility] [place] [address], [facility] Hemoglobin mass conc (Bld) 10.8 g/dL Low 12.0-15.0 [facility] Comment on above: Order Comment: No: D o not add to previous draw Performed By: #### 5 0103 #### [facility] [address] [place] [address], [facility] IMMATURE GRANS 0.2 % Normal 0.0-1.0 [facility] Comment on above: Order Comment: No: D o not add to previous draw Performed By: #### 5 0103 #### [facility] [address] [place] [address], [facility] Lymphocytes #/vol (Bld) 1.1 10*3/uL Low 1.2-4.0 [facility] Comment on above: Order Comment: No: D o not add to previous draw Performed By: #### 5 0103 #### [facility] [address] [place] [address], [facility] Lymphocytes/100 WBC (Bld) 24.4 % Normal 20.0-45.0 [facility] Comment on above: Order Comment: No: D o not add to previous draw Performed By: #### 5 0103 #### [facility] [address] MCH Entitic mass (RBC) 27.9 pg Normal 27.0-33.0 [facility] Comment on above: Order Comment: No: D o not add to previous draw Performed By: #### 5 0103 #### [facility] [address] MCHC mass conc (RBC) 32.3 g/dL Normal 32.0-35.0 [facility] Comment on above: Order Comment: No: D o not add to previous draw Performed By: #### 5 3 #### [facility] [address] [facility]. [address] MCV Entitic volume (RBC) 86.3 fL Normal 82.0-98.0 [facility] Comment on above: Order Comment: No: D o not add to previous draw Performed By: #### 5 0103 #### [facility] [address] [place] [address], [facility] Monocytes #/vol (Bld) 0.3 10*3/uL Normal 0.1-1.0 [facility] Comment on above: Order Comment: No: D o not add to previous draw Performed By: #### 5 3 #### [facility] [address] [place] [address], [place] MONOS 7.0 % Normal 5.0-12.0 [facility] Comment on above: Order Comment: No: D o not add to previous draw Performed By: #### 5 0103 #### [facility] [address] [place] [address], [facility] Neutrophils/100 WBC (Bld) 64.8 % Normal 40.0-72.0 [facility] Comment on above: Order Comment: No: D o not add to previous draw Performed By: #### 5 0103 #### [facility] [address] [place] [id number], [facility] Nucleated RBC/100 WBC Ratio (Bld) 0 % Normal 0-0 [facility] Comment on above: Order Comment: No: D o not add to previous draw Performed By: #### 5 0103 #### [facility] [address] [place] [address], [place] PLAT CNT 172 10*3/uL Normal 150-400 [facility] Comment on above: Order Comment: No: D o not add to previous draw Performed By: #### 5 0103 #### [facility] [address] [place] [address], [facility] RBC #/vol (Bld) 3.87 10*6/uL Normal 3.80-5.00 [facility] Comment on above: Order Comment: No: D o not add to previous draw Performed By: #### 5 0103 #### [facility] [address] [place] [address], [place] WBC #/vol (Bld) 4.43 10*3/uL Normal 4.00-10.60 [facility] Comment on above: Order Comment: No: D o not add to previous draw Performed By: #### 5 0103 #### [facility] [address] CSF CELL COUNTon 05-25-2018 FLUID APPEAR ALL 4 TUBES: CLEAR A ND COLORLESS Normal [facility] Comment on above: Order Comment: No: D o not add to previous draw Performed By: #### 1 0054 #### [facility] [address] [place] [id number], [facility] FLUID VOLUME 16.5 ml Normal [facility] Comment on above: Order Comment: No: D o not add to previous draw Performed By: #### 1 0054 #### [facility] [address] [place] [address], [facility] Lymphocytes/100 WBC (Bld) 48 % High 0-0 [facility] Comment on above: Order Comment: No: D o not add to previous draw Performed By: #### 1 0054 #### [facility] [address] [place] [address], [facility] MACROPHAGE 11 % Normal [facility] Comment on above: Order Comment: No: D o not add to previous draw Performed By: #### 1 0054 #### [facility] [address] [place] [address], [facility] OTHER F1 TOTAL 68 WBC SEEN ON DIFF DONE ON CYTOSPIN PREP Normal [facility] Comment on above: Order Comment: No: D o not add to previous draw Result Comment: Resu lt changed by KMANU on 05/26/2018 09:25. The previous value was TOTAL 68 WBC SEEN ON DIFF DONE ON CYTOSPIN PREP. Performed By: #### 1 0054 #### [facility] [address] [place] [address], [facility] OTHER F3 Checked by Patrick walters M.D. Normal [facility] Comment on above: Order Comment: No: D o not add to previous draw Result Comment: Resu lt changed by KMANU on 05/26/2018 09:25. The previous value was Preliminary report; verified report to follow. Performed By: #### 1 0054 #### [facility] [address] RBC #/vol (Bld) 2 mm3 High 0-0 [facility] Comment on above: Order Comment: No: D o not add to previous draw Performed By: #### 1 0054 #### [facility] [address] [place] [address], [facility] RBC % CRENATION 0 % Normal 0-0 [facility] Comment on above: Order Comment: No: D o not add to previous draw Performed By: #### 1 0054 #### [facility] [address] SEGS 9 % High 0-0 [facility] Comment on above: Order Comment: No: D o not add to previous draw Performed By: #### 1 0054 #### [facility] [address] [facility]. [address] SITE LUMBAR, TUBE 4 Normal [facility] Comment on above: Order Comment: No: D o not add to previous draw Performed By: #### 1 0054 #### [facility] [address] [facility]. [address] WBC #/vol (Bld) 2 mm3 High 0-0 [facility] Comment on above: Order Comment: No: D o not add to previous draw Performed By: #### 1 0054 #### [facility] [address] [facility]. [address] XANTHOCHROMIA NONE SEEN Normal [facility] Comment on above: Order Comment: No: D o not add to previous draw Performed By: #### 1 0054 #### [facility] [address] DILANTINon 05-25-2018 DILANTIN (PHENYTOIN) 7.7 mcg/mL Low 10.0-20.0 [facility] Comment on above: Order Comment: No: D o not add to previous draw Performed By: #### 5 0103 #### [facility] [address] [place], [place] [address] EEG Reporton 05-25-2018 EEG Report Name: Shabana Stallworth [facility] MR#: [id number] Age: 58 Physician: Colt Boggs M.D. Date: 05/23/2018-05/24/2018 Lab#: [id number], day 1 Date of : 1960 Patient Type: I NEURODIAGNOSTIC SERVICES REPORT [address] [place], [place] [address] Board of the [place] [employer] Accredited Laboratory HISTORY: This video/EEG [...] M.D. Ph.D Date Trans: 05/24/2018 10:34 P/mmo [id number] cc: Colt Boggs M.D. [address] [place] [id number] Normal [facility] ENCEPHALOPATHY, AUTOIMMUNE C SFon 05-25-2018 ENCEPHALOPATHY AUTOIMMUNE EVAL, CSF Results faxed to ordering physician and sent to HIM Normal [facility] Comment on above: Performed By: #### 3 1018 #### [facility] [address] [place] [address], [facility] ENCEPHALOPATHY, AUTOIMMUNE S ERUMon 05-25-2018 ENCEPHALOPATHY EVALUATION Results faxed to ordering physician and sent to HIM Normal [facility] Comment on above: Performed By: #### 3 1018 #### [facility] [address] [place] [address], [facility] FLUID SPECIFIC GRAVITYon SPEC GRAV 1.005 Normal [facility] Comment on above: Order Comment: No: D o not add to previous draw Performed By: #### 8 5123 #### [facility] [address] [place] [address], [facility] FREE DILANTIN (UNBOUND)on FREE DILANTIN 1.0 mcg/mL Normal 1.0-2.0 [facility] Comment on above: Order Comment: No: D o not add to previous draw Performed By: #### 5 0103 #### [facility] [address] [facility] [place] [address], [facility] GLUCOSE CSFon 05-25-2018 GLUCOSE CSF 52 mg/dL Normal 40-70 [facility] Comment on above: Order Comment: No: D o not add to previous draw Performed By: #### 1 0054 #### [facility] [address] [facility] [place] [address], [facility] KEPPRA ILon 05-25-2018 IL Normal [facility] Comment on above: Order Comment: No: D o not add to previous draw KEPPRA 18 ug/mL Normal [facility] Comment on above: Order Comment: No: D [...] LUMBAR PUNCTURE DIAGNOSTICon 05-25-2018 LUMBAR PUNCTURE DIAGNOSTIC [facility] Department of Radiology [address] [place] [id number] Patient Name: SHABANA STALLWORTH : 1960 Sex: F Age: Race: White Pt. Location: [place] [address] Patient Status: I Ordered Date: 05/25/2018 9:10:00 [...] risks are acceptable. Consent was obtained. Timeout: [place] protocol timeout verification performed. PROCEDURE: Lumbar puncture [...] detected. Electronically signed by:Kacie Arnold. Transcribed by: [email or web address], User Resident: Electronically Signed by: KACIE ARNOLD @ 05/25/2018 06:13 PM Normal [facility] Comment on above: Order Comment: No: D o not add to previous draw MRI BRAIN TEMPORAL LOBE W WO CONTRASTon 05-25-2018 MRI BRAIN TEMPORAL LOBE W WO CONTRAST [facility] Department of Radiology [address] [place] [id number] Patient Name: SHABANA STALLWORTH : 1960 Sex: F Age: Race: White Pt. 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 Transcribed by: [email or web address], User Resident: Electronically Signed by: KACIE ARNOLD @ 05/26/2018 04:08 PM Normal [facility] Comment on above: Order Comment: No: D o not add to previous draw PROTHROMBIN TIMEon 9 INR Coag RelTime (PPP) 1.10 {INR} Normal 0.91-1.16 [facility] Comment on above: Order Comment: No: D [...] 1995;[id number]. Performed By: #### 1 0054 #### [facility] [address] [facility]. [address] Prothrombin time (PT) Coag time (PPP) 14.2 s Normal 12.3-14.8 [facility] Comment on above: Order Comment: No: D o not add to previous draw Result Comment: ALL RESULTS MUST BE INTERPRETED WITH RESPECT TO BLOOD DRAWING ARTIFACT OR DILUTION ERROR OF ANTICOAGULANT AT THE TIME OF SAMPLING. Performed By: #### 1 0054 #### [facility] [address] [facility]. [address] TOTAL PROTEIN CSFon 05-25-19 19 TOTAL PROTEIN CSF 93.0 mg/dL High 20.0-45.0 [facility] Comment on above: Order Comment: No: D o not add to previous draw Performed By: #### 1 0054 #### [facility] [address] [facility]. [address] TPO ANTIBODY [id number] TPO ANTIBODY <0.3 Normal 0.0-9.0 [facility] Comment on above: Order Comment: SPECI MEN IS CSF. PLEASE RUN WITH DISCLAIMER. SPOKE WITH CLARISSAREFERENCE NUMBER [id number] results should be interpreted with caution. Assay wasperformed at client's request on a sub-optimal specimen. Result Comment: Perf ormed by [facility], [address] [place] [address] [email or web address], Jack Torres MD - Lab. Director VANCOMYCIN TIMEDon 9 VANCOMYCIN TIMED 12.6 mcg/mL Normal [facility] Comment on above: Performed By: #### 1 0054 #### [facility] [address] VANCOMYCIN TIMED 30.2 mcg/mL Normal [facility] Comment on above: Order Comment: No: D o not add to previous draw Performed By: #### 2 1408 #### [address] VANCOMYCIN TROUGHon 05-25-19 19 VANCOMYCIN TROU 10.9 mcg/mL Normal 5.0-20.0 [facility] Comment on above: Performed By: #### 5 0103 #### [facility] [address] *AFB BLOOD CULTUREon 019 *AFB BLOOD CULTURE Clinical Report: (V) Specimen: BLOOD CULTURE Collected: 05/24/2018 12:48 Status: Pending Last Updated: 05/26/2018 15:38 CULT RES (Prelim) Culture In Progress No Growth To Date Normal [facility] Comment on above: Performed By: #### 8 5123 #### [address] *BLOOD CULTUREon 05-24-2018 Bacteria identified Cx Nom (Bld) Clinical Report: (D) Specimen: BLOOD CULTURE Collected: 05/24/2018 14:47 Status: Final Last Updated: 05/30/2018 06:16 CULT RES (Final) No Growth Day 5 Normal [facility] Comment on above: Performed By: #### 2 1408 #### [facility] [address] Bacteria identified Cx Nom (Bld) Clinical Report: (D) Specimen: BLOOD CULTURE Collected: 05/24/2018 12:48 Status: Final Last Updated: 05/30/2018 06:16 CULT RES (Final) No Growth Day 5 Normal [facility] Comment on above: Performed By: #### 2 1408 #### [facility] [address] *FUNGAL BLOOD CULTUREon 05-15 *FUNGAL BLOOD CULTURE Clinical Report: (D) Specimen: BLOOD CULTURE Collected: 05/24/2018 12:48 Status: Final Last Updated: 07/06/2018 11:17 (1) No: Do not add to previous draw CULT RES (Final) No growth after 42 days of incubation Normal [facility] Comment on above: Order Comment: No: D o not add to previous draw Performed By: #### 8 5123 #### [facility] [address] [place] [address], [facility] ANAon 05-24-2018 Nuclear Ab IF titer (S) <1:40 Normal <1:40,1:40 [facility] Comment on above: Order Comment: No: D o not add to previous draw Performed By: #### 2 1408 #### [facility] [address] [facility] [place] [address], [facility] ANCA IGG WITH REFLEX [id number] on 05-24-2018 ANCA <1:20 Normal <1:20 [facility] Comment on above: Order Comment: No: D [...] collagen vascular disease or arthritis. Performed by [facility], [address] [place] [id number] [email or web address], Jack Torres MD - Lab. Director ANTI DNAon 05-24-2018 ANTI DNA <1:10 Normal <1:10 [facility] Comment on above: Order Comment: No: D o not add to previous draw Performed By: #### 2 1408 #### [facility] [address] [place] [address], [facility] ANTI-BETA 2 GLYCOPROTEIN 1on 05-24-2018 ANTI B2GP1 IGG 0.0 g units Normal 0.0-19.9 [facility] Comment on above: Order Comment: No: D o not add to previous draw Performed By: #### 3 1018 #### [facility] [address] [place] [address], [facility] ANTI B2GP1 IGM 3.6 m units Normal 0.0-19.9 [facility] Comment on above: Order Comment: No: D o not add to previous draw Performed By: #### 3 1018 #### [facility] [address] [place] [address], [facility] ANTICARDIOLIPIN ANTIBODYon 0 05-24-2018 CARDIOLIPIN IGG 7.3 GPL Normal 0.0-22.9 [facility] Comment on above: Order Comment: No: D o not add to previous draw Performed By: #### 3 1018 #### [facility] [address] [place] [address], [facility] CARDIOLIPIN IGM 5.5 MPL Normal 0.0-10.9 [facility] Comment on above: Order Comment: No: D o not add to previous draw Performed By: #### 3 1018 #### [facility] [address] [place] [address], [facility] ARTERIAL BLOOD GAS WITH ICAo n 05-24-2018 BASE EXCESS -3 mmol/L Low -2-2 [facility] Comment on above: Performed By: #### 3 1018 #### [facility] [address] [place] [address], [facility] DELIVERY SYSTEMS MV Normal [facility] Comment on above: Performed By: #### 3 1018 #### [facility] [address] [place] [address], [place] FIO2 40 % Normal 21-100 [facility] Comment on above: Performed By: #### 3 1018 #### [facility] [address] [place] [address], [place] HCO3 molar conc (Bld) 22 mmol/L Low 23-27 [facility] Comment on above: Performed By: #### 3 1018 #### [facility] [address] [place] [address], [facility] IONIZED CALCIUM 1.14 mmol/L Normal 1.13-1.32 [facility] Comment on above: Performed By: #### 3 1018 #### [facility] [address] [place] [address], [facility] MIN VOLUME 5.8 Normal [facility] Comment on above: Performed By: #### 3 1018 #### [facility] [address] [place] [address], [facility] MODALITY AC Normal [facility] Comment on above: Performed By: #### 3 1018 #### [facility] [address] [place] [address], [facility] Oxygen ppres (Bld) 106 mm[Hg] Critically high 75-100 T he [facility] Comment on above: Performed By: #### 3 1018 #### [facility] [address] [place] [address], [facility] Oxygen saturation in Blood 95.3 % Normal 94.0-97.0 [facility] Comment on above: Performed By: #### 3 1018 #### [facility] [address] [place] [address], [facility] PCO2 37 mmHg Normal 35-45 [facility] Comment on above: Performed By: #### 3 1018 #### [facility] [address] [place] [address], [facility] PEEP 8.0 CMH20 Normal [facility] Comment on above: Performed By: #### 3 1018 #### [facility] [address] [place] [address], [facility] PF RATIO 265 mmHg Normal 50-400 [facility] Comment on above: Performed By: #### 3 1018 #### [facility] [address] [place] [address], [facility] pH (Bld) 7.38 [pH] Normal 7.35-7.45 [facility] Comment on above: Performed By: #### 3 1018 #### [facility] [address] [place] [address], [facility] TIDAL VOLUME (VT) CC 400 Normal [facility] Comment on above: Performed By: #### 3 1018 #### [facility] [address] [place] [address], [facility] BASIC METABOLIC PANELon 05-15 Calcium mass conc 8.0 mg/dL Low 8.6-10.3 [facility] Comment on above: Order Comment: No: D o not add to previous draw Performed By: #### 3 1018 #### [facility] [address] [place] [address], [facility] Chloride molar conc 104 mmol/L Normal 98-107 [facility] Comment on above: Order Comment: No: D o not add to previous draw Performed By: #### 3 1018 #### [facility] [address] [place] [address], [facility] CO2 molar conc 23 mmol/L Normal 21-31 [facility] Comment on above: Order Comment: No: D o not add to previous draw Performed By: #### 3 1018 #### [facility] [address] [place] [address], [facility] Creatinine mass conc 0.99 mg/dL Normal 0.60-1.20 [facility] Comment on above: Order Comment: No: D o not add to previous draw Performed By: #### 3 1018 #### [facility] [address] [place] [address], [facility] GFR/1.73 sq M predicted among blacks MDRD vol rate/area (S/P/Bld) mL/min/{1.73_m2} Normal >60 [facility] Comment on above: Order Comment: No: D o not add to previous draw Performed By: #### 3 1018 #### [facility] [address] [place] [address], [facility] GFR/1.73 sq M predicted among non-blacks MDRD vol rate/area (S/P/Bld) 58 ml/min/1.73sq m Abnormal >60 [facility] Comment on above: Order Comment: No: D o not add to previous draw Performed By: #### 3 1018 #### [facility] [address] [place] [address], [facility] Glucose mass conc 162 mg/dL High 70-100 [facility] Comment on above: Order Comment: No: D o not add to previous draw Performed By: #### 3 1018 #### [facility] [address] [place] [address], [facility] Potassium molar conc 3.8 mmol/L Normal 3.5-5.1 [facility] Comment on above: Order Comment: No: D o not add to previous draw Performed By: #### 3 1018 #### [facility] [address] [place] [address], [facility] Sodium molar conc 135 mmol/L Low 136-145 [facility] Comment on above: Order Comment: No: D o not add to previous draw Performed By: #### 3 1018 #### [facility] [address] [place] [address], [facility] Urea nitrogen mass conc 15 mg/dL Normal 7-25 [facility] Comment on above: Order Comment: No: D o not add to previous draw Performed By: #### 3 1018 #### [facility] [address] [place] [address], [facility] CBC COMPLETE BLOOD COUNTon 0 - Erythrocyte distribution width Ratio (RBC) 13.7 % Normal 11.5-15.0 [facility] Comment on above: Order Comment: No: D o not add to previous draw Performed By: #### 3 1018 #### [facility] [address] Hematocrit Volume Fraction (Bld) 36.6 % Normal 36.0-45.0 [facility] Comment on above: Order Comment: No: D o not add to previous draw Performed By: #### 3 1018 #### [facility] [address] [place] [id number], [facility] Hemoglobin mass conc (Bld) 11.8 g/dL Low 12.0-15.0 [facility] Comment on above: Order Comment: No: D o not add to previous draw Performed By: #### 3 1018 #### [facility] [address] [place] [address], [facility] MCH Entitic mass (RBC) 27.6 pg Normal 27.0-33.0 [facility] Comment on above: Order Comment: No: D o not add to previous draw Performed By: #### 3 1018 #### [facility] [address] MCHC mass conc (RBC) 32.2 g/dL Normal 32.0-35.0 [facility] Comment on above: Order Comment: No: D o not add to previous draw Performed By: #### 3 1018 #### [facility] [address] [place] [address], [facility] MCV Entitic volume (RBC) 85.7 fL Normal 82.0-98.0 [facility] Comment on above: Order Comment: No: D o not add to previous draw Performed By: #### 3 1018 #### [facility] [address] [place] [address], [facility] Nucleated RBC/100 WBC Ratio (Bld) 0 % Normal 0-0 [facility] Comment on above: Order Comment: No: D o not add to previous draw Performed By: #### 3 1018 #### [facility] [address] [place] [address], [facility] PLAT CNT 204 10*3/uL Normal 150-400 [facility] Comment on above: Order Comment: No: D o not add to previous draw Performed By: #### 3 1018 #### [facility] [address] RBC #/vol (Bld) 4.27 10*6/uL Normal 3.80-5.00 [facility] Comment on above: Order Comment: No: D o not add to previous draw Performed By: #### 3 1018 #### [facility] [address] [place] [address], [facility] WBC #/vol (Bld) 8.94 10*3/uL Normal 4.00-10.60 [facility] Comment on above: Order Comment: No: D o not add to previous draw Performed By: #### 3 1018 #### [facility] [address] [place] [address], [facility] COMPLEMENT 3on 05-24-2018 COMPLEMENT 3 134 mg/dL Normal 79-152 [facility] Comment on above: Order Comment: No: D o not add to previous draw Performed By: #### 5 0103 #### [facility] [address] [place] [place] [address], [facility] COMPLEMENT 4on 05-24-2018 COMPLEMENT 4 28 mg/dL Normal 16-38 [facility] Comment on above: Order Comment: No: D o not add to previous draw Performed By: #### 5 0103 #### [facility] [address] [place] [address], [facility] CRYOGLOBULIN ILon 05-24-2018 CRYOGLOBULIN 0 mg/dL Normal 0-10 [facility] CYCLIC CITRULLINATED PEPTIDE AB [id number] 05-24-2018 CYCLIC CIT PEP 6 Units Normal 0-19 [facility] Comment on above: Order Comment: No: D [...] be monitored and testing repeated. Performed by [facility], [address] [place] [id number] [email or web address], Jack Torres MD - Lab. Director DRVVT SCREENon 05-24-2018 DRVVT SCREEN 1.04 RATIO Normal 0.00-1.20 [facility] Comment on above: Order Comment: No: D o not add to previous draw Performed By: #### 1 0054 #### [facility] [address] EEG Reporton 05-24-2018 EEG Report Name: Shabana Stallworth [facility] MR#: [id number] Age: 58 Physician: Colt Boggs M.D. Date: 05/23/2018 Lab#: [id number] Date of : 1960 Patient Type: I NEURODIAGNOSTIC SERVICES REPORT [address] [place], [place] [id number] Board of the [place] [employer] Accredited Laboratory HISTORY: This EEG [...] Ph.D Date Trans: 05/24/2018 05:02 Dipak/luis e [id number] cc: Colt Boggs M.D. [address] [place] [phone] Normal [facility] FREE DILANTIN (UNBOUND)on FREE DILANTIN 1.2 mcg/mL Normal 1.0-2.0 [facility] Comment on above: Order Comment: No: D o not add to previous draw2x could not get Performed By: #### 3 1018 #### [facility] [address] [place] [address], [facility] LUPUS ANTICOAGULANTon 2018 LUPUS ANTICOAGUL Negative Normal NEGATIVE [facility] Comment on above: Order Comment: No: D o not add to previous draw Result Comment: BY H EXAGONAL PHASE PHOSPHOLIPID METHODOLOGY Performed By: #### 2 1408 #### [facility] [address] [place] [address], [facility] MAGNESIUM BLOODon 05-24-2018 Magnesium mass conc 1.7 mg/dL Low 1.9-2.7 [facility] Comment on above: Order Comment: No: D o not add to previous draw Performed By: #### 3 1018 #### [facility] [address] [place] [address], [facility] PHOSPHORUS BLOODon 9 Phosphate mass conc 3.5 mg/dL Normal 2.5-5.0 [facility] Comment on above: Order Comment: No: D o not add to previous draw Performed By: #### 3 1018 #### [facility] [address] [facility] [place] [address], [facility] PROCALCITONINon 05-24-2018 Protein mass conc 0.18 ng/mL High 0.00-0.10 [facility] Comment on above: Order Comment: No: D [...] PCT<0.5ng/mL Performed By: #### 5 0103 #### [facility] [address] [place] [address], [facility] PTT-LAon 05-24-2018 aPTT Coag time (Bld) 37.3 s Normal 31.0-43.0 [facility] Comment on above: Order Comment: No: D o not add to previous draw Performed By: #### 2 1408 #### [facility] [address] [place] [address], [facility] RHEUMATOID FACTOR SERUMon RA <20 Normal 0-20 [facility] Comment on above: Order Comment: No: D o not add to previous draw Performed By: #### 5 0103 #### [facility] [address] [place] [address], [facility] SJOGRENS ANTIBODIESon 2018 SS-A Negative Normal NEG,NEGATIVE ,Neg [facility] Comment on above: Order Comment: No: D o not add to previous draw Performed By: #### 2 1408 #### [facility] [address] [place] [address], [facility] SS-B Negative Normal NEG,NEGATIVE ,Neg [facility] Comment on above: Order Comment: No: D o not add to previous draw Performed By: #### 2 1408 #### [facility] [address] [place] [address], [facility] SMOOTH MUSCLE ABon 9 SMOOTH MUSC AB 1:20 Abnormal NONE DETECTED [facility] Comment on above: Order Comment: No: D o not add to previous draw Result Comment: NONE DETECTED: LESS THAN 1:20 WEAKLY POSITIVE: 1:20 - 1:40 SUGGESTIVE OF CHRONIC HEPATITIS: 1:80 OR GREATER NOTE: FOR WEAKLY POSITIVE RESULTS, TITER MAY BE PRESENT IN ACUTE VIRAL HEPATITIS, INFECTIOUS MONONUCLEOSIS OR MALIGNANCY. Performed By: #### 2 1408 #### [facility] [address] [facility]. [address] URINALYSIS REFLEXon 05-24-19 19 Appearance Nom (U) CLEAR Normal CLEAR [facility] Comment on above: Order Comment: No: D o not add to previous drawCriteria for reflexing a culture was not met. Please call the lab [id number] within 24 hours of collection time if culture is needed Performed By: #### 3 1018 #### [facility] [address] [facility] [place] [address], [facility] Bilirubin mass conc Negative Normal NEGATIVE [facility] Comment on above: Order Comment: No: D o not add to previous drawCriteria for reflexing a culture was not met. Please call the lab [id number] within 24 hours of collection time if culture is needed Performed By: #### 3 1018 #### [facility] [address] [facility] [place] [address], [facility] BLOOD MODERATE Abnormal NEGATIVE [facility] Comment on above: Order Comment: No: D o not add to previous drawCriteria for reflexing a culture was not met. Please call the lab [id number] within 24 hours of collection time if culture is needed Performed By: #### 3 1018 #### [facility] [address] [facility] [place] [address], [facility] Color Nom (U) YELLOW Normal YELLOW [facility] Comment on above: Order Comment: No: D o not add to previous drawCriteria for reflexing a culture was not met. Please call the lab [id number] within 24 hours of collection time if culture is needed Performed By: #### 3 1018 #### [facility] [address] [place] [address], [facility] EPIS OCC Normal FEW,OCC,NONE SEEN [facility] Comment on above: Order Comment: No: D o not add to previous drawCriteria for reflexing a culture was not met. Please call the lab [id number] within 24 hours of collection time if culture is needed Performed By: #### 3 1018 #### [facility] [address] [place] [address], [facility] Glucose mass conc Negative Normal NEGATIVE [facility] Comment on above: Order Comment: No: D o not add to previous drawCriteria for reflexing a culture was not met. Please call the lab [id number] within 24 hours of collection time if culture is needed Performed By: #### 3 1018 #### [facility] [address] [facility] [place] [address], [facility] KETONE Negative Normal NEGATIVE [facility] Comment on above: Order Comment: No: D o not add to previous drawCriteria for reflexing a culture was not met. Please call the lab [id number] within 24 hours of collection time if culture is needed Performed By: #### 3 1018 #### [facility] [address] [facility] [place] [address], [facility] LEUK BARRETT Negative Normal NEGATIVE [facility] Comment on above: Order Comment: No: D o not add to previous drawCriteria for reflexing a culture was not met. Please call the lab [id number] within 24 hours of collection time if culture is needed Performed By: #### 3 1018 #### [facility] [address] [facility] [place] [address], [facility] MUCUS THREADS OCC Abnormal NONE SEEN [facility] Comment on above: Order Comment: No: D o not add to previous drawCriteria for reflexing a culture was not met. Please call the lab [id number] within 24 hours of collection time if culture is needed Performed By: #### 3 1018 #### [facility] [address] [facility] [place] [address], [facility] Nitrite Ql (U) Negative Normal NEGATIVE [facility] Comment on above: Order Comment: No: D o not add to previous drawCriteria for reflexing a culture was not met. Please call the lab [id number] within 24 hours of collection time if culture is needed Performed By: #### 3 1018 #### [facility] [address] pH (Bld) 5.0 Normal 5.0-8.0 [facility] Comment on above: Order Comment: No: D o not add to previous drawCriteria for reflexing a culture was not met. Please call the lab [id number] within 24 hours of collection time if culture is needed Performed By: #### 3 1018 #### [facility] [address] Protein mass conc (U) Negative Normal NEGATIVE [facility] Comment on above: Order Comment: No: D o not add to previous drawCriteria for reflexing a culture was not met. Please call the lab [id number] within 24 hours of collection time if culture is needed Performed By: #### 3 1018 #### [facility] [address] RBC #/vol (U) 21-50 Abnormal NONE SEEN [facility] Comment on above: Order Comment: No: D o not add to previous drawCriteria for reflexing a culture was not met. Please call the lab [id number] within 24 hours of collection time if culture is needed Performed By: #### 3 1018 #### [facility] [address] SPEC GRAV 1.023 High 1.015-1.020 [facility] Comment on above: Order Comment: No: D o not add to previous drawCriteria for reflexing a culture was not met. Please call the lab [id number] within 24 hours of collection time if culture is needed Performed By: #### 3 1018 #### [facility] [address] URIC ACID CRYSTAL OCC Abnormal NONE SEEN [facility] Comment on above: Order Comment: No: D o not add to previous drawCriteria for reflexing a culture was not met. Please call the lab [id number] within 24 hours of collection time if culture is needed Performed By: #### 3 1018 #### [facility] [address] [place] [address], [facility] WBC UA 3-5 Abnormal NONE SEEN [facility] Comment on above: Order Comment: No: D o not add to previous drawCriteria for reflexing a culture was not met. Please call the lab [id number] within 24 hours of collection time if culture is needed Performed By: #### 3 1018 #### [facility] [address] *RAPID FLU AANDB BY ELDON Bry 05-23-2018 *RAPID FLU AANDB BY MOLECULAR Clinical Report: (D) Specimen: NASAL SWAB Collected: 05/23/2018 11:11 Status: Final Last Updated: 05/23/2018 11:48 FLUA RNA (Final) Negative FLUB RNA (Final) Negative Normal [facility] Comment on above: Performed By: #### 3 1018 #### [facility] [address] [facility] [place] [address], [facility] AMMONIA BLOODon 05-23-2018 Ammonia mass conc (P) 39 umol/L Normal 16-53 [facility] Comment on above: Order Comment: No: D o not add to previous draw Performed By: #### 2 1408 #### [facility] [address] [facility] [place] [address], [facility] ARTERIAL BLOOD GAS WITH ICAo n 05-23-2018 BASE EXCESS -1 mmol/L Normal -2-2 [facility] Comment on above: Performed By: #### 3 1018 #### [facility] [address] [place] [address], [facility] [employer] MV Normal [facility] Comment on above: Performed By: #### 3 1018 #### [facility] [address] [place] [address], [facility] FIO2 50 % Normal 21-100 [facility] Comment on above: Performed By: #### 3 1018 #### [facility] [address] [place] [address], [place] HCO3 molar conc (Bld) 22 mmol/L Low 23-27 [facility] Comment on above: Performed By: #### 3 1018 #### [facility] [address] [place] [address], [place] IONIZED CALCIUM 1.12 mmol/L Low 1.13-1.32 [facility] Comment on above: Performed By: #### 3 1018 #### [facility] [address] [place] [address], [facility] MIN VOLUME 11.2 Normal [facility] Comment on above: Performed By: #### 3 1018 #### [facility] [address] [place] [address], [place] MODALITY A/C Normal [facility] Comment on above: Performed By: #### 3 1018 #### [facility] [address] [place] [address], [place] Oxygen ppres (Bld) 131 mm[Hg] Critically high 75-100 [facility] Comment on above: Performed By: #### 3 1018 #### [facility] [address] [place] [address], [place] Oxygen saturation in Blood 96.0 % Normal 94.0-97.0 [facility] Comment on above: Performed By: #### 3 1018 #### [facility] [address] [place] [address], [place] PCO2 29 mmHg Low 35-45 [facility] Comment on above: Performed By: #### 3 1018 #### [facility] [address] [place] [address], [place] PEEP 8.0 CMH20 Normal [facility] Comment on above: Performed By: #### 3 1018 #### [facility] [address] [facility] PF RATIO 262 mmHg Normal 50-400 [facility] Comment on above: Performed By: #### 3 1018 #### [facility] [address] [facility] [place] [address], [facility] pH (Bld) 7.48 [pH] High 7.35-7.45 [facility] Comment on above: Performed By: #### 3 1018 #### [facility] [address] [facility]. [address] TIDAL VOLUME (VT) CC 450 Normal [facility] Comment on above: Performed By: #### 3 1018 #### [facility] [address] [facility]. [address] BNP (B-TYPE NATRIURETIC PEPT PATRICIA)on 05-23-2018 Natriuretic peptide B mass conc (Bld) 39 pg/mL Normal 0-100 [facility] Comment on above: Order Comment: No: D o not add to previous draw Result Comment: Give n the appropriate clinical setting a BNP result of >100 pg/mL indicates congestive heart failure. Performed By: #### 8 5123 #### [facility] [address] [facility] [place] [address], [facility] CBC W/DIFFon 05-23-2018 ABS BASOPHILS 0.0 10*3/uL Normal 0.0-0.2 [facility] Comment on above: Order Comment: No: D o not add to previous draw Performed By: #### 5 0103 #### [facility] [address] [facility] [place] [address], [facility] ABS IMM GRANS 0.0 10*3/uL Normal 0.0-0.2 [facility] Comment on above: Order Comment: No: D o not add to previous draw Performed By: #### 5 0103 #### [facility] [address] [facility] [place] [address], [facility] ABS NEUTROPHILS 5.0 10*3/uL Normal 1.6-7.6 [facility] Comment on above: Order Comment: No: D o not add to previous draw Performed By: #### 5 0103 #### [facility] [address] [place] [address], [facility] Basophils #/vol (Bld) 0.4 % Normal 0.0-1.0 [facility] Comment on above: Order Comment: No: D o not add to previous draw Performed By: #### 5 0103 #### [facility] [address] [place] [address], [facility] Eosinophils #/vol (Bld) 0.0 10*3/uL Normal 0.0-0.5 [facility] Comment on above: Order Comment: No: D o not add to previous draw Performed By: #### 5 0103 #### [facility] [address] [place] [address], [facility] Eosinophils/100 WBC (Bld) 0.0 % Normal 0.0-6.0 [facility] Comment on above: Order Comment: No: D o not add to previous draw Performed By: #### 5 0103 #### [facility] [address] [facility]. [address] Erythrocyte distribution width Ratio (RBC) 13.2 % Normal 11.5-15.0 [facility] Comment on above: Order Comment: No: D o not add to previous draw Performed By: #### 5 0103 #### [facility] [address] Hematocrit Volume Fraction (Bld) 43.7 % Normal 36.0-45.0 [facility] Comment on above: Order Comment: No: D o not add to previous draw Performed By: #### 5 0103 #### [facility] [address] [place] [address], [facility] Hemoglobin mass conc (Bld) 14.6 g/dL Normal 12.0-15.0 [facility] Comment on above: Order Comment: No: D o not add to previous draw Performed By: #### 5 0103 #### [facility] [address] IMMATURE GRANS 0.3 % Normal 0.0-1.0 [facility] Comment on above: Order Comment: No: D o not add to previous draw Performed By: #### 5 0103 #### [facility] [address] Lymphocytes #/vol (Bld) 1.7 10*3/uL Normal 1.2-4.0 [facility] Comment on above: Order Comment: No: D o not add to previous draw Performed By: #### 5 0103 #### [facility] [address] Lymphocytes/100 WBC (Bld) 24.8 % Normal 20.0-45.0 [facility] Comment on above: Order Comment: No: D o not add to previous draw Performed By: #### 5 0103 #### [facility] [address] MCH Entitic mass (RBC) 27.7 pg Normal 27.0-33.0 [facility] Comment on above: Order Comment: No: D o not add to previous draw Performed By: #### 5 0103 #### [facility] [address] MCHC mass conc (RBC) 33.4 g/dL Normal 32.0-35.0 [facility] Comment on above: Order Comment: No: D o not add to previous draw Performed By: #### 5 0103 #### [facility] [address] MCV Entitic volume (RBC) 82.9 fL Normal 82.0-98.0 [facility] Comment on above: Order Comment: No: D o not add to previous draw Performed By: #### 5 0103 #### [facility] [address] [place] [address], [facility] Monocytes #/vol (Bld) 0.3 10*3/uL Normal 0.1-1.0 [facility] Comment on above: Order Comment: No: D o not add to previous draw Performed By: #### 5 0103 #### [facility] [address] [place] [address], [facility] MONOS 3.6 % Low 5.0-12.0 [facility] Comment on above: Order Comment: No: D o not add to previous draw Performed By: #### 5 0103 #### [facility] [address] [place] [address], [facility] Neutrophils/100 WBC (Bld) 70.9 % Normal 40.0-72.0 [facility] Comment on above: Order Comment: No: D o not add to previous draw Performed By: #### 5 0103 #### [facility] [address] [facility] [place] [address], [facility] Nucleated RBC/100 WBC Ratio (Bld) 0 % Normal 0-0 [facility] Comment on above: Order Comment: No: D o not add to previous draw Performed By: #### 5 3 #### [facility] [address] [facility] [place] [address], [facility] PLAT CNT 241 10*3/uL Normal 150-400 [facility] Comment on above: Order Comment: No: D o not add to previous draw Performed By: #### 5 0103 #### [facility] [address] [place] [address], [facility] RBC #/vol (Bld) 5.27 10*6/uL High 3.80-5.00 [facility] Comment on above: Order Comment: No: D o not add to previous draw Performed By: #### 5 3 #### [facility] [address] [place] [address], [facility] WBC #/vol (Bld) 7.03 10*3/uL Normal 4.00-10.60 [facility] Comment on above: Order Comment: No: D o not add to previous draw Performed By: #### 5 0103 #### [facility] [address] [place] [address], [facility] COMP METABOLIC PANELon 05-23 Albumin mass conc 4.1 g/dL Normal 3.5-5.7 [facility] Comment on above: Order Comment: No: D o not add to previous draw Performed By: #### 2 5508, 55055, 10086, 51281 #### [facility] [address] [place] [address], [facility] ALKALINE PHOSPH 58 IU/L Normal 34-104 [facility] Comment on above: Order Comment: No: D o not add to previous draw Performed By: #### 2 5508, 89140, 49177, 53602 #### [facility] [address] [place] [address], [facility] ALT enzyme act/vol 43 U/L Normal 7-52 [facility] Comment on above: Order Comment: No: D o not add to previous draw Performed By: #### 2 5508, 48772, 56432, 91329 #### [facility] [address] [place] [address], [facility] AST enzyme act/vol 30 U/L Normal 13-39 [facility] Comment on above: Order Comment: No: D o not add to previous draw Performed By: #### 2 5508, 22574, 50269, 02667 #### [facility] [address] [place] [id number], [facility] Bilirubin mass conc 0.5 mg/dL Normal 0.3-1.0 [facility] Comment on above: Order Comment: No: D o not add to previous draw Performed By: #### 2 5508, 57956, 43261, 56566 #### [facility] [address] [place] [address], [place] Calcium mass conc 9.4 mg/dL Normal 8.6-10.3 [facility] Comment on above: Order Comment: No: D o not add to previous draw Performed By: #### 2 5508, 56963, 90471, 10072 #### [facility] [address] [place] [address], [place] Chloride molar conc 99 mmol/L Normal 98-107 [facility] Comment on above: Order Comment: No: D o not add to previous draw Performed By: #### 2 5508, 04184, 56699, 45802 #### [facility] [address] [place] [address], [place] CO2 molar conc 24 mmol/L Normal 21-31 [facility] Comment on above: Order Comment: No: D o not add to previous draw Performed By: #### 2 550, 25330, 78773, 72739 #### [facility] [address] [place] [address], [place] Creatinine mass conc 0.97 mg/dL Normal 0.60-1.20 [facility] Comment on above: Order Comment: No: D o not add to previous draw Performed By: #### 2 5508, 07833, 63349, 11975 #### [facility] [address] [place] [address], [place] GFR/1.73 sq M predicted among blacks MDRD vol rate/area (S/P/Bld) mL/min/{1.73_m2} Normal >60 [facility] Comment on above: Order Comment: No: D o not add to previous draw Performed By: #### 2 5508, 49813, 77772, 73002 #### [facility] [address] [place] [address], [place] GFR/1.73 sq M predicted among non-blacks MDRD vol rate/area (S/P/Bld) 59 ml/min/1.73sq m Abnormal >60 [facility] Comment on above: Order Comment: No: D o not add to previous draw Performed By: #### 2 8, 17903, 13968, 11102 #### [facility] [address] [place] [address], [place] Glucose mass conc 204 mg/dL High 70-100 [facility] Comment on above: Order Comment: No: D o not add to previous draw Performed By: #### 2 8, 46271, 81964, 38234 #### [facility] [address] [place] [address], [place] Potassium molar conc 4.0 mmol/L Normal 3.5-5.1 [facility] Comment on above: Order Comment: No: D o not add to previous draw Performed By: #### 2 5507, 34663, 16900, 55830 #### [facility] [address] [place] [address], [place] Protein mass conc 7.7 g/dL Normal 6.0-8.3 [facility] Comment on above: Order Comment: No: D o not add to previous draw Performed By: #### 2 5507, 81241, 56775, 11117 #### [facility] [address] [place] [address], [place] Sodium molar conc 134 mmol/L Low 136-145 [facility] Comment on above: Order Comment: No: D o not add to previous draw Performed By: #### 2 550, 01712, 98025, 34055 #### [facility] [address] [place] [address], [place] Urea nitrogen mass conc 18 mg/dL Normal 7-25 [facility] Comment on above: Order Comment: No: D o not add to previous draw Performed By: #### 2 550, 22346, 30114, 47558 #### [facility] [address] [place] [address], [place] CPKon 02-09-2019 CK enzyme act/vol 47 U/L Normal 30-223 [facility] Comment on above: Performed By: #### 2 5508, 15815, 67402, 86448 #### [place] [address], [facility] CT BRAIN W WO CONTRASTon CT BRAIN W WO CONTRAST [facility] Department of Radiology [address] [place] [id number] Patient Name: SHABANA STALLWORTH : 1960 Sex: F Age: Race: White Pt. Location: [place] [address] Patient Status: I Ordered Date: 05/23/2018 4:25:00 [...] findings. Electronically signed by:Jewel Barnett. Transcribed by: [email or web address], User Resident: STORMY ACEVEDO Electronically Signed by: JEWEL BARNETT @ 05/24/2018 07:57 AM I personally read this/these film(s) with this resident Normal [facility] Comment on above: Order Comment: R/O S eizure Disorder History and Physicalon 05-23 History and Physical MR#: [id number] [facility] Pt. Name: Shabana Stallworth Admitted: 05/23/2018 Date of : 1960 Attending Physician: Oral Ortiz MD Room #: VALE [id number] Discharge Date: HISTORY AND PHYSICAL CHIEF COMPLAINT: [...] 5.3, she was changed back from the [place] Thyroid to Synthroid, which she did the [...] Ortiz MD Date Trans: 05/23/2018 12:23 P/mmo [id number] Normal [facility] LACTATE BLOODon 05-23-2018 Lactate molar conc 2.1 mmol/L Normal 0.5-2.2 [facility] Comment on above: Order Comment: No: D o not add to previous draw Performed By: #### 1 0054 #### [facility] [address] Operative Reporton 9 Operative Report MR#: [id number] I [facility] Pt. Name: Shabana Stallworth Room #: VALE [id number] Discharge Date: Birthdate: 1960 OPERATIVE REPORT DATE [...] Manuel Dunlap MD Date Trans: 05/23/2018 09:22 P/mmo [id number] cc: Colt Boggs M.D. [address] [place] [address] B [facility] [address] Normal [facility] POC GLUCOSE LABon 05-23-2018 Glucose mass conc 184 mg/dL High 70-100 [facility] Comment on above: Performed By: #### 8 5499 #### [address] PORTABLE CHEST 1 VIEWon PORTABLE CHEST 1 VIEW [facility] Department of Radiology [address] [place] [id number] Patient Name: SHABANA STALLWORTH : 1960 Sex: F Age: Race: White Pt. Location: [place] [address] Patient Status: I Ordered Date: 05/23/2018 1:15:00 [...] findings. Electronically signed by:Jewel Barnett. Transcribed by: [email or web address], User Resident: STORMY ACEVEDO Electronically Signed by: JEWEL BARNETT @ 05/23/2018 08:48 PM I personally read this/these film(s) with this resident Normal [facility] Comment on above: Order Comment: Check NG Tube Position, intubation PROLACTINon 05-23-2018 Protein mass conc 6.23 ng/mL Normal 1.39-24.20 [facility] Comment on above: Performed By: #### 2 5508, 94276, 64703, 36696 #### [facility] [address] [place] [address], [facility] TSH3 WITH REFLEXon 9 T4 free mass conc 1.23 ng/dL Normal 0.71-1.85 [facility] Comment on above: Order Comment: No: D o not add to previous draw Performed By: #### 2 5508, 29220, 40407, 07529 #### [facility] [address] TSH 3RD GENERATION 1.62 uIU/mL Normal 0.34-5.60 [facility] Comment on above: Order Comment: No: D o not add to previous draw Performed By: #### 2 5508, 19264, 02065, 87152 #### [facility] [address] Vital Signs Date Time Vital Sign Value Performing Clinician Facility 10-05-2024 10:31-0400 Body height 167.6 cm Colt Boggs MD Work Phone: [facility] 10-05-2024 10:31-0400 Body mass index (BMI) [Ratio] 35.67 kg/m2 Colt Boggs MD Work Phone: [facility] 10-05-2024 10:31-0400 Body weight 100.25 kg Colt Boggs MD Work Phone: [facility] 10-05-2024 10:31-0400 Heart rate 78 /min Colt Boggs MD Work Phone: [facility] 10-05-2024 10:31-0400 SaO2% (BldA) [Mass fraction] 97 % Colt Boggs MD Work Phone: [facility] 03-15-2024 09:23-0500 Body height 167.6 cm Colt Boggs MD Work Phone: [facility] 03-15-2024 09:23-0500 Body mass index (BMI) [Ratio] 35.51 kg/m2 Colt Boggs MD Work Phone: [facility] 03-15-2024 09:23-0500 Body weight 99.79 kg Colt Boggs MD Work Phone: [facility] 03-15-2024 09:23-0500 Diastolic blood pressure 76 mm[Hg] Colt Boggs MD Work Phone: [facility] 03-15-2024 09:23-0500 Heart rate 79 /min Colt Boggs MD Work Phone: [facility] 03-15-2024 09:23-0500 SaO2% (BldA) [Mass fraction] 98 % Colt Boggs MD Work Phone: [facility] 03-15-2024 09:23-0500 Systolic blood pressure 128 mm[Hg] Colt Boggs MD Work Phone: [facility] 02-04-2024 08:53-0400 Body height 167.6 cm Colt Boggs MD Work Phone: [facility] 02-04-2024 08:53-0400 Body mass index (BMI) [Ratio] 35.51 kg/m2 Colt Boggs MD Work Phone: [facility] 02-04-2024 08:53-0400 Body weight 99.79 kg Colt Boggs MD Work Phone: [facility] 12-08-2023 08:54-0400 Body height 167.6 cm Colt Boggs MD Work Phone: [facility] 12-08-2023 08:54-0400 Body mass index (BMI) [Ratio] 35.51 kg/m2 Colt Boggs MD Work Phone: [facility] 12-08-2023 08:54-0400 Body weight 99.79 kg Colt Boggs MD Work Phone: [facility] 12-08-2023 08:54-0400 Heart rate 75 /min Colt Boggs MD Work Phone: [facility] 12-08-2023 08:54-0400 SaO2% (BldA) [Mass fraction] 99 % Colt Boggs MD Work Phone: [facility] 05-30-2018 06:10-0500 Respiratory rate 12 /min EDWARD HEMEEDIN[facility] Comment on above: Performed By: #### 10998, 66295, 00769, 68087 #### [facility] [address] [place] [address], [facility] 05-27-2018 06:54-0500 Respiratory rate 12 /min EDWARD HEMEYER [facility] Comment on above: Performed By: #### 96557, 84202, 50297, 63616 #### [facility] [address] [place] [address], [facility] 05-26-2018 07:11-0500 Respiratory rate 12 /min EDWARD HEMEYER [facility] Comment on above: Performed By: #### [id number] #### [facility] [address] [place] [address], [facility] 05-25-2018 06:37-0500 Respiratory rate 12 /min EDWARD HEMEYER [facility] Comment on above: Performed By: #### [id number] #### [facility] [address] [place] [address], [facility] 05-24-2018 07:31-0500 Respiratory rate 12 /min EDWARD HEMEYER [facility] Comment on above: Performed By: #### [id number] #### [facility] [address] [place] [address], [facility] 05-23-2018 18:54-0500 Respiratory rate 12 /min EDWARD HEMEYER [facility] Comment on above: Performed By: #### [id number] #### [facility] [address] [place] [address], [facility] Encounters Encounter Date Encounter Type Care Provider Facility Start: 10-05-2024 End: 10-05-2024 Virginia Boggs MD Work Phone: [facility] Start: 10-05-2024 End: 10-05-2024 Bamboo flowsheet Colt Boggs MD Work Phone: [facility] Start: 10-05-2024 End: 10-05-2024 Office outpatient visit 25 minutes Colt Boggs MD Work Phone: [facility] Comment on above: Benign essential hyp ertension (Primary Dx); Hypertensive nephropathy ; Stage 2 chronic kidney disease; Type 2 diabetes mellitus with stage 2 chronic kidney disease, without long-term current use of insulin (HCC); Type 2 diabetes mellitus with hyperglycemia, without long-term current use of insulin (HCC); Mixed hyperlipidemia ; Morbid obesity due to excess calories (CMS-HCC); Postsurgical dumping syndrome; Myalgia due to statin Start: 10-05-2024 End: 10-05-2024 ambulatory COLT BOGGS Not Available Start: 09-21-2024 End: 09-21-2024 Clinisync Result Encounter Colt Boggs MD Work Phone: [facility] Unsolicited Start: 09-21-2024 End: 09-21-2024 Clinisync Result Encounter Colt Boggs MD Work Phone: [facility] Unsolicited Start: 08-01-2024 ambulatory COLT BOGGS [facility] Start: 07-06-2024 End: 07-06-2024 ambulatory COLT BOGGS Not Available Start: 03-15-2024 End: 03-15-2024 Bamboo flowskiera Boggs MD Work Phone: [facility] Start: 03-15-2024 End: 03-15-2024 Bamboo flowsheet Colt Boggs MD Work Phone: [...] without long-term current use of insulin (HCC) ([facility]) Start: 12-22-2023 End: 12-22-2023 ambulatory COLT BOGGS [...] without long-term current use of insulin (HCC) ([facility]); Class 2 severe obesity due to excess calories with serious comorbidity and body mass index (BMI) of 35.0 to 35.9 in adult ([facility]); Microalbuminuria Start: 12-08-2023 End: 12-08-2023 ambulatory COLT BOGGS Not Available Start: 10-08-2023 End: 10-08-2023 ambulatory COLT BOGGS Not Available Start: 08-13-2022 [...] Evaluation and management of inpatient COLT BOGGS Facility:[facility] Procedures Date Procedure Procedure Detail Performing Clinician Start: 09-21-2024 MLR HEMOGLOBIN A1C Edwa jalyn Boggs MD Work Phone: Start: 03-02-2024 ALL THYROXINE (T4) FREE Colt [...] 05-25-2018 FLUOROSCOPY OF SPINAL CORD EHAB A ANUSHKATAMAITE Start: 05-23-2018 INSERTION OF ENDOTRA CHEAL AIRWAY INTO TRACHEA, VIA OPENING REG RAHMAN Start: 05-23-2018 MEASURE OF ARTERIAL SATURATION, PERIPHERAL, PERC APPROACH MARC HAINES Start: 05-23-2018 MEASUREMENT OF STAINED GLASS PAINTER E LECTR ACTIVITY, LEADED GLASS INSTALLER APPROACH MARIBEL MARINELLI Start: 05-23-2018 MONITORING OF STAINED GLASS PAINTER EL ECTR ACTIVITY, LEADED GLASS INSTALLER APPROACH MARIBEL MARINELLI Start: 05-23-2018 RESPIRATORY VENTILAT ION, GREATER THAN 96 CONSECUTIVE HOURS REG RAHMAN Plan of Treatment Date Care Activity Detail Author Start: 01-04-2027 Screening for malign ant neoplasm of colon [facility] Start: 03-23-2026 Glaucoma screening Diabetes: R etinopathy Screening [facility] Start: 01-03-2025 End: 01-03-2025 Patient encounter procedure 01/03/2025 9:30 AM EDT Office Visit [facility] [address] [facility] [address] [place] [address] Colt Boggs MD [address] [facility] [address] [place] [address] (Fax) [facility] Start: 12-22-2024 Hemoglobin A1c measurement Diabetes: Hemoglobin A1C [facility] Start: 12-21-2024 Screening for malign ant neoplasm of breast Mammogram [facility] Start: 12-13-2024 Influenza vaccination [facility] Start: 12-07-2024 Urine screening for protein Diabetes: Urine Protein Screening [facility] Start: 10-05-2024 End: 10-05-2025 Hemoglobin A1c/Hemoglobin.total in Blood Hemoglobin A1c Lab Routine Type 2 diabetes mellitus with stage 2 chronic kidney disease, without long-term current use of insulin ([facility]) Expected: 10/05/2024 (Approximate), Expires: 10/05/2025 [facility] Work Phone: Comment on above: Expected: 10/05/2024 (Approximate), Expires: 10/05/2025 Start: 10-05-2024 End: 10-05-2024 Patient encounter procedure [facility] Comment on above: Benign essential hyp ertension ; Hypertensive nephropathy ; Stage 3a chronic kidney disease ([facility]); Type 2 diabetes mellitus with stage 3a chronic kidney disease, without long-term current use of insulin ([facility]); Mixed hyperlipidemia ; Morbid obesity due to excess calories ([facility]) Start: 06-08-2024 End: 06-08-2024 Patient encounter procedure 06/08/2024 9:00 AM EST Office Visit [facility] 112 [facility] [address] [place] [address] Colt Boggs MD [address] [address] (Fax) [facility] Start: 04-24-2024 Glaucoma screening Diabetes: R etinopathy Screening [facility] Start: 03-15-2024 End: 03-15-2025 Hemoglobin A1c/Hemoglobin.total in Blood Hemoglobin A1c Lab Routine Type 2 diabetes mellitus with stage 3a chronic kidney disease, without long-term current use of insulin (HCC) (CMS/HCC) Expected: 03/15/2024 (Approximate), Expires: 03/15/2025 [facility] Work Phone: Comment on above: Expected: 03/15/2024 [...] procedure 02/04/2024 9:00 AM EDT Office Visit [facility] [address] [address] Colt Boggs MD [address] [place] [address] (Fax) Bharat's disease (CMS/HCC); Acquired hypothyroidism (CMS/HCC); Chronic fatigue; Morbid obesity due to excess calories (CMS/HCC) [facility] Comment on above: Bharat's disease (CMS/HCC); Acquired hypothyroidism (CMS/HCC); Chronic fatigue; Morbid obesity due to excess calories (CMS/HCC) Start: 12-14-2023 Influenza vaccination Influenza Vacc ine (#1) [facility] Start: 12-08-2023 End: 02-06-2025 MG Breast - bilateral Screening Bilateral screening mammogram Imaging Routine Screening mammogram, encounter for Expected: 12/08/2023, Expires: 02/06/2025 [facility] Work Phone: Comment on above: Expected: 12/08/2023 , Expires: 02/06/2025 Start: 12-08-2023 End: 12-08-2023 Patient encounter procedure 12/08/2023 9:00 AM EDT Office Visit [facility] [address] [place] [address] Colt Boggs MD [address] [facility] [place] [address] (Fax) Encounter for wellness examination in adult; [...] screening for protein Diabetes: Urine Protein Screening [facility] Start: 02-05-2023 Hemoglobin A1c measurement Diabetes: Hemoglobin A1C [facility] Start: 02-27-2020 Screening for malign ant neoplasm of breast Mammogram [facility] Start: 01-26-1992 Screening for malign ant neoplasm of cervix [facility] Start: 1983 Screening for malign ant neoplasm of cervix Pap Smear [facility] Start: 1960 Screening for malign ant neoplasm of colon [facility] Noninvasive colorect al cancer DNA and occult blood screening [Presence] in Stool Cologuard colon cancer screening Lab Routine Encounter for screening for malignant neoplasm of colon Ordered: 12/08/2023 [facility] Comment on above: Ordered: 12/08/2023 Immunizations Immunization Date Immunization Notes Care Provider Fa [facility] 01-08-2017 influenza, injectabl e, quadrivalent, preservative free Colt Boggs MD Work Phone: [facility] 01-08-2017 influenza virus vacc ine, unspecified formulation Colt Boggs MD Work Phone: [facility] Payers Date Payer Category Payer Medicaid [id number] 2022 Medicaid [id number] 1960 Unknown [id number] 2.16.8 [id number] 1960 Unknown [id number] 2.16.84 0.1.839979.3.579.2.593 1960 Unknown [id number] 2.16.84 0.1.122851.3.579.2.593 1960 Unknown [id number] 2.16.84 0.1.586021.3.579.2.593 1960 Unknown [id number] 2.16.84 0.1.191870.3.579.2.593 1960 Unknown [id number] 2.16.84 0.1.438951.3.579.2.593 1960 Unknown [id number] 2.16. 840.1.856977.3.579.2.1286 1960 Unknown [id number] 2.16. 840.1.028591.3.579.2.1286 1960 Unknown [id number] 2.16.8 40.1.109693.3.579.2.1259 1960 Unknown [id number] 2.16.84 0.1.831104.3.579.2.1259 1960 Unknown [id number] 2.16.84 0.1.248510.3.579.2.1259 1960 Unknown [id number] 2.16.84 0.1.047662.3.579.2.1259 1960 Unknown [id number] 2.16.84 0.1.967221.3.579.2.1259 1960 Unknown [id number] 2.16.84 0.1.770583.3.579.2.1259 1960 Unknown [id number] 2.16.84 0.1.552014.3.579.2.1259 1959 Unknown [id number] 1959 Unknown [id number] Social History Date Type Detail Facility [facility]04[facility] Start: 12-04-2022 Tobacco use and exposure Smoke less tobacco non-user [facility] Start: 12-08-2023 End: 10-05-2024 Alcoholic beverage intake Lifetime non-drinker (finding) [facility] Start: 01-01-2023 End: 10-04-2024 History of Social function [facility] Start: 01-01-2023 End: 10-04-2024 Humiliation, Afraid, Rape, and Kick questionnaire [HARK] [facility] Within the last year , have you been afraid of your partner or ex-partner? No [facility] Do you belong to any clubs or organizations such as christianity groups, [employer], fraRemotemedical or athletic groups, or school groups? Yes [...] Not at all [facility] (I/We) worried wheclover er (my/our) food would run out before (I/we) got money to buy more. Never true [facility] Start: 11-12-2022 Education 21 [facility] Start: 1960 Sex assigned at Not on file [facility] NEGATED: Highlighted rowStart: NINF History of tobacco use Passive smoker [facility] Functional Status Date Assessment Result Facility 10-05-2024 Patient Health Quest ionnaire 2 item (PHQ-2) [Reported] [facility] Evaluation note 10-13-2024 Note Date & Type Note Facility 10-13-2024 Evaluation note Diagnosis Type 2 diabetes mellitus with stage 3a chronic kidney disease, without long-term current use of insulin (HCC) Mixed hyperlipidemia Mixed hyperlipidemia Benign essential hypertension Essential hypertension, benign Hypertensive nephropathy Unspecified hypertensive kidney disease with chronic kidney disease stage I through stage IV, or unspecified Stage 3a chronic kidney disease (CMS-HCC) Benign essential hypertension- Primary Essential hypertension, benign Hypertensive nephropathy Unspecified hypertensive kidney disease with chronic kidney disease stage I through stage IV, or unspecified Stage 2 chronic kidney disease Type 2 diabetes mellitus with stage 2 chronic kidney disease, without long-term current use of insulin (HCC) Type 2 diabetes mellitus with hyperglycemia, without long-term current use of insulin (HCC) Mixed hyperlipidemia Mixed hyperlipidemia Morbid obesity due to excess calories (CMS-HCC) Postsurgical dumping syndrome Myalgia due to statin documented in this encounter [facility] History of Present illness Narrative 10-05-2024 Colt Boggs MD - 10/05/2024 10:30 AM EDT Note Date & Type Note Facility 10-05-2024 History of Presen t illness Narrative Images from the original note were not included. Patient ID: Shabana Stallworth is a 64 y.o. female who presents for: Hypertension Patient is here for follow-up of elevated blood pressure. She is not exercising and is adherent to a low-salt diet. Blood pressure is not well controlled at home. Cardiac symptoms: none. Patient denies chest pain, dyspnea, irregular heart beat, lower extremity edema, and palpitations. Cardiovascular risk factors: diabetes mellitus, dyslipidemia, hypertension, obesity (BMI >= 30 kg/m2), and sedentary lifestyle. Use of agents associated with hypertension: thyroid hormones. History of target organ damage: none. Hyperlipidemia Pt who presents for follow-up of dyslipidemia. A repeat fasting lipid profile was not done. The patient does not use medications that may worsen dyslipidemias (corticosteroids, progestins, anabolic steroids, diuretics, beta-blockers, amiodarone, cyclosporine, olanzapine). Exercise: never. Diabetes Mellitus Patient presents for follow up [...] contact and speech is clear. Appropriate affect. 06/18/2023 11:14 AM 10/08/2023 10:30 AM 12/08/2023 8:54 AM 02/04/2024 8:53 AM 03/15/2024 9:23 AM 07/06/2024 9:01 AM 10/05/2024 10:31 AM Vitals BMI 34.38 kg/m2 35.51 kg/m2 35.51 kg/m2 35.51 kg/m2 35.51 kg/m2 35.83 kg/m2 35.67 kg/m2 BSA (m2) 2.12 m2 2.16 m2 2.16 m2 2.16 m2 2.16 m2 2.17 m2 2.16 m2 Systolic 124 122 128 128 Diastolic 78 78 76 80 Heart Rate 77 75 79 81 78 SpO2 98 % 99 % 98 % 97 % 97 % Height (in) 5' 6 5' 6 5' 6 5' 6 5' 6 5' 6 5' 6 Weight (lb) 213 220 220 220 220 222 221 Visit Report Report Report Report Report Report Report Report omponent Ref Range & Units 3 wk ago (09/21/24) 3 mo ago (07/03/24) 7 mo ago (03/02/24) 1 yr ago (10/07/23) 1 yr ago (06/16/23) GLYCOHEMOGLOBIN A1C 4.5 - 6.2 % 11.1 High 9.0 High CM 8.3 High CM 6.2 CM 7.4 High CM Comment: ADA RECOMMENDED LIMIT 4.0 - 6.0 ADA THERAPEUTIC TARGET < 7.0 ACTION SUGGESTED > 7.0 ESTIMATED AVERAGE GLUCOSE mg/dL 272 Allergies Allergen Reactions Semaglutide Other Reaction(s): nausea [...] time each day at the same time. levothyroxine (Synthroid, Levoxyl) 75 MCG tablet Take [...] time each day at the same time. empagliflozin (Jardiance) 25 MG Take 1 tablet (25 mg) by mouth Daily (Patient not taking: Reported on 10/05/2024) 30 tablet 2 No current facility-administered medications on file prior to visit. 1. Benign essential hypertension Chronic problem, stable, to goal. In prescribing a renewal to their current medication, consideration of the following encompasses moderate decision making; the current prescriptions and supplements, the current allergies and medication intolerances, current medical conditions, and potential drug interactions. The patient was given a chance to ask questions today and all questions were answered. - losartan (Cozaar) 100 MG tablet; Take 1 tablet (100 mg) by mouth Daily Dispense: 30 tablet; Refill: 2 - metoprolol tartrate (Lopressor) 50 MG tablet; Take 1 tablet (50 mg) by mouth in the morning and 1 tablet (50 mg) before bedtime. Dispense: 60 tablet; Refill: 2 2. Hypertensive nephropathy 3. Stage 2 chronic kidney disease 4. Type 2 diabetes mellitus with stage 2 chronic kidney disease, without long-term current use of insulin (HCC) Chronic problem unstable and not to goal. Due to a variety of issues the patient really has just received the Jardiance. She is going to start it. I discussed with her that if this does not help get her blood sugar under control we would have to start considering injectable medications. She does not want that. I have discussed with her that we have on numerous times talked about decreasing her carbohydrate intake in an exercise program and she has never been able to sustain any of this. - metFORMIN (Glucophage) 1000 MG tablet; Take 1 tablet (1,000 mg) by mouth in the morning and 1 tablet (1,000 mg) in the evening. Take with meals. Dispense: 60 tablet; Refill: 2 - Hemoglobin A1c; Future - Hemoglobin A1c 5. Type 2 diabetes mellitus with hyperglycemia, without long-term current use of insulin (HCC) As above 6. Mixed hyperlipidemia See the below discussion 7. Morbid obesity due to excess calories (CMS-HCC) See the above Lifestyle discussion 8. Postsurgical dumping syndrome (Primary) She is complaining of this significantly after certain meals. We talked about some options and the colestipol could also help her lipid profile. I discussed with her how to utilize this medication for dumping syndrome. In prescribing a new medication consideration of [...] with the adjustment in their medication. - colestipol (Colestid) 1 g tablet; Titrate from 1 to 2 tablets twice daily. Take at least 1 hour after or 4 hours before other medications. Dispense: 120 tablet; Refill: 1 9. Myalgia due to statin Many years ago had try to statin and we recently had her try Crestor which also cause this. documented in this encounter [facility] History [...] prior to visit. 1. Benign essential hypertension ([facility]) Chronic problem, stable, to goal. In prescribing [...] the morbid obesity documented in this encounter [facility] Evaluation note 03-15-2024 Note Date & [...] (CMS/HCC) BMI 35.0-35.9,adult documented in this encounter [facility] History of Present illness Narrative 02-04-2024 [...] file prior to visit. 1. Acquired hypothyroidism (CMS/HCC) (Primary) This is a complex chronic problem, [...] involvement before. She follows with and I foster care worker. 4. Chronic fatigue Chronic problem, stable, complex in nature with moderate decision making. I discussed with the patient and/or their outreach representative, their fatigue issues. We discussed how [...] evaluation and management. documented in this encounter [facility] Healthcare Evaluation note 02-04-2024 Note Date & Type [...] of repeat prescriptions documented in this encounter [facility] History of Present illness Narrative 12-08-2023 Colt Boggs MD - 12/08/2023 9:00 AM EDT Note Date & Type Note Facility 12-08-2023 History of Presen t illness Narrative Images from the original note were not included. Patient ID: Shabana Stallworth is a 63 y.o. female who presents for: See Scanned Wellness packet Advance Directive/Living Will: No Health Care Power of Segment Block Layer: No Review of Systems Constitutional: Negative for [...] through a living will, durable power of criminal attorney for healthcare, or other advanced directives. [...] without long-term current use of insulin (HCC) ([facility]) Patient was overdue And is screen today. - POCT microalbumin manually resulted 9. Class 2 severe obesity due to excess calories with serious comorbidity and body mass index (BMI) of 35.0 to 35.9 in adult ([facility]) Chronic problems and we have discussed [...] without long-term current use of insulin (HCC) ([facility]) Class 2 severe obesity due to excess calories with serious comorbidity and body mass index (BMI) of 35.0 to 35.9 in adult ([facility]) Microalbuminuria Proteinuria documented in this encounter [facility] Evaluation note Note Date & Type Note Facility Evaluation note Diagnosis Type 2 diabetes mellitus with stage 3a chronic kidney disease, without long-term current use of insulin (HCC) ([facility]) documented in this encounter [facility] Summary Purpose Family History No Family History Records FoundNo Family History Records FoundNo Family History Records FoundNo Family History Records Found Advance Directives No Advanced Directives Records FoundNo Advanced Directives Records FoundNo Advanced Directives Records FoundNo Advanced Directives Records Found Hospital Course Note MR#: [id number] [facility] Pt. Name: Shabana Stallworth Admitted: 05/23/2018 Discharged: 06/03/2018 Date of : 1960 Physician: Anas Renno, M.D. DISCHARGE SUMMARY PRIMARY CARE PHYSICIAN: Dr. [...] section and content) DATE CREATED AUTHOR 07/07/2018 [facility] DATE CREATED AUTHOR AUTHOR'S ORGANIZ ATION 08/20/2022 [facility] DATE CREATED AUTHOR AUTHOR'S ORGANIZ ATION 08/02/2024 [facility] DATE CREATED AUTHOR AUTHOR'S ORGANIZ ATION 10/06/2024 [facility] Care Teams (unrecognized sec tion and content) Mandrel Maker Relationship Specialty Start Date End Date Colt Boggs MD [address] [place] [address] PCP - General Family Medicine 10/16/22 Colt Boggs MD [address] [place] [address] PCP - JAN Ramey [facility] 07/14/23 Mandrel Maker Relationship Specialty Start Date End Date Colt Boggs MD [address] [place] [address] PCP - General Family Medicine 10/16/22 Colt Boggs MD [address] [place] [address] (Fax) PCP - [facility] 07/14/23 Mandrel Maker Relationship Specialty Start Date End Date Colt Boggs MD [address] [place] [address] PCP - General Family Medicine 10/16/22 Colt Boggs MD [address] [place] [address] (Fax) PCP - [facility] 07/14/23 Mandrel Maker Relationship Specialty Start Date End Date Colt Boggs MD (Fax) PCP - General Family Medicine 10/16/22 Colt Boggs MD [address] [place] [address] (Fax) PCP - [facility] 07/14/23 Mandrel Maker Relationship Specialty Start Date End Date Colt Boggs MD (Fax) PCP - General Family Medicine 10/16/22 Colt Boggs MD [address] [place] [address] (Fax) PCP - [facility] 07/14/23 Mandrel Maker Relationship Specialty Start Date End Date Colt Boggs MD (Fax) PCP - General Family Medicine 10/16/22 Colt Boggs MD [address] [place] [address] (Fax) PCP - [facility] 07/14/23 Mandrel Maker Relationship Specialty Start Date End Date Colt Boggs MD [address] [place] [place] [phone] PCP - General Family Medicine 10/16/22 Mandrel Maker Relationship Specialty Start Date End Date Colt Boggs MD [address] [place] [phone] PCP - General Family Medicine 10/16/22 Mandrel Maker Relationship Specialty Start Date End Date Colt Boggs MD [address] [place] [address] PCP - General Family Medicine 10/16/22 Colt Boggs MD [address] [place] [address] (Fax) PCP - [facility] 07/14/23 Mandrel Maker Relationship Specialty Start Date End Date Colt Boggs MD (Fax) PCP - General Family Medicine 10/16/22 Colt Boggs MD [address] [place] [address] (Fax) PCP - [facility] 07/14/23 Mandrel Maker Relationship Specialty Start Date End Date Colt Boggs MD (Fax) PCP - General Family Medicine 10/16/22 Colt Boggs MD [address] [facility] [place] [address] PCP - [facility] 07/14/23 Mandrel Maker Relationship Specialty Start Date End Date Colt Boggs MD PCP - General Family Medicine 10/16/22 Colt Boggs MD [address] [facility] [place] [address] PCP - [facility] R[facility] 07/14/23 Reason for Visit (unrecogniz ed [...] BE BASED ON THE PRIMARY CLINICAL RECORDS. [facility] [employer] [facility]. provides no warranty or guarantee of the accuracy or completeness of information in this document.
[2025-01-07 09:23] LABS: Microalbum Creatinine Ratio Ur 60.3 mg/g (0.0-29.9)
== END 2025-01-07 08:24 | disposition home or self-care (01) ==
PROVIDERS: PCP Family Medicine; Visit Provider Family Medicine
DX: I12.9 Hypertensive chronic kidney disease with stage 1 through stage 4 chronic kidney disease, or unspecified chronic kidney disease (principal); N18.31 Chronic kidney disease, stage 3a; E11.22 Type 2 diabetes mellitus with diabetic chronic kidney disease
CPT/HCPCS: 36415; 82043; 82570; 83036

== ENCOUNTER 2025-03-04 08:30 | Outpatient (OUT) | payer MEDICAID, SELFPAY ==
--- OUTSIDE RECORDS SUMMARY | 2025-03-04 08:32 | XMS_ITS | Clinical Summary ---
Author Organization Therative [facility] tem Address [id number] [address] [place] [address] Care Team Providers Care Impregnator Helper Name Role Phone Colt Roland MD Primary Care Provider [phone] Allergies Active AllergyReactionsCriticalityNoted DateCommentsNalbuphine NUBAIN Medications MedicationSigDispense QuantityRefillsLast FilledStart DateEnd DateStatus losartan (COZAAR) 100 mg tablet Take 100 mg by mouth daily.Active metFORMIN (GLUCOPHAGE) 1000 mg tablet Take 1,000 mg by mouth 2 (two) times a day with meals.Active metoprolol tartrate (LOPRESSOR) 50 mg tablet Take 50 mg by mouth 2 (two) times a day.Active potassium 99 mg tablet Take 99 mg by mouth daily.Active aspirin (ASPIR-81 ORAL) Take 81 mg by mouth daily.Active BIOTIN ORAL Take 1,000 mg by mouth daily.Active levothyroxine (SYNTHROID, LEVOTHROID) 50 MCG tablet Take 50 mcg by mouth daily.Active TRULICITY 1.5 mg/0.5 mL pen injector INJECT 1 (ONE) pen SUBCUTANEOUSLY EVERY peno18607/07/2018Active Social History Tobacco UseTypesPacks/DayYears UsedDateSmoking Tobacco: NeverSmokeless Tobacco: NeverAlcohol UseStandard Drinks/WeekCommentsNo0 (1 standard drink = 0.6 oz pure alcohol)AUDIT-CAnswerDate RecordedFrequency of Alcohol ConsumptionNever 07/13/2018Average Number of DrinksNot on file07/13/2018Frequency of Binge DrinkingNot on file07/13/2018ChildcareAnswerDate RecordedChildcareUnknown 09/22/2018EmploymentAnswerDate ZftksrshZtlqalhggcRyzvdbi30/11/2019Purpose - Life AnswerDate RecordedPurpose and direction in kxnkBngwzwu06/10/2021 CommentsNoSex and Gender InformationValueDate RecordedSex Assigned at BirthNot on fileLegal GrkSbjnrr94/04/2015 6:34 PM EDTGender IdentityNot on fileSexual OrientationNot on file Last Filed Vital Signs Vital SignReadingTime TakenCommentsBlood Puwzrkwa560/80624 9:50 AM EDT out of one of her BP grjlDwehu7065/02/2019 11:25 AM TBOEdrshcafynt71.6 ??C (97.9 ??F)06/13/2018 11:25 AM ESTRespiratory Rdfj782806/13/2018 11:25 AM ESTOxygen Saturation--Inhaled Oxygen Concentration--Uhpldr97.6 kg (202 lb)07/20/2018 9:50 AM POGOaussy123.9 cm (5' 6.5 )07/20/2018 9:50 AM EDTBody Mass Index32.12 07/20/2018 9:50 AM EDT Plan of Treatment Health MaintenanceDue DateLast DoneCommentsDepression Qqbjdtvkl95/14/1974Tobacco Lrsizxxvh12/14/1974Adult BMI Gduepbkio16/14/1980DTaP,Tdap and Td Vaccines (1 - Tdap)1981Pap Smear1983Zoster (Shingles) Vaccine (1 of 2)01/26/2012 Influenza Dpoihtb84/01/86112701/08/2017RSV ( or age 60+ yrs) (1 - 1-dose 75+ series)2037 [employer] Not on file Insurance Care Teams Team MemberRelationshipSpecialtyStart DateEnd Date Colt Roland MD [facility]/04/18
--- OUTSIDE RECORDS SUMMARY | 2025-03-04 08:33 | XMS_ITS | Encounter Summary ---
Author Organization [facility] Address [address] [place] [address] Care Team Providers Care Insole And Outsole Preparer Name Role Phone Colt Roland MD Unavailable [phone] Colt Roland MD Primary Care Provider [phone] Reason for Visit * ReasonCommentsMed Change Request Encounter Details DateTypeDepartmentCare Team (Latest Contact Info)Isnwevejcxx73/11/2025Telephone [facility] [address] [place] [address] Colt Roland MD [address] [place] [address] Med Change Request Social History Tobacco UseTypesPacks/DayYears UsedDateSmoking Tobacco: NeverPassive Smoke Exposure: NeverSmokeless Tobacco: NeverAlcohol UseStandard Drinks/WeekComments Never0 (1 standard drink = 0.6 oz pure alcohol)B1300 Health LiteracyAnswerDate RecordedHow often do you need to have someone help you when you read instructions, pamphlets, or other written material from your doctor or pharmacy? Never10/04/2024Humiliation, Afraid, Rape, and Kick questionnaireAnswerDate RecordedWithin the last year, have you been afraid of your partner or ex-partner?No10/04/2024Within the last year, have you been humiliated or emotionally abused in other ways by your partner or ex-partner?No10/04/2024 Within the last year, have you been kicked, hit, slapped, or otherwise physically hurt by your partner or ex-partner?No10/04/2024Within the last year, have you been raped or forced to have any kind of sexual activity by your part ner or ex-partner?No10/04/2024Social Connection and Isolation PanelAnswerDate RecordedIn a typical week, how many times do you talk on the phone with family, friends, or neighbors?Twice a week10/04/2024How often do you get together with friends or relatives?Three times a week10/04/2024How often do you attend protestant or zoroastrian services?More than 4 times per year10/04/2024Do you belong to any clubs or organizations such as protestant groups, unions, n[employer] or athletic danita ups, or school groups?Yes10/04/2024How often do you attend meetings of the clubs or organizations you belong to?More than 4 times per year10/04/2024re you , , , , never , or living with a partner? Prsqvtp6910/04/2024UDIT-CAnswerDate RecordedQ1: How often do you have a drink containing alcohol?Never10/04/2024Q2: How many drinks containing alcohol do you have on a typical day when you are drinking?Patient does not drink10/04/2024Q3: How often do you have six or more drinks on one occasion?Never10/04/2024Overall Financial Resource Strain (CARDIA)AnswerDate RecordedHow hard is it for you to pay for the very basics like food, housing, medical care, and heating?Patient dccbiyze62/23/2025PHQ-2AnswerDate RecordedPatient Health Questionnaire-2 Score0 02/09/2025[facility] of Occupational Health - Occupational Stress QuestionnaireAnswerDate RecordedDo you feel stress - tense, restless, nervous, or anxious, or unable to sleep at night because yourmind is troubled all the time - these days?Not at all10/04/2024Exercise Vital SignAnswerDate RecordedOn average, how many days per week do you engage in moderate to strenuous exercise (like a brisk walk)?0 days10/04/2024Minutes of Exercise per SessionNot on file 10/04/2024Hunger Vital SignAnswerDate RecordedWithin the past 12 months, you worried that your food would run out before you got the money to buymore.Patient ugnrxgrj87/23/2025Within the past 12 months, the food you bought just didn't last and you didn't have money to get more.Patient asfirxyj48/23/2025PRAPARE - TransportationAnswerDate RecordedIn the past 12 months, has lack of transportation kept you from medical appointments or from getting medications?No 10/04/2024In the past 12 months, has lack of transportation kept you from meetings, work, or from getting things needed for daily living?No10/04/2024 Housing Stability Vital SignAnswerDate RecordedIn the last 12 months, was there a time when you were not able to pay the mortgage or rent on time?Patient wntdymi4901/01/2023In the last 12 months, how many places have you lived?1 01/01/2023In the last 12 months, was there a time when you did not have a steady place to sleep or slept in [place] (including now)?No01/01/2023Housing Stability Vital SignAnswerDate RecordedIn the last 12 months, was there a time when you were not able to pay the mortgage or rent on time?Patient declined 10/04/2024Number of Times Moved in the Last YearNot on file10/04/2024t any time in the past 12 months, were you homeless or living in a [facility] (including now)? No10/04/2024EducationAnswerDate RecordedWhat is the highest level of school you have completed or the highest degree you have received?Some college, no degree 11/12/2022CommentsNoSex and Gender InformationValueDate RecordedSex Assigned at BirthNot on fileLegal IkuTklxik64/15/2023 6:50 PM EDTGender Identity Not on fileSexual OrientationNot on fileOccupationIndustryJob Start DateJob End DateDaycare workerNot on fileNot on fileNot on filedocumented as of this encounter Miscellaneous Notes * Telephone Encounter - Colt Roland MD - 02/23/2025 2:01 PM EST Prescription reviewed, adjusted, and recent. * Telephone Encounter - Susie Rizvi MA - 02/23/2025 1:44 PM EST Copied from : De, this is Claudette from [facility] and [facility] just calling for a mutual patient. Shabana Tineo, date of is [id number] am just calling for the pensive needles that were sent in yesterday forher. It just says to inject continuously, we do need how many times on the script that she is Usingthough so we can bill it through insurance for a day supply least give us a call back at for [phone]. That would be great. Thank you by. documented in this encounter Plan of Treatment Not on file documented as of this encounter Visit Diagnoses Diagnosis Type 2 diabetes mellitus with stage 3a chronic kidney disease, with long-term current use of insulin (HCC) documented in this encounter Care Teams Team MemberRelationshipSpecialtyStart DateEnd Date Colt Roland MD [address] [address] PCP - [facility] LABOY/05/07 Colt Roland MD [address] [address] PCP - GeneralFamily Sbkowtdi69/29/25documented as of this encounter
--- OUTSIDE RECORDS SUMMARY | 2025-03-04 08:33 | XMS_ITS | Clinical Summary ---
Author Organization [facility] Healthcare Address [address] [place] [address] Care Team Providers Care Machine Brush Maker Name Role Phone Colt Roland MD Unavailable [phone] Colt Roland MD Primary Care Provider [phone] Allergies Active AllergyReactionsCriticalityNoted DateCommentsRosuvastatinOtherLow 06/18/2023 Bad muscle and Joint Pain NalbuphineGI qbiqkipdpxsPmq74/25/6231WspoanytgozMugown47/25/2023 Other Reaction(s): nausea and vomiting, hair fell out Medications MedicationSigDispense QuantityRefillsLast FilledStart DateEnd DateStatus aspirin 81 MG EC tablet Take 81 mg by mouth 1 (one) time each day at the same time.Active biotin 1 MG capsule Take 1 capsule by mouth 1 (one) time each day at the same time.Active Potassium 99 MG tablet Take 99 mg by mouth 1 (one) time each day at the same time.Active Continuous Glucose Pt Escort (FreeStyle Sincere 3 [place]) device Indications:Benign essential hypertension,Type 2 diabetes mellitus with stage 3a chronic kidney disease, with long-term current use of insulin (HCC),Type 2 diabetes mellitus with hyperglycemia, with long-term current use of insulin ([facility])1 Device See administration instructions 1 each 5Active Continuous Glucose Sensor (FreeStyle Sincere 3 Sensor) [facility] Indications:Benign essential hypertension,Type 2 diabetes mellitus with stage 3a chronic kidney disease, with long-term current use of insulin (HCC),Type 2 diabetes mellitus with hyperglycemia, with long-term current use of insulin ([facility])Inject 1 Device under the skin every 14 (fourteen) days 6 each 5Active Continuous Glucose Sensor (Simplera System) [facility] Indications:Type 2 diabetes mellitus with stage 3a chronic kidney disease, with long-term current use of insulin ([facility]),Type 2 diabetes mellitus with hyperglycemia, with long-term current use of insulin ([facility])1 Device Daily Please use device system approved by insurance 1 each ctive Continuous Glucose Sensor (Simplera Sensor) [facility] Indications:Type 2 diabetes mellitus with stage 3a chronic kidney disease, with long-term current use of insulin ([facility]),Type 2 diabetes mellitus with hyperglycemia, with long-term current use of insulin ([facility])1 Application every 14 (fourteen) days Inject 1 Device under the skin every 14 (fourteen) days, usewith device covered by insurance 5 each tive metFORMIN (Glucophage) 1000 MG tablet Indications:Type 2 diabetes mellitus with stage 2 chronic kidney disease, without long-term current use of insulin ([facility])Take 1 tablet (1,000 mg) by mouth in the morning and 1 tablet (1,000 mg) in the evening. Take with meals. 60 tablet ctive losartan (Cozaar) 100 MG tablet Indications:Benign essential hypertensionTake 1 tablet (100 mg) by mouth Daily 30 tablet ctive metoprolol tartrate (Lopressor) 50 MG tablet Indications:Benign essential hypertensionTake 1 tablet (50 mg) by mouth in the morning and 1 tablet (50 mg) before bedtime. 60 tablet ctive colestipol (Colestid) 1 g tablet Indications:Postsurgical dumping syndromeTitrate from 1 to 2 tablets twice daily. Take at least 1 hour after or 4 hours before other medications. 120 tablet tive insulin glargine (Lantus SoloStar) 100 UNIT/ML pen Indications:Type 2 diabetes mellitus with hyperglycemia, with long-term current use of insulin ([facility])Inject 20 Units under the skin Daily 15 mL /ctive levothyroxine (Synthroid, Levoxyl) 75 MCG tablet Indications:Acquired hypothyroidismTake 1 tablet (75 mcg) by mouth in the morning. Take before meals. 30 tablet ctive insulin pen needle (Pentips Generic Pen Theodore) 31G X 8 mm [facility] Indications:Type 2 diabetes mellitus with stage 3a chronic kidney disease, with long-term current use of insulin ([facility])Use to inject insulin daily 90 each 5Active levothyroxine (Synthroid, Levoxyl) 75 MCG tablet Indications:Acquired hypothyroidismTake 1 tablet (75 mcg) by mouth in the morning. Take before meals. 30 tablet 111/Discontinued(Reorder) colestipol (Colestid) 1 g tablet Indications:Postsurgical dumping syndromeTitrate from 1 to 2 tablets twice daily. Take at least 1 hour after or 4 hours before other medications. 120 tablet Discontinued(Reorder) insulin glargine (Basaglar KwikPen) 100 UNIT/ML pen Indications:Benign essential hypertension,Type 2 diabetes mellitus with stage 3a chronic kidney disease, with long-term current use of insulin ([facility]),Type 2 diabetes mellitus with hyperglycemia, with long-term current use of insulin ([facility])Inject 20 Units under the skin Daily 6 mL Discontinued(Reorder) empagliflozin (Jardiance) 25 MG Indications:Type 2 diabetes mellitus with stage 3a chronic kidney disease, without long-term current use of insulin ([facility])Take 1 tablet (25 mg) by mouth Daily 30 tablet Discontinued(Side effects) losartan (Cozaar) 100 MG tablet Indications:Benign essential hypertensionTake 1 tablet (100 mg) by mouth Daily 30 tablet Discontinued(Reorder) metFORMIN (Glucophage) 1000 MG tablet Indications:Type 2 diabetes mellitus with stage 2 chronic kidney disease, without long-term current use of insulin ([facility])Take 1 tablet (1,000 mg) by mouth in the morning and 1 tablet (1,000 mg) in the evening. Take with meals. 60 tablet Discontinued(Reorder) metoprolol tartrate (Lopressor) 50 MG tablet Indications:Benign essential hypertensionTake 1 tablet (50 mg) by mouth in the morning and 1 tablet (50 mg) before bedtime. 60 tablet /Discontinued(Reorder) insulin glargine (Basaglar KwikPen) 100 UNIT/ML pen Indications:Benign essential hypertension,Type 2 diabetes mellitus with hyperglycemia, with long-term current use of insulin (HCC)Inject 20 Units under the skin Daily 6 mL Discontinued cefuroxime (Ceftin) 500 MG tablet Indications:Pneumonia of right lower lobe due to infectious organismTake 1 tablet (500 mg) by mouth in the morning and 1 tablet (500 mg) before bedtime. Do all this for 10 days. 20 tablet Expired Basaglar KwikPen 100 UNIT/ML pen Indications:Benign essential hypertension,Type 2 diabetes mellitus with stage 3a chronic kidney disease, with long-term current use of insulin (HCC),Type 2 diabetes mellitus with hyperglycemia, with long-term current use of insulin ([facility])INJECT 20 UNITS SUBCUTANEOUSLY (UNDER THE SKIN) DAILY 15 mL Discontinued(Formulary change) pen needle 31G x 8 mm misc Indications:Type 2 diabetes mellitus with stage 3a chronic kidney disease, with long-term current use of insulin ([facility])Injection subcutaneous 200 each Discontinued Active Problems ProblemNoted DateDiagnosed DateChronic njuvdeg1501/28/2024Morbid obesity due to excess phspociw23/16/2024Myalgia due to snoamb8510/22/2023cquired hypothyroidism 11/05/2022enign essential fduujkwvrarl34/25/2023raves ahldljk0211/05/2022 Bharat's lxnvybw9111/05/2022Hypertensive dpawgmxurfb88/25/2023Mixed qfjegvpbfxmzaa87/25/2023ostsurgical dumping hcvdwpxu79/25/2023Restless leg /25/2023Stage 3a chronic kidney kudeect7211/05/2022 Assessment & Plan (12/14/2022 10:41 AM EDT): [...] and blood sugar to goal, staying well hydrated,and aerobic exercises as tolerated. Continue to monitor longitudinally. Type 2 diabetes mellitus with diabetic chronic kidney bmznadi3511/05/2022Venous oyhqibaiajcgu26/25/2023 Resolved Problems ProblemNoted DateDiagnosed DateResolved DateClass 2 severe obesity due to excess calories with serious comorbidity and body mass index (BMI) of35.0 to 35.9 in adult/hronic fatigue egodnecc06 Encounters DateTypeDepartmentCare EobsLxctdjuetft57/18/2025Telephone [facility] [place] [address] Dmitri July, MA Care Luaouxcdecfg45/11/2025Telephone [address] [address] Colt Roland MD Med Change Ltsdlsl0802/17/2025Orders Only [address] [address] Dmitri July, Acquired ygjuinqqnlusid65/29/2025 9:30 AM EDTOffice Visit [address] [place] [address] Colt Roland MD Pneumonia of right lower lobe due to infectious organism (Primary Dx); Benign essential hypertension; Hypertensive nephropathy; Mixed hyperlipidemia; Myalgia due to statin; Morbid obesity due to excess calories ([facility]); BMI 35.0-35.9,adult; Type 2 diabetes mellitus with stage 2 chronic kidney disease, without long-term current use of insulin (HCC); Type 2 diabetes mellitus with hyperglycemia, with long-term current use of insulin ([facility]); Postsurgical dumping dqrigfzs08/29/2025Telephone [facility] [place] [address] Colt Roland MD Med Change Zoiykju1502/09/2025[address]ill [address] [address] [place] [address] Colt Roland MD Benign essential hypertension; Type 2 diabetes mellitus with stage 3a chronic kidney disease, with long-term current use of insulin (HCC); Type 2 diabetes mellitus with hyperglycemia, with long-term current use of insulin (HCC)02/09/2025amboo flowsheet [facility] [address] [address] [place] [address] Colt Roland MD 02/09/20253405Uzneai86/26/2025linisync Result Encounter [facility] External Department Unsolicited Colt Roland MD 01/06/2025Refill [address] [address] [place] [address] Colt Roland MD Type 2 diabetes mellitus with hyperglycemia, with long-term current use of insulin (HCC) (Primary Dx); Benign essential hypertension ; Type 2 diabetes mellitus with stage 3a chronic kidney disease, with long-term current use of insulin (HCC); Type 2 diabetes mellitus with stage 3a chronic kidney disease, without long-term current use of insulin (HCC); Type 2 diabetes mellitus with stage 2 chronic kidney disease, without long-term current use of insulin (HCC)01/05/2025Telephone [address] [address] [place] [address] Dmitri July, LIDIA Care Fxqiqkywpjgg18/16/2025Telephone [address] [place] [address] Dmitri July, LIDIA Lab Eimyta9712/28/2024Orders Only [address] [place] [address] Dmitri July, Acquired hypothyroidism ; Bharat's disease ; Graves disease ; Chronic fatiguefrom Last 3 Months Immunizations ImmunizationAdministration DatesNext DueInfluenza, injectable, quadrivalent, preservative free01/08/2017 Family History Medical HistoryRelationNameCommentsLearning disabilitiesDaughter 2AudraNo Known ProblemsFatherDiabetesMotherJoanHypertensionMotherJoanKidney diseaseMotherJoan Autoimmune diseaseSister 1Thyroid diseaseSister 2DiabetesSister 3Marj HypertensionSister 3MarjAsthmaSon 1JordanLearning disabilitiesSon 1Jordan Learning disabilitiesSon 2Jordan MorellRelationNameStatusCommentsDaughter 1Alive c5Umvudrpx 2AudraFatherAliveMotherJoanAliveSister 1Sister 2AliveSister 3MarjSon 6SjjqppEsauvu1Pqy 2Jordan Gayle Social History Tobacco UseTypesPacks/DayYears UsedDateSmoking Tobacco: NeverPassive Smoke Exposure: NeverSmokeless Tobacco: Never Tobacco Cessation:Counseling Given: Yes Alcohol UseStandard Drinks/WeekCommentsNever0 (1 standard drink = 0.6 oz pure alcohol)B1300 Health LiteracyAnswerDate RecordedHow often do you need to have someone help you when you read instructions, pamphlets, or other written material from your doctor or pharmacy?Never10/04/2024Humiliation, Afraid, Rape, and Kick questionnaireAnswerDate RecordedWithin the last year, have you been afraid of your partner or ex-partner?No10/04/2024Within the last year, have you been humiliated or emotionally abused in other ways by your partner or ex-partner?No10/04/2024Within the last year, have you been kicked, hit, slapped, or otherwise physically hurt by your partner or ex-partner?No10/04/2024Within the last year, have you been raped or forced to have any kind of sexual activity by your partner or ex-partner?No10/04/2024Social Connection and Isolation Panel AnswerDate RecordedIn a typical week, how many times do you talk on the phone with family, friends, or neighbors?Twice a week10/04/2024How often do you get together with friends or relatives?Three times a week10/04/2024How often do you attend mormon or faith services?More than 4 times per year10/04/2024Do you belong to any clubs or organizations such as mormon groups, unions, fraternal or athletic groups, or school groups?Yes10/04/2024How often do you attend meetings of the clubs or organizations you belong to?More than 4 times per year10/04/2024 Are you , , , , never , or living with a partner?Rynglfg0510/04/2024UDIT-CAnswerDate RecordedQ1: How often do you have a drink containing alcohol?Never10/04/2024Q2: How many drinks containing alcohol do you have on a typical day when you are drinking?Patient does not drink 10/04/2024Q3: How often do you have six or more drinks on one occasion?Never 10/04/2024Overall Financial Resource Strain (CARDIA)AnswerDate RecordedHow hard is it for you to pay for the very basics like food, housing, medical care, and heating?Patient scfmzaqg50/23/2025PHQ-2AnswerDate RecordedPatient Health Questionnaire-2 Oguvz792Finsevier [facility] [place] of Occupational Health - Occupational Stress QuestionnaireAnswerDate RecordedDo you feel stress - tense, restless, nervous, or anxious, or unable to sleep at night because yourmind is troubled all the time - these days?Not at all10/04/2024Exercise Vital SignAnswer Date RecordedOn average, how many days per week do you engage in moderate to strenuous exercise (like a brisk walk)?0 days10/04/2024Minutes of Exercise per SessionNot on file10/04/2024Hunger Vital SignAnswerDate RecordedWithin the past 12 months, you worried that your food would run out before you got the money to buymore.Patient bfyfqkoz06/23/2025Within the past 12 months, the food you bought just didn't last and you didn't have money to get more.Patient declined 10/04/2024PRAPARE - TransportationAnswerDate RecordedIn the past 12 months, has lack of transportation kept you from medical appointments or from getting medications?No10/04/2024In the past 12 months, has lack of transportation kept you from meetings, work, or from getting things needed for daily living?No 10/04/2024Housing Stability Vital SignAnswerDate RecordedIn the last 12 months, was there a time when you were not able to pay the mortgage or rent on time? Patient ixterii6601/01/2023In the last 12 months, how many places have you lived?1 01/01/2023In the last 12 months, was there a time when you did not have a steady place to sleep or slept in ashelter (including now)?No01/01/2023Housing Stability Vital SignAnswerDate RecordedIn the last 12 months, was there a time when you were not able to pay the mortgage or rent on time?Patient declined 10/04/2024Number of Times Moved in the Last YearNot on file10/04/2024t any time in the past 12 months, were you homeless or living in a snf (including now)? No10/04/2024EducationAnswerDate RecordedWhat is the highest level of school you have completed or the highest degree you have received?Some college, no degree 11/12/2022CommentsNoSex and Gender InformationValueDate RecordedSex Assigned at BirthNot on fileLegal HtfLvsvpe93/15/2023 6:50 PM EDTGender Identity Not on fileSexual OrientationNot on fileOccupationIndustryJob Start DateJob End DateDaycare workerNot on fileNot on fileNot on file Last Filed Vital Signs Vital SignReadingTime TakenCommentsBlood Dfmttjeb486/7802/09/2025 9:40 AM EDT Idycq751002/09/2025 9:40 AM EDTTemperature--Respiratory Rate--Oxygen Ubzdyqzdrb03% 02/09/2025 9:40 AM EDTInhaled Oxygen Concentration--Ejcvlc563 kg (221 lb) 02/09/2025 9:40 AM KAQMscvcq344.6 cm (5' 6 )02/09/2025 9:40 AM EDTBody Mass Index35.6702/09/2025 9:40 AM EDT Plan of Treatment Health MaintenanceDue DateLast DoneCommentsCT Mkpwngrwkgdn1962olonoscopy 1962FIT1962FOBT1962 9723Jyguzypovereb1962ap Smear1983 Cervical Cancer Sovaqgwrp33/14/1992HPV/Vdcjxh2701/26/19924721Uolvhpcln94/09/2025 12/22/2023, 02/26/2019Diabetes: Hemoglobin A1C, 09/21/2024, 11/05/2022, Additional history existsInfluenza Vaccine (#1)/ Postponed from 12/13/2024 (Patient Refused)Diabetes: Urine Protein Screening /, 12/08/2023, 08/14/2020, Additional history existsDiabetes: Retinopathy Yxxojqglx52, 03/23/2024, 04/24/2022, Additional history existsColorectal Cancer Mqnuyjwia08/23/2027FIT-DNA COVID-19 VaccineDiscontinuedPneumococcal Vaccine: Pediatrics (0 to 5 Years) and At-Risk Patients (6 to 64 Years)Discontinued Procedures Procedure NamePriorityDate/TimeAssociated DiagnosisCommentsMLR HEMOGLOBIN A1C Wuhqoeb1701/07/2025 8:34 AM EDT TBH MICROALB CREAT RATIO WJOZUYNswtwts88/26/2025 8:25 AM EDT DIABETIC RETINOPATHY SCREENING - OU - BOTH PYTPDngawyg92/10/2024 5:10 PM ESTLAB COLOGUARD?? COLON CANCER VNZVWSIgmdyfp89/23/2024 10:30 AM EDT Encounter for screening for malignant neoplasm of colon BI MAMMOGRAM SCREENING TOMOSYNTHESIS CKRBPNYOSRgdunhi35/09/2024 8:44 AM EDT Screening mammogram, encounter for POCT YRPOVNZCURPJXxqanwz14/26/2024 9:21 AM EDT Type 2 diabetes mellitus with stage 3a chronic kidney disease, without long-term current use of insulin (HCC) HEMOGLOBIN T4EIwztvcq24/25/2023 Type 2 diabetes mellitus with stage 3a chronic kidney disease, without long-term current use of insulin ([facility]) from Last 3 Months or Most Recently Relevant to Health Maintenance Results * (ABNORMAL) MLR HEMOGLOBIN A1C (01/07/2025 8:34 AM EDT)ComponentValueRef Range Test MethodAnalysis TimePerformed AtPathologist SignatureGLYCOHEMOGLOBIN A1C 9.2(H)4.5 - 6.2 %TBHComment: ADA RECOMMENDED LIMIT 4.0 - 6.0 ADA THERAPEUTIC TARGET < 7.0 ACTION SUGGESTED > 7.0 ESTIMATED AVERAGE FCCSGRY740og/dLTBHSpecimen (Source)Anatomical Location / LateralityCollection Method / VolumeCollection TimeReceived Time01/07/2025 8:34 AM EDT01/07/2025 8:41 AM EDT Narrative CLINISYNC - 01/07/2025 9:24 AM EDT Authorizing ProviderResult TypeResult StatusColt Roland MDCLINISYNCFinal ResultPerforming OrganizationAddressCity/State/ZIP CodePhone Number CLINISYNC [facility] * (ABNORMAL) TBH MICROALB CREAT RATIO RANDOM (01/07/2025 8:25 AM EDT)Component ValueRef RangeTest MethodAnalysis TimePerformed AtPathologist Signature MICROALBUMIN URINE RANDOM2.9<=30.0 mg/dLTBHCREATININE URINE BKYZPW54.0520.00 - 300.00 mg/dLTBHMICROALBUM CREATININE RATIO UR60.3(H)0.0 - 29.9 mg/gTBHComment: NO MICROALBUMINURIA ?0-29 MG/G CLINICAL MICROALBUMINURIA ??30-300 MG/G MACROALBUMINURIA >300 MG/G Specimen (Source)Anatomical Location / LateralityCollection Method / Volume Collection TimeReceived Time01/07/2025 8:25 AM EDT01/07/2025 8:41 AM EDT Narrative CLINISYNC - 01/07/2025 9:24 AM EDT Authorizing ProviderResult TypeResult StatusColt Roland MDCLINISYNCFinal ResultPerforming OrganizationAddressCity/State/ZIP CodePhone Number [facility] * Diabetic Retinopathy Screening - OU - Both Eyes (03/23/2024 5:10 PM EST) Anatomical RegionLateralityModalityHeadOther Narrative Authorizing ProviderResult TypeResult StatusEdirma Roland MDOPHDIMAS PHOTOGRAPHY Final Result * Cologuard?? colon cancer screening (01/05/2024 10:30 AM EDT)ComponentValueRef RangeTest MethodAnalysis TimePerformed AtPathologist SignatureNONINV COLON CA DNA+OCC BLD SCRN STL-ZPKAznewfdlJybqxtst36/26/2024 9:40 AM EDTEXGlenRose Instruments (CLIA #:[id number])Comment: NEGATIVE TEST RESULT. A negative Cologuard result indicates a low likelihood that a colorectal cancer (CRC) or advanced adenoma (adenomatous polyps with more advanced pre-malignant features) ??is present. The chance that a person with a negative Cologuard test has a colorectal cancer is less than 1in 1500 (negative predictive value >99.9%) or has an advanced adenoma is less than 5.3% (negative predictive value 94.7%). These data are based on a prospective cross-sectional study of 10,000individuals at average risk for colorectal cancer who were screened with both Cologuard and colonoscopy. (Kaylee T. et al, N Engl J Med 2014;370(14):9256-6205) The normal value (reference range) for this assay is negative. COLOGUARD RE-SCREENING RECOMMENDATION: Periodic colorectal cancer screening is an important part ofpreventive healthcare for asymptomatic individuals at average risk for colorectal cancer. ??Following a negative Cologuard result, the [place] [employer] and U.S. Multi-Society Task Force screening guidelines recommend a Cologuard re-screening interval of 3 years. References: [place] [employer] Guideline for Colorectal Cancer Screening: https://www.cancer.or g/cancer/ayiuu-xwrrjx-xfekqt/xqqhlgztr-aadbzcqnc-gjlvjzk/acs-recommendations.htm celina; [place], Mindy RIVERA, Van REYES, Colorectal Cancer Screening: Recommendations for Physicians and Patients from the U.S. Multi-Society Task Force on Colorectal Cancer Screening , Am J Gastroenterology 2017; 112:9417-1810. TEST DESCRIPTION: Composite algorithmic analysis of stool DNA-biomarkers with hemoglobin immunoassay. ?? Quantitative values of individual biomarkers are not reportable and are not associated with individual biomarker result reference ranges. Cologuard is intended for colorectal cancer screening ofadults of either sex, 45 years or older, [...] (Kaylee Armenta al, N Engl J Med 2014;370(14):1276-8076.) Cologuard may produce a false negative or false positive result (no colorectal cancer or precancerous polyp present at colonoscopy follow up). A negative Cologuard test result does not guarantee the absence of CRC or advanced adenoma (pre-cancer). The current Cologuard screening interval is every 3 years. ([place] [employer] and U.S. Multi-Society Task Force). Cologuard performance data in a 10,000 patient pivotal study using colonoscopy as the reference method can be accessed at the following location: www.[employer]/results. Additional description of the Cologuard test process, warnings and precautions can be found at www.[employer].com. Specimen (Source)Anatomical Location / LateralityCollection Method / Volume Collection TimeReceived TimeStool specimen (specimen)01/05/2024 10:30 AM EDT 01/06/2024 12:37 PM EDT Narrative Authorizing ProviderResult TypeResult StatusColt [facility] ORDERABLESFinal ResultPerforming OrganizationAddressCity/State/ZIP CodePhone Number [employer] (CLIA #:[id number]) [address] [place] [address], * Bilateral screening mammogram with tomosynthesis (12/22/2023 8:44 AM EDT) Anatomical RegionLateralityModalityBreastBilateralMammographySpecimen (Source) Anatomical Location / LateralityCollection Method / VolumeCollection Time Received Time12/22/2023 8:56 AM EDT Impressions 12/22/2023 9:05 AM [...] Mild scattered benign-appearing calcifications noted bilaterally. Stable benign- appearing nodular density in the upper outer portion of the left breast. Axillary lymph nodes arenoted bilaterally. Procedure Note Ray Castillo MD - [...] which would be suggestive ofmalignancy. Mild scattered benign-appearing calcifications notedbilaterally. Stable benign-appearing nodular density in the upper outerportion of the left breast. Axillary lymph nodes are noted bilaterally. IMPRESSION: Impression: No specific evidence of malignancy seen in either breast. BI-RADS 2 Breast Density: There are scattered areas of fibroglandular density BiRads: BIRADS 2 - Benign Recommended follow-up: Routine Screening Mamm ELECTRONICALLY SIGNED BY: Ray Castillo M.D. Authorizing ProviderResult TypeResult Siobhan Roland MDIMG BI PROCEDURES Final Result * POCT microalbumin manually resulted (12/08/2023 9:21 AM EDT)ComponentValueRef RangeTest MethodAnalysis TimePerformed AtPathologist SignatureMICROALBUMIN, JJJRR87DUS/CREAT [id number] CREAT0.1Specimen (Source)Anatomical Location / LateralityCollection Method / VolumeCollection TimeReceived TimeUrine 12/08/2023 9:21 AM EDT Narrative Authorizing ProviderResult TypeResult Siobhan Roland MDPOINT OF CARE TEST ENTER/EDIT ORDERABLESFinal Result * (ABNORMAL) Hemoglobin A1c (11/05/2022)ComponentValueRef RangeTest Method Analysis TimePerformed AtPathologist SignatureHEMOGLOBIN A1C6.8QUESTSpecimen (Source)Anatomical Location / LateralityCollection Method / VolumeCollection TimeReceived TimeBloodVenous blood specimen / Wwhhfoc3711/05/2022 Narrative Authorizing ProviderResult TypeResult Siobhan Roland MDLAB BLOOD ORDERABLESEdited Result - FinalPerforming OrganizationAddressCity/State/ZIP Code Phone Number [facility] from Last 3 Months or Most Recently Relevant to Health Maintenance Insurance Care Teams Team MemberRelationshipSpecialtyStart DateEnd Date Colt Roland MD [address] [place] [address] PCP - [facility]07/14/23 Colt Roland MD [address] [facility] [address] [place] [address] PCP - GeneralFamily Yniwpskj95/29/25
--- OUTSIDE RECORDS SUMMARY | 2025-03-04 08:33 | XMS_ITS | Encounter Summary ---
Author Organization [facility] Address [address] [place] [address] Care Team Providers Care Railroad Passenger Agent Name Role Phone Colt Roland MD Unavailable [phone] Colt Roland MD Primary Care Provider [phone] Reason for Visit * ReasonCommentsMed Change Request Encounter Details DateTypeDepartmentCare Team (Latest Contact Info)Ylmghhvwzao34/29/2025Telephone [facility] [address] [place] [address] Colt Roland MD [address] [place] [address] Med Change Request Social History Tobacco UseTypesPacks/DayYears [...] times a week10/04/2024How often do you attend temple or advent services?More than 4 times per year10/04/2024Do you belong to any clubs or organizations such as temple groups, unions, [employer] or athletic danita ups, or school groups?Yes10/04/2024How often do you attend meetings of the clubs or organizations you belong to?More than 4 times per year10/04/2024re you , , , , never , or living with a partner? Bieyyeg4910/04/2024UDIT-CAnswerDate RecordedQ1: How often do you have a [...] like food, housing, medical care, and heating?Patient /23/2025PHQ-2AnswerDate RecordedPatient Health Questionnaire-2 Score0 02/09/2025[facility] [place] [facility] Occup[facility] - Occupational Stress QuestionnaireAnswerDate [...] before you got the money to buymore.Patient odtsfpya83/23/2025Within the past 12 months, the food you bought just didn't last and you didn't have money to get more.Patient bpgufulm08/23/2025PRAPARE - TransportationAnswerDate RecordedIn the past 12 months, [...] pay the mortgage or rent on time?Patient kkrghzy1001/01/2023In the last 12 months, how many places have you lived?1 01/01/2023In the last 12 months, was there a time when you did not have a steady place to sleep or slept in [place] (including now)?No01/01/2023Housing Stability Vital SignAnswerDate RecordedIn the last 12 months, was there a time when you were not able to pay the mortgage or rent on time?Patient declined 10/04/2024Number of Times Moved in the Last YearNot on file10/04/2024t any time in the past 12 months, were you homeless or living in a residential (including now)? No10/04/2024EducationAnswerDate RecordedWhat is the highest level of school you have completed or the highest degree you have received?Some college, no degree 11/12/2022CommentsNoSex and Gender InformationValueDate RecordedSex Assigned at BirthNot on fileLegal CewLhxihv76/15/2023 6:50 PM EDTGender Identity Not on fileSexual OrientationNot on fileOccupationIndustryJob Start DateJob End DateDaycare workerNot on fileNot on fileNot on filedocumented as of this encounter Functional Status * Over the past 2 weeks, how often have you been bothered by any of the following problems?QuestionAnswerDate of AssessmentAuthorLittle interest or pleasure in doing thingsNot at all02/09/2025 9:39 AM Susie Grover MA Feeling down, depressed, or hopelessNot at all02/09/2025 9:39 AM Susie Grover MAPatient Health Questionnaire-2 Oyvnm235 9:39 AM Susie Grover MA documented as of this encounter Miscellaneous Notes * Telephone Encounter - Rosio Villanueva RN - 02/22/2025 11:05 AM EST LVM for pt. Pt to call back if she has any questions. * Telephone Encounter - Colt Roland MD - 02/22/2025 8:22 AM EST Pen needles are sent. She is to take her sugar levels fasting in the morning and before supper every day and after 1 weekshe is to get me those level so I can make adjustments in her insulin. Once I get her the new dosing she is to repeat that exercise over and over until we get her hemoglobin A1c to goal. * Telephone Encounter - Susie Rizvi MA - 02/21/2025 2:49 PM EST Copied from VM: July, this is Shabana Araujo, just calling to let you know. The did not order the needles that go with with the insulin pens. So I will need those. And then I did not write down when he want the. The sugar numbers. It is twice a day. You could just let me know you can just leave me a voicemail anyway. Whenever he wants those. Okay, thank you, bye. * Telephone Encounter - Susie Rizvi MA - 02/15/2025 2:39 PM EST Copied from : Al, this is Shabana Gayle. I am just calling because I need a new prescription for losartan and the insulin was rejected by the insurance, which they said they sent you something on. So and I do not need to call back. Thank you. Losartan was already sent in but not sure what you want to do about the insulin documented in this encounter Plan of Treatment Not on file documented as of this encounter Visit Diagnoses Diagnosis Benign essential hypertension Essential hypertension, benign Type 2 diabetes mellitus with stage 3a chronic kidney disease, with long-term current use of insulin (HCC) Type 2 diabetes mellitus with hyperglycemia, with long-term current use of insulin (HCC) documented in this encounter Care Teams Team MemberRelationshipSpecialtyStart DateEnd Date Colt Roland MD [address] [address] [facility] Colt Roland MD [address] [address] PCP - GeneralFamily Xqhrupgz24/29/25documented as of this encounter
--- OUTSIDE RECORDS SUMMARY | 2025-03-04 08:33 | XMS_ITS | Encounter Summary ---
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 Name Role Phone Colt Roland MD Unavailable [phone] Colt Roland MD Primary Care Provider [phone] Reason for Visit * ReasonOnset DateCommentsCare Nadhgyiyoalt21/18/2025 Encounter Details DateTypeDepartmentCare Team (Latest Contact Info)Newdflhghkl70/18/2025Telephone [facility] 112 [facility] 100 [place] [id number] [place]mitri Sus[place], [place] Care Coordination Social History Tobacco UseTypesPacks/DayYears UsedDateSmoking Tobacco: NeverPassive [...] times a week10/04/2024How often do you attend holiness or congregation services?More than 4 times per year10/04/2024Do you belong to any clubs or organizations such as holiness groups, unions, [employer] or athletic danita ups, or school groups?Yes10/04/2024How often do you attend meetings of the clubs or organizations you belong to?More than 4 times per year10/04/2024re you , , , , never , or living with a partner? Yyxsioi4910/04/2024UDIT-CAnswerDate RecordedQ1: How often do you have a [...] like food, housing, medical care, and heating?Patient gmomywkb55/23/2025PHQ-2AnswerDate RecordedPatient Health Questionnaire-2 Score0 02/09/2025[facility] [place] [facility] Occupational Health - Occupational Stress QuestionnaireAnswerDate [...] before you got the money to buymore.Patient mbzibrlo67/23/2025Within the past 12 months, the food you bought just didn't last and you didn't have money to get more.Patient /23/2025PRAPARE - TransportationAnswerDate RecordedIn the past 12 months, [...] pay the mortgage or rent on time?Patient zbbcxvx0401/01/2023In the last 12 months, how many places have you lived?1 01/01/2023In the last 12 months, was there a time when you did not have a steady place to sleep or slept in [place] (including now)?No01/01/2023Housing Stability Vital SignAnswerDate RecordedIn the last 12 months, was there a time when you were not able to pay the mortgage or rent on time?Patient declined 10/04/2024Number of Times Moved in the Last YearNot on file10/04/2024t any time in the past 12 months, were you homeless or living in a intermediate (including now)? No10/04/2024EducationAnswerDate RecordedWhat is the highest level of school you have completed or the highest degree you have received?Some college, no degree 11/12/2022CommentsNoSex and Gender InformationValueDate RecordedSex Assigned at BirthNot on fileLegal DzrXrsmae71/15/2023 6:50 PM EDTGender Identity Not on fileSexual OrientationNot on fileOccupationIndustryJob Start DateJob End DateDaycare workerNot on fileNot on fileNot on filedocumented as of this encounter Miscellaneous Notes * Telephone Encounter - Samantha Devi - 03/01/2025 2:14 PM EST LVM to call the office for 2 appointments, both requiring lab work. * Telephone Encounter - Susie Rizvi MA - 03/01/2025 11:36 AM EST Pt still needs to get THY labs and have an OV and then she needs A1C non-fasting with OV just before Ekaterina documented in this encounter Plan of Treatment NameTypePriorityAssociated DiagnosesOrder ScheduleHemoglobin [id number] Type 2 diabetes mellitus with stage 3a chronic kidney disease, without long-term current use of insulin (HCC) Expected: 03/18/2025 (Approximate), Expires: 06/16/2025documented as of this encounter Visit Diagnoses Diagnosis Type 2 diabetes mellitus with stage 3a chronic kidney disease, without long-term current use of insulin (HCC) documented in this encounter Care Teams Team MemberRelationshipSpecialtyStart DateEnd Date Colt Roland MD [address] [place] [address] [address] PCP - [facility]07/14/23 Colt Roland MD [address] [address] PCP - GeneralFamily Gdlhldle04/29/25documented as of this encounter
--- OUTSIDE RECORDS SUMMARY | 2025-03-04 08:36 | XMS_ITS | CCD ---
Author Organization [facility] Care Team Providers Care Security Lead Name Role Phone COLT BOGGS Referring Unavailable [...] Primary Care Provider Colt Boggs MD Unavailable [phone] Colt Boggs MD Primary Care Provider [phone] Colt Boggs MD Unavailable [phone] COLT BOGGS Referring Unavailable COLT BOGGS Primary Care Unavailable Colt Boggs MD Unavailable COLT BOGGS Attending Unavailable COLT BOGGS Attending Unavailable COLT BOGGS Attending Unavailable COLT BOGGS Attending Unavailable Colt Boggs MD Primary Care Provider Allergies Allergy ClassificationReported Allergen(s)Allergy TypeDate of OnsetReaction(s) Facility (2 sources)NalbuphineDrug Tvmkuwi23-18-4953Pnz [facility] Repository (20 sources)Nalbuphine; Translations: [NALBUPHINE]Drug Zhtkwno38-06-8171PD intoleranceNOUniversity of Missouri Health Care (20 sources)Rosuvastatin calciumPropensity to adverse -37-3268Byokg [facility] (20 sources)SemaglutideAllergy to uvjanugwn54-88-6433[facility] Medications Current Medications MedicationDrug Class(es)DatesSig (Normalized)Sig (Original)aspirin 81 mg delayed release oral tablet (20 sources)Platelet Aggregation Inhibitor, Nonsteroidal Anti-inflammatory Drug take 1 tablet by mouth once dailyaspirin 81 MG EC tablet Take 81 mg by mouth 1 (one) time each day at the same time. Activebiotin 1 mg oral capsule (20 sources)take 1 capsule by mouth once dailybiotin 1 MG capsule Take 1 capsule by mouth 1 (one) time each day at the same time. Activecefuroxime 500 mg oral tablet (3 sources)Cephalosporin AntibacterialStart: 02-09-2025 End: 96-10-2053pwlp 1 tablet by mouth in the morningcefuroxime (Ceftin) 500 MG tablet Indications: Pneumonia of right lower lobe due to infectious organism Take 1 tablet (500 mg) by mouth in the morning and 1 tablet (500 mg) before bedtime. Do all this for 10 days. 20 tablet 02/09/2025 02/19/2025 Active colestipol hydrochloride 1000 mg oral tablet (9 sources)Bile Acid SequestrantStart: 10-05-2024 End: 75-27-1008hjassfmbxp (Colestid) 1 g tablet Indications: Postsurgical dumping syndrome Titrate from 1 to 2 tablets twice daily. Take at least 1 hour after or 4 hours before other medications. 120 tablet 1 02/09/2025 Active Continuous Glucose Team Coordinator (FreeStyle Sincere 3 Tillman) device (4 sources)Start: 18-23-1643Mekcwetbbc Glucose Team Coordinator (FreeStyle Sincere 3 Tillman) device Indications: Benign essential hypertension , Type 2 diabetes mellitus with stage 3a chronic kidney disease, with long-term current use of insulin (HCC) , Type 2 diabetes mellitus with hyperglycemia, with long-term current use of insulin (HCC) 1 Device See administration instructions 1 each 01/17/2025 ActiveContinuous Glucose Sensor (FreeStyle Sincere 3 Sensor) [facility] (4 sources)Start: 96-72-6901Xypdkobgaj Glucose Sensor (FreeStyle Sincere 3 Sensor) [facility] Indications: Benign essential hypertension , Type 2 diabetes mellitus with stage 3a chronic kidney disease, with long-term current use of insulin (HCC) , Type 2 diabetes mellitus with hyperglycemia, with long-term current use of insulin (HCC) Inject 1 Device under the skin every 14 (fourteen) days 6 each 3 01/17/2025 ActiveContinuous Glucose Sensor (Simplera Sensor) [facility] (4 sources)Start: 01-17-2025 End: 39-36-7629Dtlqecuwdn Glucose Sensor (Simplera Sensor) [facility] Indications: Type 2 diabetes mellitus with stage 3a chronic kidney disease, with long-term current use of insulin (HCC) , Type 2 diabetes mellitus with hyperglycemia, with long-term current use of insulin (HCC) 1 Application every 14 (fourteen) days I nject 1 Device under the skin every 14 (fourteen) days, use with device covered by insurance 5 each2 01/17/2025 02/16/2025 ActiveContinuous Glucose Sensor (Simplera System) [facility] (4 sources)Start: 01-17-2025 End: 58-73-5425Mneogwypug Glucose Sensor (Simplera System) [facility] Indications: Type 2 diabetes mellitus with stage 3a chronic kidney disease, with long-term current use of insulin (HCC) , Type 2 diabetes mellitus with hyperglycemia, with long-term current use of insulin (HCC) 1 Device Daily Please use device system approved by insurance 1 each 01/17/2025 01/17/2026 Active0.5 ml dulaglutide 1.5 mg/ml auto-injector (2 sources)GLP-1 Receptor AgonistStart: 03-15-2024 End: 53-33-8976vpmrmw 0.75 mg by subcutaneous injection every weekDulaglutide (Trulicity) 0.75 MG/0.5ML solution auto-injector Indications: Type 2 diabetes mellitus with stage 3a chronic kidney disease, without long-term current use of insulin (HCC) ([facility]) , Morbid obesity due to excess calories ([facility]) Inject 0.75 mg under the skin 1 (one) time per week 2 mL 03/15/2024 06/13/2024 Active glipiZIDE 5 mg oral tablet (12 sources)SulfonylureaStart: 01-15-2024 End: 32-24-5765kidcqYZPK (Glucotrol) 5 MG tablet Indications: Type 2 diabetes mellitus with stage 3a chronic kidney disease, without long-term current use of insulin (HCC) ([facility]) Take 2 tablets in the morning and 1 tablet in the evening. 90 tablet 2 01/15/2024 03/15/2024 Discontinued (Therapy completed) Start: 08-25-7544cpzahHEIE (Glucotrol) 5 MG tablet Indications: Type 2 diabetes mellitus with stage 3a chronic kidney disease, without long-term current use of insulin ([facility]) ([facility]) Take 2 tablets in the morning and 1 tablet in the evening. 90 tablet 2 10/23/2023 Activelevothyroxine sodium 0.075 mg oral tablet (20 sources)l-ThyroxineStart: 01-15-2024 End: 96-14-7219pbgu 1 tablet by mouth before mealtimelevothyroxine (Synthroid, Levoxyl) 75 MCG tablet Indications: Acquired hypothyroidism Take 1 tablet(75 mcg) by mouth in the morning. Take before meals. 30 tablet 11 02/04/2024 Active Start: 01-09-2023 End: 54-37-3619ktmq 1 tablet by mouth before mealtimelevothyroxine (Synthroid, Levoxyl) 75 MCG tablet Indications: Acquired hypothyroidism ([facility]/HCC) Take 1 tablet (75 mcg) by mouth in the morning. Take before meals. 30 tablet 11 01/09/2023 Activelosartan potassium 100 mg oral tablet (20 sources)Angiotensin 2 Receptor BlockerStart: 01-17-2025 End: 12-26-0030otmn 1 tablet by mouth once dailylosartan (Cozaar) 100 MG tablet Indications: Benign essential hypertension Take 1 tablet (100 mg) by mouth Daily 30 tablet 2 02/09/2025 05/10/2025 ActiveStart: 03-25-2025 End: 14-37-3942dutw 1 tablet by mouth once dailylosartan (Cozaar) 100 MG tablet Indications: Benign essential hypertension Take 1 tablet (100 mg) by mouth Daily 30 tablet 2 10/05/2024 ActiveStart: 01-15-2024 End: 25-39-0969oewb 1 tablet by mouth once dailylosartan (Cozaar) 100 MG tablet Indications: Benign essential hypertension (CMS/HCC) Take 1 tablet (100 mg) by mouth Daily 30 tablet 2 03/15/2024 06/13/2024 ActiveStart: 10-08-2023 End: 44-81-0568qecq 1 tablet by mouth once dailylosartan (Cozaar) 100 MG tablet Indications: Benign essential hypertension (CMS/HCC) Take 1 tablet (100 mg) by mouth Daily 30 tablet 2 10/08/2023 ActivemetFORMIN hydrochloride 1000 mg oral tablet (20 sources)BiguanideStart: 01-17-2025 End: 85-99-0972rnnb 1 tablet by mouth in the morningmetFORMIN (Glucophage) 1000 MG tablet Indications: Type 2 diabetes mellitus with stage 2 chronic kidney disease, without long-term current use of insulin (HCC) Take 1 tablet (1,000 mg) by mouth in the morning and 1 tablet (1,000 mg) in the evening. Take with meals. 60 tablet 2 02/09/2025 05/10/2025ctiveStart: 07-06-2024 End: 73-11-2816alwf 1 tablet by mouth in the morningmetFORMIN (Glucophage) 1000 MG tablet Indications: Type 2 diabetes mellitus with stage 2 chronic kidney disease, without long-term current use of insulin (HCC) Take 1 tablet (1,000 mg) by mouth in the morning and 1 tablet (1,000 mg) in the evening. Take with meals. 60 tablet 2 10/05/2024 ActiveStart: 01-15-2024 End: 13-58-2686abfh 1 tablet by mouth in the morningmetFORMIN (Glucophage) 1000 MG tablet Indications: Type 2 diabetes mellitus with stage 3a chronic kidney disease, without long-term current use of insulin (HCC) (CMS/HCC) Take 1 tablet (1,000 mg) by mouth in the morning and 1 tablet (1,000 mg) in the evening. Take with meals. 60 tablet 2 ActiveStart: 10-08-2023 End: 70-23-2635owqq 1 tablet by mouth in the morningmetFORMIN (Glucophage) 1000 MG tablet Indications: Type 2 diabetes mellitus with stage 3a chronic kidney disease, without long-term current use of insulin (HCC) (CMS/HCC) Take 1 tablet (1,000 mg) by mouth in the morning and 1 tablet (1,000 mg) in the evening. Take with meals. 60 tablet 2 10/08/2023ctivemetoprolol tartrate 50 mg oral tablet (20 sources)beta-Adrenergic BlockerStart: 01-17-2025 End: 47-54-4841wbzz 1 tablet by mouth in the morningmetoprolol tartrate (Lopressor) 50 MG tablet Indications: Benign essential hypertension Take 1 table t (50 mg) by mouth in the morning and 1 tablet (50 mg) before bedtime. 60 tablet 2 02/09/2025 05/10/2025 ActiveStart: 07-06-2024 End: 48-73-2125hboy 1 tablet by mouth in the morningmetoprolol tartrate (Lopressor) 50 MG tablet Indications: Benign essential hypertension Take 1 table t (50 mg) by mouth in the morning and 1 tablet (50 mg) before bedtime. 60 tablet 2 10/05/2024 ActiveStart: 01-15-2024 End: 11-83-7806vijm 1 tablet by mouth in the morningmetoprolol tartrate (Lopressor) 50 MG tablet Indications: Benign essential hypertension (CMS/HCC) Ta ke 1 tablet (50 mg) by mouth in the morning and 1 tablet (50 mg) before bedtime. 60 tablet 2 03/15/2024 06/13/2024 ActiveStart: 10-08-2023 End: 48-39-2763qzkn 1 tablet by mouth in the morningmetoprolol tartrate (Lopressor) 50 MG tablet Indications: Benign essential hypertension (CMS/HCC) Ta ke 1 tablet (50 mg) by mouth in the morning and 1 tablet (50 mg) before bedtime. 60 tablet 2 10/08/2023 Activepotassium 99 mg extended release oral tablet (20 sources)take 1 tablet by mouth once dailyPotassium 99 MG tablet Take 99 mg by mouth 1 (one) time each day at the same time. Active Completed/Discontinued Medications MedicationDrug Class(es)DatesSig (Normalized)Sig (Original)empagliflozin 25 mg oral tablet (8 sources)Sodium-Glucose Cotransporter 2 InhibitorStart: 01-17-2025 End: 33-12-9778qfps 1 tablet by mouth once dailyempagliflozin (Jardiance) 25 MG Indications: Type 2 diabetes mellitus with stage 3a chronic kidney disease, without long-term current use of insulin (HCC) Take 1 tablet (25 mg) by mouth Daily 30 tablet 2 01/17/2025 02/09/2025 Discontinued (Side effects)Start: 07-06-2024 End: 95-95-3612olji 1 tablet by mouth once dailyempagliflozin (Jardiance) 25 MG Indications: Type 2 diabetes mellitus with stage 3a chronic kidney disease, without long-term current use of insulin (HCC) Take 1 tablet (25 mg) by mouth Daily 30 tablet 2 07/06/2024 Active3 ml insulin glargine 100 unt/ml pen injector (7 sources)Insulin AnalogStart: 02-09-2025 End: 80-41-0757ifddlkg glargine (Basaglar KwikPen) 100 UNIT/ML pen Indications: Benign essential hypertension , Type 2 diabetes mellitus with hyperglycemia, with long-term current use of insulin (HCC) Inject 20 Units under the skin Daily 6 mL 02/09/2025 02/09/2025 DiscontinuedStart: 22-31-6772Kxebaoxx KwikPen 100 UNIT/ML pen Indications: Benign essential hypertension , Type 2 diabetes [facility] with stage 3a chronic kidney disease, with long-term current use of insulin (HCC) , Type 2 diabetes mellitus with hyperglycemia, with long-term current use of insulin (HCC) INJECT 20 UNITS SUBCUTANEOUSLY (UNDER THE SKIN) DAILY 15 mL 02/09/2025 ActiveStart: 01-17-2025 End: 56-67-2941rjjxopa glargine (Basaglar KwikPen) 100 UNIT/ML pen Indications: Benign essential hypertension , Type 2 diabetes mellitus with stage 3a chronic kidney disease, with long-term current use of insulin (HCC) , Type 2 diabetes mellitus with hyperglycemia, with long-term current use of insulin (HCC) Inject 20 Units under the skin Daily 6 mL 01/17/2025 02/09/2025 Discontinued (Reorder) Problems Active Problems Problem ClassificationProblemDateDocumented DateEpisodic/ChronicCardiac dysrhythmias (1 source)Tachycardia, unspecified; Translations: [TACHYCARDIA, UNSPECIFIED] Onset: 38-86-6524VqghdxwqNnxfpzp kidney disease (20 sources)Chronic kidney disease stage 3A ; Translations: [Stage 3a chronic kidney disease (HCC)]Onset: 010605-27-4892AogmtfoAaxdyri kidney disease (1 source)Chronic kidney disease; Translations: [CHRONIC KIDNEY DISEASE STAGE 3A]Onset: 87-61-0638Wpmjxyrswfuoj of surgical procedures or medical care (20 sources)Postgastric surgery syndrome; 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]Onset: 507005-58-0883XsdeimizImxglxlg mellitus with complications (20 sources)Type 2 diabetes mellitus with diabetic chronic kidney disease; Translations: [Chronic kidney disease due to type 2 diabetes mellitus]Onset: 63-92-7170YqdfdtfWqkvoggl mellitus without complication (1 source)Type 2 diabetes mellitus without complications; Translations: [TYPE 2 DIABETES MELLITUS WITHOUT COMPLICATIONS]Onset: 70-46-8721UkhmuxgGmqugyxzh of lipid metabolism (20 sources)Hyperlipidemia, unspecified; Translations: [Mixed hyperlipidemia] Onset: 415094-80-0941HfxfghcAwlusmgng hypertension (20 sources)Essential (primary) hypertension; Translations: [Benign essential hypertension]Onset: 698359-89-0429WlxiasiMxodhqybykqd with complications and secondary hypertension (20 sources)Hypertensive chronic kidney disease with stage 1 through stage 4 chronic kidney disease, or unspecified chronic kidney disease; Translations: [Hypertensive renal disease]Onset: 58-11-2379CdvtjcrXemovbf and fatigue (20 sources)Chronic fatigue, unspecified; Translations: [Chronic fatigue syndrome]Onset: 07-04-2022 Resolved: 00-64-8748XbjubtnYmjem aftercare (1 source)alf (current) use of aspirin; Translations: [MCC (CURRENT) USE OF ASPIRIN]Onset: 13-71-5004JyrxoqtoIygkm aftercare (2 sources)Polypharmacy ; Translations: [Other snf (current) drug therapy] 00-48-4347YfifxgboAupql aftercare (1 source)alf (current) use of oral hypoglycemic drugs; Translations: [MCC (CURRENT) USE OF ORAL HYPOGLYCEMIC DRUGS]Onset: 51-98-2226Vopcz connective tissue disease (20 sources)Myalgia caused by statin; Translations: [Myalgia, unspecified site] Onset: 345664-92-6398UebwhmtmBxyak hereditary and degenerative nervous system conditions (20 sources)Restless legs; Translations: [Restless legs syndrome]Onset: 179221-91-8797RriwpezHzsug nervous system disorders (1 source)Encephalopathy, unspecified; Translations: [ENCEPHALOPATHY, UNSPECIFIED]Onset: 86-30-3876PaddiskEpaey nutritional; endocrine; and metabolic disorders (20 sources)Morbid obesity; Translations: [Morbid (severe) obesity due to excess calories]Onset: 960527-32-3647TcibahwRylmd nutritional; endocrine; and metabolic disorders (4 sources)Body mass index 30+ - obesity; Translations: [Body mass index (BMI) 35.0-35.9, adult]54-97-2799AyydildLbjbjpflj (except that caused by tuberculosis or sexually transmitted disease) (2 sources)Right lower zone pneumonia; Translations: [Pneumonia, unspecified organism]94-27-8574LkqdclujIspmkexv codes; unclassified (2 sources)Altered mental status, unspecified; Translations: [ALTERED MENTAL STATUS, UNSPECIFIED]Onset: 34-29-4828PdohugngDprwogco codes; unclassified (1 source)Acquired absence of other specified parts of digestive tract; Translations: [ACQUIRED ABSENCE OF OTHER SPECIFIED PARTS OF DIGESTIVE TRACT] Onset: 55-60-8697BayvfnbeKxlrrava codes; unclassified (1 source)Pain, unspecified; Translations: [Pain, unspecified]Onset: 08-01-2024 EpisodicRespiratory failure; insufficiency; arrest (adult) (1 source)Acute respiratory failure with hypoxia; Translations: [ACUTE RESPIRATORY FAILURE WITH HYPOXIA]Onset: 29-20-2523HjdlnihbKgtmfkg disorders (20 sources)Hypothyroidism, unspecified; Translations: [Thyrotoxicosis with diffuse goiter without thyrotoxic crisis or storm]Onset: ChronicUnclassified (1 source)AMS, LETHARGYOnset: 43-25-9579Afwdfboaipgy (1 source)AMSOnset: 05-23-2018 Past or Other Problems Problem ClassificationProblemDateDocumented DateEpisodic/Chronic Administrative/social admission (2 sources)Advance directive discussed with patient; Translations: [Other specified counseling]25-44-1925HvbqohdoQxybmlmtvpsif symptoms and ill-defined conditions (2 sources)Microalbuminuria; Translations: [Proteinuria, unspecified]12-08-2023 EpisodicOther diseases of veins and lymphatics (20 sources)Vascular insufficiency; Translations: [Venous insufficiency (chronic) (peripheral)]Onset: 653011-02-4578WyvluekhOovas nutritional; endocrine; and metabolic disorders (20 sources)Severe obesity; Translations: [Class 2 severe obesity due to excess calories with serious comorbidity and body mass index (BMI) of 35.0 to 35.9 in adult]Onset: 10-22-2023 Resolved: 133969-74-7036IhyzxfePwjqa screening for suspected conditions (not mental disorders or infectious disease) (10 sources)Patient encounter status; Translations: [Encounter for screening for malignant neoplasm of colon]50-08-4033Asccffaa Results Test NameValueInterpretationReference RangeFacilityMLR HEMOGLOBIN A1Con 29-44-3490Ufoiuaf [Mass/Vol]217 mg/dLNOMA BrqnghrpwoXtM0j (Bld) [Mass fraction] 9.2 %High4.5 - 6.2 %NOMS HealthcareComment on above:ADA RECOMMENDED LIMIT 4.0 - 6.0 ADA THERAPEUTIC TARGET < 7.0 ACTION SUGGESTED > 7.0 No Panel Informationon 31-10-8863Ucpfspkxhlzjwd and review of laboratory results AbnormalNOMS HealthcareCLINISYNCNOMS HealthcareTBH MICROALB CREAT RATIO RANDOMon 97-93-7828WEVVFGCCBK URINE YXCVFL36.05 mg/dL20.00 - 300.00 mg/dLNOMS Healthcare MICROALBUM CREATININE RATIO UR60.3 mg/gHigh0.0 - 29.9 mg/gNOMS HealthcareComment on above:NO MICROALBUMINURIA 0-29 MG/G CLINICAL MICROALBUMINURIA 30-300 MG/G MACROALBUMINURIA >300 MG/G MICROALBUMIN URINE RANDOM2.9 mg/dLNINF - 30.0 mg/dLAudrain Medical CenterMLR HEMOGLOBIN A1Con 11-52-7879Bsdeimj [Mass/Vol]272 mg/dLAudrain Medical CenterHbA1c (Bld) [Mass fraction]11.1 %High4.5 - 6.2 %[facility]rain Medical CenterComment on above:ADA RECOMMENDED LIMIT 4.0 - 6.0 ADA THERAPEUTIC TARGET < 7.0 ACTION SUGGESTED > 7.0 Interpretation and review of laboratory resultsAbnoWellSpan Chambersburg HospitalCLINISYNValley Regional Medical Center THYROXINE (T4) FREEon 03-50-9844Ufyi T4 [Mass/Vol]1.35 ng/dL 0.76 - 1.46 ng/dLKansas City VA Medical CenterINISYNUnion Medical Center THYROXINE (T4) FREE on 91-60-6100Ewat T4 [Mass/Vol]1.26 ng/dL0.76 - 1.46 ng/dLAudrain Medical Center CLINISYNCAudrain Medical CenterLaboratory - Chemistry and Chemistry - challengeon 55-29-5240Rmojpnw DL <= 20 mg/L (U) [Mass/Vol]10 mg/dLAudrain Medical Center Albumin/Creatinine DL <= 1.0 mg/L (U) [Ratio]100NOUniversity of [place] Health CareCreatinine (U) [Mass/Vol]0.1 mg/dLAudrain Medical CenterNo Panel Informationon 12-08-2023 Interpretation and review of laboratory resultsNoPrisma Health [facility] HealthcareGLYCOHEMOGLOBIN A1Con 61-95-0530KFC RECOMMENDATIONSEE BELOWSelect Medical [facility], BeachwoodComkalamazoo psychiatric hospital on above:Result Comment: ADA RECOMMENDED LIMIT 4.0 - 6.0 ADA THERAPEUTIC TARGET < 7.0 ACTION SUGGESTED > 7.0Performed By: #### A1C #### [facility] [address] [address] [address] Veronica FloydGlucose [Mass/Vol]160 mg/dLUniversity Hospitals TriPoint Medical Center on above:Performed By: #### A1C #### [facility] [address] [address] [address] Veronica FloydHbA1c (Bld) [Mass fraction]7.2 %Critically high4.5-6.2The [facility] HospitalComment on above:Performed By: #### A1C #### [facility] [address] [address] [address] Veronica Almonte T3on 62-75-9712THYD T32.59 pg/mlLNormal2.18-3.98The [facility] HospitalComkalamazoo psychiatric hospital on above:Performed By: #### TSH, FT3 #### [facility] [address] [address] [address] Veronica Almonte T4on 06-27-3388Gzxp T4 [Mass/Vol]1.25 ng/dLNormal0.76-1.46 The [facility] HospitalComkalamazoo psychiatric hospital on above:Performed By: #### FT4 #### [facility] [address] [place] [address] Dr. Veronica CaroHon 53-82-3141HET4.607 uIU/mLNormal0.358-3.740The [facility] on above:Performed By: #### TSH, FT3 #### [facility] [address] [place] [address] Dr. Veronica FloydGLYCOHEMOGLOBIN A1Con 52-08-0166PIF RECOMMENDATIONSEE BELOWNormal The [facility] HospitalComkalamazoo psychiatric hospital on above:Result Comment: ADA RECOMMENDED LIMIT 4.0 - 6.0 ADA THERAPEUTIC TARGET < 7.0 ACTION SUGGESTED > 7.0Performed By: #### A1C #### [facility] [address] [place] [address] Dr. Veronica FloydGlucose [Mass/Vol]154 mg/dLNormDayton Osteopathic Hospital on above:Performed By: #### A1C #### [facility] [address] [place] [address] Dr. Veronica FloydHbA1c (Bld) [Mass fraction]7.0 %Critically high4.5-6.2The [facility] on above:Performed By: #### A1C #### [facility] [address] [place] [address] Dr. Veronica FloydLIPID PROFILEon 43-93-5498FZSZ-HDL RATIO NORMSEE BELOWNormalThe Berlin HospitalComment on above:Result Comment: 3.3 - 4.4 LOW RISK 4.4 - 7.1 AVERAGE RISK 7.1 - 11.0 MODERATE RISK >11.0 HIGH RISKPerformed By: #### CMP, LIPID #### [facility] [address] [address] [address] Veronica FloydCholesterol [Mass/Vol]173 mg/dLNormal<=200The [facility] Comment on above:Performed By: #### CMP, LIPID #### [facility] [address] [address] [address] Veronica FloydCholesterol in HDL [Mass/Vol]44 mg/zBJcumfk73-39Izw [facility] HospitalComment on above:Performed By: #### CMP, LIPID #### [facility] [address] [place] [address] Dr. Veronica FloydCholesterol in LDL [Mass/Vol]114.6 mg/dLSelect Medical Cleveland Clinic Rehabilitation Hospital, BeachwoodComment on above:Performed By: #### CMP, LIPID #### [facility] [address] [place] [address] Dr. Veronica Hodgesestertrudi.total/Cholesterol in HDL [Mass ratio]3.9 {ratio} NormalHolzer Medical Center – JacksonComment on above:Performed By: #### CMP, LIPID #### [facility] [address] [place] [address] Dr. Veronica FloydHDL NORMAL> or = 60 mg/dl - LOW CARDIOVASCULAR RISK <40 mg/dl - HIGH CARDIOVASCULAR RISKSelect Medical Cleveland Clinic Rehabilitation Hospital, BeachwoodComment on above:Performed By: #### CMP, LIPID #### [facility] [address] [place] [address] Dr. Veronica FloydLDL CALC NORMALSEE BELOWSelect Medical Cleveland Clinic Rehabilitation Hospital, BeachwoodComment on above:Result Comment: <100 mg/dl OPTIMAL 100 - 129 mg/dl NEAR OR ABOVE OPTIMAL 130 - 159 mg/dl BORDERLINE HIGH 160 - 189 mg/dl HIGH >190 mg/dl VERY HIGH Performed By: #### CMP, LIPID #### [facility] [address] [place] [address] Dr. Veronica FloydTriglyceride [Mass/Vol]72 mg/dLNormal<=150The [facility] Comment on above:Performed By: #### CMP, LIPID #### [facility] [address] [place] [address] Dr. Veronica FloydVLDL CALC14.4 mg/dLNormalThe [facility] HospitalComment on above: Performed By: #### CMP, LIPID #### [facility] [address] [place] [address] Dr. Veronica FloydPROF 14(COMP METB)on 82-05-9097Eelktzx [Mass/Vol]4.0 g/dLNormal 3.4-5.0The [facility] HospitalComment on above:Performed By: #### CMP, LIPID #### [facility] [address] [place] [address] Dr. Veronica FloydAlbumin/Globulin [Mass ratio]1.0 {ratio}NormalThe [facility] HospitalComment on above:Performed By: #### CMP, LIPID #### [facility] [address] [place] [address] Dr. Veronica Quach [Catalytic activity/Vol]53 U/BKrpkor81-958Rmj [facility] HospitalComment on above:Performed By: #### CMP, LIPID #### [facility] [address] [place] [address] Dr. Veronica Nieves [Catalytic activity/Vol]45 U/VRnpaby88-86Onn [facility] HospitalComment on above:Performed By: #### CMP, LIPID #### [facility] [address] [place] [address] Dr. Veronica Araya gap [Moles/Vol]9.8 mmol/LNormalThe [facility] HospitalComment on above:Performed By: #### CMP, LIPID #### [facility] [address] [place] [address] Dr. Veronica Biggs [Catalytic activity/Vol]23 U/XBtskmb21-24Fro [facility] HospitalComment on above:Performed By: #### CMP, LIPID #### [facility] [address] [place] [address] Dr. Yilan ChangBilirubin [Mass/Vol]0.3 mg/dLNormal0.2-1.0The [facility] Comment on above:Performed By: #### CMP, LIPID #### [facility] [address] [place] [address] Dr. Veronica FloydCalcium [Mass/Vol]9.5 mg/dLNormal8.5-10.1The [facility] Comment on above:Performed By: #### CMP, LIPID #### [facility] [address] [address] [address] Veronica FloydChloride [Moles/Vol]101 mmol/NDekhgy95-919Sym [facility] Comment on above:Performed By: #### CMP, LIPID #### [facility] [address] [place] [address] Dr. Veronica FloydCO2 [Moles/Vol]28.4 mmol/GWdprgv84.0-32.0[facility] Comment on above:Performed By: #### CMP, LIPID #### [facility] [address] [place] [address] Dr. Veronica FloydCreatinine [Mass/Vol]0.90 mg/dLNormal0.55-1.02[facility] JacksonComment on above:Performed By: #### CMP, LIPID #### [facility] [address] [place] [address] Dr. Veronica NealGFR-AF SIERRA LEONEAN>60Normal>=60The [facility] HospitalComment on above:Performed By: #### CMP, LIPID #### [facility] [address] [place] [address] Dr. Veronica NealGFR-NON AF SIERRA LEONEAN>60Normal>=60The [facility] HospitalComment on above:Performed By: #### CMP, LIPID #### [facility] [address] [place] [address] Dr. Veronica FloydGlobulin (S) [Mass/Vol]4.1 g/dLNormalThe [facility] HospitalComment on above:Performed By: #### CMP, LIPID #### [facility] [address] [place] [address] Dr. Veronica FloydGlucose [Mass/Vol]136 mg/dLCritically jxbp54-185Wap [facility] Hospitalment on above:Performed By: #### CMP, LIPID #### [facility] [address] [address] [address] Veronica FloydPotassium [Moles/Vol]4.2 mmol/LNormal3.5-5.1The [facility] Comment on above:Performed By: #### CMP, LIPID #### [facility] [address] [address] [address] Veronica FloydProtein [Mass/Vol]8.1 g/dLNormal6.4-8.2The [facility] Comment on above:Performed By: #### CMP, LIPID #### [facility] [address] [place] [address] Dr. Veronica FloydSodium [Moles/Vol]135 mmol/LCritically amq029-542Sba [facility] HospitalComment on above:Performed By: #### CMP, LIPID #### [facility] [address] [place] [address] Dr. Veronica FloydUrea nitrogen [Mass/Vol]18.0 mg/dLNormal7.0-18.0The [facility] HospitalComment on above:Performed By: #### CMP, LIPID #### [facility] [address] [address] [address] Veronica FloydUrea nitrogen/Creatinine [Mass ratio]20.0 mg/mgNormUniversity Hospitals Lake West Medical CenterComment on above:Performed By: #### CMP, LIPID #### [facility] [address] [place] [address] Dr. Veronica FloydGLYCOHEMOGLOBIN A1Con 33-97-1055TZT RECOMMENDATIONSEE BELOWNoCorey HospitalComkalamazoo psychiatric hospital on above:Result Comment: ADA RECOMMENDED LIMIT 4.0 - 6.0 ADA THERAPEUTIC TARGET < 7.0 ACTION SUGGESTED > 7.0Performed By: #### A1C #### [facility] [address] [place] [address] Dr. Veronica FloydGlucose [Mass/Vol]137 mg/dLNormalThe [facility] HospitalComment on above:Performed By: #### A1C #### [facility] [address] [place], [place] [address] Dr. Veronica FloydHbA1c (Bld) [Mass fraction]6.4 %Critically high4.5-6.2The [facility] HospitalComment on above:Performed By: #### A1C #### [facility] [address] [address] [address] Veronica FaustinC METABOLIC PANELon 61-80-3741Nrhbduo mass conc9.5 mg/dL Normal8.6-10.3The [facility] HospitalComment on above:Order Comment: No: Do not add to previous drawPerformed By: #### 98965 #### [facility] [address] [place] [address], USAChloride molar kukq645 mmol/ORzxtzv04-131Pgh [facility] HospitalComment on above:Order Comment: No: Do not add to previous drawPerformed By: #### 12817 #### [facility] [address] [place] [address], USACO2 molar conc30 mmol/RCrnnyq03-05Yrt [facility] HospitalComment on above:Order Comment: No: Do not add to previous draw Performed By: #### 69528 #### [facility] [address] [place] [address], USACreatinine mass conc1.14 mg/dLNormal0.60-1.20The [place] HospitalComment on above:Order Comment: No: Do not add to previous drawPerformed By: #### 39774 #### [facility] [address] [place] [address], USAGFR/1.73 sq M predicted among blacks MDRD vol rate/area (S/P/Bld)59 ml/min/1.73sq mAbnormal>60The [facility] Comment on above:Order Comment: No: Do not add to previous drawPerformed By: #### 08364 #### [facility] [address] [place] [address], USAGFR/1.73 sq M predicted among non-blacks MDRD vol rate/area (S/P/Bld)49 ml/min/1.73sq mAbnormal>60The [facility] Comment on above:Order Comment: No: Do not add to previous drawPerformed By: #### 33193 #### [facility] [address] [place] [address], USAGlucose mass zazg658 mg/tYQwpm38-913Rbq [facility] HospitalComment on above:Order Comment: No: Do not add to previous drawPerformed By: #### 46437 #### [facility] [address] [place] [address], USAPotassium molar conc3.8 mmol/LNormal3.5-5.1The [place] HospitalComment on above:Order Comment: No: Do not add to previous drawPerformed By: #### 29937 #### [facility] [address] [place] [address], USASodium molar vzvx738 mmol/THbmfzp885-129Tmn [facility] HospitalComment on above:Order Comment: No: Do not add to previous drawPerformed By: #### 89528 #### [facility] [address] [place] [address], USAUrea nitrogen mass conc28 mg/dLHigh7-25The [place] HospitalComment on above:Order Comment: No: Do not add to previous drawPerformed By: #### 30150 #### [facility] [address] [place] [address], USACBC COMPLETE BLOOD COUNTon 46-04-6797Akrkxtchodv distribution width Ratio (RBC)14.6 %Ylauhb77.5-15.0The [place] HospitalComment on above:Order Comment: No: Do not add to previous draw Performed By: #### 09719 #### [facility] [address] [place] [address], USAHematocrit Volume Fraction (Bld)39.7 %Ktrknm66.0-45.0The [place] HospitalComment on above:Order Comment: No: Do not add to previous drawPerformed By: #### 56138 #### [facility] [address] [place] [address], TSAILE HEALTH CENTERHemoglobin mass conc (Bld)12.8 g/nDPlrync36.0-15.0The [facility] HospitalComment on above:Order Comment: No: Do not add to previous drawPerformed By: #### 03384 #### [facility] [address] [address], MUSCOGEEH Entitic mass (RBC)27.9 khKyppgh03.0-33.0The [place] HospitalComment on above:Order Comment: No: Do not add to previous drawPerformed By: #### 35910 #### [facility] [address] [place] [address], TSAILE HEALTH CENTERMCHC mass conc (RBC)32.2 g/oJElsjas24.0-35.0The [place] HospitalComment on above:Order Comment: No: Do not add to previous drawPerformed By: #### 23013 #### [facility] [address] [facility] [place] [address], MUSCOGEEV Entitic volume (RBC)86.7 yUPfpxnj65.0-98.0The [facility] HospitalComment on above:Order Comment: No: Do not add to previous drawPerformed By: #### 10501 #### [facility] [address] [place] [address], USANucleated RBC/100 WBC Ratio (Bld)0 %Normal0-0The [facility] HospitalComment on above:Order Comment: No: Do not add to previous drawPerformed By: #### 76595 #### [facility] [address] [facility] [place] [address], USAPLAT REL058 10*3/pAOzmvdq698-136Rst [facility] HospitalComment on above:Order Comment: No: Do not add to previous draw Performed By: #### 77306 #### [facility] [address] [place] [address], USARBC #/vol (Bld)4.58 10*6/uLNormal3.80-5.00The [facility] HospitalComment on above:Order Comment: No: Do not add to previous drawPerformed By: #### 46986 #### [facility] [address] [place] [address], USAWBC #/vol (Bld)5.70 10*3/uLNormal4.00-10.60The [facility] HospitalComment on above:Order Comment: No: Do not add to previous drawPerformed By: #### 12458 #### [facility] [address] [place] [address], USAIMMUNOGLOB BLon 58-42-1880PwH mass cnmo819 mg/dLNormal 60-413The [facility] HospitalComment on above:Order Comment: No: Do not add to previous drawPerformed By: #### 04586 #### [facility] [address] [place] [address], USAIgG mass yuuu2879 mg/aEVdpnpw612-3466Lji [facility] HospitalComment on above:Order Comment: No: Do not add to previous drawPerformed By: #### 38920 #### [facility] [address] [place] [address], USAIgM mass ovlq427 mg/lCWlwura97-279Kjl [facility] HospitalComment on above:Order Comment: No: Do not add to previous draw Performed By: #### 31869 #### [facility] [address] [place] [address], USAIMMUNOGLOBULIN Andrea 25-98-0187GLZyknoeFjiAdams County HospitalComment on above:Order Comment: No: Do not add to previous drawIMMUNOGLOBULIN E230 IU/mLHigh<101The [facility] Comment on above:Order Comment: No: Do not add to previous drawPOC GLUCOSE LABon 63-16-9723Qsvqsyj mass wtsj183 mg/hFYccu40-972Tvq [facility] HospitalComment on above:Performed By: #### 07559 #### [facility] [address] [place] [address], USAGlucose mass voel756 mg/mCHeev58-568Kxs [facility] HospitalComment on above:Performed By: #### 45189 #### [facility] [address] [place] [address], USAGlucose mass sgew764 mg/gAIgbp07-586Mke [facility] HospitalComment on above:Performed By: #### 00169 #### [facility] [address] [place] [address], USAGlucose mass rxqr016 mg/bWXhiq94-061Xqu [facility] HospitalComment on above:Performed By: #### 59904 #### [facility] [address] [place] [address], USABASIC METABOLIC PANELon 91-23-3141Jjaxoum mass conc9.4 mg/dLNormal8.6-10.3The [facility] HospitalComment on above:Order Comment: No: Do not add to previous drawPerformed By: #### 57168 #### [facility] [address] [place] [address], USAChloride molar conc97 mmol/BOvd27-729Iff [facility] HospitalComment on above:Order Comment: No: Do not add to previous drawPerformed By: #### 74847 #### [facility] [address] [place] [address], USACO2 molar conc30 mmol/EHwllbf63-24Stz [facility] HospitalComment on above:Order Comment: No: Do not add to previous draw Performed By: #### 05286 #### [facility] [address] [place] [address], USACreatinine mass conc1.15 mg/dLNormal0.60-1.20The [facility] HospitalComment on above:Order Comment: No: Do not add to previous drawPerformed By: #### 58781 #### [facility] [address] [place] [address], USAGFR/1.73 sq M predicted among blacks MDRD vol rate/area (S/P/Bld)59 ml/min/1.73sq mAbnormal>60The [facility] Comment on above:Order Comment: No: Do not add to previous drawPerformed By: #### 70943 #### [facility] [address] [place] [address], USAGFR/1.73 sq M predicted among non-blacks MDRD vol rate/area (S/P/Bld)49 ml/min/1.73sq mAbnormal>60The [facility] Comment on above:Order Comment: No: Do not add to previous drawPerformed By: #### 56469 #### [facility] [address] [place] [address], USAGlucose mass kouh025 mg/bIOrui95-662Wlq [facility] HospitalComment on above:Order Comment: No: Do not add to previous drawPerformed By: #### 65265 #### [facility] [address] [place] [address], USAPotassium molar conc2.9 mmol/LLow3.5-5.1The [facility] HospitalComment on above:Order Comment: No: Do not add to previous drawPerformed By: #### 79359 #### [facility] [address] [place] [address], USASodium molar cmke726 mmol/HOiklim498-668Qgt [facility] HospitalComment on above:Order Comment: No: Do not add to previous drawPerformed By: #### 04337 #### [facility] [address] [place] [address], USAUrea nitrogen mass conc24 mg/dLNormal7-25The [facility] HospitalComment on above:Order Comment: No: Do not add to previous drawPerformed By: #### 63142 #### [facility] [address] [place] [address], USAHEMOGLOBIN A1Con 08-83-5024Yzswalxlic A1c/Hemoglobin.total mass fraction (Bld)7.1 %High4.0-6.0The [facility] Comment on above:Order Comment: Yes: Add to Previous draw if ablePerformed By: #### 39015 #### [facility] [address] [facility] [place] [address], USAHemoglobin A1c/Hemoglobin.total mass fraction (Bld)157 mg/tZQngs64-017Iat [facility] HospitalComment on above:Order Comment: Yes: Add to Previous draw if ablePerformed By: #### 25500 #### [facility] [address] [facility] [place] [address], USAMAGNESIUM BLOODon 54-04-3521Mpttesxev mass conc2.5 mg/dL Normal1.9-2.7The [facility] HospitalComment on above:Performed By: #### 21290 #### [facility] [address] [place] [address], USAMISCELLANEOUS PATHon 05-93-1572UFAJAOEqbgtxh faxed to ordering physician and sent to [facility] Comment on above:Order Comment: [facility]# [id number] ALLERGEN, FOOD, ALPHA-Gal PANEL CPT 17137 [id number] Comment: Test performed at [facility], [address] [place] [address]. Results faxed to Dr. Arroyo at [phone] By: #### 75004 #### [facility] [address] [place] [address], USAPOC GLUCOSE LABon 98-74-1764Buzynha mass kpic460 mg/dLHigh 70-100The [facility] HospitalComment on above:Performed By: #### 15333 #### [facility] [address] [place] [address], USAGlucose mass azbh495 mg/iJLgva03-421Nid [facility] HospitalComment on above:Performed By: #### 25897 #### [facility] [address] [place] [address], USAGlucose mass dpmd426 mg/pVAwuq94-341Cyv [facility] HospitalComment on above:Performed By: #### 22727 #### [facility] [address] [place] [address], USAGlucose mass mycc922 mg/pWEhus35-390Fzq [facility] HospitalComment on above:Performed By: #### 53601 #### [facility] [address] [place] [address], USABASIC METABOLIC PANELon 49-35-7021Tckcnpk mass conc9.5 mg/dLNormal8.6-10.3The [facility] HospitalComment on above:Order Comment: No: Do not add to previous drawPerformed By: #### 41372 #### [facility] [address] [place] [address], USAChloride molar conc95 mmol/FGhc88-528Rdv [facility] HospitalComment on above:Order Comment: No: Do not add to previous drawPerformed By: #### 90424 #### [facility] [address] [place] [address], USACO2 molar conc30 mmol/MSmrznr38-43Eve [facility] HospitalComment on above:Order Comment: No: Do not add to previous draw Performed By: #### 48799 #### [facility] [address] [place] [address], USACreatinine mass conc0.78 mg/dLNormal0.60-1.20The [facility] HospitalComment on above:Order Comment: No: Do not add to previous drawPerformed By: #### 93923 #### [facility] [address] [place] [address], USAGFR/1.73 sq M predicted among blacks MDRD vol rate/area (S/P/Bld)mL/min/{1.73_m2}Normal>60The [facility] HospitalComment on above:Order Comment: No: Do not add to previous drawPerformed By: #### 33207 #### [facility] [address] [place] [address], USAGFR/1.73 sq M predicted among non-blacks MDRD vol rate/area (S/P/Bld)mL/min/{1.73_m2}Normal>60The [facility] HospitalComment on above:Order Comment: No: Do not add to previous drawPerformed By: #### 59049 #### [facility] [address] [place] [address], USAGlucose mass btgv903 mg/oGHnah35-619Kyr [facility] HospitalComment on above:Order Comment: No: Do not add to previous drawPerformed By: #### 34260 #### [facility] [address] [place] [address], USAPotassium molar conc3.1 mmol/LLow3.5-5.1The [facility] HospitalComment on above:Order Comment: No: Do not add to previous drawPerformed By: #### 36720 #### [facility] [address] [place] [address], USASodium molar ziuz841 mmol/DMdiwwf615-368Ono [facility] HospitalComment on above:Order Comment: No: Do not add to previous drawPerformed By: #### 35982 #### [facility] [address] [place] [address], USAUrea nitrogen mass conc16 mg/dLNormal7-25The [facility] HospitalComment on above:Order Comment: No: Do not add to previous drawPerformed By: #### 70499 #### [facility] [address] [place] [address], USACBC W/DIFFon 00-16-0404RIX BASOPHILS0.0 10*3/uLNormal 0.0-0.2The [facility] HospitalComment on above:Order Comment: No: Do not add to previous drawPerformed By: #### 89498, 07048, 67702, 38837 #### [facility] [address] [place] [address], USAABS IMM GRANS0.1 10*3/uLNormal0.0-0.2The [facility] HospitalComment on above:Order Comment: No: Do not add to previous drawPerformed By: #### 55421, 76485, 71486, 17308 #### [facility] [address] [facility] [place] [address], USAABS NEUTROPHILS5.1 10*3/uLNormal1.6-7.6The [facility] HospitalComment on above:Order Comment: No: Do not add to previous drawPerformed By: #### 46412, 03716, 57413, 16146 #### [facility] [address] [place] [address], USABasophils #/vol (Bld)0.5 %Normal0.0-1.0The [facility] HospitalComment on above:Order Comment: No: Do not add to previous drawPerformed By: #### 49054, 88135, 38550, 10143 #### [facility] [address] [place] [address], USAEosinophils #/vol (Bld)0.0 10*3/uLNormal0.0-0.5The [facility] HospitalComment on above:Order Comment: No: Do not add to previous drawPerformed By: #### 08635, 06738, 63037, 71817 #### [facility] [address] [place] [address], USAEosinophils/100 WBC (Bld)0.1 %Normal0.0-6.0The [facility] HospitalComment on above:Order Comment: No: Do not add to previous drawPerformed By: #### 06624, 54111, 74484, 06804 #### [facility] [address] [facility] [place] [address], USAErythrocyte distribution width Ratio (RBC)14.4 %Normal 11.5-15.0The [facility] HospitalComment on above:Order Comment: No: Do not add to previous drawPerformed By: #### 28954, 92084, 11893, 13900 #### [facility] [address] [place] [address], USAHematocrit Volume Fraction (Bld)39.8 %Iueprm21.0-45.0The [facility] HospitalComment on above:Order Comment: No: Do not add to previous drawPerformed By: #### 37746, 88485, 52087, 75433 #### [facility] [address] [facility] [place] [address], USAHemoglobin mass conc (Bld)13.4 g/wVBciwbu16.0-15.0The [facility] HospitalComment on above:Order Comment: No: Do not add to previous drawPerformed By: #### 28496, 28782, 72575, 76487 #### [facility] [address] [place] [address], USAIMMATURE GRANS1.6 %High0.0-1.0The [facility] HospitalComment on above:Order Comment: No: Do not add to previous draw Performed By: #### 50442, 16107, 59508, 70213 #### [facility] [address] [place] [address], USALymphocytes #/vol (Bld)1.7 10*3/uLNormal1.2-4.0The [facility] HospitalComment on above:Order Comment: No: Do not add to previous drawPerformed By: #### 90235, 84415, 50903, 72052 #### [facility] [address] [place] [address], USALymphocytes/100 WBC (Bld)22.3 %Mtvycy41.0-45.0The [facility] HospitalComment on above:Order Comment: No: Do not add to previous drawPerformed By: #### 62622, 36431, 72251, 48010 #### [facility] [address] [place] [address], [facility] Entitic mass (RBC)27.7 doSgxguh67.0-33.0The [facility] HospitalComment on above:Order Comment: No: Do not add to previous drawPerformed By: #### 21704, 54264, 81565, 20920 #### [facility] [address] [place] [address], MUSCOGEEHC mass conc (RBC)33.7 g/hLRzatzc44.0-35.0The [facility] HospitalComment on above:Order Comment: No: Do not add to previous drawPerformed By: #### 86413, 44209, 00264, 48704 #### [facility] [address] [place] [address], [facility] [place] Entitic volume (RBC)82.4 gWMtmtup92.0-98.0The [facility] HospitalComment on above:Order Comment: No: Do not add to previous drawPerformed By: #### 83632, 80375, 34491, 88656 #### [facility] [address] [place] [address], USAMonocytes #/vol (Bld)0.7 10*3/uLNormal0.1-1.0The [facility] HospitalComment on above:Order Comment: No: Do not add to previous drawPerformed By: #### 65559, 98019, 24837, 51170 #### [facility] [address] [place] [address], USAMONOS8.7 %Normal5.0-12.0The [facility] HospitalComment on above:Order Comment: No: Do not add to previous drawPerformed By: #### 03740, 16549, 52524, 20646 #### [facility] [address] [place] [address], USANeutrophils/100 WBC (Bld)66.8 %Yvoaoc97.0-72.0The [facility] HospitalComment on above:Order Comment: No: Do not add to previous drawPerformed By: #### 29271, 08369, 18945, 57533 #### [facility] [address] [place] [address], USANucleated RBC/100 WBC Ratio (Bld)0 %Normal0-0The [facility] HospitalComment on above:Order Comment: No: Do not add to previous drawPerformed By: #### 44029, 15952, 26328, 45438 #### [facility] [address] [place] [address], USAPLAT SPD578 10*3/nPCfuacb222-992Zyy [facility] HospitalComment on above:Order Comment: No: Do not add to previous draw Performed By: #### 30674, 18444, 53455, 46757 #### [facility] [address] [place] [address], USARBC #/vol (Bld)4.83 10*6/uLNormal3.80-5.00The [facility] HospitalComment on above:Order Comment: No: Do not add to previous drawPerformed By: #### 12074, 85937, 65081, 80756 #### [facility] [address] [place] [address], [facility] HOSPITALBC #/vol (Bld)7.70 10*3/uLNormal4.00-1060The [facility] HospitalComment on above:Order Comment: No: Do not add to previous drawPerformed By: #### 55224, 23600, 65838, 73653 #### [facility] [address] [place] [address], USAEEG Reporton [id number] ReportName: Shabana Stallworth [facility] MR#: [id number] Age: 58 Physician: Colt Boggs M.D. Date: From 6:30 on May 30, 2018 until 0630 hours on May 31, 2018 Lab#: Date of : 1960 Patient Type: I NEURODIAGNOSTIC SERVICES REPORT [address] [place], [place] [address] Board of the [place] [employer] Accredited supervisor process testing: Jesse Muir. EEG DURATION: 23:33 and 0 [...] A/Raghu Matson MD Date Trans: 06/01/2018 05:26 Dipak/luis e DN_JN:[id number] cc: Colt Boggs M.D. 45 [place] [address] [facility] [address]IjsnsnJirOhio Valley HospitalMAGNESIUM BLOODon 21-63-1176Ppveoiibe mass conc2.3 mg/dLNormal1.9-2.7The [facility] HospitalComment on above:Performed By: #### 97306, 42341, 16233, 81640 #### [facility] [address] [facility] [address], [facility]ENTERPO GLUCOSE LABon 87-55-2082Zzzauwk mass pulr048 mg/dLHigh 70-100The [facility] HospitalComment on above:Performed By: #### 11959 #### [facility] [address] [facility] [place] [address], USAGlucose mass whbq024 mg/dXWynd78-175Lkz [facility] HospitalComment on above:Performed By: #### 48511 #### [facility] [address] [facility] [place] [address], USAGlucose mass awju172 mg/eJQoex76-586Snd [facility] HospitalComment on above:Performed By: #### 73824, 02801, 73795, 88658 #### [facility] [address] [place] [address], USAGlucose mass gxkx608 mg/yKSszi95-494Znb [facility] HospitalComment on above:Performed By: #### 84386, 06060, 20569, 85578 #### [facility] [address] [place] [address], [place]*C DIFF DNA AMPLIFICATIONon 05-31-2018*C DIFF DNA AMPLIFICATIONClinical Report: (D) Specimen: STOOL Collected: 05/31/2018 13:15 Status: Final Last Updated: 05/31/2018 17:23 (1) No: Do not add to previous draw CDT DNA: (Final) NegativeNormalThAshtabula General HospitalComment on above:Order Comment: No: Do not add to previous drawPerformed By: #### 03755, 95957, 86149, 64747 #### [facility] [address] [place] [address], USABASIC METABOLIC PANELon 19-95-0544Tyfordh mass conc9.0 mg/dLNormal8.6-10.3The [facility] HospitalComment on above:Order Comment: No: Do not add to previous drawPerformed By: #### 00308, 14901, 46398, 76930 #### [facility] [address] [place] [address], USAChloride molar conc97 mmol/JBpn70-223Ujd [facility] HospitalComment on above:Order Comment: No: Do not add to previous drawPerformed By: #### 66457, 38161, 59476, 18256 #### [facility] [address] [place] [address], USACO2 molar conc32 mmol/POvwu38-83Iju [facility] HospitalComment on above:Order Comment: No: Do not add to previous draw Performed By: #### 86645, 41287, 39088, 71392 #### [facility] [address] [place] [address], USACreatinine mass conc0.60 mg/dLNormal0.60-1.20The [facility] HospitalComment on above:Order Comment: No: Do not add to previous drawPerformed By: #### 46766, 81702, 77163, 02939 #### [facility] [address] [place] [address], USAGFR/1.73 sq M predicted among blacks MDRD vol rate/area (S/P/Bld)mL/min/{1.73_m2}Normal>60The [facility] HospitalComment on above:Order Comment: No: Do not add to previous drawPerformed By: #### 90409, 83526, 41941, 17724 #### [facility] [address] [place] [address], USAGFR/1.73 sq M predicted among non-blacks MDRD vol rate/area (S/P/Bld)mL/min/{1.73_m2}Normal>60The [facility] HospitalComment on above:Order Comment: No: Do not add to previous drawPerformed By: #### 09784, 10390, 89562, 50317 #### [facility] [address] [place] [address], USAGlucose mass sssg992 mg/jSYhpf58-761Ljm [facility] HospitalComment on above:Order Comment: No: Do not add to previous drawPerformed By: #### 34225, 45389, 27721, 15425 #### [facility] [address] [place] [address], USAPotassium molar conc2.9 mmol/LLow3.5-5.1The [facility] HospitalComment on above:Order Comment: No: Do not add to previous drawPerformed By: #### 53138, 22340, 30918, 32755 #### [facility] [address] [place] [address], USASodium molar efcj700 mmol/DAbjucd472-596Ozj [facility] HospitalComment on above:Order Comment: No: Do not add to previous drawPerformed By: #### 38788, 71867, 37316, 54455 #### [facility] [address] [place] [address], USAUrea nitrogen mass conc12 mg/dLNormal7-25The [facility] HospitalComment on above:Order Comment: No: Do not add to previous drawPerformed By: #### 44385, 34792, 89783, 28180 #### [facility] [address] [facility] [place] [address], USACBC W/DIFFon 04-56-6019YCF BASOPHILS0.0 10*3/uLNormal 0.0-0.2The [facility] HospitalComment on above:Order Comment: No: Do not add to previous drawPerformed By: #### 25547, 46502, 91368, 58612 #### [facility] [address] [facility] [address], USAABS NEUTROPHILS3.2 10*3/uLNormal1.6-7.6The [facility] HospitalComment on above:Order Comment: No: Do not add to previous drawPerformed By: #### 09420, 38713, 67421, 50218 #### [facility] [address] [facility] [place] [address], USABasophils #/vol (Bld)0.0 %Normal0.0-1.0The [facility] HospitalComment on above:Order Comment: No: Do not add to previous drawPerformed By: #### 09030, 95481, 79284, 95999 #### [facility] [address] [place] [address], USAEosinophils #/vol (Bld)0.0 10*3/uLNormal0.0-0.5The [facility] HospitalComment on above:Order Comment: No: Do not add to previous drawPerformed By: #### 57159, 58170, 91285, 45993 #### [facility] [address] [place] [address], USAEosinophils/100 WBC (Bld)0.0 %Normal0.0-6.0The [facility] HospitalComment on above:Order Comment: No: Do not add to previous drawPerformed By: #### 09323, 12207, 73029, 97806 #### [facility] [address] [place] [address], USAErythrocyte distribution width Ratio (RBC)14.2 %Normal 11.5-15.0The [facility] HospitalComment on above:Order Comment: No: Do not add to previous drawPerformed By: #### 81129, 39167, 65459, 06695 #### [facility] [address] [place] [address], USAGIANT PLATELETSPresentNormalThe [facility] HospitalComment on above:Order Comment: No: Do not add to previous draw Performed By: #### 25055, 59969, 88682, 66120 #### [facility] [address] [place] [address], USAHematocrit Volume Fraction (Bld)37.7 %Ntwdng21.0-45.0The [facility] HospitalComment on above:Order Comment: No: Do not add to previous drawPerformed By: #### 34655, 37540, 88974, 29586 #### [facility] [address] [place] [address], USAHemoglobin mass conc (Bld)12.5 g/dJQqngsv91.0-15.0The [facility] HospitalComment on above:Order Comment: No: Do not add to previous drawPerformed By: #### 96267, 51736, 34861, 03233 #### [facility] [address] [place] [address], USALymphocytes #/vol (Bld)1.2 10*3/uLNormal1.2-4.0The [facility] HospitalComment on above:Order Comment: No: Do not add to previous drawPerformed By: #### 51876, 06925, 00217, 48806 #### [facility] [address] [place] [address], USALymphocytes/100 WBC (Bld)24.3 %Oqgmue74.0-45.0The [facility] HospitalComment on above:Order Comment: No: Do not add to previous drawPerformed By: #### 75199, 09696, 00200, 12237 #### [facility] [address] [place] [address], [facility] Entitic mass (RBC)27.7 unJorshi08.0-33.0The [facility] HospitalComment on above:Order Comment: No: Do not add to previous drawPerformed By: #### 55583, 71962, 94454, 19830 #### [facility] [address] [place] [address], MUSCOGEEHC mass conc (RBC)33.2 g/gIVcnoye93.0-35.0The [facility] HospitalComment on above:Order Comment: No: Do not add to previous drawPerformed By: #### 41910, 31580, 05725, 25937 #### [facility] [address] [place] [address], MUSCOGEEV Entitic volume (RBC)83.6 hYEwfwvi77.0-98.0The [facility] HospitalComment on above:Order Comment: No: Do not add to previous drawPerformed By: #### 43769, 61294, 40347, 38669 #### [facility] [address] [place] [address], USAMETAMYELO0.9 %High0.0-0.0The [facility] HospitalComment on above:Order Comment: No: Do not add to previous drawPerformed By: #### 48498, 05051, 39003, 86981 #### [facility] [address] [place] [address], USAMonocytes #/vol (Bld)0.4 10*3/uLNormal0.1-1.0The [facility] HospitalComment on above:Order Comment: No: Do not add to previous drawPerformed By: #### 08146, 39199, 91901, 87451 #### [facility] [address] [place] [address], USAMONOS7.5 %Normal5.0-12.0The [facility] HospitalComment on above:Order Comment: No: Do not add to previous drawPerformed By: #### 05111, 39970, 02419, 91435 #### [facility] [address] [place] [address], USAMYELOS1.9 %High.0-.0The [facility] Comment on above:Order Comment: No: Do not add to previous drawPerformed By: #### 77909, 68025, 40382, 67901 #### [facility] [address] [place] [address], USANeutrophils/100 WBC (Bld)65.4 %Mnbyig68.0-72.0The [facility] HospitalComment on above:Order Comment: No: Do not add to previous drawPerformed By: #### 54670, 46610, 91703, 63458 #### [facility] [address] [place] [address], USANRBC SCANPresentNormalThe [facility] HospitalComment on above:Order Comment: No: Do not add to previous drawPerformed By: #### 47266, 75801, 11293, 19766 #### [facility] [address] [place] [address], USANucleated RBC/100 WBC Ratio (Bld)0 %Normal0-0The [facility] HospitalComment on above:Order Comment: No: Do not add to previous drawPerformed By: #### 67258, 77344, 12191, 01251 #### [facility] [address] [place] [address], USAPLAT TWS860 10*3/qCLbarrd413-316Jmp [facility] HospitalComment on above:Order Comment: No: Do not add to previous draw Performed By: #### 16312, 15780, 53693, 59954 #### [facility] [address] [place] [address], [facility]ALTH CENTERRBC #/vol (Bld)4.51 10*6/uLNormal3.80-5.00The [facility] HospitalComment on above:Order Comment: No: Do not add to previous drawPerformed By: #### 75357, 07676, 91073, 86699 #### [facility] [address] [place] [address], USAWBC #/vol (Bld)4.88 10*3/uLNormal4.00-10.60The [facility] HospitalComment on above:Order Comment: No: Do not add to previous drawPerformed By: #### 63455, 77838, 07948, 45806 #### [facility] [address] [place] [address], USAEEG Reporton [id number] ReportName: Shabana Stallworth [facility] MR#: [id number] Age: 58 Physician: Colt Boggs M.D. Date: From 6:30 on May 29, 2018, until 6:30 on May 30, 2018 Lab#: Day 7 Date of : 1960 Patient Type: I NEURODIAGNOSTIC SERVICES REPORT [address] [place], [place] [address] Board of the [place] [employer] Accredited supervisor process testing: Jesse Muir. EEG DURATION: 23:45 and 28 [...] Dipak/Raghu Matson MD Date Trans: 05/31/2018 05:14 A/mmo DN_JN:[id number] cc: Colt Boggs M.D. [address] [place] [address] [facility] [address]TkrdzkIowMain Campus Medical CenterMAGNESIUM BLOODon 24-52-5160Hnggpjwmw mass conc1.9 mg/dLNormal1.9-2.7The [facility] HospitalComment on above:Order Comment: No: Do not add to previous drawPerformed By: #### 86743, 97181, 67531, 75169 #### [facility] [address] [place] [address], USAPHOSPHORUS BLOODon 36-62-0648Ezvaazkru mass conc4.0 mg/dL Normal2.5-5.0The [facility] HospitalComment on above:Order Comment: No: Do not add to previous drawPerformed By: #### 35437, 84726, 84860, 23246 #### [facility] [address] [place] [address], USAPOC GLUCOSE LABon 05-10-3901Jfkfosy mass uowf757 mg/dLHigh 70-100The [facility] HospitalComment on above:Performed By: #### 32057, 48990, 18300, 43512 #### [facility] [address] [place] [address], USAGlucose mass qfsr646 mg/uSUoyu89-064Wpe [facility] HospitalComment on above:Performed By: #### 94194, 76491, 24756, 50662 #### [facility] [address] [place] [address], USAGlucose mass ddew799 mg/jFNpgo86-224Ued [facility] HospitalComment on above:Performed By: #### 52939, 81807, 82934, 70641 #### [facility] [address] [place] [address], USAGlucose mass ktqo384 mg/sIUcsv00-791Ytn [facility] HospitalComment on above:Performed By: #### Iesha, 16439, 55683, 69999 #### [facility] [address] [place] [address], USAARTERIAL BLOOD GAS WITH ICAon 46-31-8267JINF EXCESS5 mmol/L High-2-2The [facility] HospitalComment on above:Performed By: #### Iesha, 90300, 81899, 68443 #### [facility] [address] [place] [address], USADELIVERY SYSTEMSMVNoAdams County HospitalComment on above:Performed By: #### Iesha, 61309, 81760, 48611 #### [facility] [address] [place] [address], WYDURY272 %Dzxxyx46-583Fnt [facility] Comment on above:Performed By: #### Iesha, 87037, 50907, 83042 #### [facility] [address] [place] [address], USAHCO3 molar conc (Bld)30 mmol/HNwam96-86Cra [facility] HospitalComment on above:Performed By: #### Iesha, 98548, 84814, 92029 #### [facility] [address] [place] [address], USAIONIZED CALCIUM1.21 mmol/LNormal1.13-1.32The [facility] HospitalComment on above:Performed By: #### Iesha, 60909, 33239, 15407 #### [facility] [address] [place] [address], USAMIN VOLUME7.7NoAdams County Hospital Comment on above:Performed By: #### Iesha, 00317, 51332, 15231 #### [facility] [address] [place] [address], USAMODALITYACOhio Valley Hospital Comment on above:Performed By: #### Iesha, 00846, 72602, 99387 #### [facility] [address] [place] [address], USAOxygen ppres (Bld)88 mm[Hg]Zavhsn25-989Ykw [facility] HospitalComment on above:Performed By: #### Iesha, 68710, 75613, 82116 #### [facility] [address] [place] [address], USAOxygen saturation in Blood95.4 %Qhuqjp05.0-97.0The [facility] HospitalComment on above:Performed By: #### Iesha, 87321, 51729, 53491 #### [facility] [address] [place] [address], UOFQRH238 jbExVqiiss42-05Tdh [facility] HospitalComment on above:Performed By: #### Iesha, 31265, 68129, 94779 #### [facility] [address] [place] [address], USAPEEP8.0 HRM80YsuuqtIix [facility] Comment on above:Performed By: #### Iesha, 59532, 65391, 19469 #### [facility] [address] [place] [address], USAPF OUACQ015 thHvRktyhn80-475Qay [facility] HospitalComment on above:Performed By: #### Iesha, 18883, 65291, 76892 #### [facility] [address] [place] [address], USApH (Bld)7.45 [pH]Normal7.35-7.45The [facility] HospitalComment on above:Performed By: #### Iesha, 16113, 77287, 54217 #### [facility] [address] [place] [address], USATIDAL VOLUME (VT) MZ522RrpdmxMskMain Campus Medical CenterComment on above:Performed By: #### Iesha, 24567, 24352, 48860 #### [facility] [address] [place] [address], USABASIC METABOLIC PANELon 23-78-8778Gtghnpf mass conc8.5 mg/dLLow8.6-10.3The [facility] HospitalComment on above:Order Comment: No: Do not add to previous drawPerformed By: #### 49269, 81573, 23710, 02546 #### [facility] [address] [place] [address], USAChloride molar cvkf734 mmol/JChlfxc57-913Lmy [facility] HospitalComment on above:Order Comment: No: Do not add to previous drawPerformed By: #### 66206, 54784, 84342, 12302 #### [facility] [address] [place] [address], USACO2 molar conc28 mmol/UAgpyny10-46Yrm [facility] HospitalComment on above:Order Comment: No: Do not add to previous draw Performed By: #### 14017, 02837, 98754, 57786 #### [facility] [address] [place] [address], USACreatinine mass conc0.59 mg/dLLow0.60-1.20The [facility] HospitalComment on above:Order Comment: No: Do not add to previous drawPerformed By: #### 47468, 72666, 12893, 91708 #### [facility] [address] [place] [address], USAGFR/1.73 sq M predicted among blacks MDRD vol rate/area (S/P/Bld)mL/min/{1.73_m2}Normal>60The [facility] HospitalComment on above:Order Comment: No: Do not add to previous drawPerformed By: #### 34646, 69131, 46216, 87668 #### [facility] [address] [place] [address], USAGFR/1.73 sq M predicted among non-blacks MDRD vol rate/area (S/P/Bld)mL/min/{1.73_m2}Normal>60The [facility] Comment on above:Order Comment: No: Do not add to previous drawPerformed By: #### 86186, 69255, 82373, 44770 #### [facility] [address] [place] [address], USAGlucose mass yjgq043 mg/vIRksk37-225Dpc [facility] HospitalComment on above:Order Comment: No: Do not add to previous drawPerformed By: #### 51904, 51869, 68993, 41048 #### [facility] [address] [place] [address], USAPotassium molar conc3.6 mmol/LNormal3.5-5.1The [facility] HospitalComment on above:Order Comment: No: Do not add to previous drawPerformed By: #### 59772, 32325, 55794, 90490 #### [facility] [address] [place] [address], USASodium molar xccw011 mmol/XFrcueg957-354Sle [facility] HospitalComment on above:Order Comment: No: Do not add to previous drawPerformed By: #### 58304, 79896, 75014, 76643 #### [facility] [address] [place] [address], USAUrea nitrogen mass conc20 mg/dLNormal7-25The [facility] HospitalComment on above:Order Comment: No: Do not add to previous drawPerformed By: #### 29160, 49436, 68349, 93957 #### [facility] [address] [place] [address], [facility]ALTH CENTERCBC W/DIFFon [id number] BASOPHILS0.0 10*3/uLNormal 0.0-0.2The [facility] HospitalComment on above:Order Comment: No: Do not add to previous drawPerformed By: #### 80669, 80869, 02009, 64870 #### [facility] [address] [place] [address], USAABS IMM GRANS0.2 10*3/uLNormal0.0-0.2The [facility] HospitalComment on above:Order Comment: No: Do not add to previous drawPerformed By: #### 49700, 97239, 89408, 17269 #### [facility] [address] [place] [address], USAABS NEUTROPHILS2.5 10*3/uLNormal1.6-7.6The [facility] HospitalComment on above:Order Comment: No: Do not add to previous drawPerformed By: #### 80531, 50825, 46978, 49792 #### [facility] [address] [facility] [place] [address], USABasophils #/vol (Bld)0.5 %Normal0.0-1.0The [facility] HospitalComment on above:Order Comment: No: Do not add to previous drawPerformed By: #### 93942, 93577, 03147, 40355 #### [facility] [address] [facility] [place] [address], USAEosinophils #/vol (Bld)0.0 10*3/uLNormal0.0-0.5The [facility] HospitalComment on above:Order Comment: No: Do not add to previous drawPerformed By: #### 83764, 07067, 07264, 63715 #### [facility] [address] [facility] [facility] [address], USAEosinophils/100 WBC (Bld)0.0 %Normal0.0-6.0The [facility] HospitalComment on above:Order Comment: No: Do not add to previous drawPerformed By: #### 50034, 73458, 60474, 85826 #### [facility] [address] [place] [address], USAErythrocyte distribution width Ratio (RBC)13.9 %Normal 11.5-15.0The [facility] HospitalComment on above:Order Comment: No: Do not add to previous drawPerformed By: #### 01251, 38182, 58798, 61526 #### [facility] [address] [place] [address], USAHematocrit Volume Fraction (Bld)34.3 %Low36.0-45.0The [facility] HospitalComment on above:Order Comment: No: Do not add to previous drawPerformed By: #### 61405, 15456, 91317, 65216 #### [facility] [address] [place] [address], TSAILE HEALTH CENTERHemoglobin mass conc (Bld)11.3 g/dLLow12.0-15.0The [facility] HospitalComment on above:Order Comment: No: Do not add to previous drawPerformed By: #### 01963, 73465, 40432, 66457 #### [facility] [address] [place] [address], USAIMMATURE GRANS3.6 %High0.0-1.0The [facility] HospitalComment on above:Order Comment: No: Do not add to previous draw Performed By: #### 43776, 42071, 48911, 59995 #### [facility] [address] [place] [address], USALymphocytes #/vol (Bld)1.2 10*3/uLNormal1.2-4.0The [facility] HospitalComment on above:Order Comment: No: Do not add to previous drawPerformed By: #### 60802, 32802, 89693, 93375 #### [facility] [address] [place] [address], USALymphocytes/100 WBC (Bld)29.0 %Obvhuf01.0-45.0The [facility] HospitalComment on above:Order Comment: No: Do not add to previous drawPerformed By: #### 71090, 56518, 17460, 39270 #### [facility] [address] [place] [address], MUSCOGEEH Entitic mass (RBC)28.0 omDsxgot19.0-33.0The [facility] HospitalComment on above:Order Comment: No: Do not add to previous drawPerformed By: #### 03728, 08266, 29666, 08976 #### [facility] [address] [place] [address], MUSCOGEEHC mass conc (RBC)32.9 g/gDWdwwlc61.0-35.0The [facility] HospitalComment on above:Order Comment: No: Do not add to previous drawPerformed By: #### 79800, 79375, 80611, 66509 #### [facility] [address] [place] [address], [facility] [place] [place] Entitic volume (RBC)85.1 rUXnjpvz68.0-98.0The [facility] HospitalComment on above:Order Comment: No: Do not add to previous drawPerformed By: #### 79421, 99997, 79048, 21968 #### [facility] [address] [place] [address], USAMonocytes #/vol (Bld)0.3 10*3/uLNormal0.1-1.0The [facility] HospitalComment on above:Order Comment: No: Do not add to previous drawPerformed By: #### 77515, 82906, 74581, 74860 #### [facility] [address] [place] [address], USAMONOS6.9 %Normal5.0-12.0The [facility] HospitalComment on above:Order Comment: No: Do not add to previous drawPerformed By: #### 40049, 53819, 35355, 11447 #### [facility] [address] [place] [address], USANeutrophils/100 WBC (Bld)60.0 %Wiwidr29.0-72.0The [facility] HospitalComment on above:Order Comment: No: Do not add to previous drawPerformed By: #### 32830, 38320, 99200, 21161 #### [facility] [address] [place] [address], USANucleated RBC/100 WBC Ratio (Bld)0 %Normal0-0The [facility] HospitalComment on above:Order Comment: No: Do not add to previous drawPerformed By: #### 18951, 04258, 41239, 11770 #### [facility] [address] [place] [address], USAPLAT EIH884 10*3/gVYqswsv112-604Wiw [facility] HospitalComment on above:Order Comment: No: Do not add to previous draw Performed By: #### 02297, 19952, 95507, 38942 #### [facility] [address] [place] [address], USARBC #/vol (Bld)4.03 10*6/uLNormal3.80-5.00The [facility] HospitalComment on above:Order Comment: No: Do not add to previous drawPerformed By: #### 69541, 26067, 70303, 14395 #### [facility] [address] [place] [address], USAWBC #/vol (Bld)4.20 10*3/uLNormal4.00-10.60The [facility] HospitalComment on above:Order Comment: No: Do not add to previous drawPerformed By: #### 12833, 67773, 82633, 26772 #### [facility] [address] [place] [address], USAEEG Reporton [id number] ReportName: Shabana Stallworth [facility] MR#: [id number] Age: 58 Physician: Colt Boggs M.D. Date: From 0630 hours on May 28, 2018, until 0630 hours on May 29, 2018 Lab#: 6 Date of : 1960 Patient Type: I NEURODIAGNOSTIC SERVICES REPORT [address] [place], [place] [address] Board of the [place] [employer] Accredited supervisor process testing: Jesse Muir. EEG DURATION: 23:53:41. CLINICAL HISTORY: [...] P/Raghu Matson MD Date Trans: 05/30/2018 05:46 Dipak/luis e DN_JN:[id number] cc: Colt Boggs M.D. [address] [place] [address] [facility] [address]WfsyzuUwkAdams County HospitalMAGNESIUM BLOODon 04-84-5376Wuxacvmgg mass conc1.8 mg/dLLow1.9-2.7The [facility] HospitalComment on above:Order Comment: No: Do not add to previous draw Performed By: #### 77721, 12025, 09602, 31837 #### [facility] [address] [place] [address], USAPHOSPHORUS BLOODon 71-19-5886Uyrwxukls mass conc2.0 mg/dL Low2.5-5.0The [facility] HospitalComment on above:Order Comment: No: Do not add to previous drawPerformed By: #### 44630, 38646, 38417, 84557 #### [facility] [address] [place] [address], USAPOC GLUCOSE LABon 94-92-0770Vpkaxpg mass myge624 mg/dLHigh 70-100The [facility] HospitalComment on above:Performed By: #### 83475, 97576, 59415, 62311 #### [facility] [address] [place] [address], USAGlucose mass mbdf025 mg/qEElyy19-523Zxb [facility] HospitalComment on above:Performed By: #### 98907, 96918, 30137, 14946 #### [facility] [address] [place] [address], USABASIC METABOLIC PANELon 67-41-6852Whhzywt mass conc8.7 mg/dLNormal8.6-10.3The [facility] HospitalComment on above:Order Comment: No: Do not add to previous drawPerformed By: #### 11134, 58316, 22331, 68629 #### [facility] [address] [place] [address], USAChloride molar orhv702 mmol/ZYwxkin86-029Idl [facility] HospitalComment on above:Order Comment: No: Do not add to previous drawPerformed By: #### 60446, 50220, 63030, 14103 #### [facility] [address] [place] [address], USACO2 molar conc26 mmol/PNfgjgy79-80Opw [facility] HospitalComment on above:Order Comment: No: Do not add to previous draw Performed By: #### 39543, 23370, 10547, 91177 #### [facility] [address] [place] [address], USACreatinine mass conc0.56 mg/dLLow0.60-1.20The [facility] HospitalComment on above:Order Comment: No: Do not add to previous drawPerformed By: #### 47200, 79900, 54167, 47363 #### [facility] [address] [place] [address], USAGFR/1.73 sq M predicted among blacks MDRD vol rate/area (S/P/Bld)mL/min/{1.73_m2}Normal>60The [facility] HospitalComment on above:Order Comment: No: Do not add to previous drawPerformed By: #### 92564, 60151, 81918, 06538 #### [facility] [address] [place] [address], USAGFR/1.73 sq M predicted among non-blacks MDRD vol rate/area (S/P/Bld)mL/min/{1.73_m2}Normal>60The [facility] Comment on above:Order Comment: No: Do not add to previous drawPerformed By: #### 17743, 70217, 55251, 51583 #### [facility] [address] [place] [address], USAGlucose mass ctvt079 mg/gCWagv69-660Wle [facility] HospitalComment on above:Order Comment: No: Do not add to previous drawPerformed By: #### 73431, 06719, 16839, 26959 #### [facility] [address] [place] [address], USAPotassium molar conc4.1 mmol/LNormal3.5-5.1The [facility] HospitalComment on above:Order Comment: No: Do not add to previous drawPerformed By: #### 65002, 26593, 70241, 22036 #### [facility] [address] [place] [address], USASodium molar doro352 mmol/LIms689-039Cpt [facility] HospitalComment on above:Order Comment: No: Do not add to previous drawPerformed By: #### 72628, 98767, 59962, 59875 #### [facility] [address] [place] [address], USAUrea nitrogen mass conc20 mg/dLNormal7-25The [facility] HospitalComment on above:Order Comment: No: Do not add to previous drawPerformed By: #### 30738, 62612, 20567, 84059 #### [facility] [address] [place] [address], USACBC COMPLETE BLOOD COUNTon 93-12-9488Ruapppglewg distribution width Ratio (RBC)13.7 %Vpooye89.5-15.0The [facility] HospitalComment on above:Order Comment: No: Do not add to previous draw Performed By: #### 09385, 34251, 60910, 43641 #### [facility] [address] [place] [address], USAHematocrit Volume Fraction (Bld)34.0 %Low36.0-45.0The [facility] HospitalComment on above:Order Comment: No: Do not add to previous drawPerformed By: #### 28876, 93491, 70888, 38013 #### [facility] [address] [place] [address], [facility] HEALTH CENTERHemoglobin mass conc (Bld)11.2 g/dLLow12.0-15.0The [facility] HospitalComment on above:Order Comment: No: Do not add to previous drawPerformed By: #### 79440, 11233, 94030, 07310 #### [facility] [address] [place] [address], [facility] Entitic mass (RBC)27.6 dzXffwof01.0-33.0The [facility] HospitalComment on above:Order Comment: No: Do not add to previous drawPerformed By: #### 36441, 34886, 17717, 25373 #### [facility] [address] [place] [address], MUSCOGEEHC mass conc (RBC)32.9 g/gNEuxmnl70.0-35.0The [facility] HospitalComment on above:Order Comment: No: Do not add to previous drawPerformed By: #### 00746, 36729, 60673, 80090 #### [facility] [address] [place] [address], [facility] [place] Entitic volume (RBC)83.7 dDGcliik02.0-98.0The [facility] HospitalComment on above:Order Comment: No: Do not add to previous drawPerformed By: #### 74809, 74689, 87548, 65123 #### [facility] [address] [place] [address], [facility] HEALTH CENTERNucleated RBC/100 WBC Ratio (Bld)0 %Normal0-0The [facility] HospitalComment on above:Order Comment: No: Do not add to previous drawPerformed By: #### 61572, 98682, 55802, 83434 #### [facility] [address] [place] [address], USAPLAT XDW913 10*3/iYKjgsxp608-832Wol [facility] HospitalComment on above:Order Comment: No: Do not add to previous draw Performed By: #### 14267, 92393, 30718, 95867 #### [facility] [address] [place] [address], [facility] CENTERRBC #/vol (Bld)4.06 10*6/uLNormal3.80-5.00The [facility] HospitalComment on above:Order Comment: No: Do not add to previous drawPerformed By: #### 24410, 65730, 86205, 78356 #### [facility] [address] [place] [address], [facility] HEALTH CENTERWBC #/vol (Bld)3.83 10*3/uLLow4.00-10.60The [facility] HospitalComment on above:Order Comment: No: Do not add to previous drawPerformed By: #### 15018, 03163, 45907, 57257 #### [facility] [address] [place] [address], T[facility]ILE HEALTH CENTEREEG Reporton [id number] ReportName: Shabana Stallworth [facility] MR#: [id number] Age: 58 Physician: Colt Boggs M.D. Date: From 0630 hours on May 27, 2018, until 0630 hours on May 28, 2018. Lab#: Date of : 1960 Patient Type: I NEURODIAGNOSTIC SERVICES REPORT [address] [place], [place] [address] Board of the [place] [employer] Accredited supervisor process testing: Jesse Muir. EEG DURATION: 23:57 and 28 [...] MD Date Trans: 05/29/2018 08:51 Dipak/luis e DN_JN:[id number] cc: Colt Boggs M.D. [address] [place] [address] [facility] [address]MyvgohTwyOhio Valley HospitalMAGNESIUM BLOODon 18-86-7406Ajvdgfvmd mass conc1.9 mg/dLNormal1.9-2.7The [facility] HospitalComment on above:Order Comment: No: Do not add to previous drawPerformed By: #### 93341, 49499, 18769, 31101 #### [facility] [address] [place] [address], USAPHOSPHORUS BLOODon 24-39-6537Cyptmjxhd mass conc2.0 mg/dL Low2.5-5.0The [facility] HospitalComment on above:Order Comment: No: Do not add to previous drawPerformed By: #### 05231, 65235, 28929, 23192 #### [facility] [address] [place] [address], USABASIC METABOLIC PANELon 93-83-2565Xmcnpvq mass conc8.5 mg/dLLow8.6-10.3The [facility] HospitalComment on above:Order Comment: No: Do not add to previous drawPerformed By: #### 27218, 32722, 16930, 90021 #### [facility] [address] [place] [address], USAChloride molar dluh559 mmol/GTslrnd62-193Sxb [facility] HospitalComment on above:Order Comment: No: Do not add to previous drawPerformed By: #### 65508, 18579, 98293, 07304 #### [facility] [address] [place] [address], USACO2 molar conc22 mmol/LYdcenn53-34Oqs [facility] HospitalComment on above:Order Comment: No: Do not add to previous draw Performed By: #### 84950, 38167, 24636, 29886 #### [facility] [address] [place] [address], USACreatinine mass conc0.54 mg/dLLow0.60-1.20The [facility] HospitalComment on above:Order Comment: No: Do not add to previous drawPerformed By: #### 20198, 11427, 11627, 82994 #### [facility] [address] [place] [address], USAGFR/1.73 sq M predicted among blacks MDRD vol rate/area (S/P/Bld)mL/min/{1.73_m2}Normal>60The [facility] HospitalComment on above:Order Comment: No: Do not add to previous drawPerformed By: #### 15312, 46555, 21799, 65674 #### [facility] [address] [place] [address], USAGFR/1.73 sq M predicted among non-blacks MDRD vol rate/area (S/P/Bld)mL/min/{1.73_m2}Normal>60The [facility] Comment on above:Order Comment: No: Do not add to previous drawPerformed By: #### 29091, 33341, 74544, 78812 #### [facility] [address] [place] [address], USAGlucose mass hafi308 mg/oPMqck27-893Cwe [facility] HospitalComment on above:Order Comment: No: Do not add to previous drawPerformed By: #### 34327, 57717, 89086, 55971 #### [facility] [address] [place] [address], USAPotassium molar conc3.9 mmol/LNormal3.5-5.1The [facility] HospitalComment on above:Order Comment: No: Do not add to previous drawPerformed By: #### 18256, 25986, 53227, 38376 #### [facility] [address] [place] [address], USASodium molar yajq377 mmol/LNflvmj016-736Hwz [facility] HospitalComment on above:Order Comment: No: Do not add to previous drawPerformed By: #### 51431, 08739, 34669, 51222 #### [facility] [address] [place] [address], USAUrea nitrogen mass conc15 mg/dLNormal7-25The [facility] HospitalComment on above:Order Comment: No: Do not add to previous drawPerformed By: #### 11662, 65021, 68578, 93470 #### [facility] [address] [place] [address], [facility] COMPLETE BLOOD COUNTon 17-87-3696Hfnvepwsgxy distribution width Ratio (RBC)13.9 %Jhqrdf16.5-15.0The [facility] HospitalComment on above:Order Comment: No: Do not add to previous draw Performed By: #### 78577, 08139, 82314, 42182 #### [facility] [address] [place] [address], USAHematocrit Volume Fraction (Bld)32.2 %Low36.0-45.0The [facility] HospitalComment on above:Order Comment: No: Do not add to previous drawPerformed By: #### 22242, 33304, 34075, 74306 #### [facility] [address] [place] [address], [facility] HEALTH CENTERHemoglobin mass conc (Bld)10.4 g/dLLow12.0-15.0The [facility] HospitalComment on above:Order Comment: No: Do not add to previous drawPerformed By: #### 97914, 65647, 40969, 26649 #### [facility] [address] [place] [address], [facility] Entitic mass (RBC)27.6 uiLfgnwl80.0-33.0The [facility] HospitalComment on above:Order Comment: No: Do not add to previous drawPerformed By: #### 22641, 47109, 30069, 85264 #### [facility] [address] [place] [address], MUSCOGEEHC mass conc (RBC)32.3 g/sDWpiezd11.0-35.0The [facility] HospitalComment on above:Order Comment: No: Do not add to previous drawPerformed By: #### 31320, 37460, 05696, 54066 #### [facility] [address] [place] [address], MUSCOGEEV Entitic volume (RBC)85.4 pBLtfcwp49.0-98.0The [facility] HospitalComment on above:Order Comment: No: Do not add to previous drawPerformed By: #### 54453, 81121, 41552, 25081 #### [facility] [address] [place] [address], USANucleated RBC/100 WBC Ratio (Bld)0 %Normal0-0The [facility] HospitalComment on above:Order Comment: No: Do not add to previous drawPerformed By: #### 96093, 40101, 46652, 83678 #### [facility] [address] [place] [address], USAPLAT CYX805 10*3/oMAyofli233-880Itg [facility] HospitalComment on above:Order Comment: No: Do not add to previous draw Performed By: #### 14270, 15185, 46294, 45857 #### [facility] [address] [facility] [place] [address], [facility] CENTERRBC #/vol (Bld)3.77 10*6/uLLow3.80-5.00The [facility] HospitalComment on above:Order Comment: No: Do not add to previous drawPerformed By: #### 78273, 51585, 43875, 70340 #### [facility] [address] [facility] [place] [address], [facility]ALTH CENTERWBC #/vol (Bld)3.77 10*3/uLLow4.00-10.60The [facility] HospitalComment on above:Order Comment: No: Do not add to previous drawPerformed By: #### 35933, 66840, 66813, 48860 #### [facility] [address] [facility] [place] [address], USACORTISOLon 02-19-1238KUGHEHZF4.6 mcg/dLNormalThe [facility] HospitalComment on above:Order Comment: No: Do not add to previous drawResult Comment: Reference Range: AM 6.0-23.0 mcg/dL PM 0.0-9.0 mcg/dLPerformed By: #### 58602, 34819, 57100, 14912 #### [facility] [address] [place] [address], USAMAGNESIUM BLOODon 10-56-1801Kffkbxrhp mass conc1.8 mg/dLLow 1.9-2.7The [facility] HospitalComment on above:Order Comment: No: Do not add to previous drawPerformed By: #### 78496, 33790, 47244, 63160 #### [facility] [address] [place] [address], USAPHOSPHORUS BLOODon 54-72-5317Qosroyxmc mass conc3.0 mg/dL Normal2.5-5.0The [facility] HospitalComment on above:Order Comment: No: Do not add to previous drawPerformed By: #### 88346, 73376, 61260, 45076 #### [facility] [address] [place] [address], [place]YROGLOBULIN [place] [address]29so 63-57-1617Qpxmmbeqjgspy Ab Qn [IU]/mLNormal0.0-4.0The [facility] HospitalComment on above: Order Comment: No: Do not add to previous drawResult Comment: INTERPRETIVE INFORMATION: Thyroglobulin Antibody A value of 4.0 IU/mL or less indicates a negative result for thyroglobulin antibodies. The Thyroglobulin Antibody assay is being performed using the [employer] Access DxI method. Performed by [employer], [address] [place] [address] [email or web address], Jack Torres MD - Lab. DirectorARTERIAL BLOOD GAS WITH ICAon 89-82-9032EHZN EXCESS-5 mmol/LLow-2-2The [facility] Comment on above:Performed By: #### 80314, 13810, 87847, 69346 #### [facility] [address] [place] [address], USADELIVERY SYSTEMSSelect Medical Cleveland Clinic Rehabilitation Hospital, Edwin ShawComment on above:Performed By: #### Iesha, 99079, 23500, 37084 #### [facility] [address] [place] [address], BAQMSU121 %Tvpesy69-800Ygq [facility] Comment on above:Performed By: #### Iesha, 56270, 87734, 34696 #### [facility] [address] [place] [address], USAHCO3 molar conc (Bld)21 mmol/ZBlc08-48Ryi [facility] HospitalComment on above:Performed By: #### Iesha, 40819, 01641, 66664 #### [facility] [address] [place] [address], USAIONIZED CALCIUM1.25 mmol/LNormal1.13-1.32The [facility] HospitalComment on above:Performed By: #### Iesha, 99301, 56244, 17616 #### [facility] [address] [place] [address], USAMIN VOLUME6.1NormalThe [facility] Comment on above:Performed By: #### Iesha, 75830, 97779, 39843 #### [facility] [address] [place] [address], USAMODALITYACNormalThe [facility] Comment on above:Performed By: #### Iesha, 06920, 36416, 25758 #### [facility] [address] [place] [address], USAOxygen ppres (Bld)135 mm[Hg]Critically vadr59-256Uyt [facility] HospitalComment on above:Performed By: #### Iesha, 77523, 44810, 48321 #### [facility] [address] [place] [address], USAOxygen saturation in Blood95.5 %Wrqmhr40.0-97.0The [facility] HospitalComment on above:Performed By: #### Iesha, 41350, 88582, 14681 #### [facility] [address] [place] [address], LVKREB724 zvEbBeittu75-02Dta [facility] HospitalComment on above:Performed By: #### 69880, 65178, 42834, 69268 #### [facility] [address] [place] [address], USAPEEP8.0 UEK46YyupgfVdjAdams County Hospital Comment on above:Performed By: #### 43366, 91859, 72276, 34821 #### [facility] [address] [place] [address], USApH (Bld)7.30 [pH]Low7.35-7.45The [facility] HospitalComment on above:Performed By: #### 99920, 90122, 31943, 68205 #### [facility] [address] [place] [address], USATIDAL VOLUME (VT) AS253LmxpcpVvcAdams County HospitalComment on above:Performed By: #### 35788, 58608, 45634, 39134 #### [facility] [address] [place] [address], USABASIC METABOLIC PANELon 30-77-9919Wevfdrs mass conc8.1 mg/dLLow8.6-10.3The [facility] HospitalComment on above:Order Comment: No: Do not add to previous drawPerformed By: #### 64302, 62584, 08012, 75536 #### [facility] [address] [place] [address], USAChloride molar wpjy547 mmol/PMpto62-309Dih [facility] HospitalComment on above:Order Comment: No: Do not add to previous drawPerformed By: #### 87947, 63925, 70636, 44315 #### [facility] [address] [place] [address], USACO2 molar conc23 mmol/NYekojp72-91Hti [facility] HospitalComment on above:Order Comment: No: Do not add to previous draw Performed By: #### 45047, 66569, 07553, 50841 #### [facility] [address] [place] [address], USACreatinine mass conc0.63 mg/dLNormal0.60-1.20The [facility] HospitalComment on above:Order Comment: No: Do not add to previous drawPerformed By: #### 83378, 42372, 64420, 27582 #### [facility] [address] [place] [address], USAGFR/1.73 sq M predicted among blacks MDRD vol rate/area (S/P/Bld)mL/min/{1.73_m2}Normal>60The [facility] HospitalComment on above:Order Comment: No: Do not add to previous drawPerformed By: #### 58265, 34854, 65352, 74328 #### [facility] [address] [place] [address], USAGFR/1.73 sq M predicted among non-blacks MDRD vol rate/area (S/P/Bld)mL/min/{1.73_m2}Normal>60The [facility] Comment on above:Order Comment: No: Do not add to previous drawPerformed By: #### 88292, 02551, 26602, 10538 #### [facility] [address] [place] [address], USAGlucose mass conc87 mg/zSVcozuf32-248Orx [facility] HospitalComment on above:Order Comment: No: Do not add to previous drawPerformed By: #### 10579, 44969, 11963, 22323 #### [facility] [address] [place] [address], USAPotassium molar conc3.7 mmol/LNormal3.5-5.1The [facility] HospitalComment on above:Order Comment: No: Do not add to previous drawPerformed By: #### 46659, 88456, 19988, 46619 #### [facility] [address] [place] [address], USASodium molar khvc953 mmol/QPsoddd714-891Lsw [facility] HospitalComment on above:Order Comment: No: Do not add to previous drawPerformed By: #### 04376, 34030, 31088, 97077 #### [facility] [address] [place] [address], USAUrea nitrogen mass conc8 mg/dLNormal7-25The [facility] HospitalComment on above:Order Comment: No: Do not add to previous drawPerformed By: #### 72900, 04962, 87412, 42295 #### [facility] [address] [place] [address], USACBC COMPLETE BLOOD COUNTon 04-16-0855Meinwequudd distribution width Ratio (RBC)14.1 %Kxcznn91.5-15.0The [facility] HospitalComment on above:Order Comment: No: Do not add to previous draw Performed By: #### 20983, 41779, 89035, 10744 #### [facility] [address] [place] [address], USAHematocrit Volume Fraction (Bld)32.7 %Low36.0-45.0The [facility] HospitalComment on above:Order Comment: No: Do not add to previous drawPerformed By: #### 25462, 88460, 63253, 63037 #### [facility] [address] [place] [address], USAHemoglobin mass conc (Bld)10.6 g/dLLow12.0-15.0The [facility] HospitalComment on above:Order Comment: No: Do not add to previous drawPerformed By: #### 03117, 19322, 29016, 56799 #### [facility] [address] [place] [address], MUSCOGEEH Entitic mass (RBC)28.0 dhMptzwu39.0-33.0The [facility] HospitalComment on above:Order Comment: No: Do not add to previous drawPerformed By: #### 79970, 13743, 28323, 04133 #### [facility] [address] [place] [address], MUSCOGEEHC mass conc (RBC)32.4 g/sCPkcktc59.0-35.0The [facility] HospitalComment on above:Order Comment: No: Do not add to previous drawPerformed By: #### 67172, 14025, 63900, 02109 #### [facility] [address] [facility] [place] [address], [facility] [place] Entitic volume (RBC)86.5 cMNpnbek82.0-98.0The [facility] HospitalComment on above:Order Comment: No: Do not add to previous drawPerformed By: #### 29330, 08011, 05995, 06022 #### [facility] [address] [place] [address], [facility]ALTH CENTERNucleated RBC/100 WBC Ratio (Bld)0 %Normal0-0The [facility] HospitalComment on above:Order Comment: No: Do not add to previous drawPerformed By: #### 88514, 34571, 09178, 89050 #### [facility] [address] [place] [address], USAPLAT QVP919 10*3/qDDoyejz603-696Pjj [facility] HospitalComment on above:Order Comment: No: Do not add to previous draw Performed By: #### 76487, 56289, 05735, 33669 #### [facility] [address] [place] [address], [facility]ALTH CENTERRBC #/vol (Bld)3.78 10*6/uLLow3.80-5.00The [facility] HospitalComment on above:Order Comment: No: Do not add to previous drawPerformed By: #### 14836, 98100, 80630, 10487 #### [facility] [address] [place] [address], USAWBC #/vol (Bld)3.84 10*3/uLLow4.00-10.60The [facility] HospitalComment on above:Order Comment: No: Do not add to previous drawPerformed By: #### 29841, 11682, 98441, 30662 #### [facility] [address] [place] [address], USAEEG Reporton [id number] ReportName: Shabana Stallworth [facility] MR#: [id number] Age: 58 Physician: Colt Boggs M.D. Date: From 6:30 on May 26, 2018, until 6:30 hours on May 27, 2018 Lab#: Date of : 1960 Patient Type: I NEURODIAGNOSTIC SERVICES REPORT [address] [place], [place] [address] Board of the [place] [employer] Accredited supervisor process testing: Jesse Muir. EEG DURATION: 23:57 and 13 [...] Matson MD Date Trans: 05/27/2018 08:32 P/mmo DN_JN:[id number] cc: Colt Boggs M.D. [address] [place] [id number] Valley HospitalEE Report Name: Shabana Stallworth [facility] MR#: [id number] Age: 58 Physician: Colt Boggs M.D. Date: From 0630 hours on May 25, 2018, until 0630 hours on May 26, 2018 Lab#: 3 Date of : 1960 Patient Type: I NEURODIAGNOSTIC SERVICES REPORT [address] [place], [place] [address] Board of the [place] [employer] Accredited supervisor process testing: Jesse Muir. EEG DURATION: 23:57:32. CLINICAL HISTORY: [...] MD Date Trans: 05/27/2018 07:09 Dipak/luis e DN_JN:[id number] cc: Colt Boggs M.D. [address] [place] [id number] Valley HospitalMAGNESIUM BLOODon 94-15-2161Wporrbsqy mass conc1.7 mg/dLLow1.9-2.7The [facility] HospitalComment on above:Order Comment: No: Do not add to previous draw Performed By: #### 51617, 61776, 22118, 64636 #### [facility] [address] [facility] [place] [address], T[facility] HEALTH CENTERPHOSPHORUS BLOODon 88-13-2638Uqmbadqzr mass conc3.0 mg/dL Normal2.5-5.0The [facility] HospitalComment on above:Order Comment: No: Do not add to previous drawPerformed By: #### 48228, 49657, 29102, 39361 #### [facility] [address] [place] [address], USAARTERIAL BLOOD GAS WITH ICAon 96-19-5839IREX EXCESS-3 mmol/LLow-2-2The [facility] HospitalComment on above:Performed By: #### 55858 #### [facility] [address] [place] [address], USADELIVERY SYSTEMSMVOhio Valley HospitalComment on above:Performed By: #### 52709 #### [facility] [address] [place] [address], PPNKCE615 %Smjvpp39-464Hxw [facility] Comment on above:Performed By: #### 78755 #### [facility] [address] [place] [address], USAHCO3 molar conc (Bld)22 mmol/HIwn78-15Yhn [facility] HospitalComment on above:Performed By: #### 18601 #### [facility] [address] [place] [address], USAIONIZED CALCIUM1.19 mmol/LNormal1.13-1.32The [facility] HospitalComment on above:Performed By: #### 13156 #### [facility] [address] [place] [address], USAMIN VOLUME6.1NormalThe [facility] Comment on above:Performed By: #### [id number] #### [facility] [address] [facility] [place] [address], USAMODALITYACNoAdams County Hospital Comment on above:Performed By: #### [id number] #### [facility] [address] [facility] [place] [address], USAOxygen ppres (Bld)162 mm[Hg]Critically fffj63-976Diq [facility] HospitalComment on above:Performed By: #### [id number] #### [facility] [address] [place] [address], USAOxygen saturation in Blood96.4 %Snnpbd10.0-97.0The [facility] HospitalComment on above:Performed By: #### [id number] #### [facility] [address] [place] [address], BREBSR711 jpGpMhostq09-52Xir [facility] HospitalComment on above:Performed By: #### [id number] #### [facility] [address] [place] [address], USAPEEP8.0 EJN29HlzvobJei [facility] Comment on above:Performed By: #### [id number] #### [facility] [address] [place] [address], USApH (Bld)7.35 [pH]Normal7.35-7.45The [facility] HospitalComment on above:Performed By: #### [id number] #### [facility] [address] [place] [address], USATIDAL VOLUME (VT) CZ750SsjgxgXisMain Campus Medical CenterComment on above:Performed By: #### [id number] #### [facility] [address] [place] [address], USABASIC METABOLIC PANELon 27-51-5367Cldpkmr mass conc7.8 mg/dLLow8.6-10.3The [facility] HospitalComment on above:Order Comment: No: Do not add to previous drawPerformed By: #### [id number] #### [facility] [address] [place] [address], USAChloride molar ocfy645 mmol/MMrrc14-785Itn [facility] HospitalComment on above:Order Comment: No: Do not add to previous drawPerformed By: #### [id number] #### [facility] [address] [place] [address], USACO2 molar conc22 mmol/GWlgxuk89-49Mzi [facility] HospitalComment on above:Order Comment: No: Do not add to previous draw Performed By: #### [id number] #### [facility] [address] [place] [address], USACreatinine mass conc0.60 mg/dLNormal0.60-1.20The [facility] HospitalComment on above:Order Comment: No: Do not add to previous drawPerformed By: #### [id number] #### [facility] [address] [place] [address], USAGFR/1.73 sq M predicted among blacks MDRD vol rate/area (S/P/Bld)mL/min/{1.73_m2}Normal>60The [facility] HospitalComment on above:Order Comment: No: Do not add to previous drawPerformed By: #### [id number] #### [facility] [address] [place] [address], USAGFR/1.73 sq M predicted among non-blacks MDRD vol rate/area (S/P/Bld)mL/min/{1.73_m2}Normal>60The [facility] Comment on above:Order Comment: No: Do not add to previous drawPerformed By: #### [id number] #### [facility] [address] [place] [address], USAGlucose mass conc85 mg/aZKcjzxt49-607Wrl [facility] HospitalComment on above:Order Comment: No: Do not add to previous drawPerformed By: #### [id number] #### [facility] [address] [place] [address], USAPotassium molar conc3.8 mmol/LNormal3.5-5.1The [facility] HospitalComment on above:Order Comment: No: Do not add to previous drawPerformed By: #### [id number] #### [facility] [address] [facility] [place] [address], TSAILE HEALTH CENTERSodium molar rwwk498 mmol/YIztxid944-658Yqu [facility] HospitalComment on above:Order Comment: No: Do not add to previous drawPerformed By: #### [id number] #### [facility] [address] [facility] [place] [address], USAUrea nitrogen mass conc7 mg/dLNormal7-25The [facility] HospitalComment on above:Order Comment: No: Do not add to previous drawPerformed By: #### [id number] #### [facility] [address] [facility] [place] [address], TSAILE HEALTH CENTERCBC W/DIFFon [id number] BASOPHILS0.0 10*3/uLNormal 0.0-0.2The [facility] HospitalComment on above:Order Comment: No: Do not add to previous drawPerformed By: #### [id number] #### [facility] [address] [facility] [place] [address], USAABS IMM GRANS0.0 10*3/uLNormal0.0-0.2The [facility] HospitalComment on above:Order Comment: No: Do not add to previous drawPerformed By: #### 75689 #### [facility] [address] [facility] [place] [address], USAABS NEUTROPHILS1.9 10*3/uLNormal1.6-7.6The [facility] HospitalComment on above:Order Comment: No: Do not add to previous drawPerformed By: #### [id number] #### [facility] [address] [facility] [place] [address], USABasophils #/vol (Bld)1.2 %High0.0-1.0The [facility] HospitalComment on above:Order Comment: No: Do not add to previous drawPerformed By: #### [id number] #### [facility] [address] [place] [address], USAEosinophils #/vol (Bld)0.1 10*3/uLNormal0.0-0.5The [facility] HospitalComment on above:Order Comment: No: Do not add to previous drawPerformed By: #### [id number] #### [facility] [address] [place] [address], USAEosinophils/100 WBC (Bld)4.0 %Normal0.0-6.0The [facility] HospitalComment on above:Order Comment: No: Do not add to previous drawPerformed By: #### [id number] #### [facility] [address] [place] [address], USAErythrocyte distribution width Ratio (RBC)14.6 %Normal 11.5-15.0The [facility] HospitalComment on above:Order Comment: No: Do not add to previous drawPerformed By: #### [id number] #### [facility] [address] [facility] [facility] [place] [address], USAHematocrit Volume Fraction (Bld)35.2 %Low36.0-45.0The [facility] HospitalComment on above:Order Comment: No: Do not add to previous drawPerformed By: #### [id number] #### [facility] [address] [facility] [facility] [place] [address], USAHemoglobin mass conc (Bld)10.9 g/dLLow12.0-15.0The [facility] HospitalComment on above:Order Comment: No: Do not add to previous drawPerformed By: #### [id number] #### [facility] [address] [place] [address], USAIMMATURE GRANS0.6 %Normal0.0-1.0The [facility] HospitalComment on above:Order Comment: No: Do not add to previous draw Performed By: #### [id number] #### [facility] [address] [place] [address], TSAILE HEALTH CENTERLymphocytes #/vol (Bld)1.0 10*3/uLLow1.2-4.0The [facility] HospitalComment on above:Order Comment: No: Do not add to previous drawPerformed By: #### [id number] #### [facility] [address] [place] [id number], TSAILE HEALTH CENTERLymphocytes/100 WBC (Bld)29.3 %Ahhrxi55.0-45.0The [facility] HospitalComment on above:Order Comment: No: Do not add to previous drawPerformed By: #### 11311 #### [facility] [address] [place] [address], MUSCOGEEH Entitic mass (RBC)27.8 syHjxfso73.0-33.0The [facility] HospitalComment on above:Order Comment: No: Do not add to previous drawPerformed By: #### [id number] #### [facility] [address] [facility] [place] [address], MUSCOGEEHC mass conc (RBC)31.0 g/dLLow32.0-35.0The [facility] HospitalComment on above:Order Comment: No: Do not add to previous drawPerformed By: #### [id number] #### [facility] [address] [facility] [place] [address], MUSCOGEEV Entitic volume (RBC)89.8 eJMyfkon52.0-98.0The [facility] HospitalComment on above:Order Comment: No: Do not add to previous drawPerformed By: #### [id number] #### [facility] [address] [facility] [place] [address], USAMonocytes #/vol (Bld)0.2 10*3/uLNormal0.1-1.0The [facility] HospitalComment on above:Order Comment: No: Do not add to previous drawPerformed By: #### [id number] #### [facility] [address] [place] [address], USAMONOS7.0 %Normal5.0-12.0The [facility] HospitalComment on above:Order Comment: No: Do not add to previous drawPerformed By: #### 66176 #### [facility] [address] [place] [address], USANeutrophils/100 WBC (Bld)57.9 %Phoclu67.0-72.0The [facility] HospitalComment on above:Order Comment: No: Do not add to previous drawPerformed By: #### 48182 #### [facility] [address] [place] [address], USANucleated RBC/100 WBC Ratio (Bld)0 %Normal0-0The [facility] HospitalComment on above:Order Comment: No: Do not add to previous drawPerformed By: #### [id number] #### [facility] [address] [place] [address], USAPLAT UOT620 10*3/kIHxdyqz174-052Iuy [facility] HospitalComment on above:Order Comment: No: Do not add to previous draw Performed By: #### [id number] #### [facility] [address] [place] [address], USARBC #/vol (Bld)3.92 10*6/uLNormal3.80-5.00The [facility] HospitalComment on above:Order Comment: No: Do not add to previous drawPerformed By: #### [id number] #### [facility] [address] [place] [address], USAWBC #/vol (Bld)3.28 10*3/uLLow4.00-10.60The [facility] HospitalComment on above:Order Comment: No: Do not add to previous drawPerformed By: #### [id number] #### [facility] [address] [place] [address], USAEEG Reporton [id number] ReportName: Shabana Stallworth [facility] MR#: [id number] Age: 58 Physician: Colt Boggs M.D. Date: 05/24/2018, Day #2. Lab#: Date of : 1960 Patient Type: I NEURODIAGNOSTIC SERVICES REPORT [address] [place], [place] [address] Board of the [place] [employer] Accredited Laboratory STUDY: Clinical Neurophysiology [...] May 25, 2018, and is suggestive of kkysbdjp-nu-qxwstw diffuse encephalopathy. No clear epileptiform discharges or EEG seizures were seen during this recording. There was no push button event. Electronically Signed by: Raghu Matson MD 06/02/2018 09:51 P Raghu Matson MD Date Dict: 05/25/2018/09:23 A/Raghu Matson MD Date Trans: 05/26/2018 07:34 A/luis e DN_JN:[id number] cc: Colt Boggs M.D. [address] [place] [address] [facility] [id number] County HospitalMAGNESIUM BLOODon 21-54-3963Ngtvhkxdk mass conc1.9 mg/dLNormal1.9-2.7The [facility] HospitalComment on above:Order Comment: No: Do not add to previous drawPerformed By: #### [id number] #### [facility] [address]PHOSPHORUS BLOODon 24-46-5590Zeoquqfvz mass conc2.7 mg/dL Normal2.5-5.0The [facility] HospitalComment on above:Order Comment: No: Do not add to previous drawPerformed By: #### [id number] #### [facility] [address]*CSF CULTUREon 05-25-2018*CSF CULTUREClinical Report: (D) Specimen/Source: CSF/Tube 3 Collected: 05/25/2018 15:00 Status: Final Last Updated: 05/30/2018 06:30 (1) Lumbar Puncture. GRAM (Final) No Polys Seen No Bacteria Seen CYTOSPUN (Final) This Gram Stain was done on a cytocentrifuged specimen CULT RES (Final) No Growth Day 5NoAdams County HospitalComment on above: Order Comment: No: Do not add to previous drawPerformed By: #### [id number] #### [facility] [address] [place] [address], USAALBUMIN FLUID MISCon 10-34-6156Vjqrxyb mass concg/dLNormal The [facility] HospitalComment on above:Order Comment: No: Do not add to previous drawResult Comment: The reference range and other method performance specifications have not been established for this test in fluids. the test result should be integrated into the clinical context for interpretation.Performed By: #### [id number] #### [facility] [address] [place] [address], USAARTERIAL BLOOD GAS WITH ICAon [id number] EXCESS-2 mmol/YElwyhd-9-5Sgy [facility] HospitalComment on above: Performed By: #### [id number] #### [facility] [address] [place] [address], USADELIVERY SYSTEMSMVNoAdams County HospitalComment on above:Performed By: #### [id number] #### [facility] [address] [place] [address], QYHVQJ664 %Ypsnpb67-374Djk [facility] Comment on above:Performed By: #### 60469 #### [facility] [address] [place] [address], USAHCO3 molar conc (Bld)24 mmol/CPmfabj77-32Htl [facility] HospitalComment on above:Performed By: #### 51511 #### [facility] [address] [place] [address], USAIONIZED CALCIUM1.16 mmol/LNormal1.13-1.32The [facility] HospitalComment on above:Performed By: #### 46423 #### [facility] [address] [place] [address], USAMIN VOLUME5.8NoAdams County Hospital Comment on above:Performed By: #### [id number] #### [facility] [address] [place] [address], USAMODALITYACNoAdams County Hospital Comment on above:Performed By: #### 42291 #### [facility] [address] [place] [address], USAOxygen ppres (Bld)131 mm[Hg]Critically vpoc61-600Vte [facility] HospitalComment on above:Performed By: #### 59754 #### [facility] [address] [place] [address], USAOxygen saturation in Blood96.3 %Hqmtsy01.0-97.0The [facility] HospitalComment on above:Performed By: #### 31523 #### [facility] [address] [place] [address], KWEJOF744 qaPaAifffy98-72Cpc [facility] HospitalComment on above:Performed By: #### [id number] #### [facility] [address] [place] [address], USAPEEP8.0 ZDK82PvcsuvTlpAdams County Hospital Comment on above:Performed By: #### [id number] #### [facility] [address] [place] [address], USApH (Bld)7.34 [pH]Low7.35-7.45The [facility] HospitalComment on above:Performed By: #### 77700 #### [facility] [address] [place] [address], USATIDAL VOLUME (VT) FW567FfymhmAbvMain Campus Medical CenterComment on above:Performed By: #### 79613 #### [facility] [address] [place] [address], USABASIC METABOLIC PANELon 91-31-9977Uroxvry mass conc7.8 mg/dLLow8.6-10.3The [facility] HospitalComment on above:Order Comment: No: Do not add to previous drawPerformed By: #### [id number] #### [facility] [address] [place] [address], USAChloride molar rasd717 mmol/LGaam52-559Bne [facility] HospitalComment on above:Order Comment: No: Do not add to previous drawPerformed By: #### [id number] #### [facility] [address] [place] [address], USACO2 molar conc22 mmol/NWtmlfy55-24Xdq [facility] HospitalComment on above:Order Comment: No: Do not add to previous draw Performed By: #### [id number] #### [facility] [address] [place] [address], USACreatinine mass conc0.75 mg/dLNormal0.60-1.20The [facility] HospitalComment on above:Order Comment: No: Do not add to previous drawPerformed By: #### 85050 #### [facility] [address] [place] [address], USAGFR/1.73 sq M predicted among blacks MDRD vol rate/area (S/P/Bld)mL/min/{1.73_m2}Normal>60The [facility] HospitalComment on above:Order Comment: No: Do not add to previous drawPerformed By: #### 23221 #### [facility] [address] [place] [address], USAGFR/1.73 sq M predicted among non-blacks MDRD vol rate/area (S/P/Bld)mL/min/{1.73_m2}Normal>60The [facility] Comment on above:Order Comment: No: Do not add to previous drawPerformed By: #### 27561 #### [facility] [address] [place] [address], USAGlucose mass kroz183 mg/lLObzo29-288Bmp [facility] HospitalComment on above:Order Comment: No: Do not add to previous drawPerformed By: #### 26415 #### [facility] [address] [facility] [facility] [place] [address], USAPotassium molar conc3.3 mmol/LLow3.5-5.1The [facility] HospitalComment on above:Order Comment: No: Do not add to previous drawPerformed By: #### [id number] #### [facility] [address] [facility] [place] [address], USASodium molar bltr073 mmol/FAjsmsn462-996Wfa [facility] HospitalComment on above:Order Comment: No: Do not add to previous drawPerformed By: #### [id number] #### [facility] [address] [facility] [place] [address], USAUrea nitrogen mass conc10 mg/dLNormal7-25The [facility] HospitalComment on above:Order Comment: No: Do not add to previous drawPerformed By: #### 70975 #### [facility] [address] [facility] [place] [address], TSAILE HEALTH CENTERCBC W/DIFFon 45-70-5370RWI BASOPHILS0.0 10*3/uLNormal 0.0-0.2The [facility] HospitalComment on above:Order Comment: No: Do not add to previous drawPerformed By: #### [id number] #### [facility] [address] [facility] [place] [address], T[facility]ILE HEALTH CENTERABS IMM GRANS0.0 10*3/uLNormal0.0-0.2The [facility] HospitalComment on above:Order Comment: No: Do not add to previous drawPerformed By: #### 73093 #### [facility] [address] [facility] [place] [address], T[facility]ILE HEALTH CENTERABS NEUTROPHILS2.9 10*3/uLNormal1.6-7.6The [facility] HospitalComment on above:Order Comment: No: Do not add to previous drawPerformed By: #### 76388 #### [facility] [address] [facility] [place] [address], USABasophils #/vol (Bld)0.7 %Normal0.0-1.0The [facility] HospitalComment on above:Order Comment: No: Do not add to previous drawPerformed By: #### 57259 #### [facility] [address] [place] [address], USAEosinophils #/vol (Bld)0.1 10*3/uLNormal0.0-0.5The [facility] HospitalComment on above:Order Comment: No: Do not add to previous drawPerformed By: #### 54394 #### [facility] [address] [facility] [place] [address], USAEosinophils/100 WBC (Bld)2.9 %Normal0.0-6.0The [facility] HospitalComment on above:Order Comment: No: Do not add to previous drawPerformed By: #### 70215 #### [facility] [address] [facility] [place] [address], USAErythrocyte distribution width Ratio (RBC)14.2 %Normal 11.5-15.0The [facility] HospitalComment on above:Order Comment: No: Do not add to previous drawPerformed By: #### 79551 #### [facility] [address] [facility] [place] [address], USAHematocrit Volume Fraction (Bld)33.4 %Low36.0-45.0The [facility] HospitalComment on above:Order Comment: No: Do not add to previous drawPerformed By: #### 62687 #### [facility] [address] [facility] [address], USAHemoglobin mass conc (Bld)10.8 g/dLLow12.0-15.0The [facility] HospitalComment on above:Order Comment: No: Do not add to previous drawPerformed By: #### [id number] #### [facility] [address] [facility] [place] [address], USAIMMATURE GRANS0.2 %Normal0.0-1.0The [facility] HospitalComment on above:Order Comment: No: Do not add to previous draw Performed By: #### 58595 #### [facility] [address] [place] [address], USALymphocytes #/vol (Bld)1.1 10*3/uLLow1.2-4.0The [facility] HospitalComment on above:Order Comment: No: Do not add to previous drawPerformed By: #### [id number] #### [facility] [address] [place] [address], USALymphocytes/100 WBC (Bld)24.4 %Cbrthr80.0-45.0The [facility] HospitalComment on above:Order Comment: No: Do not add to previous drawPerformed By: #### [id number] #### [facility] [address] [place] [address], MUSCOGEEH Entitic mass (RBC)27.9 caEwhmat96.0-33.0The [facility] HospitalComment on above:Order Comment: No: Do not add to previous drawPerformed By: #### [id number] #### [facility] [address] [place] [address], MUSCOGEEHC mass conc (RBC)32.3 g/rFJqkxif82.0-35.0The [facility] HospitalComment on above:Order Comment: No: Do not add to previous drawPerformed By: #### [id number] #### [facility] [address] [facility] [place] [address], MUSCOGEEV Entitic volume (RBC)86.3 iLUemofp07.0-98.0The [facility] HospitalComment on above:Order Comment: No: Do not add to previous drawPerformed By: #### [id number] #### [facility] [address] [place] [address], USAMonocytes #/vol (Bld)0.3 10*3/uLNormal0.1-1.0The [facility] HospitalComment on above:Order Comment: No: Do not add to previous drawPerformed By: #### [id number] #### [facility] [address] [place] [address], USAMONOS7.0 %Normal5.0-12.0The [facility] HospitalComment on above:Order Comment: No: Do not add to previous drawPerformed By: #### 87492 #### [facility] [address] [place] [address], USANeutrophils/100 WBC (Bld)64.8 %Qzcthc00.0-72.0The [facility] HospitalComment on above:Order Comment: No: Do not add to previous drawPerformed By: #### [id number] #### [facility] [address] [place] [address], USANucleated RBC/100 WBC Ratio (Bld)0 %Normal0-0The [facility] HospitalComment on above:Order Comment: No: Do not add to previous drawPerformed By: #### [id number] #### [facility] [address] [place] [address], USAPLAT ZVZ048 10*3/eAIutlju377-966Scz [facility] HospitalComment on above:Order Comment: No: Do not add to previous draw Performed By: #### [id number] #### [facility] [address] [place] [address], USARBC #/vol (Bld)3.87 10*6/uLNormal3.80-5.00The [facility] HospitalComment on above:Order Comment: No: Do not add to previous drawPerformed By: #### [id number] #### [facility] [address] [place] [address], USAWBC #/vol (Bld)4.43 10*3/uLNormal4.00-10.60The [facility] HospitalComment on above:Order Comment: No: Do not add to previous drawPerformed By: #### [id number] #### [facility] [address] [place] [address], USACSF CELL COUNTon [id number] APPEARALL 4 TUBES: CLEAR AND COLORLESSNormalThe [facility] HospitalComment on above:Order Comment: No: Do not add to previous drawPerformed By: #### [id number] #### [facility] [address] [place] [address], USAFLUID QRATNW35.5 mlNormalThe [facility] HospitalComment on above:Order Comment: No: Do not add to previous drawPerformed By: #### [id number] #### [facility] [address] [place] [address], USALymphocytes/100 WBC (Bld)48 %High0-0The [facility] HospitalComment on above:Order Comment: No: Do not add to previous drawPerformed By: #### [id number] #### [facility] [address] [place] [address], VLNYXFETZELDS61 %NormalThe [facility] Comment on above:Order Comment: No: Do not add to previous drawPerformed By: #### [id number] #### [facility] [address] [place] [address], USAOTHER [id number] 68 WBC SEEN ON DIFF DONE ON CYTOSPIN PREP NormalThe [facility] HospitalComment on above:Order Comment: No: Do not add to previous drawResult Comment: Result changed by SADE on 05/26/2018 09:25. The previous value was TOTAL 68 WBC SEEN ON DIFF DONE ON CYTOSPIN PREP.Performed By: #### [id number] #### [facility] [address] [place] [address], USAOTHER R5Idgmqtc by Patrick Scott M.D.NormalThe [facility] HospitalComment on above:Order Comment: No: Do not add to previous drawResult Comment: Result changed by JANNACECILIA on 05/26/2018 09:25. The previous value was Preliminary report; verified report to follow.Performed By: #### [id number] #### [facility] [address] [place] [address], USARBC #/vol (Bld)2 ax7Kkez7-3Qol [facility] HospitalComment on above:Order Comment: No: Do not add to previous drawPerformed By: #### [id number] #### [facility] [address] [place] [address], USARBC % CRENATION0 %Normal0-0The [facility] HospitalComment on above:Order Comment: No: Do not add to previous drawPerformed By: #### [id number] #### [facility] [address] [place] [address], USASEGS9 %High0-0The [facility] Comment on above:Order Comment: No: Do not add to previous drawPerformed By: #### [id number] #### [facility] [address] [place] [address], USASITELUMBAR, TUBE [address] [place], [place] [address]Comment on above:Order Comment: No: Do not add to previous drawPerformed By: #### [id number] #### [facility] [address] [place] [address], USAWBC #/vol (Bld)2 aw8Hynx8-7Dnz [facility] HospitalComment on above:Order Comment: No: Do not add to previous drawPerformed By: #### [id number] #### [facility] [address] [place] [address], USAXANTHOCHROMIANONE UC Medical CenterComment on above:Order Comment: No: Do not add to previous draw Performed By: #### [id number] #### [facility] [address] [place] [address], USADILANTINon 11-03-6824LCKWVJAF (PHENYTOIN)7.7 mcg/mLLow 10.0-20.0The [facility] HospitalComment on above:Order Comment: No: Do not add to previous drawPerformed By: #### [id number] #### [facility] [address] [place] [address], USAEEG Reporton [id number] ReportName: Shabana Stallworth [facility] MR#: [id number] Age: 58 Physician: Colt Boggs M.D. Date: 05/23/2018-05/24/2018 Lab#: [id number], day 1 Date of : 1960 Patient Type: I NEURODIAGNOSTIC SERVICES REPORT [address] [place], [place] [address] Board of the [place] [employer] Accredited Laboratory HISTORY: This video/EEG [...] M.D. Ph.D Date Trans: 05/24/2018 10:34 P/mmo DN_JN:[id number] cc: Colt Boggs M.D. [address] [place] [id number] Valley Hospital ENCEPHALOPATHY, AUTOIMMUNE CSFon 79-38-6635LTGFVGWAKAZTBJ AUTOIMMUNE EVAL, CSF Results faxed to ordering physician and sent to [facility] HospitalComment on above:Performed By: #### [id number] #### [facility] [address] [facility] [place] [address], USAENCEPHALOPATHY, AUTOIMMUNE SERUMon 76-70-1904MPNBUKLAWWTXQX EVALUATIONResults faxed to ordering physician and sent to [facility] HospitalComment on above:Performed By: #### [id number] #### [facility] [address] [place] [address], USAFLUID SPECIFIC GRAVITYon 08-96-5004JYIZ GRAV1.005NoAdams County HospitalComment on above:Order Comment: No: Do not add to previous drawPerformed By: #### [id number] #### [facility] [address] [facility] [place] [address], USAFREE DILANTIN (UNBOUND)on 86-30-4445QDJL DILANTIN1.0 mcg/mL Normal1.0-2.0The [place] HospitalComment on above:Order Comment: No: Do not add to previous drawPerformed By: #### [id number] #### [facility] [address] [facility] [place] [address], USAGLUCOSE CSFon 34-62-1886MKUAVUY CSF52 mg/xAJwydie24-35Peq [facility] HospitalComment on above:Order Comment: No: Do not add to previous drawPerformed By: #### [id number] #### [facility] [address] [facility] [place] [address], USAKEPPRA ILon 29-16-3578SOVzgcdaNtt [facility] HospitalComment on above:Order Comment: No: Do not add to previous draw MFONYY84 ug/mLNormalThe [facility] HospitalComment on above: Order Comment: No: Do not add to previous drawResult Comment: A reference range for Keppra has [...] between serum concentrations and toxicity is not known.LUMBAR PUNCTURE DIAGNOSTICon 06-73-9971PKERLZ PUNCTURE DIAGNOSTICUnWadsworth-Rittman Hospital Department of Radiology [address] [place] [address] Patient Name: SHABANA STALLWORTH : 1960 Sex: F Age: Race: White Pt. Location: [place] [address] Patient Status: I Ordered Date: 05/25/2018 9:10:00 [...] risks are acceptable. Consent was obtained. Timeout: [place] protocol timeout verification performed. PROCEDURE: Lumbar puncture [...] detected. Electronically signed by:Kacie Arnold. Transcribed by: [email or web address], User Resident: Electronically Signed by: KACIE ARNOLD @ 05/25/2018 06:13 PMNormalOhioHealth Dublin Methodist HospitalComment on above:Order Comment: No: Do not add to previous drawMRI BRAIN TEMPORAL LOBE W WO CONTRASTon 84-78-9051XRD BRAIN TEMPORAL LOBE W WO CONTRASTUnWadsworth-Rittman Hospital Department of Radiology [address] [place] [phone] Patient Name: SHABANA STALLWORTH : 1960 Sex: F Age: Race: White Pt. 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 Transcribed by: [email or web address], User Resident: Electronically Signed by: KACIE ARNOLD @ 05/26/2018 04:08 PMNormalThe [facility] HospitalComment on above:Order Comment: No: Do not add to previous drawPROTHROMBIN TIMEon 79-08-1824VWF Coag RelTime (PPP)1.10 {INR}Normal0.91-1.16The [facility] HospitalComment on above: Order Comment: No: Do not add to previous drawResult Comment: ACCCP RECOMMENDED INR FOR WARFARIN THERAPY ------- CONDITION INR PROPHYLAXIS OF VENOUS THROMBOSIS 2-3 (HIGH-RISK SURGERY) TREATMENT OF VENOUS THROMBOSIS 2-3 TREATMENT OF PULMONARY EMBOLISM 2-3 PREVENTION OF SYSTEMIC EMBOLISM: 2-3 ACUTE MYOCARDIAL INFARCTION TISSUE HEART VALVES VALVULAR HEART DISEASE ATRIAL FIBRILLATION RECURRENT SYSTEMIC EMBOLISM MECHANICAL HEART VALVE 2.5-3.5 FROM: ORAL ANTICOAGULANTS. MECHANISM OF ACTION, CLINICAL EFFECTIVENESS, AND OPTIMAL THERAPEUTIC RANGE. CHEST 1995;108:231S-246S.Performed By: #### [id number] #### [facility] [address] [facility] [address], USAProthrombin time (PT) Coag time (PPP)14.2 fItxlgp10.3-14.8 The [facility] HospitalComment on above:Order Comment: No: Do not add to previous drawResult Comment: ALL RESULTS MUST BE INTERPRETED WITH RESPECT TO BLOOD DRAWING ARTIFACT OR DILUTION ERROR OF ANTICOAGULANT AT THE TIME OF SAMPLING.Performed By: #### [id number] #### [facility] [address] [facility] [place] [address], USATOTAL PROTEIN CSFon 61-10-4167XVEER PROTEIN CSF93.0 mg/dL High20.0-45.0The [facility] HospitalComment on above:Order Comment: No: Do not add to previous drawPerformed By: #### [id number] #### [facility] [address] [facility] [place] [address], USATPO ANTIBODY [id number] 69-31-0236OQS ANTIBODY<0.3Normal 0.0-9.0The [facility] HospitalComment on above:Order Comment: SPECIMEN IS CSF. PLEASE RUN WITH DISCLAIMER. SPOKE WITH [facility]IGANISSAREFERENCE NUMBER [id number] results should be interpreted with caution. Assay wasperformed at client's request on a sub-optimal specimen.Result Comment: Performed by [employer], [address] [facility],[place] [address] www.[employer] website, Jack Torres MD - Lab. DirectorVANCOMYCIN TIMEDon 05-25-2018 VANCOMYCIN TIMED12.6 mcg/mLNormalThe [facility] HospitalComment on above:Performed By: #### [id number] #### [facility] [address] [facility] [place] [address], USAVANCOMYCIN TIMED30.2 mcg/mLNormalThe [facility] HospitalComment on above:Order Comment: No: Do not add to previous draw Performed By: #### 39696 #### [facility] [address] [facility] [place] [address], USAVANCOMYCIN TROUGHon 47-76-1160WDEYSJMZGW TROU10.9 mcg/mL Normal5.0-20.0The [facility] HospitalComment on above:Performed By: #### [id number] #### [facility] [address] [place] [address], [facility]*AFB BLOOD CULTUREon 05-24-2018*AFB BLOOD CULTUREClinical Report: (V) Specimen: BLOOD CULTURE Collected: 05/24/2018 12:48 Status: Pending Last Updated: 05/26/2018 15:38 CULT RES (Prelim) Culture In Progress No Growth To DateOhio Valley HospitalComment on above:Performed By: #### [id number] #### [facility] [address] [place] [address], [facility]*BLOOD CULTUREon 73-02-7957Njjdabvx identified Cx Nom (Bld) Clinical Report: (D) Specimen: BLOOD CULTURE Collected: 05/24/2018 14:47 Status: Final Last Updated: 05/30/2018 06:16 CULT RES (Final) No Growth Day 5Ohio [facility] HospitalComment on above: Performed By: #### [id number] #### [facility] [address] [place] [id number], USABacteria identified Cx Nom (Bld)Clinical Report: (D) Specimen: BLOOD CULTURE Collected: 05/24/2018 12:48 Status: Final Last Updated: 05/30/2018 06:16 CULT RES (Final) No Growth Day 5Ohio [facility] HospitalComment on above: Performed By: #### 15083 #### [facility] [address] [place] [address], [facility]*FUNGAL BLOOD CULTUREon 05-24-2018*FUNGAL BLOOD CULTURE Clinical Report: (D) Specimen: BLOOD CULTURE Collected: 05/24/2018 12:48 Status: Final Last Updated: 07/06/2018 11:17 (1) No: Do not add to previous draw CULT RES (Final) No growth after 42 days of incubationNoAdams County HospitalComment on above:Order Comment: No: Do not add to previous drawPerformed By: #### 74587 #### [facility] [address] [place] [address], USAANAon 59-60-2989Fvoreza Ab IF titer (S)<1:40Normal <1:40,1:40The [facility] HospitalComment on above:Order Comment: No: Do not add to previous drawPerformed By: #### 59891 #### [facility] [address] [place] [address], USAANCA IGG WITH REFLEX [id number] 14-74-7786TNIO<1:20Normal <1:20The [facility] HospitalComment on above:Order Comment: No: Do not add to previous drawResult Comment: The ANCA IFA is <1:20; therefore, [...] collagen vascular disease or arthritis. Performed by [employer], [address] [place] [address] www.[employer] website, Jack Torres MD - Lab. DirectorANTI DNAon 32-38-3040GBRL DNA <1:10Normal<1:10The [facility] HospitalComment on above:Order Comment: No: Do not add to previous drawPerformed By: #### [id number] #### [facility] [address] [place] [address], USAANTI-BETA 2 GLYCOPROTEIN 1on 59-31-9136IZVW B2GP1 IGG0.0 g unitsNormal0.0-19.9The [facility] HospitalComment on above:Order Comment: No: Do not add to previous drawPerformed By: #### [id number] #### [facility] [address] [place] [address], USAANTI B2GP1 IGM3.6 m unitsNormal0.0-19.9The [facility] HospitalComment on above:Order Comment: No: Do not add to previous drawPerformed By: #### [id number] #### [facility] [address] [facility] [facility] [place] [address], USAANTICARDIOLIPIN ANTIBODYon 80-25-9847EBJQEITKWBS IGG7.3 GPL Normal0.0-22.9The [facility] HospitalComment on above:Order Comment: No: Do not add to previous drawPerformed By: #### 71741 #### [facility] [address] [facility] [place] [address], USACARDIOLIPIN IGM5.5 MPLNormal0.0-10.9The [facility] HospitalComment on above:Order Comment: No: Do not add to previous drawPerformed By: #### 32153 #### [facility] [address] [facility] [place] [address], USAARTERIAL BLOOD GAS WITH ICAon 84-73-1402OSMB EXCESS-3 mmol/LLow-2-2The [facility] HospitalComment on above:Performed By: #### 31664 #### [facility] [address] [facility] [place] [address], USADELIVERY SYSTEMSMVNoAdams County HospitalComment on above:Performed By: #### 31876 #### [facility] [address] [place] [address], FFSWKM244 %Iyfcwo07-235Skt [facility] Comment on above:Performed By: #### 79802 #### [facility] [address] [place] [address], USAHCO3 molar conc (Bld)22 mmol/CKjo18-68Mbb [facility] HospitalComment on above:Performed By: #### 61278 #### [facility] [address] [facility] [place] [address], USAIONIZED CALCIUM1.14 mmol/LNormal1.13-1.32The [facility] HospitalComment on above:Performed By: #### 29697 #### [facility] [address] [facility] [place] [address], USAMIN VOLUME5.8NoAdams County Hospital Comment on above:Performed By: #### 24074 #### [facility] [address] [facility] [place] [address], USAMODALITYACOhio Valley Hospital Comment on above:Performed By: #### [id number] #### [facility] [address] [facility] [place] [address], USAOxygen ppres (Bld)106 mm[Hg]Critically lteu95-489Neo [facility] HospitalComment on above:Performed By: #### 15193 #### [facility] [address] [facility] [place] [address], USAOxygen saturation in Blood95.3 %Nnfgmk18.0-97.0The [facility] HospitalComment on above:Performed By: #### 47255 #### [facility] [address] [place] [address], WOZYKH289 gtDtVwfadv82-71Zsx [facility] HospitalComment on above:Performed By: #### 21768 #### [facility] [address] [place] [address], USAPEEP8.0 NCE56McunheOgmAdams County Hospital Comment on above:Performed By: #### 95654 #### [facility] [address] [place] [address], USAPF TYVWE048 jvJlVrsxcn90-837Jsq [facility] HospitalComment on above:Performed By: #### 30499 #### [facility] [address] [place] [address], USApH (Bld)7.38 [pH]Normal7.35-7.45The [facility] HospitalComment on above:Performed By: #### [id number] #### [facility] [address] [place] [address], USATIDAL VOLUME (VT) MQ323HlpajaBfmMain Campus Medical CenterComment on above:Performed By: #### 28388 #### [facility] [address] [place] [address], USABASIC METABOLIC PANELon 98-25-7954Wwhjxrj mass conc8.0 mg/dLLow8.6-10.3The [facility] HospitalComment on above:Order Comment: No: Do not add to previous drawPerformed By: #### 16554 #### [facility] [address] [place] [address], USAChloride molar swkh519 mmol/SRiqlnx91-003Tya [facility] HospitalComment on above:Order Comment: No: Do not add to previous drawPerformed By: #### 46078 #### [facility] [address] [place] [address], USACO2 molar conc23 mmol/GXgnxmk74-33Sat [facility] HospitalComment on above:Order Comment: No: Do not add to previous draw Performed By: #### 01993 #### [facility] [address] [place] [address], USACreatinine mass conc0.99 mg/dLNormal0.60-1.20The [facility] HospitalComment on above:Order Comment: No: Do not add to previous drawPerformed By: #### 23310 #### [facility] [address] [place] [address], USAGFR/1.73 sq M predicted among blacks MDRD vol rate/area (S/P/Bld)mL/min/{1.73_m2}Normal>60The [facility] HospitalComment on above:Order Comment: No: Do not add to previous drawPerformed By: #### 44153 #### [facility] [address] [place] [address], USAGFR/1.73 sq M predicted among non-blacks MDRD vol rate/area (S/P/Bld)58 ml/min/1.73sq mAbnormal>60The [facility] Comment on above:Order Comment: No: Do not add to previous drawPerformed By: #### 59634 #### [facility] [address] [place] [address], USAGlucose mass urwy209 mg/rHZxwc40-616Ynh [facility] HospitalComment on above:Order Comment: No: Do not add to previous drawPerformed By: #### 79942 #### [facility] [address] [place] [address], USAPotassium molar conc3.8 mmol/LNormal3.5-5.1The [facility] HospitalComment on above:Order Comment: No: Do not add to previous drawPerformed By: #### 97943 #### [facility] [address] [place] [address], USASodium molar bfbw750 mmol/SRpz715-049Tyo [facility] HospitalComment on above:Order Comment: No: Do not add to previous drawPerformed By: #### 86512 #### [facility] [address] [place] [address], USAUrea nitrogen mass conc15 mg/dLNormal7-25The [facility] HospitalComment on above:Order Comment: No: Do not add to previous drawPerformed By: #### 32461 #### [facility] [address] [place] [address], [facility] CENTERCBC COMPLETE BLOOD COUNTon 74-42-1691Buxbhktxrib distribution width Ratio (RBC)13.7 %Uzarrw08.5-15.0The [facility] HospitalComment on above:Order Comment: No: Do not add to previous draw Performed By: #### [id number] #### [facility] [address] [place] [address], USAHematocrit Volume Fraction (Bld)36.6 %Weqaye60.0-45.0The [facility] HospitalComment on above:Order Comment: No: Do not add to previous drawPerformed By: #### 70601 #### [facility] [address] [facility] [facility] [place] [address], [facility] CENTERHemoglobin mass conc (Bld)11.8 g/dLLow12.0-15.0The [facility] HospitalComment on above:Order Comment: No: Do not add to previous drawPerformed By: #### 70766 #### [facility] [address] [facility] [facility] [place] [address], [facility] Entitic mass (RBC)27.6 pjOguzic75.0-33.0The [facility] HospitalComment on above:Order Comment: No: Do not add to previous drawPerformed By: #### 99334 #### [facility] [address] [place] [address], [facility] CENTERMCHC mass conc (RBC)32.2 g/kULzyhfe38.0-35.0The [facility] HospitalComment on above:Order Comment: No: Do not add to previous drawPerformed By: #### 06634 #### [facility] [address] [place] [address], [facility]ENTERMCV Entitic volume (RBC)85.7 fIRwgqot27.0-98.0The [facility] HospitalComment on above:Order Comment: No: Do not add to previous drawPerformed By: #### [id number] #### [facility] [address] [place] [address], USANucleated RBC/100 WBC Ratio (Bld)0 %Normal0-0The [facility] HospitalComment on above:Order Comment: No: Do not add to previous drawPerformed By: #### 45269 #### [facility] [address] [place] [address], USAPLAT MTX144 10*3/cBKbkoly647-693Dey [facility] HospitalComment on above:Order Comment: No: Do not add to previous draw Performed By: #### 57936 #### [facility] [address] [place] [address], [facility]ENTERRBC #/vol (Bld)4.27 10*6/uLNormal3.80-5.00The [facility] HospitalComment on above:Order Comment: No: Do not add to previous drawPerformed By: #### 25151 #### [facility] [address] [place] [address], [facility] CENTERWBC #/vol (Bld)8.94 10*3/uLNormal4.00-10.60The [facility] HospitalComment on above:Order Comment: No: Do not add to previous drawPerformed By: #### 05328 #### [facility] [address] [place] [address], USACOMPLEMENT 3on 76-46-1360LUWVZQSWGW 3134 mg/kRRovlsj32-177 The [facility] HospitalComment on above:Order Comment: No: Do not add to previous drawPerformed By: #### 98298 #### [facility] [address] [place] [address], USACOMPLEMENT 4on 76-79-0511YTDWSTRETA 428 mg/lLTpoles98-16Rtk [facility] HospitalComment on above:Order Comment: No: Do not add to previous drawPerformed By: #### 56710 #### [facility] [address] [place] [address], USACRYOGLOBULIN ILon 60-19-0240HBISOTEFBBSA5 mg/dLNormal0-10 [facility] HospitalCYCLIC CITRULLINATED PEPTIDE [place] [address]qz 26-86-8082LGJIQQ CIT PEP6 UnitsNormal0-19The [facility] Comment on above:Order Comment: No: Do not add to previous drawResult Comment: INTERPRETIVE INFORMATION: Cyclic Citrullinated Peptide Antibody, IgG 19 [...] be monitored and testing repeated. Performed by [employer], [address] [place] [address] www.[employer] website, Jack Torres MD - Lab. DirectorDRVVT SCREENon 10-42-5207XYCGE SCREEN1.04 RATIONormal0.00-1.20The [facility] HospitalComment on above:Order Comment: No: Do not add to previous drawPerformed By: #### 55486 #### [facility] [address] [place] [address], USAEEG Reporton 56-40-1772AJP ReportName: Shabana Stallworth [facility] MR#: [id number] Age: 58 Physician: Colt Boggs M.D. Date: 05/23/2018 Lab#: [id number] Date of : 1960 Patient Type: I NEURODIAGNOSTIC SERVICES REPORT [place], [place] [address] Board of the [place] [employer] Accredited Laboratory HISTORY: This EEG [...] Ph.D Date Trans: 05/24/2018 05:02 Dipak/luis e DN_JN:[id number] cc: Colt Boggs M.D. [address] [place] [phone] Valley HospitalFREE DILANTIN (UNBOUND)on 35-24-5788MTBT DILANTIN1.2 mcg/mLNormal1.0-2.0The [facility] HospitalComment on above:Order Comment: No: Do not add to previous draw2x could not getPerformed By: #### 67786 #### [facility] [address] [place] [address], USALUPUS ANTICOAGULANTon 22-13-6812LHGQD ANTICOAGULNegative NormalNEGATIVEThe [facility] HospitalComment on above:Order Comment: No: Do not add to previous drawResult Comment: BY HEXAGONAL PHASE PHOSPHOLIPID METHODOLOGYPerformed By: #### 31339 #### [facility] [address] [place] [address], USAMAGNESIUM BLOODon 96-50-0551Canuyaaid mass conc1.7 mg/dLLow 1.9-2.7The [facility] HospitalComment on above:Order Comment: No: Do not add to previous drawPerformed By: #### 42391 #### [facility] [address] [place] [address], USAPHOSPHORUS BLOODon 54-23-1712Xzqexfvqm mass conc3.5 mg/dL Normal2.5-5.0The [facility] HospitalComment on above:Order Comment: No: Do not add to previous drawPerformed By: #### 17665 #### [facility] [address] [place] [address], USAPROCALCITONINon 52-40-0262Sqymnrh mass conc0.18 ng/mLHigh 0.00-0.10The [facility] HospitalComment on above:Order Comment: No: Do not add to previous drawResult Comment: Suspected Lower Respiratory Tract Infection: 0.1-0.25ng/mL- Low likelihood for bacterial infection;Antibiotics discouraged.* >0.25ng/mL- Increased likelihood bacterial infection;Antibiotics encouraged. Suspected Sepsis: Strongly consider initiating antibiotics in all unstable patients. 0.1-0.5ng/mL- Low likelihood for sepsis; Antibiotics discouraged.* >0.5ng/mL- Increased likelihood sepsis; Antibiotics encouraged. >2.0ng/mL- High risk of sepsis/septic shock; Antibiotics strongly encouraged. *Recommend retesting PCT within 6-12hours if clinically indicated and initial PCT<0.5ng/mLPerformed By: #### 40534 #### [facility] [address] [facility] [place] [address], USAPTT-LAon 26-23-1801dZZN Coag time (Bld)37.3 sNormal 31.0-43.0The [facility] HospitalComment on above:Order Comment: No: Do not add to previous drawPerformed By: #### 33225 #### [facility] [address] [place] [address], USARHEUMATOID FACTOR SERUMon 10-79-0421WT<76Akwjfl8-47Ujc [facility] HospitalComment on above:Order Comment: No: Do not add to previous drawPerformed By: #### 20255 #### [facility] [address] [place] [address], USASJOGRENS ANTIBODIESon 97-62-6223UX-ANegativeNormal NEG,NEGATIVE,NegThe [facility] HospitalComment on above:Order Comment: No: Do not add to previous drawPerformed By: #### 67982 #### [facility] [address] [place] [address], USASS-BNegativeNormalNEG,NEGATIVE,NegThe [facility] HospitalComment on above:Order Comment: No: Do not add to previous draw Performed By: #### 54013 #### [facility] [address] [place] [address], USASMOOTH MUSCLE ABon 80-90-5856NGIVZT MUSC AB1:20AbnormalNONE DETECTEDThe [facility] HospitalComment on above:Order Comment: No: Do not add to previous drawResult Comment: NONE DETECTED: LESS THAN 1:20 WEAKLY POSITIVE: 1:20 - 1:40 SUGGESTIVE OF CHRONIC HEPATITIS: 1:80 OR GREATER NOTE: FOR WEAKLY POSITIVE RESULTS, TITER MAY BE PRESENT IN ACUTE VIRAL HEPATITIS, INFECTIOUS MONONUCLEOSIS OR MALIGNANCY.Performed By: #### 11221 #### [facility] [address] [place] [address], USAURINALYSIS REFLEXon 46-10-1905Dtpquhirdw Nom (U)CLEARNormal CLEARThe [facility] HospitalComment on above:Order Comment: No: Do not add to previous drawCriteria for reflexing a culture was not met. Please call the lab [id number] within 24 hours of collection time if culture is needed Performed By: #### 25703 #### [facility] [address] [place] [address], USABilirubin mass concNegativeNormalNEGATIVEThe [facility] HospitalComment on above:Order Comment: No: Do not add to previous drawCriteria for reflexing a culture was not met. Please call the lab [id number] within 24 hours of collection time if culture is neededPerformed By: #### 16190 #### [facility] [address] [place] [address], USABLOODMODERATEAbnormalNEGATIVEThe [facility] HospitalComment on above:Order Comment: No: Do not add to previous drawCriteria for reflexing a culture was not met. Please call the lab [id number] within 24 hours of collection time if culture is neededPerformed By: #### 88785 #### [facility] [address] [place] [address], USAColor Nom (U)YELLOWNormalYELLOWThe [facility] HospitalComment on above:Order Comment: No: Do not add to previous drawCriteria for reflexing a culture was not met. Please call the lab [id number] within 24 hours of collection time if culture is neededPerformed By: #### 17805 #### [facility] [address] [place] [address], USAEPISOCCNormalFEW,OCC,NONE SEENThe [facility] HospitalComment on above:Order Comment: No: Do not add to previous drawCriteria for reflexing a culture was not met. Please call the lab [id number] within 24 hours of collection time if culture is neededPerformed By: #### 79826 #### [facility] [address] [place] [address], USAGlucose mass concNegativeNormalNEGATIVEThe [facility] HospitalComment on above:Order Comment: No: Do not add to previous drawCriteria for reflexing a culture was not met. Please call the lab [id number] within 24 hours of collection time if culture is neededPerformed By: #### 07696 #### [facility] [address] [place] [address], USAKETONENegativeNormalNEGATIVEThe [facility] HospitalComment on above:Order Comment: No: Do not add to previous drawCriteria for reflexing a culture was not met. Please call the lab [id number] within 24 hours of collection time if culture is neededPerformed By: #### 34984 #### [facility] [address] [place] [address], USALEUK ESTERNegativeNormalNEGATIVEThe [facility] HospitalComment on above:Order Comment: No: Do not add to previous drawCriteria for reflexing a culture was not met. Please call the lab [id number] within 24 hours of collection time if culture is neededPerformed By: #### 68964 #### [facility] [address] [place] [address], USAMUCUS THREADSOCCAbnormalNONE SEENThe [facility] HospitalComment on above:Order Comment: No: Do not add to previous drawCriteria for reflexing a culture was not met. Please call the lab [id number] within 24 hours of collection time if culture is neededPerformed By: #### 59702 #### [facility] [address] [facility] [place] [address], USANitrite Ql (U)NegativeNormalNEGATIVEThe [facility] HospitalComment on above:Order Comment: No: Do not add to previous drawCriteria for reflexing a culture was not met. Please call the lab [id number] within 24 hours of collection time if culture is neededPerformed By: #### 48305 #### [facility] [address] [facility] [place] [address], USApH (Bld)5.5Tyinyk9.0-8.0The [facility] HospitalComment on above:Order Comment: No: Do not add to previous drawCriteria for reflexing a culture was not met. Please call the lab [id number] within 24 hours of collection time if culture is neededPerformed By: #### 24050 #### [facility] [address] [place] [address], USAProtein mass conc (U)NegativeNormalNEGATIVEThe [facility] HospitalComment on above:Order Comment: No: Do not add to previous drawCriteria for reflexing a culture was not met. Please call the lab [id number] within 24 hours of collection time if culture is neededPerformed By: #### 71061 #### [facility] [address] [facility] [place] [address], [facility] CENTERRBC #/vol (U)21-50AbnormalNONE SEENThe [facility] HospitalComment on above:Order Comment: No: Do not add to previous drawCriteria for reflexing a culture was not met. Please call the lab [id number] within 24 hours of collection time if culture is neededPerformed By: #### 74415 #### [facility] [address] [facility] [place] [address], USASPEC GRAV1.876Qzkc8.015-1.020The [facility] HospitalComment on above:Order Comment: No: Do not add to previous drawCriteria for reflexing a culture was not met. Please call the lab [id number] within 24 hours of collection time if culture is neededPerformed By: #### 12753 #### [facility] [address] [facility] [place] [address], USAURIC ACID CRYSTALOCCAbnormalNONE SEENThe [facility] HospitalComment on above:Order Comment: No: Do not add to previous drawCriteria for reflexing a culture was not met. Please call the lab [id number] within 24 hours of collection time if culture is neededPerformed By: #### 48638 #### [facility] [address] [facility] [place] [address], [facility] CENTERWBC UA3-5AbnormalNONE SEENThe [facility] HospitalComment on above:Order Comment: No: Do not add to previous drawCriteria for reflexing a culture was not met. Please call the lab [id number] within 24 hours of collection time if culture is neededPerformed By: #### 99994 #### [facility] [address] [facility] [place] [address], [facility]*RAPID FLU AANDB BY MOLECULARon 05-23-2018*RAPID FLU AANDB BY MOLECULARClinical Report: (D) Specimen: NASAL SWAB Collected: 05/23/2018 11:11 Status: Final Last Updated: 05/23/2018 11:48 FLUA RNA (Final) Negative FLUB RNA (Final) NegativeOhio Valley HospitalComment on above:Performed By: #### 91549 #### [facility] [address] [place] [address], USAAMMONIA BLOODon 41-91-9835Hddusmk mass conc (P)39 umol/L Krzqjq15-34Abz [facility] HospitalComment on above:Order Comment: No: Do not add to previous drawPerformed By: #### 74864 #### [facility] [address] [place] [address], USAARTERIAL BLOOD GAS WITH ICAon 52-98-5737SGVL EXCESS-1 mmol/VMsnyno-5-3Ygb [facility] HospitalComment on above: Performed By: #### 42424 #### [facility] [address] [place] [address], USADELIVERY SYSTEMSMVNoAdams County HospitalComment on above:Performed By: #### 89902 #### [facility] [address] [place] [address], RJGVDO071 %Lrtfse87-280Zqk [facility] Comment on above:Performed By: #### 30777 #### [facility] [address] [place] [address], USAHCO3 molar conc (Bld)22 mmol/KEte27-20Asn [facility] HospitalComment on above:Performed By: #### 09551 #### [facility] [address] [place] [address], USAIONIZED CALCIUM1.12 mmol/LLow1.13-1.32The [facility] HospitalComment on above:Performed By: #### 29525 #### [facility] [address] [place] [address], USAMIN LLSLJR10.2NormalThe [facility] Comment on above:Performed By: #### 63219 #### [facility] [address] [place] [address], USAMODALITYA/CNormalThe [facility] Comment on above:Performed By: #### 15291 #### [facility] [address] [place] [address], USAOxygen ppres (Bld)131 mm[Hg]Critically eobc13-932Xyb [facility] HospitalComment on above:Performed By: #### 21299 #### [facility] [address] [place] [address], USAOxygen saturation in Blood96.0 %Qpsxmu13.0-97.0The [facility] HospitalComment on above:Performed By: #### 72036 #### [facility] [address] [place] [address], WIUIAG921 acOgTxp00-45Efr [facility] Comment on above:Performed By: #### 02648 #### [facility] [address] [place] [address], USAPEEP8.0 UZD57XsqgieFjbMain Campus Medical Center Comment on above:Performed By: #### 00796 #### [facility] [address] [place] [address], USAPF JCRRJ119 yhMsWfyaas21-440Ywl [facility] HospitalComment on above:Performed By: #### 93316 #### [facility] [address] [place] [address], USApH (Bld)7.48 [pH]High7.35-7.45The [facility] HospitalComment on above:Performed By: #### 81675 #### [facility] [address] [place] [address], USATIDAL VOLUME (VT) SD643FqwlqtBjzMain Campus Medical CenterComment on above:Performed By: #### 21788 #### [facility] [address] [facility] [place] [address], USABNP (B-TYPE NATRIURETIC PEPTIDE)on 90-57-1876Mrcyrdabdwq peptide B mass conc (Bld)39 pg/mLNormal0-100The [facility] HospitalComment on above:Order Comment: No: Do not add to previous drawResult Comment: Given the appropriate clinical setting a BNP result of >100 pg/mL indicates congestive heart failure.Performed By: #### 68904 #### [facility] [address] [facility] [place] [address], [facility] CENTERCBC W/DIFFon 56-98-9591RDW BASOPHILS0.0 10*3/uLNormal 0.0-0.2The [facility] HospitalComment on above:Order Comment: No: Do not add to previous drawPerformed By: #### 74019 #### [facility] [address] [facility] [place] [address], USAABS IMM GRANS0.0 10*3/uLNormal0.0-0.2The [facility] HospitalComment on above:Order Comment: No: Do not add to previous drawPerformed By: #### 24294 #### [facility] [address] [facility] [place] [address], [facility]ALTH CENTERABS NEUTROPHILS5.0 10*3/uLNormal1.6-7.6The [facility] HospitalComment on above:Order Comment: No: Do not add to previous drawPerformed By: #### 42864 #### [facility] [address] [facility] [place] [address], USABasophils #/vol (Bld)0.4 %Normal0.0-1.0The [facility] HospitalComment on above:Order Comment: No: Do not add to previous drawPerformed By: #### 03693 #### [facility] [address] [facility] [address], USAEosinophils #/vol (Bld)0.0 10*3/uLNormal0.0-0.5The [facility] HospitalComment on above:Order Comment: No: Do not add to previous drawPerformed By: #### 51986 #### [facility] [address] [place] [address], USAEosinophils/100 WBC (Bld)0.0 %Normal0.0-6.0The [facility] HospitalComment on above:Order Comment: No: Do not add to previous drawPerformed By: #### 27714 #### [facility] [address] [facility] [place] [address], USAErythrocyte distribution width Ratio (RBC)13.2 %Normal 11.5-15.0The [facility] HospitalComment on above:Order Comment: No: Do not add to previous drawPerformed By: #### 56814 #### [facility] [address] [place] [address], USAHematocrit Volume Fraction (Bld)43.7 %Ipuptu92.0-45.0The [facility] HospitalComment on above:Order Comment: No: Do not add to previous drawPerformed By: #### 03984 #### [facility] [address] [facility] [place] [address], [facility] HEALTH CENTERHemoglobin mass conc (Bld)14.6 g/nGMfkqjb20.0-15.0The [facility] HospitalComment on above:Order Comment: No: Do not add to previous drawPerformed By: #### 49648 #### [facility] [address] [place] [address], USAIMMATURE GRANS0.3 %Normal0.0-1.0The [facility] HospitalComment on above:Order Comment: No: Do not add to previous draw Performed By: #### 52920 #### [facility] [address] [place] [address], USALymphocytes #/vol (Bld)1.7 10*3/uLNormal1.2-4.0The [facility] HospitalComment on above:Order Comment: No: Do not add to previous drawPerformed By: #### 44579 #### [facility] [address] [place] [address], [facility]ALTH CENTERLymphocytes/100 WBC (Bld)24.8 %Yqzmcc22.0-45.0The [facility] HospitalComment on above:Order Comment: No: Do not add to previous drawPerformed By: #### 83135 #### [facility] [address] [facility] [place] [address], [facility] Entitic mass (RBC)27.7 qiBbvwbo84.0-33.0The [facility] HospitalComment on above:Order Comment: No: Do not add to previous drawPerformed By: #### 80083 #### [facility] [address] [place] [address], MUSCOGEEHC mass conc (RBC)33.4 g/eXVhhdwi92.0-35.0The [facility] HospitalComment on above:Order Comment: No: Do not add to previous drawPerformed By: #### 99980 #### [facility] [address] [facility] [place] [address], MUSCOGEEV Entitic volume (RBC)82.9 lDQgqkae37.0-98.0The [facility] HospitalComment on above:Order Comment: No: Do not add to previous drawPerformed By: #### 72855 #### [facility] [address] [place] [address], USAMonocytes #/vol (Bld)0.3 10*3/uLNormal0.1-1.0The [facility] HospitalComment on above:Order Comment: No: Do not add to previous drawPerformed By: #### 51235 #### [facility] [address] [facility] [place] [address], USAMONOS3.6 %Low5.0-12.0The [facility] HospitalComment on above:Order Comment: No: Do not add to previous drawPerformed By: #### 22622 #### [facility] [address] [place] [address], USANeutrophils/100 WBC (Bld)70.9 %Szvawv49.0-72.0The [facility] HospitalComment on above:Order Comment: No: Do not add to previous drawPerformed By: #### 56103 #### [facility] [address] [place] [address], USANucleated RBC/100 WBC Ratio (Bld)0 %Normal0-0The [facility] HospitalComment on above:Order Comment: No: Do not add to previous drawPerformed By: #### 59138 #### [facility] [address] [place] [address], USAPLAT LLW713 10*3/nWPsrchc248-968Mgu [facility] HospitalComment on above:Order Comment: No: Do not add to previous draw Performed By: #### 60008 #### [facility] [address] [place] [address], USARBC #/vol (Bld)5.27 10*6/uLHigh3.80-5.00The [facility] HospitalComment on above:Order Comment: No: Do not add to previous drawPerformed By: #### 98782 #### [facility] [address] [place] [address], USAWBC #/vol (Bld)7.03 10*3/uLNormal4.00-10.60The [facility] HospitalComment on above:Order Comment: No: Do not add to previous drawPerformed By: #### 50819 #### [facility] [address] [place] [address], USACOMP METABOLIC PANELon 31-21-6748Nivsolm mass conc4.1 g/dL Normal3.5-5.7The [facility] HospitalComment on above:Order Comment: No: Do not add to previous drawPerformed By: #### 45802, 98797, 90246, 05566 #### [facility] [address] [place] [address], USAALKALINE FHEOHA04 IU/VLoivfw34-363Vjb [facility] HospitalComment on above:Order Comment: No: Do not add to previous draw Performed By: #### 83267, 75804, 00358, 51358 #### [facility] [address] [place] [address], USAALT enzyme act/vol43 U/LNormal7-52The [facility] HospitalComment on above:Order Comment: No: Do not add to previous draw Performed By: #### 24674, 43827, 07869, 71680 #### [facility] [address] [place] [address], USAAST enzyme act/vol30 U/AMdxvjt90-18Zfs [facility] HospitalComment on above:Order Comment: No: Do not add to previous draw Performed By: #### 01535, 89230, 50635, 53082 #### [facility] [address] [place] [address], USABilirubin mass conc0.5 mg/dLNormal0.3-1.0The [facility] HospitalComment on above:Order Comment: No: Do not add to previous drawPerformed By: #### 39420, 38930, 51316, 95443 #### [facility] [address] [place] [address], USACalcium mass conc9.4 mg/dLNormal8.6-10.3The [facility] HospitalComment on above:Order Comment: No: Do not add to previous drawPerformed By: #### 38318, 47720, 02133, 90610 #### [facility] [address] [place] [address], USAChloride molar conc99 mmol/GKatogz82-400Ule [facility] HospitalComment on above:Order Comment: No: Do not add to previous drawPerformed By: #### 83448, 64515, 90320, 20769 #### [facility] [address] [place] [address], USACO2 molar conc24 mmol/UGslclu64-49Vke [facility] HospitalComment on above:Order Comment: No: Do not add to previous draw Performed By: #### 26902, 15683, 96106, 85377 #### [facility] [address] [place] [address], USACreatinine mass conc0.97 mg/dLNormal0.60-1.20The [facility] HospitalComment on above:Order Comment: No: Do not add to previous drawPerformed By: #### 56473, 17076, 89927, 01408 #### [facility] [address] [place] [address], USAGFR/1.73 sq M predicted among blacks MDRD vol rate/area (S/P/Bld)mL/min/{1.73_m2}Normal>60The [facility] HospitalComment on above:Order Comment: No: Do not add to previous drawPerformed By: #### 90670, 58615, 75233, 69900 #### [facility] [address] [place] [address], USAGFR/1.73 sq M predicted among non-blacks MDRD vol rate/area (S/P/Bld)59 ml/min/1.73sq mAbnormal>60The [facility] Comment on above:Order Comment: No: Do not add to previous drawPerformed By: #### 93569, 50616, 38068, 26136 #### [facility] [address] [place] [address], USAGlucose mass ejsx333 mg/sKSvdo01-215Ydc [facility] HospitalComment on above:Order Comment: No: Do not add to previous drawPerformed By: #### 92760, 66759, 71525, 95372 #### [facility] [address] [place] [address], USAPotassium molar conc4.0 mmol/LNormal3.5-5.1The [facility] HospitalComment on above:Order Comment: No: Do not add to previous drawPerformed By: #### 43307, 95841, 51488, 96987 #### [facility] [address] [place] [address], USAProtein mass conc7.7 g/dLNormal6.0-8.3The [facility] HospitalComment on above:Order Comment: No: Do not add to previous drawPerformed By: #### 85180, 03633, 11630, 16280 #### [facility] [address] [place] [address], USASodium molar qoav071 mmol/ORtw338-973Tct [facility] HospitalComment on above:Order Comment: No: Do not add to previous drawPerformed By: #### 23644, 68342, 32528, 98905 #### [facility] [address] [place] [address], USAUrea nitrogen mass conc18 mg/dLNormal7-25The [facility] HospitalComment on above:Order Comment: No: Do not add to previous drawPerformed By: #### 47295, 43179, 76288, 76551 #### [facility] [address] [place] [address], USACPKon 11-76-6551VM enzyme act/vol47 U/HJtaulc47-227Erv [facility] HospitalComment on above:Performed By: #### 04699, 96156, 02878, 44441 #### [facility] [address] [place] [address], USACT BRAIN W WO CONTRASTon 20-86-3090JH BRAIN W WO CONTRAST [facility] Department of Radiology [address] [place] [address] Patient Name: SHABANA STALLWORTH : 1960 Sex: F Age: Race: White Pt. Location: [place] [address] Patient Status: I Ordered Date: 05/23/2018 4:25:00 [...] findings. Electronically signed by:Jewel Barnett. Transcribed by: [id number], User Resident: STORMY ACEVEDO Electronically Signed by: JEWEL BARNETT @ 05/24/2018 07:57 AM I personally read this/these film(s) with this residentOhio Valley HospitalComment on above:Order Comment: R/O Seizure DisorderHistory and Physicalon 57-73-9171Zuijlvt and PhysicalMR#: [id number] [facility] Pt. Name: Shabana Stallworth Admitted: 05/23/2018 Date of : 1960 Attending Physician: Oral Ortiz MD Room #: VALE [id number] Discharge Date: HISTORY AND PHYSICAL CHIEF COMPLAINT: [...] 5.3, she was changed back from the Dexter Thyroid to Synthroid, which she did the [...] Ortiz MD Date Trans: 05/23/2018 12:23 P/mmo DN_JN:[id number] [facility] HospitalLACTATE BLOODon 48-49-5345Skuruzu molar conc2.1 mmol/LNormal0.5-2.2The [facility] HospitalComment on above:Order Comment: No: Do not add to previous draw Performed By: #### 88688 #### [facility] [address]Operative Reporton 15-23-5023Prvrmtiho ReportMR#: [id number] [facility] Pt. Name: Shabana Stallworth Room #: VALE [id number] Discharge Date: Birthdate: 1960 OPERATIVE REPORT DATE [...] Dunlap MD Date Trans: 05/23/2018 09:22 P/mmo DN_JN:[id number] cc: Colt Boggs M.D. [address] [place] [address] [facility] [address]VndatnFcyOhio Valley HospitalPOC GLUCOSE LABon 34-09-5394Hamlmau mass zewb170 mg/cQFxtr62-885Uot [facility] HospitalComment on above:Performed By: #### 91004 #### [facility] [address] [facility] [place] [address], USAPORTABLE CHEST 1 VIEWon 36-50-7807VAMNLSWJ CHEST 1 VIEW [facility] Department of Radiology [address] [place] [address] Patient Name: SHABANA STALLWORTH : 1960 Sex: F Age: Race: White Pt. Location: [place] [address] Patient Status: I Ordered Date: 05/23/2018 1:15:00 [...] findings. Electronically signed by:Jewel Barnett. Transcribed by: [email or web address], User Resident: STORMY ACEVEDO Electronically Signed by: JEWEL BARNETT @ 05/23/2018 08:48 PM I personally read this/these film(s) with this residentOhio Valley HospitalComment on above:Order Comment: Check NG Tube Position, intubationPROLACTINon 56-20-5147Bsxmjgq mass conc6.23 ng/mLNormal1.39-24.20The [facility] HospitalComment on above:Performed By: #### 28226, 07638, 88100, 81364 #### [facility] [address] [place] [address], USATSH3 WITH REFLEXon 01-12-8856X7 free mass conc1.23 ng/dL Normal0.71-1.85The [facility] HospitalComment on above:Order Comment: No: Do not add to previous drawPerformed By: #### 16481, 37096, 18566, 43922 #### [facility] [address] [place] [address], [facility] 3[facility]1.62 uIU/mLNormal0.34-5.60The [facility] HospitalComment on above:Order Comment: No: Do not add to previous drawPerformed By: #### 46972, 34923, 58364, 23878 #### [facility] [address] [facility] [place] [address], [facility] Vital Signs Date TimeVital SignValuePerforming TepnxjbswFlwendkv34-23-6837 09:40-0400Body jwzpfi672.6 cmEmary Boggs MD Work Phone: [phone] [place], [place] [address]Deuxqjnmgt22-88-7486 09:40-0400Body mass index (BMI) [Ratio]35.67 kg/g9QbetkfColt Boggs MD Work Phone: [phone])[address] [place], [place] [address]Jxkqiknhyy08-53-0686 09:40-0400Body nsinzu969.25 kgColt Boggs MD Work Phone: [phone] [place], [place] [address]Dsoahjkjhs15-40-3888 09:40-0400Diastolic blood uhsknjtu70 mm[Hg]Colt Boggs MD Work Phone: [phone] CenterMrzjnsbnck83-59-9249 09:40-0400Heart rate71 /min Colt Boggs MD Work Phone: [phone] CenterFyldwfyslr06-73-9023 09:40-7323VrL3% (BldA) [Mass fraction]98 %Colt Boggs MD Work Phone: [phone])[address] [place], [place] [address]Pvjkfziime56-77-3596 09:40-0400Systolic blood ebfcynvs642 mm[Hg]Colt Boggs MD Work Phone: [phone] CenterUbbnqxaxst55-45-0794 10:31-0400Body uadses103.6 Karla Boggs MD Work Phone: [phone] CenterOgrbarffbz84-19-6148 10:31-0400Body mass index (BMI) [Ratio]35.67 kg/o8ImobhnColt Boggs MD Work Phone: 1(567)[address] [place], [place] 6580406-24-2025 10:31-0400Body ycleck862.25 kgColt Boggs MD Work Phone: 1(880)[address] [place], [place] 6580406-24-2025 10:31-0400Heart rate78 /min Colt Boggs MD Work Phone: 1(288)[address] [place], [place] 6580406-24-2025 10:31-4547HdV4% (BldA) [Mass fraction]97 %Colt Boggs MD Work Phone: 1(190)[address] [place], [place] 6580412-02-2024 09:23-0500Body zolqso468.6 cmEmary Boggs MD Work Phone: [phone] [place], [place] 6580412-02-2024 09:23-0500Body mass index (BMI) [Ratio]35.51 kg/p1HgxdpeColt Boggs MD Work Phone: 1(756)[address] [place], [place] 6580412-02-2024 09:23-0500Body rybmlg27.79 kgColt Boggs MD Work Phone: 1(334)[address] [place], [place] 6580412-02-2024 09:23-0500Diastolic blood kzkrkluk24 mm[Hg]Colt Boggs MD Work Phone: 1(550)[address] [place], [place] 6580412-02-2024 09:23-0500Heart rate79 /min Colt Boggs MD Work Phone: 1(897)[address] [place], [place] 6580412-02-2024 09:23-0312MfZ9% (BldA) [Mass fraction]98 %Colt Boggs MD Work Phone: 1(701)[address] [place], [place] 6580412-02-2024 09:23-0500Systolic blood obgncwmb576 mm[Hg]Colt Boggs MD Work Phone: 1(939)[address] [place], [place] 6580410-23-2024 08:53-0400Body tijwog122.6 Karla Boggs MD Work Phone: [phone])[address] [place], [place] 6580410-23-2024 08:53-0400Body mass index (BMI) [Ratio]35.51 kg/s0BuchzhClot Boggs MD Work Phone: 1(990)[address] [place], [place] 6580410-23-2024 08:53-0400Body hprwpa34.79 kgColt Boggs MD Work Phone: 1(312)[address] [place], [place] 6580408-26-2024 08:54-0400Body duucmb642.6 cmEmary Boggs MD Work Phone: 1(335)[address] [place], [place] 6580408-26-2024 08:54-0400Body mass index (BMI) [Ratio]35.51 kg/v5TkmfmkColt Boggs MD Work Phone: 1(357)[address] [place], [place] 6580408-26-2024 08:54-0400Body szsedx08.79 kgColt Boggs MD Work Phone: 1(095)[address] [place], [place] 6580408-26-2024 08:54-0400Heart rate75 /min Colt Boggs MD Work Phone: 1(790)[address] [place], [place] 6580408-26-2024 08:54-3159YoP4% (BldA) [Mass fraction]99 %Colt Boggs MD Work Phone: 1(442)[address] [place], [place] 6580402-16-2019 06:10-0500Respiratory rate12 /Jake BOGGSOhioHealth Dublin Methodist HospitalComment on above: Performed By: #### 13075, 64795, 17803, 55396 #### [facility] [address] [place] [address], SGZ36-39-6084 06:54-0500Respiratory rate12 /Jake BOGGS The [facility] HospitalComment on above:Performed By: #### 76569, 05890, 99661, 20971 #### [facility] [address] [place] [address], [id number] 07:11-0500Respiratory rate12 /Jake BOGGS [facility] Methodist HospitalComment on above:Performed By: #### [id number] #### [facility] [address] [place] [address], [id number] 06:37-0500Respiratory rate12 /Jake BOGGS [facility] HospitalComment on above:Performed By: #### [id number] #### [facility] [address] [place] [address], [id number] 07:31-0500Respiratory rate12 /Jake BOGGS [facility] HospitalComment on above:Performed By: #### [id number] #### [facility] [address] [place] [address], [id number] 18:54-0500Respiratory rate12 /Jake BOGGS [facility] HospitalComment on above:Performed By: #### [id number] #### [facility] [address] [place] [address], [facility] Encounters Encounter DateEncounter TypeCare ProviderFacilityStart: 02-09-2025 End: 24-93-1619Qghviuyudelka Boggs MD Work Phone: [address]: 02-09-2025 End: 94-01-1099Tlxuwuyudelka Boggs MD Work Phone: [address]: 02-09-2025 End: 47-39-7276icergmaskyFTLWEQ J HEMEYERNOMS HealthcareComment on above:Benign essential hypertension; Type 2 diabetes mellitus with stage 3a chronic kidney disease, with long-term current use of insulin ([facility]); Type 2 diabetes mellitus with hyperglycemia, with long-term current use of insulin ([facility])Start: 02-09-2025 End: 94-73-8794Ncevis outpatient visit 25 minutesColt Boggs MD Work Phone: [address] MedicineComment on above: Pneumonia of right lower lobe due to infectious organism (Primary Dx); Benign essential hypertension; Hypertensive nephropathy; Mixed hyperlipidemia; Myalgia due to statin; Morbid obesity due to excess calories ([facility]); BMI 35.0-35.9,adult; Type 2 diabetes mellitus with stage 2 chronic kidney disease, without long-term current use of insulin (HCC); Type 2 diabetes mellitus with hyperglycemia, with long-term current use of insulin (HCC); Postsurgical dumping syndromeStart: 01-07-2025 End: 17-16-9791Nbzcivtfv Result Driss Boggs MD Work Phone: noms External Department UnsolicitedStart: 01-07-2025 End: 02-30-6803Vavayiuyf Result Driss Boggs MD Work Phone: noms External Department UnsolicitedStart: 10-05-2024 End: 77-78-1564Bbqdfh flowsheetColt Boggs MD Work Phone: noms CI FM 100Start: 10-05-2024 End: 42-16-8729Khoqfx flowsSaad Boggs MD Work Phone: noms CI FM 100Start: 10-05-2024 End: 50-35-6377Mkyqkt outpatient visit 25 minutesEdirma Boggs MD Work Phone: noms CI FM 100Comment on above:Benign essential hypertension (Primary Dx); Hypertensive nephropathy ; Stage 2 chronic kidney disease; Type 2 diabetes mellitus with stage 2 chronic kidney disease, without long-term current use of insulin (HCC); Type 2 diabetes mellitus with hyperglycemia, without long-term current use of insulin (HCC); Mixed hyperlipidemia ; Morbid obesity due to excess calories ([facility]-HCC); Postsurgical dumping syndrome; Myalgia due to statinStart: 10-05-2024 End: 45-84-0049ifwmnahxngIZRANQ J HEMEYERNot AvailableStart: 09-21-2024 End: 10-37-7762Ecjeiskrt Result Driss Boggs MD Work Phone: noms External Department UnsolicitedStart: 09-21-2024 End: 18-51-6689Hrjibkihv Result rDiss Boggs MD Work Phone: noms External Department UnsolicitedStart: 08-01-2024 ambulatoryCOLT BOGGSMiller County Hospital PPGStart: 07-06-2024 End: 96-07-1025vwzczagaqkRUDULB J HEMEYERNot AvailableStart: 03-15-2024 End: 41-95-2416Alukto Basia Boggs MD Work Phone: [facility] CI FM 100Start: 03-15-2024 End: 28-97-1136Rolgqg Basia Boggs MD Work Phone: [facility] CI FM 100Start: 03-15-2024 End: 26-95-4510Kldjbn outpatient visit 25 minutesColt Boggs MD Work Phone: [facility] CI FM 100Comment on above:Benign essential hypertension (CMS/HCC); Hypertensive nephropathy (CMS/HCC); Stage 3a chronic kidney disease (HCC) (CMS/HCC); Type 2 diabetes mellitus with stage 3a chronic kidney disease, without long-term current use of insulin (HCC) (CMS/HCC); Mixed hyperlipidemia (CMS/HCC); Myalgia due to statin; Morbid obesity due to excess calories (CMS/HCC); BMI 35.0-35.9,adultStart: 03-15-2024 End: 59-22-6179eoddcvgfblTLYJST J HEMEYERNot AvailableStart: 03-02-2024 End: 06-30-5723Yqnafszqy Result Driss Boggs MD Work Phone: NOMS External Department UnsolicitedStart: 03-02-2024 End: 72-84-3470Gtkrhgyak Result Driss Boggs MD Work Phone: NORT External Department UnsolicitedStart: 02-04-2024 End: 25-26-3976Maytfq Basia Boggs MD Work Phone: [facility] CI FM 100Start: 02-04-2024 End: 37-33-7539Ocnitp Basia Boggs MD Work Phone: [facility] CI FM 100Start: 02-04-2024 End: 06-10-3860Cryctf outpatient visit 25 minutesColt Boggs MD Work Phone: [facility] CI FM 100Comment on above:Acquired hypothyroidism (CMS/HCC) (Primary Dx); Bharat's disease (CMS/HCC); Graves disease (CMS/HCC); Chronic fatigue; Morbid obesity due to excess calories (CMS/HCC); PolypharmacyStart: 01-13-2024 End: 01-59-5871Hszvwyyqy Result Driss Boggs MD Work Phone: noms External Department UnsolicitedStart: 01-13-2024 End: 11-37-0528Dhprusmpj Result Driss Boggs MD Work Phone: noms External Department UnsolicitedStart: 01-10-2024 End: 90-46-1573TmwsvvJrdedw J Hemeyer MD Work Phone: NOUG CI FM 100Comment on above:Type 2 diabetes mellitus with stage 3a chronic kidney disease, without long-term current use of insulin (HCC) (CMS/HCC)Start: 12-08-2023 End: 08-32-0208Seuvnv flowsheetColt Boggs MD Work Phone: [facility] CI FM 100Start: 12-08-2023 End: 99-14-9432Dcvwku flowsSaad Boggs MD Work Phone: noms CI FM 100Start: 12-08-2023 End: 57-73-3732Vprlfsh encounter statusEdirma Boggs MD Work Phone: [facility] Work Phone: Start: 12-08-2023 End: 53-61-1428Fauoyiuq preventive med est patient 40-64yrsEdirma Boggs MD Work Phone: NOOQ CI FM 100Comment on above:Encounter for wellness examination in adult (Primary Dx); Advance directive discussed with patient; Encounter for screening for malignant neoplasm of colon; Screening for cervical cancer; Screening mammogram, encounter for; Screening for osteoporosis; Screening for colon cancer; Type 2 diabetes mellitus with stage 3a chronic kidney disease, without long-term current use of insulin (HCC) (CMS/HCC); Class 2 severe obesity due to excess calories with serious comorbidity and body mass index (BMI) of35.0 to 35.9 in adult ([facility]); MicroalbuminuriaStart: 08-13-2022 End: 01-76-8507ahtfcjyjfrUE EDWARD HEMEEDINSON .Facility:U8Fhnaw: 07-04-2022 End: 70-89-5147lpwmbdtzxcCV EDWARD HEMEEDINSON .Facility:J7Edwyx: 06-20-2022 ambulatoryDR EDIRMA BOGGS .Facility:I1Zifau: 02-25-2022 End: 04-07-4282fxhqjkluxmFA EDWARD HEMEEDINSON .Facility:Y1Bqgmr: 09-01-2021 End: 62-50-5582fmdxalvgyvSE EDWARD HEMEEDINSON .Facility:Q8Fptjv: 05-23-2018 End: 25-66-2736Nsntavcfps and management of inpatientEDWARD HEMEYERFacility:[facility] Procedures DateProcedureProcedure DetailPerforming ClinicianStart: 73-29-8603SXQ HEMOGLOBIN Q3UFjypxiColt Boggs MD Work Phone: Start: 45-21-1600HZN MICROALB CREAT RATIO RANDOMColt Boggs MD Work Phone: Start: 71-47-7207LVH HEMOGLOBIN J0HAfkfhjColt Boggs MD Work Phone: Start: 15-38-6923IFA THYROXINE (T4) FREEColt Boggs MD Work Phone: Start: 75-57-4916HRB THYROXINE (T4) FREEColt Boggs MD Work Phone: Start: 74-03-7054LcedbcciriyJkqyhg Hemeyer MD Work Phone: Start: 19-45-6324Bgcfn albumin semiquantitativeColt Boggs MD Work Phone: Start: 20-98-0282IaxrminlfpvRihrey Hemeyer MD Work Phone: Start: 69-50-8689Apizroxr of Spinal Canal, Percutaneous Approach, DiagnosticEHAB A ELTAHAWYStart: 17-43-2655PAHSXFCXCKO OF SPINAL CORDEHAB A ELTAHAWYStart: 59-77-3281ZPSMWPXPT OF ENDOTRACHEAL AIRWAY INTO TRACHEA, VIA OPENINGREG JEANIStart: 56-58-7100GBLMHNK OF ARTERIAL SATURATION, PERIPHERAL, PERC APPROACHJAINDIO WILLEYStart: 10-31-1693ADJOSYVNGMA OF ELECTROMEDICAL EQUIPMENT TECHNICIAN ELECTR ACTIVITY, MACHINE COMPOSITOR APPROACHMARIBEL MARINELLIStart: 05-23-2018 MONITORING OF ELECTROMEDICAL EQUIPMENT TECHNICIAN ELECTR ACTIVITY, MACHINE COMPOSITOR MOODY MARINELLIStart: 97-19-6333HUAGFIBGXLF VENTILATION, GREATER THAN 96 CONSECUTIVE HOURSREG RAHMAN Plan of Treatment DateCare ActivityDetailAuthorStart: 39-77-7397Zgkhxxpjq for malignant neoplasm of colonNOMS HealthcareStart: 58-61-6314Hkomnicy screeningDiabetes: Retinopathy ScreeningNOMS HealthcareStart: 76-51-1965Zdhoy screening for proteinDiabetes: Urine Protein ScreeningNOMA HealthcareStart: 96-56-8401Hzimbaweb vaccination Influenza Vaccine (#1)[facility] HealthcareComment on above:Postponed from 12/13/2024 (Patient Refused)Start: 08-02-3398Sxidhqjyhq A1c measurementDiabetes: Hemoglobin Y5JXQIV HealthcareStart: 01-10-2025 End: 19-32-8548Fmktkjx encounter vxbqaiziw23/29/2025 10:00 AM EDT Office Visit [facility] [address] [place] [address] [place] [address] Colt Boggs MD [address] [place], [place] [phone] (Work) (Fax)[facility] [address] [facility] [place] Campustart: 01-03-2025 End: 77-67-1727Nkspctb encounter gupmpgtkh56/22/2025 9:30 AM EDT Office Visit [facility] [address] [facility] [address] [place] [address] Colt Boggs MD [address] [place] [address] N[facility] CI FM 100Start: 50-68-9136Sogppelbqv A1c measurementDiabetes: Hemoglobin O9NHEJV HealthcareStart: 85-22-4266Adqeggfhn for malignant neoplasm of breastMammogramHIGHLAND RIDGE HOSPITAL HealthcareStart: 12-13-2024 Influenza vaccinationNOMA HealthcareStart: 39-59-8391Meibe screening for protein Diabetes: Urine Protein ScreeningHIGHLAND RIDGE HOSPITAL HealthcareStart: 10-05-2024 End: 58-42-5201Cegyhuqjtg A1c/Hemoglobin.total in BloodHemoglobin A1c Lab Routine Type 2 diabetes mellitus with stage 2 chronic kidney disease, without long-term current use of insulin ([facility]) Expected: 10/05/2024 (Approximate), Expires: 10/05/2025[facility] Work Phone: Comment on above:Expected: 10/05/2024 (Approximate), Expires: 10/05/2025Start: 10-05-2024 End: 03-73-6587Rawfost encounter procedureNOMS CI FM 100Comment on above:Benign essential hypertension ; Hypertensive nephropathy ; Stage 3a chronic kidney disease ([facility]); Type 2 diabetes mellitus with stage 3a chronic kidney disease, without long-term current use of insulin ([facility]); Mixed hyperlipidemia ; Morbid obesity due to excess calories ([facility])Start: 06-08-2024 End: 26-17-8105Ohxmssy encounter /25/2025 9:00 AM EST Office Visit [facility] 100 [address] [facility] [address] [place] [address] Colt Boggs MD [address] [facility] [address] [place] [address] [facility] CI FM 100Start: 31-11-9351Gaiprfsh screeningDiabetes: Retinopathy ScreeningHIGHLAND RIDGE HOSPITAL HealthcareStart: 03-15-2024 End: 59-60-5611Zihneifznd A1c/Hemoglobin.total in BloodHemoglobin A1c Lab Routine Type 2 diabetes mellitus with stage 3a chronic kidney disease, without long-term current use of insulin (HCC) ([facility]) Expected: 03/15/2024 (Approximate), Expires: 03/15/2025[facility] Work Phone: Comment on above:Expected: 03/15/2024 (Approximate), Expires: 03/15/2025Start: 03-15-2024 End: 48-46-1595Kdyauaf encounter procedureNOMS CI FM 100Comment on above:Benign essential hypertension (CMS/HCC); Hypertensive nephropathy (CMS/HCC); Stage 3a chronic kidney disease (HCC) (CMS/HCC); Mixed hyperlipidemia (CMS/HCC); Myalgia due to statin; Type 2 diabetes mellitus with stage 3a chronic kidney disease, without long-term current use of insulin (HCC) (CMS/HCC); Morbid obesity due to excess calories (CMS/HCC); BMI 35.0-35.9,adultStart: 02-04-2024 End: 17-29-4270Fczriqb encounter pmjdwxboo15/23/2024 9:00 AM EDT Office Visit [facility] [address] [phone] Colt Boggs MD [address] [place] [address] (Fax) Bharat's disease (CMS/HCC); Acquired hypothyroidism (CMS/HCC); Chronic fatigue; Morbid obesity due to excess calories (CMS/HCC)NOM[facility] CI FM 100Comment on above:Bharat's disease (CMS/HCC); Acquired hypothyroidism (CMS/HCC); Chronic fatigue; Morbid obesity due to excess calories (CMS/HCC)Start: 74-31-5595Avuyemkik vaccinationInfluenza Vaccine (#1)[facility] CenterStart: 12-08-2023 End: 75-74-0071CT Breast - bilateral ScreeningBilateral screening mammogram Imaging Routine Screening mammogram, encounter for Expected: 12/08/2023, Expires: 02/06/2025[facility] Work Phone: Comment on above:Expected: 12/08/2023, Expires: 02/06/2025Start: 12-08-2023 End: 60-01-4217Zeaawxi encounter znxsymtxd66/26/2024 9:00 AM EDT Office Visit [facility] [address] [phone] Colt Boggs MD [address] [place] [address] Encounter for wellness examination in adult; Advance directive discussed with patient; Encounter for screening for malignant neoplasm of colon; Screening for cervical cancer; Screening mammogram, encounter for; Screening for osteoporosisNOMS FM 100Comment on above:Encounter for wellness examination in adult; Advance directive discussed with patient; Encounter for screening for malignant neoplasm of colon; Screening for cervical cancer; Screening mammogram, encounter for; Screening for osteoporosisStart: 37-61-7901Amvxd screening for proteinDiabetes: Urine Protein ScreeningAudrain Medical CenterStart: 90-48-0697Jyhpapxoew A1c measurementDiabetes: Hemoglobin Z3FDZTPAudrain Medical CenterStart: 68-76-5711Ggwomsgwr for malignant neoplasm of breastMammogramAudrain Medical CenterStart: 79-03-5297Enpkdgbkt for malignant neoplasm of cervixNOMA HealthcareStart: 50-73-4516Yeyrbbiub for malignant neoplasm of cervixPap SmearAudrain Medical CenterStart: 73-73-2265Cabgfizyu for malignant neoplasm of colonNOMA HealthcareNoninvasive colorectal cancer DNA and occult blood screening [Presence] in StoolCologuard colon cancer screening Lab Routine Encounter for screening for malignant neoplasm of colon Ordered: 12/08/2023[facility] CenterComment on above:Ordered: 12/08/2023 Immunizations Immunization DateImmunizationNotesCare CfvebucqNfmwetrj52-14-9896gjllixsbm, injectable, quadrivalent, preservative freeColt Boggs MD Work Phone: [facility] CenterIuczgikqcl72-06-7678ihiycpzmm virus vaccine, unspecified formulationColt Boggs MD Work Phone: [facility] Payers DatePayer CategoryPayerPolicy [id number] 2023Medicaid [id number] 2..840.1.419839.3.57[id number] 2.16.840.1.662960.3.57[id number] 2.16.840.1.139161.3.57[id number] 2.16.840.1.604759.3.57[id number] 2.16.840.1.202065.3.57[id number] 2.16.840.1.649342.3.57[id number] 2.16.840.1.834382.3.57[id number] 2.16.840.1.543941.3.57[id number] 2.16.840.1.533185.3.57[id number] 2.16.840.1.809063.3.57[id number] 2.16.840.1.104032.3.57[id number] 2.16.840.1.026486.3.579.[id number] [id number] Social History DateTypeDetailFacilityStart: 85-31-5546Kavejak smoking status NHISNever smoked tobaccoNOMS HealthcareStart: 41-99-9681Fsbrpcz use and exposureSmokeless tobacco non-userNOMS HealthcareStart: 12-08-2023 End: 20-59-9572Ekbiicvtq beverage intakeLifetime non-drinker (finding)[facility] HealthcareStart: 01-01-2023 End: 98-45-4990Yzqbpat of Social functionNOMA HealthcareStart: 01-01-2023 End: 01-74-7030Vxpnkgyyvuu, Afraid, Rape, and Kick questionnaire [HARK][facility] CenterWithin the last year, have you been afraid of your partner or ex-partner?NoNOMS HealthcareDo you belong to any clubs or organizations such as voodoo groups, unions, fraternal or athletic groups, or school groups?YesNOMS HealthcareAre you now , , , , never or living with a partner?MarriedNOMA HealthcareHow often to you have a drink containing alcohol?NeverNOMA HealthcareStart: 95-51-2037Rkv many standard drinks containing alcohol do you have on a typical day?Patient does not drinkNOMA HealthcareHow hard is it for you to pay for the very basics like food, housing, medical care, and heatingNot very hardNOMS HealthcareDo you feel stress - tense, restless, nervous, or anxious, or unable to sleep at night because yourmind is troubled all the time - these days [OSQ]Not at allNOMS Healthcare(I/We) worried whether (my/our) food would run out before (I/we) got money to buy more.Never trueNOMA HealthcareStart: 21-40-7149Qwalhofmw41CNSK HealthcareStart: 1960 Sex assigned at birthNot on fileAudrain Medical CenterNEGATED: Highlighted rowStart: NINFHistory of tobacco usePassive smokerAudrain Medical Center Functional Status KkwpWftzurwviiNypwwtMhsgafrn58-96-9695Lulcvcu Health Questionnaire 2 item (PHQ- 2) [Reported][facility] Medical CenterKtyohydvgb68-55-9044Qlejwoi Health Questionnaire 2 item (PHQ- 2) [Reported][facility] Clinical Notes 12-08-2023 to 02-15-2025 Note Date & LsenGcogUfozdcxy75-10-2383 Evaluation note* Diagnosis Type 2 diabetes mellitus with stage 3a chronic kidney disease, without long-term current use of insulin (HCC) Mixed hyperlipidemia Benign essential hypertension Essential hypertension, benign Hypertensive nephropathy Unspecified hypertensive kidney disease with chronic kidney disease stage I through stage IV, or unspecified Stage 3a chronic kidney disease (CMS-HCC) Pneumonia of right lower lobe due to infectious organism- Primary Benign essential hypertension Essential hypertension, benign Hypertensive nephropathy Unspecified hypertensive kidney disease with chronic kidney disease stage I through stage IV, or unspecified Mixed hyperlipidemia Myalgia due to statin Morbid obesity due to excess calories ([facility]) BMI 35.0-35.9,adult Type 2 diabetes mellitus with stage 2 chronic kidney disease, without long-term current use of insulin (HCC) Type 2 diabetes mellitus with hyperglycemia, with long-term current use of insulin ([facility]) Postsurgical dumping syndrome documented in this encounter [facility] CenterDorvxltztc78-64-0809 History of Present illness Narrative* Colt Boggs MD - 02/09/2025 9:30 AM EDT Images from the original note were not included. Patient ID: Shabana Stallworth is a 65 y.o. female who presents for: Needs to get THY labs for OV Hypertension Patient is here for follow-up of elevated blood pressure. She is not exercising and is adherent to a low-salt diet. Blood pressure is not well controlled at home. Cardiac symptoms: none. Patient denies chest pain, dyspnea, irregular heart beat, lower extremity edema, and palpitations. Cardiovascular risk factors: diabetes mellitus, dyslipidemia, hypertension, microalbuminuria, obesity (BMI >= 30 kg/m2), and sedentary [...] visual disturbances. Evaluation to date has included: hemoglobin A1C and microalbuminuria. Home sugars: patientdoes not check sugars. Upper Respiratory Infection Patient complains of symptoms of a URI. Symptoms include congestion, nasal congestion, productive cough with green colored sputum, and wheezing. Onset of symptoms was 5 days ago, and has been unchanged since that time. Treatment to date: none. Review of Systems Constitutional: Negative for activity change and fatigue. Respiratory: Negative for cough, shortness of breath and wheezing. Cardiovascular: Negative for chest pain, palpitations and leg swelling. Neurological: Negative for light-headedness and headaches. Objective In general the patient is pleasant and in no acute distress. Bilateral ears, canals are within normal limits. Right TM is transparent and somewhat retracted. Left TM is transparent and somewhat retracted. No fluid layer. Bilateral nares demonstrate inflamed mucosa. Oropharynx has moist mucosa there is no specific evidence of thrush. There is mild erythema of the pharynx. Shoddy bilateral anterior cervical adenopathy. No signs of respiratory distress. Patient is speaking full sentences. There are asymmetrical breathsounds With a decrease in the right lower lung field. No rhonchi are appreciated. There are faint wheezes, and there are rales in the right lower lung field Skin is warm and dry 02/09/2025 9:40 AM 10/05/2024 10:31 AM 07/06/2024 9:01 AM 03/15/2024 9:23 AM Vitals BMI 35.67 kg/m2 35.67 kg/m2 35.83 kg/m2 35.51 kg/m2 BSA (m2) 2.16 m2 2.16 m2 2.17 m2 2.16 m2 Systolic 128 128 128 Diastolic 78 80 76 Heart Rate 71 78 81 79 SpO2 98 % 97 % 97 % 98 % Height (in) 5' 6 5' 6 5' 6 5' 6 Weight (lb) 221 221 222 220 Visit Report Report Report Report Report Allergies[1] Medications Ordered Prior to Encounter[2] 1. Benign essential hypertension Chronic problem, stable, to goal, continue current treatment. Refill medications. - losartan (Cozaar) 100 MG tablet; Take 1 tablet (100 mg) by mouth Daily Dispense: 30 tablet; Refill: 2 - metoprolol tartrate (Lopressor) 50 MG tablet; Take 1 tablet (50 mg) by mouth in the morning and 1tablet (50 mg) before bedtime. Dispense: 60 tablet; Refill: 2 2. Hypertensive nephropathy Urine Microalbumin from December is positive for microalbuminuria. Chronic problem, defining an aspect the nephropathy, with significant risk, uncertain progression requiring longitudinal monitoring, and moderate decision making. Microalbuminuria describes a moderate increase in the level of urine albumin. Normally, the kidneysfilter albumin, so if the kidney leaks small amounts of albumin into the urine then it is a indicator of chronic kidney disease. Microalbuminuria is an independent indicator of increased cardiovascular risk among individuals andtherefore can be used for risk stratification for cardiovascular disease. 3. Mixed hyperlipidemia Chronic problem that is stable and actually appears improved. The Patient is taking colestipol as she is statin intolerant. The colestipol is also helping her with her dumping syndrome. 4. Myalgia due to statin As above 6. Morbid obesity due to excess calories ([facility]) Chronic problem we have discussed lifestyle changes on multiple occasions with little implementation by the patient. 7. BMI 35.0-35.9,adult Chronic problem defines the morbid obesity 8. Type 2 diabetes mellitus with stage 2 chronic kidney disease, without long- term current use of insulin (HCC) Still not to goal. Improved from previous. Continue current treatment. - metFORMIN (Glucophage) 1000 MG tablet; Take 1 tablet (1,000 mg) by mouth in the morning and 1 tablet (1,000 mg) in the evening. Take with meals. Dispense: 60 tablet; Refill: 2 10. Type 2 diabetes mellitus with hyperglycemia, with long-term current use of insulin ([facility]) Chronic problem still not to goal with hemoglobin A1c of 9. It is better than her previous hemoglobin A1c of 11. I have stressed to her the importance of getting me her blood sugar results on a regular basis every 7-10 days so that we can make adjustments to her insulin dosing an attempt to get better control. I again reminded her permanent irreversible damage being done from these abnormalities 11. Postsurgical dumping syndrome As noted above cross treats her dyslipidemia - colestipol (Colestid) 1 g tablet; Titrate from 1 to 2 tablets twice daily. Take at least 1 hour after or 4 hours before other medications. Dispense: 120 tablet; Refill: 1 12. Pneumonia of right lower lobe due to infectious organism (Primary) New, acute problem New prescription - cefuroxime (Ceftin) 500 MG tablet; Take 1 tablet (500 mg) by mouth in the morning and 1 tablet (500 mg) before bedtime. Do all this for 10 days. Dispense: 20 tablet; Refill: 0 Please Note: Portions of this chart may have been created using voice recognition software. Occasionally a wrong-word or sound-like substitutions may have occurred due to inherent limitations of the voice recognition software. Please read the chart carefully and recognize, using context, where the substitutions may have occurred. [1] Allergies Allergen Reactions Semaglutide Other Reaction(s): nausea and vomiting, hair fell out Crestor [Rosuvastatin] Other Bad muscle and Joint Pain Nalbuphine GI intolerance [2] Current Outpatient Medications on File Prior to Visit Medication Sig Dispense Refill aspirin 81 MG EC tablet Take 81 mg by mouth 1 (one) time each day at the same time. biotin 1 MG capsule Take 1 capsule by mouth 1 (one) time each day at the same time. colestipol (Colestid) 1 g tablet Titrate from 1 to 2 tablets twice daily. Take at least 1 hour after or 4 hours before other medications. 120 tablet 1 Continuous Glucose Team Coordinator (FreeStyle Sincere 3 Tillman) device 1 Device See administration instructions 1 each 0 Continuous Glucose Sensor (FreeStyle Sincere 3 Sensor) misc Inject 1 Device under the skin every 14 (fourteen) days 6 each 3 empagliflozin (Jardiance) 25 MG Take 1 tablet (25 mg) by mouth Daily 30 tablet 2 insulin glargine (Basaglar KwikPen) 100 UNIT/ML pen Inject 20 Units under the skin Daily 6 mL 0 levothyroxine (Synthroid, Levoxyl) 75 MCG tablet Take 1 tablet (75 mcg) by mouth in the morning. Take before meals. 30 tablet 11 losartan (Cozaar) 100 MG tablet Take 1 tablet (100 mg) by mouth Daily 30 tablet 2 metFORMIN (Glucophage) 1000 MG tablet Take 1 tablet (1,000 mg) by mouth in the morning and 1 tablet(1,000 mg) in the evening. Take with meals. 60 tablet 2 metoprolol tartrate (Lopressor) 50 MG tablet Take 1 tablet (50 mg) by mouth in the morning and 1 tablet (50 mg) before bedtime. 60 tablet 2 Potassium 99 MG tablet Take 99 mg by mouth 1 (one) time each day at the same time. Continuous Glucose Sensor (Simplera Sensor) misc 1 Application every 14 (fourteen) days Inject 1 Device under the skin every 14 (fourteen) days, use with device covered by insurance 5 each 2 Continuous Glucose Sensor (Simplera System) misc 1 Device Daily Please use device system approved by insurance 1 each 0 No current facility-administered medications on file prior to visit. documented in this encounterAudrain Medical [id number] Evaluation note* Diagnosis Type 2 diabetes mellitus with stage 3a chronic kidney disease, without long-term current use of insulin (HCC) Mixed hyperlipidemia Mixed hyperlipidemia Benign essential hypertension Essential hypertension, benign Hypertensive nephropathy Unspecified hypertensive kidney disease with chronic kidney disease stage I through stage IV, or unspecified Stage 3a chronic kidney disease ([facility]-HCC) Benign essential hypertension- Primary Essential hypertension, benign [...] hyperlipidemia Morbid obesity due to excess calories ([facility]-HCC) Postsurgical dumping syndrome Myalgia due to statin documented in this encounter [facility] [id number] History of Present illness Narrative* Colt Boggs MD - 10/05/2024 10:30 AM EDT Images from the original note were not [...] by mouth in the morning and 1 tablet(1,000 mg) in the evening. Take with meals. [...] mg) by mouth in the morning and 1tablet (50 mg) before bedtime. Dispense: 60 tablet; Refill: 2 2. Hypertensive nephropathy 3. Stage 2 chronic kidney disease 4. Type 2 diabetes mellitus with stage 2 chronic kidney disease, without long- term current use of insulin (HCC) Chronic problem [...] which also cause this. documented in this encounterAudrain Medical [id number] History of Present illness Narrative* Colt Boggs MD - 03/15/2024 9:30 AM EST Images from the original note were not [...] repeat fasting lipid profile was done. The patientdoes not use medications that may worsen dyslipidemias [...] by mouth in the morning and 1 tablet(1,000 mg) in the evening. Take with meals. [...] prior to visit. 1. Benign essential hypertension (CMS/[facility]) Chronic problem, stable, to goal. In [...] mg) by mouth in the morning and 1tablet (50 mg) before bedtime. Dispense: 60 tablet; Refill: 2 2. Hypertensive nephropathy (CMS/HCC) 3. Stage 3a chronic kidney disease (HCC) (CMS/HCC) 4. Type 2 diabetes mellitus with stage 3a chronic kidney disease, without long- term current use of insulin (HCC) (CMS/HCC) Chronic problem that is unstable and has significant worsening of her hemoglobin A1c. She is not togoal. I did review the last 3 hemoglobin [...] defines the morbid obesity documented in this encounterAudrain Medical [id number] Evaluation note* Diagnosis Type 2 diabetes mellitus with stage [...] (CMS/HCC) BMI 35.0-35.9,adult documented in this encounter [facility] [id number] History of Present illness Narrative* Colt Boggs MD - 02/04/2024 9:00 AM EDT Images from the original note were not [...] by mouth in the morning and 1 tablet(1,000 mg) in the evening. Take with meals. [...] the patient's current prescriptions and discussed the possibilitiesof medication renewals, adjustments, new medication start, or [...] tablet (75 mcg) by mouth in the morning.Take before meals. Dispense: 30 tablet; Refill: 11 2. Bharat's disease (CMS/HCC) Chronic problem, clinically asymptomatic, causative of the acquired hypothyroidism. 3. Graves disease (CMS/HCC) Chronic problem, currently clinically asymptomatic. She has had ocular involvement before. She follows with and I home care rn. 4. Chronic fatigue Chronic problem, stable, complex in nature with moderate decision making. I discussed with the patient and/or their textile designs sales representative, their fatigue issues. We discussed [...] polypharmacy; 5 or more prescriptions or multi-morbidity definedas 5 or more diagnoses. Polypharmacy can significantly increase the risk of preventable adverse drug events and negatively impact adherence. Consideration of diverse factors such as clinician agreement, patient perspective,and de-prescribing, as appropriate can improve patient outcomes while simplifying care. This requires longitudinal monitoring as there is at least a moderate risk of morbidity and requires at least amoderate degree of evaluation and management. documented in this encounterAudrain Medical [id number] Evaluation note* Diagnosis Type 2 diabetes mellitus with stage 3a chronic kidney disease, without long-term current use of insulin (HCC) (CMS/HCC) Mixed hyperlipidemia (CMS/HCC) Mixed hyperlipidemia Benign essential hypertension (CMS/HCC) Essential hypertension, benign Hypertensive nephropathy (CMS/HCC) Unspecified hypertensive kidney disease with chronic kidney disease stage I through stage IV, or unspecified Stage 3a chronic kidney disease (HCC) ([facility]/HCC) Acquired hypothyroidism (CMS/HCC)- Primary Unspecified hypothyroidism Bharat's disease (CMS/HCC) Chronic lymphocytic thyroiditis Graves disease (CMS/HCC) Toxic diffuse goiter without mention of thyrotoxic crisis or storm Chronic fatigue Other malaise and fatigue Morbid obesity due to excess calories ([facility]/HCC) Polypharmacy Issue of repeat prescriptions documented in this encounter [facility] [id number] History of Present illness Narrative* Colt Boggs MD - 12/08/2023 9:00 AM EDT Images from the original note were not included. Patient ID: Shabana Stallworth is a 63 y.o. female who presents for: See Scanned Wellness packet Advance Directive/Living Will: No Health Care Power of Switch Repairer: No Review of Systems Constitutional: Negative for [...] by mouth in the morning and 1 tablet(1,000 mg) in the evening. Take with meals. [...] through a living will, durable power of civil rights attorney for healthcare, or other advanced directives. We discussed telling hannah people about their advance and a copy will be kept in the EHR. I discussedthat they should also make me an emergency [...] has had previous Pap smears and none wereabnormal to her memory. I do remember we [...] with stage 3a chronic kidney disease, without long- term current use of insulin (HCC) ([facility]/HCC) Patient was overdue And is screen today. - POCT microalbumin manually resulted 9. Class 2 severe obesity due to excess calories with serious comorbidity and body mass index (BMI)of 35.0 to 35.9 in adult ([facility]) Chronic problems and we have discussed multiple times lifestyle. 10. Microalbuminuria Chronic problem, defining an aspect the nephropathy, with significant risk, uncertain progression requiring longitudinal monitoring, and moderate decision making. Microalbuminuria describes a moderate increase in the level of urine albumin. Normally, the kidneysfilter albumin, so if the kidney leaks small amounts of albumin into the urine then it is a indicator of chronic kidney disease. Microalbuminuria is an independent indicator of increased cardiovascular risk among individuals andtherefore can be used for risk stratification for cardiovascular disease. documented in this encounterN[facility] HealthcareEvaluation note* Diagnosis Encounter for wellness examination in adult- [...] disease, without long-term current use of insulin ([facility]) ([facility]) Class 2 severe obesity due to excess calories with serious comorbidity and body mass index (BMI) of35.0 to 35.9 in adult ([facility]) Microalbuminuria Proteinuria documented [facility] encounter [facility]* Diagnosis Type 2 diabetes mellitus with stage 3a chronic kidney disease, without long-term current use of insulin (HCC) ([facility]) documented in this encounter [facility]* Diagnosis Type 2 diabetes mellitus with stage 3a chronic kidney disease, without long-term current use of insulin ([facility]) Mixed hyperlipidemia Benign essential hypertension Essential hypertension, benign Hypertensive nephropathy Unspecified hypertensive kidney disease with chronic kidney disease stage I through stage IV, or unspecified Stage 3a chronic kidney disease ([facility]) Benign essential hypertension Essential hypertension, benign Type 2 diabetes mellitus with stage 3a chronic kidney disease, with long-term current use of insulin (HCC) Type 2 diabetes mellitus with hyperglycemia, with long-term current use of insulin ([facility]) documented in this encounter [facility] Healthcare Summary Purpose Family History No Family History Records FoundNo Family History Records FoundNo Family History Records FoundNo Family History Records Found Advance Directives No Advanced Directives Records FoundNo Advanced Directives Records FoundNo Advanced Directives Records FoundNo Advanced Directives Records Found Hospital Course Note MR#: [id number] [facility] Pt. Name: Shabana Stallworth Admitted: 05/23/2018 Discharged: [...] and content) DATE CREATED AUTHOR 07/07/2018 [facility] DATE CREATED AUTHOR AUTHOR'S ORGANIZ ATION 08/20/2022 [facility] DATE CREATED AUTHOR AUTHOR'S ORGANIZ ATION 08/02/2024 [facility] DATE CREATED AUTHOR AUTHOR'S ORGANIZ ATION 02/10/2025 [facility] EPIC Care Teams (unrecognized sec tion and content) Team MemberRelationshipSpecialtyStart DateEnd Date Colt Boggs MD [address] [place] [phone] PCP - GeneralFamily Medicine10/16/22 Colt Boggs MD [address] [place] [address] PCP - [facility]07/14/23Team MemberRelationshipSpecialtyStart DateEnd Date Colt Boggs MD [address] [place] [address] PCP - GeneralFamily Medicine10/16/22 Colt Boggs MD [address] [place] [address] (Fax) PCP - [facility]07/14/23Team MemberRelationshipSpecialtyStart DateEnd Date Colt Boggs MD [address] [place] [address] PCP - GeneralFami Medicine10/16/22 Colt Boggs MD [address] [place] [address] (Fax) PCP - [facility]07/14/23Team MemberRelationshipSpecialtyStart DateEnd Date Colt Boggs MD (Fax) PCP - GeneralFamily Medicine10/16/22 Colt Boggs MD [address] [place] [address] (Fax) PCP - [facility]07/14/23Team MemberRelationshipSpecialtyStart DateEnd Date Colt Boggs MD (Fax) PCP - GeneralFamily Medicine10/16/22 Colt Boggs MD [address] [place] [address] (Fax) PCP - [facility]07/14/23Team MemberRelationshipSpecialtyStart DateEnd Date Colt Boggs MD (Fax) PCP - GeneralFamily Medicine10/16/22 Colt Boggs MD [address] [place] [address] (Fax) PCP - [facility]07/14/23Team MemberRelationshipSpecialtyStart DateEnd Date Colt Boggs MD [address] [place] [phone] PCP - Generalmi Medicine10/16/22Team MemberRelationshipSpecialtyStart DateEnd Date Colt Boggs MD [address] [place] [address] PCP - Generalmi Medicine10/16/22Team MemberRelationshipSpecialtyStart DateEnd Date Colt Boggs MD [address] [place] [phone] PCP - Generalmi Medicine10/16/22 Colt Boggs MD [address] [place] [address] (Fax) PCP - [facility]07/14/23Team MemberRelationshipSpecialtyStart DateEnd Date Colt Boggs MD (Fax) PCP - GeneralFamily Medicine10/16/22 Colt Boggs MD [address] [place] [address] (Fax) PCP - [facility]07/14/23Team MemberRelationshipSpecialtyStart DateEnd Date Colt Boggs MD (Fax) PCP - GeneralFamily Medicine10/16/22 Colt Boggs MD [address] [place] [address] (Fax) PCP - [facility]07/14/23Team MemberRelationshipSpecialtyStart DateEnd Date Colt Boggs MD (Fax) [facility]CP - [facility]10/16/22 Colt Boggs MD [address] [place] [address] (Fax) PCP - [facility]07/14/23Team MemberRelationshipSpecialtyStart DateEnd Date Colt Boggs MD (Fax) PCP - Generalmi Medicine10/16/22 Colt Boggs MD [address] [place] [address] (Fax) PCP - [facility]07/14/23Team MemberRelationshipSpecialtyStart DateEnd Date Colt Boggs MD (Fax) [facility] - [facility]/16/22 Colt Boggs MD [address] [place] [address] (Fax) PCP - [facility]07/14/23Team MemberRelationshipSpecialtyStart DateEnd Date Colt Boggs MD [address] [facility] [address] [place] [address] (Fax) PCP - [facility]07/14/23 Colt Boggs MD [address] [facility] [address] [place] [address] (Fax) PCP - Generalmily Fofksuvr99/29/25Team MemberRelationshipSpecialtyStart Date End Date Colt Boggs MD [address] [facility] [address] [place] [address] (Fax) PCP - [facility]vir [facility]07/14/23 Colt Boggs MD [address] [facility] [address] [place] [address] (Fax) PCP - Generalmi Zuilxgvo09/29/25 Reason for Visit (unrecogniz ed section and content) ReasonCommentsHypothyroidismReasonCommentsHypertensionHyperlipidemiaDiabetes ReasonCommentsAnnual ExamReasonCommentsMed RefillReasonCommentsMed Change Request FOR RECORDS PERTAINING TO PATIENTS WHO ARE [...] BE BASED ON THE PRIMARY CLINICAL RECORDS. [facility] [employer] [facility]. provides no warranty or guarantee of the accuracy or completeness of information in this document.
[2025-03-04 09:51] LABS: Free T3 2.75 pg/mL (2.18-3.98); Thyroid Stimulating Hormone 2.470 uIU/mL (0.358-3.740)
== END 2025-03-04 08:31 | disposition home or self-care (01) ==
LOC: LAB 08:31
PROVIDERS: PCP Family Medicine; Visit Provider Family Medicine
DX: E03.9 Hypothyroidism, unspecified (principal); E05.00 Thyrotoxicosis with diffuse goiter without thyrotoxic crisis or storm; R53.82 Chronic fatigue, unspecified
CPT/HCPCS: 36415; 84439; 84443; 84481

== ENCOUNTER 2025-03-25 08:23 | Outpatient (OUT) | payer MEDICAID, SELFPAY ==
--- OUTSIDE RECORDS SUMMARY | 2025-03-25 08:29 | XMS_ITS | CCD ---
Author Organization [facility] Care Team Providers Care Front Office Manager Name Role Phone COLT BOGGS Referring Unavailable HEMEYER, COLT Primary Care Unavailable RENNO, ANAS Attending Unavailable RENNO, ANAS Admitting Unavailable AR Procedure Practitioner Unavailab REG Molina Surgeon Unavailable AR Procedure Practitioner Unavailab MARIBEL Richardson Surgeon Unavail able AR Procedure Practitioner Unavailab TK Ha A Surgeon Unavailable AR Procedure Practitioner Unavailab le UNKNOWN, PROVIDER Surgeon [...] Unavailable Alfredyer Colt LANZA Primary Care Provider [phone] Colt Boggs MD Unavailable Colt Boggs MD Primary Care Provider Colt Boggs MD Unavailable [phone] COLT BOGGS Referring Unavailable COLT BOGGS Primary Care Unavailable Colt Boggs MD Unavailable COLT BOGGS Attending Unavailable COLT BOGGS Attending Unavailable COLT BOGGS Attending Unavailable COLT BOGGS Attending Unavailable Colt Boggs MD Primary Care Provider Allergies Allergy ClassificationReported Allergen(s)Allergy TypeDate of OnsetReaction(s) Facility (2 sources)NalbuphineDrug Jgpzlzl86-56-9946Tcf [facility] Repository (20 sources)Nalbuphine; Translations: [NALBUPHINE]Drug Aqufmmv16-59-9898VI intoleranceNOEllett Memorial Hospital (20 sources)Rosuvastatin calciumPropensity to adverse mmufivcxo60-36-8037Lvdlt [facility] (20 sources)SemaglutideAllergy to lqeixqvqm37-28-5026IVJO Healthcare Medications Current Medications MedicationDrug Class(es)DatesSig (Normalized)Sig [...] oral tablet (3 sources)Cephalosporin AntibacterialStart: 02-09-2025 End: 54-85-4388emjh 1 tablet by mouth in the morningcefuroxime (Ceftin) 500 MG tablet Indications: Pneumonia of right lower lobe due to infectious organism Take 1 tablet (500 mg) by mouth in the morning and 1 tablet (500 mg) before bedtime. Do all this for 10 days. 20 tablet 02/09/2025 02/19/2025 Active colestipol hydrochloride 1000 mg oral tablet (9 sources)Bile Acid SequestrantStart: 10-05-2024 End: 39-02-4698tkmcvkanfm (Colestid) 1 g tablet Indications: Postsurgical dumping syndrome Titrate from 1 to 2 tablets twice daily. Take at least 1 hour after or 4 hours before other medications. 120 tablet 1 02/09/2025 Active Continuous Glucose Quality Rep (FreeStyle Sincere 3 [place]) device (4 sources)Start: 79-25-8563Hypjxclrmr Glucose Quality Rep (FreeStyle Sincere 3 [place]) device Indications: Benign essential hypertension , Type 2 diabetes mellitus with stage 3a chronic kidney disease, with long-term current use of insulin (HCC) , Type 2 diabetes mellitus with hyperglycemia, with long-term current use of insulin (HCC) 1 Device See administration instructions 1 each 01/17/2025 ActiveContinuous Glucose Sensor (FreeStyle Sincere 3 [place] [facility] [place]Start: 64-56-5714Gpzjfkesrb Glucose Sensor (FreeStyle Sincere 3 [place]ensor[place] [facility] [place]ications: Benign essential hypertension , Type 2 diabetes mellitus with stage 3a chronic kidney disease, with long-term current use of insulin (HCC) , Type 2 diabetes mellitus with hyperglycemia, with long-term current use of insulin (HCC) Inject 1 Device under the skin every 14 (fourteen) days 6 each 3 01/17/2025 ActiveContinuous Glucose Sensor (Simplera Sensor[place] [facility] [place] sources[place]Start: 01-17-2025 End: 44-08-7504Cxkjifrchn Glucose Sensor (Simplera Sensor[place] [facility] [place]ications: Type 2 diabetes mellitus with stage [...] 01/17/2025 02/16/2025 ActiveContinuous Glucose Sensor (Simplera System[place] [facility] [place] sources)Start: 01-17-2025 End: 89-07-7419Pvumjsegcr Glucose Sensor (Simplera System[place] [facility] [place]ications: Type 2 diabetes mellitus with stage 3a chronic kidney disease, with long-term current use of insulin (HCC) , Type 2 diabetes mellitus with hyperglycemia, with long-term current use of insulin (HCC) 1 Device Daily Please use device system approved by insurance 1 each 01/17/2025 01/17/2026 Active0.5 ml dulaglutide 1.5 mg/ml auto-injector (2 sources)GLP-1 Receptor AgonistStart: 03-15-2024 End: 39-85-3048fpykrj 0.75 mg by subcutaneous injection every weekDulaglutide (Trulicity) 0.75 MG/0.5ML solution auto-injector Indications: Type 2 diabetes mellitus with stage 3a chronic kidney disease, without long-term current use of insulin (HCC) ([facility]) , Morbid obesity due to excess calories ([facility]) Inject 0.75 mg under the skin 1 (one) time per week 2 mL 03/15/2024 06/13/2024 Active glipiZIDE 5 mg oral tablet (12 sources)SulfonylureaStart: 01-15-2024 End: 77-16-2194xmzclACUW (Glucotrol) 5 MG tablet Indications: Type 2 diabetes mellitus with stage 3a chronic kidney disease, without long-term current use of insulin (HCC) ([facility]) Take 2 tablets in the morning and 1 tablet in the evening. 90 tablet 2 01/15/2024 03/15/2024 Discontinued (Therapy completed) Start: 78-59-3423ckthiTVYV (Glucotrol) 5 MG tablet Indications: Type 2 diabetes mellitus with stage 3a chronic kidney disease, without long-term current use of insulin ([facility]) ([facility]) Take 2 tablets in the morning and 1 tablet in the evening. 90 tablet 2 10/23/2023 Activelevothyroxine sodium 0.075 mg oral tablet (20 sources)l-ThyroxineStart: 01-15-2024 End: 32-56-7681osde 1 tablet by mouth before mealtimelevothyroxine (Synthroid, Levoxyl) 75 MCG tablet Indications: Acquired hypothyroidism Take 1 tablet(75 mcg) by mouth in the morning. Take before meals. 30 tablet 11 02/04/2024 Active Start: 01-09-2023 End: 22-92-9399kqqz 1 tablet by mouth before mealtimelevothyroxine (Synthroid, Levoxyl) 75 MCG tablet Indications: Acquired hypothyroidism ([facility]/HCC) Take 1 tablet (75 mcg) by mouth in the morning. Take before meals. 30 tablet 11 01/09/2023 Activelosartan potassium 100 mg oral tablet (20 sources)Angiotensin 2 Receptor BlockerStart: 01-17-2025 End: 56-47-9889kcww 1 tablet by mouth once dailylosartan (Cozaar) 100 MG tablet Indications: Benign essential hypertension Take 1 tablet (100 mg) by mouth Daily 30 tablet 2 02/09/2025 05/10/2025 ActiveStart: 03-25-2025 End: 75-35-8732afib 1 tablet by mouth once dailylosartan (Cozaar) 100 MG tablet Indications: Benign essential hypertension Take 1 tablet (100 mg) by mouth Daily 30 tablet 2 10/05/2024 ActiveStart: 01-15-2024 End: 73-70-7157ssik 1 tablet by mouth once dailylosartan (Cozaar) 100 MG tablet Indications: Benign essential hypertension (CMS/HCC) Take 1 tablet (100 mg) by mouth Daily 30 tablet 2 03/15/2024 06/13/2024 ActiveStart: 10-08-2023 End: 87-96-5717brjk 1 tablet by mouth once dailylosartan (Cozaar) 100 MG tablet Indications: Benign essential hypertension (CMS/HCC) Take 1 tablet (100 mg) by mouth Daily 30 tablet 2 10/08/2023 ActivemetFORMIN hydrochloride 1000 mg oral tablet (20 sources)BiguanideStart: 01-17-2025 End: 46-99-4631hocu 1 tablet by mouth in the morningmetFORMIN (Glucophage) 1000 MG tablet Indications: Type 2 diabetes mellitus with stage 2 chronic kidney disease, without long-term current use of insulin (HCC) Take 1 tablet (1,000 mg) by mouth in the morning and 1 tablet (1,000 mg) in the evening. Take with meals. 60 tablet 2 02/09/2025 05/10/2025ctiveStart: 07-06-2024 End: 58-18-8272clkc 1 tablet by mouth in the morningmetFORMIN (Glucophage) 1000 MG tablet Indications: Type 2 diabetes mellitus with stage 2 chronic kidney disease, without long-term current use of insulin (HCC) Take 1 tablet (1,000 mg) by mouth in the morning and 1 tablet (1,000 mg) in the evening. Take with meals. 60 tablet 2 10/05/2024 ActiveStart: 01-15-2024 End: 15-45-5249qseh 1 tablet by mouth in the morningmetFORMIN (Glucophage) 1000 MG tablet Indications: Type 2 diabetes mellitus with stage 3a chronic kidney disease, without long-term current use of insulin (HCC) (CMS/HCC) Take 1 tablet (1,000 mg) by mouth in the morning and 1 tablet (1,000 mg) in the evening. Take with meals. 60 tablet 2 ActiveStart: 10-08-2023 End: 07-61-6675nace 1 tablet by mouth in the morningmetFORMIN [...] oral tablet (20 sources)beta-Adrenergic BlockerStart: 01-17-2025 End: 98-91-7333budx 1 tablet by mouth in the morningmetoprolol tartrate (Lopressor) 50 MG tablet Indications: Benign essential hypertension Take 1 table t (50 mg) by mouth in the morning and 1 tablet (50 mg) before bedtime. 60 tablet 2 02/09/2025 05/10/2025 ActiveStart: 07-06-2024 End: 96-61-0940inqh 1 tablet by mouth in the morningmetoprolol tartrate (Lopressor) 50 MG tablet Indications: Benign essential hypertension Take 1 table t (50 mg) by mouth in the morning and 1 tablet (50 mg) before bedtime. 60 tablet 2 10/05/2024 ActiveStart: 01-15-2024 End: 60-26-4692ctjw 1 tablet by mouth in the morningmetoprolol tartrate (Lopressor) 50 MG tablet Indications: Benign essential hypertension (CMS/HCC) Ta ke 1 tablet (50 mg) by mouth in the morning and 1 tablet (50 mg) before bedtime. 60 tablet 2 03/15/2024 06/13/2024 ActiveStart: 10-08-2023 End: 04-06-4798birw 1 tablet by mouth in the morningmetoprolol [...] (8 sources)Sodium-Glucose Cotransporter 2 InhibitorStart: 01-17-2025 End: 55-60-7038hfdw 1 tablet by mouth once dailyempagliflozin (Jardiance) 25 MG Indications: Type 2 diabetes mellitus with stage 3a chronic kidney disease, without long-term current use of insulin (HCC) Take 1 tablet (25 mg) by mouth Daily 30 tablet 2 01/17/2025 02/09/2025 Discontinued (Side effects)Start: 07-06-2024 End: 81-90-8925twrg 1 tablet by mouth once dailyempagliflozin (Jardiance) 25 MG Indications: Type 2 diabetes mellitus with stage 3a chronic kidney disease, without long-term current use of insulin (HCC) Take 1 tablet (25 mg) by mouth Daily 30 tablet 2 07/06/2024 Active3 ml insulin glargine 100 unt/ml pen injector (7 sources)Insulin AnalogStart: 02-09-2025 End: 55-06-3200mxagrod glargine (Basaglar KwikPen) 100 UNIT/ML pen Indications: Benign essential hypertension , Type 2 diabetes mellitus with hyperglycemia, with long-term current use of insulin (HCC) Inject 20 Units under the skin Daily 6 mL 02/09/2025 02/09/2025 DiscontinuedStart: 45-83-0045Euyoxkfs KwikPen 100 UNIT/ML pen Indications: Benign essential hypertension , Type 2 diabetes [facility] with stage 3a chronic kidney disease, with long-term current use of insulin (HCC) , Type 2 diabetes mellitus with hyperglycemia, with long-term current use of insulin (HCC) INJECT 20 UNITS SUBCUTANEOUSLY (UNDER THE SKIN) DAILY 15 mL 02/09/2025 ActiveStart: 01-17-2025 End: 79-46-0387jvisigx glargine (Basaglar KwikPen) 100 UNIT/ML pen Indications: [...] (1 source)Tachycardia, unspecified; Translations: [TACHYCARDIA, UNSPECIFIED] Onset: 92-48-0998IpbslmbrMtjjkgg kidney disease (20 sources)Chronic kidney disease stage 3A ; Translations: [Stage 3a chronic kidney disease (HCC)]Onset: 553847-02-1667ZkakgmpPngcyov kidney disease (1 source)Chronic kidney disease; Translations: [CHRONIC KIDNEY DISEASE STAGE 3A]Onset: 45-98-1199Mghxjgqliftoo of surgical procedures or medical care (20 sources)Postgastric surgery syndrome; 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]Onset: 503882-67-0358IrafntmvDrwujdxg mellitus with complications (20 sources)Type 2 diabetes mellitus with diabetic chronic kidney disease; Translations: [Chronic kidney disease due to type 2 diabetes mellitus]Onset: 14-93-9641KkhomeaKkddgcii mellitus without complication (1 source)Type 2 diabetes mellitus without complications; Translations: [TYPE 2 DIABETES MELLITUS WITHOUT COMPLICATIONS]Onset: 35-01-1659CxesbhgJcgabfldc of lipid metabolism (20 sources)Hyperlipidemia, unspecified; Translations: [Mixed hyperlipidemia] Onset: 453593-57-7358AgdkgoxUgmpiuzxz hypertension (20 sources)Essential (primary) hypertension; Translations: [Benign essential hypertension]Onset: 773249-54-5056OpxdqyiPssscgipuzfh with complications and secondary hypertension (20 sources)Hypertensive chronic kidney disease with stage 1 through stage 4 chronic kidney disease, or unspecified chronic kidney disease; Translations: [Hypertensive renal disease]Onset: 83-07-9459LxsmxqiIgllcst and fatigue (20 sources)Chronic fatigue, unspecified; Translations: [Chronic fatigue syndrome]Onset: 07-04-2022 Resolved: 32-90-5446HhregsfQjbde aftercare (1 source)nursing home (current) use of aspirin; Translations: [[facility] (CURRENT) USE OF ASPIRIN]Onset: 47-66-0444CevnouexRbhbv aftercare (2 sources)Polypharmacy ; Translations: [Other alf (current) drug therapy] 62-45-5173QwohptvmMhwvl aftercare (1 source)nursing home (current) use of oral hypoglycemic drugs; Translations: [[facility] (CURRENT) USE OF ORAL HYPOGLYCEMIC DRUGS]Onset: 33-28-6485Wpcfb connective tissue disease (20 sources)Myalgia caused by statin; Translations: [Myalgia, unspecified site] Onset: 431545-18-1970MylcgulhJqavj hereditary and degenerative nervous system conditions (20 sources)Restless legs; Translations: [Restless legs syndrome]Onset: 580983-92-6918YjeabdqNcnjs nervous system disorders (1 source)Encephalopathy, unspecified; Translations: [ENCEPHALOPATHY, UNSPECIFIED]Onset: 29-17-9628LhtxhuqPohiq nutritional; endocrine; and metabolic disorders (20 sources)Morbid obesity; Translations: [Morbid (severe) obesity due to excess calories]Onset: 298745-78-3250VqzmvjeUtvly nutritional; endocrine; and metabolic disorders (4 sources)Body mass index 30+ - obesity; Translations: [Body mass index (BMI) 35.0-35.9, adult]26-17-8834CynjufsRsfmrcidf (except that caused by tuberculosis or sexually transmitted disease) (2 sources)Right lower zone pneumonia; Translations: [Pneumonia, unspecified organism]35-77-0281ZfanwsxhWroufemn codes; unclassified (2 sources)Altered mental status, unspecified; Translations: [ALTERED MENTAL STATUS, UNSPECIFIED]Onset: 96-45-9943CbtafkwyLhnoweby codes; unclassified (1 source)Acquired absence of other specified parts of digestive tract; Translations: [ACQUIRED ABSENCE OF OTHER SPECIFIED PARTS OF DIGESTIVE TRACT] Onset: 59-84-5785FqulyppxCaatmhgb codes; unclassified (1 source)Pain, unspecified; Translations: [Pain, unspecified]Onset: 08-01-2024 EpisodicRespiratory failure; insufficiency; arrest (adult) (1 source)Acute respiratory failure with hypoxia; Translations: [ACUTE RESPIRATORY FAILURE WITH HYPOXIA]Onset: 41-78-0584CmttpgqkPennbzu disorders (20 sources)Hypothyroidism, unspecified; Translations: [Thyrotoxicosis with diffuse goiter without thyrotoxic crisis or storm]Onset: ChronicUnclassified (1 source)AMS, LETHARGYOnset: 32-21-7177Yfwucsuijuov (1 source)AMSOnset: 05-23-2018 Past or Other Problems Problem ClassificationProblemDateDocumented DateEpisodic/Chronic Administrative/social admission (2 sources)Advance directive discussed with patient; Translations: [Other specified counseling]32-28-7708CuadhrjdEyiandmafwziu symptoms and ill-defined conditions (2 sources)Microalbuminuria; Translations: [Proteinuria, unspecified]12-08-2023 EpisodicOther diseases of veins and lymphatics (20 sources)Vascular insufficiency; Translations: [Venous insufficiency (chronic) (peripheral)]Onset: 333539-01-9686ZmjdwxdvDamqc nutritional; endocrine; and metabolic disorders (20 sources)Severe obesity; Translations: [Class 2 severe obesity due to excess calories with serious comorbidity and body mass index (BMI) of 35.0 to 35.9 in adult]Onset: 10-22-2023 Resolved: 658553-43-1194QcdeoizPmyua screening for suspected conditions (not mental disorders or infectious disease) (10 sources)Patient encounter status; Translations: [Encounter for screening for malignant neoplasm of colon]57-07-2483Yymreqzj Results Test NameValueInterpretationReference RangeFacilityMLR HEMOGLOBIN A1Con 43-11-6974Lvinaif [Mass/Vol]217 mg/dLNOMT JwixfmwbekIsW6r (Bld) [Mass fraction] 9.2 %High4.5 - 6.2 %NOMS HealthcareComment on above:ADA RECOMMENDED LIMIT 4.0 - 6.0 ADA THERAPEUTIC TARGET < 7.0 ACTION SUGGESTED > 7.0 No Panel Informationon 52-14-9658Ngyqqhlnvvxibs and review of laboratory results AbnormalNOMS HealthcareCLINISYNCNOMS HealthcareTBH MICROALB CREAT RATIO RANDOMon 52-66-4580DVCJEKVVAJ URINE OKCAFR60.05 mg/dL20.00 - 300.00 mg/dLNOMS Healthcare MICROALBUM CREATININE RATIO UR60.3 mg/gHigh0.0 - 29.9 mg/gNOMS HealthcareComment on above:NO MICROALBUMINURIA 0-29 MG/G CLINICAL MICROALBUMINURIA 30-300 MG/G MACROALBUMINURIA >300 MG/G MICROALBUMIN URINE RANDOM2.9 mg/dLNINF - 30.0 mg/dLMissouri Southern HealthcareMLR HEMOGLOBIN A1Con 53-84-5273Gdejlaq [Mass/Vol]272 mg/dLMissouri Southern HealthcareHbA1c (Bld) [Mass fraction]11.1 %High4.5 - 6.2 %[facility] HealthcareComment on above:ADA RECOMMENDED LIMIT 4.0 - 6.0 ADA THERAPEUTIC TARGET < 7.0 ACTION SUGGESTED > 7.0 Interpretation and review of laboratory resultsAbnoGeisinger St. Luke's HospitalCLINISYNCHI [facility] THYROXINE (T4) FREEon 75-10-5396Swyw T4 [Mass/Vol]1.35 ng/dL 0.76 - 1.46 ng/dLSt. Joseph Medical CenterINISYNPrisma Health Ocone[facility] THYROXINE (T4) FREE on 82-68-4496Hnll T4 [Mass/Vol]1.26 ng/dL0.76 - 1.46 ng/dLMissouri Southern Healthcare CLINISYNCMissouri Southern HealthcareLaboratory - Chemistry and Chemistry - challengeon 45-94-7599Krpckjj DL <= 20 mg/L (U) [Mass/Vol]10 mg/dLMissouri Southern Healthcare Albumin/Creatinine DL <= 1.0 mg/L (U) [Ratio]100NOEllett Memorial HospitalCreatinine (U) [Mass/Vol]0.1 mg/dLMissouri Southern HealthcareNo Panel Informationon 12-08-2023 Interpretation and review of laboratory resultsNoPrisma Health Baptist [facility] HealthcareGLYCOHEMOGLOBIN A1Con 10-49-5686QCN RECOMMENDATIONSEE BELOWBerger HospitalComhelen devos children's hospital on above:Result Comment: ADA RECOMMENDED LIMIT 4.0 - 6.0 ADA THERAPEUTIC TARGET < 7.0 ACTION SUGGESTED > 7.0Performed By: #### A1C #### [facility] [address] [address] [address] Veronica FloydGlucose [Mass/Vol]160 mg/dLACMC Healthcare System on above:Performed By: #### A1C #### [facility] [address] [address] [address] Veronica FloydHbA1c (Bld) [Mass fraction]7.2 %Critically high4.5-6.2The [facility] JacksonComment on above:Performed By: #### A1C #### [facility] [address] [address] [address] Veronica Almonte T3on 77-82-4596MRMV T32.59 pg/mlLNormal2.18-3.98The [facility] JacksonComhelen devos children's hospital on above:Performed By: #### TSH, FT3 #### [facility] [address] [address] [address] Veronica Almonte T4on 60-38-9665Ysff T4 [Mass/Vol]1.25 ng/dLNormal0.76-1.46 The [facility] JacksonComhelen devos [facility] on above:Performed By: #### FT4 #### [facility] [address] [place] [address] Dr. Veronica CaroHon 41-73-6968ZQU1.607 uIU/mLNormal0.358-3.740The [facility] on above:Performed By: #### TSH, FT3 #### [facility] [address] [place] [address] Dr. Veronica FloydGLYCOHEMOGLOBIN A1Con 97-18-5964KZB RECOMMENDATIONSEE BELOWNormal The [facility] JacksonComhelen devos [facility] on above:Result Comment: ADA RECOMMENDED LIMIT 4.0 - 6.0 ADA THERAPEUTIC TARGET < 7.0 ACTION SUGGESTED > 7.0Performed By: #### A1C #### [facility] [address] [place] [address] Dr. Veronica FloydGlucose [Mass/Vol]154 mg/dLNormDayton Children's Hospital on above:Performed By: #### A1C #### [facility] [address] [place] [address] Dr. Veronica FloydHbA1c (Bld) [Mass fraction]7.0 %Critically high4.5-6.2The [facility] on above:Performed By: #### A1C #### [facility] [address] [place] [address] Dr. Veronica FloydLIPID PROFILEon 46-15-6337VGGS-HDL RATIO NORMSEE BELOWNormalThe Ephrata HospitalComment on above:Result Comment: 3.3 - 4.4 LOW RISK 4.4 - 7.1 AVERAGE RISK 7.1 - 11.0 MODERATE RISK >11.0 HIGH RISKPerformed By: #### CMP, LIPID #### [facility] [address] [address] [address] Veronica FloydCholesterol [Mass/Vol]173 mg/dLNormal<=200The [facility] Comment on above:Performed By: #### CMP, LIPID #### [facility] [address] [address] [address] Veronica FloydCholesterol in HDL [Mass/Vol]44 mg/jXNeipmg55-91Ano [facility] JacksonComment on above:Performed By: #### CMP, LIPID #### [facility] [address] [place] [address] Dr. Veronica FloydCholesterol in LDL [Mass/Vol]114.6 mg/dLBerger HospitalComment on above:Performed By: #### CMP, LIPID #### [facility] [address] [place] [address] Dr. Veronica Hodgesestertrudi.total/Cholesterol in HDL [Mass ratio]3.9 {ratio} NormalVeterans Health AdministrationComment on above:Performed By: #### CMP, LIPID #### [facility] [address] [place] [address] Dr. Veronica FloydHDL NORMAL> or = 60 mg/dl - LOW CARDIOVASCULAR RISK <40 mg/dl - HIGH CARDIOVASCULAR RISKBerger HospitalComment on above:Performed By: #### CMP, LIPID #### [facility] [address] [place] [address] Dr. Veronica FloydLDL CALC NORMALSEE BELOWBerger HospitalComment on above:Result Comment: <100 mg/dl OPTIMAL 100 - 129 mg/dl NEAR OR ABOVE OPTIMAL 130 - 159 mg/dl BORDERLINE HIGH 160 - 189 mg/dl HIGH >190 mg/dl VERY HIGH Performed By: #### CMP, LIPID #### [facility] [address] [place] [address] Dr. Veronica FloydTriglyceride [Mass/Vol]72 mg/dLNormal<=150The [facility] Comment on above:Performed By: #### CMP, LIPID #### [facility] [address] [place] [address] Dr. Veronica FloydVLDL CALC14.4 mg/dLNormalThe [facility] JacksonComment on above: Performed By: #### CMP, LIPID #### [facility] [address] [place] [address] Dr. Veronica FloydPROF 14(COMP METB)on 04-94-9280Uetbdyz [Mass/Vol]4.0 g/dLNormal 3.4-5.0The [facility] JacksonComment on above:Performed By: #### CMP, LIPID #### [facility] [address] [place] [address] Dr. Veronica FloydAlbumin/Globulin [Mass ratio]1.0 {ratio}NormalThe [facility] – JacksonComment on above:Performed By: #### CMP, LIPID #### [facility] [address] [place] [address] Dr. Veronica Quach [Catalytic activity/Vol]53 U/KEencvv69-001Jwq [facility] JacksonComment on above:Performed By: #### CMP, LIPID #### [facility] [address] [place] [address] Dr. Veronica Nieves [Catalytic activity/Vol]45 U/EVkeudp67-72Wfy [facility] JacksonComment on above:Performed By: #### CMP, LIPID #### [facility] [address] [place] [address] Dr. Veronica Araya gap [Moles/Vol]9.8 mmol/LNormalThe [facility] JacksonComment on above:Performed By: #### CMP, LIPID #### [facility] [address] [place] [address] Dr. Veronica Biggs [Catalytic activity/Vol]23 U/QTiqtiu07-62Dgl [facility] JacksonComment on above:Performed By: #### CMP, LIPID #### [facility] [address] [place] [address] Dr. Yilan ChangBilirubin [Mass/Vol]0.3 mg/dLNormal0.2-1.0The [facility] Comment on above:Performed By: #### CMP, LIPID #### [facility] [address] [place] [address] Dr. Veronica FloydCalcium [Mass/Vol]9.5 mg/dLNormal8.5-10.1The [facility] Comment on above:Performed By: #### CMP, LIPID #### [facility] [address] [address] [address] Veronica FloydChloride [Moles/Vol]101 mmol/TDynvqw61-691Fxh [facility] Comment on above:Performed By: #### CMP, LIPID #### [facility] [address] [place] [address] Dr. Veronica FloydCO2 [Moles/Vol]28.4 mmol/LSxoswx86.0-32.0[facility] Comment on above:Performed By: #### CMP, LIPID #### [facility] [address] [place] [address] Dr. Veronica FloydCreatinine [Mass/Vol]0.90 mg/dLNormal0.55-1.02[facility] AdministrationComment on above:Performed By: #### CMP, LIPID #### [facility] [address] [place] [address] Dr. Veronica NealGFR-AF BOLIVIAN>60Normal>=60The [facility] JacksonComment on above:Performed By: #### CMP, LIPID #### [facility] [address] [place] [address] Dr. Veronica NealGFR-NON AF BOLIVIAN>60Normal>=60The [facility] JacksonComment on above:Performed By: #### CMP, LIPID #### [facility] [address] [place] [address] Dr. Veronica FloydGlobulin (S) [Mass/Vol]4.1 g/dLNormalThe [facility] JacksonComment on above:Performed By: #### CMP, LIPID #### [facility] [address] [place] [address] Dr. Veronica FloydGlucose [Mass/Vol]136 mg/dLCritically laij03-213H[facility] Hospital Daytonment on above:Performed By: #### CMP, LIPID #### [facility] [address] [address] [address] Veronica FloydPotassium [Moles/Vol]4.2 mmol/LNormal3.5-5.1The [facility] Comment on above:Performed By: #### CMP, LIPID #### [facility] [address] [address] [address] Veronica FloydProtein [Mass/Vol]8.1 g/dLNormal6.4-8.2The [facility] Comment on above:Performed By: #### CMP, LIPID #### [facility] [address] [place] [address] Dr. Veronica FloydSodium [Moles/Vol]135 mmol/LCritically yti850-811Tne [facility] JacksonComment on above:Performed By: #### CMP, LIPID #### [facility] [address] [place] [address] Dr. Veronica FloydUrea nitrogen [Mass/Vol]18.0 mg/dLNormal7.0-18.0The [facility] JacksonComment on above:Performed By: #### CMP, LIPID #### [facility] [address] [address] [address] Veronica FloydUrea nitrogen/Creatinine [Mass ratio]20.0 mg/mgNormSouthwest General Health CenterComment on above:Performed By: #### CMP, LIPID #### [facility] [address] [place] [address] Dr. Veronica FloydGLYCOHEMOGLOBIN A1Con 25-85-6419JZF RECOMMENDATIONSEE BELOWNoOhio Valley HospitalComhelen devos [facility] on above:Result Comment: ADA RECOMMENDED LIMIT 4.0 - 6.0 ADA THERAPEUTIC TARGET < 7.0 ACTION SUGGESTED > 7.0Performed By: #### A1C #### [facility] [address] [place] [address] Dr. Veronica FloydGlucose [Mass/Vol]137 mg/dLNormalThe [facility]rata HospitalComment on above:Performed By: #### A1C #### [facility] [address] [place], [place] [address] Dr. Veronica FloydHbA1c (Bld) [Mass fraction]6.4 %Critically high4.5-6.2The [facility] JacksonComment on above:Performed By: #### A1C #### [facility] [address] [address] [address] Veronica FaustinC METABOLIC PANELon 96-83-4356Tzpqpeu mass conc9.5 mg/dL Normal8.6-10.3The [facility] HospitalComment on above:Order Comment: No: Do not add to previous drawPerformed By: #### 68705 #### [facility] [address] [place] [address], USAChloride molar paew764 mmol/IMcgifb18-264Jqo [facility] HospitalComment on above:Order Comment: No: Do not add to previous drawPerformed By: #### 13553 #### [facility] [address] [place] [address], USACO2 molar conc30 mmol/BSvgebv81-35Qfv [facility] HospitalComment on above:Order Comment: No: Do not add to previous draw Performed By: #### 74270 #### [facility] [address] [place] [address], USACreatinine mass conc1.14 mg/dLNormal0.60-1.20The [facility] HospitalComment on above:Order Comment: No: Do not add to previous drawPerformed By: #### 24525 #### [facility] [address] [place] [address], USAGFR/1.73 sq M predicted among blacks MDRD vol rate/area (S/P/Bld)59 ml/min/1.73sq mAbnormal>60The [facility] Comment on above:Order Comment: No: Do not add to previous drawPerformed By: #### 93040 #### [facility] [address] [place] [address], USAGFR/1.73 sq M predicted among non-blacks MDRD vol rate/area (S/P/Bld)49 ml/min/1.73sq mAbnormal>60The [facility] Comment on above:Order Comment: No: Do not add to previous drawPerformed By: #### 05356 #### [facility] [address] [place] [address], USAGlucose mass ghnl472 mg/aHFugy94-459Fnt [facility] HospitalComment on above:Order Comment: No: Do not add to previous drawPerformed By: #### 99088 #### [facility] [address] [place] [address], USAPotassium molar conc3.8 mmol/LNormal3.5-5.1The [facility] HospitalComment on above:Order Comment: No: Do not add to previous drawPerformed By: #### 64488 #### [facility] [address] [place] [address], USASodium molar dkde298 mmol/LGgbnje960-856Tmq [facility] HospitalComment on above:Order Comment: No: Do not add to previous drawPerformed By: #### 08576 #### [facility] [address] [place] [address], USAUrea nitrogen mass conc28 mg/dLHigh7-25The [facility] HospitalComment on above:Order Comment: No: Do not add to previous drawPerformed By: #### 90103 #### [facility] [address] [place] [address], USACBC COMPLETE BLOOD COUNTon 97-90-3551Ysgdehgoyay distribution width Ratio (RBC)14.6 %Hzkfah71.5-15.0The [facility] HospitalComment on above:Order Comment: No: Do not add to previous draw Performed By: #### 27735 #### [facility] [address] [place] [address], USAHematocrit Volume Fraction (Bld)39.7 %Zwklpy12.0-45.0The [facility] HospitalComment on above:Order Comment: No: Do not add to previous drawPerformed By: #### 57459 #### [facility] [address] [place] [address], [facility] MEDICAL CENTERHemoglobin mass conc (Bld)12.8 g/wXZimgnb41.0-15.0The [facility] HospitalComment on above:Order Comment: No: Do not add to previous drawPerformed By: #### 46359 #### [facility] [address] [facility] [place] [address], [facility] CITYH Entitic mass (RBC)27.9 qeNvvnob11.0-33.0The [facility] HospitalComment on above:Order Comment: No: Do not add to previous drawPerformed By: #### 35690 #### [facility] [address] [place] [address], [facility] MEDICAL CENTERMCHC mass conc (RBC)32.2 g/sOVvnxjs99.0-35.0The [facility] HospitalComment on above:Order Comment: No: Do not add to previous drawPerformed By: #### 02774 #### [facility] [address] [facility] [place] [address], [facility] CITYV Entitic volume (RBC)86.7 tMGxunkr96.0-98.0The [facility] HospitalComment on above:Order Comment: No: Do not add to previous drawPerformed By: #### 42615 #### [facility] [address] [facility] [place] [address], USANucleated RBC/100 WBC Ratio (Bld)0 %Normal0-0The [facility] HospitalComment on above:Order Comment: No: Do not add to previous drawPerformed By: #### 49967 #### [facility] [address] [place] [address], USAPLAT ZXM097 10*3/mWAixaeb652-520Noy [facility] HospitalComment on above:Order Comment: No: Do not add to previous draw Performed By: #### 88436 #### [facility] [address] [place] [address], USARBC #/vol (Bld)4.58 10*6/uLNormal3.80-5.00The [facility] HospitalComment on above:Order Comment: No: Do not add to previous drawPerformed By: #### 11422 #### [facility] [address] [place] [address], USAWBC #/vol (Bld)5.70 10*3/uLNormal4.00-10.60The [facility] HospitalComment on above:Order Comment: No: Do not add to previous drawPerformed By: #### 46827 #### [facility] [address] [place] [address], USAIMMUNOGLOB BLon 22-31-6200UhY mass jgrr192 mg/dLNormal 60-413The [facility] HospitalComment on above:Order Comment: No: Do not add to previous drawPerformed By: #### 12689 #### [facility] [address] [place] [address], USAIgG mass eweo3078 mg/dRMxlsdu732-0634Amj [facility] HospitalComment on above:Order Comment: No: Do not add to previous drawPerformed By: #### 22941 #### [facility] [address] [place] [address], USAIgM mass itrh025 mg/pGIsslpr18-294Rpb [facility] HospitalComment on above:Order Comment: No: Do not add to previous draw Performed By: #### 38044 #### [facility] [address] [place] [address], USAIMMUNOGLOBULIN Andrea 16-60-7863LGWgzawfKvkLicking Memorial HospitalComment on above:Order Comment: No: Do not add to previous drawIMMUNOGLOBULIN E230 IU/mLHigh<101The [facility] Comment on above:Order Comment: No: Do not add to previous drawPOC GLUCOSE LABon 81-43-3193Ohminzd mass gxjs426 mg/mILzcc52-731Edx [facility] HospitalComment on above:Performed By: #### 47247 #### [facility] [address] [place] [address], USAGlucose mass ehhe846 mg/uFIccd10-466Djb [facility] HospitalComment on above:Performed By: #### 88367 #### [facility] [address] [place] [address], USAGlucose mass zfbl813 mg/fGFlmz99-281Jkq [facility] HospitalComment on above:Performed By: #### 04178 #### [facility] [address] [place] [address], USAGlucose mass rnzl114 mg/gHMiom60-085Nkp [facility] HospitalComment on above:Performed By: #### 61482 #### [facility] [address] [place] [address], USABASIC METABOLIC PANELon 62-47-5044Xkzmoyb mass conc9.4 mg/dLNormal8.6-10.3The [facility] HospitalComment on above:Order Comment: No: Do not add to previous drawPerformed By: #### 66046 #### [facility] [address] [place] [address], USAChloride molar conc97 mmol/BCno25-996Sex [facility] HospitalComment on above:Order Comment: No: Do not add to previous drawPerformed By: #### 26592 #### [facility] [address] [place] [address], USACO2 molar conc30 mmol/EFehyyy57-38Ydz [facility] HospitalComment on above:Order Comment: No: Do not add to previous draw Performed By: #### 65599 #### [facility] [address] [place] [address], USACreatinine mass conc1.15 mg/dLNormal0.60-1.20The [facility] HospitalComment on above:Order Comment: No: Do not add to previous drawPerformed By: #### 10400 #### [facility] [address] [place] [address], USAGFR/1.73 sq M predicted among blacks MDRD vol rate/area (S/P/Bld)59 ml/min/1.73sq mAbnormal>60The [facility] Comment on above:Order Comment: No: Do not add to previous drawPerformed By: #### 74823 #### [facility] [address] [place] [address], USAGFR/1.73 sq M predicted among non-blacks MDRD vol rate/area (S/P/Bld)49 ml/min/1.73sq mAbnormal>60The [facility] Comment on above:Order Comment: No: Do not add to previous drawPerformed By: #### 67348 #### [facility] [address] [place] [address], USAGlucose mass uthc602 mg/uUQptk43-315Hvp [facility] HospitalComment on above:Order Comment: No: Do not add to previous drawPerformed By: #### 02958 #### [facility] [address] [place] [address], USAPotassium molar conc2.9 mmol/LLow3.5-5.1The [facility] HospitalComment on above:Order Comment: No: Do not add to previous drawPerformed By: #### 19142 #### [facility] [address] [place] [address], USASodium molar tmok809 mmol/RJlvbji020-037Ouy [facility] HospitalComment on above:Order Comment: No: Do not add to previous drawPerformed By: #### 82165 #### [facility] [address] [place] [address], USAUrea nitrogen mass conc24 mg/dLNormal7-25The [facility] HospitalComment on above:Order Comment: No: Do not add to previous drawPerformed By: #### 68197 #### [facility] [address] [place] [address], USAHEMOGLOBIN A1Con 71-79-6276Rmcarlygbt A1c/Hemoglobin.total mass fraction (Bld)7.1 %High4.0-6.0The [facility] Comment on above:Order Comment: Yes: Add to Previous draw if ablePerformed By: #### 42959 #### [facility] [address] [facility] [place] [address], USAHemoglobin A1c/Hemoglobin.total mass fraction (Bld)157 mg/qZVyjd60-245Uvz [facility] HospitalComment on above:Order Comment: Yes: Add to Previous draw if ablePerformed By: #### 60077 #### [facility] [address] [facility] [place] [address], USAMAGNESIUM BLOODon 22-52-4897Eensbfwrc mass conc2.5 mg/dL Normal1.9-2.7The [facility] HospitalComment on above:Performed By: #### 67686 #### [facility] [address] [place] [address], USAMISCELLANEOUS PATHon 39-77-8804GYFSGEDmaxyvi faxed to ordering physician and sent to [facility] Comment on above:Order Comment: [facility]# [id number] ALLERGEN, FOOD, ALPHA-Gal PANEL CPT 44287 I2Igizzg Comment: Test performed at [facility], [address] [place] [address]. Results faxed to Dr. Arroyo at [phone] By: #### 40677 #### [facility] [address] [place] [address], USAPOC GLUCOSE LABon 82-89-0022Buaaftm mass mrxi107 mg/dLHigh 70-100The [facility] HospitalComment on above:Performed By: #### 47452 #### [facility] [address] [place] [address], USAGlucose mass zddw082 mg/lNUevo88-111Oqq [facility] HospitalComment on above:Performed By: #### 80975 #### [facility] [address] [place] [address], USAGlucose mass rgzw367 mg/uMInrx73-781Lij [facility] HospitalComment on above:Performed By: #### 50441 #### [facility] [address] [place] [address], USAGlucose mass exiz340 mg/oBHktv41-820Sxh [facility] HospitalComment on above:Performed By: #### 95316 #### [facility] [address] [place] [address], USABASIC METABOLIC PANELon 64-58-4938Gtsbeia mass conc9.5 mg/dLNormal8.6-10.3The [facility] HospitalComment on above:Order Comment: No: Do not add to previous drawPerformed By: #### 10128 #### [facility] [address] [place] [address], USAChloride molar conc95 mmol/IAnp10-904Aqz [facility] HospitalComment on above:Order Comment: No: Do not add to previous drawPerformed By: #### 49023 #### [facility] [address] [place] [address], USACO2 molar conc30 mmol/RUrrmcj72-75Ewt [facility] HospitalComment on above:Order Comment: No: Do not add to previous draw Performed By: #### 80140 #### [facility] [address] [place] [address], USACreatinine mass conc0.78 mg/dLNormal0.60-1.20The [facility] HospitalComment on above:Order Comment: No: Do not add to previous drawPerformed By: #### 80794 #### [facility] [address] [place] [address], USAGFR/1.73 sq M predicted among blacks MDRD vol rate/area (S/P/Bld)mL/min/{1.73_m2}Normal>60The [facility] HospitalComment on above:Order Comment: No: Do not add to previous drawPerformed By: #### 69654 #### [facility] [address] [place] [address], USAGFR/1.73 sq M predicted among non-blacks MDRD vol rate/area (S/P/Bld)mL/min/{1.73_m2}Normal>60The [facility] HospitalComment on above:Order Comment: No: Do not add to previous drawPerformed By: #### 05426 #### [facility] [address] [place] [address], USAGlucose mass qasr539 mg/eXLvzx05-015Xut [facility] HospitalComment on above:Order Comment: No: Do not add to previous drawPerformed By: #### 86583 #### [facility] [address] [place] [address], USAPotassium molar conc3.1 mmol/LLow3.5-5.1The [facility] HospitalComment on above:Order Comment: No: Do not add to previous drawPerformed By: #### 24953 #### [facility] [address] [place] [address], USASodium molar cvik229 mmol/GUfmkll479-227Nai [facility] HospitalComment on above:Order Comment: No: Do not add to previous drawPerformed By: #### 51922 #### [facility] [address] [place] [address], USAUrea nitrogen mass conc16 mg/dLNormal7-25The [facility] HospitalComment on above:Order Comment: No: Do not add to previous drawPerformed By: #### 03909 #### [facility] [address] [place] [address], USACBC W/DIFFon 13-69-0683PZM BASOPHILS0.0 10*3/uLNormal 0.0-0.2The [facility] HospitalComment on above:Order Comment: No: Do not add to previous drawPerformed By: #### 05076, 35533, 68322, 04446 #### [facility] [address] [place] [address], USAABS IMM GRANS0.1 10*3/uLNormal0.0-0.2The [facility] HospitalComment on above:Order Comment: No: Do not add to previous drawPerformed By: #### 82379, 64589, 50078, 84433 #### [facility] [address] [facility] [place] [address], USAABS NEUTROPHILS5.1 10*3/uLNormal1.6-7.6The [facility] HospitalComment on above:Order Comment: No: Do not add to previous drawPerformed By: #### 90305, 46635, 59279, 76501 #### [facility] [address] [place] [address], USABasophils #/vol (Bld)0.5 %Normal0.0-1.0The [facility] HospitalComment on above:Order Comment: No: Do not add to previous drawPerformed By: #### 58155, 97965, 43395, 98857 #### [facility] [address] [place] [address], USAEosinophils #/vol (Bld)0.0 10*3/uLNormal0.0-0.5The [facility] HospitalComment on above:Order Comment: No: Do not add to previous drawPerformed By: #### 10847, 43209, 24366, 31924 #### [facility] [address] [place] [address], USAEosinophils/100 WBC (Bld)0.1 %Normal0.0-6.0The [facility] HospitalComment on above:Order Comment: No: Do not add to previous drawPerformed By: #### 92034, 43068, 05990, 10035 #### [facility] [address] [facility] [place] [address], USAErythrocyte distribution width Ratio (RBC)14.4 %Normal 11.5-15.0The [facility] HospitalComment on above:Order Comment: No: Do not add to previous drawPerformed By: #### 40775, 45399, 00775, 46528 #### [facility] [address] [place] [address], USAHematocrit Volume Fraction (Bld)39.8 %Wvilqk97.0-45.0The [facility] HospitalComment on above:Order Comment: No: Do not add to previous drawPerformed By: #### 95554, 40166, 23135, 76418 #### [facility] [address] [facility] [place] [address], USAHemoglobin mass conc (Bld)13.4 g/gVCivzyr35.0-15.0The [facility] HospitalComment on above:Order Comment: No: Do not add to previous drawPerformed By: #### 59729, 35630, 03188, 09098 #### [facility] [address] [facility] [place] [address], USAIMMATURE GRANS1.6 %High0.0-1.0The [facility] HospitalComment on above:Order Comment: No: Do not add to previous draw Performed By: #### 57195, 77238, 55957, 53330 #### [facility] [address] [place] [address], USALymphocytes #/vol (Bld)1.7 10*3/uLNormal1.2-4.0The [facility] HospitalComment on above:Order Comment: No: Do not add to previous drawPerformed By: #### 20715, 24024, 50976, 53210 #### [facility] [address] [place] [address], USALymphocytes/100 WBC (Bld)22.3 %Gmeqth82.0-45.0The [facility] HospitalComment on above:Order Comment: No: Do not add to previous drawPerformed By: #### 04068, 24447, 99221, 67244 #### [facility] [address] [place] [address], [facility] Entitic mass (RBC)27.7 vnKncqyo74.0-33.0The [facility] HospitalComment on above:Order Comment: No: Do not add to previous drawPerformed By: #### 65414, 17494, 67538, 62913 #### [facility] [address] [place] [address], [facility]HC mass conc (RBC)33.7 g/sPUyerzo17.0-35.0The [facility] HospitalComment on above:Order Comment: No: Do not add to previous drawPerformed By: #### 13239, 82133, 79459, 64927 #### [facility] [address] [place] [address], [facility] Entitic volume (RBC)82.4 rNFvigcu50.0-98.0The [facility] HospitalComment on above:Order Comment: No: Do not add to previous drawPerformed By: #### 42165, 59109, 42029, 64241 #### [facility] [address] [place] [address], USAMonocytes #/vol (Bld)0.7 10*3/uLNormal0.1-1.0The [facility] HospitalComment on above:Order Comment: No: Do not add to previous drawPerformed By: #### 99578, 00363, 71709, 74399 #### [facility] [address] [place] [address], USAMONOS8.7 %Normal5.0-12.0The [facility] HospitalComment on above:Order Comment: No: Do not add to previous drawPerformed By: #### 30075, 10192, 54771, 57418 #### [facility] [address] [place] [address], USANeutrophils/100 WBC (Bld)66.8 %Lfmkmu01.0-72.0The [facility] HospitalComment on above:Order Comment: No: Do not add to previous drawPerformed By: #### 26253, 66997, 40177, 06914 #### [facility] [address] [place] [address], USANucleated RBC/100 WBC Ratio (Bld)0 %Normal0-0The [facility] HospitalComment on above:Order Comment: No: Do not add to previous drawPerformed By: #### 22509, 84313, 00056, 64689 #### [facility] [address] [place] [address], USAPLAT JOQ506 10*3/oFLlncax863-726Fpe [facility] HospitalComment on above:Order Comment: No: Do not add to previous draw Performed By: #### 44071, 92383, 44607, 03998 #### [facility] [address] [place] [address], USARBC #/vol (Bld)4.83 10*6/uLNormal3.80-5.00The [facility] HospitalComment on above:Order Comment: No: Do not add to previous drawPerformed By: #### 80894, 93366, 97349, 25347 #### [facility] [address] [place] [address], [facility] CENTERBC #/vol (Bld)7.70 10*3/uLNormal4.00-1060The [facility] HospitalComment on above:Order Comment: No: Do not add to previous drawPerformed By: #### 05683, 53169, 72614, 94953 #### [facility] [address] [place] [address], USAEEG Reporton [id number] ReportName: Shabana Stallworth [facility] MR#: [id number] Age: 58 Physician: Colt Boggs M.D. Date: From 6:30 on May 30, 2018 until 0630 hours on May 31, 2018 Lab#: Date of : 1960 Patient Type: I NEURODIAGNOSTIC SERVICES REPORT [address] [place], [place] [address] Board of the [place] [employer] Accredited production recorder: Jesse Muir. EEG DURATION: 23:33 and 0 [...] MD Date Trans: 06/01/2018 05:26 Dipak/luis e DN_JN:[id number] cc: Colt Boggs M.D. [address] [place] [address] [facility] [id number] Medical Cleveland Clinic Rehabilitation Hospital, Edwin ShawMAGNESIUM BLOODon 52-44-1874Rgmpmdtqr mass conc2.3 mg/dLNormal1.9-2.7The [facility] HospitalComment on above:Performed By: #### 35819, 60639, 59444, 08535 #### [facility] [address] [place] [address], [facility] CENTERPO GLUCOSE LABon 57-44-0826Hzsehmc mass yhpc109 mg/dLHigh 70-100The [facility] HospitalComment on above:Performed By: #### 66750 #### [facility] [address] [facility] [place] [address], USAGlucose mass [id number] mg/zUGivw35-669Kqq [facility] HospitalComment on above:Performed By: #### [id number] #### [facility] [address] [facility] [place] [place] [address], [place]AGlucose mass zltl096 mg/lGIllu65-210Zmo [facility] HospitalComment on above:Performed By: #### [id number], [id number], [id number], [id number] #### [facility] [address] [place] [address], [place]AGlucose mass [id number] mg/oRBiqf22-030Rto [facility] HospitalComment on above:Performed By: #### [id number], [id number], [id number], [id number] #### [facility] [address] [place] [address], [place]*C DIFF DNA AMPLIFICATIONon 05-31-2018*C DIFF DNA AMPLIFICATIONClinical Report: (D) Specimen: [id number] Collected: 05/31/2018 13:15 Status: Final Last Updated: 05/31/2018 17:23 (1) No: Do not add to previous draw CDT DNA: (Final) NegativeNormalThSuburban Community Hospital & Brentwood HospitalComment on above:Order Comment: No: Do not add to previous drawPerformed By: #### 30176, 70145, 32504, 44954 #### [facility] [address] [place] [address], USABASIC METABOLIC PANELon 14-00-2328Bosbcez mass conc9.0 mg/dLNormal8.6-10.3The [facility] HospitalComment on above:Order Comment: No: Do not add to previous drawPerformed By: #### 15617, 66167, 22073, 69980 #### [facility] [address] [place] [address], USAChloride molar conc97 mmol/SXgs95-726Zkl [facility] HospitalComment on above:Order Comment: No: Do not add to previous drawPerformed By: #### 77244, 54787, 85395, 89642 #### [facility] [address] [place] [address], USACO2 molar conc32 mmol/ANdov92-81Dwo [facility] HospitalComment on above:Order Comment: No: Do not add to previous draw Performed By: #### 38741, 18296, 26099, 73366 #### [facility] [address] [place] [address], USACreatinine mass conc0.60 mg/dLNormal0.60-1.20The [facility] HospitalComment on above:Order Comment: No: Do not add to previous drawPerformed By: #### 82479, 05903, 70867, 78357 #### [facility] [address] [place] [address], USAGFR/1.73 sq M predicted among blacks MDRD vol rate/area (S/P/Bld)mL/min/{1.73_m2}Normal>60The [facility] HospitalComment on above:Order Comment: No: Do not add to previous drawPerformed By: #### 24903, 58362, 04025, 09570 #### [facility] [address] [place] [address], USAGFR/1.73 sq M predicted among non-blacks MDRD vol rate/area (S/P/Bld)mL/min/{1.73_m2}Normal>60The [facility] HospitalComment on above:Order Comment: No: Do not add to previous drawPerformed By: #### 12663, 73897, 01627, 73814 #### [facility] [address] [place] [address], USAGlucose mass pdmc366 mg/vATjrs81-636Gyl [facility] HospitalComment on above:Order Comment: No: Do not add to previous drawPerformed By: #### 01504, 05507, 61144, 91915 #### [facility] [address] [place] [address], USAPotassium molar conc2.9 mmol/LLow3.5-5.1The [facility] HospitalComment on above:Order Comment: No: Do not add to previous drawPerformed By: #### 83907, 45807, 54121, 92894 #### [facility] [address] [place] [address], USASodium molar slwl980 mmol/ERnnqgm281-944Gjs [facility] HospitalComment on above:Order Comment: No: Do not add to previous drawPerformed By: #### 44482, 62965, 85151, 79889 #### [facility] [address] [place] [address], USAUrea nitrogen mass conc12 mg/dLNormal7-25The [facility] HospitalComment on above:Order Comment: No: Do not add to previous drawPerformed By: #### 69135, 58210, 50056, 15556 #### [facility] [address] [facility] [place] [place] [address], USACBC W/DIFFon 83-32-2078HCU BASOPHILS0.0 10*3/uLNormal 0.0-0.2The [facility] HospitalComment on above:Order Comment: No: Do not add to previous drawPerformed By: #### 90749, 55052, 00957, 70748 #### [facility] [address] [place] [address], USAABS NEUTROPHILS3.2 10*3/uLNormal1.6-7.6The [facility] HospitalComment on above:Order Comment: No: Do not add to previous drawPerformed By: #### 21309, 23589, 17858, 60247 #### [facility] [address] [facility] [place] [address], USABasophils #/vol (Bld)0.0 %Normal0.0-1.0The [facility] HospitalComment on above:Order Comment: No: Do not add to previous drawPerformed By: #### 89505, 15407, 04287, 10768 #### [facility] [address] [place] [address], USAEosinophils #/vol (Bld)0.0 10*3/uLNormal0.0-0.5The [facility] HospitalComment on above:Order Comment: No: Do not add to previous drawPerformed By: #### 59940, 60674, 79656, 97672 #### [facility] [address] [place] [address], USAEosinophils/100 WBC (Bld)0.0 %Normal0.0-6.0The [facility] HospitalComment on above:Order Comment: No: Do not add to previous drawPerformed By: #### 18988, 62657, 35353, 54239 #### [facility] [address] [place] [address], USAErythrocyte distribution width Ratio (RBC)14.2 %Normal 11.5-15.0The [facility] HospitalComment on above:Order Comment: No: Do not add to previous drawPerformed By: #### 22237, 84205, 51066, 59816 #### [facility] [address] [place] [address], USAGIANT PLATELETSPresentNormalThe [facility]uff[facility] HospitalComment on above:Order Comment: No: Do not add to previous draw Performed By: #### 84515, 00861, 37628, 12612 #### [facility] [address] [place] [address], USAHematocrit Volume Fraction (Bld)37.7 %Zuggwu17.0-45.0The [facility] HospitalComment on above:Order Comment: No: Do not add to previous drawPerformed By: #### 04807, 32127, 30720, 91290 #### [facility] [address] [place] [address], USAHemoglobin mass conc (Bld)12.5 g/uVLofpub94.0-15.0The [facility] HospitalComment on above:Order Comment: No: Do not add to previous drawPerformed By: #### 02219, 60818, 45351, 37919 #### [facility] [address] [place] [address], USALymphocytes #/vol (Bld)1.2 10*3/uLNormal1.2-4.0The [facility] HospitalComment on above:Order Comment: No: Do not add to previous drawPerformed By: #### 28627, 71811, 53961, 32750 #### [facility] [address] [place] [address], USALymphocytes/100 WBC (Bld)24.3 %Nlyxwi18.0-45.0The [facility] HospitalComment on above:Order Comment: No: Do not add to previous drawPerformed By: #### 17503, 59796, 02555, 24890 #### [facility] [address] [place] [address], [facility] Entitic mass (RBC)27.7 byGahedq72.0-33.0The [facility] HospitalComment on above:Order Comment: No: Do not add to previous drawPerformed By: #### 03765, 99068, 70176, 61864 #### [facility] [address] [place] [address], [facility]HC mass conc (RBC)33.2 g/wYDpkitz59.0-35.0The [facility] HospitalComment on above:Order Comment: No: Do not add to previous drawPerformed By: #### 75958, 47556, 44043, 14985 #### [facility] [address] [place] [address], [facility] Entitic volume (RBC)83.6 zKEwzluo13.0-98.0The [facility] HospitalComment on above:Order Comment: No: Do not add to previous drawPerformed By: #### 39535, 65446, 44200, 25479 #### [facility] [address] [place] [address], USAMETAMYELO0.9 %High0.0-0.0The [facility] HospitalComment on above:Order Comment: No: Do not add to previous drawPerformed By: #### 09129, 50409, 66023, 08303 #### [facility] [address] [place] [address], USAMonocytes #/vol (Bld)0.4 10*3/uLNormal0.1-1.0The [facility] HospitalComment on above:Order Comment: No: Do not add to previous drawPerformed By: #### 57023, 59733, 18332, 62846 #### [facility] [address] [place] [address], USAMONOS7.5 %Normal5.0-12.0The [facility] HospitalComment on above:Order Comment: No: Do not add to previous drawPerformed By: #### 75878, 35611, 63180, 81547 #### [facility] [address] [place] [address], USAMYELOS1.9 %High.0-.0The [facility] Comment on above:Order Comment: No: Do not add to previous drawPerformed By: #### 81321, 72080, 55557, 67758 #### [facility] [address] [place] [address], USANeutrophils/100 WBC (Bld)65.4 %Wqmxdd44.0-72.0The [facility] HospitalComment on above:Order Comment: No: Do not add to previous drawPerformed By: #### 94267, 37965, 65648, 14912 #### [facility] [address] [place] [address], USANRBC SCANPresentNormalThe [facility] HospitalComment on above:Order Comment: No: Do not add to previous drawPerformed By: #### 09571, 96331, 10044, 59852 #### [facility] [address] [place] [address], USANucleated RBC/100 WBC Ratio (Bld)0 %Normal0-0The [facility] HospitalComment on above:Order Comment: No: Do not add to previous drawPerformed By: #### 89347, 77581, 39328, 57214 #### [facility] [address] [place] [address], USAPLAT IPH334 10*3/lTFnecye701-666Ogs [facility] HospitalComment on above:Order Comment: No: Do not add to previous draw Performed By: #### 89007, 76787, 60728, 17616 #### [facility] [address] [place] [address], [facility] CENTERRBC #/vol (Bld)4.51 10*6/uLNormal3.80-5.00The [facility] HospitalComment on above:Order Comment: No: Do not add to previous drawPerformed By: #### 04302, 11171, 46429, 45240 #### [facility] [address] [place] [address], USAWBC #/vol (Bld)4.88 10*3/uLNormal4.00-10.60The [facility] HospitalComment on above:Order Comment: No: Do not add to previous drawPerformed By: #### 19249, 02736, 34011, 41815 #### [facility] [address] [place] [address], USAEEG Reporton [id number] ReportName: Shabana Stallworth [facility] MR#: [id number] Age: 58 Physician: Colt Boggs M.D. Date: From 6:30 on May 29, 2018, until 6:30 on May 30, 2018 Lab#: Day 7 Date of : 1960 Patient Type: I NEURODIAGNOSTIC SERVICES REPORT [address] [place], [place] [address] Board of the [place] [employer] Accredited production recorder: Jesse Muir. EEG DURATION: 23:45 and 28 [...] Matson MD Date Trans: 05/31/2018 05:14 A/mmo DN_JN:[id number] cc: Colt Boggs M.D. [address] [place] [address] [facility] [address]QganevRyaSelect Medical Cleveland Clinic Rehabilitation Hospital, BeachwoodMAGNESIUM BLOODon 09-58-5888Hfvsskvtk mass conc1.9 mg/dLNormal1.9-2.7The [facility] HospitalComment on above:Order Comment: No: Do not add to previous drawPerformed By: #### 59583, 45356, 56185, 54026 #### [facility] [address] [place] [address], USAPHOSPHORUS BLOODon 16-24-3310Gguvdgcgu mass conc4.0 mg/dL Normal2.5-5.0The [facility] HospitalComment on above:Order Comment: No: Do not add to previous drawPerformed By: #### 52240, 21433, 31690, 93585 #### [facility] [address] [place] [address], USAPOC GLUCOSE LABon 19-75-0852Jtzsawc mass tnva762 mg/dLHigh 70-100The [facility] HospitalComment on above:Performed By: #### 49443, 44652, 35276, 14270 #### [facility] [address] [place] [address], USAGlucose mass bxev852 mg/yVGery53-729Orp [facility] HospitalComment on above:Performed By: #### 70001, 09014, 03761, 86772 #### [facility] [address] [place] [address], USAGlucose mass ibuz113 mg/pVJarj02-533Dgh [facility] HospitalComment on above:Performed By: #### 97561, 87672, 05616, 17264 #### [facility] [address] [place] [address], USAGlucose mass dgci528 mg/oEGvwg34-387Jun [facility] HospitalComment on above:Performed By: #### Iesha, 79886, 96251, 57315 #### [facility] [address] [place] [address], USAARTERIAL BLOOD GAS WITH ICAon 91-54-8701PWEI EXCESS5 mmol/L High-2-2The [facility] HospitalComment on above:Performed By: #### Iesha, 79088, 69999, 36991 #### [facility] [address] [place] [address], USADELIVERY SYSTEMSMVNoLicking Memorial HospitalComment on above:Performed By: #### Iesha, 91199, 82804, 35784 #### [facility] [address] [place] [address], VBZWOZ076 %Yogsuw10-150Eeq [facility] Comment on above:Performed By: #### Iesha, 36032, 17017, 09732 #### [facility] [address] [place] [address], USAHCO3 molar conc (Bld)30 mmol/KOzdm59-11Tur [facility] HospitalComment on above:Performed By: #### Iesha, 61368, 22605, 91799 #### [facility] [address] [place] [address], USAIONIZED CALCIUM1.21 mmol/LNormal1.13-1.32The [facility] HospitalComment on above:Performed By: #### Iesha, 96694, 08162, 81149 #### [facility] [address] [place] [address], USAMIN VOLUME7.7NoLicking Memorial Hospital Comment on above:Performed By: #### Iesha, 04810, 15293, 18744 #### [facility] [address] [place] [address], USAMODALITYACSelect Medical Cleveland Clinic Rehabilitation [facility], [facility] Comment on above:Performed By: #### Iesha, 91014, 84912, 06155 #### [facility] [address] [place] [address], USAOxygen ppres (Bld)88 mm[Hg]Fxrspe83-695Vjs [facility] HospitalComment on above:Performed By: #### Iesha, 47298, 19576, 99144 #### [facility] [address] [place] [address], USAOxygen saturation in Blood95.4 %Stygzy75.0-97.0The [facility] HospitalComment on above:Performed By: #### Iesha, 52745, 30919, 35129 #### [facility] [address] [place] [address], QKBSFJ428 vvEeDqxwtj88-14Koo [facility] HospitalComment on above:Performed By: #### Iesha, 66634, 27767, 28480 #### [facility] [address] [place] [address], USAPEEP8.0 UAY45DbauttTgr [facility] Comment on above:Performed By: #### Iesha, 32721, 36143, 88333 #### [facility] [address] [place] [address], USAPF AQKBS782 mvSnVmbgri60-768Vdr [facility] HospitalComment on above:Performed By: #### Iesha, 92134, 68425, 54627 #### [facility] [address] [place] [address], USApH (Bld)7.45 [pH]Normal7.35-7.45The [facility] HospitalComment on above:Performed By: #### Iesha, 73068, 41673, 81235 #### [facility] [address] [place] [address], USATIDAL VOLUME (VT) VT928MjvbhuFwwSelect Medical Cleveland Clinic Rehabilitation Hospital, BeachwoodComment on above:Performed By: #### Iesha, 88539, 75987, 94528 #### [facility] [address] [place] [address], USABASIC METABOLIC PANELon 33-77-4833Qgoirto mass conc8.5 mg/dLLow8.6-10.3The [facility] HospitalComment on above:Order Comment: No: Do not add to previous drawPerformed By: #### 40289, 06587, 19875, 88818 #### [facility] [address] [place] [address], USAChloride molar kbec655 mmol/ZBgkryt75-768Ulz [facility] HospitalComment on above:Order Comment: No: Do not add to previous drawPerformed By: #### 55730, 01534, 72536, 64385 #### [facility] [address] [place] [address], USACO2 molar conc28 mmol/RZstcsa06-46Iev [facility] HospitalComment on above:Order Comment: No: Do not add to previous draw Performed By: #### 10077, 35755, 82524, 71233 #### [facility] [address] [place] [address], USACreatinine mass conc0.59 mg/dLLow0.60-1.20The [facility] HospitalComment on above:Order Comment: No: Do not add to previous drawPerformed By: #### 54615, 00692, 57586, 75092 #### [facility] [address] [place] [address], USAGFR/1.73 sq M predicted among blacks MDRD vol rate/area (S/P/Bld)mL/min/{1.73_m2}Normal>60The [facility] HospitalComment on above:Order Comment: No: Do not add to previous drawPerformed By: #### 41009, 22851, 02980, 17771 #### [facility] [address] [place] [address], USAGFR/1.73 sq M predicted among non-blacks MDRD vol rate/area (S/P/Bld)mL/min/{1.73_m2}Normal>60The [facility] Comment on above:Order Comment: No: Do not add to previous drawPerformed By: #### 42752, 42098, 66363, 12541 #### [facility] [address] [place] [address], USAGlucose mass xrxn846 mg/aJJoac47-722Upa [facility] HospitalComment on above:Order Comment: No: Do not add to previous drawPerformed By: #### 92882, 70733, 60336, 77298 #### [facility] [address] [place] [address], USAPotassium molar conc3.6 mmol/LNormal3.5-5.1The [facility] HospitalComment on above:Order Comment: No: Do not add to previous drawPerformed By: #### 42942, 15910, 94051, 90781 #### [facility] [address] [place] [address], USASodium molar yhpp611 mmol/EFzzqbi808-533Qgz [facility] HospitalComment on above:Order Comment: No: Do not add to previous drawPerformed By: #### 06373, 68940, 69036, 56760 #### [facility] [address] [place] [address], USAUrea nitrogen mass conc20 mg/dLNormal7-25The [facility] HospitalComment on above:Order Comment: No: Do not add to previous drawPerformed By: #### 42245, 88713, 68953, 93449 #### [facility] [address] [place] [address], [facility]ICAL CENTERCBC W/DIFFon 39-06-4950DTA BASOPHILS0.0 10*3/uLNormal 0.0-0.2The [facility] HospitalComment on above:Order Comment: No: Do not add to previous drawPerformed By: #### 82503, 22879, 58456, 49807 #### [facility] [address] [place] [address], USAABS IMM GRANS0.2 10*3/uLNormal0.0-0.2The [facility] HospitalComment on above:Order Comment: No: Do not add to previous drawPerformed By: #### 50529, 02104, 78875, 28527 #### [facility] [address] [place] [address], USAABS NEUTROPHILS2.5 10*3/uLNormal1.6-7.6The [facility] HospitalComment on above:Order Comment: No: Do not add to previous drawPerformed By: #### 22398, 58134, 31697, 82786 #### [facility] [address] [facility] [place] [address], USABasophils #/vol (Bld)0.5 %Normal0.0-1.0The [facility] HospitalComment on above:Order Comment: No: Do not add to previous drawPerformed By: #### 13215, 49462, 16258, 93536 #### [facility] [address] [facility] [place] [address], USAEosinophils #/vol (Bld)0.0 10*3/uLNormal0.0-0.5The [facility] HospitalComment on above:Order Comment: No: Do not add to previous drawPerformed By: #### 11166, 79229, 70438, 28954 #### [facility] [address] [facility] [address], USAEosinophils/100 WBC (Bld)0.0 %Normal0.0-6.0The [facility] HospitalComment on above:Order Comment: No: Do not add to previous drawPerformed By: #### 55557, 87838, 91693, 72953 #### [facility] [address] [facility] [place] [address], USAErythrocyte distribution width Ratio (RBC)13.9 %Normal 11.5-15.0The [facility] HospitalComment on above:Order Comment: No: Do not add to previous drawPerformed By: #### 69337, 94066, 90513, 45862 #### [facility] [address] [place] [address], USAHematocrit Volume Fraction (Bld)34.3 %Low36.0-45.0The [facility] HospitalComment on above:Order Comment: No: Do not add to previous drawPerformed By: #### 99724, 09555, 81302, 57993 #### [facility] [address] [place] [address], [facility] MEDICAL CENTERHemoglobin mass conc (Bld)11.3 g/dLLow12.0-15.0The [facility] HospitalComment on above:Order Comment: No: Do not add to previous drawPerformed By: #### 61095, 97690, 80133, 24267 #### [facility] [address] [place] [address], USAIMMATURE GRANS3.6 %High0.0-1.0The [facility] HospitalComment on above:Order Comment: No: Do not add to previous draw Performed By: #### 64267, 78276, 36536, 68390 #### [facility] [address] [place] [address], USALymphocytes #/vol (Bld)1.2 10*3/uLNormal1.2-4.0The [facility] HospitalComment on above:Order Comment: No: Do not add to previous drawPerformed By: #### 93680, 11164, 39563, 95108 #### [facility] [address] [place] [address], USALymphocytes/100 WBC (Bld)29.0 %Arxwvd78.0-45.0The [facility] HospitalComment on above:Order Comment: No: Do not add to previous drawPerformed By: #### 97392, 20299, 62656, 90718 #### [facility] [address] [place] [address], [facility] Entitic mass (RBC)28.0 jxCxhxbx63.0-33.0The [facility] HospitalComment on above:Order Comment: No: Do not add to previous drawPerformed By: #### 76810, 90833, 82500, 86502 #### [facility] [address] [place] [address], [facility]HC mass conc (RBC)32.9 g/iQPfijvf41.0-35.0The [facility] HospitalComment on above:Order Comment: No: Do not add to previous drawPerformed By: #### 91409, 24970, 26568, 10812 #### [facility] [address] [place] [address], [facility] Entitic volume (RBC)85.1 aXRstlun92.0-98.0The [facility] HospitalComment on above:Order Comment: No: Do not add to previous drawPerformed By: #### 88318, 70092, 20021, 04788 #### [facility] [address] [place] [address], USAMonocytes #/vol (Bld)0.3 10*3/uLNormal0.1-1.0The [facility] HospitalComment on above:Order Comment: No: Do not add to previous drawPerformed By: #### 28945, 91825, 91611, 52871 #### [facility] [address] [place] [address], USAMONOS6.9 %Normal5.0-12.0The [facility] HospitalComment on above:Order Comment: No: Do not add to previous drawPerformed By: #### 17398, 70215, 47717, 50701 #### [facility] [address] [place] [address], USANeutrophils/100 WBC (Bld)60.0 %Impttw88.0-72.0The [facility] HospitalComment on above:Order Comment: No: Do not add to previous drawPerformed By: #### 58450, 90011, 69633, 47489 #### [facility] [address] [place] [address], USANucleated RBC/100 WBC Ratio (Bld)0 %Normal0-0The [facility] HospitalComment on above:Order Comment: No: Do not add to previous drawPerformed By: #### 63375, 15650, 83958, 28002 #### [facility] [address] [place] [address], USAPLAT HUT818 10*3/mJYdvnft493-187Sav [facility] HospitalComment on above:Order Comment: No: Do not add to previous draw Performed By: #### 24332, 77387, 08613, 61261 #### [facility] [address] [place] [address], USARBC #/vol (Bld)4.03 10*6/uLNormal3.80-5.00The [facility] HospitalComment on above:Order Comment: No: Do not add to previous drawPerformed By: #### 38344, 47017, 41159, 18005 #### [facility] [address] [place] [address], USAWBC #/vol (Bld)4.20 10*3/uLNormal4.00-10.60The [facility] HospitalComment on above:Order Comment: No: Do not add to previous drawPerformed By: #### 31550, 04404, 88986, 10555 #### [facility] [address] [place] [address], USAEEG Reporton [id number] ReportName: Shabana Stallworth [facility] MR#: [id number] Age: 58 Physician: Colt Boggs M.D. Date: From 0630 hours on May 28, 2018, until 0630 hours on May 29, 2018 Lab#: 6 Date of : 1960 Patient Type: I NEURODIAGNOSTIC SERVICES REPORT [address] [place], [place] [address] [employer] of the [employer] Accredited production recorder: Jesse Muir. EEG DURATION: 23:53:41. CLINICAL HISTORY: [...] MD Date Trans: 05/30/2018 05:46 Dipak/luis e DN_JN:[id number] cc: Colt Boggs M.D. [address] [place] [address] [facility] [address]EwmutgDntLicking Memorial HospitalMAGNESIUM BLOODon 12-93-1065Xwblujiug mass conc1.8 mg/dLLow1.9-2.7The [facility] HospitalComment on above:Order Comment: No: Do not add to previous draw Performed By: #### [id number], 83350, 64610, 34034 #### [facility] [address] [place] [address], USAPHOSPHORUS BLOODon 05-93-0780Ykmunhljf mass conc2.0 mg/dL Low2.5-5.0The [facility] HospitalComment on above:Order Comment: No: Do not add to previous drawPerformed By: #### 08786, 79475, 31715, 90068 #### [facility] [address] [place] [address], [place] GLUCOSE LABon 64-95-5624Tsqjuwn mass jkbk437 mg/dLHigh 70-100The [facility] HospitalComment on above:Performed By: #### 07477, 61545, 90219, 55946 #### [facility] [address] [place] [address], USAGlucose mass taqf882 mg/wCAsfu24-590Bpa [facility] HospitalComment on above:Performed By: #### 79993, 34362, 41001, 40236 #### [facility] [address] [place] [address], USABASIC METABOLIC PANELon 50-57-3095Smjlkjm mass conc8.7 mg/dLNormal8.6-10.3The [facility] HospitalComment on above:Order Comment: No: Do not add to previous drawPerformed By: #### 76401, 68354, 94475, 06231 #### [facility] [address] [place] [address], USAChloride molar hngf133 mmol/GJmseob40-038Jmb [facility] HospitalComment on above:Order Comment: No: Do not add to previous drawPerformed By: #### 59839, 03198, 85794, 73888 #### [facility] [address] [place] [address], USACO2 molar conc26 mmol/XXmnitw96-34Cuz [facility] HospitalComment on above:Order Comment: No: Do not add to previous draw Performed By: #### 47584, 63889, 50286, 00704 #### [facility] [address] [place] [address], USACreatinine mass conc0.56 mg/dLLow0.60-1.20The [facility] HospitalComment on above:Order Comment: No: Do not add to previous drawPerformed By: #### 36256, 32454, 80318, 01072 #### [facility] [address] [place] [address], USAGFR/1.73 sq M predicted among blacks MDRD vol rate/area (S/P/Bld)mL/min/{1.73_m2}Normal>60The [facility] HospitalComment on above:Order Comment: No: Do not add to previous drawPerformed By: #### 73806, 95166, 09101, 29009 #### [facility] [address] [place] [address], USAGFR/1.73 sq M predicted among non-blacks MDRD vol rate/area (S/P/Bld)mL/min/{1.73_m2}Normal>60[facility] Comment on above:Order Comment: No: Do not add to previous drawPerformed By: #### 17633, 25229, 29582, 67092 #### [facility] [address] [place] [address], USAGlucose mass vaou060 mg/pHCjrr44-006Edt [facility] HospitalComment on above:Order Comment: No: Do not add to previous drawPerformed By: #### 92449, 24811, 18128, 00326 #### [facility] [address] [place] [address], USAPotassium molar conc4.1 mmol/LNormal3.5-5.1The [facility] HospitalComment on above:Order Comment: No: Do not add to previous drawPerformed By: #### 57823, 74542, 90544, 58874 #### [facility] [address] [place] [address], USASodium molar milr127 mmol/QEaq105-471Gpn [facility] HospitalComment on above:Order Comment: No: Do not add to previous drawPerformed By: #### 07752, 52689, 83613, 04883 #### [facility] [address] [place] [address], USAUrea nitrogen mass conc20 mg/dLNormal7-25The [facility] HospitalComment on above:Order Comment: No: Do not add to previous drawPerformed By: #### 29033, 83225, 18572, 95095 #### [facility] [address] [place] [address], USACBC COMPLETE BLOOD COUNTon 15-20-0302Bbhoskflqoz distribution width Ratio (RBC)13.7 %Scrkzg80.5-15.0The [facility] HospitalComment on above:Order Comment: No: Do not add to previous draw Performed By: #### 04779, 25418, 53652, 54679 #### [facility] [address] [place] [address], USAHematocrit Volume Fraction (Bld)34.0 %Low36.0-45.0The [facility] HospitalComment on above:Order Comment: No: Do not add to previous drawPerformed By: #### 48405, 92507, 53007, 47401 #### [facility] [address] [place] [address], [facility]ICAL CENTERHemoglobin mass conc (Bld)11.2 g/dLLow12.0-15.0The [facility] HospitalComment on above:Order Comment: No: Do not add to previous drawPerformed By: #### 53562, 12977, 08844, 94785 #### [facility] [address] [place] [address], [facility] Entitic mass (RBC)27.6 ucMngxgn33.0-33.0The [facility] HospitalComment on above:Order Comment: No: Do not add to previous drawPerformed By: #### 43196, 05292, 12265, 08587 #### [facility] [address] [place] [address], [facility]HC mass conc (RBC)32.9 g/cHUvgwnm34.0-35.0The [facility] HospitalComment on above:Order Comment: No: Do not add to previous drawPerformed By: #### 18886, 98121, 61810, 74359 #### [facility] [address] [place] [address], [facility] Entitic volume (RBC)83.7 yFHkbsiu17.0-98.0The [facility] HospitalComment on above:Order Comment: No: Do not add to previous drawPerformed By: #### 54177, 89881, 07294, 06913 #### [facility] [address] [place] [address], [facility] MEDICAL CENTERNucleated RBC/100 WBC Ratio (Bld)0 %Normal0-0The [facility] HospitalComment on above:Order Comment: No: Do not add to previous drawPerformed By: #### 60844, 39730, 67585, 12518 #### [facility] [address] [place] [address], USAPLAT LIK034 10*3/zEMnvkcf719-653Ssn [facility] HospitalComment on above:Order Comment: No: Do not add to previous draw Performed By: #### 16890, 13891, 89666, 67675 #### [facility] [address] [place] [address], [facility] CENTERRBC #/vol (Bld)4.06 10*6/uLNormal3.80-5.00The [facility] HospitalComment on above:Order Comment: No: Do not add to previous drawPerformed By: #### 61542, 44512, 16915, 15941 #### [facility] [address] [place] [address], [facility] MEDICAL CENTERWBC #/vol (Bld)3.83 10*3/uLLow4.00-10.60The [facility] HospitalComment on above:Order Comment: No: Do not add to previous drawPerformed By: #### 58095, 82634, 44854, 97450 #### [facility] [address] [place] [address], [facility] MEDICAL CENTEREEG Reporton [id number] ReportName: Shabana Stallworth [facility] MR#: [id number] Age: 58 Physician: Colt Boggs M.D. Date: From 0630 hours on May 27, 2018, until 0630 hours on May 28, 2018. Lab#: Date of : 1960 Patient Type: I NEURODIAGNOSTIC SERVICES REPORT [address] [place], [place] [address] Board of the [place] [employer] Accredited production recorder: Jesse Muir. EEG DURATION: 23:57 and 28 [...] MD Date Trans: 05/29/2018 08:51 Dipak/luis e DN_JN:[id number] cc: Colt Boggs M.D. [address] [place] [address] [facility] [address]CfkmjlWqxSelect Medical Cleveland Clinic Rehabilitation Hospital, Edwin ShawMAGNESIUM BLOODon 80-93-3926Phohbtotf mass conc1.9 mg/dLNormal1.9-2.7The [facility] HospitalComment on above:Order Comment: No: Do not add to previous drawPerformed By: #### 26077, 09836, 84436, 31068 #### [facility] [address] [place] [address], USAPHOSPHORUS BLOODon 62-62-2527Vaqmsyuje mass conc2.0 mg/dL Low2.5-5.0The [facility] HospitalComment on above:Order Comment: No: Do not add to previous drawPerformed By: #### 05174, 75854, 63864, 03751 #### [facility] [address] [place] [address], USABASIC METABOLIC PANELon 72-77-9903Wprtkar mass conc8.5 mg/dLLow8.6-10.3The [facility] HospitalComment on above:Order Comment: No: Do not add to previous drawPerformed By: #### 15068, 18618, 99750, 56142 #### [facility] [address] [place] [address], USAChloride molar gaik547 mmol/AZjahgg17-554Cgq [facility] HospitalComment on above:Order Comment: No: Do not add to previous drawPerformed By: #### 05054, 51740, 97443, 90884 #### [facility] [address] [place] [address], USACO2 molar conc22 mmol/LGcoktf03-74Gru [facility] HospitalComment on above:Order Comment: No: Do not add to previous draw Performed By: #### 22200, 63233, 93711, 95272 #### [facility] [address] [place] [address], USACreatinine mass conc0.54 mg/dLLow0.60-1.20The [facility] HospitalComment on above:Order Comment: No: Do not add to previous drawPerformed By: #### 39120, 76533, 71829, 70942 #### [facility] [address] [place] [address], USAGFR/1.73 sq M predicted among blacks MDRD vol rate/area (S/P/Bld)mL/min/{1.73_m2}Normal>60The [facility] HospitalComment on above:Order Comment: No: Do not add to previous drawPerformed By: #### 21642, 43571, 75812, 33318 #### [facility] [address] [place] [address], USAGFR/1.73 sq M predicted among non-blacks MDRD vol rate/area (S/P/Bld)mL/min/{1.73_m2}Normal>60The [facility] Comment on above:Order Comment: No: Do not add to previous drawPerformed By: #### 30912, 52923, 76882, 94603 #### [facility] [address] [place] [address], USAGlucose mass ilwo401 mg/aFRwwx51-943Ebf [facility] HospitalComment on above:Order Comment: No: Do not add to previous drawPerformed By: #### 11706, 12938, 12983, 91339 #### [facility] [address] [place] [address], USAPotassium molar conc3.9 mmol/LNormal3.5-5.1The [facility] HospitalComment on above:Order Comment: No: Do not add to previous drawPerformed By: #### 32566, 41743, 27736, 08248 #### [facility] [address] [place] [address], USASodium molar wvhg624 mmol/NRohumy022-964Ksv [facility] HospitalComment on above:Order Comment: No: Do not add to previous drawPerformed By: #### 89120, 93309, 97060, 83227 #### [facility] [address] [place] [address], USAUrea nitrogen mass conc15 mg/dLNormal7-25The [facility] HospitalComment on above:Order Comment: No: Do not add to previous drawPerformed By: #### 12229, 51503, 49668, 85682 #### [facility] [address] [place] [address], [facility] [place] COMPLETE BLOOD COUNTon 31-34-8355Lmirxrvmxha distribution width Ratio (RBC)13.9 %Awcfxw71.5-15.0The [facility] HospitalComment on above:Order Comment: No: Do not add to previous draw Performed By: #### 05465, 98319, 94083, 82346 #### [facility] [address] [place] [address], USAHematocrit Volume Fraction (Bld)32.2 %Low36.0-45.0The [facility] HospitalComment on above:Order Comment: No: Do not add to previous drawPerformed By: #### 11519, 01652, 70716, 43054 #### [facility] [address] [place] [address], [facility] MEDICAL CENTERHemoglobin mass conc (Bld)10.4 g/dLLow12.0-15.0The [facility] HospitalComment on above:Order Comment: No: Do not add to previous drawPerformed By: #### 54496, 27938, 69686, 33316 #### [facility] [address] [place] [address], [facility] Entitic mass (RBC)27.6 acDismub58.0-33.0The [facility] HospitalComment on above:Order Comment: No: Do not add to previous drawPerformed By: #### 65130, 71134, 08615, 10950 #### [facility] [address] [place] [address], [facility] mass conc (RBC)32.3 g/aCDqndlx02.0-35.0The [facility] HospitalComment on above:Order Comment: No: Do not add to previous drawPerformed By: #### 55060, 02395, 75572, 48849 #### [facility] [address] [place] [address], [facility] Entitic volume (RBC)85.4 zZZyrbpz84.0-98.0The [facility] HospitalComment on above:Order Comment: No: Do not add to previous drawPerformed By: #### 94243, 20206, 15358, 22442 #### [facility] [address] [place] [address], USANucleated RBC/100 WBC Ratio (Bld)0 %Normal0-0The [facility] HospitalComment on above:Order Comment: No: Do not add to previous drawPerformed By: #### 01273, 16192, 56358, 90568 #### [facility] [address] [facility] [place] [address], USAPLAT TKR414 10*3/aOGdkwvq098-806Xrf [facility] HospitalComment on above:Order Comment: No: Do not add to previous draw Performed By: #### 54767, 64073, 64885, 68506 #### [facility] [address] [place] [address], [facility] CENTERRBC #/vol (Bld)3.77 10*6/uLLow3.80-5.00The [facility] HospitalComment on above:Order Comment: No: Do not add to previous drawPerformed By: #### 21948, 29868, 55930, 77123 #### [facility] [address] [place] [address], [facility] MEDICAL CENTERWBC #/vol (Bld)3.77 10*3/uLLow4.00-10.60The [facility] HospitalComment on above:Order Comment: No: Do not add to previous drawPerformed By: #### 20999, 25994, 85362, 84505 #### [facility] [address] [place] [address], USACORTISOLon 50-31-7679UDBIDKEU3.6 mcg/dLNormalThe [facility] HospitalComment on above:Order Comment: No: Do not add to previous drawResult Comment: Reference Range: AM 6.0-23.0 mcg/dL PM 0.0-9.0 mcg/dLPerformed By: #### 45071, 24453, 00423, 36253 #### [facility] [address] [place] [address], USAMAGNESIUM BLOODon 01-81-5114Evtiiewal mass conc1.8 mg/dLLow 1.9-2.7The [facility] HospitalComment on above:Order Comment: No: Do not add to previous drawPerformed By: #### 59663, 47773, 25739, 17133 #### [facility] [address] [place] [address], USAPHOSPHORUS BLOODon 50-61-6931Kfwyqkhgf mass conc3.0 mg/dL Normal2.5-5.0The [facility] HospitalComment on above:Order Comment: No: Do not add to previous drawPerformed By: #### 80617, 48990, 23553, 61384 #### [facility] [address] [place] [address], [place]ATHYROGLOBULIN [place] 41864iz 59-95-8200Xeckvstntyxit Ab Qn [IU]/mLNormal0.0-4.0The [facility] HospitalComment on above: Order Comment: No: Do not add to previous drawResult Comment: INTERPRETIVE INFORMATION: Thyroglobulin Antibody A value of 4.0 IU/mL or less indicates a negative result for thyroglobulin antibodies. The Thyroglobulin Antibody assay is being performed using the [place] Access DxI method. Performed by [employer], [address] [place] [address] [email or web address], Jack Torres MD - Lab. DirectorARTERIAL BLOOD GAS WITH ICAon [id number] EXCESS-5 mmol/LLow-2-2The [facility] Comment on above:Performed By: #### 24865, 90398, 93228, 00059 #### [facility] [address] [place] [address], USADELIVERY SYSTEMSWexner Medical CenterComment on above:Performed By: #### Iesha, 63566, 95127, 31464 #### [facility] [address] [place] [address], RAWELG989 %Rreerl85-561Boq [facility] Comment on above:Performed By: #### Iesha, 16780, 66247, 74376 #### [facility] [address] [place] [address], USAHCO3 molar conc (Bld)21 mmol/BJkb21-39Xuq [facility] HospitalComment on above:Performed By: #### Iesha, 06279, 52232, 95072 #### [facility] [address] [place] [address], USAIONIZED CALCIUM1.25 mmol/LNormal1.13-1.32The [facility] HospitalComment on above:Performed By: #### Iesha, 79574, 73012, 91976 #### [facility] [address] [place] [address], USAMIN VOLUME6.1NormalThe [facility] Comment on above:Performed By: #### Iesha, 70634, 80173, 53442 #### [facility] [address] [place] [address], USAMODALITYACNormalThe [facility] Comment on above:Performed By: #### Iesha, 00249, 65617, 60779 #### [facility] [address] [place] [address], USAOxygen ppres (Bld)135 mm[Hg]Critically gvgz87-016Nyf [facility] HospitalComment on above:Performed By: #### Iesha, 53502, 10352, 44304 #### [facility] [address] [place] [address], USAOxygen saturation in Blood95.5 %Qnnmkj45.0-97.0The [facility] HospitalComment on above:Performed By: #### Iesha, 20392, 52572, 07229 #### [facility] [address] [place] [address], FNTKRJ629 fbKxMotqab47-47Muk [facility] HospitalComment on above:Performed By: #### 87258, 09877, 82105, 23624 #### [facility] [address] [place] [address], USAPEEP8.0 GHQ68HmdwpdMujLicking Memorial Hospital Comment on above:Performed By: #### 01531, 92657, 38154, 77467 #### [facility] [address] [place] [address], USApH (Bld)7.30 [pH]Low7.35-7.45The [facility] HospitalComment on above:Performed By: #### 93030, 33146, 77723, 99146 #### [facility] [address] [place] [address], USATIDAL VOLUME (VT) RY685JgwdaqJmgLicking Memorial HospitalComment on above:Performed By: #### 05123, 78087, 97698, 48044 #### [facility] [address] [place] [address], USABASIC METABOLIC PANELon 37-87-2792Wjlworl mass conc8.1 mg/dLLow8.6-10.3The [facility] HospitalComment on above:Order Comment: No: Do not add to previous drawPerformed By: #### 21800, 13599, 47643, 08410 #### [facility] [address] [place] [address], USAChloride molar zcer495 mmol/KNbis87-920Wje [facility] HospitalComment on above:Order Comment: No: Do not add to previous drawPerformed By: #### 88869, 34919, 08697, 64016 #### [facility] [address] [place] [address], USACO2 molar conc23 mmol/SMqkwfe44-82Kcd [facility] HospitalComment on above:Order Comment: No: Do not add to previous draw Performed By: #### 37336, 61906, 13927, 19770 #### [facility] [address] [place] [address], USACreatinine mass conc0.63 mg/dLNormal0.60-1.20The [facility] HospitalComment on above:Order Comment: No: Do not add to previous drawPerformed By: #### 05731, 58844, 42879, 96622 #### [facility] [address] [place] [address], USAGFR/1.73 sq M predicted among blacks MDRD vol rate/area (S/P/Bld)mL/min/{1.73_m2}Normal>60The [facility] HospitalComment on above:Order Comment: No: Do not add to previous drawPerformed By: #### 09861, 12064, 37090, 85591 #### [facility] [address] [place] [address], USAGFR/1.73 sq M predicted among non-blacks MDRD vol rate/area (S/P/Bld)mL/min/{1.73_m2}Normal>60The [facility] Comment on above:Order Comment: No: Do not add to previous drawPerformed By: #### 51966, 66435, 79923, 92385 #### [facility] [address] [place] [address], USAGlucose mass conc87 mg/vTWxsgjz20-727Gel [facility] HospitalComment on above:Order Comment: No: Do not add to previous drawPerformed By: #### 94772, 71641, 15546, 27664 #### [facility] [address] [place] [address], USAPotassium molar conc3.7 mmol/LNormal3.5-5.1The [facility] HospitalComment on above:Order Comment: No: Do not add to previous drawPerformed By: #### 74816, 91536, 47913, 93465 #### [facility] [address] [place] [address], USASodium molar ruqn292 mmol/DMgrnpp000-810Jlv [facility] HospitalComment on above:Order Comment: No: Do not add to previous drawPerformed By: #### 38538, 43893, 20517, 60710 #### [facility] [address] [place] [address], USAUrea nitrogen mass conc8 mg/dLNormal7-25The [facility] HospitalComment on above:Order Comment: No: Do not add to previous drawPerformed By: #### 99113, 53912, 97192, 87838 #### [facility] [address] [place] [address], USACBC COMPLETE BLOOD COUNTon 47-01-4255Ejshlrgqgdk distribution width Ratio (RBC)14.1 %Babhhv29.5-15.0The [facility] HospitalComment on above:Order Comment: No: Do not add to previous draw Performed By: #### 50344, 48087, 89524, 70256 #### [facility] [address] [place] [address], USAHematocrit Volume Fraction (Bld)32.7 %Low36.0-45.0The [facility] HospitalComment on above:Order Comment: No: Do not add to previous drawPerformed By: #### 74211, 54240, 57670, 58509 #### [facility] [address] [place] [address], USAHemoglobin mass conc (Bld)10.6 g/dLLow12.0-15.0The [facility] HospitalComment on above:Order Comment: No: Do not add to previous drawPerformed By: #### 24369, 48686, 18582, 65028 #### [facility] [address] [place] [address], [facility] Entitic mass (RBC)28.0 zlKwoerx23.0-33.0The [facility] HospitalComment on above:Order Comment: No: Do not add to previous drawPerformed By: #### 11335, 52004, 41223, 89816 #### [facility] [address] [place] [address], [facility] mass conc (RBC)32.4 g/iDLbdkze07.0-35.0The [facility] HospitalComment on above:Order Comment: No: Do not add to previous drawPerformed By: #### 39721, 32119, 06033, 97666 #### [facility] [address] [facility] [place] [place] [address], [facility] Entitic volume (RBC)86.5 yFXfpekd30.0-98.0The [facility] HospitalComment on above:Order Comment: No: Do not add to previous drawPerformed By: #### 08582, 88078, 58404, 97144 #### [facility] [address] [place] [address], [facility] MEDICAL CENTERNucleated RBC/100 WBC Ratio (Bld)0 %Normal0-0The [facility] HospitalComment on above:Order Comment: No: Do not add to previous drawPerformed By: #### 97379, 34581, 80729, 90081 #### [facility] [address] [place] [address], USAPLAT YSN360 10*3/nUKqqosg475-731Vih [facility] HospitalComment on above:Order Comment: No: Do not add to previous draw Performed By: #### 85989, 15169, 08273, 94592 #### [facility] [address] [place] [address], [facility] MEDICAL CENTERRBC #/vol (Bld)3.78 10*6/uLLow3.80-5.00The [facility] HospitalComment on above:Order Comment: No: Do not add to previous drawPerformed By: #### 14301, 23648, 39392, 66720 #### [facility] [address] [place] [address], USAWBC #/vol (Bld)3.84 10*3/uLLow4.00-10.60The [facility] HospitalComment on above:Order Comment: No: Do not add to previous drawPerformed By: #### 42006, 04430, 47272, 22120 #### [facility] [address] [place] [address], USAEEG Reporton [id number] ReportName: Shabana Stallworth [facility] MR#: [id number] Age: 58 Physician: Colt Boggs M.D. Date: From 6:30 on May 26, 2018, until 6:30 hours on May 27, 2018 Lab#: Date of : 1960 Patient Type: I NEURODIAGNOSTIC SERVICES REPORT [address] [place], [place] [address] Board of the [place] [employer] Accredited production recorder: Jesse Muir. EEG DURATION: 23:57 and 13 [...] Matson MD Date Trans: 05/27/2018 08:32 P/mmo DN_JN:[id number] cc: Colt Boggs M.D. [address] [place] [id number] Medical [facility] Clinic Rehabilitation Hospital, Edwin ShawEE Report Name: Shabana Stallworth [facility] MR#: [id number] Age: 58 Physician: Colt Boggs M.D. Date: From 0630 hours on May 25, 2018, until 0630 hours on May 26, 2018 Lab#: 3 Date of : 1960 Patient Type: I NEURODIAGNOSTIC SERVICES REPORT [address] [place], [place] [address] Board of the [place] [employer] Accredited production recorder: Jesse Muir. EEG DURATION: 23:57:32. CLINICAL HISTORY: [...] MD Date Trans: 05/27/2018 07:09 Dipak/luis e DN_JN:[id number] cc: Colt Boggs M.D. [address] [place] [id number] Medical Cleveland Clinic Rehabilitation Hospital, Edwin ShawMAGNESIUM BLOODon 30-17-0382Biahtabzp mass conc1.7 mg/dLLow1.9-2.7The [facility] HospitalComment on above:Order Comment: No: Do not add to previous draw Performed By: #### 08840, 02971, 10145, 54955 #### [facility] [address] [place] [address], [facility] MEDICAL CENTERPHOSPHORUS BLOODon 46-51-9552Lbwrvafcb mass conc3.0 mg/dL Normal2.5-5.0The [facility] HospitalComment on above:Order Comment: No: Do not add to previous drawPerformed By: #### 92570, 34329, 78161, 58174 #### [facility] [address] [place] [address], USAARTERIAL BLOOD GAS WITH ICAon 33-66-3080HGGE EXCESS-3 mmol/LLow-2-2The [facility] HospitalComment on above:Performed By: #### [id number] #### [facility] [address] [place] [address], USADELIVERY SYSTEMSMVSelect Medical Cleveland Clinic Rehabilitation Hospital, Edwin ShawComment on above:Performed By: #### [id number] #### [facility] [address] [facility] [place] [address], [id number] %Pwmlrg69-224Mjj [facility] Comment on above:Performed By: #### [id number] #### [facility] [address] [facility] [place] [place] [address], USAHCO3 molar conc (Bld)22 mmol/IXzb58-03Wwf [facility] HospitalComment on above:Performed By: #### [id number] #### [facility] [address] [facility] [facility] [place] [place] [address], USAIONIZED CALCIUM1.19 mmol/LNormal1.13-1.32The [facility] HospitalComment on above:Performed By: #### [id number] #### [facility] [address] [facility] [facility] [place] [address], USAMIN VOLUME6.1NormalThe [facility] Comment on above:Performed By: #### [id number] #### [facility] [address] [facility] [place] [address], USAMODALITYACNoLicking Memorial Hospital Comment on above:Performed By: #### [id number] #### [facility] [address] [facility] [place] [place] [address], USAOxygen ppres (Bld)162 mm[Hg]Critically gwto77-757Fbu [facility] HospitalComment on above:Performed By: #### [id number] #### [facility] [facility] [address] [place] [address], USAOxygen saturation in Blood96.4 %Jlmuum71.0-97.0The [facility]uff[facility] HospitalComment on above:Performed By: #### [id number] #### [facility] [address] [place] [address], JKZENV813 vnFcDgrurt12-83Ndn [facility] HospitalComment on above:Performed By: #### [id number] #### [facility] [address] [place] [address], USAPEEP8.0 AIP49CxyydeAcp [facility] Comment on above:Performed By: #### [id number] #### [facility] [address] [place] [address], USApH (Bld)7.35 [pH]Normal7.35-7.45The [facility]uff[facility] HospitalComment on above:Performed By: #### [id number] #### [facility] [address] [place] [address], USATIDAL VOLUME ([place]) [id number] Medical [facility] Hospital, BeachwoodComment on above:Performed By: #### [id number] #### [facility] [address] [place] [address], USABASIC METABOLIC PANELon 17-87-0093Wjaflhn mass conc7.8 mg/dLLow8.6-10.3The [facility]uff[facility] HospitalComment on above:Order Comment: No: Do not add to previous drawPerformed By: #### [id number] #### [facility] [address] [place] [address], USAChloride molar btnm978 mmol/TWphg04-970Bei [facility] HospitalComment on above:Order Comment: No: Do not add to previous drawPerformed By: #### [id number] #### [facility] [address] [place] [address], USACO2 molar conc22 mmol/PQittkm44-16Zxd [facility] HospitalComment on above:Order Comment: No: Do not add to previous draw Performed By: #### [id number] #### [facility] [address] [place] [address], USACreatinine mass conc0.60 mg/dLNormal0.60-1.20The [facility] HospitalComment on above:Order Comment: No: Do not add to previous drawPerformed By: #### [id number] #### [facility] [address] [place] [address], USAGFR/1.73 sq M predicted among blacks MDRD vol rate/area (S/P/Bld)mL/min/{1.73_m2}Normal>60The [facility] HospitalComment on above:Order Comment: No: Do not add to previous drawPerformed By: #### [id number] #### [facility] [address] [place] [address], USAGFR/1.73 sq M predicted among non-blacks MDRD vol rate/area (S/P/Bld)mL/min/{1.73_m2}Normal>60The [facility] Comment on above:Order Comment: No: Do not add to previous drawPerformed By: #### [id number] #### [facility] [address] [place] [address], USAGlucose mass conc85 mg/kEZgtwjc83-084Xoq [facility] HospitalComment on above:Order Comment: No: Do not add to previous drawPerformed By: #### [id number] #### [facility] [address] [place] [address], USAPotassium molar conc3.8 mmol/LNormal3.5-5.1The [facility] HospitalComment on above:Order Comment: No: Do not add to previous drawPerformed By: #### [id number] #### [facility] [address] [facility] [place] [address], [facility] MEDICAL CENTERSodium molar gzkm159 mmol/HGohawy002-958Rvj [facility] HospitalComment on above:Order Comment: No: Do not add to previous drawPerformed By: #### [id number] #### [facility] [address] [facility] [place] [place] [address], USAUrea nitrogen mass conc7 mg/dLNormal7-25The [facility] HospitalComment on above:Order Comment: No: Do not add to previous drawPerformed By: #### [id number] #### [facility] [address] [place] [address], [facility] MEDICAL CENTERCBC W/DIFFon [id number] BASOPHILS0.0 10*3/uLNormal 0.0-0.2The [facility] HospitalComment on above:Order Comment: No: Do not add to previous drawPerformed By: #### [id number] #### [facility] [address] [place] [address], USAABS IMM GRANS0.0 10*3/uLNormal0.0-0.2The [facility] HospitalComment on above:Order Comment: No: Do not add to previous drawPerformed By: #### [id number] #### [facility] [address] [place] [address], USAABS NEUTROPHILS1.9 10*3/uLNormal1.6-7.6The [facility] HospitalComment on above:Order Comment: No: Do not add to previous drawPerformed By: #### [id number] #### [facility] [address] [place] [address], USABasophils #/vol (Bld)1.2 %High0.0-1.0The [facility] HospitalComment on above:Order Comment: No: Do not add to previous drawPerformed By: #### [id number] #### [facility] [address] [place] [address], USAEosinophils #/vol (Bld)0.1 10*3/uLNormal0.0-0.5The [facility] HospitalComment on above:Order Comment: No: Do not add to previous drawPerformed By: #### 53811 #### [facility] [address] [place] [address], USAEosinophils/100 WBC (Bld)4.0 %Normal0.0-6.0The [facility] HospitalComment on above:Order Comment: No: Do not add to previous drawPerformed By: #### 13711 #### [facility] [address] [place] [address], USAErythrocyte distribution width Ratio (RBC)14.6 %Normal 11.5-15.0The [facility] HospitalComment on above:Order Comment: No: Do not add to previous drawPerformed By: #### [id number] #### [facility] [address] [facility] [place] [address], USAHematocrit Volume Fraction (Bld)35.2 %Low36.0-45.0The [facility] HospitalComment on above:Order Comment: No: Do not add to previous drawPerformed By: #### [id number] #### [facility] [address] [facility] [place] [place] [address], USAHemoglobin mass conc (Bld)10.9 g/dLLow12.0-15.0The [facility] HospitalComment on above:Order Comment: No: Do not add to previous drawPerformed By: #### [id number] #### [facility] [address] [place] [address], USAIMMATURE GRANS0.6 %Normal0.0-1.0The [facility] HospitalComment on above:Order Comment: No: Do not add to previous draw Performed By: #### [id number] #### [facility] [address] [place] [address], [facility] MEDICAL CENTERLymphocytes #/vol (Bld)1.0 10*3/uLLow1.2-4.0The [facility] HospitalComment on above:Order Comment: No: Do not add to previous drawPerformed By: #### [id number] #### [facility] [address] [place] [id number], [facility] MEDICAL CENTERLymphocytes/100 WBC (Bld)29.3 %Didbgi13.0-45.0The [facility] HospitalComment on above:Order Comment: No: Do not add to previous drawPerformed By: #### [id number] #### [facility] [address] [place] [address], [facility] CITYH Entitic mass (RBC)27.8 jfGucyim89.0-33.0The [facility] HospitalComment on above:Order Comment: No: Do not add to previous drawPerformed By: #### [id number] #### [facility] [address] [facility] [place] [place] [address], [facility] CITYHC mass conc (RBC)31.0 g/dLLow32.0-35.0The [facility] HospitalComment on above:Order Comment: No: Do not add to previous drawPerformed By: #### [id number] #### [facility] [address] [place] [address], [facility] CITYV Entitic volume (RBC)89.8 bBOqttih04.0-98.0The [facility] HospitalComment on above:Order Comment: No: Do not add to previous drawPerformed By: #### [id number] #### [facility] [address] [place] [address], USAMonocytes #/vol (Bld)0.2 10*3/uLNormal0.1-1.0The [facility] HospitalComment on above:Order Comment: No: Do not add to previous drawPerformed By: #### [id number] #### [facility] [address] [place] [address], USAMONOS7.0 %Normal5.0-12.0The [facility] HospitalComment on above:Order Comment: No: Do not add to previous drawPerformed By: #### [id number] #### [facility] [address] [place] [address], USANeutrophils/100 WBC (Bld)57.9 %Pxpkmo41.0-72.0The [facility] HospitalComment on above:Order Comment: No: Do not add to previous drawPerformed By: #### [id number] #### [facility] [address] [place] [address], USANucleated RBC/100 WBC Ratio (Bld)0 %Normal0-0The [facility] HospitalComment on above:Order Comment: No: Do not add to previous drawPerformed By: #### [id number] #### [facility] [address] [place] [address], USAPLAT DZM580 10*3/xDJfkiyj860-738Kih [facility] HospitalComment on above:Order Comment: No: Do not add to previous draw Performed By: #### [id number] #### [facility] [address] [place] [address], USARBC #/vol (Bld)3.92 10*6/uLNormal3.80-5.00The [facility] HospitalComment on above:Order Comment: No: Do not add to previous drawPerformed By: #### [id number] #### [facility] [address] [place] [address], USAWBC #/vol (Bld)3.28 10*3/uLLow4.00-10.60The [facility] HospitalComment on above:Order Comment: No: Do not add to previous drawPerformed By: #### [id number] #### [facility] [address] [place] [address], USAEEG Reporton [id number] ReportName: Shabana Stallworth [facility] MR#: [id number] Age: 58 Physician: Colt Boggs M.D. Date: 05/24/2018, Day #2. Lab#: Date of : 1960 Patient Type: I NEURODIAGNOSTIC SERVICES REPORT [address], [place] [address] Board of the [place] [employer] Accredited Laboratory STUDY: Clinical Neurophysiology [...] May 25, 2018, and is suggestive of jqmafhge-mp-ivklvk diffuse encephalopathy. No clear epileptiform discharges or EEG seizures were seen during this recording. There was no push button event. Electronically Signed by: Raghu Matson MD 06/02/2018 09:51 P Raghu Matson MD Date Dict: 05/25/2018/09:23 A/Raghu Matson MD Date Trans: 05/26/2018 07:34 A/luis e DN_JN:[id number] cc: Colt Boggs M.D. [address] [place] [address] [facility] [address]NipxagXinLicking Memorial HospitalMAGNESIUM BLOODon 33-21-3220Irxazschj mass conc1.9 mg/dLNormal1.9-2.7The [facility] HospitalComment on above:Order Comment: No: Do not add to previous drawPerformed By: #### [id number] #### [facility] [address]PHOSPHORUS BLOODon 57-01-0991Vanudxdgr mass conc2.7 mg/dL Normal2.5-5.0The [facility] HospitalComment on above:Order Comment: No: Do not add to previous drawPerformed By: #### [id number] #### [facility] [address]*CSF CULTUREon 05-25-2018*CSF CULTUREClinical Report: (D) Specimen/Source: CSF/Tube 3 Collected: 05/25/2018 15:00 Status: Final Last Updated: 05/30/2018 06:30 (1) Lumbar Puncture. GRAM (Final) No Polys Seen No Bacteria Seen CYTOSPUN (Final) This Gram Stain was done on a cytocentrifuged specimen CULT RES (Final) No Growth Day 5NoLicking Memorial HospitalComment on above: Order Comment: No: Do not add to previous drawPerformed By: #### [id number] #### [facility] [address] [place] [address], USAALBUMIN FLUID MISCon 03-35-5104Zfnzxit mass concg/dLNormal The [facility] HospitalComment on above:Order Comment: No: Do not add to previous drawResult Comment: The reference range and other method performance specifications have not been established for this test in fluids. the test result should be integrated into the clinical context for interpretation.Performed By: #### [id number] #### [facility] [address] [place] [address], USAARTERIAL BLOOD GAS WITH ICAon 17-42-0502XAUY EXCESS-2 mmol/MMntpvq-2-8Sqh [facility] HospitalComment on above: Performed By: #### 69140 #### [facility] [address] [place] [address], USADELIVERY SYSTEMSMVNoLicking Memorial HospitalComment on above:Performed By: #### [id number] #### [facility] [address] [place] [address], TQJGOC264 %Wunrdx37-544Sau [facility] Comment on above:Performed By: #### [id number] #### [facility] [address] [place] [address], USAHCO3 molar conc (Bld)24 mmol/TQvfrbt17-36Jwb [facility] HospitalComment on above:Performed By: #### 33005 #### [facility] [address] [place] [address], USAIONIZED CALCIUM1.16 mmol/LNormal1.13-1.32The [facility] HospitalComment on above:Performed By: #### 90204 #### [facility] [address] [place] [address], USAMIN VOLUME5.8NoLicking Memorial Hospital Comment on above:Performed By: #### 25099 #### [facility] [address] [place] [address], USAMODALITYACNoLicking Memorial Hospital Comment on above:Performed By: #### [id number] #### [facility] [address] [place] [address], USAOxygen ppres (Bld)131 mm[Hg]Critically eiyd11-829Nam [facility] HospitalComment on above:Performed By: #### [id number] #### [facility] [address] [place] [address], USAOxygen saturation in Blood96.3 %Gkrkwy87.0-97.0The [facility] HospitalComment on above:Performed By: #### 39859 #### [facility] [address] [place] [address], XKCYNJ736 mkWxZomlgo42-58Lls [facility] HospitalComment on above:Performed By: #### 11844 #### [facility] [address] [place] [address], USAPEEP8.0 RHR50AkpenzLwdLicking Memorial Hospital Comment on above:Performed By: #### [id number] #### [facility] [address] [place] [address], USApH (Bld)7.34 [pH]Low7.35-7.45The [facility] HospitalComment on above:Performed By: #### [id number] #### [facility] [address] [place] [address], USATIDAL VOLUME ([place]) [id number] Medical Cleveland Clinic Rehabilitation Hospital, BeachwoodComment on above:Performed By: #### [id number] #### [facility] [address] [place] [address], USABASIC METABOLIC PANELon 99-53-6183Tittzge mass conc7.8 mg/dLLow8.6-10.3The [facility] HospitalComment on above:Order Comment: No: Do not add to previous drawPerformed By: #### [id number] #### [facility] [address] [place] [address], USAChloride molar oiqb942 mmol/KGago77-559Aks [facility] HospitalComment on above:Order Comment: No: Do not add to previous drawPerformed By: #### [id number] #### [facility] [address] [place] [address], USACO2 molar conc22 mmol/AQlchpx68-52Zni [facility] HospitalComment on above:Order Comment: No: Do not add to previous draw Performed By: #### 54300 #### [facility] [address] [place] [address], USACreatinine mass conc0.75 mg/dLNormal0.60-1.20The [facility] HospitalComment on above:Order Comment: No: Do not add to previous drawPerformed By: #### [id number] #### [facility] [address] [place] [address], USAGFR/1.73 sq M predicted among blacks MDRD vol rate/area (S/P/Bld)mL/min/{1.73_m2}Normal>60The [facility] HospitalComment on above:Order Comment: No: Do not add to previous drawPerformed By: #### 39089 #### [facility] [address] [place] [address], USAGFR/1.73 sq M predicted among non-blacks MDRD vol rate/area (S/P/Bld)mL/min/{1.73_m2}Normal>60The [facility] Comment on above:Order Comment: No: Do not add to previous drawPerformed By: #### 02105 #### [facility] [address] [place] [address], USAGlucose mass alik729 mg/wKQfgc54-636Qmx [facility] HospitalComment on above:Order Comment: No: Do not add to previous drawPerformed By: #### [id number] #### [facility] [address] [facility] [place] [address], USAPotassium molar conc3.3 mmol/LLow3.5-5.1The [facility] HospitalComment on above:Order Comment: No: Do not add to previous drawPerformed By: #### [id number] #### [facility] [address] [facility] [place] [address], USASodium molar enwf311 mmol/KViccau501-314Bhq [facility] HospitalComment on above:Order Comment: No: Do not add to previous drawPerformed By: #### 02120 #### [facility] [address] [place] [address], USAUrea nitrogen mass conc10 mg/dLNormal7-25The [facility] HospitalComment on above:Order Comment: No: Do not add to previous drawPerformed By: #### 16526 #### [facility] [address] [place] [address], [facility] CENTERCBC W/DIFFon 80-72-0315OYC BASOPHILS0.0 10*3/uLNormal 0.0-0.2The [facility] HospitalComment on above:Order Comment: No: Do not add to previous drawPerformed By: #### [id number] #### [facility] [address] [place] [address], [facility] CENTERABS IMM GRANS0.0 10*3/uLNormal0.0-0.2The [facility] HospitalComment on above:Order Comment: No: Do not add to previous drawPerformed By: #### [id number] #### [facility] [address] [place] [address], [facility] CENTERABS NEUTROPHILS2.9 10*3/uLNormal1.6-7.6The [facility] HospitalComment on above:Order Comment: No: Do not add to previous drawPerformed By: #### [id number] #### [facility] [address] [place] [address], USABasophils #/vol (Bld)0.7 %Normal0.0-1.0The [facility] HospitalComment on above:Order Comment: No: Do not add to previous drawPerformed By: #### [id number] #### [facility] [address] [place] [address], USAEosinophils #/vol (Bld)0.1 10*3/uLNormal0.0-0.5The [facility] HospitalComment on above:Order Comment: No: Do not add to previous drawPerformed By: #### [id number] #### [facility] [address] [facility] [place] [address], USAEosinophils/100 WBC (Bld)2.9 %Normal0.0-6.0The [facility] HospitalComment on above:Order Comment: No: Do not add to previous drawPerformed By: #### 13671 #### [facility] [address] [facility] [place] [address], USAErythrocyte distribution width Ratio (RBC)14.2 %Normal 11.5-15.0The [facility] HospitalComment on above:Order Comment: No: Do not add to previous drawPerformed By: #### 82073 #### [facility] [address] [facility] [place] [address], USAHematocrit Volume Fraction (Bld)33.4 %Low36.0-45.0The [facility] HospitalComment on above:Order Comment: No: Do not add to previous drawPerformed By: #### [id number] #### [facility] [address] [place] [address], USAHemoglobin mass conc (Bld)10.8 g/dLLow12.0-15.0The [facility] HospitalComment on above:Order Comment: No: Do not add to previous drawPerformed By: #### 90595 #### [facility] [address] [place] [address], USAIMMATURE GRANS0.2 %Normal0.0-1.0The [facility] HospitalComment on above:Order Comment: No: Do not add to previous draw Performed By: #### [id number] #### [facility] [address] [place] [address], USALymphocytes #/vol (Bld)1.1 10*3/uLLow1.2-4.0The [facility] HospitalComment on above:Order Comment: No: Do not add to previous drawPerformed By: #### [id number] #### [facility] [address] [place] [address], USALymphocytes/100 WBC (Bld)24.4 %Dndzcd03.0-45.0The [facility] HospitalComment on above:Order Comment: No: Do not add to previous drawPerformed By: #### [id number] #### [facility] [address] [place] [address], [facility] Entitic mass (RBC)27.9 rtKurptl00.0-33.0The [facility] HospitalComment on above:Order Comment: No: Do not add to previous drawPerformed By: #### 44039 #### [facility] [address] [place] [address], [facility]HC mass conc (RBC)32.3 g/rZZsvyal08.0-35.0The [facility] HospitalComment on above:Order Comment: No: Do not add to previous drawPerformed By: #### 53580 #### [facility] [address] [place] [address], [facility]V Entitic volume (RBC)86.3 eQHuvpmd87.0-98.0The [facility] HospitalComment on above:Order Comment: No: Do not add to previous drawPerformed By: #### [id number] #### [facility] [address] [place] [address], USAMonocytes #/vol (Bld)0.3 10*3/uLNormal0.1-1.0The [facility] HospitalComment on above:Order Comment: No: Do not add to previous drawPerformed By: #### [id number] #### [facility] [address] [place] [address], USAMONOS7.0 %Normal5.0-12.0The [facility] HospitalComment on above:Order Comment: No: Do not add to previous drawPerformed By: #### 56145 #### [facility] [address] [place] [address], USANeutrophils/100 WBC (Bld)64.8 %Qmotfa63.0-72.0The [facility] HospitalComment on above:Order Comment: No: Do not add to previous drawPerformed By: #### [id number] #### [facility] [address] [place] [address], USANucleated RBC/100 WBC Ratio (Bld)0 %Normal0-0The [facility] HospitalComment on above:Order Comment: No: Do not add to previous drawPerformed By: #### [id number] #### [facility] [address] [place] [address], USAPLAT MAY524 10*3/kDNbphdp450-347Aei [facility] HospitalComment on above:Order Comment: No: Do not add to previous draw Performed By: #### [id number] #### [facility] [address] [place] [address], USARBC #/vol (Bld)3.87 10*6/uLNormal3.80-5.00The [facility] HospitalComment on above:Order Comment: No: Do not add to previous drawPerformed By: #### 55741 #### [facility] [address] [place] [address], USAWBC #/vol (Bld)4.43 10*3/uLNormal4.00-10.60The [facility] HospitalComment on above:Order Comment: No: Do not add to previous drawPerformed By: #### 91877 #### [facility] [address] [place] [address], USACSF CELL COUNTon [id number] APPEARALL 4 TUBES: CLEAR AND COLORLESSNormalThe [facility] HospitalComment on above:Order Comment: No: Do not add to previous drawPerformed By: #### [id number] #### [facility] [address] [place] [address], USAFLUID NFXQAE31.5 mlNormalThe [facility] HospitalComment on above:Order Comment: No: Do not add to previous drawPerformed By: #### 60686 #### [facility] [address] [place] [address], USALymphocytes/100 WBC (Bld)48 %High0-0The [facility] HospitalComment on above:Order Comment: No: Do not add to previous drawPerformed By: #### [id number] #### [facility] [address] [place] [address], FEIOIPTJTBJWV31 %NormalThe [facility] Comment on above:Order Comment: No: Do not add to previous drawPerformed By: #### 56674 #### [facility] [address] [place] [address], USAOTHER B2BMGKC 68 WBC SEEN ON DIFF DONE ON CYTOSPIN PREP NormalThe [facility] HospitalComment on above:Order Comment: No: Do not add to previous drawResult Comment: Result changed by SADE on 05/26/2018 09:25. The previous value was TOTAL 68 WBC SEEN ON DIFF DONE ON CYTOSPIN PREP.Performed By: #### [id number] #### [facility] [address] [place] [address], USAOTHER S8Wmbndlk by Patrick Scott M.D.NormalThe [facility] HospitalComment on above:Order Comment: No: Do not add to previous drawResult Comment: Result changed by JANNACECILIA on 05/26/2018 09:25. The previous value was Preliminary report; verified report to follow.Performed By: #### [id number] #### [facility] [address] [place] [address], USARBC #/vol (Bld)2 rb3Mucc1-8Ohf [facility] HospitalComment on above:Order Comment: No: Do not add to previous drawPerformed By: #### [id number] #### [facility] [address] [place] [address], USARBC % CRENATION0 %Normal0-0The [facility] HospitalComment on above:Order Comment: No: Do not add to previous drawPerformed By: #### 53613 #### [facility] [address] [place] [address], USASEGS9 %High0-0The [facility] Comment on above:Order Comment: No: Do not add to previous drawPerformed By: #### [id number] #### [facility] [address] [place] [address], USASITELUMBAR, TUBE [address] [place], [place] [address]Comment on above:Order Comment: No: Do not add to previous drawPerformed By: #### [id number] #### [facility] [address] [place] [address], USAWBC #/vol (Bld)2 [id number] [facility] HospitalComment on above:Order Comment: No: Do not add to previous drawPerformed By: #### [id number] #### [facility] [address] [place] [address], USAXANTHOCHROMIANONE [facility] HospitalComment on above:Order Comment: No: Do not add to previous draw Performed By: #### [id number] #### [facility] [address] [place] [address], USADILANTINon [id number] (PHENYTOIN)7.7 mcg/mLLow 10.0-20.0The [facility]uff[facility] HospitalComment on above:Order Comment: No: Do not add to previous drawPerformed By: #### [id number] #### [facility] [address] [place] [address], USAEEG Reporton [id number] ReportName: Shabana Stallworth [facility] MR#: [id number] Age: 58 Physician: Colt Boggs M.D. Date: 05/23/2018-05/24/2018 Lab#: [id number], day 1 Date of : 1960 Patient Type: I NEURODIAGNOSTIC SERVICES REPORT [address] [place], [place] [address] Board of the [place] [employer] Accredited Laboratory HISTORY: This video/EEG [...] M.D. Ph.D Date Trans: 05/24/2018 10:34 P/mmo DN_JN:[id number] cc: Colt Boggs M.D. [address] [place] [phone] Medical [facility] Clinic [facility], [facility] ENCEPHALOPATHY, AUTOIMMUNE CSFon 83-80-1649QCXVAXOHABOBBI AUTOIMMUNE EVAL, CSF Results faxed to ordering physician and sent to [facility] SouthComment on above:Performed By: #### [id number] #### [facility] [address] [facility] [place] [address], USAENCEPHALOPATHY, AUTOIMMUNE SERUMon 29-76-3509HZBUTADYFQOMRD EVALUATIONResults faxed to ordering physician and sent to [facility] SouthComment on above:Performed By: #### [id number] #### [facility] [address] [place] [address], USAFLUID SPECIFIC GRAVITYon 38-55-4543NJUW GRAV1.005NoLicking Memorial HospitalComment on above:Order Comment: No: Do not add to previous drawPerformed By: #### [id number] #### [facility] [address] [facility] [place] [address], USAFREE DILANTIN (UNBOUND)on 57-59-8702LBWX DILANTIN1.0 mcg/mL Normal1.0-2.0The [facility] HospitalComment on above:Order Comment: No: Do not add to previous drawPerformed By: #### 80151 #### [facility] [address] [facility] [place] [address], USAGLUCOSE CSFon 20-91-2267KITTYVJ CSF52 mg/lSRkmxqx60-94Ref [facility] HospitalComment on above:Order Comment: No: Do not add to previous drawPerformed By: #### 10273 #### [facility] [address] [place] [address], USAKEPPRA ILon 84-98-6040HLLsyfogLfv [facility] HospitalComment on above:Order Comment: No: Do not add to previous draw LYCJLW47 ug/mLNormalThe [facility] HospitalComment on above: Order Comment: No: Do [...] and toxicity is not known.LUMBAR PUNCTURE DIAGNOSTICon 35-93-0133SINHOL PUNCTURE DIAGNOSTICUnMemorial Health System Department of Radiology [address] [place] [address] Patient Name: SHABANA STALLWORTH : 1960 Sex: F Age: Race: White Pt. Location: [place] [address] Patient Status: I Ordered Date: 05/25/2018 9:10:00 [...] risks are acceptable. Consent was obtained. Timeout: [place] protocol timeout verification performed. PROCEDURE: Lumbar puncture [...] detected. Electronically signed by:Kacie Arnold. Transcribed by: [email or web address], User Resident: Electronically Signed by: KACIE ARNOLD @ 05/25/2018 06:13 PMNormalUniversity Hospitals Ahuja Medical CenterComment on above:Order Comment: No: Do not add to previous drawMRI BRAIN TEMPORAL LOBE W WO CONTRASTon 92-46-5107QAG BRAIN TEMPORAL LOBE W WO CONTRASTUnMemorial Health System Department of Radiology [address] [place] [address] Patient Name: SHABANA STALLWORTH : 1960 Sex: F Age: Race: White Pt. Location: [place] [address] Patient Status: I Ordered Date: 05/25/2018 10:00:00 AM Completed Date: 05/25/2018 02:30 PM Requesting Provider: VELIA NAPOLES Attending Provider: REG RAHMAN Report Copy To: Signs & Symptoms: Seizures History: Patient history not available Comments: R/O Menningitis, question of meningitis vs encephalitis vs MAINTENANCE OF WAY SUPERINTENDENT vasculitis Exam: MRI BRAIN TEMPORAL LOBE W WO CONTRAST MRI BRAIN TEMPORAL LOBE W WO CONTRAST 05/25/2018 2:30 PM EST SIGN AND SYMPTOMS: Seizures TECHNOLOGIST COMMENTS: pt had sudden onset of confusion and an episode of starring off increased fever QUESTION FOR RADIOLOGIST: R/O Menningitis, question of meningitis vs encephalitis vs MAINTENANCE OF WAY SUPERINTENDENT vasculitis PROTOCOL: The following pulse sequences were [...] meningitis Electronically signed by:Kacie Arnold. Transcribed by: [email or web address], User Resident: Electronically Signed by: KACIE ARNOLD @ 05/26/2018 04:08 PMNormalThe [facility] HospitalComment on above:Order Comment: No: Do not add to previous drawPROTHROMBIN TIMEon 87-38-2221AKR Coag RelTime (PPP)1.10 {INR}Normal0.91-1.16The [facility] HospitalComment on above: Order Comment: No: Do [...] OPTIMAL THERAPEUTIC RANGE. CHEST 1995;108:231S-246S.Performed By: #### [id number] #### [facility] [address] [place] [address], USAProthrombin time (PT) Coag time (PPP)14.2 dTghlch13.3-14.8 The [facility] HospitalComment on above:Order Comment: No: Do not add to previous drawResult Comment: ALL RESULTS MUST BE INTERPRETED WITH RESPECT TO BLOOD DRAWING ARTIFACT OR DILUTION ERROR OF ANTICOAGULANT AT THE TIME OF SAMPLING.Performed By: #### [id number] #### [facility] [address] [facility] [place] [address], USATOTAL PROTEIN CSFon 75-05-0847KGQXY PROTEIN CSF93.0 mg/dL High20.0-45.0The [facility] HospitalComment on above:Order Comment: No: Do not add to previous drawPerformed By: #### 49231 #### [facility] [address] [place] [address], USATPO ANTIBODY 53344ds 08-69-8381QDK ANTIBODY<0.3Normal 0.0-9.0The [facility] HospitalComment on above:Order Comment: SPECIMEN IS CSF. PLEASE RUN WITH DISCLAIMER. SPOKE WITH [facility] JOSEPH HOSPITALISSAREFERENCE NUMBER [id number] results should be interpreted with caution. Assay wasperformed at client's request on a sub-optimal specimen.Result Comment: Performed by [facility], [address] [facility] [address] www.[employer], Jack Torres MD - Lab. DirectorVANCOMYCIN TIMEDon 05-25-2018 VANCOMYCIN TIMED12.6 mcg/mLNormalThe [facility] HospitalComment on above:Performed By: #### [id number] #### [facility] [address] [place] [address], USAVANCOMYCIN TIMED30.2 mcg/mLNormalThe [facility] HospitalComment on above:Order Comment: No: Do not add to previous draw Performed By: #### 36296 #### [facility] [address] [place] [address], USAVANCOMYCIN TROUGHon 02-68-8949CCZPJPDEEB TROU10.9 mcg/mL Normal5.0-20.0The [facility] HospitalComment on above:Performed By: #### 63872 #### [facility] [address] [place] [address], [facility]*AFB BLOOD CULTUREon 05-24-2018*AFB BLOOD CULTUREClinical Report: (V) Specimen: BLOOD CULTURE Collected: 05/24/2018 12:48 Status: Pending Last Updated: 05/26/2018 15:38 CULT RES (Prelim) Culture In Progress No Growth To DateSelect Medical Cleveland Clinic Rehabilitation Hospital, Edwin ShawComment on above:Performed By: #### [id number] #### [facility] [address] [place] [address], [facility]*BLOOD CULTUREon 68-94-9575Ylouawaw identified Cx Nom (Bld) Clinical Report: (D) Specimen: BLOOD CULTURE Collected: 05/24/2018 14:47 Status: Final Last Updated: 05/30/2018 06:16 CULT RES (Final) No Growth Day 5Select [facility] Hospital, Edwin ShawComment on above: Performed By: #### [id number] #### [facility] [address] [place] [id number], USABacteria identified Cx Nom (Bld)Clinical Report: (D) Specimen: BLOOD CULTURE Collected: 05/24/2018 12:48 Status: Final Last Updated: 05/30/2018 06:16 CULT RES (Final) No Growth Day 5[facility], [facility] ShawComment on above: Performed By: #### 28530 #### [facility] [address] [place] [address], [facility]*FUNGAL BLOOD CULTUREon 05-24-2018*FUNGAL BLOOD CULTURE Clinical Report: (D) Specimen: BLOOD CULTURE Collected: 05/24/2018 12:48 Status: Final Last Updated: 07/06/2018 11:17 (1) No: Do not add to previous draw CULT RES (Final) No growth after 42 days of incubationNoLicking Memorial HospitalComment on above:Order Comment: No: Do not add to previous drawPerformed By: #### 10130 #### [facility] [address] [place] [address], USAANAon 75-29-2531Ejihlof Ab IF titer (S)<1:40Normal <1:40,1:40The [facility] HospitalComment on above:Order Comment: No: Do not add to previous drawPerformed By: #### 35004 #### [facility] [address] [place] [address], USAANCA IGG WITH REFLEX [id number] 96-01-5863IJXF<1:20Normal <1:20The [facility] HospitalComment on above:Order Comment: No: Do not [...] collagen vascular disease or arthritis. Performed by [facility], [address] [place] [id number] www.[email or web address], Jack Torres MD - Lab. DirectorANTI DNAon 33-93-8063JXRZ DNA <1:10Normal<1:10The [facility] HospitalComment on above:Order Comment: No: Do not add to previous drawPerformed By: #### [id number] #### [facility] [address] [place] [address], USAANTI-BETA 2 GLYCOPROTEIN 1on 79-32-1770URFQ B2GP1 IGG0.0 g unitsNormal0.0-19.9The [facility] HospitalComment on above:Order Comment: No: Do not add to previous drawPerformed By: #### [id number] #### [facility] [address] [place] [address], USAANTI B2GP1 IGM3.6 m unitsNormal0.0-19.9The [facility] HospitalComment on above:Order Comment: No: Do not add to previous drawPerformed By: #### 11120 #### [facility] [address] [facility] [place] [address], USAANTICARDIOLIPIN ANTIBODYon 65-14-7792VHABLLKAIIO IGG7.3 GPL Normal0.0-22.9The [facility] HospitalComment on above:Order Comment: No: Do not add to previous drawPerformed By: #### 04300 #### [facility] [address] [facility] [place] [address], USACARDIOLIPIN IGM5.5 MPLNormal0.0-10.9The [facility] HospitalComment on above:Order Comment: No: Do not add to previous drawPerformed By: #### [id number] #### [facility] [address] [facility] [place] [address], USAARTERIAL BLOOD GAS WITH ICAon 74-67-3637QRCK EXCESS-3 mmol/LLow-2-2The [facility] HospitalComment on above:Performed By: #### 87061 #### [facility] [address] [place] [address], USADELIVERY SYSTEMSMVNoLicking Memorial HospitalComment on above:Performed By: #### [id number] #### [facility] [address] [place] [address], ZEUGIH466 %Bgontr33-215Fib [facility] Comment on above:Performed By: #### 67249 #### [facility] [address] [place] [address], USAHCO3 molar conc (Bld)22 mmol/AZel76-95Jus [facility] HospitalComment on above:Performed By: #### 17775 #### [facility] [address] [facility] [place] [address], USAIONIZED CALCIUM1.14 mmol/LNormal1.13-1.32The [facility] HospitalComment on above:Performed By: #### 05592 #### [facility] [address] [facility] [place] [address], USAMIN VOLUME5.8NoLicking Memorial Hospital Comment on above:Performed By: #### 65774 #### [facility] [address] [facility] [place] [address], USAMODALITYACSelect Medical [facility] Clinic [facility] Comment on above:Performed By: #### 57245 #### [facility] [address] [facility] [place] [address], USAOxygen ppres (Bld)106 mm[Hg]Critically ixmn82-532Fze [facility] HospitalComment on above:Performed By: #### 80694 #### [facility] [address] [facility] [place] [address], USAOxygen saturation in Blood95.3 %Zfequi15.0-97.0The [facility] HospitalComment on above:Performed By: #### 44193 #### [facility] [address] [place] [address], ULJQOV931 cvLlAgkugp36-23Pih [facility] HospitalComment on above:Performed By: #### 32579 #### [facility] [address] [place] [address], USAPEEP8.0 MEX81AgyokwJsrLicking Memorial Hospital Comment on above:Performed By: #### 40227 #### [facility] [address] [place] [address], USAPF HWBWC859 cuEiBoedif32-183Fnm [facility] HospitalComment on above:Performed By: #### 88923 #### [facility] [address] [place] [address], USApH (Bld)7.38 [pH]Normal7.35-7.45The [facility] HospitalComment on above:Performed By: #### 41344 #### [facility] [address] [place] [address], USATIDAL VOLUME (VT) UO622CjvvosZurSelect Medical Cleveland Clinic Rehabilitation Hospital, BeachwoodComment on above:Performed By: #### 34093 #### [facility] [address] [place] [address], USABASIC METABOLIC PANELon 70-42-0440Rngnmhl mass conc8.0 mg/dLLow8.6-10.3The [facility] HospitalComment on above:Order Comment: No: Do not add to previous drawPerformed By: #### 15454 #### [facility] [address] [place] [address], USAChloride molar kyta720 mmol/MZrbrfx78-451Heq [facility] HospitalComment on above:Order Comment: No: Do not add to previous drawPerformed By: #### 23673 #### [facility] [address] [place] [address], USACO2 molar conc23 mmol/UWnkkws86-94Buv [facility] HospitalComment on above:Order Comment: No: Do not add to previous draw Performed By: #### 71202 #### [facility] [address] [place] [address], USACreatinine mass conc0.99 mg/dLNormal0.60-1.20The [facility] HospitalComment on above:Order Comment: No: Do not add to previous drawPerformed By: #### 64971 #### [facility] [address] [place] [address], USAGFR/1.73 sq M predicted among blacks MDRD vol rate/area (S/P/Bld)mL/min/{1.73_m2}Normal>60The [facility] HospitalComment on above:Order Comment: No: Do not add to previous drawPerformed By: #### [id number] #### [facility] [address] [place] [address], USAGFR/1.73 sq M predicted among non-blacks MDRD vol rate/area (S/P/Bld)58 ml/min/1.73sq mAbnormal>60The [facility] Comment on above:Order Comment: No: Do not add to previous drawPerformed By: #### 35050 #### [facility] [address] [place] [address], USAGlucose mass ejbb324 mg/aQBglk47-229Gtb [facility] HospitalComment on above:Order Comment: No: Do not add to previous drawPerformed By: #### 41801 #### [facility] [address] [place] [address], USAPotassium molar conc3.8 mmol/LNormal3.5-5.1The [facility] HospitalComment on above:Order Comment: No: Do not add to previous drawPerformed By: #### [id number] #### [facility] [address] [place] [address], USASodium molar omvv748 mmol/AGvx303-063Vmw [facility] HospitalComment on above:Order Comment: No: Do not add to previous drawPerformed By: #### 48734 #### [facility] [address] [place] [address], USAUrea nitrogen mass conc15 mg/dLNormal7-25The [facility] HospitalComment on above:Order Comment: No: Do not add to previous drawPerformed By: #### 68791 #### [facility] [address] [place] [address], [facility] CENTERCBC COMPLETE BLOOD COUNTon 20-73-2753Dcctgldzcdx distribution width Ratio (RBC)13.7 %Ofoqmc08.5-15.0The [facility] HospitalComment on above:Order Comment: No: Do not add to previous draw Performed By: #### 16098 #### [facility] [address] [place] [address], USAHematocrit Volume Fraction (Bld)36.6 %Pijouc67.0-45.0The [facility] HospitalComment on above:Order Comment: No: Do not add to previous drawPerformed By: #### 85951 #### [facility] [address] [facility] [place] [place] [address], [facility] MEDICAL CENTERHemoglobin mass conc (Bld)11.8 g/dLLow12.0-15.0The [facility] HospitalComment on above:Order Comment: No: Do not add to previous drawPerformed By: #### [id number] #### [facility] [address] [facility] [place] [place] [address], [facility] Entitic mass (RBC)27.6 piTabrlv99.0-33.0The [facility] HospitalComment on above:Order Comment: No: Do not add to previous drawPerformed By: #### 37525 #### [facility] [address] [place] [address], [facility] CENTERMCHC mass conc (RBC)32.2 g/tHApxnau95.0-35.0The [facility] HospitalComment on above:Order Comment: No: Do not add to previous drawPerformed By: #### 23277 #### [facility] [address] [place] [address], [facility] CENTERMCV Entitic volume (RBC)85.7 dONeawxt08.0-98.0The [facility] HospitalComment on above:Order Comment: No: Do not add to previous drawPerformed By: #### 77961 #### [facility] [address] [place] [address], USANucleated RBC/100 WBC Ratio (Bld)0 %Normal0-0The [facility] HospitalComment on above:Order Comment: No: Do not add to previous drawPerformed By: #### 52054 #### [facility] [address] [place] [address], USAPLAT PRB340 10*3/lQKgcxxj459-487Tsf [facility] HospitalComment on above:Order Comment: No: Do not add to previous draw Performed By: #### 85688 #### [facility] [address] [place] [address], [facility] CENTERRBC #/vol (Bld)4.27 10*6/uLNormal3.80-5.00The [facility] HospitalComment on above:Order Comment: No: Do not add to previous drawPerformed By: #### 98171 #### [facility] [address] [place] [address], [facility] CENTERWBC #/vol (Bld)8.94 10*3/uLNormal4.00-10.60The [facility] HospitalComment on above:Order Comment: No: Do not add to previous drawPerformed By: #### 04197 #### [facility] [address] [place] [address], USACOMPLEMENT 3on 33-99-9586BBZDIRFBJS 3134 mg/vWDojtbj93-543 The [facility] HospitalComment on above:Order Comment: No: Do not add to previous drawPerformed By: #### 31685 #### [facility] [address] [place] [address], USACOMPLEMENT 4on 74-67-5838EXRGEJGRTG 428 mg/yPYncslb97-41Plc [facility] HospitalComment on above:Order Comment: No: Do not add to previous drawPerformed By: #### 76268 #### [facility] [address] [place] [address], USACRYOGLOBULIN ILon 08-73-0848TQYEQLXITQAO5 mg/dLNormal0-10 [facility]ja Medical CenterCYCLIC CITRULLINATED PEPTIDE [place] [address]ig 27-17-2741VGLCPT CIT PEP6 UnitsNormal0-19The [facility] Comment on above:Order Comment: No: Do [...] be monitored and testing repeated. Performed by [facility], [address] [place] [address] www.[employer], Jack Torres MD - Lab. DirectorDRVVT SCREENon 95-27-4578RBNEK SCREEN1.04 RATIONormal0.00-1.20The [facility] HospitalComment on above:Order Comment: No: Do not add to previous drawPerformed By: #### 02534 #### [facility] [address] [place] [address], USAEEG Reporton 54-87-1977THN ReportName: Shabana Stallworth [facility] MR#: [id number] Age: 58 Physician: Colt Boggs M.D. Date: 05/23/2018 Lab#: [id number] Date of : 1960 Patient Type: I NEURODIAGNOSTIC SERVICES REPORT [place], [place] [address] Board of the [place] [employer] Accredited Laboratory HISTORY: This EEG [...] Ph.D Date Trans: 05/24/2018 05:02 Dipak/luis e DN_JN:[id number] cc: Colt Boggs M.D. [address] [place] [id number] Medical Cleveland Clinic Rehabilitation Hospital, Edwin ShawFREE DILANTIN (UNBOUND)on 42-25-9916WZKB DILANTIN1.2 mcg/mLNormal1.0-2.0The [facility] HospitalComment on above:Order Comment: No: Do not add to previous draw2x could not getPerformed By: #### 52510 #### [facility] [address] [place] [address], USALUPUS ANTICOAGULANTon 39-50-5111WISXG ANTICOAGULNegative NormalNEGATIVEThe [facility] HospitalComment on above:Order Comment: No: Do not add to previous drawResult Comment: BY HEXAGONAL PHASE PHOSPHOLIPID METHODOLOGYPerformed By: #### 83234 #### [facility] [address] [place] [address], USAMAGNESIUM BLOODon 69-22-9127Jocwhbvwu mass conc1.7 mg/dLLow 1.9-2.7The [facility] HospitalComment on above:Order Comment: No: Do not add to previous drawPerformed By: #### 80897 #### [facility] [address] [place] [address], USAPHOSPHORUS BLOODon 27-12-1931Rqmjiyxrk mass conc3.5 mg/dL Normal2.5-5.0The [facility] HospitalComment on above:Order Comment: No: Do not add to previous drawPerformed By: #### 14070 #### [facility] [address] [place] [address], USAPROCALCITONINon 93-40-6953Snlxgfv mass conc0.18 ng/mLHigh 0.00-0.10The [facility] HospitalComment on above:Order Comment: No: Do not [...] clinically indicated and initial PCT<0.5ng/mLPerformed By: #### 82056 #### [facility] [address] [facility] [place] [place] [address], USAPTT-LAon 98-92-4810lISF Coag time (Bld)37.3 sNormal 31.0-43.0The [facility] HospitalComment on above:Order Comment: No: Do not add to previous drawPerformed By: #### 05021 #### [facility] [address] [place] [address], USARHEUMATOID FACTOR SERUMon 40-66-6459PG<72Vyekyd0-29Glv [facility] HospitalComment on above:Order Comment: No: Do not add to previous drawPerformed By: #### 88239 #### [facility] [address] [place] [address], USASJOGRENS ANTIBODIESon 67-88-9949JU-ANegativeNormal NEG,NEGATIVE,NegThe [facility] HospitalComment on above:Order Comment: No: Do not add to previous drawPerformed By: #### 64815 #### [facility] [address] [place] [address], USASS-BNegativeNormalNEG,NEGATIVE,NegThe [facility] HospitalComment on above:Order Comment: No: Do not add to previous draw Performed By: #### 33998 #### [facility] [address] [place] [address], USASMOOTH MUSCLE ABon 58-79-2838RYKVUC MUSC AB1:20AbnormalNONE DETECTEDThe [facility] HospitalComment on above:Order Comment: No: Do not add to previous drawResult Comment: NONE DETECTED: LESS THAN 1:20 WEAKLY POSITIVE: 1:20 - 1:40 SUGGESTIVE OF CHRONIC HEPATITIS: 1:80 OR GREATER NOTE: FOR WEAKLY POSITIVE RESULTS, TITER MAY BE PRESENT IN ACUTE VIRAL HEPATITIS, INFECTIOUS MONONUCLEOSIS OR MALIGNANCY.Performed By: #### 41241 #### [facility] [address] [place] [address], USAURINALYSIS REFLEXon 43-89-5502Ambqrbqjhg Nom (U)CLEARNormal CLEARThe [facility] HospitalComment on above:Order Comment: No: Do not add to previous drawCriteria for reflexing a culture was not met. Please call the lab [id number] within 24 hours of collection time if culture is needed Performed By: #### 12571 #### [facility] [address] [place] [address], USABilirubin mass concNegativeNormalNEGATIVEThe [facility] HospitalComment on above:Order Comment: No: Do not add to previous drawCriteria for reflexing a culture was not met. Please call the lab [id number] within 24 hours of collection time if culture is neededPerformed By: #### 74542 #### [facility] [address] [place] [address], USABLOODMODERATEAbnormalNEGATIVEThe [facility] HospitalComment on above:Order Comment: No: Do not add to previous drawCriteria for reflexing a culture was not met. Please call the lab [id number] within 24 hours of collection time if culture is neededPerformed By: #### 24194 #### [facility] [address] [place] [address], USAColor Nom (U)YELLOWNormalYELLOWThe [facility] HospitalComment on above:Order Comment: No: Do not add to previous drawCriteria for reflexing a culture was not met. Please call the lab [id number] within 24 hours of collection time if culture is neededPerformed By: #### 02143 #### [facility] [address] [place] [address], USAEPISOCCNormalFEW,OCC,NONE SEENThe [facility] HospitalComment on above:Order Comment: No: Do not add to previous drawCriteria for reflexing a culture was not met. Please call the lab [id number] within 24 hours of collection time if culture is neededPerformed By: #### 54294 #### [facility] [address] [place] [address], USAGlucose mass concNegativeNormalNEGATIVEThe [facility] HospitalComment on above:Order Comment: No: Do not add to previous drawCriteria for reflexing a culture was not met. Please call the lab [id number] within 24 hours of collection time if culture is neededPerformed By: #### 33420 #### [facility] [address] [place] [address], USAKETONENegativeNormalNEGATIVEThe [facility] HospitalComment on above:Order Comment: No: Do not add to previous drawCriteria for reflexing a culture was not met. Please call the lab [id number] within 24 hours of collection time if culture is neededPerformed By: #### 01309 #### [facility] [address] [place] [address], USALEUK ESTERNegativeNormalNEGATIVEThe [facility]uffton HospitalComment on above:Order Comment: No: Do not add to previous drawCriteria for reflexing a culture was not met. Please call the lab [id number] within 24 hours of collection time if culture is neededPerformed By: #### 27510 #### [facility] [address] [place] [address], USAMUCUS THREADSOCCAbnormalNONE SEENThe Bluffton HospitalComment on above:Order Comment: No: Do not add to previous drawCriteria for reflexing a culture was not met. Please call the lab [phone] within 24 hours of collection time if culture is neededPerformed By: #### 21311 #### [facility] [address] [facility] [place] [address], USANitrite Ql (U)NegativeNormalNEGATIVEThe Bluffton HospitalComment on above:Order Comment: No: Do not add to previous drawCriteria for reflexing a culture was not met. Please call the lab [id number] within 24 hours of collection time if culture is neededPerformed By: #### 71598 #### [facility] [address] [facility] [place] [address], USApH (Bld)5.9Uhkofi6.0-8.0The [facility]uff[facility] HospitalComment on above:Order Comment: No: Do not add to previous drawCriteria for reflexing a culture was not met. Please call the lab [phone] within 24 hours of collection time if culture is neededPerformed By: #### 43057 #### [facility] [address] [place] [address], USAProtein mass conc (U)NegativeNormalNEGATIVEThe Bluffton HospitalComment on above:Order Comment: No: Do not add to previous drawCriteria for reflexing a culture was not met. Please call the lab [id number] within 24 hours of collection time if culture is neededPerformed By: #### 08626 #### [facility] [address] [place] [address], [facility] CENTERRBC #/vol (U)21-50AbnormalNONE SEENThe [facility]uff[facility] HospitalComment on above:Order Comment: No: Do not add to previous drawCriteria for reflexing a culture was not met. Please call the lab [phone] within 24 hours of collection time if culture is neededPerformed By: #### 45272 #### [facility] [address] [place] [address], USASPEC GRAV1.434Rowo7.015-1.020The [facility]uff[facility] HospitalComment on above:Order Comment: No: Do not add to previous drawCriteria for reflexing a culture was not met. Please call the lab [id number] within 24 hours of collection time if culture is neededPerformed By: #### 97480 #### [facility] [address] [place] [address], USAURIC ACID CRYSTALOCCAbnormalNONE SEENThe Bluffton HospitalComment on above:Order Comment: No: Do not add to previous drawCriteria for reflexing a culture was not met. Please call the lab [id number] within 24 hours of collection time if culture is neededPerformed By: #### 68769 #### [facility] [address] [place] [address], [facility] CENTERWBC UA3-5AbnormalNONE SEENThe [facility]uff[facility] HospitalComment on above:Order Comment: No: Do not add to previous drawCriteria for reflexing a culture was not met. Please call the lab [phone] within 24 hours of collection time if culture is neededPerformed By: #### [id number] #### [facility] [address] [place] [address], [facility]*RAPID FLU AANDB BY MOLECULARon 05-23-2018*RAPID FLU AANDB BY MOLECULARClinical Report: (D) Specimen: NASAL SWAB Collected: 05/23/2018 11:11 Status: Final Last Updated: 05/23/2018 11:48 FLUA RNA (Final) Negative FLUB RNA (Final) NegativeSelect Medical Cleveland Clinic Rehabilitation Hospital, Edwin ShawComment on above:Performed By: #### [id number] #### [facility] [address] [place] [address], USAAMMONIA BLOODon 56-83-3459Xbnriwp mass conc (P)39 umol/L Qxwjjt07-97Uxw [facility] HospitalComment on above:Order Comment: No: Do not add to previous drawPerformed By: #### 04479 #### [facility] [address] [place] [address], USAARTERIAL BLOOD GAS WITH ICAon 17-59-1386EUVJ EXCESS-1 mmol/MRzkyto-8-3Tww [facility] HospitalComment on above: Performed By: #### 97935 #### [facility] [address] [place] [address], USADELIVERY SYSTEMSMVNoLicking Memorial HospitalComment on above:Performed By: #### 42028 #### [facility] [address] [place] [address], GSWJTE378 %Zebixx15-286Gxm [facility] Comment on above:Performed By: #### 81795 #### [facility] [address] [place] [address], USAHCO3 molar conc (Bld)22 mmol/PSmc94-18Sgf [facility] HospitalComment on above:Performed By: #### 39817 #### [facility] [address] [place] [address], USAIONIZED CALCIUM1.12 mmol/LLow1.13-1.32The [facility] HospitalComment on above:Performed By: #### 34499 #### [facility] [address] [place] [address], USAMIN JMFKDL55.2NormalThe [facility] Comment on above:Performed By: #### 13400 #### [facility] [address] [place] [address], USAMODALITYA/CNormalThe [facility] Comment on above:Performed By: #### 91725 #### [facility] [address] [place] [address], USAOxygen ppres (Bld)131 mm[Hg]Critically lzgj54-452Pks [facility] HospitalComment on above:Performed By: #### 61427 #### [facility] [address] [place] [address], USAOxygen saturation in Blood96.0 %Esmwdb92.0-97.0The [facility] HospitalComment on above:Performed By: #### 70609 #### [facility] [address] [place] [address], KAUONS473 wfHeMkj54-26Skk [facility] Comment on above:Performed By: #### 23617 #### [facility] [address] [place] [address], USAPEEP8.0 TUR41MuxkgqJzpSelect Medical [facility], [place] Comment on above:Performed By: #### 73326 #### [facility] [address] [place] [address], USAPF ULZFY644 wpCbPbarkr75-276Mni [facility] HospitalComment on above:Performed By: #### 41886 #### [facility] [address] [place] [address], USApH (Bld)7.48 [pH]High7.35-7.45The [facility] HospitalComment on above:Performed By: #### 46138 #### [facility] [address] [place] [address], USATIDAL VOLUME (VT) AJ090QoqncwTppSelect Medical Cleveland Clinic Rehabilitation Hospital, BeachwoodComment on above:Performed By: #### 83935 #### [facility] [address] [place] [address], USABNP (B-TYPE NATRIURETIC PEPTIDE)on 42-02-4351Htttuccefzg peptide B mass conc (Bld)39 pg/mLNormal0-100The [facility] HospitalComment on above:Order Comment: No: Do not add to previous drawResult Comment: Given the appropriate clinical setting a BNP result of >100 pg/mL indicates congestive heart failure.Performed By: #### 64480 #### [facility] [address] [place] [address], [facility] CENTERCBC W/DIFFon 69-21-2852GPH BASOPHILS0.0 10*3/uLNormal 0.0-0.2The [facility] HospitalComment on above:Order Comment: No: Do not add to previous drawPerformed By: #### 10721 #### [facility] [address] [place] [address], USAABS IMM GRANS0.0 10*3/uLNormal0.0-0.2The [facility] HospitalComment on above:Order Comment: No: Do not add to previous drawPerformed By: #### 66831 #### [facility] [address] [place] [address], [facility] CENTERABS NEUTROPHILS5.0 10*3/uLNormal1.6-7.6The [facility] HospitalComment on above:Order Comment: No: Do not add to previous drawPerformed By: #### 26972 #### [facility] [address] [place] [address], USABasophils #/vol (Bld)0.4 %Normal0.0-1.0The [facility] HospitalComment on above:Order Comment: No: Do not add to previous drawPerformed By: #### 98854 #### [facility] [address] [place] [address], USAEosinophils #/vol (Bld)0.0 10*3/uLNormal0.0-0.5The [facility] HospitalComment on above:Order Comment: No: Do not add to previous drawPerformed By: #### 89114 #### [facility] [address] [place] [address], USAEosinophils/100 WBC (Bld)0.0 %Normal0.0-6.0The [facility] HospitalComment on above:Order Comment: No: Do not add to previous drawPerformed By: #### 85921 #### [facility] [address] [facility] [place] [address], USAErythrocyte distribution width Ratio (RBC)13.2 %Normal 11.5-15.0The [facility] HospitalComment on above:Order Comment: No: Do not add to previous drawPerformed By: #### 99674 #### [facility] [address] [facility] [place] [address], USAHematocrit Volume Fraction (Bld)43.7 %Zustlf40.0-45.0The [facility] HospitalComment on above:Order Comment: No: Do not add to previous drawPerformed By: #### 13193 #### [facility] [address] [facility] [place] [address], [facility] MEDICAL CENTERHemoglobin mass conc (Bld)14.6 g/tAAtqrad02.0-15.0The [facility] HospitalComment on above:Order Comment: No: Do not add to previous drawPerformed By: #### 98668 #### [facility] [address] [facility] [place] [address], USAIMMATURE GRANS0.3 %Normal0.0-1.0The [facility] HospitalComment on above:Order Comment: No: Do not add to previous draw Performed By: #### 31551 #### [facility] [address] [facility] [place] [place] [address], USALymphocytes #/vol (Bld)1.7 10*3/uLNormal1.2-4.0The [facility] HospitalComment on above:Order Comment: No: Do not add to previous drawPerformed By: #### 47867 #### [facility] [address] [place] [address], [facility] MEDICAL CENTERLymphocytes/100 WBC (Bld)24.8 %Hgvclw50.0-45.0The [facility] HospitalComment on above:Order Comment: No: Do not add to previous drawPerformed By: #### 23973 #### [facility] [address] [place] [address], [facility] Entitic mass (RBC)27.7 rfWxjjcl65.0-33.0The [facility] HospitalComment on above:Order Comment: No: Do not add to previous drawPerformed By: #### 12806 #### [facility] [address] [place] [id number], [facility] CITYHC mass conc (RBC)33.4 g/uMUwqpri41.0-35.0The [facility] HospitalComment on above:Order Comment: No: Do not add to previous drawPerformed By: #### 65150 #### [facility] [address] [place] [address], [facility] CITYV Entitic volume (RBC)82.9 wQAkktac25.0-98.0The [facility] HospitalComment on above:Order Comment: No: Do not add to previous drawPerformed By: #### 48221 #### [facility] [address] [place] [address], USAMonocytes #/vol (Bld)0.3 10*3/uLNormal0.1-1.0The [facility] HospitalComment on above:Order Comment: No: Do not add to previous drawPerformed By: #### 62281 #### [facility] [address] [place] [address], USAMONOS3.6 %Low5.0-12.0The [facility] HospitalComment on above:Order Comment: No: Do not add to previous drawPerformed By: #### 60310 #### [facility] [address] [place] [address], USANeutrophils/100 WBC (Bld)70.9 %Stloji89.0-72.0The [facility] HospitalComment on above:Order Comment: No: Do not add to previous drawPerformed By: #### 49712 #### [facility] [address] [place] [address], USANucleated RBC/100 WBC Ratio (Bld)0 %Normal0-0The [facility] HospitalComment on above:Order Comment: No: Do not add to previous drawPerformed By: #### 60467 #### [facility] [address] [place] [address], USAPLAT AKI816 10*3/qJVafbqc774-155Gig [facility] HospitalComment on above:Order Comment: No: Do not add to previous draw Performed By: #### 31860 #### [facility] [address] [place] [address], USARBC #/vol (Bld)5.27 10*6/uLHigh3.80-5.00The [facility] HospitalComment on above:Order Comment: No: Do not add to previous drawPerformed By: #### 38329 #### [facility] [address] [place] [address], USAWBC #/vol (Bld)7.03 10*3/uLNormal4.00-10.60The [facility] HospitalComment on above:Order Comment: No: Do not add to previous drawPerformed By: #### 06428 #### [facility] [address] [place] [address], USACOMP METABOLIC PANELon 90-62-1464Xaisywx mass conc4.1 g/dL Normal3.5-5.7The [facility] HospitalComment on above:Order Comment: No: Do not add to previous drawPerformed By: #### 18473, 38699, 04667, 01611 #### [facility] [address] [place] [address], USAALKALINE RPZBHV40 IU/OUyrfkk28-507Loh [facility] HospitalComment on above:Order Comment: No: Do not add to previous draw Performed By: #### 30526, 50740, 14061, 15466 #### [facility] [address] [place] [address], USAALT enzyme act/vol43 U/LNormal7-52The [facility] HospitalComment on above:Order Comment: No: Do not add to previous draw Performed By: #### 30593, 46035, 89933, 07937 #### [facility] [address] [place] [address], USAAST enzyme act/vol30 U/YJhjdli70-96Vie [facility] HospitalComment on above:Order Comment: No: Do not add to previous draw Performed By: #### 65780, 72430, 27054, 03246 #### [facility] [address] [place] [address], USABilirubin mass conc0.5 mg/dLNormal0.3-1.0The [facility] HospitalComment on above:Order Comment: No: Do not add to previous drawPerformed By: #### 38138, 07367, 72286, 38949 #### [facility] [address] [place] [address], USACalcium mass conc9.4 mg/dLNormal8.6-10.3The [facility] HospitalComment on above:Order Comment: No: Do not add to previous drawPerformed By: #### 36041, 22595, 83433, 16343 #### [facility] [address] [place] [address], USAChloride molar conc99 mmol/ZKuymzt29-438Kma [facility] HospitalComment on above:Order Comment: No: Do not add to previous drawPerformed By: #### 96794, 58789, 49480, 68413 #### [facility] [address] [place] [address], USACO2 molar conc24 mmol/WRddrnz14-73Vyq [facility] HospitalComment on above:Order Comment: No: Do not add to previous draw Performed By: #### 65055, 72736, 12533, 33048 #### [facility] [address] [place] [address], USACreatinine mass conc0.97 mg/dLNormal0.60-1.20The [facility] HospitalComment on above:Order Comment: No: Do not add to previous drawPerformed By: #### 73739, 35179, 31839, 13626 #### [facility] [address] [place] [address], USAGFR/1.73 sq M predicted among blacks MDRD vol rate/area (S/P/Bld)mL/min/{1.73_m2}Normal>60The [facility] HospitalComment on above:Order Comment: No: Do not add to previous drawPerformed By: #### 47706, 65804, 30033, 70845 #### [facility] [address] [place] [address], USAGFR/1.73 sq M predicted among non-blacks MDRD vol rate/area (S/P/Bld)59 ml/min/1.73sq mAbnormal>60The [facility] Comment on above:Order Comment: No: Do not add to previous drawPerformed By: #### 23129, 94894, 93120, 29840 #### [facility] [address] [place] [address], USAGlucose mass jjkt043 mg/tHSyzd24-345Olt [facility] HospitalComment on above:Order Comment: No: Do not add to previous drawPerformed By: #### 92437, 29333, 35810, 47424 #### [facility] [address] [place] [address], USAPotassium molar conc4.0 mmol/LNormal3.5-5.1The [facility] HospitalComment on above:Order Comment: No: Do not add to previous drawPerformed By: #### 91544, 95971, 03203, 40085 #### [facility] [address] [place] [address], USAProtein mass conc7.7 g/dLNormal6.0-8.3The [facility] HospitalComment on above:Order Comment: No: Do not add to previous drawPerformed By: #### 10878, 66855, 58875, 96430 #### [facility] [address] [place] [address], USASodium molar sgjg208 mmol/HGqp043-327Lxl [facility] HospitalComment on above:Order Comment: No: Do not add to previous drawPerformed By: #### 29232, 18319, 50902, 96744 #### [facility] [address] [place] [address], USAUrea nitrogen mass conc18 mg/dLNormal7-25The [facility] HospitalComment on above:Order Comment: No: Do not add to previous drawPerformed By: #### 07458, 17766, 41361, 72807 #### [facility] [address] [place] [address], USACPKon 37-01-7065MJ enzyme act/vol47 U/HVmdyfl84-391Ndu [facility] HospitalComment on above:Performed By: #### 93184, 50292, 33475, 87765 #### [facility] [address] [place] [address], USACT BRAIN W WO CONTRASTon 17-34-1008PY BRAIN W WO CONTRAST [facility] Department of Radiology [address] [place] [address] Patient Name: SHABANA STALLWORTH : 1960 Sex: F Age: Race: White Pt. Location: [place] [address] Patient Status: I Ordered Date: 05/23/2018 4:25:00 [...] findings. Electronically signed by:Jewel Barnett. Transcribed by: [email or web address], User Resident: STORMY ACEVEDO Electronically Signed by: JEWEL BARNETT @ 05/24/2018 07:57 AM I personally read this/these film(s) with this residentSelect Medical Cleveland Clinic Rehabilitation Hospital, Edwin ShawComment on above:Order Comment: R/O Seizure DisorderHistory and Physicalon 50-11-3237Nhpdxif and PhysicalMR#: [id number] [facility] Pt. Name: Shabana Stallworth Admitted: 05/23/2018 Date of : 1960 Attending Physician: Oral Ortiz MD Room #: VALE [id number] Discharge Date: HISTORY AND PHYSICAL CHIEF COMPLAINT: [...] 5.3, she was changed back from the [place] Thyroid to Synthroid, which she did the [...] Ortiz MD Date Trans: 05/23/2018 12:23 P/mmo DN_JN:[id number] [facility] HospitalLACTATE BLOODon 44-25-8359Xxkqwwf molar conc2.1 mmol/LNormal0.5-2.2The [facility] HospitalComment on above:Order Comment: No: Do not add to previous draw Performed By: #### 23243 #### [facility] [address]Operative Reporton 74-63-1776Xthfkwlbx ReportMR#: [id number] I [facility] Pt. Name: Shabana Stallworth Room #: VALE [id number] Discharge Date: Birthdate: 1960 OPERATIVE REPORT DATE [...] Dunlap MD Date Trans: 05/23/2018 09:22 P/mmo DN_JN:[id number] cc: Colt Boggs M.D. [address] [place] [address] [facility] [address]QpxnaeShjSelect Medical Cleveland Clinic Rehabilitation Hospital, Edwin ShawPOC GLUCOSE LABon 62-54-5918Iugnbgd mass xrlx008 mg/gGQxou64-789Eac [facility] HospitalComment on above:Performed By: #### 93737 #### [facility] [address] [place] [address], USAPORTABLE CHEST 1 VIEWon 37-28-9905MIZFRCKU CHEST 1 VIEW [facility] Department of Radiology [address] [place] [id number] Patient Name: SHABANA STALLWORTH : 1960 Sex: F Age: Race: White Pt. Location: [place] [address] Patient Status: I Ordered Date: 05/23/2018 1:15:00 [...] findings. Electronically signed by:Jewel Barnett. Transcribed by: [email or web address], User Resident: STORMY ACEVEDO Electronically Signed by: JEWEL BARNETT @ 05/23/2018 08:48 PM I personally read this/these film(s) with this residentSelect Medical Cleveland Clinic Rehabilitation Hospital, Edwin ShawComment on above:Order Comment: Check NG Tube Position, intubationPROLACTINon 08-36-7221Qwtpxzk mass conc6.23 ng/mLNormal1.39-24.20The [facility] HospitalComment on above:Performed By: #### 91013, 32977, 91570, 95922 #### [facility] [address] [place] [address], USATSH3 WITH REFLEXon 31-24-4897N4 free mass conc1.23 ng/dL Normal0.71-1.85The [facility] HospitalComment on above:Order Comment: No: Do not add to previous drawPerformed By: #### 78937, 45472, 37508, 75578 #### [facility] [address] [place] [address], [facility]ERT[facility] 3RD GENERATION1.62 uIU/mLNormal0.34-5.60The [facility] HospitalComment on above:Order Comment: No: Do not add to previous drawPerformed By: #### 07089, 19339, 79888, 50550 #### [facility] [address] [facility] [place] [address], [facility] Vital Signs Date TimeVital SignValuePerforming LufcrtrzfTlwfkluv71-40-6827 09:40-0400Body lmhecy893.6 cmEmary Boggs MD Work Phone: [phone] [place], [place] [address]Ubozzrafsi29-60-6500 09:40-0400Body mass index (BMI) [Ratio]35.67 kg/z2UrxtixColt Boggs MD Work Phone: [phone])[address] [place], [place] [address]Yvkuccjzso33-20-5438 09:40-0400Body ahdqug834.25 kgColt Boggs MD Work Phone: [phone] [place], [place] [address]Cnnedoyrzm83-92-7649 09:40-0400Diastolic blood klsnhyav55 mm[Hg]Colt Boggs MD Work Phone: 1(451)[facility] HealthcareWlovzepkty26-68-8537 09:40-0400Heart rate71 /min Colt Boggs MD Work Phone: [phone] HealthcareCpamzzwhro72-91-4403 09:40-2688WsV6% (BldA) [Mass fraction]98 %Colt Boggs MD Work Phone: [phone])[address] [place], [place] [address]Pnheozvapx79-62-5464 09:40-0400Systolic blood abvaldqf955 mm[Hg]Colt Boggs MD Work Phone: [phone] HealthcarePwognfdotp97-45-0354 10:31-0400Body xyslfn354.6 Karla Boggs MD Work Phone: 1(455)[facility] HealthcareMxnyyopaaq25-19-8401 10:31-0400Body mass index (BMI) [Ratio]35.67 kg/v2DmofszColt Boggs MD Work Phone: 1(567)[address] [place], [place] 977[address]6-24-2025 10:31-0400Body .25 kgColt Boggs MD Work Phone: 1(810)[address] [place], [place] 9771106-24-2025 10:31-0400Heart rate78 /min Colt Boggs MD Work Phone: [phone])[address] [place], [place] 9771106-24-2025 10:31-4653GfK1% (BldA) [Mass fraction]97 %Colt Boggs MD Work Phone: [phone])[address] [place], [place] 9771112-02-2024 09:23-0500Body ygkwij509.6 cmEmary Boggs MD Work Phone: [phone])[address] [place], [place] 9771112-02-2024 09:23-0500Body mass index (BMI) [Ratio]35.51 kg/t4PnxqziColt Boggs MD Work Phone: 1(879)[address] [place], [place] 9771112-02-2024 09:23-0500Body oybhka13.79 kgColt Boggs MD Work Phone: [phone])[address] [place], [place] 9771112-02-2024 09:23-0500Diastolic blood nyojvnty87 mm[Hg]Colt Boggs MD Work Phone: 1(545)[address] [place], [place] 9771112-02-2024 09:23-0500Heart rate79 /min Colt Boggs MD Work Phone: [phone])[address] [place], [place] 9771112-02-2024 09:23-3368MvO5% (BldA) [Mass fraction]98 %Colt Boggs MD Work Phone: [phone])[address] [place], [place] 9771112-02-2024 09:23-0500Systolic blood dmykeuys916 mm[Hg]Colt Boggs MD Work Phone: 1(818)[address] [place], [place] 9771110-23-2024 08:53-0400Body wdyolw125.6 Karla Boggs MD Work Phone: [phone] [place], [place] 9771110-23-2024 08:53-0400Body mass index (BMI) [Ratio]35.51 kg/e7BvfkjmColt Boggs MD Work Phone: [phone])[address] [place], [place] 9771110-23-2024 08:53-0400Body dwhull07.79 kgColt Boggs MD Work Phone: 1(607)[address] [place], [place] 977[address]8-26-2024 08:54-0400Body chjyfg571.6 cmEmary Boggs MD Work Phone: [phone] [place], [place] 9771108-26-2024 08:54-0400Body mass index (BMI) [Ratio]35.51 kg/c2LnbqscColt Boggs MD Work Phone: [phone])[address] [place], [place] 9771108-26-2024 08:54-0400Body zenyul43.79 kgColt Boggs MD Work Phone: 1(986)[address] [place], [place] 9771108-26-2024 08:54-0400Heart rate75 /min Colt Boggs MD Work Phone: [phone] [place], [place] 9771108-26-2024 08:54-1100XyD5% (BldA) [Mass fraction]99 %Colt Boggs MD Work Phone: [phone] [place], [place] 9771102-16-2019 06:10-0500Respiratory rate12 /Jake BOGGSUniversity Hospitals Ahuja Medical CenterComment on above: Performed By: #### [id number], [id number], [id number], [id number] #### [facility] [address] [place] [address], [id number] 06:54-0500Respiratory rate12 /Jake BOGGS [facility] HospitalComment on above:Performed By: #### [id number], [id number], [id number], [id number] #### [facility] [address] [place] [address], [id number] 07:11-0500Respiratory rate12 /Jake BOGGS [facility]hu[facility] Medical CenterComment on above:Performed By: #### [id number] #### [facility] [address] [place] [address], [id number] 06:37-0500Respiratory rate12 /Jake BOGGS [facility]ja Medical CenterComment on above:Performed By: #### [id number] #### [facility] [address] [place] [address], [id number] 07:31-0500Respiratory rate12 /Jake BOGGS [facility]ja Medical CenterComment on above:Performed By: #### [id number] #### [facility] [address] [place] [address], [id number] 18:54-0500Respiratory rate12 /Jake BOGGS [facility] HospitalComment on above:Performed By: #### [id number] #### [facility] [address] [place] [address], [facility] Encounters Encounter DateEncounter TypeCare ProviderFacilityStart: 02-09-2025 End: 54-52-9478Qoiknxyudelka Boggs MD Work Phone: [address]tart: 02-09-2025 End: 43-83-2817Jrprycyudelka Boggs MD Work Phone: [address]: 02-09-2025 End: 69-06-7901bebimoymywKUSBMA J HEMEYERNOMS HealthcareComment on above:Benign essential hypertension; Type 2 diabetes mellitus with stage 3a chronic kidney disease, with long-term current use of insulin ([facility]); Type 2 diabetes mellitus with hyperglycemia, with long-term current use of insulin ([facility])Start: 02-09-2025 End: 73-01-5957Ttnqrc outpatient visit 25 minutesColt Boggs MD Work Phone: [address] MedicineComment on above: Pneumonia of right lower lobe due to infectious organism (Primary Dx); Benign essential hypertension; Hypertensive nephropathy; Mixed hyperlipidemia; Myalgia due to statin; Morbid obesity due to excess calories ([facility]); BMI 35.0-35.9,adult; Type 2 diabetes mellitus with stage 2 chronic kidney disease, without long-term current use of insulin (HCC); Type 2 diabetes mellitus with hyperglycemia, with long-term current use of insulin (HCC); Postsurgical dumping syndromeStart: 01-07-2025 End: 91-91-2002Sjrpzyvsm Result Driss Boggs MD Work Phone: noms External Department UnsolicitedStart: 01-07-2025 End: 24-16-5421Rwprbmsle Result Driss Boggs MD Work Phone: noms External Department UnsolicitedStart: 10-05-2024 End: 38-65-9574Yaaumc flowsheetColt Boggs MD Work Phone: noms CI FM 100Start: 10-05-2024 End: 40-35-0979Yscvqv flowsSaad Boggs MD Work Phone: noms CI FM 100Start: 10-05-2024 End: 69-71-4656Mupqhx outpatient visit 25 minutesEdirma Boggs MD Work [...] ; Morbid obesity due to excess calories ([facility]); Postsurgical dumping syndrome; Myalgia due to statinStart: 10-05-2024 End: 98-03-3619llmyappkimUOVOUX J HEMEYERNot AvailableStart: 09-21-2024 End: 55-18-1615Oodzqkxyw Result Driss Boggs MD Work Phone: noms External Department UnsolicitedStart: 09-21-2024 End: 49-49-2635Kcaxzeboo Result Driss Boggs MD Work Phone: noms External Department UnsolicitedStart: 08-01-2024 ambulatoryCOLT BOGGSCrisp Regional Hospital PPGStart: 07-06-2024 End: 11-89-5670tnzadevayuJHHGIF J HEMEYERNot AvailableStart: 03-15-2024 End: 00-11-0268Svzewz Basia Boggs MD Work Phone: NOMS CI FM 100Start: 03-15-2024 End: 31-13-8612Rdmuni Basia Boggs MD Work Phone: NOMS CI FM 100Start: 03-15-2024 End: 03-51-1067Pqampv outpatient visit 25 minutesColt Boggs MD Work Phone: NOMS CI FM 100Comment on above:Benign essential hypertension (CMS/HCC); Hypertensive nephropathy (CMS/HCC); Stage 3a chronic kidney disease (HCC) (CMS/HCC); Type 2 diabetes mellitus with stage 3a chronic kidney disease, without long-term current use of insulin (HCC) (CMS/HCC); Mixed hyperlipidemia (CMS/HCC); Myalgia due to statin; Morbid obesity due to excess calories (CMS/HCC); BMI 35.0-35.9,adultStart: 03-15-2024 End: 89-27-3965dheiyoelwxKYFKYF J HEMEYERNot AvailableStart: 03-02-2024 End: 64-35-3466Sdwjupkly Result Driss Boggs MD Work Phone: NOMS External Department UnsolicitedStart: 03-02-2024 End: 33-92-0560Qcyrwoyrx Result Driss Boggs MD Work Phone: NOVB External Department UnsolicitedStart: 02-04-2024 End: 41-21-3597Povpcw Basia Boggs MD Work Phone: NOMS CI FM 100Start: 02-04-2024 End: 15-43-1805Zokoek Basia Boggs MD Work Phone: NOMS CI FM 100Start: 02-04-2024 End: 73-46-7452Kwijuc outpatient visit 25 minutesColt Boggs MD Work Phone: NOMS CI FM 100Comment on above:Acquired hypothyroidism (CMS/HCC) (Primary Dx); Bharat's disease (CMS/HCC); Graves disease (CMS/HCC); Chronic fatigue; Morbid obesity due to excess calories (CMS/HCC); PolypharmacyStart: 01-13-2024 End: 43-08-1555Tfkrqwnlr Result Driss Boggs MD Work Phone: noms External Department UnsolicitedStart: 01-13-2024 End: 96-96-5314Gamtdvwlz Result Driss Boggs MD Work Phone: noms External Department UnsolicitedStart: 01-10-2024 End: 44-06-0492CpnswuNxeboo J Hemeyer MD Work Phone: NOTW CI FM 100Comment on above:Type 2 diabetes mellitus with stage 3a chronic kidney disease, without long-term current use of insulin (HCC) (CMS/HCC)Start: 12-08-2023 End: 49-36-2073Fegffm flowsheetColt Boggs MD Work Phone: NOMS CI FM 100Start: 12-08-2023 End: 44-36-3059Nbsckz flowsSaad Boggs MD Work Phone: noms CI FM 100Start: 12-08-2023 End: 46-68-8895Yzzlnhi encounter statusEdirma Boggs MD Work Phone: [facility] Work Phone: Start: 12-08-2023 End: 67-66-6933Aazyagcu preventive med est patient 40-64yrsEdirma Boggs MD Work Phone: NOUL CI FM 100Comment on above:Encounter for wellness [...] index (BMI) of35.0 to 35.9 in adult ([facility]); MicroalbuminuriaStart: 08-13-2022 End: 76-91-5596sawinxgbnaNB EDWARD HEMEEDINSON .Facility:Q9Stegp: 07-04-2022 End: 98-03-7909tijxwcuyshNA EDWARD HEMEEDINSON .Facility:V6Svokj: 06-20-2022 ambulatoryDR EDIRMA BOGGS .Facility:L6Neytw: 02-25-2022 End: 80-58-9545pkdrhqgcbdMH EDWARD HEMEEDINSON .Facility:Z7Fvdgd: 09-01-2021 End: 25-64-3804tgdqmecfevDN EDWARD HEMEEDINSON .Facility:H0Qkywq: 05-23-2018 End: 85-11-6346Nzhwzvqbxb and management of inpatientEDWARD HEMEYERFacility:[facility] Procedures DateProcedureProcedure DetailPerforming ClinicianStart: 27-63-2592FNT HEMOGLOBIN V0WYjtvpdColt Boggs MD Work Phone: Start: 57-27-9225WCK MICROALB CREAT RATIO RANDOMColt Boggs MD Work Phone: Start: 91-10-5789GUI HEMOGLOBIN Z7QNiqfpeColt Boggs MD Work Phone: Start: 96-06-4251LJR THYROXINE (T4) FREEColt Boggs MD Work Phone: Start: 98-78-1748QIJ THYROXINE (T4) FREEColt Boggs MD Work Phone: Start: 03-57-4002IoiixyeamivIgpxhm Hemeyer MD Work Phone: Start: 19-59-9614Vsnyv albumin semiquantitativeColt Boggs MD Work Phone: Start: 65-61-8014BwuxfvmvmzcOfoylj Hemeyer MD Work Phone: Start: 26-02-2495Nfyvazum of Spinal Canal, Percutaneous Approach, DiagnosticEHAB A ELTAHAWYStart: 70-67-0434DCGBLTIXRKW OF SPINAL CORDEHAB A ELTAHAWYStart: 33-69-9492BHFKQRZVC OF ENDOTRACHEAL AIRWAY INTO TRACHEA, VIA OPENINGREG JEANIStart: 10-14-4640VGVJXBK OF ARTERIAL SATURATION, PERIPHERAL, PERC APPROACHJAINDIO WILLEYStart: 52-68-1321VTDICKVYFNO OF MAINTENANCE OF WAY SUPERINTENDENT ELECTR ACTIVITY, MEDICATION ADMINISTRATION PROFESSIONAL APPROACHMARIBEL MARINELLIStart: 05-23-[address] SUPERINTENDENT ELECTR ACTIVITY, MEDICATION ADMINISTRATION PROFESSIONAL MOODY MARINELLIStart: 16-07-6557ZJOAIPUXJFF VENTILATION, GREATER THAN 96 CONSECUTIVE HOURSREG RAHMAN Plan of Treatment DateCare ActivityDetailAuthorStart: 04-94-2001Cmvqaqasd for malignant neoplasm of colonNOMS HealthcareStart: 44-04-7427Sgqajzox screeningDiabetes: Retinopathy ScreeningNOMS HealthcareStart: 19-21-1124Dgfzi screening for proteinDiabetes: Urine Protein ScreeningNOMT HealthcareStart: 70-80-7910Etqmebpcz vaccination Influenza Vaccine (#1)[facility] HealthcareComment on above:Postponed from 12/13/2024 (Patient Refused)Start: 81-72-7730Aujkiieiyw A1c measurementDiabetes: Hemoglobin B5DMQAQ HealthcareStart: 01-10-2025 End: 59-98-9169Jbhjdqw encounter icfevvsyy34/29/2025 10:00 AM EDT Office Visit [facility] [place] [address] [place] [address] [place] [address] Colt Boggs MD [address] [place], [place] [phone] (Work) (Fax)[facility] 01-[facility]-2025 End: 09-51-5390Kbmgrwf encounter gnlewzgfc21/22/2025 9:30 AM EDT Office Visit [facility] CI FM [address] [facility] [address] [place] [address] Colt Boggs MD [address] [place] [address] NOMS CI FM 100Start: 11-14-5980Yujcenfjjw A1c measurementDiabetes: Hemoglobin P8PYTNN HealthcareStart: 45-51-5247Drrkjnbqc for malignant neoplasm of breastMammogramJORDAN VALLEY [facility] HealthcareStart: 12-13-2024 Influenza vaccinationNOMT HealthcareStart: 98-22-2924Yuswe screening for protein Diabetes: Urine Protein ScreeningJORDAN VALLEY MEDICAL CENTER HealthcareStart: 10-05-2024 End: 39-91-3343Vjjxjabhwq A1c/Hemoglobin.total in BloodHemoglobin A1c Lab Routine Type 2 diabetes mellitus with stage 2 chronic kidney disease, without long-term current use of insulin ([facility]) Expected: 10/05/2024 (Approximate), Expires: 10/05/2025[facility] Work Phone: Comment on above:Expected: 10/05/2024 (Approximate), Expires: 10/05/2025Start: 10-05-2024 End: 55-51-9156Upikrdm encounter procedureNOMS CI FM 100Comment on above:Benign essential hypertension ; Hypertensive nephropathy ; Stage 3a chronic kidney disease ([facility]); Type 2 diabetes mellitus with stage 3a chronic kidney disease, without long-term current use of insulin ([facility]); Mixed hyperlipidemia ; Morbid obesity due to excess calories ([facility])Start: 06-08-2024 End: 35-32-8582Fiyncmq encounter jmykdlhfj60/25/2025 9:00 AM EST Office Visit [facility] CI [facility] 100 [address] [facility] 100 [place] [address] Colt Boggs MD [address] [facility] [address] [place] [address] NOMS CI FM 100Start: 74-05-4142Jinpanml screeningDiabetes: Retinopathy ScreeningJORDAN VALLEY MEDICAL [facility]ENTER HealthcareStart: 03-15-2024 End: 03-00-5335Hemfdwrynn A1c/Hemoglobin.total in BloodHemoglobin A1c Lab Routine Type 2 diabetes mellitus with stage 3a chronic kidney disease, without long-term current use of insulin (HCC) ([facility]) Expected: 03/15/2024 (Approximate), Expires: 03/15/2025[facility] Work Phone: Comment on above:Expected: 03/15/2024 (Approximate), Expires: 03/15/2025Start: 03-15-2024 End: 30-63-3008Asnabmz encounter procedureNOMS CI FM 100Comment on above:Benign essential hypertension (CMS/HCC); Hypertensive nephropathy (CMS/HCC); Stage 3a chronic kidney disease (HCC) (CMS/HCC); Mixed hyperlipidemia (CMS/HCC); Myalgia due to statin; Type 2 diabetes mellitus with stage 3a chronic kidney disease, without long-term current use of insulin (HCC) (CMS/HCC); Morbid obesity due to excess calories (CMS/HCC); BMI 35.0-35.9,adultStart: 02-04-2024 End: 31-07-6641Opuafpe encounter dguuubytt28/23/2024 9:00 AM EDT Office Visit [facility] CI [facility] [address] [phone] Colt Boggs MD [address] [place] [address] (Fax) Bharat's disease (CMS/HCC); Acquired hypothyroidism (CMS/HCC); Chronic fatigue; Morbid obesity due to excess calories (CMS/HCC)NOMS CI FM 100Comment on above:Bharat's disease (CMS/HCC); Acquired hypothyroidism (CMS/HCC); Chronic fatigue; Morbid obesity due to excess calories (CMS/HCC)Start: 75-67-8443Hdgudxcwz vaccinationInfluenza Vaccine (#1)[facility] HealthcareStart: 12-08-2023 End: 70-29-4914GM Breast - bilateral ScreeningBilateral screening mammogram Imaging Routine Screening mammogram, encounter for Expected: 12/08/2023, Expires: 02/06/2025[facility] Work Phone: Comment on above:Expected: 12/08/2023, Expires: 02/06/2025Start: 12-08-2023 End: 77-13-8652Divzemp encounter ypdvubamg92/26/2024 9:00 AM EDT Office Visit [facility] [address] [phone] Colt Boggs MD [address] [place] [address] Encounter for wellness examination in adult; Advance directive discussed with patient; Encounter for screening for malignant neoplasm of colon; Screening for cervical cancer; Screening mammogram, encounter for; Screening for osteoporosisNOMS FM 100Comment on above:Encounter for wellness examination in adult; Advance directive discussed with patient; Encounter for screening for malignant neoplasm of colon; Screening for cervical cancer; Screening mammogram, encounter for; Screening for osteoporosisStart: 89-68-2371Hzgod screening for proteinDiabetes: Urine Protein ScreeningMissouri Southern HealthcareStart: 99-80-1716Ovcuuxgoly A1c measurementDiabetes: Hemoglobin R1YTTLMMissouri Southern HealthcareStart: 36-53-3985Gqpojxeyo for malignant neoplasm of breastMammogramMissouri Southern HealthcareStart: 38-28-4586Kslrkahji for malignant neoplasm of cervixNOMT HealthcareStart: 95-80-3694Hdvmvtwww for malignant neoplasm of cervixPap SmearMissouri Southern HealthcareStart: 09-57-4019Npggougdg for malignant neoplasm of colonNOMT HealthcareNoninvasive colorectal cancer DNA and occult blood screening [Presence] in StoolCologuard colon cancer screening Lab Routine Encounter for screening for malignant neoplasm of colon Ordered: 12/08/2023[facility] HealthcareComment on above:Ordered: 12/08/2023 Immunizations Immunization DateImmunizationNotesCare TkkkemlnMswadkba67-99-1175hxhefzghj, injectable, quadrivalent, preservative freeColt Boggs MD Work Phone: [facility] HealthcareQvzlcprixz23-17-3498iqdvegeai virus vaccine, unspecified formulationColt Boggs MD Work Phone: [facility] Payers DatePayer CategoryPayerPolicy [id number] 2023Medicaid [id number] 2..84[id number] 2.16.840.1.726388.3.57[id number] 2.16.840.1.735370.3.57[id number] 2.16.840.1.559444.3.57[id number] 2.16.840.1.021973.3.57[id number] 2.16.840.1.276889.3.57[id number] 2.16.840.1.174013.3.57[id number] 2.16.840.1.093052.3.57[id number] 2.16.840.1.042853.3.57[id number] 2.16.840.1.842226.3.57[id number] 2.16.840.1.261515.3.57[id number] 2.16.840.1.229336.3.579.[id number] [id number] Social History DateTypeDetailFacilityStart: 15-82-2076Yribkkj smoking status NHISNever smoked tobaccoNOMS HealthcareStart: 35-64-0762Jviilnc use and exposureSmokeless tobacco non-userNOMS HealthcareStart: 12-08-2023 End: 16-79-9791Fcbjwtkon beverage intakeLifetime non-drinker (finding)[facility] HealthcareStart: 01-01-2023 End: 98-35-3724Tfkmlxf of Social functionNOMT HealthcareStart: 01-01-2023 End: 92-77-9805Wlmsdplodhi, Afraid, Rape, and Kick questionnaire [HARK][facility] HealthcareWithin the last year, have you been afraid of your partner or ex-partner?NoNOMS HealthcareDo you belong to any clubs or organizations such as presybeterian groups, unions, fraternal or athletic groups, or school groups?YesNOMS HealthcareAre you now , , , , never or living with a partner?MarriedNOMT HealthcareHow often to you have a drink containing alcohol?NeverNOMT HealthcareStart: 68-29-4509Xub many standard drinks containing alcohol do you have on a typical day?Patient does not drinkNOMT HealthcareHow hard is it for you to [...] before (I/we) got money to buy more.Never trueNOMT HealthcareStart: 64-14-8128Ewqgykmql56MMJT HealthcareStart: 1960 Sex assigned at birthNot on fileMissouri Southern HealthcareNEGATED: Highlighted rowStart: NINFHistory of tobacco usePassive smokerMiss[facility] Healthcare Functional Status PbqvKxlldvvpejNqhrysOugermnu70-97-4578Lqyexgi Health Questionnaire 2 item (PHQ- 2) [Reported][facility] HealthcareFsopxvqtrr05-58-9531Umqiuce Health Questionnaire 2 item (PHQ- 2) [Reported][facility] Clinical Notes 12-08-2023 to 02-15-2025 Note Date & WreiQjmoPqktfjdv68-76-2920 Evaluation note* Diagnosis Type 2 diabetes mellitus [...] statin Morbid obesity due to excess calories ([facility]) BMI 35.0-35.9,adult Type 2 diabetes mellitus with stage 2 chronic kidney disease, without long-term current use of insulin (HCC) Type 2 diabetes mellitus with hyperglycemia, with long-term current use of insulin ([facility]) Postsurgical dumping syndrome documented in this encounter [facility] HealthcareHwvqiohxot05-35-3941 History of Present illness Narrative* Colt Boggs [...] 6. Morbid obesity due to excess calories ([facility]) Chronic problem we have discussed lifestyle changes [...] hyperglycemia, with long-term current use of insulin ([facility]) Chronic problem still not to goal with [...] other medications. 120 tablet 1 Continuous Glucose Quality Rep (FreeStyle Sincere 3 [place]) device 1 Device See administration instructions 1 [...] file prior to visit. documented in this encounterMissouri Southern HealthcareAbtzoipqqj53-15-1350 Evaluation note* Diagnosis Type 2 diabetes mellitus with stage 3a chronic kidney disease, without long-term current use of insulin (HCC) Mixed hyperlipidemia Mixed hyperlipidemia Benign essential hypertension Essential hypertension, benign Hypertensive nephropathy Unspecified hypertensive kidney disease with chronic kidney disease stage I through stage IV, or unspecified Stage 3a chronic kidney disease ([facility]) Benign essential hypertension- Primary Essential hypertension, benign [...] hyperlipidemia Morbid obesity due to excess calories ([facility]) Postsurgical dumping syndrome Myalgia due to statin documented in this encounter [facility] HealthcareYwnphbcfzx07-66-9072 History of Present illness Narrative* Colt Boggs [...] which also cause this. documented in this encounterMissouri Southern HealthcareLsbhrqrzcr06-96-0511 History of Present illness Narrative* Colt Boggs [...] prior to visit. 1. Benign essential hypertension (CMS/[facility]) Chronic problem, stable, to goal. In prescribing [...] defines the morbid obesity documented in this encounterMissouri Southern HealthcareGkyaqhywie99-14-0596 Evaluation note* Diagnosis Type 2 diabetes mellitus [...] (CMS/HCC) BMI 35.0-35.9,adult documented in this encounter [facility] HealthcareKihedvmfmp68-13-6625 History of Present illness Narrative* Colt Boggs [...] involvement before. She follows with and I hearing healthcare practitioner. 4. Chronic fatigue Chronic problem, stable, complex in nature with moderate decision making. I discussed with the patient and/or their customer service representative teller, their fatigue issues. We discussed how this [...] of evaluation and management. documented in this encounterMissouri Southern HealthcareYnimzyvoxl12-28-1310 Evaluation note* Diagnosis Type 2 diabetes mellitus with stage 3a chronic kidney disease, without long-term current use of insulin (HCC) (CMS/HCC) Mixed hyperlipidemia (CMS/HCC) Mixed hyperlipidemia Benign essential hypertension (CMS/HCC) Essential hypertension, benign Hypertensive nephropathy (CMS/HCC) Unspecified hypertensive kidney disease with chronic kidney disease stage I through stage IV, or unspecified Stage 3a chronic kidney disease (HCC) ([facility]) Acquired hypothyroidism (CMS/HCC)- Primary Unspecified hypothyroidism Bharat's disease (CMS/HCC) Chronic lymphocytic thyroiditis Graves disease (CMS/HCC) Toxic diffuse goiter without mention of thyrotoxic crisis or storm Chronic fatigue Other malaise and fatigue Morbid obesity due to excess calories ([facility]) Polypharmacy Issue of repeat prescriptions documented in this encounter [facility] HealthcareOtoelclife31-83-3326 History of Present illness Narrative* Colt Boggs MD - 12/08/2023 9:00 AM EDT Images from the original note were not included. Patient ID: Shabana Stallworth is a 63 y.o. female who presents for: See Scanned Wellness packet Advance Directive/Living Will: No Health Care Power of Breaker Layer: No Review of Systems Constitutional: Negative [...] through a living will, durable power of gauge maker apprentice for healthcare, or other advanced directives. We [...] long- term current use of insulin (HCC) ([facility]) Patient was overdue And is screen today. - POCT microalbumin manually resulted 9. Class 2 severe obesity due to excess calories with serious comorbidity and body mass index (BMI)of 35.0 to 35.9 in adult ([facility]) Chronic problems and we have discussed multiple [...] stratification for cardiovascular disease. documented in this encounterNOMT HealthcareEvaluation note* Diagnosis Encounter for wellness examination [...] disease, without long-term current use of insulin ([facility]) ([facility]) Class 2 severe obesity due to excess calories with serious comorbidity and body mass index (BMI) of35.0 to 35.9 in adult ([facility]) Microalbuminuria Proteinuria documented in this encounter [facility] HealthcareEvaluation note* Diagnosis Type 2 diabetes mellitus with stage 3a chronic kidney disease, without long-term current use of insulin (HCC) ([facility]) documented in this encounter [facility] HealthcareEvaluation note* Diagnosis Type 2 diabetes mellitus with stage 3a chronic kidney disease, without long-term current use of insulin ([facility]) Mixed hyperlipidemia Benign essential hypertension Essential hypertension, benign Hypertensive nephropathy Unspecified hypertensive kidney disease with chronic kidney disease stage I through stage IV, or unspecified Stage 3a chronic kidney disease ([facility]) Benign essential hypertension Essential hypertension, benign Type 2 diabetes mellitus with stage 3a chronic kidney disease, with long-term current use of insulin (HCC) Type 2 diabetes mellitus with hyperglycemia, with long-term current use of insulin ([facility]) documented in this encounter [facility] Healthcare Summary Purpose Family History No Family History Records FoundNo Family History Records FoundNo Family History Records FoundNo Family History Records Found Advance Directives No Advanced Directives Records FoundNo Advanced Directives Records FoundNo Advanced Directives Records FoundNo Advanced Directives Records Found Hospital Course Note MR#: [id number] I [facility] Pt. Name: Shabana Stallworth Admitted: 05/23/2018 [...] and content) DATE CREATED AUTHOR 07/07/2018 [facility] DATE CREATED AUTHOR AUTHOR'S ORGANIZ ATION 08/20/2022 [facility] DATE CREATED AUTHOR AUTHOR'S ORGANIZ ATION 08/02/2024 [facility] DATE CREATED AUTHOR AUTHOR'S ORGANIZ ATION 02/10/2025 [facility] EPIC Care Teams (unrecognized sec tion and content) Team MemberRelationshipSpecialtyStart DateEnd Date Colt Boggs MD [address] [place] [id number] PCP - GeneralFamily Medicine10/16/22 Colt Boggs MD [address] [place] [address] PCP - [facility] [place] [facility]07/14/23Team MemberRelationshipSpecialtyStart DateEnd Date Colt Boggs MD [address] [place] [address] PCP - GeneralFamily Medicine10/16/22 Colt Boggs MD [address] [place] [address] (Fax) PCP - [facility] [place] [facility]07/14/23Team MemberRelationshipSpecialtyStart DateEnd Date Colt Boggs MD [address] [place] [address] PCP - GeneralFami Medicine10/16/22 Colt Boggs MD [address] [place] [address] (Fax) PCP - [facility] [place] [facility]07/14/23Team MemberRelationshipSpecialtyStart DateEnd Date Colt Boggs MD (Fax) PCP - GeneralFamily Medicine10/16/22 Colt Boggs MD [address] [place] [address] (Fax) PCP - [facility] [place] [facility]07/14/23Team MemberRelationshipSpecialtyStart DateEnd Date Colt Boggs MD (Fax) PCP - GeneralFamily Medicine10/16/22 Colt Boggs MD [address] [place] [address] (Fax) PCP - [facility] [place] [facility] [facility]07/14/23Team MemberRelationshipSpecialtyStart DateEnd Date Colt Boggs MD (Fax) PCP - GeneralFamily Medicine10/16/22 Colt Boggs MD [address] [place] [address] (Fax) PCP - [facility] [place] [facility]07/14/23Team MemberRelationshipSpecialtyStart DateEnd Date Colt Boggs MD [address] [place] [phone] PCP - Generalmi Medicine10/16/22Team MemberRelationshipSpecialtyStart DateEnd Date Colt Boggs MD [address] [place] [phone] PCP - Generalmi Medicine10/16/22Team MemberRelationshipSpecialtyStart DateEnd Date Colt Boggs MD [address] [place] [phone] PCP - Generalmi Medicine10/16/22 Colt Boggs MD [address] [place] [address] (Fax) PCP - [facility] [place] [facility]07/14/23Team MemberRelationshipSpecialtyStart DateEnd Date Colt Boggs MD (Fax) PCP - GeneralFamily Medicine10/16/22 Colt Boggs MD [address] [place] [address] (Fax) PCP - [facility] [place] [facility]07/14/23Team MemberRelationshipSpecialtyStart DateEnd Date Colt Boggs MD (Fax) PCP - GeneralFamily Medicine10/16/22 Colt Boggs MD [address] [place] [address] (Fax) PCP - [facility] [place] [facility]07/14/23Team MemberRelationshipSpecialtyStart DateEnd Date Colt Boggs MD (Fax) [facility] - [facility] Colt Boggs MD [address] [place] [address] (Fax) PCP - [facility] [place] [facility]07/14/23Team MemberRelationshipSpecialtyStart DateEnd Date Colt Boggs MD (Fax) PCP - Generalmi Medicine10/16/22 Colt Boggs MD [address] [place] [address] (Fax) PCP - [facility] [place] [facility]07/14/23Team MemberRelationshipSpecialtyStart DateEnd Date Colt Boggs MD (Fax) [facility] Colt Boggs MD [address] [place] [address] (Fax) PCP - [facility] [place] [facility]07/14/23Team MemberRelationshipSpecialtyStart DateEnd Date Colt Boggs MD [address] [facility] [address] [place] [address] (Fax) PCP - [facility] [place] [facility]07/14/23 Colt Boggs MD [address] [facility] [address] [place] [address] (Fax) PCP - Generalmily Eluuqngj22/29/25Team MemberRelationshipSpecialtyStart Date End Date Colt Boggs MD [address] [facility] [address] [place] [address] (Fax) PCP - [facility] [place] [facility]07/14/23 Colt Boggs MD [address] [facility] [address] [place] [address] (Fax) PCP - Generalmi Kepiuych46/29/25 Reason for Visit (unrecogniz ed section and [...] BE BASED ON THE PRIMARY CLINICAL RECORDS. [facility] [employer] [facility]. provides no warranty or guarantee of the accuracy or completeness of information in this document.
[2025-03-25 09:33] LABS: Thyroid Stimulating Hormone 2.019 uIU/mL (0.358-3.740)
== END 2025-03-25 08:24 | disposition home or self-care (01) ==
LOC: LAB 08:25
PROVIDERS: PCP Family Medicine; Visit Provider Family Medicine
DX: E11.22 Type 2 diabetes mellitus with diabetic chronic kidney disease (principal); N18.31 Chronic kidney disease, stage 3a
CPT/HCPCS: 36415; 83036; 84439; 84443